=== PATIENT | female | born 1970 | race Caucasian/White ===

== ENCOUNTER 2023-03-24 08:31 | Day surgery (SDC) | payer BC, SELFPAY ==
[2023-03-16 15:09] VITALS: BMI 24.7
[2023-03-24 08:48] VITALS: BMI 23.7
[2023-03-24 08:54] VITALS: BP 107/73; PULSE 88; RESP 18; TEMP 36.4; O2SAT 97
[2023-03-24] MEDS: LACTATED RINGER'S SOLUTION 1,000 ML 50 ML IV (08:56)
[2023-03-24 10:33] VITALS: BP 95/65; PULSE 66; RESP 20; TEMP 36.1; O2SAT 99
--- NOTE | 2023-03-24 10:33 | OP_ITS ---
OPERATION DATE: ??03/24/2023 PREOPERATIVE DIAGNOSIS:? Epigastric pain, gastroesophageal reflux disease, left lower quadrant abdominal pain and bowel changes. POSTOPERATIVE DIAGNOSIS:? Mild antral gastritis as well as redundant spastic colon. PROCEDURE:? EGD with antral biopsy and colonoscopy to cecum. SURGEON:? Joselo Jauregui M.D. ANESTHESIA:? Monitored anesthesia care. ESTIMATED BLOOD LOSS:? Less than 1 mL. INDICATIONS AND CONSENT:? Patient is a 53-year-old female with history of intermittent left lower quadrant epigastric abdominal pain, as well as intermittent loose stools.? Indications, risks, benefits, alternatives of proceeding with EGD and colonoscopy were explained extensively to the patient, including the risks of bleeding, aspiration, esophageal/gastric/duodenal or colonic perforation or anesthetic complications.? All of her questions were answered.? Informed consent was obtained. PROCEDURE:? Patient was brought to the operating room, placed in the left lateral decubitus position.? Monitored anesthesia care was provided.? Bite block was placed in the patient?s mouth.? Scope was inserted into the oropharynx.? Under direct visualization, it was advanced into the esophagus, past the cricopharyngeus, down to the stomach.? The stomach was insufflated with air.? The pylorus was traversed down to the descending portion of the duodenum.? There was no evidence of duodenitis or ulceration.? There was no scarring within the pyloric channel.?? The scope was pulled back into the stomach and retroflexed.? There was no significant hiatal hernia.? There was some mild antral gastritis without ulceration or bleeding.? Antral biopsy was obtained with pediatric cold biopsy forceps with good hemostasis.? The GE junction was noted at approximately 37 cm.? There was no distal esophagitis or Arredondo?s changes. The remainder of the esophagus was unremarkable.? The scope was then withdrawn.? Patient was then positioned for colonoscopy.? Rectal exam was performed, which showed no masses or blood.? The scope was then inserted into the anal canal.? Under direct visualization, it was advanced.? With the aid of abdominal compression, it was advanced to the cecum, as well as with positional changes.? There was noted to be a markedly redundant colon with spasm.? The cecum was clearly identified.? There was noted to be a good prep.? Upon withdrawal of the scope, mucosal surfaces were carefully examined.? There were no mass lesions or polyps.? No inflammatory changes or ulcerations. ?There was no significant diverticulosis.? The scope was retroflexed in the anal canal.? There was no significant hemorrhoidal disease.? The scope was then withdrawn.? The patient tolerated procedure well, was sent to recovery room in good condition. f/u colonoscopy should be in 10 years. CC: ?Patient?s family physician LUIS MIGUEL
[2023-03-24 10:48] VITALS: BP 89/60; PULSE 67; RESP 18; TEMP 36.3; O2SAT 99
== END 2023-03-24 11:10 | disposition home or self-care (01) ==
PROVIDERS: PCP Family Medicine; Visit Provider Surgery
PROC: (CPT 43239; principal; 2023-03-24 09:40)
DX: K29.70 Gastritis, unspecified, without bleeding (principal); Q43.8 Other specified congenital malformations of intestine; R10.13 Epigastric pain; K21.9 Gastro-esophageal reflux disease without esophagitis; R10.32 Left lower quadrant pain; R19.4 Change in bowel habit; M32.9 Systemic lupus erythematosus, unspecified; M35.00 Sjogren syndrome, unspecified; M06.9 Rheumatoid arthritis, unspecified; M50.10 Cervical disc disorder with radiculopathy, unspecified cervical region; Z85.3 Personal history of malignant neoplasm of breast; Z79.899 Other long term (current) drug therapy; E03.9 Hypothyroidism, unspecified; Z90.13 Acquired absence of bilateral breasts and nipples; Z90.710 Acquired absence of both cervix and uterus; Z90.722 Acquired absence of ovaries, bilateral; Z79.82 Long term (current) use of aspirin
CPT/HCPCS: 43239; 45378; 36415; 88305; 88342; J2704

== ENCOUNTER 2023-03-25 14:59 | Outpatient (OUT) | payer BC, SELFPAY ==
[2023-03-25] MEDS: VARICELLA-ZOSTER GE VAC,2 OF 2 0.5 ML VIAL IM (17:10)
== END 2023-03-25 15:00 | disposition home or self-care (01) ==
LOC: VACCLI 15:00
PROVIDERS: PCP Family Medicine; Visit Provider Family Medicine
DX: Z23 Encounter for immunization (principal)
CPT/HCPCS: 90750

== ENCOUNTER 2023-05-27 13:44 | Outpatient (OUT) | payer BC, SELFPAY ==
[2023-05-27] MEDS: VARICELLA-ZOSTER GE VAC,2 OF 2 0.5 ML VIAL IM (15:31)
== END 2023-05-27 13:45 | disposition home or self-care (01) ==
LOC: VACCLI 14:04
PROVIDERS: PCP Family Medicine; Visit Provider Family Medicine
DX: Z23 Encounter for immunization (principal)
CPT/HCPCS: 90471; 90750

== ENCOUNTER 2023-07-29 08:00 | Outpatient (OUT) | payer BC, SELFPAY ==
[2023-07-29] MEDS: COVID VAC 23-24(12UP)MODERNA/PF 50 MCG/0.5 ML VIAL IM (14:45)
== END 2023-07-29 08:01 | disposition home or self-care (01) ==
LOC: VACCLI 09-17 08:03
PROVIDERS: PCP Family Medicine; Visit Provider Family Medicine
DX: Z23 Encounter for immunization (principal)
CPT/HCPCS: 90480; 91322

== ENCOUNTER 2023-08-12 08:57 | Outpatient (OUT) | payer BC, SELFPAY ==
[2023-08-12 09:13] LABS: Basophils Percent Auto 0.6 % (0.2-2.0); Eosinophils Percent Auto 1.2 % (0.9-7.0); Hematocrit 37.5 % (36.0-48.0); Hemoglobin 12.3 g/dL (12.0-16.0); Lymphocytes Percent Auto 29.8 % (20.5-60.0); Mean Corpuscular HGB Conc 32.8 g/dL (29.9-35.2); Mean Corpuscular Hemoglobin 31.6 pg (26.7-34.0); Mean Corpuscular Volume 96.4 fL (81.0-99.0); Mean Platelet Volume 9.5 fL (9.5-13.5); Monocytes Absolute Auto 0.6 10^3/uL (0.3-0.8); Monocytes Percent Auto 18.5 % (1.7-12.0); Neutrophils Absolute Auto 1.7 10^3/uL (1.4-6.5); Neutrophils Percent Auto 49.9 % (43.0-75.0); Platelet Count 327 10^3/uL (150-450); Red Blood Count 3.89 10^6/uL (4.20-5.40); White Blood Count 3.4 10^3/uL (4.0-11.0)
[2023-08-12 09:40] LABS: Alanine Aminotransferase 34 U/L (14-59); Albumin Globulin Ratio 0.9; Albumin Level 3.7 g/dL (3.4-5.0); Alkaline Phosphatase 57 U/L (46-116); Anion Gap 10.6; Aspartate Amino Transferase 24 U/L (15-37); BUN Creatinine Ratio 17.9; Bilirubin Total 0.4 mg/dL (0.2-1.0); Calcium 8.9 mg/dL (8.5-10.1); Carbon Dioxide 30.6 mmol/L (21.0-32.0); Chloride 102 mmol/L (98-107); Estimated GFR (African America >60 (>=60); Estimated GFR (Non-African Ame >60 (>=60); Globulin 4.3 g/dL; Glucose 86 mg/dL (74-106); Potassium 4.2 mmol/L (3.5-5.1); Sodium 139 mmol/L (136-145)
[2023-08-12 10:17] LABS: Erythrocyte Sedimentation Rate 54 mm/hr (<=30)
== END 2023-08-12 08:58 | disposition home or self-care (01) ==
LOC: LAB 08:57
PROVIDERS: PCP Family Medicine
DX: M05.7A Rheumatoid arthritis with rheumatoid factor of other specified site without organ or systems involvement (principal); E78.49 Other hyperlipidemia
CPT/HCPCS: 36415; 80053; 85025; 85652

== ENCOUNTER 2023-09-29 19:04 | Outpatient (REF) | payer BC, SELFPAY ==
--- OUTSIDE RECORDS SUMMARY | 2023-09-29 19:08 | XMS_ITS | CCD ---
Author Name Unknown Address [address] [place] [address] Organization [facility] Care Team Providers Care Dragline Operator Helper Name Role Phone HOYLIBBYMARIZA Consulting Unavailable HOY, MARIZA Primary Care Unavailable HOY, MARIZA Attending Unavailable HOY, MARIZA Admitting Unavailable PASTOR, JACQUI Consulting Unavailable HOY, MARIZA Primary Care Unavailable PASTOR, JACQUI Attending Unavailable PASTOR, JACQUI Admitting Unavailable MISC, DR BRAMBILA Consulting Unavailable HOY, MARIZA Primary Care Unavailable MISC, DR BRAMBILA Attending Unavailable MISC, DR BRAMBILA Admitting Unavailable ZIEBER, DR GILBERT Llanes Consulting Unavailable MISC, DR BRAMBILA Consulting Unavailable HOY, MARIZA Primary Care Unavailable MISC, DR BRAMBILA Attending Unavailable MISC, DR BRAMBILA Admitting Unavailable KARASIK ., DR BEAVERS Consulting Unavailabl e HOY, MARIZA Primary Care Unavailable KARASIK ., DR BEAVERS Attending Unavailabl e KARASIK ., DR BEAVERS Admitting Unavailabl e WEST, DR IDA Temple Consulting Unavailable HOY, MARIZA Primary Care Unavailable MISC, DR BRAMBILA Attending Unavailable MISC, DR BRAMBILA Admitting Unavailable MISC, DR BRAMBILA Consulting Unavailable HOY, MARIZA Consulting Unavailable HOY, MARIZA Primary Care Unavailable HOY, MARIZA Attending Unavailable HOY, MARIZA Admitting Unavailable MISC, DR BRAMBILA Consulting Unavailable HOY, MARIZA Primary Care Unavailable MISC, DR BRAMBILA Attending Unavailable MISC, DR BRAMBILA Admitting Unavailable HOY, MARIZA Consulting Unavailable HOY, MARIZA Primary Care Unavailable HOY, MARIZA Attending Unavailable HOY, MARIZA Admitting Unavailable WEST, DR IDA Temple Consulting Unavailable PASTORJACQUI Consulting Unavailable HOY, MARIZA Primary Care Unavailable PASTOR, JACQUI Attending Unavailable PASTOR, JACQUI Admitting Unavailable Hoy, Mariza Primary Care Physician Mariza Wright Referring Unavailable Joselo STARKS Attending Unavailable Joselo STARKS Attending Unavailable Joselo STARKS Attending Unavailable EYAL ALEGRIA Attending Unavailable TOMAS CLINTON I Attending Unavailable TOMAS CLINTON I Attending Unavailable ASHLEIGH ZEE Attending Unavailable Allergies Allergy Classification Reported Allergen(s) Allergy Type Date of Onset Reaction(s) Facility (2 sources) Benzoyl Peroxide; Translations: [BENZOYL PEROXIDE] Drug Allergy 07-22-20 15 [facility] (1 source) Desonide Drug Allergy 04-05-20 13 [facility] (1 source) Sulfonamides (Antibiotic) Drug allergy (disorder) 04-05-20 13 [facility] (1 source) Misc-Other; Translations: [Misc-Other] Propensity to adverse reactions (disorder) 07-22-20 15 [facility] (3 sources) Sulfonamides (Antibiotic); Translations: [sulfa drugs] Drug allergy Discoloration of skin (finding) [facility] [place] (1 source) Adhesive agent; Translations: [ADHESIVE] Propensity to adverse reactions to drug (disorder) 09-21-[address] [facility] Repository (1 source) Sulfamethoxazole / Trimethoprim; Translations: [SULFAMETHOXAZOLE-T RIMETHOPRIM] Drug Allergy 02-02-[address] [facility] Rep[facility] (1 source) Sulfonamides (Antibiotic); Translations: [SULFA (SULFONAMIDE ANTIBIOTICS)] Propensity to adverse reactions to drug (disorder) 09-21-[address] [facility] Rep[facility] (1 source) ADHESIVE TAPE-SILICONES; Translations: [ADHESIVE TAPE-SILICONES] Propensity to adverse reactions to drug (disorder) 10-07-[address] [facility] Rep[facility] Medications Current Medications Medication Drug Class(es) Dates Sig (Normalized) Sig (Original) aspirin 81 mg chewable tablet (2 sources) Platelet Aggregation Inhibitor, Nonsteroidal Anti-inflammatory Drug Start: 3 aspirin 81 mg Chew Tab 81 mg = 1 tab(s), Chewed, Daily, Refills(s) 0 Start Date: 02/26/23 Status: Ordered hydroxychloroquine sulfate 200 mg oral tablet (2 sources) Antimalarial, Antirheumatic Agent Start: 3 hydroxychloroquine 200 mg Tab See Instructions, as directed, Refills(s) 0 Start Date: 02/26/23 Status: Ordered levothyroxine sodium 0.1 mg oral tablet (2 sources) l-Thyroxine Start: 3 take 1 tablet by mouth once daily levothyroxine 100 mcg (0.1 mg) Tab 100 mcg = 1 tab(s), Oral, Daily, Refills(s) 0 Start Date: 02/26/23 Status: Ordered liothyronine sodium 0.005 mg oral tablet (2 sources) l-Triiodothyronin e Start: 3 take 1 tablet by mouth once daily liothyronine 5 mcg Tab 5 mcg = 1 tab(s), Oral, Daily, Refills(s) 0 Start Date: 02/26/23 Status: Ordered magnesium oxide 500 mg oral tablet (2 sources) Start: 3 take 1 tablet by mouth once daily magnesium oxide 500 mg oral tablet 500 mg = 1 tab(s), Oral, Daily, Refills(s) 0 Start Date: 02/26/23 Status: Ordered pantoprazole 40 mg delayed release oral tablet (2 sources) Proton Pump Inhibitor Start: 3 take 1 tablet by mouth once daily Protonix 40 mg Tab-DR 40 mg = 1 tab(s), Oral, Daily, Refills(s) 0 Start Date: 02/26/23 Status: Ordered rifAXIMin 550 mg oral tablet (2 sources) Rifamycin Antibacterial Start: 3 take 1 tablet by mouth twice daily Xifaxan 550 mg oral tablet 550 mg = 1 tab(s), Oral, BID, Refills(s) 0 Start Date: 02/26/23 Status: Ordered 24 hr tofacitinib 11 mg extended release oral tablet (1 source) Start: 3 take 1 tablet by mouth once daily Xeljanz XR 11 mg oral tablet, extended release 11 mg = 1 tab(s), Oral, Daily, Refills(s) 0 Start Date: 02/26/23 Status: Ordered 24 hr upadacitinib 15 mg extended release oral tablet (1 source) Start: 3 Rinvoq 15 mg oral tablet, extended release Refills(s) 0 Start Date: 04/07/23 Status: Ordered Problems Active Problems Problem Classification Problem Date Documented Da te Episodic/Chronic Abdominal pain (11 sources) Left lower quadrant pain; Translations: [Epigastric pain] Onset: 3 Episodic Cancer of breast (3 sources) Malignant neoplasm of unspecified site of unspecified female breast; Translations: [MAL GABY UNS SITE UNS FEMALE BREAST] Onset: 3 Chronic Cancer of breast (2 sources) History of malignant neoplasm of breast 02-26-2023 Episodic Cardiac dysrhythmias (2 sources) Supraventricular tachycardia 02-26-2023 Chronic Disorders of lipid metabolism (1 source) Other hyperlipidemia; Translations: [OTHER HYPERLIPIDEMIA] Onset: 2 Chronic Esophageal disorders (3 sources) Gastroesophageal reflux disease without esophagitis; Translations: [Gastro-esophageal reflux disease without esophagitis] Onset: 3 Chronic Other circulatory disease (2 sources) Raynaud's disease 02-26-2023 Chronic Other circulatory disease (2 sources) History of pericarditis 02-26-2023 Episodic Other endocrine disorders (2 sources) Polycystic ovary 02-26-2023 Chronic Other gastrointestinal disorders (2 sources) Irritable bowel syndrome; Translations: [Irritable bowel syndrome without diarrhea] Onset: 3 Chronic Other gastrointestinal disorders (3 sources) Altered bowel function; Translations: [Change in bowel habit] Onset: 3 Episodic Other skin disorders (2 sources) Disorder of connective tissue 02-26-2023 Episodic Rheumatoid arthritis and related disease (2 sources) Rheumatoid arthritis 02-26-2023 Chronic Spondylosis; intervertebral disc disorders; other back problems (2 sources) Degeneration of cervical intervertebral disc 02-26-2023 Chronic Spondylosis; intervertebral disc disorders; other back problems (2 sources) Cervical radiculopathy 02-26-2023 Episodic Systemic lupus erythematosus and connective tissue disorders (4 sources) Sjogren's syndrome; Translations: [Systemic lupus erythematosus] 02-26-2023 Chronic Thyroid disorders (2 sources) Hypothyroidism 02-26-2023 Chronic Unclassified (4 sources) RHEU ARTH R FCT O SIT W/O ORG SY IN; Translations: [RHEU ARTH R FCT O SIT W/O ORG SY IN] Onset: 2 Unclassified (2 sources) CONTACT W/AND (SUSP) EXPOS COVID-19; Translations: [CONTACT W/AND (SUSP) EXPOS COVID-19] Onset: 2 Unclassified (2 sources) Body mass index 20-24 - normal 03-03-2023 Unclassified (1 source) Rheumatoid arthritis with rheumatoid factor of other specified site without organ or systems involvement; Translations: [Rheumatoid arthritis with rheumatoid factor of other specified site without organ or systems involvement] Onset: 2 Varicose veins of lower extremity (2 sources) Varicose veins of lower extremity 02-26-2023 Episodic Viral infection (1 source) COVID-19; Translations: [COVID-19] Onset: 2 Past or Other Problems Problem Classification Problem Date Documented Da te Episodic/Chronic Immunizations and screening for infectious disease (11 sources) Encounter for screening for other viral diseases; Translations: [Encounter for screening for respiratory tuberculosis] Onset: 09-30-2022 Episodic Other aftercare (6 sources) Other apartment hotel manager (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; Translations: [OTH PUBLIC HEALTH CLINICAL NURSE SPECIALIST CURRENT DRUG THERAPY] Onset: 08-25-2022 Episodic Other bone disease and musculoskeletal deformities (4 sources) Other specified disorders of bone density and structure, other site; Translations: [OTH D/O BONE DEN STRUCT OTH SITE] Onset: 08-28-2022 Episodic Other screening for suspected conditions (not mental disorders or infectious disease) (4 sources) Encounter for screening for malignant neoplasm of cervix; Translations: [ENC SCREENING MALIG NEOPLASM CERV] Onset: 09-23-2022 Episodic Unclassified (1 source) RHEU ARTH R FCT O SIT W/O ORG SY IN; Translations: [RHEU ARTH R FCT O SIT W/O ORG SY IN] Onset: 02-04-2023 Unclassified (1 source) CONTACT W/AND (SUSP) EXPOS COVID-19; Translations: [CONTACT W/AND (SUSP) EXPOS COVID-19] Onset: 05-18-2022 Unclassified (1 source) Rheumatoid arthritis with rheumatoid factor of other specified site without organ or systems involvement; Translations: [Rheumatoid arthritis with rheumatoid factor of other specified site without organ or systems involvement] Onset: 01-28-2023 Results Test Name Value Interpretation Reference Range Facility Follow-Upon 08-19-2023 Follow-Up [id number] Yamileth Small 1970 F Date Provider Department Center 08/19/2023 TOMAS ROBERTO I [facility] No family history on file Level of Service:10328 [place] OFFICE/OUTPATIENT ESTABLISHED MOD MDM 30-39 MIN Reason for Visit and Comments: Follow-up [713031] - Follow up [facility] Orders Onlyon 08-12-2023 Orders Only [id number] Yamileth Small 1970 F Date Provider Department [place] 08/12/2023 [id number], HISTORICAL C PRIM [facility] No family history on file [facility] 36on 08-10-2023 36 Left detailed messag e that labs were placed. [facility] Orders Onlyon 08-10-2023 Orders Only [id number] Yamileth Small 1970 F Date Provider Department [place] 08/10/2023 TOMAS ROBERTO I [facility] No family history on file [facility] 36on 08-05-2023 36 Patient has an apt o n and is wondering if there are any labs she needs to do prior to her visit. Please advise. Thanks! [facility] 36 Patient called [facility] Follow-Upon 06-03-2023 Follow-Up [id number] Yamileth Small 1970 F Date Provider Department Center 06/03/2023 TOMAS ROBERTO I [facility] No family history on file Level of Service:94584 [place] OFFICE/OUTPATIENT ESTABLISHED MOD MDM 30-39 MIN (GC) Reason for Visit and Comments: Follow-up [325308] - Follow up [facility] 36on 04-08-2023 36 Last visit pt instru cted to finish current supply and then stop [facility] Ambulatory Visit Summaryon 0 04-07-2023 Ambulatory Visit Summary TEETEE SMALL :1970 Visit Date:04/07/2023 Ambulatory Visit Instructions Your Diagnosis IBS (irritable bowel syndrome) Epigastric abdominal pain Your Care Team Attending Physician - RAUDEL PUENTES, Joselo Llanes Primary Care Physician - Mariza Wright MD This Is Your Medications List upadacitinib (Rinvoq 15 mg oral tablet, extended release) Contact prescribing physician if questions or concerns aspirin (aspirin 81 mg Chew Tab) hydroxychloroquine (hydroxychloroquine 200 mg Tab) levothyroxine (levothyroxine 100 mcg (0.1 mg) Tab) liothyronine (liothyronine 5 mcg Tab) magnesium oxide (magnesium oxide 500 mg oral tablet) pantoprazole (Protonix 40 mg Tab-DR) rifaximin (Xifaxan 550 mg oral tablet) Procedures Performed Colonoscopy (03/24/2023), EGD - Esophagogastroduodenoscopy (03/24/2023), Colonoscopy (07/24/2015), Colonoscopy (02/2007), Bilateral mastectomy, Biopsy of breast, Cervical discectomy, section, section, Excision of lymph node, Excision of salivary gland, Granuloma, History of cardiac radiofrequency ablation, RELL BSO - Total abdominal hysterectomy and bilateral salpingo-oophorectomy. Medications What How Much When Instructions Unchanged upadacitinib (Rinvoq 15 mg oral tablet, extended release) Unchanged aspirin (aspirin 81 mg Chew Tab) 1 Tablets Chewed Every day Contact prescribing physician if questions or concerns Unchanged hydroxychloroquine (hydroxychloroquine 200 mg Tab) See instructions as directed Contact prescribing physician if questions or concerns Unchanged levothyroxine (levothyroxine 100 mcg (0.1 mg) Tab) 1 Tablets By Mouth Every day Contact prescribing physician if questions or concerns Unchanged liothyronine (liothyronine 5 mcg Tab) 1 Tablets By Mouth Every day Contact prescribing physician if questions or concerns Unchanged magnesium oxide (magnesium oxide 500 mg oral tablet) 1 Tablets By Mouth Every day Contact prescribing physician if questions or concerns Unchanged pantoprazole (Protonix 40 mg Tab-DR) 1 Tablets By Mouth Every day Contact prescribing physician if questions or concerns Unchanged rifaximin (Xifaxan 550 mg oral tablet) 1 Tablets By Mouth 2 times a day Contact prescribing physician if questions or concerns Allergies sulfa drugs (Discoloration of skin) Problems Ongoing - Any problem that you are currently receiving treatment for. Abdominal pain, LLQ BMI 24.0-24.9, adult Cervical radiculopathy Change in bowel habits DDD (degenerative disc disease), cervical Diffuse connective tissue disease Epigastric abdominal pain GERD (gastroesophageal reflux disease) History of breast cancer History of pericarditis Hypothyroidism IBS (irritable bowel syndrome) Polycystic ovaries Raynauds syndrome Rheumatoid arthritis Sjogrens syndrome SVT (supraventricular tachycardia) Systemic lupus erythematosus Varicose veins of legs Normal [facility] General Surgery Office/Clini c Noteon 04-07-2023 General Surgery Office/Clinic Note Chief Complaint post operative follow up HPI Staff 14 day post operative follow up post EGD with antral biopsy and colonoscopy. antrum with no inflammation, negative for H pylori; colonoscopy with redundant colon with spasm; patient improved with dietary changes. History of Present Illness s/p EGD and colonoscopy duet to epigastric and LLQ pain, bowel changes; antral bx negative for inflammation or H pylori; colonoscopy with redundant colon with spasm; Review of Systems ROS - Provider Constitutional: no fever, no sweats, no weight loss. Eyes: no glasses, no blurred vision, no visual loss. ENMT: no dentures, no hoarseness, no swallowing difficulties, no hearing loss, no ear infection(s), no nose bleeds. Cardiovascular: normal blood pressure, no chest pain, regular heartbeat, no heart murmur. Respiratory: no shortness of breath, no cough, no asthma, no wheezing. Gastrointestinal: no nausea, no vomiting, no diarrhea, no constipation, no blood in stool, no change in bowel habits, no abdominal pain, no hepatitis. Genitourinary: no kidney stones, no urine infection, no dysuria. Musculoskeletal: no pain, no weakness. Skin: no changing moles, no rash, no skin lumps. Neurologic: no seizures, no epilepsy, no headache. Psychiatric: no emotional or psychiatric problem. Heme/Lymph: no bleeding problems, no anemia, no blood clots, no transfusions. Allergy/Immunologic: no swollen lymph nodes/glands, no IV drug abuse. Other: Additional ROS info: Except as noted in the above Review of Systems and in the History of Present Illness, all other systems have been reviewed and are negative or noncontributory. Assessment/Plan 1. IBS (irritable bowel syndrome) (K58.9: Irritable bowel syndrome without diarrhea) recommend high fiber diet and daily fiber supplement; call with problems/questions. f/u screening colonoscopy in 10 years. 2. Epigastric abdominal pain (R10.13: Epigastric pain) improved with dietary changes; call with problems/questions. Follow-up No qualifying data available Problem List/Past Medical History Ongoing Abdominal pain, LLQ BMI 24.0-24.9, adult Cervical radiculopathy Change in bowel habits DDD (degenerative disc disease), cervical Diffuse connective tissue disease Epigastric abdominal pain GERD (gastroesophageal reflux disease) History of breast cancer History of pericarditis Hypothyroidism IBS (irritable bowel syndrome) Polycystic ovaries Raynauds syndrome Rheumatoid arthritis Sjogrens syndrome SVT (supraventricular tachycardia) Systemic lupus erythematosus Varicose veins of legs Historical No qualifying data Procedure/Surgical History Colonoscopy (03/24/2023), EGD - Esophagogastroduodenoscopy (03/24/2023), Colonoscopy (07/24/2015), Colonoscopy (02/2007), Bilateral mastectomy, Biopsy of breast, Cervical discectomy, section, section, Excision of lymph node, Excision of salivary gland, Granuloma, History of cardiac radiofrequency ablation, RELL BSO - Total abdominal hysterectomy and bilateral salpingo-oophorectomy. Medications aspirin 81 mg Chew Tab, 81 mg= 1 tab(s), Chewed, Daily hydroxychloroquine 200 mg Tab, See Instructions levothyroxine 100 mcg (0.1 mg) Tab, 100 mcg= 1 tab(s), Oral, Daily liothyronine 5 mcg Tab, 5 mcg= 1 tab(s), Oral, Daily magnesium oxide 500 mg oral tablet, 500 mg= 1 tab(s), Oral, Daily Protonix 40 mg Tab-DR, 40 mg= 1 tab(s), Oral, Daily Rinvoq 15 mg oral tablet, extended release Xifaxan 550 mg oral tablet, 550 mg= 1 tab(s), Oral, BID Allergies sulfa drugs (Discoloration of skin) Social History Alcohol - Denies Alcohol Use, 03/03/2023 Substance Abuse - Denies Substance Abuse, 03/03/2023 Tobacco Never (less than 100 in lifetime) Tobacco Use:. Never Smokeless Tobacco Use:., 03/03/2023 Family History Acute myocardial infarction: Father. Diabetes mellitus type 2: Mother. Heart disease: Mother and Father. Stroke: Father. Immunizations Vaccine Date Status Comments SARS-CoV-2 (COVID-19) mRNA-1273 vaccine 08/07/2022 Recorded SARSCoV2 mRNA(zvcsgjkzs-jmmy-slmyls) vac 01/01/2022 Recorded SARS-CoV-2 (COVID-19) mRNA-1273 vaccine 06/18/2021 Recorded 2023-02-26: TPV50 SARS-CoV-2 (COVID-19) mRNA-1273 vaccine 10/30/2020 Recorded SARS-CoV-2 (COVID-19) mRNA-1273 vaccine 10/02/2020 Recorded [place] Comment on above: Result Comment: Elec tronically Signed By: RAUDEL PUENTES, Joselo Barrera\Date and Time Signed: 04/07/23 14:01 EDT Reminderson 04-02-2023 Reminders - From: Cristal Gordon LPN To: GSN - Clinical; Sent: 04/02/2023 11:03:11 EDT Show up: 02/21/2033 07:00:00 EDT Subject: colonoscopy recall Due Date/Time: 03/24/2033 07:00:00 EDT Reminder/Recall Patient due for screening colonoscopy 03/24/2033. [place] Pathology Noteon 03-29-2023 Pathology Note [id number]#1.00CD:127 [place] Outside Colonoscopyon 2022 Outside Colonoscopy [id number]#1.00CD:127 [place] Pre-Certification Formon Pre-Certification Form [id number]#1.00CD:127 [place] Consent for Procedure/Surger yon 03-05-2023 Consent for Procedure/Surgery [id number]#1.00CD:127 [place] Facesheeton 03-04-2023 Facesheet [id number]#1.00CD:127 Normal [facility] Ambulatory Visit Summaryon 0 03-03-2023 Ambulatory Visit Summary TEETEE SMALL :1970 Visit Date:03/03/2023 Ambulatory Visit Instructions Your Care Team Attending Physician - Joselo STARKS MD Primary Care Physician - Mariza Wright MD Referring Physician - Mariza Wright MD This Is Your Medications List Contact prescribing physician if questions or concerns aspirin (aspirin 81 mg Chew Tab) hydroxychloroquine (hydroxychloroquine 200 mg Tab) levothyroxine (levothyroxine 100 mcg (0.1 mg) Tab) liothyronine (liothyronine 5 mcg Tab) magnesium oxide (magnesium oxide 500 mg oral tablet) pantoprazole (Protonix 40 mg Tab-DR) rifaximin (Xifaxan 550 mg oral tablet) tofacitinib (Xeljanz XR 11 mg oral tablet, extended release) Procedures Performed Colonoscopy (07/24/2015), Colonoscopy (02/2007), Bilateral mastectomy, Biopsy of breast, Cervical discectomy, section, section, Excision of lymph node, Excision of salivary gland, Granuloma, History of cardiac radiofrequency ablation, RELL BSO - Total abdominal hysterectomy and bilateral salpingo-oophorectomy. Discharge Vitals Heart Rate (Peripheral) 68 Respiratory Rate 16 Blood Pressure 114/68 Height 165 cm Height 65 in Weight 67.5 kg Weight 148.5 lb BMI 24.79 Medications What How Much When Instructions Unchanged aspirin (aspirin 81 mg Chew Tab) 1 Tablets Chewed Every day Contact prescribing physician if questions or concerns Unchanged hydroxychloroquine (hydroxychloroquine 200 mg Tab) See instructions as directed Contact prescribing physician if questions or concerns Unchanged levothyroxine (levothyroxine 100 mcg (0.1 mg) Tab) 1 Tablets By Mouth Every day Contact prescribing physician if questions or concerns Unchanged liothyronine (liothyronine 5 mcg Tab) 1 Tablets By Mouth Every day Contact prescribing physician if questions or concerns Unchanged magnesium oxide (magnesium oxide 500 mg oral tablet) 1 Tablets By Mouth Every day Contact prescribing physician if questions or concerns Unchanged pantoprazole (Protonix 40 mg Tab-DR) 1 Tablets By Mouth Every day Contact prescribing physician if questions or concerns Unchanged rifaximin (Xifaxan 550 mg oral tablet) 1 Tablets By Mouth 2 times a day Contact prescribing physician if questions or concerns Unchanged tofacitinib (Xeljanz XR 11 mg oral tablet, extended release) 1 Tablets By Mouth Every day Contact prescribing physician if questions or concerns Allergies sulfa drugs (Discoloration of skin) Problems Ongoing - Any problem that you are currently receiving treatment for. BMI 24.0-24.9, adult Cervical radiculopathy DDD (degenerative disc disease), cervical Diffuse connective tissue disease History of breast cancer History of pericarditis Hypothyroidism Polycystic ovaries Raynauds syndrome Rheumatoid arthritis Sjogrens syndrome SVT (supraventricular tachycardia) Systemic lupus erythematosus Varicose veins of legs Normal [facility] RAD - CT Reporton 03-03-2023 RAD - CT Report [id number]#[id number]:127 Normal [facility] Orders Onlyon 03-02-2023 Orders Only [id number] Yamileth Small 1970 F Date Provider Department Center 03/02/2023 Hannah4-EYAL ALEGRIA [facility] No family history on file Normal [facility] Physician Referralon 023 Physician Referral [id number]:[address] [facility] [address] ABD/PELV W CONon 02-13-[address] ABD/PELV W CON EXAMINATION: CT ABD/ PELV W CON, 02/12/2023 8:07 AM EDT HISTORY: Left lower quadrant pain COMPARISON: 09/12/2020 TECHNIQUE: CT scan of the abdomen and pelvis was performed with IV contrast. CT dose reduction technique was used, including Automated Exposure Control. FINDINGS: LUNG BASES: No visible pulmonary or pleural disease. LIVER: No enlargement, atrophy, abnormal density, or significant focal lesion. BILIARY: No dilatation or calcification. PANCREAS: No lesion, fluid collection, ductal dilatation, or atrophy. SPLEEN: No enlargement or focal lesion. ADRENALS: No mass or enlargement. KIDNEYS: 3 cm right renal cyst. No hydronephrosis BOWEL/MESENTERY: Moderate amount of stool throughout the colon. Nonobstructive bowel gas pattern. AORTA/VASCULAR: No aneurysm or dissection. RETROPERITONEUM: No mass or adenopathy. LYMPH NODES: No adenopathy. URINARY BLADDER: No visible focal wall thickening, lesion, or calculus. PELVIC ORGANS: Hysterectomy ABDOMINAL WALL: 1 cm umbilical hernia containing fat without strangulation BONES: No bony lesion or fracture. OTHER: Negative. IMPRESSION: Moderate to large amount of stool throughout the colon No acute intraperitoneal process Electronically authenticated by: IDA SOTO Date: 2023-02-12 09:54 Normal [facility] Orders Onlyon 02-08-2023 Orders Only [id number] Yamileth Small denysbarinelson 1970 F Date Provider Department Center 02/08/2023 [id number], [facility] No family history on file Normal [facility] QUANTIFERON TB GOLD PLUSon 0 02-07-2023 QuantiFERON Criteria Comment Normal [facility] Comment on above: Result Comment: Rehan tiFERON-TB Gold Plus is a qualitative indirect test for M tuberculosis infection (including disease) and is intended for use in conjunction with risk assessment, radiography, and other medical and diagnostic evaluations. The QuantiFERON-TB Gold Plus result is determined by subtracting the Nil value from either TB antigen (Ag) value. The Mitogen tube serves as a control for the test. Performed By: #### Q NTTB #### [facility] [address] [place] [address] Dr. Jazmyn Saavedra QuantiFERON Incubation Incubation performed. Normal [facility] Comment on above: Performed By: #### Q NTTB #### [facility] [address] [place] [address] Dr. Jazmyn Saavedra QuantiFERON Mitogen Value 6.87 IU/mL Normal [facility] Comment on above: Performed By: #### Q NTTB #### [facility] [address] [place] [address] Dr. Jazmyn Saavedra QuantiFERON Nil Value 0.00 IU/mL Normal [facility] Comment on above: Performed By: #### Q NTTB #### [facility] [address] [place] [address] Dr. Jazmyn Saavedra QuantiFERON TB1 Ag Value 0.00 IU/mL Normal [facility] Comment on above: Performed By: #### Q NTTB #### [facility] [address] [place] [address] Dr. Jazmyn Saavedra QuantiFERON TB2 Ag Value 0.00 IU/mL Normal [facility] Comment on above: Performed By: #### Q NTTB #### [facility] [address] [place] [address] Dr. Jazmyn Saavedra QuantiFERON-TB Gold Plus Negative Normal Negative [facility] Comment on above: Result Comment: No r esponse to M tuberculosis antigens detected. Infection with M tuberculosis is unlikely, but high risk individuals should be considered for additional testing (ATS/IDSA/CDC Clinical Practice Guidelines, 2017). The reference range is an Antigen minus Nil result of <0.35 IU/mL. Chemiluminescence immunoassay methodology Performed By: #### Q NTTB #### [facility] [address] [place] [address] Dr. Jazmyn Saavedra HEP B COREon 02-06-2023 Hep B Core Ab, Tot Negative Normal Negative [facility] Comment on above: Performed By: #### S EDR #### [facility] [address] [place] [address] Dr. Jazmyn Saavedra HEP B SURFACE ANTIGEN SCREEN on 02-06-2023 HBsAg Screen Negative Normal Negative [facility] Comment on above: Performed By: #### H BSANS #### [facility] [address] [place] [address] Dr. Jazmyn Saavedra CBC AUTO DIFFon 02-05-2023 BASO # 0.0 103/ul Normal 0.0-0.1 [facility] Comment on above: Performed By: #### C BC #### [facility] [address] [place] [address] Dr. Jazmyn Saavedra Basophils/100 WBC (Bld) 0.5 % Normal 0.2-2.0 [facility] Comment on above: Performed By: #### C BC #### [facility] [address] [place] [address] Dr. Jazmyn Saavedra EO # 0.0 103/ul Normal 0.0-0.7 [facility] Comment on above: Performed By: #### C BC #### [facility] [address] [place] [address] Dr. Jazmyn Saavedra Eosinophils/100 WBC (Bld) 0.8 % Critically low 0.9-7.0 [facility] Comment on above: Performed By: #### C BC #### [facility] [address] [place] [address] Dr. Jazmyn Saavedra Erythrocyte distribution width (RBC) [Ratio] 13.2 % Normal 11.0-15.0 [facility] Comment on above: Performed By: #### C BC #### [facility] [address] [place] [address] Dr. Jazmyn Saavedra Hematocrit (Bld) [Volume fraction] 41.1 % Normal 36.0-48.0 [facility] Comment on above: Performed By: #### C BC #### [facility] [address] [place] [address] Dr. Jazmyn Saavedra Hemoglobin (Bld) [Mass/Vol] 13.4 g/dL Normal 12.0-16.0 [facility] Comment on above: Performed By: #### C BC #### [facility] [address] [place] [address] Dr. Jazmyn Saavedra IG # 0.01 10e3/ul Normal 0.00-0.03 [facility] Comment on above: Performed By: #### C BC #### [facility] [address] [place] [address] Dr. Jazmyn Saavedra IG % 0.3 % Normal 0.0-0.5 [facility] Comment on above: Performed By: #### C BC #### [facility] [address] [place] [address] Dr. Jazmyn Saavedra LYMPH # 1.2 103/ul Normal 1.2-3.8 [facility] Comment on above: Performed By: #### C BC #### [facility] [address] [place] [address] Dr. Jazmyn Saavedra Lymphocytes/100 WBC (Bld) 31.9 % Normal 20.5-60.0 [facility] Comment on above: Performed By: #### C BC #### [facility] [address] [place] [address] Dr. Jazmyn Saavedra MANUAL DIFF REQ NO Normal [facility] Comment on above: Performed By: #### C BC #### [facility] [address] [place] [address] Dr. Jazmyn Saavedra MCH (RBC) [Entitic mass] 30.6 pg Normal 26.7-34.0 [facility] Comment on above: Performed By: #### C BC #### [facility] [address] [place] [address] Dr. Jazmyn Saavedra MCHC (RBC) [Mass/Vol] 32.6 g/dL Normal 29.9-35.2 [facility] Comment on above: Performed By: #### C BC #### [facility] [address] [place] [address] Dr. Jazmyn Saavedra MCV (RBC) [Entitic vol] 93.8 fL Normal 81.0-99.0 [facility] Comment on above: Performed By: #### C BC #### [facility] [address] [place] [address] Dr. Jazmyn Saavedra MONO # 0.5 103/ul Normal 0.3-0.8 [facility] Comment on above: Performed By: #### C BC #### [facility] [address] [place] [address] Dr. Jazmyn Saavedra Monocytes/100 WBC (Bld) 14.1 % Critically high 1.7-12.0 [facility] Comment on above: Performed By: #### C BC #### [facility] [address] [place] [address] Dr. Jazmyn Saavedra NEUT # 1.9 103/ul Normal 1.4-6.5 [facility] Comment on above: Performed By: #### C BC #### [facility] [address] [place] [address] Dr. Jazmyn Saavedra Neutrophils/100 WBC (Bld) 52.4 % Normal 43.0-75.0 [facility] Comment on above: Performed By: #### C BC #### [facility] [address] [address] [address] Jazmyn Saavedra Platelet mean volume (Bld) [Entitic vol] 9.4 fL Critically low 9.5-13.5 [facility] Comment on above: Performed By: #### C BC #### [facility] [address] [address] [address] Jazmyn Saavedra PLT 342 103/ul Normal 150-450 [facility] Comment on above: Performed By: #### C BC #### [facility] [address] [address] [address] Jazmyn Saavedra RBC 4.38 106/ul Normal 4.20-5.40 [facility] Comment on above: Performed By: #### C BC #### [facility] [address] [place] [address] Dr. Jazmyn Saavedra WBC 3.7 103/ul Critically low 4.0-11.0 [facility] Comment on above: Performed By: #### C BC #### [facility] [address] [place] [address] Dr. Jazmyn Saavedra FREE THYROXINE INDEX T7on FTI 3.20 Normal 1.30-4.50 [facility] Comment on above: Performed By: #### S EDR #### [facility] [address] [place] [address] Dr. Jazmyn Saavedra T3U 36.0 % Normal 30.0-39.0 [facility] Comment on above: Performed By: #### S EDR #### [facility] [address] [address] [address] Jazmyn Saavedra T4 [Mass/Vol] 8.90 ug/dL Normal 4.80-13.90 [facility] Comment on above: Performed By: #### S EDR #### [facility] [address] [place] [address] Dr. Jazmyn Saavedra GLYCOHEMOGLOBIN A1Con 2022 ADA RECOMMENDATION SEE BELOW Normal [facility] Comment on above: Result Comment: ADA RECOMMENDED LIMIT 4.0 - 6.0 ADA THERAPEUTIC TARGET < 7.0 ACTION SUGGESTED > 7.0 Performed By: #### S EDR #### [facility] [address] [address] [address] Jazmyn Saavedra Glucose [Mass/Vol] 123 mg/dL Normal [facility] Comment on above: Performed By: #### S EDR #### [facility] [address] [address] [address] Jazmyn Saavedra HbA1c (Bld) [Mass fraction] 5.9 % Normal 4.5-6.2 [facility] Comment on above: Performed By: #### S EDR #### [facility] [address] [place] [address] Dr. Jazmyn Saavedra LIPID PROFILEon 02-05-2023 CHOL-HDL RATIO NORM SEE BELOW Normal [facility] Comment on above: Result Comment: 3.3 - 4.4 LOW RISK 4.4 - 7.1 AVERAGE RISK 7.1 - 11.0 MODERATE RISK >11.0 HIGH RISK Performed By: #### S EDR #### [facility] [address] [place] [address] Dr. Jazmyn Saavedra Cholesterol [Mass/Vol] 256 mg/dL Critically high <=200 [facility] Comment on above: Performed By: #### S EDR #### [facility] [address] [place] [address] Dr. Jazmyn Saavedra Cholesterol in HDL [Mass/Vol] 108 mg/dL Critically high 40-60 [facility] Comment on above: Performed By: #### S EDR #### [facility] [address] [address] [address] Jazmyn Saavedra Cholesterol in LDL [Mass/Vol] 139.4 mg/dL Normal [facility] Comment on above: Performed By: #### S EDR #### [facility] [address] [address] [address] Jazmyn Saavedra Cholesterol.total/ Cholesterol in HDL [Mass ratio] 2.4 {ratio} Normal [facility] Comment on above: Performed By: #### S EDR #### [facility] [address] [address] [address] Jazmyn Saavedra HDL NORMAL > or = 60 mg/dl - LO W CARDIOVASCULAR RISK <40 mg/dl - HIGH CARDIOVASCULAR RISK Normal [facility] Comment on above: Performed By: #### S EDR #### [facility] [address] [address] [address] Jazmyn Saavedra LDL CALC NORMAL SEE BELOW Normal [facility] Comment on above: Result Comment: <100 mg/dl OPTIMAL 100 - 129 mg/dl NEAR OR ABOVE OPTIMAL 130 - 159 mg/dl BORDERLINE HIGH 160 - 189 mg/dl HIGH >190 mg/dl VERY HIGH Performed By: #### S EDR #### [facility] [address] [address] [address] Jazmyn Saavedra Triglyceride [Mass/Vol] 43 mg/dL Normal <=150 [facility] Comment on above: Performed By: #### S EDR #### [facility] [address] [address] [address] Jazmyn Saavedra VLDL CALC 8.6 mg/dL Normal [facility] Comment on above: Performed By: #### S EDR #### [facility] [address] [address] [address] Jazmyn Saavedra Orders Onlyon 02-05-2023 Orders Only [id number] Yamileth Small 1970 F Date Provider Department Center 02/05/2023 [id number], HISTORICAL C PHYS MED [facility] No family history on file Normal [facility] PROF 14(COMP METB)on 023 Albumin [Mass/Vol] 4.0 g/dL Normal 3.4-5.0 [facility] Comment on above: Performed By: #### T 7, CMP, LIPID, TSH #### [facility] [address] [place] [address] Dr. Jazmyn Saavedra Albumin/Globulin [Mass ratio] 0.9 {ratio} Normal [facility] Comment on above: Performed By: #### T 7, CMP, LIPID, TSH #### [facility] [address] [address] [address] Jazmyn Saavedra ALP [Catalytic activity/Vol] 57 U/L Normal 46-116 [facility] Comment on above: Performed By: #### T 7, CMP, LIPID, TSH #### [facility] [address] [place] [address] Dr. Jazmyn Saavedra ALT [Catalytic activity/Vol] 23 U/L Normal 14-59 [facility] Comment on above: Performed By: #### T 7, CMP, LIPID, TSH #### [facility] [address] [place] [address] Dr. Jazmyn Saavedra Anion gap [Moles/Vol] 13.8 mmol/L Normal [facility] Comment on above: Performed By: #### T 7, CMP, LIPID, TSH #### [facility] [address] [place] [address] Dr. Jazmyn Saavedra AST [Catalytic activity/Vol] 23 U/L Normal 15-37 [facility] Comment on above: Performed By: #### T 7, CMP, LIPID, TSH #### [facility] [address] [place] [address] Dr. Jazmyn Saavedra Bilirubin [Mass/Vol] 0.6 mg/dL Normal 0.2-1.0 [facility] Comment on above: Performed By: #### T 7, CMP, LIPID, TSH #### [facility] [address] [place] [address] Dr. Jazmyn Saavedra Calcium [Mass/Vol] 9.6 mg/dL Normal 8.5-10.1 [facility] Comment on above: Performed By: #### T 7, CMP, LIPID, TSH #### [facility] [address] [place] [address] Dr. Jazmyn Saavedra Chloride [Moles/Vol] 100 mmol/L Normal 98-107 [facility] Comment on above: Performed By: #### T 7, CMP, LIPID, TSH #### [facility] [address] [place] [address] Dr. Jazmyn Saavedra CO2 [Moles/Vol] 29.9 mmol/L Normal 21.0-32.0 [facility] Comment on above: Performed By: #### T 7, CMP, LIPID, TSH #### [facility] [address] [address] [address] Jazmyn Saavedra Creatinine [Mass/Vol] 0.89 mg/dL Normal 0.55-1.02 [facility] Comment on above: Performed By: #### T 7, CMP, LIPID, TSH #### [facility] [address] [address] [address] Jazmyn Saavedra EGFR-AF PANAMANIAN >60 Normal >=60 [facility] Comment on above: Performed By: #### T 7, CMP, LIPID, TSH #### [facility] [address] [address] [address] Jazmyn Saavedra EGFR-NON AF PANAMANIAN >60 Normal >=60 [facility] Comment on above: Performed By: #### T 7, CMP, LIPID, TSH #### [facility] [address] [address] [address] Jazmyn Saavedra Globulin (S) [Mass/Vol] 4.4 g/dL Normal [facility] Comment on above: Performed By: #### T 7, CMP, LIPID, TSH #### [facility] [address] [address] [address] Jazmyn Saavedra Glucose [Mass/Vol] 89 mg/dL Normal 74-106 [facility] Comment on above: Performed By: #### T 7, CMP, LIPID, TSH #### [facility] [address] [address] [address] Jazmyn Saavedra Potassium [Moles/Vol] 3.7 mmol/L Normal 3.5-5.1 [facility] Comment on above: Performed By: #### T 7, CMP, LIPID, TSH #### [facility] [address] [address] [address] Jazmyn Saavedra Protein [Mass/Vol] 8.4 g/dL Critically high 6.4-8.2 [facility] Comment on above: Performed By: #### T 7, CMP, LIPID, TSH #### [facility] [address] [address] [address] Jazmyn Saavedra Sodium [Moles/Vol] 140 mmol/L Normal 136-145 [facility] Comment on above: Performed By: #### T 7, CMP, LIPID, TSH #### [facility] [address] [address] [address] Jazmyn Saavedra Urea nitrogen [Mass/Vol] 17.0 mg/dL Normal 7.0-18.0 [facility] Comment on above: Performed By: #### T 7, CMP, LIPID, TSH #### [facility] [address] [address] [address] Jazmyn Saavedra Urea nitrogen/Creatinin e [Mass ratio] 19.1 mg/mg Normal [facility] Comment on above: Performed By: #### T 7, CMP, LIPID, TSH #### [facility] [address] [place] [address] Dr. Jazmyn Saavedra TSHon 02-05-2023 TSH 0.984 uIU/mL Normal 0.358-3.740 [facility] Comment on above: Performed By: #### S EDR #### [facility] [address] [place] [address] Dr. Jazmyn Saavedra Documentationon 01-29-2023 Documentation [id number] Yamileth Small 1970 F Date Provider Department Center 01/29/2023 [facility] No family history on file Reason for Visit and Comments: Specialty Pharmacy Note: [facility] Prescription [Other] [facility] Follow-Upon 01-28-2023 Follow-Up [id number] Yamileth Small 1970 F Date Provider Department Center 01/28/2023 EYAL SPENCE RMTali RHEUM [facility] No family history on file Level of Service:32185 [place] OFFICE/OUTPATIENT ESTABLISHED MOD MDM 30-39 MIN (GC) [facility] PAP ACOG PANEL 2: 30 to 65on 10-07-2022 . . Normal [facility] Comment on above: Result Comment: Perf ormed at: [facility] Performed By: #### S EDR #### [facility] [address] [place] [address] Dr. Jazmyn Saavedra Age Gdln ACOG Testing 30-65 Normal [facility] Comment on above: Performed By: #### S EDR #### [facility] [address] [place] [address] Dr. Jazmyn Saavedra DIAGNOSIS: Comment Normal [facility] Comment on above: Result Comment: NEGA TIVE FOR INTRAEPITHELIAL LESION OR MALIGNANCY. Performed at: [facility] Performed By: #### S EDR #### [facility] [address] [address] [address] Jazmyn Saavedra HPV Aptima Negative Normal Negative [facility] Comment on above: Result Comment: This nucleic acid amplification test detects fourteen high-risk HPV types (16,18,31,33,35,39,45,51,52,56,58,59,66,68) without differentiation. Performed at: =G Performed By: #### S EDR #### [facility] [address] [place] [address] Dr. Jazmyn Saavedra HPV Genotype Reflex Comment Normal [facility] Comment on above: Result Comment: Crit eria not met, HPV Genotype not performed. Performed at: [facility] Performed By: #### S EDR #### [facility] [address] [place] [address] Dr. Jazmyn Saavedra Methodology: Comment Normal [facility] Comment on above: Result Comment: This liquid based ThinPrep(R) pap test was screened with the use of an image guided system. Performed at: [facility] Performed By: #### S EDR #### [facility] [address] [place] [address] Dr. Jazmyn Saavedra Note: Comment Normal [facility] Comment on above: Result Comment: The Pap smear is a screening test designed to aid in the detection of premalignant and malignant conditions of the uterine cervix. It is not a diagnostic procedure and should not be used as the sole means of detecting cervical cancer. Both false-positive and false-negative reports do occur. . Performed at: [facility] Performed By: #### S EDR #### [facility] [address] [address] [address] Jazmyn Saavedra Performed by: Comment Normal [facility] Comment on above: Result Comment: Daryl Calhoun, Cutting Machine Operator Helper (ASCP) Performed at: [facility] Performed By: #### S EDR #### [facility] [address] [address] [address] Jazmyn Saavedra Specimen adequacy: Comment Normal [facility] Comment on above: Result Comment: Sati sfactory for evaluation. Endocervical component may not be distinguished in cases of atrophy. Performed at: [facility] Performed By: #### S EDR #### [facility] [address] [address] [address] Jazmyn Saavedra Orders Onlyon 08-31-2022 Orders Only [id number] Yamileth Small 1970 F Date Provider Department Center 08/31/2022 [id number], [place] [facility] [place] [facility] No family history on file Normal [facility] XR DEXA BONE DENSITYon 08-28 XR DEXA BONE DENSITY EXAMINATION: XR DEXA BONE DENSITY, 08/28/2022 8:06 AM EST HISTORY: Bone density finding COMPARISON: DEXA bone densitometry 08/26/2020 TECHNIQUE: Dual-energy X-ray absorptiometry (DEXA) bone density study performed for the axial skeleton. FINDINGS: SPINE ANALYSIS: Average bone mineral density is 1.087 g/cm2. T-score (standard deviation relative to young adult mean): -0.9 . -8.2% change since prior study. HIP ANALYSIS: Lowest bone mineral density is within the left femoral trochanter, 0.738 g/cm2. T-score (standard deviation relative to young adult mean): -1.0 . -3.1% change since prior study. IMPRESSION: [employer] Classification: Normal - Low Fracture Risk Electronically authenticated by: GILBERT GEORGE Date: 2022-08-28 08:47 Normal [facility] CBC AUTO DIFFon 08-25-2022 BASO # 0.0 103/ul Normal 0.0-0.1 [facility] Comment on above: Performed By: #### S EDR #### [facility] [address] [address] [address] Jazmyn Saavedra Basophils/100 WBC (Bld) 0.5 % Normal 0.2-2.0 [facility] Comment on above: Performed By: #### S EDR #### [facility] [address] [place] [address] Dr. Jazmyn Saavedra EO # 0.1 103/ul Normal 0.0-0.7 [facility] Comment on above: Performed By: #### S EDR #### [facility] [address] [place] [address] Dr. Jazmyn Saavedra Eosinophils/100 WBC (Bld) 1.2 % Normal 0.9-7.0 [facility] Comment on above: Performed By: #### S EDR #### [facility] [address] [place] [address] Dr. Jazmyn Saavedra Erythrocyte distribution width (RBC) [Ratio] 13.2 % Normal 11.0-15.0 [facility] Comment on above: Performed By: #### S EDR #### [facility] [address] [place] [address] Dr. Jazmyn Saavedra Hematocrit (Bld) [Volume fraction] 38.4 % Normal 36.0-48.0 [facility] Comment on above: Performed By: #### S EDR #### [facility] [address] [place] [address] Dr. Jazmyn Saavedra Hemoglobin (Bld) [Mass/Vol] 12.6 g/dL Normal 12.0-16.0 [facility] Comment on above: Performed By: #### S EDR #### [facility] [address] [place] [address] Dr. Jazmyn Saavedra IG # 0.01 10e3/ul Normal 0.00-0.03 [facility] Comment on above: Performed By: #### S EDR #### [facility] [address] [place] [address] Dr. Jazmyn Saavedra IG % 0.2 % Normal 0.0-0.5 [facility] Comment on above: Performed By: #### S EDR #### [facility] [address] [place] [address] Dr. Jazmyn Saavedra LYMPH # 1.7 103/ul Normal 1.2-3.8 [facility] Comment on above: Performed By: #### S EDR #### [facility] [address] [address] [address] Jazmyn Saavedra Lymphocytes/100 WBC (Bld) 40.8 % Normal 20.5-60.0 [facility] Comment on above: Performed By: #### S EDR #### [facility] [address] [place] [address] Dr. Jazmyn Saavedra MANUAL DIFF REQ NO Normal [facility] Comment on above: Performed By: #### S EDR #### [facility] [address] [place] [address] Dr. Jazmyn Saavedra MCH (RBC) [Entitic mass] 31.0 pg Normal 26.7-34.0 [facility] Comment on above: Performed By: #### S EDR #### [facility] [address] [place] [address] Dr. Jazmyn Saavedra MCHC (RBC) [Mass/Vol] 32.8 g/dL Normal 29.9-35.2 [facility] Comment on above: Performed By: #### S EDR #### [facility] [address] [place] [address] Dr. Jazmyn Saavedra MCV (RBC) [Entitic vol] 94.3 fL Normal 81.0-99.0 [facility] Comment on above: Performed By: #### S EDR #### [facility] Laboratory [address] [place] [address] Dr. Jazmyn Saavedra MONO # 0.5 103/ul Normal 0.3-0.8 [facility] Comment on above: Performed By: #### S EDR #### [facility] [address] [place] [address] Dr. Jazmyn Saavedra Monocytes/100 WBC (Bld) 11.9 % Normal 1.7-12.0 [facility] Comment on above: Performed By: #### S EDR #### [facility] [address] [place] [address] Dr. Jazmyn Saavedra NEUT # 1.9 103/ul Normal 1.4-6.5 [facility] Comment on above: Performed By: #### S EDR #### [facility] [address] [address] [address] Jazmyn Saavedra Neutrophils/100 WBC (Bld) 45.4 % Normal 43.0-75.0 [facility] Comment on above: Performed By: #### S EDR #### [facility] [address] [address] [address] Jazmyn Saavedra Platelet mean volume (Bld) [Entitic vol] 9.3 fL Critically low 9.5-13.5 [facility] Comment on above: Performed By: #### S EDR #### [facility] [address] [address] [address] Jazmyn Saavedra PLT 309 103/ul Normal 150-450 [facility] Comment on above: Performed By: #### S EDR #### [facility] [address] [address] [address] Jazmyn Saavedra RBC 4.07 106/ul Critically low 4.20-5.[address] [facility] Comment on above: Performed By: #### S EDR #### [facility] [address] [address] [address] Jazmyn Saavedra WBC 4.2 103/ul Normal 4.0-11.0 [facility] Comment on above: Performed By: #### S EDR #### [facility] [address] [address] [address] Jazmyn Saavedra CRPon 08-25-2022 CRP [Mass/Vol] mg/L Normal <=1.0 [facility] Comment on above: Performed By: #### C RP, CMP, LIPID #### [facility] [address] [address] [address] Jazmyn Saavedra LIPID PROFILEon 08-25-2022 CHOL-HDL RATIO NORM SEE BELOW Normal [facility] Comment on above: Result Comment: 3.3 - 4.4 LOW RISK 4.4 - 7.1 AVERAGE RISK 7.1 - 11.0 MODERATE RISK >11.0 HIGH RISK Performed By: #### C RP, CMP, LIPID #### [facility] [id number] Jazmyn Saavedra Cholesterol [Mass/Vol] 251 mg/dL Critically high <=200 [facility] Comment on above: Performed By: #### C RP, CMP, LIPID #### [facility] [id number] Jazmyn Saavedra Cholesterol in HDL [Mass/Vol] 102 mg/dL Critically high 40-60 [facility] Comment on above: Performed By: #### C RP, CMP, LIPID #### [facility] [address] [address] [address] Jazmyn Saavedra Cholesterol in LDL [Mass/Vol] 135.0 mg/dL Normal [facility] Comment on above: Performed By: #### C RP, CMP, LIPID #### [facility] [address] [address] [address] Jazmyn Saavedra Cholesterol.total/ Cholesterol in HDL [Mass ratio] 2.5 {ratio} Normal [facility] Comment on above: Performed By: #### C RP, CMP, LIPID #### [facility] [address] [address] [address] Jazmyn Saavedra HDL NORMAL > or = 60 mg/dl - LO W CARDIOVASCULAR RISK <40 mg/dl - HIGH CARDIOVASCULAR RISK Normal [facility] Comment on above: Performed By: #### C RP, CMP, LIPID #### [facility] [address] [address] [address] Jazmyn Saavedra LDL CALC NORMAL SEE BELOW Normal [facility] Comment on above: Result Comment: <100 mg/dl OPTIMAL 100 - 129 mg/dl NEAR OR ABOVE OPTIMAL 130 - 159 mg/dl BORDERLINE HIGH 160 - 189 mg/dl HIGH >190 mg/dl VERY HIGH Performed By: #### C RP, CMP, LIPID #### [facility] [address] [address] [address] Jazmyn Saavedra Triglyceride [Mass/Vol] 70 mg/dL Normal <=150 [facility] Comment on above: Performed By: #### C RP, CMP, LIPID #### [facility] [address] [address] [address] Jazmyn Saavedra VLDL CALC 14.0 mg/dL Normal [facility] Comment on above: Performed By: #### C RP, CMP, LIPID #### [facility] [address] [address] [address] Jazmny Saavedra Orders Onlyon 08-25-2022 Orders Only [id number] Yamileth Small 1970 F Date Provider Department Center 08/25/2022 [id number], HISTORICAL [facility] No family history on file Normal [facility] PROF 14(COMP METB)on 022 Albumin [Mass/Vol] 3.9 g/dL Normal 3.4-5.0 [facility] Comment on above: Performed By: #### C RP, CMP, LIPID #### [facility] [address] [place] [address] Dr. Jazmyn Saavedra Albumin/Globulin [Mass ratio] 1.0 {ratio} Normal [facility] Comment on above: Performed By: #### C RP, CMP, LIPID #### [facility] [address] [place] [address] Dr. Jazmyn Saavedra ALP [Catalytic activity/Vol] 49 U/L Normal 46-116 [facility] Comment on above: Performed By: #### C RP, CMP, LIPID #### [facility] [address] [place] [address] Dr. Jazmyn Saavedra ALT [Catalytic activity/Vol] 17 U/L Normal 14-59 [facility] Comment on above: Performed By: #### C RP, CMP, LIPID #### [facility] [address] [place] [address] Dr. Jazmyn Saavedra Anion gap [Moles/Vol] 10.1 mmol/L Normal [facility] Comment on above: Performed By: #### C RP, CMP, LIPID #### [facility] [address] [place] [address] Dr. Jazmyn Saavedra AST [Catalytic activity/Vol] 19 U/L Normal 15-37 [facility] Comment on above: Performed By: #### C RP, CMP, LIPID #### [facility] [address] [place] [address] Dr. Jzamyn Saavedra Bilirubin [Mass/Vol] 0.5 mg/dL Normal 0.2-1.0 [facility] Comment on above: Performed By: #### C RP, CMP, LIPID #### [facility] [address] [place] [address] Dr. Jazmyn Saavedra Calcium [Mass/Vol] 9.3 mg/dL Normal 8.5-10.1 [facility] Comment on above: Performed By: #### C RP, CMP, LIPID #### [facility] [address] [place] [address] Dr. Jazmyn Saavedra Chloride [Moles/Vol] 103 mmol/L Normal 98-107 [facility] Comment on above: Performed By: #### C RP, CMP, LIPID #### [facility] [address] [place] [address] Dr. Jazmyn Saavedra CO2 [Moles/Vol] 30.1 mmol/L Normal 21.0-32.0 [facility] Comment on above: Performed By: #### C RP, CMP, LIPID #### [facility] [address] [place] [address] Dr. Jazmyn Saavedra Creatinine [Mass/Vol] 0.80 mg/dL Normal 0.55-1.02 [facility] Comment on above: Performed By: #### C RP, CMP, LIPID #### [facility] [address] [place] [address] Dr. Jazmyn Saavedra EGFR-AF PANAMANIAN >60 Normal >=60 [facility] Comment on above: Performed By: #### C RP, CMP, LIPID #### [facility] [address] [place] [address] Dr. Jazmyn Saavedra EGFR-NON AF PANAMANIAN >60 Normal >=60 [facility] Comment on above: Performed By: #### C RP, CMP, LIPID #### [facility] [address] [place] [address] Dr. Jazmyn Saavedra Globulin (S) [Mass/Vol] 4.1 g/dL Normal [facility] Comment on above: Performed By: #### C RP, CMP, LIPID #### [facility] [address] [address] [address] Jazmyn Saavedra Glucose [Mass/Vol] 92 mg/dL Normal 74-106 [facility] Comment on above: Performed By: #### C RP, CMP, LIPID #### [facility] [address] [address] [address] Jazmyn Saavedra Potassium [Moles/Vol] 4.2 mmol/L Normal 3.5-5.1 [facility] Comment on above: Performed By: #### C RP, CMP, LIPID #### [facility] [address] [address] [address] Jazmyn Saavedra Protein [Mass/Vol] 8.0 g/dL Normal 6.4-8.2 [facility] Comment on above: Performed By: #### C RP, CMP, LIPID #### [facility] [address] [place] [address] Dr. Jazmyn Saavedra Sodium [Moles/Vol] 139 mmol/L Normal 136-145 [facility] Comment on above: Performed By: #### C RP, CMP, LIPID #### [facility] [address] [address] [address] Jazmyn Saavedra Urea nitrogen [Mass/Vol] 20.0 mg/dL Critically high 7.0-18.0 [facility] Comment on above: Performed By: #### C RP, CMP, LIPID #### [facility] [address] [address] [address] Jazmyn Saavedra Urea nitrogen/Creatinin e [Mass ratio] 25.0 mg/mg Normal [facility] Comment on above: Performed By: #### C RP, CMP, LIPID #### [facility] [address] [address] [address] Jazmyn Saavedra SED RATE [facility] 2021 SED RATE 47 mm/hr Critically high <=30 [facility] Comment on above: Performed By: #### S EDR #### [facility] [address] [address] [address] Jazmyn Saavedra ASYMPTOMATIC COVID-19 ANTIGE Non 05-18-2022 EUA Statement SEE BELOW Normal [facility] Comment on above: Result Comment: This test has not been FDA cleared or approved, but has been authorized by the FDA under an Emergency Use Authorization (EUA) for use by authorized laboratories certified under CLIA that meet the requirements to perform moderate or high complexity testing. This test has been authorized only for the detection of proteins from SARS-CoV-2, not for any other viruses or pathogens. The emergency use of this test is authorized for the duration of the declaration that circumstances exist justifying the authorization of emergency use of in vitro diagnostic tests for detection and/or diagnosis of Covid-19 under section 564(b)(1) of the Act, 21 U.S.C. 360bbb-3(b)(1), unless the declaration is terminated or authorization is revoked sooner. Performed By: #### S EDR #### [facility] [address] [place] [address] Dr. Jazmyn Saavedra SARS-CoV-2 (COVID-19) RNA NILES+probe Ql (Unsp spec) Positive Critically abnormal NEGATIVE [facility] Comment on above: Result Comment: SARS -CoV-2 antigen present; does not rule out coinfection with other pathogens. Performed By: #### S EDR #### [facility] [address] [place] [address] Dr. Jazmyn Saavedra Covid-19 PCR (CVDTB)on SARS-CoV-2 (COVID-19) RNA NILES+probe Ql (Unsp spec) Detected Critically abnormal NOT DETECTED [facility] Comment on above: Result Comment: This test is not yet approved or cleared by the [place] FDA. When there are no FDA-approved or cleared tests available, and other criteria are met, FDA can make tests available under an emergency access mechanism called an Emergency Use Authorization (EUA). The EUA for this test is supported by the [place] of Health and Human Service's declaration that circumstances exist to justify the emergency use of in vitro diagnostics for the detection and/or diagnosis of the virus that causes COVID-19. This EUA will remain in effect for the duration of the COVID-19 declaration justifying emergency of IVDs, unless it is terminated or revoked by the FDA (after which the test may no longer be used). Performed By: #### C VDTBH #### [facility] [address] [place], [place] [address] Dr. Jazmyn BARLOW MULTI-CANCER PANELon 02-12-2021 RESULT Results to be mailed directly to physician's office by reference lab. Normal [facility] Comment on above: Result Comment: Test performed by [facility] [address] [place] [address] [phone] No result expected. For billing and tracking purposes only. Performed By: #### 3 [id number] #### [facility] [address] Vital Signs Date Time Vital Sign Value Performing Clinician Flor romano 03-03-2023 14:35-0400 Blood Pressure Location Joselo STARKS [facility] 03-03-2023 14:35-0400 Diastolic blood pressure 68 mm[Hg] Joselo SCANLONL [facility] 03-03-2023 14:35-0400 Heart rate 68 /min Joselo NILL [facility] 03-03-2023 14:35-0400 Respiratory rate 16 /min Joselo SCANLONL [facility] 03-03-2023 14:35-0400 Systolic blood pressure 114 mm[Hg] Joselo STARKS [facility] Encounters Encounter Date Encounter Type Care Provider Facility Start: 08-19-2023 End: 08-19-2023 ambulatory TOMAS Solorio [facility] Start: 06-03-2023 End: 06-03-2023 ambulatory TOMAS Solorio [facility] Start: 04-07-2023 End: 04-08-2023 ambulatory Joselo STARKS Facility:[facility] Start: 04-07-2023 End: 04-07-2023 Patient encounter procedure Joselo STARKS [facility] Start: 03-24-2023 End: 03-25-2023 ambulatory Joselo STARKS Facility:CD:[id number] Start: 03-03-2023 End: 03-04-2023 ambulatory Mariza Hoy Facility:[facility] Start: 03-03-2023 End: 03-03-2023 Patient encounter procedure Joselo Llanes [facility] Start: 02-18-2023 ambulatory ASHLEIGH [facility] Start: 02-18-2023 ambulatory Mariza Hoy Facility:[facility] Start: 02-12-2023 Encounter for genera l adult medical examination without abnormal findings MARIZA HOY [facility] Start: 02-12-2023 End: 02-13-2023 ambulatory MARIZA WRIGHT Facility:[facility] Start: 02-05-2023 End: 02-06-[address] DOCTOR KELLOGG Facility:[facility] Start: 02-05-2023 End: 02-06-2023 Encounter for general adult medical examination without abnormal findings MARIZA HOY Facility:[facility] Start: 02-04-2023 End: 02-05-[address] IDA SOTO Facility:[facility] Start: 01-28-2023 End: 01-28[facility] Start: 09-23-2022 End: 09-23-[address] RUTHANN CA . Facility:[facility] Start: 08-28-2022 End: 08-29-[address] DOCTOR KELLOGG Facility:[facility] Start: 08-25-2022 End: 08-26-[address] DOCTOR KELLOGG Facility:[facility] Start: 08-07-2022 End: 08-08-2022 ambulatory MARIZA WRIGHT Facility:[facility] Start: 05-18-2022 End: 05-18-2022 ambulatory JACQUI BAUMANN Facility:[facility] Start: 05-12-2022 End: 05-12-2022 ambulatory JACQUI BAUMANN Facility:[facility] Procedures Date Procedure Procedure Detail Performing Clinician Start: 08-19-2023 Follow-up visit Follow-up TOMAS CLINTON Start: 03-24-2023 Colonoscopy Joselo STARKS Start: 03-24-2023 Esophagogastroduodenoscopy Joselo STARKS Start: 07-24-2015 Colonoscopy Joselo STARKS Start: 02-01-2007 Colonoscopy Joselo STARKS Bilateral mastectomy Joselo STARKS Biopsy of breast Joselo Galeas section Joselo Galeas Excision of cervical intervertebral disc Joselo STARKS Excision of lymph node Tony flori STARKS Comment on above: left inguinal Excision of salivary gland Madhuri STARKS Comment on above: x2 Granuloma (morpholog ic abnormality) Joselo STARKS Comment on above: x 2 History of radiofreq uency ablation operation for arrhythmia Joselo STARKS Total abdominal hyst erectomy with bilateral salpingo-oophorectomy Joselo STARKS Immunizations Immunization Date Immunization Notes Care Provider Fa [facility] 08-07-2022 SARS-CoV-2 (COVID-19 ) mRNA-1273 vaccine Joselo STARKS [facility] [place] 01-01-2022 SARS-CoV-2 mRNA (ldftjyjivbh-lbuj-lvbsg se) vaccine Joselo STARKS [facility] [place] 06-18-2021 SARS-CoV-2 (COVID-19 ) mRNA-1273 vaccine Joselo SCANLONL [facility] [place] Comment on above: Result Comment: 2022: [id number] 10-30-2020 SARS-CoV-2 (COVID-19 ) mRNA-1273 vaccine Joselo SCANLONL [facility] [place] 10-02-2020 SARS-CoV-2 (COVID-46 ) [id number] vaccine Joselo STARKS [facility] [place] Payers Date Payer Category Payer Unknown [id number] 2019 Unknown [id number] 1970 Unknown [id number] 2.16.84 [id number] 1970 Unknown [id number] 2.16.84 [id number] 1970 Unknown [id number] 2.16.84 [id number] 1970 Unknown [id number] 2.16.84 [id number] 1970 Unknown [id number] 2.16.84 [id number] 1970 Unknown [id number] 2.16.84 [id number] 1970 Unknown [id number] 2.16.84 [id number] 1970 Unknown [id number] 2.16.84 [id number] 1970 Unknown [id number] 2.16.84 [id number] 1970 Unknown [id number] 2.16.8 [id number] 1970 Unknown [id number] 2.16.8 [id number] 1970 Unknown [id number] 2.16.8 [id number] 1961 Self-pay [id number] Unknown [id number] 2.16.84 [id number] Social History Date Type Detail Facility Start: 03-03-2023 Tobacco smoking status Never s moked tobacco (finding) [facility] [place] Tobacco smoking status Never Gener al [facility] Sex Assigned At Female [facility] Functional Status Date Assessment Result Facility 03-03-2023 Functional Status N/A [facility] Clinical Notes 01-28-2023 to 08-19-2023 Note Date & Type Note Facility 08-19-2023 Note Attestation signed by Tomas Clinton MD at 08/19/2023 8:41 PM As the teaching physician, I have personally performed or re-performed the history of present illness, physical exam and medical decision making activities of the encounter and verified the medical student's documentation. I made pertinent changes as necessary to ensure accurate documentation. Subjective Patient ID: Teetee Small is a 53 y.o. female who presents for follow up visit HPI X-ray imaging she obtained at her previous visit showed mild right calcaneal Achilles enthesopathy. He right hip was unremarkable. She was switched from Xeljanz to Rinvoq. She reports today that Rinvoq did not work at all. She continues to take the Xeljanz. She states she is doing better compared to the Rinvoq due to side effects experience. Fatigue has improved but increased again past couple weeks with severe lack of energy noted. Believes she is having a flair with increased arthralgias in knees, hands, neck that radiates to shoulders, back and hip pain that radiates down legs bilaterally. X-rays in past have shown herniation of cervical spine below previous plate and lumbar spine. She has also experienced multiple mouth sores for which she is taking kenalog which has improved her sores. She continues to have prolonged morning pain and stiffness increased from 1-2 hours. She also complains of hyperpigmentation of her great toe nail and 2nd toe on the left secondary to Plaquenil use. Patient stopped cevimeline due to saliva overproduction and secondary nausea. Is currently taking OTC counter eyedrops Systane for dry eye. Patient attests to being under increased stress recently due to managing care of parents. Review of Systems Constitutional: Positive for fatigue. Negative for activity change, chills and fever. HENT: Positive for mouth sores. Negative for hearing loss, sore throat and trouble swallowing. Eyes: Negative for visual disturbance. Respiratory: Negative for chest tightness and shortness of breath. Cardiovascular: Positive for palpitations (Hx of SVT, had ablation in 2002, continues to have PVCs). Negative for chest pain. Gastrointestinal: Negative for constipation, diarrhea, nausea and vomiting. Musculoskeletal: Positive for arthralgias and joint swelling. Skin: Negative for rash. Neurological: Positive for numbness. Negative for light-headedness and headaches. Objective Visit Vitals Pulse 86 Resp 16 Physical Exam Constitutional: Appearance: Normal appearance. HENT: Head: Normocephalic and atraumatic. Mouth/Throat: Mouth: Mucous membranes are moist. Cardiovascular: Rate and Rhythm: Normal rate and regular rhythm. Heart sounds: Normal heart sounds. Pulmonary: Effort: Pulmonary effort is normal. Musculoskeletal: General: Swelling present. Tenderness: hands.Normal range of motion. Cervical back: Tenderness present. Neurological: General: No focal deficit present. Mental Status: She is alert and oriented to person, place, and time. There is currently no information documented on the homunculus. Go to the Rheumatology activity and complete the homunculus joint exam. Assessment/Plan 53 yo F with seropsositive (+RF) Rheupus (controlled with Xeljanz) presented today for follow up 1. Rheupus (+RF, synovitis). on Xeljanz. She has combination of SLE and RA. Not a candidate for TNF inhibitors She used arava before and it was not effective. Did not tolerate MTX nor had effect Rinvoq was ineffective and she's prefer to be back on Xeljanz which she's tried previously. She was provided with samples today 2. 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 She had prior hx bullous lesions over the elbows which improved with a short course of steroids. The most recent issue has been worsening joint pain. Currently disease is in remission clinically, no malar rash, no pleuritis but she does have occasional oral ulcers Stopped Plaquenil due to hyperpigmentation of her great toe 3. Secondary Sjogren's syndrome. + SSA and SSB, + RF, Dry eyes and dry mouth. No lymphadenopathy, no B symptoms. No indication of lymphoma. SPEP normal. She tried restasis eye drop which are ineffective Discontinued cevimeline 30 mg TID due to side effects including increased saliva production and nausea RTC in 4 months Patient was seen with attending physician, Dr. Clinton Cabell [facility] Medical Student , MS3 There are no diagnoses linked to this encounter. No diagnosis found. No orders of the defined types were placed in this encounter. No results found for this or any previous visit (from the past 36 hour(s)). No follow-ups on file. [facility] 06-03-2023 Note Attestation signed by Tomas Clinton MD at 06/03/2023 10:25 PM By using the attestations below, the signing clinician agrees that I have read and verify that the documentation has been personally reviewed by me and ensure that the documentation accurately reflects the encounter. GC: I personally saw this patient on the day of the encounter, performed the rosales portion(s) of the service and participated in the management and confirm the resident's documentation. Please note there may be an additional personal documentation from me. Subjective Patient ID: Teetee Small is a 53 y.o. female who presents for follow up visit HPI X-ray imaging she obtained at her previous visit shoed mild right calcaneal Achilles enthesopathy. He right hip was unremarkable. She was switched from Xeljanz to Rinvoq. She reports today that Rinvoq did not work at all. She's been on it for 2 months after her Shingles vaccine. She is experience profound fatigue and arthralgias. Her morning pain and stiffness increased from 1-2 hours to several. She also complains of recurrence of the hyperpigmentation of her great toe nail secondary to Plaquenil use. She feels that Restasis is not helping with her dry eyes. Review of Systems Constitutional: Positive for fatigue. Negative for activity change. HENT: Positive for mouth sores. Negative for trouble swallowing. Respiratory: Negative for chest tightness and shortness of breath. Cardiovascular: Negative for chest pain and palpitations. Gastrointestinal: Positive for diarrhea. Negative for nausea and vomiting. Musculoskeletal: Positive for arthralgias and joint swelling. Skin: Negative for rash. Neurological: Positive for numbness. Negative for light-headedness and headaches. Objective Visit Vitals Pulse 87 Resp 16 Physical Exam Constitutional: Appearance: Normal appearance. HENT: Head: Normocephalic and atraumatic. Mouth/Throat: Mouth: Mucous membranes are moist. Cardiovascular: Rate and Rhythm: Normal rate and regular rhythm. Pulmonary: Effort: Pulmonary effort is normal. Musculoskeletal: General: Tenderness (hands) present. No swelling. Normal range of motion. Neurological: General: No focal deficit present. Mental Status: She is alert and oriented to person, place, and time. There is currently no information documented on the homunculus. Go to the Rheumatology activity and complete the homunculus joint exam. Assessment/Plan 53 yo F with seropsositive (+RF) Rheupus (controlled with HCQ and Xeljanz) presented today for follow up 1. Rheupus (+RF, synovitis). on Xeljanz and plaqeunil. She has combination of SLE and RA. Not a candidate for TNF inhibitors She used arava before and it was not effective. Did not tolerate MTX nor had effect Rinvoq was ineffective and she's prefer to be back on Xeljanz which she's tried previously. She was provided with samples today 2. 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 She had prior hx bullous lesions over the elbows which improved with a short course of steroids. The most recent issue has been worsening joint pain. Currently disease is in remission clinically, no malar rash, no pleuritis but she does have occasional oral ulcers Will taper to Plaquenil 200 mg daily due to hyperpigmentation of her great toe 3. Secondary Sjogren's syndrome. + SSA and SSB, + RF, Dry eyes and dry mouth. No lymphadenopathy, no B symptoms. No indication of lymphoma. SPEP normal. She tried restasis eye drop which are ineffective Will start cevimeline 30 mg TID for more symptom control; side effects including increased RTC in 3 months Patient was seen with attending physician, Dr. Sun Queen MD Rheumatology Fellow, PGY-5 There are no diagnoses linked to this encounter. No diagnosis found. No orders of the defined types were placed in this encounter. No results found for this or any previous visit (from the past 36 hour(s)). No follow-ups on file. [facility] 03-03-2023 Note Chief Complaint consultation for LLQ pain, epigastric pain and diarrhea HPI Staff 53 year old female presents on consultation from Dr. Wright for LLQ pain, chest pain and change in bowel habits. In addition, she reports acid taste in mouth, especially when lying down, nausea, excessive bloating and flatulence. States she's had intermittent symptoms for 6 months. Denies rectal pain, rectal bleeding or vomiting. No unexplained weight loss. Was prescribed Cipro 500mg BID x 10 days and Flagyl 500mg TID x 10 days on 02/05; finished ATB's without change in symptoms. Prescribed Protonix 40mg daily several weeks ago; she is unsure if this has been helpful. CT ABD/pelvis completed 02/12 with moderate stool throughout colon. Last colonoscopy completed 07/2015 with redundant colon and prominent sigmoid and rectal veins. No known family history of colon cancer. History of Present Illness 53 yo female with h/o mixed connective tissue disease, SVT, hypothyroidism, Rheumatoid arthritis; DDD, cervical; referred for LLQ abd pain, epigastric pain and bowel changes; patient reports over 6 month h/o intermittent epigastric and LLQ pain, describes as an ache/tenderness; no triggers or radiation of pain; bowels alternate between loose and harder, increased gas and bloating; has tried to change her diet, no improvement; on Protonix for several weeks with no improvement; does not some regurgitation of bitter liquid at times, some nausea, no emesis; no dysphagia or odynophagia; no wt loss or early satiety; recent abd/pelvic ct scan with increased stool throughout colon; abd operations significant for x 2; RELL with bso; last colonoscopy 2014 with redundant colon and prominent rectal veins; on baby asa daily, no NSAIDs; no SBE prophylaxis; no fmhx of GI malignancy or IBD; no tobacco use. Review of Systems PHQ Score Initial Depression Screen Score: 0 ROS - Provider Constitutional: no fever, no sweats, no weight loss. Eyes: no glasses, no blurred vision, no visual loss. ENMT: no dentures, no hoarseness, no swallowing difficulties, no hearing loss, no ear infection(s), no nose bleeds. Cardiovascular: normal blood pressure, no chest pain, regular heartbeat, no heart murmur. Respiratory: no shortness of breath, no cough, no asthma, no wheezing. Gastrointestinal: no nausea, no vomiting, no diarrhea, no constipation, no blood in stool, no change in bowel habits, no abdominal pain, no hepatitis. Genitourinary: no kidney stones, no urine infection, no dysuria. Musculoskeletal: no pain, no weakness. Skin: no changing moles, no rash, no skin lumps. Neurologic: no seizures, no epilepsy, no headache. Psychiatric: no emotional or psychiatric problem. Heme/Lymph: no bleeding problems, no anemia, no blood clots, no transfusions. Allergy/Immunologic: no swollen lymph nodes/glands, no IV drug abuse. Other: Additional ROS info: Except as noted in the above Review of Systems and in the History of Present Illness, all other systems have been reviewed and are negative or noncontributory. Physical Exam Vitals & Measurements HR: 68(Peripheral) RR: 16 BP: 114/68 HT: 65 in HT: 165 cm WT: 67.5 kg WT: 148.5 lb BMI: 24.79 HEENT: normal conjunctiva, sclera clear, no scleral icterus, EOM intact, PERRLA, oral mucosa moist without lesions. Neck: trachea midline, no mass, symmetric, no thyromegaly or nodules, no adenopathy Respiratory: lungs CTA, respirations non labored. Cardiovascular: regular rate and rhythm, no murmur, no pedal edema or varicosities. Gastrointestinal: soft, non distended, mild tenderness, eigastrium and LLQ; no masses, no palpable hernias, diastasis recti no, no hepatosplenomegaly; normal bs Lymphatic: no cervical adenopathy, no supraclavicular adenopathy Musculoskeletal: normal gait, digits and nails without infection, nodes, cyanosis, clubbing. Skin: no rashes, no lesions, no ulcers, no subcutaneous nodules, induration. Psychiatric/Neuro: oriented to time, place, person, judgement normal, affect appropriate for age, insight intact, no focal deficits. Tests: labs reviewed, x-rays reviewed, review of old records completed, Discussed surgical options, risks, and possible complications with patient. Assessment/Plan 1. Change in bowel habits (R19.4: Change in bowel habit) plan EGD and colonoscopy with anesthesia, informed consent obtained. 2. Abdominal pain, LLQ (R10.32: Left lower quadrant pain) see # 1 3. GERD (gastroesophageal reflux disease) (K21.9: Gastro-esophageal reflux disease without esophagitis) see # 1 4. Epigastric abdominal pain (R10.13: Epigastric pain) see # 1 Follow-up No qualifying data available Problem List/Past Medical History Ongoing Abdominal pain, LLQ BMI 24.0-24.9, adult Cervical radiculopathy Change in bowel habits DDD (degenerative disc disease), cervical Diffuse connective tissue disease Epigastric abdominal pain GERD (gastroesophageal reflux disease) History of breast cancer History of pericar (more content not included)... [facility] Comment on above: Result Comment: Elec tronically Signed By: RAUDEL PUENTES, Joselo Barrera\Date and Time Signed: 03/03/23 16:35 EDT 02-18-2023 Note Patient ID: Teetee Small is a 53 y.o. female. Primary oncologist: Dr Kat Hernandez Primary Care Provider: Mariza Wright MD Subjective Pt presents alone for annual follow up. 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 Continue on Exemestane daily, nearing end of 10 years endocrine treatment. She is working with rheumatology for RA/Lupus treatment. She states LLQ abdominal pain over the last few months. CT done by PCP was unremarkable except for stool burden. She takes miralax daily, with daily BM. She reports change in stool consistency, more flatus. She feels more GERD recently, started on Protonix-no real relief. Cologuard negative 2021. She anticipates EGD/Colonoscopy next steps. HPI Mrs. Small is a pleasant 53 yo woman dx with LEFT breast IDC [id number] ER +4/IA+4 Her 2 non amplified s/p bilateral mastectomy (right pt choice prophylactic) per Dr Draper. OncotypeDx score of 14-no systemic chemotherapy given. GENETIC TESTING, [email or web address] Multi-Cancer Panel: no pathogenic mutation identified. Diagnosis: 04/10/2013 Left breast biopsy - Invasive ductal CA, grade 1. DCIS, cribriform type. ER/IA + (>90%), HER-2/julio cesar-negative (ratio 1.2), T: 1c, N: 0, M: x, Oncotype DX score: 14 Treatment to date: Cancer surgery 05/17/2013 Left breast mastectomy with SLN biopsy - Invasive ductal CA, high grade, 1.1cm. 0/8 nodes positive. ER/IA + (4+), HER-2/julio cesar-negative (ratio 1.0). Margins negative. 05/17/2013 Right breast mastectomy - No significant pathology. S/P BSO+ RELL on 08/20/14 06/22/2013 Tamoxifen 20mg. PO daily started--> 2013 changed to Exemestane after RELL CT chest 02/01/2018: No significant chronic interstitial changes or visible acute infiltrates. DEXA 08/24/2018: normal DEXA 08/26/2020: normal BCI results: High risk of recurrence/low likelihood of benefit from extended AI therapy. Decision to extend Hx rheumatoid arthritis/lupus Follows with Dr Clinton Review of Systems Constitutional: Negative for appetite change, chills, diaphoresis, fatigue and fever. HENT: Negative for mouth sores, nosebleeds, sore throat, tinnitus and trouble swallowing. Eyes: Negative for eye problems and icterus. Respiratory: Negative for chest tightness, cough, shortness of breath and wheezing. Cardiovascular: Negative for chest pain, leg swelling and palpitations. Gastrointestinal: Positive for abdominal pain (epigastric from acid, LLQ intermittent) and constipation. Negative for blood in stool, diarrhea, nausea, rectal pain and vomiting. S/p 2 c sections, hyst and left inguinal LN bx. Pain may be adhesions Genitourinary: Negative for bladder incontinence, difficulty urinating, dysuria, frequency, vaginal bleeding and vaginal discharge. Musculoskeletal: Positive for arthralgias. Negative for back pain, gait problem and myalgias. New RA pain right ball of foot, reproducible, positional. Feels like a hot poker sticking in it. Skin: Negative for itching and rash. Neurological: Negative for dizziness, gait problem, headaches, numbness and seizures. Hematological: Negative for adenopathy. Does not bruise/bleed easily. Psychiatric/Behavioral: Negative for confusion, depression and sleep disturbance. Objective BSA: 1.71 meters squared BP 109/60 (BP Location: Right arm, Patient Position: Sitting, BP Cuff Size: Adult) Pulse 86 Ht 1.537 m (5' 0.5 ) Wt 68.2 kg (150 lb 6.4 oz) LMP (LMP Unknown) SpO2 100% BMI 28.89 kg/m??? Physical Exam Vitals reviewed. Constitutional: General: She is not in acute distress. Appearance: Normal appearance. Eyes: Extraocular Movements: Extraocular movements intact. Conjunctiva/sclera: Conjunctivae normal. Pupils: Pupils are equal, round, and reactive to light. Cardiovascular: Rate and Rhythm: Normal rate and regular rhythm. Pulses: Normal pulses. Heart sounds: Normal heart sounds. Pulmonary: Effort: Pulmonary effort is normal. Breath sounds: Normal breath sounds. Chest: Breasts: Right: Absent. No swelling, mass, skin change or tenderness. Left: Absent. No swelling, mass, skin change or tenderness. Comments: Ballast Inspector offered, declined No signs chest wall recurrence. Pt reports sensation still off/numb Abdominal: General: Bowel sounds are normal. There is no distension. Palpations: Abdomen is soft. There is no mass. Tenderness: There is abdominal tenderness (LLQ). There is no guarding or rebound. Hernia: No hernia is present. Musculoskeletal: General: Tenderness present. No swelling. Normal range of motion. Cervical back: Neck supple. Right lower leg: No edema. Left lower leg: No edema. Comments: Compression stockings on Lymphadenopathy: Upper Body: Right upper body: No supraclavicular or axillary adenopathy. Left upper body: No supraclavicular or axillary adenopathy. Skin: General: Skin is warm and dry. Coloration: Skin is not jaundiced. Neurological: General: No focal deficit present. Mental Statu (more content not included)... [facility] 02-04-2023 Note PROCEDURE: XR SACROI LIAC JOINT 3 VIEWS COMPARISON: None. HISTORY: Rheumatoid factor positive rheumatoid arthritis FINDINGS: SACRUM: No fracture, disruption of the sacral ala line, or cortical irregularity. COCCYX: No fracture or suspicious alignment. SOFT TISSUES: No widening of the sacroiliac joints. No radiopaque foreign body. OTHER: IMPRESSION: No significant abnormality Electronically authenticated by: IDA SOTO Date: 2023-02-04 18:18 [facility] 02-04-2023 Note PROCEDURE: XR HIP LT 2 3V WO PELVIS COMPARISON: None. HISTORY: Rheumatoid factor positive rheumatoid arthritis FINDINGS: BONES:No acute fracture or dislocation. No significant degenerative changes. Heterotopic ossification superior to the greater trochanter SOFT TISSUES:Negative. No visible soft tissue swelling. EFFUSION:None visible. OTHER: Negative. IMPRESSION: No evidence of erosive or inflammatory arthritis Electronically authenticated by: IDA SOTO Date: 2023-02-04 18:17 [facility] 02-04-2023 Note PROCEDURE: XR FOOT R T MIN 3 VIEWS COMPARISON: None. HISTORY: Rheumatoid factor positive rheumatoid arthritis FINDINGS: BONES:No acute fracture or dislocation. Mild enthesopathic spurring of the calcaneus at the Achilles insertion. SOFT TISSUES:Negative. No visible soft tissue swelling. EFFUSION:None visible. OTHER: Negative. IMPRESSION: Mild calcaneal Achilles enthesopathy Electronically authenticated by: IDA SOTO Date: 2023-02-04 18:16 [facility] 01-29-2023 Note TB negative from 02/05 PA submitted via CMMs. Saira Kramer PharmD, DORYCP 02/26/23 2:43 PM [facility] [phone] [facility] 01-29-2023 Note LVM with pt to confi rm shipment from [facility]. F/U confirm shipment from [facility]. Goyo Winston CPhT [facility] 03/26/2310:[address] [facility] 01-29-2023 Note Called and spoke wit h the patient and she has not received medication yet, but the order has been placed from [facility]. We will F/U mondya to make sure the medication was received. Melissa Arizmendi, Loading Machine Adjuster 03/15/23 3:[address] [facility] 01-29-2023 Note Supervising Physicia n & Clinic:?? Dr. Alegria, Rheumatology Teetee Small is a 53 y.o. year-old female with PMH of rheumatoid arthritis and SLE. PharmD consulted for evaluation of Rinvoq for treatment of RA (ICD-10 M05.7A). Prescribed Dosing: Rinvoq R 15mg tablets, 1 PO daily Previous medications tried and failed (with duration/ dates): Multiple traditional DMARDs: leflunomide, methotrexate. Currently receiving hydroxychloroquine. She has most recently failed therapy with Xeljanz. No pertinent drug interactions noted No renal or hepatic adjustments necessary Vitals 165.1cm 63.5kg Pertinent labs:?? Have been ordered, are pending We are waiting on updated lab results to submit the PA for the patient. We will submit the authorization once we have updated TB and HBV titers. Follow-up: Patient is waiting until the end of February (her son's wedding) to change medications. She is planning on getting updated labs because she needs to also get them through work for her wellness visit. The patient is planning on getting labs done last week of February. Please follow up on lab results around Feb 26 2023. Eduard Tai PharmD, MICHELLE, CSP 01/29/23 8:50 AM [facility] [phone] [facility] 01-29-2023 Note Called pt, she will contact [facility] soon to discuss filling. F/U check rx/shipment status next week Goyo Winston CPhT [facility] 231:[address] [facility] 01-29-2023 Note Prior Authorization for Rinvoq has been approved 02/26/23-02/27/24. Case ID/Authorization Number:[id number] Must be filled at [facility], sending msg to MD for transfer. Calling pt to discuss filling at [facility]. LVM. F/U contact pt to discuss filling at [facility]. Goyo Catrachito, [facility] 238:[address] [facility] 01-29-2023 Note I called the patient to ensure that she has received his medication from [facility] and address any questions he may have, lvm. Kaleigh Rosas, [facility] 232:[address] [facility] 01-29-2023 Note I called and spoke w ith the pt to confirm delivery and she has received medication with no follow up questions. Melissa Arizmendi, Loading Machine Adjuster 03/30/23 10:[address] [facility] 01-28-2023 Note Attestation signed by Tomas Clinton MD at 01/29/2023 9:01 AM By using the attestations below, the signing clinician agrees that I have read and verify that the documentation has been personally reviewed by me and ensure that the documentation accurately reflects the encounter. GC: I personally saw this patient on the day of the encounter, performed the rosales portion(s) of the service and participated in the management and confirm the resident's documentation. Please note there may be an additional personal documentation from me. Subjective Patient ID: Teetee Small is a 53 y.o. female who presents for follow up visit HPI Today she repots increasing joint pain and stiffness, it appears that xeljanz is not working as well it was previously , today she has pain in R 2nd toe, and left hip Review of Systems Constitutional: Negative for activity change, appetite change, fatigue and fever. HENT: Negative for mouth sores and trouble swallowing. Respiratory: Negative for chest tightness and shortness of breath. Cardiovascular: Negative for chest pain and palpitations. Gastrointestinal: Negative for diarrhea, nausea and vomiting. Musculoskeletal: Positive for arthralgias. Negative for joint swelling. Skin: Negative for rash. Neurological: Negative for light-headedness and headaches. Objective Visit Vitals Pulse 85 Resp 16 Physical Exam Constitutional: Appearance: Normal appearance. HENT: Head: Normocephalic and atraumatic. Mouth/Throat: Mouth: Mucous membranes are moist. Cardiovascular: Rate and Rhythm: Normal rate and regular rhythm. Pulmonary: Effort: Pulmonary effort is normal. Musculoskeletal: General: Tenderness (L hip) present. No swelling. Normal range of motion. Neurological: General: No focal deficit present. Mental Status: She is alert and oriented to person, place, and time. There is currently no information documented on the homunculus. Go to the Rheumatology activity and complete the homunculus joint exam. Assessment/Plan 52 yo F with seropsositive (+RF) Rheupus (controlled with HCQ and Xeljanz) presented today for follow up 1. Rheupus (+RF, synovitis). on Xeljanz and plaqeunil. Xeljanz was worked previously but now noted worsening pain and sitffness She has combination of SLE and Ra. Not a candidate for TNF inhibitors She used arava before and it was not effective. Did not tolerate MTX nor had effect Will switch to rinvoq Obtain viral and tb screening today Xray of L hip and R foot 2. 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 She had prior hx bullous lesions over the elbows which improved with a short course of steroids. The most recent issue has been worsening joint pain. -Currently disease is in remission clinically, no malar rash, no pleuritis 3.secondary Sjogren's syndrome. + SSA and SSB, + RF, Dry eyes and dry mouth. We will consider pilocarpine in the future. No lymphadenopathy, no B symptoms. No indication of lymphoma. SPEP normal. currently on restasis eye drop -Stable, continue refresh and systane artificial tears Seen by Dr Alegria and Dr Clinton RTC 3 months Diagnoses and all orders for this visit: acute care clinical nurse specialist current use of immunosuppressive drug - Comprehensive metabolic panel; Future - CBC and differential; Future Screening-pulmonary TB - Quantiferon TB gold; Future Need for hepatitis B screening test - Hepatitis B surface antigen; Future - Hepatitis B core antibody, total; Future Rheumatoid arthritis of other site with positive rheumatoid factor (CMS/HCC) - Lipid panel; Future - upadacitinib ER (Rinvoq) 15 mg tablet extended release 24 hr; Take 1 tablet (15 mg) by mouth in the morning. Do not crush, chew or split. Swallow whole. - XR sacroiliac joints 3+ views; Future - XR hip left 2 or 3 views; Future - XR foot 3+ views right; Future Other orders - Zoster, Recombinant (Shingrix) Diagnosis Plan 1. FDC current use of immunosuppressive drug Comprehensive metabolic panel CBC and differential 2. Screening-pulmonary TB Quantiferon TB gold 3. Need for hepatitis B screening test Hepatitis B surface antigen Hepatitis B core antibody, total 4. Rheumatoid arthritis of other site with positive rheumatoid factor (CMS/HCC) Lipid panel upadacitinib ER (Rinvoq) 15 mg tablet extended release 24 hr XR sacroiliac joints 3+ views XR hip left 2 or 3 views XR foot 3+ views right Orders Placed This Encounter Procedures XR sacroiliac joints 3+ views Standing Status: Future Standing Expiration Date: 01/29/2024 Scheduling Instructions: The phone number to contact [facility] Radiology is Once you have been placed into the phone tree, it will prompt with the (more content not included)... [facility] Evaluation + Plan note No data available for this section General [facility] Discharge instructions No data available for this section General [facility] note No data available for this section General Surgery [place] Summary Purpose Family History No Family History Records FoundNo Family History Records FoundNo Family History Records FoundNo Family History Records Found Advance Directives No Advanced Directives Records FoundNo Advanced Directives Records FoundNo Advanced Directives Records FoundNo Advanced Directives Records Found Additional Source Comments INFORMATION SOURCE (unrecogn ized section and content) DATE CREATED AUTHOR 03/16/2021 [facility] DATE CREATED AUTHOR AUTHOR'S ORGANIZ ATION 02/15/2023 [facility] DATE CREATED AUTHOR AUTHOR'S ORGANIZ ATION 04/08/2023 [facility] DATE CREATED AUTHOR AUTHOR'S ORGANIZ ATION 08/21/2023 [facility] Patient Care team informatio n (unrecognized section and content) Personnel Name: Mariza Wright MD Address: Address: [address] [place] [address] Personnel Name: Mariza Wright MD Address: Address: [address] [place] [address] FOR RECORDS PERTAINING TO PATIENTS WHO ARE OR HAVE BEEN ENROLLED IN A CHEMICAL DEPENDENCY/SUBSTANCEABUSE PROGRAM, SOME INFORMATION MAY BE OMITTED. This clinical summary was aggregated from multiple sources. Caution should be exercised in using it in the provision of clinical care. This summary normalizes information from multiple sources, and as a consequence, information in this document may materially change the coding, format and clinical context of patient data. In addition, data may be omitted in some cases. CLINICAL DECISIONS SHOULD BE BASED ON THE PRIMARY CLINICAL RECORDS. [facility] [employer] [facility]. provides no warranty or guarantee of the accuracy or completeness of information in this document.
[2023-10-06 12:08] LABS: Age Gdln ACOG Testing Note (.); HPV Aptima Negative (Negative); IGP, Aptima HPV, rfx 16/18,45 Note (.)
== END 2023-09-29 19:05 | disposition home or self-care (01) ==
LOC: LAB 19:04
PROVIDERS: PCP Family Medicine; Visit Provider Physician Assistant
DX: Z01.419 Encounter for gynecological examination (general) (routine) without abnormal findings (principal)
CPT/HCPCS: 87624; G0145

== ENCOUNTER 2023-10-28 19:39 | Outpatient (REF) | payer BC, SELFPAY ==
--- OUTSIDE RECORDS SUMMARY | 2023-10-28 19:43 | XMS_ITS | CCD ---
Author Name Unknown Address [address] [place] [address] Organization [facility] Care Team Providers Care Delivery Driver/Supervisor Name Role Phone SILVIAYLIBBYMARIZA Consulting Unavailable HOY, MARIZA Primary Care Unavailable HOY, MARIZA Attending Unavailable HOY, MARIZA Admitting Unavailable PASTORJACQUI Consulting Unavailable HOY, MARIZA Primary Care Unavailable PASTORJACQUI MOONEY Attending Unavailable PASTORJACQUI MOONEY Admitting Unavailable MISC, DR BRAMBILA Consulting Unavailable [...] Consulting Unavailable HOY, MARIZA Primary Care Unavailable PASTORJACQUI MOONEY Attending Unavailable PASTORCORINA MOONEYA Admitting Unavailable Mariza Wright Primary Care Physician Mariza Wright Referring Unavailable Joselo STARKS Attending Unavailable Joselo STARKS Attending Unavailable Joselo STARKS Attending Unavailable EYAL ALEGRIA Attending Unavailable TOMAS CLINTON I Attending Unavailable TOMAS CLINTON I Attending Unavailable ASHLEIGH ZEE Attending Unavailable FELIX WHITNEY Attending Unavailable Allergies Allergy Classification Reported Allergen(s) Allergy Type Date of Onset Reaction(s) Facility (2 sources) Benzoyl Peroxide; Translations: [BENZOYL PEROXIDE] Drug Allergy 07-22-20 15 [facility] Repository (1 source) Desonide Drug Allergy 04-05-20 13 [facility] (1 source) Sulfonamides (Antibiotic) Drug allergy (disorder) 04-05-20 13 [facility] (1 source) Misc-Other; Translations: [Misc-Other] Propensity to adverse reactions (disorder) 07-22-20 15 [facility] (3 sources) Sulfonamides (Antibiotic); Translations: [sulfa drugs] Drug allergy Discoloration of skin (finding) [facility] (1 source) Adhesive agent; Translations: [ADHESIVE] Propensity to adverse reactions to drug (disorder) 09-21-20 14 [facility] Repository (1 source) Sulfamethoxazole / Trimethoprim; Translations: [SULFAMETHOXAZOLE-T RIMETHOPRIM] Drug Allergy 02-02-20 23 [facility] Repository (1 source) Sulfonamides (Antibiotic); Translations: [SULFA (SULFONAMIDE ANTIBIOTICS)] Propensity to adverse reactions to drug (disorder) 09-21-20 14 [facility] Repository (1 source) ADHESIVE TAPE-SILICONES; Translations: [ADHESIVE TAPE-SILICONES] Propensity to adverse reactions to drug (disorder) 10-07-19 22 [facility] Repository Medications Current Medications Medication Drug [...] 09-30-2022 Episodic Other aftercare (6 sources) Other fdc (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; Translations: [OTH VIBRATION ANALYST CURRENT DRUG THERAPY] Onset: 08-25-2022 Episodic Other [...] Interpretation Reference Range Facility Follow-Upon 08-19-2023 Follow-Up [id number] Yamileth Small 1970 F Date Provider Department [facility] 08/19/2023 TOMAS ROBERTO I [facility] No family history on file Level of Service:63134 [place] OFFICE/OUTPATIENT ESTABLISHED MOD MDM 30-39 MIN Reason for Visit and Comments: Follow-up [542412] - Follow up [facility] Orders Onlyon 08-12-2023 Orders Only [id number] Yamileth Small 1970 F Date Provider Department [facility] 08/12/2023 [id number], HISTORICAL [facility] No family history on file [facility] 36on 08-10-2023 36 Left detailed messag e that labs were placed. [facility] Orders Onlyon 08-10-2023 Orders Only [id number] Yamileth Small 1970 F Date Provider Department [facility] 08/10/2023 TOMAS ROBERTO I [facility] No family history on file [facility] 36on 08-05-2023 36 Patient has an apt o n and is wondering if there are any labs she needs to do prior to her visit. Please advise. Thanks! [facility] 36 Patient called [facility] Follow-Upon 06-03-2023 Follow-Up [id number] Yamileth Small 1970 F Date Provider Department [facility] 06/03/2023 TOMAS ROBERTO I [facility] No family history on file Level of Service:49812 [place] OFFICE/OUTPATIENT ESTABLISHED MOD MDM 30-39 MIN (GC) Reason for Visit and Comments: Follow-up [450398] - Follow up [facility] 36on 04-08-2023 36 Last visit pt instru cted to finish current supply and then stop [facility] Ambulatory Visit Summaryon 0 04-07-2023 Ambulatory [...] erythematosus Varicose veins of legs Normal [facility] General Surgery Office/Clini c Noteon 04-07-2023 General [...] SARS-CoV-2 (COVID-19) mRNA-1273 vaccine 08/07/2022 Recorded SARSCoV2 mRNA(vsfxsafwx-btbo-rcbjgw) vac 01/01/2022 Recorded SARS-CoV-2 (COVID-19) mRNA-1273 vaccine 06/18/2021 Recorded 2023-02-26: TPV50 SARS-CoV-2 (COVID-19) mRNA-1273 vaccine 10/30/2020 Recorded SARS-CoV-2 (COVID-19) mRNA-1273 vaccine 10/02/2020 Recorded [facility] Comment on above: Result Comment: Elec tronically Signed By: RAUDEL PUENTES, Joselo Barrera\Date and Time Signed: 04/07/23 14:01 EDT Reminderson 04-02-2023 Reminders - From: Cristal Gordon LPN To: GSN - Clinical; Sent: 04/02/2023 11:03:11 EDT Show up: 02/21/2033 07:00:00 EDT Subject: colonoscopy recall Due Date/Time: 03/24/2033 07:00:00 EDT Reminder/Recall Patient due for screening colonoscopy 03/24/2033. [facility] Pathology Noteon 03-29-2023 Pathology Note [id number]#1.00CD:127 [facility] Outside Colonoscopyon 2022 Outside Colonoscopy [id number]#1.00CD:127 [facility] Pre-Certification Formon Pre-Certification Form [id number]#1.00CD:127 [facility] Consent for Procedure/Surger yon 03-05-2023 Consent for Procedure/Surgery [id number]#1.00CD:127 [facility] Facesheeton 03-04-2023 Facesheet [id number]#1.00CD:127 Normal [facility] Ambulatory Visit Summaryon 0 03-03-2023 Ambulatory Visit Summary TEETEE SMALL :1970 Visit Date:03/03/2023 Ambulatory Visit Instructions Your Care Team Attending Physician - RAUDEL PUENTES, Joselo Llanes Primary Care Physician - Kyle PUENTES, Mariza Referring Physician - Mariza Wright MD This [...] lupus erythematosus Varicose veins of legs Normal [facility] RAD - CT Reporton 03-03-2023 RAD - CT Report [id number]#1.00CD:127 Normal [facility] Orders Onlyon 03-02-2023 Orders Only [id number] Yamileth Small 1970 F Date Provider Department Center 03/02/2023 [id number]-EYAL ALEGRIA [facility] RHEUM UTCF No family history on file Normal [facility] Physician Referralon 023 Physician Referral [id number]#1.00CD:127 Normal [facility] CT ABD/PELV W CONon 02-13-20 23 [...] by: IDA SOTO Date: 2023-02-12 09:54 Normal [facility] Orders Onlyon 02-08-2023 Orders Only [id number] Yamileth Small 1970 F Date Provider Department Center 02/08/2023 [id number], HISTORICAL [facility] No family history on file Normal [facility] QUANTIFERON TB GOLD PLUSon 0 02-07-2023 QuantiFERON Criteria Comment Normal [facility] Comment on above: Result Comment: [...] test. Performed By: #### Q NTTB #### [facility] [address] [place] [address] Dr. Jazmyn Saavedra QuantiFERON Incubation Incubation performed. Normal The [facility] Comment on above: Performed By: #### Q NTTB #### [facility] [address] [place] [address] Dr. Jazmyn Saavedra QuantiFERON Mitogen Value 6.87 IU/mL Normal [facility] Comment on above: Performed By: #### Q NTTB #### [facility] [address] [place] [address] Dr. Jazmyn Saavedra QuantiFERON Nil Value 0.00 IU/mL [facility] Comment on above: Performed By: #### Q NTTB #### [facility] [address] [place] [address] Dr. Jazmyn Saavedra QuantiFERON TB1 Ag Value 0.00 IU/mL Normal [facility] Comment on above: Performed By: #### Q NTTB #### [facility] [address] [place] [address] Dr. Jazmyn Saavedra QuantiFERON TB2 Ag Value 0.00 IU/mL Normal [facility] Comment on above: Performed By: #### Q NTTB #### [facility] [address] [place] [address] Dr. Jazmyn Saavedra QuantiFERON-TB Gold Plus Negative Normal Negative [facility] Comment on above: Result Comment: No r esponse to M tuberculosis antigens detected. Infection with M tuberculosis is unlikely, but high risk individuals should be considered for additional testing (ATS/IDSA/CDC Clinical Practice Guidelines, 2017). The reference range is an Antigen minus Nil result of <0.35 IU/mL. Chemiluminescence immunoassay methodology Performed By: #### Q NTTB #### [facility] [address] [place] [address] Dr. Jazmyn Saavedra HEP B COREon 02-06-2023 Hep B Core Ab, Tot Negative Normal Negative [facility] Comment on above: Performed By: #### S EDR #### [facility] [address] [place] [address] Dr. Jazmyn Saavedra HEP B SURFACE ANTIGEN SCREEN on 02-06-2023 HBsAg Screen Negative Normal Negative [facility] Comment on above: Performed By: #### H BSANS #### [facility] [address] [place] [address] Dr. Jazmyn Saavedra CBC AUTO DIFFon 02-05-2023 BASO # 0.0 103/ul Normal 0.0-0.1 [facility] Comment on above: Performed By: #### C BC #### [facility] [address] [place] [address] Dr. Jazmyn Saavedra Basophils/100 WBC (Bld) 0.5 % Normal 0.2-2.0 [facility] Comment on above: Performed By: #### C BC #### [facility] [address] [place] [address] Dr. Jazmyn Saavedra EO # 0.0 103/ul Normal 0.0-0.7 [facility] Comment on above: Performed By: #### C BC #### [facility] [address] [place] [address] Dr. Jazmyn Saavedra Eosinophils/100 WBC (Bld) 0.8 % Critically low 0.9-7.0 [facility] Comment on above: Performed By: #### C BC #### [facility] [address] [place] [address] Dr. Jazmyn Saavedra Erythrocyte distribution width (RBC) [Ratio] 13.2 % Normal 11.0-15.0 [facility] Comment on above: Performed By: #### C BC #### [facility] [address] [place] [address] Dr. Jazmyn Saavedra Hematocrit (Bld) [Volume fraction] 41.1 % Normal 36.0-48.0 [facility] Comment on above: Performed By: #### C BC #### [facility] [address] [place] [address] Dr. Jazmyn Saavedra Hemoglobin (Bld) [Mass/Vol] 13.4 g/dL Normal 12.0-16.0 [facility] Comment on above: Performed By: #### C BC #### [facility] [address] [place] [address] Dr. Jazmyn Saavedra IG # 0.01 10e3/ul Normal 0.00-0.03 [facility] Comment on above: Performed By: #### C BC #### [facility] [address] [place] [address] Dr. Jazmyn Saavedra IG % 0.3 % Normal 0.0-0.5 [facility] Comment on above: Performed By: #### C BC #### [facility] [address] [place] [address] Dr. Jazmyn Saavedra LYMPH # 1.2 103/ul Normal 1.2-3.8 [facility] Comment on above: Performed By: #### C BC #### [facility] [address] [place] [address] Dr. Jazmyn Saavedra Lymphocytes/100 WBC (Bld) 31.9 % Normal 20.5-60.0 [facility] Comment on above: Performed By: #### C BC #### [facility] [address] [place] [address] Dr. Jazmyn Saavedra MANUAL DIFF REQ NO Normal [facility] Comment on above: Performed By: #### C BC #### [facility] [address] [place] [address] Dr. Jazmyn Saavedra MCH (RBC) [Entitic mass] 30.6 pg Normal 26.7-34.0 [facility] Comment on above: Performed By: #### C BC #### [facility] [address] [place] [address] Dr. Jazmyn Saavedra MCHC (RBC) [Mass/Vol] 32.6 g/dL Normal 29.9-35.2 [facility] Comment on above: Performed By: #### C BC #### [facility] [address] [place] [address] Dr. Jazmyn Saavedra MCV (RBC) [Entitic vol] 93.8 fL Normal 81.0-99.0 [facility] Comment on above: Performed By: #### C BC #### [facility] [address] [place] [address] Dr. Jazmyn Saavedra MONO # 0.5 103/ul Normal 0.3-0.8 [facility] Comment on above: Performed By: #### C BC #### [facility] [address] [place] [address] Dr. Jazmyn Saavedra Monocytes/100 WBC (Bld) 14.1 % Critically high 1.7-12.0 [facility] Comment on above: Performed By: #### C BC #### [facility] [address] [place] [address] Dr. Jazmyn Saavedra NEUT # 1.9 103/ul Normal 1.4-6.5 [facility] Comment on above: Performed By: #### C BC #### [facility] [address] [place] [address] Dr. Jazmyn Saavedra Neutrophils/100 WBC (Bld) 52.4 % Normal 43.0-75.0 [facility] Comment on above: Performed By: #### C BC #### [facility] [address] [address] [address] Jazmyn Saavedra Platelet mean volume (Bld) [Entitic vol] 9.4 fL Critically low 9.5-13.5 [facility] Comment on above: Performed By: #### C BC #### [facility] [address] [address] [address] Jazmyn Saavedra PLT 342 103/ul Normal 150-450 [facility] Comment on above: Performed By: #### C BC #### [facility] [address] [address] [address] Jazmyn Saavedra RBC 4.38 106/ul Normal 4.20-5.40 [facility] Comment on above: Performed By: #### C BC #### [facility] [address] [place] [address] Dr. Jazmyn Saavedra WBC 3.7 103/ul Critically low 4.0-11.0 [facility] Comment on above: Performed By: #### C BC #### [facility] [address] [place] [address] Dr. Jazmyn Saavedra FREE THYROXINE INDEX T7on FTI 3.20 Normal 1.30-4.50 [facility] Comment on above: Performed By: #### S EDR #### [facility] [address] [place] [address] Dr. Jazmyn Saavedra T3U 36.0 % Normal 30.0-39.0 [facility] Comment on above: Performed By: #### S EDR #### [facility] [address] [address] [address] Jazmyn Saavedra T4 [Mass/Vol] 8.90 ug/dL Normal 4.80-13.90 [facility] Comment on above: Performed By: #### S EDR #### [facility] [address] [place] [address] Dr. Jazmyn Saavedra GLYCOHEMOGLOBIN A1Con 2022 ADA RECOMMENDATION SEE BELOW Normal [facility] Comment on above: Result Comment: ADA RECOMMENDED LIMIT 4.0 - 6.0 ADA THERAPEUTIC TARGET < 7.0 ACTION SUGGESTED > 7.0 Performed By: #### S EDR #### [facility] [address] [address] [address] Jazmyn Saavedra Glucose [Mass/Vol] 123 mg/dL Normal [facility] Comment on above: Performed By: #### S EDR #### [facility] [address] [address] [address] Jazmyn Saavedra HbA1c (Bld) [Mass fraction] 5.9 % Normal 4.5-6.2 [facility] Comment on above: Performed By: #### S EDR #### [facility] [address] [place] [address] Dr. Jazmyn Saavedra LIPID PROFILEon 02-05-2023 CHOL-HDL RATIO NORM SEE BELOW Normal [facility] Comment on above: Result Comment: 3.3 - 4.4 LOW RISK 4.4 - 7.1 AVERAGE RISK 7.1 - 11.0 MODERATE RISK >11.0 HIGH RISK Performed By: #### S EDR #### [facility] [address] [address] [address] Jazmyn Saavedra Cholesterol [Mass/Vol] 256 mg/dL Critically high <=200 [facility] Comment on above: Performed By: #### S EDR #### [facility] [address] [place] [address] Dr. Jazmyn Saavedra Cholesterol in HDL [Mass/Vol] 108 mg/dL Critically high 40-60 [facility] Comment on above: Performed By: #### S EDR #### [facility] [address] [address] [address] Jazmyn Saavedra Cholesterol in LDL [Mass/Vol] 139.4 mg/dL Normal [facility] Comment on above: Performed By: #### S EDR #### [facility] [address] [address] [address] Jazmyn Saavedra Cholesterol.total/ Cholesterol in HDL [Mass ratio] 2.4 {ratio} Normal [facility] Comment on above: Performed By: #### S EDR #### [facility] [address] [address] [address] Jazmyn Saavedra HDL NORMAL > or = 60 mg/dl - LO W CARDIOVASCULAR RISK <40 mg/dl - HIGH CARDIOVASCULAR RISK Normal [facility] Comment on above: Performed By: #### S EDR #### [facility] [address] [address] [address] Jazmyn Saavedra LDL CALC NORMAL SEE BELOW Normal [facility] Comment on above: Result Comment: <100 mg/dl OPTIMAL 100 - 129 mg/dl NEAR OR ABOVE OPTIMAL 130 - 159 mg/dl BORDERLINE HIGH 160 - 189 mg/dl HIGH >190 mg/dl VERY HIGH Performed By: #### S EDR #### [facility] [address] [address] [address] Jazmyn Saavedra Triglyceride [Mass/Vol] 43 mg/dL Normal <=150 [facility] Comment on above: Performed By: #### S EDR #### [facility] [address] [address] [address] Jazmyn Saavedra VLDL CALC 8.6 mg/dL Normal [facility] Comment on above: Performed By: #### S EDR #### [facility] [address] [address] [address] Jazmyn Saavedra Orders Onlyon 02-05-2023 Orders Only [id number] Yamileth Small 1970 F Date Provider Department Center 02/05/2023 [id number], HISTORICAL C PHYS MED [facility] No family history on file Normal [facility] PROF 14(COMP METB)on 023 Albumin [Mass/Vol] 4.0 g/dL Normal 3.4-5.0 [facility] Comment on above: Performed By: #### T 7, CMP, LIPID, TSH #### [facility] [address] [address] [address] Jazmyn Saavedra Albumin/Globulin [Mass ratio] 0.9 {ratio} Normal [facility] Comment on above: Performed By: #### T 7, CMP, LIPID, TSH #### [facility] [address] [address] [address] Jazmyn Saavedra ALP [Catalytic activity/Vol] 57 U/L Normal 46-116 [facility] Comment on above: Performed By: #### T 7, CMP, LIPID, TSH #### [facility] [address] [address] [address] Jazmyn Saavedra ALT [Catalytic activity/Vol] 23 U/L Normal 14-59 [facility] Comment on above: Performed By: #### T 7, CMP, LIPID, TSH #### [facility] [address] [address] [address] Jazmyn Saavedra Anion gap [Moles/Vol] 13.8 mmol/L Normal [facility] Comment on above: Performed By: #### T 7, CMP, LIPID, TSH #### [facility] [address] [place] [address] Dr. Jazmyn Saavedra AST [Catalytic activity/Vol] 23 U/L Normal 15-37 [facility] Comment on above: Performed By: #### T 7, CMP, LIPID, TSH #### [facility] [address] [place] [address] Dr. Jazmyn Saavedra Bilirubin [Mass/Vol] 0.6 mg/dL Normal 0.2-1.0 [facility] Comment on above: Performed By: #### T 7, CMP, LIPID, TSH #### [facility] [address] [place] [address] Dr. Jazmyn Saavedra Calcium [Mass/Vol] 9.6 mg/dL Normal 8.5-10.1 [facility] Comment on above: Performed By: #### T 7, CMP, LIPID, TSH #### [facility] [address] [place] [address] Dr. Jazmyn Saavedra Chloride [Moles/Vol] 100 mmol/L Normal 98-107 [facility] Comment on above: Performed By: #### T 7, CMP, LIPID, TSH #### [facility] [address] [address] [address] Jazmyn Saavedra CO2 [Moles/Vol] 29.9 mmol/L Normal 21.0-32.0 [facility] Comment on above: Performed By: #### T 7, CMP, LIPID, TSH #### [facility] [address] [address] [address] Jazmyn Saavedra Creatinine [Mass/Vol] 0.89 mg/dL Normal 0.55-1.02 [facility] Comment on above: Performed By: #### T 7, CMP, LIPID, TSH #### [facility] [address] [address] [address] Jazmyn Saavedra EGFR-AF INDIAN >60 Normal >=60 [facility] Comment on above: Performed By: #### T 7, CMP, LIPID, TSH #### [facility] [address] [address] [address] Jazmyn Saavedra EGFR-NON AF INDIAN >60 Normal >=60 [facility] Comment on above: Performed By: #### T 7, CMP, LIPID, TSH #### [facility] [address] [address] [address] Jazmyn Saavedra Globulin (S) [Mass/Vol] 4.4 g/dL Normal [facility] Comment on above: Performed By: #### T 7, CMP, LIPID, TSH #### [facility] [address] [address] [address] Jazmyn Saavedra Glucose [Mass/Vol] 89 mg/dL Normal 74-106 [facility] Comment on above: Performed By: #### T 7, CMP, LIPID, TSH #### [facility] [address] [address] [address] Jazmyn Saavedra Potassium [Moles/Vol] 3.7 mmol/L Normal 3.5-5.1 [facility] Comment on above: Performed By: #### T 7, CMP, LIPID, TSH #### [facility] [address] [address] [address] Jazmyn Saavedra Protein [Mass/Vol] 8.4 g/dL Critically high 6.4-8.2 [facility] Comment on above: Performed By: #### T 7, CMP, LIPID, TSH #### [facility] [address] [address] [address] Jazmyn Saavedra Sodium [Moles/Vol] 140 mmol/L Normal 136-145 [facility] Comment on above: Performed By: #### T 7, CMP, LIPID, TSH #### [facility] [address] [address] [address] Jazmyn Saavedra Urea nitrogen [Mass/Vol] 17.0 mg/dL Normal 7.0-18.0 [facility] Comment on above: Performed By: #### T 7, CMP, LIPID, TSH #### [facility] [address] [address] [address] Jazmyn Saavedra Urea nitrogen/Creatinin e [Mass ratio] 19.1 mg/mg Normal [facility] Comment on above: Performed By: #### T 7, CMP, LIPID, TSH #### [facility] [address] [place] [address] Dr. Jazmyn Saavedra TSHon 02-05-2023 TSH 0.984 uIU/mL Normal 0.358-3.740 [facility] Comment on above: Performed By: #### S EDR #### [facility] [address] [place] [address] Dr. Jazmyn Saavedra Documentationon 01-29-2023 Documentation [id number] Yamileth Small 1970 Date Provider Department Center 01/29/2023 EDUARD [facility]LEX[facility]RE [facility] RHEUM Yamil Heal No family history on file Reason for Visit and Comments: Specialty Pharmacy Note: [facility] Prescription [Other] [facility] Follow-Upon 01-28-2023 Follow-Up [id number] Yamileth Small 1970 Date Provider Department Center 01/28/2023 Mary Alice-EYAL ALEGRIA [facility] RHEUM [facility] No family history on file Level of Service:33059 NC OFFICE/OUTPATIENT ESTABLISHED MOD MDM 30-39 MIN (GC) [facility] PAP ACOG PANEL 2: 30 to 65on 10-07-2022 . . Normal [facility] Comment on above: Result Comment: Perf ormed at: [facility] Performed By: #### S EDR #### [facility] [address] [address] [address] Jazmyn Saavedra Age Gdln ACOG Testing 30-65 Normal [facility] Comment on above: Performed By: #### S EDR #### [facility] [address] [place] [address] Dr. Jazmyn Saavedra DIAGNOSIS: Comment Normal [facility] Comment on above: Result Comment: NEGA TIVE FOR INTRAEPITHELIAL LESION OR MALIGNANCY. Performed at: [facility] Performed By: #### S EDR #### [facility] [address] [place] [address] Dr. Jazmyn Saavedra HPV Aptima Negative Normal Negative [facility] Comment on above: Result Comment: This nucleic acid amplification test detects fourteen high-risk HPV types (16,18,31,33,35,39,45,51,52,56,58,59,66,68) without differentiation. Performed at: =G Performed By: #### S EDR #### [facility] [address] [place] [address] Dr. Jazmyn Saavedra HPV Genotype Reflex Comment Normal [facility] Comment on above: Result Comment: Crit eria not met, HPV Genotype not performed. Performed at: [facility] Performed By: #### S EDR #### [facility] [address] [place] [address] Dr. Jazmyn Saavedra Methodology: Comment Normal [facility] Comment on above: Result Comment: This liquid based ThinPrep(R) pap test was screened with the use of an image guided system. Performed at: [facility] Performed By: #### S EDR #### [facility] [address] [place] [address] Dr. Jazmyn Saavedra Note: Comment Normal [facility] Comment on above: Result Comment: The [...] WB Performed By: #### S EDR #### [facility] [address] [place] [address] Dr. Jazmyn Saavedra Performed by: Comment Normal [facility] Comment on above: Result Comment: Daryl Calhoun, Straightening Press Operator Helper (ASCP) Performed at: [facility] Performed By: #### S EDR #### [facility] [address] [address] [address] Jazmyn Saavedra Specimen adequacy: Comment Normal [facility] Comment on above: Result Comment: Sati sfactory for evaluation. Endocervical component may not be distinguished in cases of atrophy. Performed at: [facility] Performed By: #### S EDR #### [facility] [address], [place] [address] Dr. Jazmyn Saavedra Orders Onlyon 08-31-2022 Orders Only [id number] Yamileth Small 1970 F Date Provider Department Center 08/31/2022 [id number], HISTORICAL [facility] PHYS MED [facility] No family history on file Normal [facility] XR DEXA BONE DENSITYon 08-28 XR [...] by: GILBERT GEORGE Date: 2022-08-28 08:47 Normal [facility] CBC AUTO DIFFon 08-25-2022 BASO # 0.0 103/ul Normal 0.0-0.1 [facility] Comment on above: Performed By: #### S EDR #### [facility] [address] [address] [address] Jazmyn Saavedra Basophils/100 WBC (Bld) 0.5 % Normal 0.2-2.0 [facility] Comment on above: Performed By: #### S EDR #### [facility] [address] [place] [address] Dr. Jazmyn Saavedra EO # 0.1 103/ul Normal 0.0-0.7 [facility] Comment on above: Performed By: #### S EDR #### [facility] [address] [place] [address] Dr. Jazmyn Saavedra Eosinophils/100 WBC (Bld) 1.2 % Normal 0.9-7.0 [facility] Comment on above: Performed By: #### S EDR #### [facility] [address] [place] [address] Dr. Jazmyn Saavedra Erythrocyte distribution width (RBC) [Ratio] 13.2 % Normal 11.0-15.0 [facility] Comment on above: Performed By: #### S EDR #### [facility] [address] [place] [address] Dr. Jazmyn Saavedra Hematocrit (Bld) [Volume fraction] 38.4 % Normal 36.0-48.0 [facility] Comment on above: Performed By: #### S EDR #### [facility] [address] [place] [address] Dr. Jazmyn Saavedra Hemoglobin (Bld) [Mass/Vol] 12.6 g/dL Normal 12.0-16.0 [facility] Comment on above: Performed By: #### S EDR #### [facility] [address] [place] [address] Dr. Jazmyn Saavedra IG # 0.01 10e3/ul Normal 0.00-0.03 [facility] Comment on above: Performed By: #### S EDR #### [facility] [address] [place] [address] Dr. Jazmyn Saavedra IG % 0.2 % Normal 0.0-0.5 [facility] Comment on above: Performed By: #### S EDR #### [facility] [address] [place] [address] Dr. Jazmyn Saavedra LYMPH # 1.7 103/ul Normal 1.2-3.8 [facility] Comment on above: Performed By: #### S EDR #### [facility] [address] [place] [address] Dr. Jazmyn Saavedra Lymphocytes/100 WBC (Bld) 40.8 % Normal 20.5-60.0 [facility] Comment on above: Performed By: #### S EDR #### [facility] [address] [place] [address] Dr. Jazmyn Saavedra MANUAL DIFF REQ NO Normal [facility] Comment on above: Performed By: #### S EDR #### [facility] [address] [place] [address] Dr. Jazmyn Saavedra MCH (RBC) [Entitic mass] 31.0 pg Normal 26.7-34.0 [facility] Comment on above: Performed By: #### S EDR #### [facility] [address] [place] [address] Dr. Jazmyn Saavedra MCHC (RBC) [Mass/Vol] 32.8 g/dL Normal 29.9-35.2 [facility] Comment on above: Performed By: #### S EDR #### [facility] [address] [place] [address] Dr. Jazmyn Saavedra MCV (RBC) [Entitic vol] 94.3 fL Normal 81.0-99.0 [facility] Comment on above: Performed By: #### S EDR #### [facility] [address] [place] [address] Dr. Jazmyn Saavedra MONO # 0.5 103/ul Normal 0.3-0.8 [facility] Comment on above: Performed By: #### S EDR #### [facility] [address] [place] [address] Dr. Jazmyn Saavedra Monocytes/100 WBC (Bld) 11.9 % Normal 1.7-12.0 [facility] Comment on above: Performed By: #### S EDR #### [facility] [address] [place] [address] Dr. Jazmyn Saavedra NEUT # 1.9 103/ul Normal 1.4-6.5 [facility] Comment on above: Performed By: #### S EDR #### [facility] [address] [place] [address] Dr. Jazmyn Saavedra Neutrophils/100 WBC (Bld) 45.4 % Normal 43.0-75.0 [facility] Comment on above: Performed By: #### S EDR #### [facility] [address] [place] [address] Dr. Jazmyn Saavedra Platelet mean volume (Bld) [Entitic vol] 9.3 fL Critically low 9.5-13.5 [facility] Comment on above: Performed By: #### S EDR #### [facility] [address] [place] [address] Dr. Jazmyn Saavedra PLT 309 103/ul Normal 150-450 [facility] Comment on above: Performed By: #### S EDR #### [facility] [address] [place] [address] Dr. Jazmyn Saavedra RBC 4.07 106/ul Critically low 4.20-5.40 [facility] Comment on above: Performed By: #### S EDR #### [facility] [address] [place] [address] Dr. Jazmyn Saavedra WBC 4.2 103/ul Normal 4.0-11.0 [facility] Comment on above: Performed By: #### S EDR #### [facility] [address] [place] [address] Dr. Jazmyn Saavedra CRPon 08-25-2022 CRP [Mass/Vol] mg/L Normal <=1.0 [facility] Comment on above: Performed By: #### C RP, CMP, LIPID #### [facility] [address] [place] [address] Dr. Jazmyn Saavedra LIPID PROFILEon 08-25-2022 CHOL-HDL RATIO NORM SEE BELOW Normal [facility] Comment on above: Result Comment: 3.3 - 4.4 LOW RISK 4.4 - 7.1 AVERAGE RISK 7.1 - 11.0 MODERATE RISK >11.0 HIGH RISK Performed By: #### C RP, CMP, LIPID #### [facility] [address] [address] [address] Jazmyn Saavedra Cholesterol [Mass/Vol] 251 mg/dL Critically high <=200 [facility] Comment on above: Performed By: #### C RP, CMP, LIPID #### [facility] [address] [address] [address] Jazmyn Saavedra Cholesterol in HDL [Mass/Vol] 102 mg/dL Critically high 40-60 [facility] Comment on above: Performed By: #### C RP, CMP, LIPID #### [facility] [address] [address] [address] Jazmyn Saavedra Cholesterol in LDL [Mass/Vol] 135.0 mg/dL Normal [facility] Comment on above: Performed By: #### C RP, CMP, LIPID #### [facility] [address] [address] [address] Jazmyn Saavedra Cholesterol.total/ Cholesterol in HDL [Mass ratio] 2.5 {ratio} Normal [facility] Comment on above: Performed By: #### C RP, CMP, LIPID #### [facility] [address] [address] [address] Jazmyn Saavedra HDL NORMAL > or = 60 mg/dl - LO W CARDIOVASCULAR RISK <40 mg/dl - HIGH CARDIOVASCULAR RISK Normal [facility] Comment on above: Performed By: #### C RP, CMP, LIPID #### [facility] [address] [address] [address] Jazmyn Saavedra LDL CALC NORMAL SEE BELOW Normal [facility] Comment on above: Result Comment: <100 mg/dl OPTIMAL 100 - 129 mg/dl NEAR OR ABOVE OPTIMAL 130 - 159 mg/dl BORDERLINE HIGH 160 - 189 mg/dl HIGH >190 mg/dl VERY HIGH Performed By: #### C RP, CMP, LIPID #### [facility] [address] [address] [address] Jazmyn Saavedra Triglyceride [Mass/Vol] 70 mg/dL Normal <=150 [facility] Comment on above: Performed By: #### C RP, CMP, LIPID #### [facility] [address] [address] [address] Jazmyn Saavedra VLDL CALC 14.0 mg/dL Normal [facility] Comment on above: Performed By: #### C RP, CMP, LIPID #### [facility] [address] [place] [address] Dr. Jazmyn Saavedra Orders Onlyon 08-25-2022 Orders Only [id number] Yamileth Small 1970 F Date Provider Department [place] 08/25/2022 [id number], HISTORICAL [facility]THO [facility] No family history on file Normal [facility] PROF 14(COMP METB)on 022 Albumin [Mass/Vol] 3.9 g/dL Normal 3.4-5.0 [facility] Comment on above: Performed By: #### C RP, CMP, LIPID #### [facility] [address] [place] [address] Dr. Jazmyn Saavedra Albumin/Globulin [Mass ratio] 1.0 {ratio} Normal [facility] Comment on above: Performed By: #### C RP, CMP, LIPID #### [facility] [address] [place] [address] Dr. Jazmyn Saavedra ALP [Catalytic activity/Vol] 49 U/L Normal 46-116 [facility] Comment on above: Performed By: #### C RP, CMP, LIPID #### [facility] [address] [place] [address] Dr. Jazmyn Saavedra ALT [Catalytic activity/Vol] 17 U/L Normal 14-59 [facility] Comment on above: Performed By: #### C RP, CMP, LIPID #### [facility] [address] [place] [address] Dr. Jazmyn Saavedra Anion gap [Moles/Vol] 10.1 mmol/L Normal [facility] Comment on above: Performed By: #### C RP, CMP, LIPID #### [facility] [address] [place] [address] Dr. Jazmyn Saavedra AST [Catalytic activity/Vol] 19 U/L Normal 15-37 [facility] Comment on above: Performed By: #### C RP, CMP, LIPID #### [facility] [address] [address] [address] Jazmyn Saavedra Bilirubin [Mass/Vol] 0.5 mg/dL Normal 0.2-1.0 [facility] Comment on above: Performed By: #### C RP, CMP, LIPID #### [facility] [address] [address] [address] Jazmyn Saavedra Calcium [Mass/Vol] 9.3 mg/dL Normal 8.5-10.1 [facility] Comment on above: Performed By: #### C RP, CMP, LIPID #### [facility] [address] [place] [address] Dr. Jazmyn Saavedra Chloride [Moles/Vol] 103 mmol/L Normal 98-107 [facility] Comment on above: Performed By: #### C RP, CMP, LIPID #### [facility] [address] [place] [address] Dr. Jazmyn Saavedra CO2 [Moles/Vol] 30.1 mmol/L Normal 21.0-32.0 [facility] Comment on above: Performed By: #### C RP, CMP, LIPID #### [facility] [address] [place] [address] Dr. Jazmyn Saavedra Creatinine [Mass/Vol] 0.80 mg/dL Normal 0.55-1.02 [facility] Comment on above: Performed By: #### C RP, CMP, LIPID #### [facility] [address] [place] [address] Dr. Jazmyn Saavedra EGFR-AF INDIAN >60 Normal >=60 [facility] Comment on above: Performed By: #### C RP, CMP, LIPID #### [facility] [address] [place] [address] Dr. Jazmyn Saavedra EGFR-NON AF INDIAN >60 Normal >=60 [facility] Comment on above: Performed By: #### C RP, CMP, LIPID #### [facility] [address] [place] [address] Dr. Jazmyn Saavedra Globulin (S) [Mass/Vol] 4.1 g/dL Normal [facility] Comment on above: Performed By: #### C RP, CMP, LIPID #### [facility] [address] [address] [address] Jazmyn Saavedra Glucose [Mass/Vol] 92 mg/dL Normal 74-106 [facility] Comment on above: Performed By: #### C RP, CMP, LIPID #### [facility] [address] [address] [address] Jazmyn Saavedra Potassium [Moles/Vol] 4.2 mmol/L Normal 3.5-5.1 [facility] Comment on above: Performed By: #### C RP, CMP, LIPID #### [facility] [address] [address] [address] Jazmyn Saavedra Protein [Mass/Vol] 8.0 g/dL Normal 6.4-8.2 [facility] Comment on above: Performed By: #### C RP, CMP, LIPID #### [facility] [address] [address] [address] Jazmyn Saavedra Sodium [Moles/Vol] 139 mmol/L Normal 136-[address] [facility] Comment on above: Performed By: #### C RP, CMP, LIPID #### [facility] [address] [address] [address] Jazmyn Saavedra Urea nitrogen [Mass/Vol] 20.0 mg/dL Critically high 7.0-18.0 [facility] Comment on above: Performed By: #### C RP, CMP, LIPID #### [facility] [address] [address] [address] Jazmyn Saavedra Urea nitrogen/Creatinin e [Mass ratio] 25.0 mg/mg Normal [facility] Comment on above: Performed By: #### C RP, CMP, LIPID #### [facility] [address] [place] [address] Dr. Jazmyn Saavedra SED RATE [facility] 2021 SED RATE 47 mm/hr Critically high <=30 [facility] Comment on above: Performed By: #### S EDR #### [facility] [address] [place] [address] Dr. Jazmyn Saavedra ASYMPTOMATIC COVID-19 ANTIGE Non 08-15-2022 EUA Statement SEE BELOW Normal [facility] Comment on above: Result Comment: This [...] sooner. Performed By: #### S EDR #### [facility] [address] [place] [address] Dr. Jazmyn Saavedra SARS-CoV-2 (COVID-19) RNA NILES+probe Ql (Unsp spec) Positive Critically abnormal NEGATIVE [facility] Comment on above: Result Comment: SARS -CoV-2 antigen present; does not rule out coinfection with other pathogens. Performed By: #### S EDR #### [facility] [address] [place] [address] Dr. Jazmyn Saavedra Covid-19 PCR (CVDTB)on SARS-CoV-2 (COVID-19) RNA NILES+probe Ql (Unsp spec) Detected Critically abnormal NOT DETECTED [facility] Comment on above: Result Comment: This test is not yet approved or cleared by the [place] FDA. When there are no FDA-approved or cleared tests available, and other criteria are met, FDA can make tests available under an emergency access mechanism called an Emergency Use Authorization (EUA). The EUA for this test is supported by the [place] of Health and Human Service's declaration that [...] longer be used). Performed By: #### C VDTB #### [facility] [id number] Jazmyn BARLOW MULTI-CANCER PANELon 02-12-2021 RESULT Results to be mailed directly to physician's office by reference lab. Normal [facility] Comment on above: Result Comment: Test performed by [facility] [address] [place] [address] [phone] No result expected. For billing and tracking purposes only. Performed By: #### 3 [id number] #### [facility] [address] Vital Signs Date Time Vital Sign Value Performing Clinician Flor romano 03-03-2023 14:35-0400 Blood Pressure Location Joselo SATRKS [facility] 03-03-2023 14:35-0400 Diastolic blood pressure 68 mm[Hg] Joselo SCANLONL [facility] 03-03-2023 14:35-0400 Heart rate 68 /min Joselo NILL [facility] 03-03-2023 14:35-0400 Respiratory rate 16 /min Joselo SCANLONL [facility] 03-03-2023 14:35-0400 Systolic blood pressure 114 mm[Hg] Joselo SCANLONL [facility] Encounters Encounter Date Encounter Type Care Provider Facility Start: 09-29-2023 End: 09-29-2023 ambulatory FELIX WHITNEY Not Available Start: 08-19-2023 End: 08-19-2023 ambulatory TOMAS Solorio [facility] Start: 06-03-2023 End: 06-03-2023 ambulatory TOMAS Solorio [facility] Start: 04-07-2023 End: 04-08-2023 ambulatory Joselo STARKS Facility:[facility] Start: 04-07-2023 End: 04-07-2023 Patient encounter procedure Joselo STARKS General Surgery Nill/Said Arvind Start: 03-24-2023 End: 03-25-2023 ambulatory Joselo STARKS Facility:CD:[id number] Start: 03-03-2023 End: 03-04-2023 ambulatory Mariza Hoy Facility:[facility] Start: 03-03-2023 End: 03-03-2023 Patient encounter procedure Joselo STARKS General Surgery Nill/Said Arvind Start: 02-18-2023 ambulatory ASHLEIGH [facility] Start: 02-18-2023 ambulatory Mariza Hoy Facility:[facility] Start: 02-12-2023 Encounter for genera l adult medical examination without abnormal findings MARIZA SILVIAY [facility] Start: 02-12-2023 End: 02-13-2023 ambulatory MARIZA WRIGHT Facility:[facility] Start: 02-05-2023 End: 02-06-[address] DOCTOR KELLOGG Facility:[facility] Start: 02-05-2023 End: 02-06-2023 Encounter for general adult medical examination without abnormal findings MARIZA HOCleopatra Facility:[facility] Start: 02-04-2023 End: 02-05-[address] IDA SOTO Facility:[facility] Start: 01-28-2023 End: 01-28-2023 [facility] Start: 09-23-2022 End: 09-23-[address] RUTHANN [...] Esophagogastroduodenoscopy Joselo STARKS Start: 07-24-2015 Colonoscopy Joselo SCANLONL Start: 02-01-2007 Colonoscopy Joselo NILL Bilateral mastectomy Joselo SCANLONL Biopsy of breast Joselo Galeas section Joselo Galeas Excision of cervical intervertebral disc Joselo SCANLONL Excision of lymph node Tony flori STARKS Comment on above: left inguinal Excision of salivary gland M marco STARKS Comment on above: x2 Granuloma (morpholog ic abnormality) Joselo STARKS Comment on above: x 2 History of radiofreq uency ablation operation for arrhythmia Joselo STARKS Total abdominal hyst erectomy with bilateral salpingo-oophorectomy Joselo SCANLONL Immunizations Immunization Date Immunization Notes Care Provider Fa david 08-07-2022 SARS-CoV-2 (COVID-19 ) mRNA-1273 vaccine Joselo SCANLONL [facility] 01-01-2022 SARS-CoV-2 mRNA (ztbbethnbay-yufm-uieho se) vaccine Joselo SCANLONL [facility] 06-18-2021 SARS-CoV-2 (COVID-19 ) mRNA-1273 vaccine Joselo NILL [facility] Comment on above: Result Comment: 2022: [id number] 10-30-2020 SARS-CoV-2 (COVID-19 ) mRNA-1273 vaccine Joselo STARKS [facility] 10-02-2020 SARS-CoV-2 (COVID-19 ) mRNA-1273 vaccine Joselo STARKS [facility] Payers Date Payer Category Payer Unknown [id number] 2019 Unknown [id number] 1970 Unknown [id number] 2.16.84 [id number] 1970 Unknown [id number] 2.16.84 [id number] 1970 Unknown [id number] 2.16.84 [id number] 1970 Unknown [id number] 2.16.84 [id number] 1970 Unknown [id number] 2.16.84 0.1.357349.3.579.2.593 1970 Unknown [id number] 2.16.84 0.1.755255.3.579.2.593 1970 Unknown [id number] 2.16.84 0.1.337777.3.579.2.593 1970 Unknown [id number] 2.16.84 0.1.649111.3.579.2.593 1970 Unknown [id number] 2.16.84 0.1.499169.3.579.2.593 1970 Unknown [id number] 2.16.8 40.1.131175.3.579.2.727 1970 Unknown [id number] 2.16.8 40.1.760087.3.579.2.727 1970 Unknown [id number] 2.16.8 40.1.413196.3.579.2.727 1970 Unknown [id number] 2.16.840 .[id number] 1961 Self-pay [id number] Unknown [id number] 2.16.84 [id number] Social History Date Type Detail Facility Start: 03-03-2023 Tobacco smoking status Never s moked tobacco (finding) General [facility] Ar[facility] Tobacco smoking status Never Gener al Surgery [facility] Sex Assigned At Female [facility] Functional Status Date Assessment Result Facility 03-03-2023 Functional Status N/A General [facility] suzan [facility] Clinical Notes 01-28-2023 to 08-19-2023 Note Date [...] was seen with attending physician, Dr. Sun Josue [facility] Medical Student , MS3 There are no diagnoses linked to this encounter. No diagnosis found. No orders of the defined types were placed in this encounter. No results found for this or any previous visit (from the past 36 hour(s)). No follow-ups on file. [facility] 06-03-2023 Note Attestation signed by Tomas [...] past 36 hour(s)). No follow-ups on file. [facility] 03-03-2023 Note Chief Complaint consultation for [...] History of pericar (more content not included)... [facility] Comment on above: Result Comment: Elec tronically Signed By: RAUDEL PUENTES, Joselo Barrera\Date and Time Signed: 03/03/23 16:35 EDT 02-18-2023 Note Patient ID: Teetee Small is a 53 y.o. female. Primary oncologist: Dr Kat Hernandez Primary Care Provider: Mariza Wright MD Subjective Pt presents alone for annual follow up. 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 OncotypeDx score of 14-no systemic chemotherapy given. GENETIC TESTING, [facility] Multi-Cancer Panel: no pathogenic mutation identified. Diagnosis: 04/10/2013 Left breast biopsy - Invasive ductal CA, grade 1. DCIS, cribriform type. ER/NC + (>90%), HER-2/julio cesar-negative (ratio 1.2), T: 1c, N: 0, M: x, Oncotype DX score: 14 Treatment to date: Cancer surgery 05/17/2013 Left breast mastectomy with SLN biopsy - Invasive ductal CA, high grade, 1.1cm. 0/8 nodes positive. ER/NC + (4+), HER-2/julio cesar-negative (ratio 1.0). Margins [...] swelling, mass, skin change or tenderness. Comments: [employer] Tender offered, declined No signs chest wall recurrence. [...] present. Mental Statu (more content not included)... [facility] 02-04-2023 Note PROCEDURE: XR SACROI LIAC JOINT 3 VIEWS COMPARISON: None. HISTORY: Rheumatoid factor positive rheumatoid arthritis FINDINGS: SACRUM: No fracture, disruption of the sacral ala line, or cortical irregularity. COCCYX: No fracture or suspicious alignment. SOFT TISSUES: No widening of the sacroiliac joints. No radiopaque foreign body. OTHER: IMPRESSION: No significant abnormality Electronically authenticated by: IDA SOTO Date: 2023-02-04 18:18 [facility] 02-04-2023 Note PROCEDURE: XR HIP LT 2 3V WO PELVIS COMPARISON: None. HISTORY: Rheumatoid factor positive rheumatoid arthritis FINDINGS: BONES:No acute fracture or dislocation. No significant degenerative changes. Heterotopic ossification superior to the greater trochanter SOFT TISSUES:Negative. No visible soft tissue swelling. EFFUSION:None visible. OTHER: Negative. IMPRESSION: No evidence of erosive or inflammatory arthritis Electronically authenticated by: IDA SOTO Date: 2023-02-04 18:17 [facility] 02-04-2023 Note PROCEDURE: XR FOOT R T MIN 3 VIEWS COMPARISON: None. HISTORY: Rheumatoid factor positive rheumatoid arthritis FINDINGS: BONES:No acute fracture or dislocation. Mild enthesopathic spurring of the calcaneus at the Achilles insertion. SOFT TISSUES:Negative. No visible soft tissue swelling. EFFUSION:None visible. OTHER: Negative. IMPRESSION: Mild calcaneal Achilles enthesopathy Electronically authenticated by: IDA SOTO Date: 2023-02-04 18:16 [facility] 01-29-2023 Note TB negative from 02/05 PA submitted via [employer]. Aracely GrullonD, BCACP 02/26/23 2:43 PM [facility] [phone] [facility] 01-29-2023 Note LVM with pt to confi rm shipment from [facility]. F/U confirm shipment from [facility]. Goyo Winston, [facility] 03/26/2310:03 AM [facility] 01-29-2023 Note Called and spoke wit h the patient and she has not received medication yet, but the order has been placed from [facility]. We will F/U taco to make sure the medication was received. Melissa Arizmendi, Earth Science Laboratory Technician 03/15/23 3:49 PM [facility] 01-29-2023 Note Supervising Physicia n & [...] lab results around Feb 26 2023. Eduard Tai, AracelyD, BCACP, CSP 01/29/23 8:50 AM [facility] [phone] [facility] 01-29-2023 Note Called pt, she will contact [facility] soon to discuss filling. F/U check rx/shipment status next week Goyo Winston [facility] 231:12 PM [facility] 01-29-2023 Note Prior Authorization for [employer] has been approved 02/26/23-02/27/24. Case ID/Authorization Number:[id number] Must be filled at [facility], sending msg to MD for transfer. Calling pt to discuss filling at [facility]. LVM. F/U contact pt to discuss filling at [facility]. Goyo Winston [facility] 238:19 AM [facility] 01-29-2023 Note I called the patient to ensure that she has received his medication from [facility] and address any questions he may have, lvm. Kaleigh Rosas, [facility] 232:53 PM [facility] 01-29-2023 Note I called and spoke w ith the pt to confirm delivery and she has received medication with no follow up questions. Melissa Arizmendi, Earth Science Laboratory Technician 03/30/23 10:09 AM [facility] 01-28-2023 Note Attestation signed by Tomas [...] is currently no information documented [facility] the [facility]. Go to the Rheumatology activity and [facility]. 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 [facility] Evaluation + Plan note No data available for this section [facility] Discharge instructions No data available for this section [facility] note No data available for this section [facility] Summary Purpose Family History No Family History Records FoundNo Family History Records FoundNo Family History Records FoundNo Family History Records FoundNo Family History Records Found Advance Directives No Advanced Directives Records FoundNo Advanced Directives Records FoundNo Advanced Directives Records FoundNo Advanced Directives Records FoundNo Advanced Directives Records Found Additional Source Comments INFORMATION SOURCE (unrecogn ized section and content) DATE CREATED AUTHOR 03/16/2021 [facility] DATE CREATED AUTHOR AUTHOR'S ORGANIZ ATION 02/15/2023 [facility] DATE CREATED AUTHOR AUTHOR'S ORGANIZ ATION 04/08/2023 [facility] DATE CREATED AUTHOR AUTHOR'S ORGANIZ ATION 08/21/2023 [facility] DATE CREATED AUTHOR AUTHOR'S ORGANIZ ATION 10/01/2023 [facility] [place] EPIC Patient Care team informatio n (unrecognized section and content) Personnel Name: Mariza Wright MD Address: Address: [address] [place] [address] Personnel Name: Mariza Wright MD Address: Address: [address] [place] [address] FOR RECORDS PERTAINING TO PATIENTS WHO ARE [...] BE BASED ON THE PRIMARY CLINICAL RECORDS. [facility]. provides no warranty or guarantee of the accuracy or completeness of information in this document.
[2023-11-03 21:07] LABS: Age Gdln ACOG Testing Note (.); HPV Aptima Negative (Negative); IGP, Aptima HPV, rfx 16/18,45 Note (.)
== END 2023-10-28 19:40 | disposition home or self-care (01) ==
LOC: LAB 19:39
PROVIDERS: PCP Family Medicine; Visit Provider Physician Assistant
DX: R87.615 Unsatisfactory cytologic smear of cervix (principal)
CPT/HCPCS: 87624; G0145

== ENCOUNTER 2023-11-16 21:41 | Outpatient (REF) | payer BC, SELFPAY ==
--- OUTSIDE RECORDS SUMMARY | 2023-11-16 21:44 | XMS_ITS | CCD ---
Author Name Unknown Address [address] [place] [address] Organization [facility] Care Team Providers Care Order Packer Name Role Phone SILVIAYLIBBYMARIZA Consulting Unavailable HOY, [...] ZEE Attending Unavailable FELIX WHITNEY Attending Unavailable FELIX WHITNEY Attending Unavailable Allergies Allergy Classification Reported Allergen(s) Allergy Type Date of Onset Reaction(s) Facility (2 sources) Benzoyl Peroxide; Translations: [BENZOYL PEROXIDE] Drug Allergy 07-22-20 15 [facility] Repository (1 source) Desonide Drug Allergy 04-05-20 13 [facility] (1 source) Sulfonamides (Antibiotic) Drug allergy (disorder) 04-05-20 13 [facility] Rep[facility] (1 source) Misc-Other; Translations: [Misc-Other] Propensity to adverse reactions (disorder) 07-22-20 15 [facility] Repository (3 sources) Sulfonamides (Antibiotic); Translations: [sulfa drugs] Drug allergy Discoloration of skin (finding) General [facility] [place] (1 source) Adhesive agent; Translations: [ADHESIVE] Propensity to adverse reactions to drug (disorder) 09-21-20 14 [facility] Repository (1 source) Sulfamethoxazole / Trimethoprim; Translations: [SULFAMETHOXAZOLE-T RIMETHOPRIM] Drug Allergy 02-02-20 23 [facility] Repository (1 source) Sulfonamides (Antibiotic); Translations: [SULFA (SULFONAMIDE ANTIBIOTICS)] Propensity to adverse reactions to drug (disorder) 09-21-20 14 [facility] Repository (1 source) ADHESIVE TAPE-SILICONES; Translations: [ADHESIVE TAPE-SILICONES] Propensity to adverse reactions to drug (disorder) 10-07-19 22 [facility] Repository Medications Current Medications Medication Drug [...] 09-30-2022 Episodic Other aftercare (6 sources) 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; Translations: [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] Onset: 08-25-2022 Episodic Other [...] Interpretation Reference Range Facility Follow-Upon 08-19-2023 Follow-Up [id number] Yamileth Small 1970 F Date Provider Department [facility] 08/19/2023 TOMAS ROBERTO I [facility] No family history on file Level of Service:06524 SC OFFICE/OUTPATIENT ESTABLISHED MOD MDM 30-39 MIN Reason for Visit and Comments: Follow-up [162410] - Follow up [facility] Orders Onlyon 08-12-2023 Orders Only [id number] Yamileth Small 1970 F Date Provider Department [facility] 08/12/2023 [id number], HISTORICAL [facility] PRIM [facility] No family history on file [facility] 36on 08-10-2023 36 Left detailed messag e that labs were placed. [facility] Orders Onlyon 08-10-2023 Orders Only [id number] Yamileth Small 1970 F Date Provider Department [facility] 08/10/2023 TOMAS ROBERTO I [facility] No family history on file [facility] 36on 08-05-2023 36 Patient has an apt o n and is wondering if there are any labs she needs to do prior to her visit. Please advise. Thanks! [facility] 36 Patient called [facility] Follow-Upon 06-03-2023 Follow-Up [id number] Yamileth Small 1970 F Date Provider Department Center 06/03/2023 TOMAS ROBERTO I [facility] No family history on file Level of Service:79593 SC OFFICE/OUTPATIENT ESTABLISHED MOD MDM 30-39 MIN (GC) Reason for Visit and Comments: Follow-up [493273] - Follow up [facility] 36on 04-08-2023 36 Last visit pt instru cted to finish current supply and then stop [facility] Ambulatory Visit Summaryon 0 04-07-2023 Ambulatory Visit [...] erythematosus Varicose veins of legs Normal [facility] General Surgery Office/Clini c Noteon [...] SARS-CoV-2 (COVID-19) mRNA-1273 vaccine 08/07/2022 Recorded SARSCoV2 mRNA(iwkvcddag-qkgd-svwdvs) vac 01/01/2022 Recorded SARS-CoV-2 (COVID-19) mRNA-1273 vaccine 06/18/2021 Recorded 2023-02-26: TPV50 SARS-CoV-2 (COVID-19) mRNA-1273 vaccine 10/30/2020 Recorded SARS-CoV-2 (COVID-19) mRNA-1273 vaccine 10/02/2020 Recorded [facility] Comment on above: Result Comment: Elec tronically Signed By: RAUDEL PUENTES, Joselo Barrera\Date and Time Signed: 04/07/23 14:01 EDT Reminderson 04-02-2023 Reminders - From: Cristal Gordon LPN To: GSN - Clinical; Sent: 04/02/2023 11:03:11 EDT Show up: 02/21/2033 07:00:00 EDT Subject: colonoscopy recall Due Date/Time: 03/24/2033 07:00:00 EDT Reminder/Recall Patient due for screening colonoscopy 03/24/2033. [facility] Pathology Noteon 03-29-2023 Pathology Note [id number]#1.00CD:127 [facility] Outside Colonoscopyon 2022 Outside Colonoscopy [id number]#1.00CD:127 [facility] Pre-Certification Formon Pre-Certification Form [id number]#1.00CD:127 [facility] Consent for Procedure/Surger yon 03-05-2023 Consent for Procedure/Surgery [id number]#1.00CD:127 Normal [facility] Facesheeton 03-04-2023 Facesheet [id number]#1.00CD:127 Normal [facility] Ambulatory Visit Summaryon 0 03-03-2023 [...] lupus erythematosus Varicose veins of legs Normal [facility] RAD - CT Reporton 03-03-2023 RAD - CT Report [id number]#1.00CD:127 Normal [facility] Orders Onlyon 03-02-2023 Orders Only [id number] Yamileth Small 1970 F Date Provider Department Center 03/02/2023 Mary Alice-EYAL ALEGRIA [facility] No family history on file Normal [facility] Physician Referralon 023 Physician Referral [id number]#1.00CD:127 Normal [facility] CT ABD/PELV W CONon 02-13-[address] [...] by: IDA SOTO Date: 2023-02-12 09:54 Normal [facility] Orders Onlyon 02-08-2023 Orders Only [id number] Yamileth Small 1970 F Date Provider Department Center 02/08/2023 [id number], HISTORICAL [facility] PHYS MED [facility] No family history on file Normal [facility] QUANTIFERON TB GOLD PLUSon 0 02-07-2023 QuantiFERON Criteria Comment Normal [facility] Comment on above: Result Comment: Rehan tiFERON-TB [...] test. Performed By: #### Q NTTB #### [facility] [address] [place] [address] Dr. Jazmyn Saavedra QuantiFERON Incubation Incubation performed. Normal [facility] Comment on above: Performed By: #### Q NTTB #### [facility] [address] [place] [address] Dr. Jazmyn Saavedra QuantiFERON Mitogen Value 6.87 IU/mL Normal [facility] Comment on above: Performed By: #### Q NTTB #### [facility] [address] [place] [address] Dr. Jazmyn Saavedra QuantiFERON Nil Value 0.00 IU/mL [facility] Comment on above: Performed By: #### Q NTTB #### [facility] [address] [place] [address] Dr. Jazmyn Saavedra QuantiFERON TB1 Ag Value 0.00 IU/mL Normal [facility] Comment on above: Performed By: #### Q NTTB #### [facility] [address] [place] [address] Dr. Jazmyn Saavedra QuantiFERON TB2 Ag Value 0.00 IU/mL Normal [facility] Comment on above: Performed By: #### Q NTTB #### [facility] [address] [place] [address] Dr. Jazmyn Saavedra QuantiFERON-TB Gold Plus Negative Normal Negative [facility] Comment on above: Result Comment: No r esponse to M tuberculosis antigens detected. Infection with M tuberculosis is unlikely, but high risk individuals should be considered for additional testing (ATS/IDSA/CDC Clinical Practice Guidelines, 2017). The reference range is an Antigen minus Nil result of <0.35 IU/mL. Chemiluminescence immunoassay methodology Performed By: #### Q NTTB #### [facility] [address] [place] [address] Dr. Jazmyn Saavedra HEP B COREon 02-06-2023 Hep B Core Ab, Tot Negative Normal Negative [facility] Comment on above: Performed By: #### S EDR #### [facility] [address] [place] [address] Dr. Jazmyn Saavedra HEP B SURFACE ANTIGEN SCREEN on 02-06-2023 HBsAg Screen Negative Normal Negative [facility] Comment on above: Performed By: #### H BSANS #### [facility] [address] [place] [address] Dr. Jazmyn Saavedra CBC AUTO DIFFon 02-05-2023 BASO # 0.0 103/ul Normal 0.0-0.1 [facility] Comment on above: Performed By: #### C BC #### [facility] [address] [place] [address] Dr. Jazmyn Saavedra Basophils/100 WBC (Bld) 0.5 % Normal 0.2-2.0 [facility] Comment on above: Performed By: #### C BC #### [facility] [address] [place] [address] Dr. Jazmyn Saavedra EO # 0.0 103/ul Normal 0.0-0.7 [facility] Comment on above: Performed By: #### C BC #### [facility] [address] [place] [address] Dr. Jazmyn Saavedra Eosinophils/100 WBC (Bld) 0.8 % Critically low 0.9-7.0 [facility] Comment on above: Performed By: #### C BC #### [facility] [address] [place] [address] Dr. Jazmyn Saavedra Erythrocyte distribution width (RBC) [Ratio] 13.2 % Normal 11.0-15.0 [facility] Comment on above: Performed By: #### C BC #### [facility] [address] [place] [address] Dr. Jazmyn Saavedra Hematocrit (Bld) [Volume fraction] 41.1 % Normal 36.0-48.0 [facility] Comment on above: Performed By: #### C BC #### [facility] [address] [place] [address] Dr. Jazmyn Saavedra Hemoglobin (Bld) [Mass/Vol] 13.4 g/dL Normal 12.0-16.0 [facility] Comment on above: Performed By: #### C BC #### [facility] [address] [place] [address] Dr. Jazmyn Saavedra IG # 0.01 10e3/ul Normal 0.00-0.03 [facility] Comment on above: Performed By: #### C BC #### [facility] [address] [place] [address] Dr. Jazmyn Saavedra IG % 0.3 % Normal 0.0-0.5 [facility] Comment on above: Performed By: #### C BC #### [facility] [address] [place] [address] Dr. Jazmyn Saavedra LYMPH # 1.2 103/ul Normal 1.2-3.8 [facility] Comment on above: Performed By: #### C BC #### [facility] [address] [place] [address] Dr. Jazmyn Saavedra Lymphocytes/100 WBC (Bld) 31.9 % Normal 20.5-60.0 [facility] Comment on above: Performed By: #### C BC #### [facility] [address] [place] [address] Dr. Jazmyn Saavedra MANUAL DIFF REQ NO Normal [facility] Comment on above: Performed By: #### C BC #### [facility] [address] [place] [address] Dr. Jazmyn Saavedra MCH (RBC) [Entitic mass] 30.6 pg Normal 26.7-34.0 [facility] Comment on above: Performed By: #### C BC #### [facility] [address] [place] [address] Dr. Jazmyn Saavedra MCHC (RBC) [Mass/Vol] 32.6 g/dL Normal 29.9-35.2 [facility] Comment on above: Performed By: #### C BC #### [facility] [address] [place] [address] Dr. Jazmyn Saavedra MCV (RBC) [Entitic vol] 93.8 fL Normal 81.0-99.0 [facility] Comment on above: Performed By: #### C BC #### [facility] [address] [place] [address] Dr. Jazmyn Saavedra MONO # 0.5 103/ul Normal 0.3-0.8 [facility] Comment on above: Performed By: #### C BC #### [facility] [address] [place] [address] Dr. Jazmyn Saavedra Monocytes/100 WBC (Bld) 14.1 % Critically high 1.7-12.0 [facility] Comment on above: Performed By: #### C BC #### [facility] [address] [place] [address] Dr. Jazmyn Saavedra NEUT # 1.9 103/ul Normal 1.4-6.5 [facility] Comment on above: Performed By: #### C BC #### [facility] [address] [place] [address] Dr. Jazmyn Saavedra Neutrophils/100 WBC (Bld) 52.4 % Normal 43.0-75.0 [facility] Comment on above: Performed By: #### C BC #### [facility] [address] [place] [address] Dr. Jazmyn Saavedra Platelet mean volume (Bld) [Entitic vol] 9.4 fL Critically low 9.5-13.5 [facility] Comment on above: Performed By: #### C BC #### [facility] [address] [address] [address] Jazmyn Saavedra PLT 342 103/ul Normal 150-450 [facility] Comment on above: Performed By: #### C BC #### [facility] [address] [place] [address] Dr. Jazmyn Saavedra RBC 4.38 106/ul Normal 4.20-5.40 [facility] Comment on above: Performed By: #### C BC #### [facility] [address] [place] [address] Dr. Jazmyn Saavedra WBC 3.7 103/ul Critically low 4.0-11.0 [facility] Comment on above: Performed By: #### C BC #### [facility] [address] [place] [address] Dr. Jazmyn Saavedra FREE THYROXINE INDEX T7on FTI 3.20 Normal 1.30-4.50 [facility] Comment on above: Performed By: #### S EDR #### [facility] [address] [place] [address] Dr. Jazmyn Saavedra T3U 36.0 % Normal 30.0-39.0 [facility] Comment on above: Performed By: #### S EDR #### [facility] [address] [place] [address] Dr. Jazmyn Saavedra T4 [Mass/Vol] 8.90 ug/dL Normal 4.80-13.90 [facility] Comment on above: Performed By: #### S EDR #### [facility] [address] [place] [address] Dr. Jazmyn Saavedra GLYCOHEMOGLOBIN A1Con 2022 ADA RECOMMENDATION SEE BELOW Normal [facility] Comment on above: Result Comment: ADA RECOMMENDED LIMIT 4.0 - 6.0 ADA THERAPEUTIC TARGET < 7.0 ACTION SUGGESTED > 7.0 Performed By: #### S EDR #### [facility] [address] [address] [address] Jazmyn Saavedra Glucose [Mass/Vol] 123 mg/dL Normal [facility] Comment on above: Performed By: #### S EDR #### [facility] [address] [address] [address] Jazmyn Saavedra HbA1c (Bld) [Mass fraction] 5.9 % Normal 4.5-6.2 [facility] Comment on above: Performed By: #### S EDR #### [facility] [address] [place] [address] Dr. Jazmyn Saavedra LIPID PROFILEon 02-05-2023 CHOL-HDL RATIO NORM SEE BELOW Normal [facility] Comment on above: Result Comment: 3.3 - 4.4 LOW RISK 4.4 - 7.1 AVERAGE RISK 7.1 - 11.0 MODERATE RISK >11.0 HIGH RISK Performed By: #### S EDR #### [facility] [address] [place] [address] Dr. Jazmyn Saavedra Cholesterol [Mass/Vol] 256 mg/dL Critically high <=200 [facility] Comment on above: Performed By: #### S EDR #### [facility] [address] [place] [address] Dr. Jazmyn Saavedra Cholesterol in HDL [Mass/Vol] 108 mg/dL Critically high 40-60 [facility] Comment on above: Performed By: #### S EDR #### [facility] [address] [place] [address] Dr. Jazmyn Saavedra Cholesterol in LDL [Mass/Vol] 139.4 mg/dL Normal [facility] Comment on above: Performed By: #### S EDR #### [facility] [address] [place] [address] Dr. Jazmyn Saavedra Cholesterol.total/ Cholesterol in HDL [Mass ratio] 2.4 {ratio} Normal [facility] Comment on above: Performed By: #### S EDR #### [facility] [address] [address] [address] Jazmyn Saavedra HDL NORMAL > or = 60 mg/dl - LO W CARDIOVASCULAR RISK <40 mg/dl - HIGH CARDIOVASCULAR RISK Normal [facility] Comment on above: Performed By: #### S EDR #### [facility] [address] [address] [address] Jazmyn Saavedra LDL CALC NORMAL SEE BELOW Normal [facility] Comment on above: Result Comment: <100 mg/dl OPTIMAL 100 - 129 mg/dl NEAR OR ABOVE OPTIMAL 130 - 159 mg/dl BORDERLINE HIGH 160 - 189 mg/dl HIGH >190 mg/dl VERY HIGH Performed By: #### S EDR #### [facility] [address] [address] [address] Jazmyn Saavedra Triglyceride [Mass/Vol] 43 mg/dL Normal <=150 [facility] Comment on above: Performed By: #### S EDR #### [facility] [address] [address] [address] Jazmyn Saavedra VLDL CALC 8.6 mg/dL Normal [facility] Comment on above: Performed By: #### S EDR #### [facility] [address] [place] [address] Dr. Jazmyn Saavedra Orders Onlyon 02-05-2023 Orders Only [id number] Yamileth Small 1970 F Date Provider Department [facility] 02/05/2023 [id number], HISTORICAL [facility] PHYS [facility] No family history on file Normal [facility] PROF 14(COMP METB)on 023 Albumin [Mass/Vol] 4.0 g/dL Normal 3.4-5.0 [facility] Comment on above: Performed By: #### T 7, CMP, LIPID, TSH #### [facility] [address] [place] [address] Dr. Jazmyn Saavedra Albumin/Globulin [Mass ratio] 0.9 {ratio} Normal [facility] Comment on above: Performed By: #### T 7, CMP, LIPID, TSH #### [facility] [address] [address] [address] Jazmyn Saavedra ALP [Catalytic activity/Vol] 57 U/L Normal 46-116 [facility] Comment on above: Performed By: #### T 7, CMP, LIPID, TSH #### [facility] [address] [place] [address] Dr. Jazmyn Saavedra ALT [Catalytic activity/Vol] 23 U/L Normal 14-59 [facility] Comment on above: Performed By: #### T 7, CMP, LIPID, TSH #### [facility] [address] [place] [address] Dr. Jazmyn Saavedra Anion gap [Moles/Vol] 13.8 mmol/L Normal [facility] Comment on above: Performed By: #### T 7, CMP, LIPID, TSH #### [facility] [address] [place] [address] Dr. Jazmyn Saavedra AST [Catalytic activity/Vol] 23 U/L Normal 15-37 [facility] Comment on above: Performed By: #### T 7, CMP, LIPID, TSH #### [facility] [address] [place] [address] Dr. Jazmyn Saavedra Bilirubin [Mass/Vol] 0.6 mg/dL Normal 0.2-1.0 [facility] Comment on above: Performed By: #### T 7, CMP, LIPID, TSH #### [facility] [address] [place] [address] Dr. Jazmyn Saavedra Calcium [Mass/Vol] 9.6 mg/dL Normal 8.5-10.1 [facility] Comment on above: Performed By: #### T 7, CMP, LIPID, TSH #### [facility] [address] [place] [address] Dr. Jazmyn Saavedra Chloride [Moles/Vol] 100 mmol/L Normal 98-107 [facility] Comment on above: Performed By: #### T 7, CMP, LIPID, TSH #### [facility] [address] [address] [address] Jazmyn Saavedra CO2 [Moles/Vol] 29.9 mmol/L Normal 21.0-32.0 [facility] Comment on above: Performed By: #### T 7, CMP, LIPID, TSH #### [facility] [address] [address] [address] Jazmyn Saavedra Creatinine [Mass/Vol] 0.89 mg/dL Normal 0.55-1.02 [facility] Comment on above: Performed By: #### T 7, CMP, LIPID, TSH #### [facility] [address] [address] [address] Jazmyn Saavedra EGFR-AF SINGAPOREAN >60 Normal >=60 [facility] Comment on above: Performed By: #### T 7, CMP, LIPID, TSH #### [facility] [address] [address] [address] Jazmyn Saavedra EGFR-NON AF [place]INGAPOREAN >60 Normal >=60 [facility] Comment on above: Performed By: #### T 7, CMP, LIPID, TSH #### [facility] [address] [address] [address] Jazmyn Saavedra Globulin (S) [Mass/Vol] 4.4 g/dL Normal [facility] Comment on above: Performed By: #### T 7, CMP, LIPID, TSH #### [facility] [address] [address] [address] Jazmyn Saavedra Glucose [Mass/Vol] 89 mg/dL Normal 74-106 [facility] Comment on above: Performed By: #### T 7, CMP, LIPID, TSH #### [facility] [address] [address] [address] Jazmyn Saavedra Potassium [Moles/Vol] 3.7 mmol/L Normal 3.5-5.1 [facility] Comment on above: Performed By: #### T 7, CMP, LIPID, TSH #### [facility] [address] [address] [address] Jazmyn Saavedra Protein [Mass/Vol] 8.4 g/dL Critically high 6.4-8.2 [facility] Comment on above: Performed By: #### T 7, CMP, LIPID, TSH #### [facility] [address] [place] [address] Dr. Jazmyn Saavedra Sodium [Moles/Vol] 140 mmol/L Normal 136-145 [facility] Comment on above: Performed By: #### T 7, CMP, LIPID, TSH #### [facility] [address] [address] [address] Jazmyn Saavedra Urea nitrogen [Mass/Vol] 17.0 mg/dL Normal 7.0-18.0 [facility] Comment on above: Performed By: #### T 7, CMP, LIPID, TSH #### [facility] [facility] [address] [address] [address] Jazmyn Saavedra Urea nitrogen/Creatinin e [Mass ratio] 19.1 mg/mg Normal [facility] Comment on above: Performed By: #### T 7, CMP, LIPID, TSH #### [facility] [address] [address] [address] Jazmyn Saavedra TSHon 02-05-2023 TSH 0.984 uIU/mL Normal 0.358-3.740 [facility] Comment on above: Performed By: #### S EDR #### [facility] [address] [address] [address] Jazmyn Saavedra Documentationon 01-29-2023 Documentation [id number] Yamileth Small 1970 Date Provider Department Center 01/29/2023 EDUARD ALEXANDRE [facility] RHEUM Yamil Heal No family history on file Reason for Visit and Comments: Specialty Pharmacy Note: [facility] Prescription [Other] [facility] Follow-Upon 01-28-2023 Follow-Up [id number] Yamileth Small 1970 F Date Provider Department Center 01/28/2023 EYAL SPENCE [facility] RHEUM [facility] No family history on file Level of Service:57644 SC OFFICE/OUTPATIENT ESTABLISHED MOD MDM 30-39 MIN (GC) [facility] PAP ACOG PANEL 2: 30 to 65on 10-07-2022 . . Normal [facility] Comment on above: Result Comment: Perf ormed at: [facility] Performed By: #### S EDR #### [facility] [address] [address] [address] Jazmyn Saavedra Age Gdln ACOG Testing 30-65 Normal [facility] Comment on above: Performed By: #### S EDR #### [facility] [address] [place] [address] Dr. Jazmyn Saavedra DIAGNOSIS: Comment Normal [facility] Comment on above: Result Comment: NEGA TIVE FOR INTRAEPITHELIAL LESION OR MALIGNANCY. Performed at: [facility] Performed By: #### S EDR #### [facility] [address] [place] [address] Dr. Jazmyn Saavedra HPV Aptima Negative Normal Negative [facility] Comment on above: Result Comment: This nucleic acid amplification test detects fourteen high-risk HPV types (16,18,31,33,35,39,45,51,52,56,58,59,66,68) without differentiation. Performed at: =G Performed By: #### S EDR #### [facility] [address] [place] [address] Dr. Jazmyn Saavedra HPV Genotype Reflex Comment Normal [facility] Comment on above: Result Comment: Crit eria not met, HPV Genotype not performed. Performed at: [facility] Performed By: #### S EDR #### [facility] [address] [place] [address] Dr. Jazmyn Saavedra Methodology: Comment Normal [facility] Comment on above: Result Comment: This liquid based ThinPrep(R) pap test was screened with the use of an image guided system. Performed at: [facility] Performed By: #### S EDR #### [facility] [address] [place] [address] Dr. Jazmyn Saavedra Note: Comment Normal [facility] Comment on above: Result Comment: The Pap smear is a screening test designed to aid in the detection of premalignant and malignant conditions of the uterine cervix. It is not a diagnostic procedure and should not be used as the sole means of detecting cervical cancer. Both false-positive and false-negative reports do occur. . Performed at: [facility] Performed By: #### S EDR #### [facility] [address] [place] [address] Dr. Jazmyn Saavedra Performed by: Comment Normal [facility] Comment on above: Result Comment: Daryl Calhoun, Casket Assembler (ASCP) Performed at: [facility] Performed By: #### S EDR #### [facility] [address] [address] [address] Jazmyn Saavedra Specimen adequacy: Comment Normal [facility] Comment on above: Result Comment: Sati sfactory for evaluation. Endocervical component may not be distinguished in cases of atrophy. Performed at: [facility] Performed By: #### S EDR #### [facility] [address] [address] [address] Jazmyn Saavedra Orders Onlyon 08-31-2022 Orders Only [id number] Yamileth Small 1970 F Date Provider Department Center 08/31/2022 [id number], HISTORICAL [facility] PHYS MED [facility] No family history on file Normal [facility] XR DEXA BONE DENSITYon 08-28 XR [...] by: GILBERT GEORGE Date: 2022-08-28 08:47 Normal [facility] CBC AUTO DIFFon 08-25-2022 BASO # 0.0 103/ul Normal 0.0-0.1 [facility] Comment on above: Performed By: #### S EDR #### [facility] [address] [address] [address] Jazmyn Saavedra Basophils/100 WBC (Bld) 0.5 % Normal 0.2-2.0 [facility] Comment on above: Performed By: #### S EDR #### [facility] [address] [place] [address] Dr. Jazmyn Saavedra EO # 0.1 103/ul Normal 0.0-0.7 [facility] Comment on above: Performed By: #### S EDR #### [facility] [address] [place] [address] Dr. Jazmyn Saavedra Eosinophils/100 WBC (Bld) 1.2 % Normal 0.9-7.0 [facility] Comment on above: Performed By: #### S EDR #### [facility] [address] [place] [address] Dr. Jazmyn Saavedra Erythrocyte distribution width (RBC) [Ratio] 13.2 % Normal 11.0-15.0 [facility] Comment on above: Performed By: #### S EDR #### [facility] [address] [place] [address] Dr. Jazmyn Saavedra Hematocrit (Bld) [Volume fraction] 38.4 % Normal 36.0-48.0 [facility] Comment on above: Performed By: #### S EDR #### [facility] [address] [place] [address] Dr. Jazmyn Saavedra Hemoglobin (Bld) [Mass/Vol] 12.6 g/dL Normal 12.0-16.0 [facility] Comment on above: Performed By: #### S EDR #### [facility] [address] [place] [address] Dr. Jazmyn Saavedra IG # 0.01 10e3/ul Normal 0.00-0.03 [facility] Comment on above: Performed By: #### S EDR #### [facility] [address] [place] [address] Dr. Jazmyn Saavedra IG % 0.2 % Normal 0.0-0.5 [facility] Comment on above: Performed By: #### S EDR #### [facility] [address] [place] [address] Dr. Jazmyn Saavedra LYMPH # 1.7 103/ul Normal 1.2-3.8 [facility] Comment on above: Performed By: #### S EDR #### [facility] [address] [place] [address] Dr. Jazmyn Saavedra Lymphocytes/100 WBC (Bld) 40.8 % Normal 20.5-60.0 [facility] Comment on above: Performed By: #### S EDR #### [facility] [address] [place] [address] Dr. Jazmyn Saavedra MANUAL DIFF REQ NO Normal [facility] Comment on above: Performed By: #### S EDR #### [facility] [address] [place] [address] Dr. Jazmyn Saavedra MCH (RBC) [Entitic mass] 31.0 pg Normal 26.7-34.0 [facility] Comment on above: Performed By: #### S EDR #### [facility] [address] [place] [address] Dr. Jazmyn Saavedra MCHC (RBC) [Mass/Vol] 32.8 g/dL Normal 29.9-35.2 [facility] Comment on above: Performed By: #### S EDR #### [facility] [address] [place] [address] Dr. Jazmyn Saavedra MCV (RBC) [Entitic vol] 94.3 fL Normal 81.0-99.0 [facility] Comment on above: Performed By: #### S EDR #### [facility] [address] [place] [address] Dr. Jazmyn Saavedra MONO # 0.5 103/ul Normal 0.3-0.8 [facility] Comment on above: Performed By: #### S EDR #### [facility] [address] [place] [address] Dr. Jazmyn Saavedra Monocytes/100 WBC (Bld) 11.9 % Normal 1.7-12.0 [facility] Comment on above: Performed By: #### S EDR #### [facility] [address] [place] [address] Dr. Jazmyn Saavedra NEUT # 1.9 103/ul Normal 1.4-6.5 [facility] Comment on above: Performed By: #### S EDR #### [facility] [address] [address] [address] Jazmyn Saavedra Neutrophils/100 WBC (Bld) 45.4 % Normal 43.0-75.0 [facility] Comment on above: Performed By: #### S EDR #### [facility] [address] [address] [address] Jazmyn Saavedra Platelet mean volume (Bld) [Entitic vol] 9.3 fL Critically low 9.5-13.5 [facility] Comment on above: Performed By: #### S EDR #### [facility] [address] [place] [address] Dr. Jazmyn Saavedra PLT 309 103/ul Normal 150-450 [facility] Comment on above: Performed By: #### S EDR #### [facility] [address] [address] [address] Jazmyn Saavedra RBC 4.07 106/ul Critically low 4.20-5.40 [facility] Comment on above: Performed By: #### S EDR #### [facility] [address] [place] [address] Dr. Jazmyn Saavedra WBC 4.2 103/ul Normal 4.0-11.0 [facility] Comment on above: Performed By: #### S EDR #### [facility] [address] [place] [address] Dr. Jazmyn Saavedra CRPon 08-25-2022 CRP [Mass/Vol] mg/L Normal <=1.0 [facility] Comment on above: Performed By: #### C RP, CMP, LIPID #### [facility] [address] [place] [address] Dr. Jazmyn Saavedra LIPID PROFILEon 08-25-2022 CHOL-HDL RATIO NORM SEE BELOW Normal [facility] Comment on above: Result Comment: 3.3 - 4.4 LOW RISK 4.4 - 7.1 AVERAGE RISK 7.1 - 11.0 MODERATE RISK >11.0 HIGH RISK Performed By: #### C RP, CMP, LIPID #### [facility] [address] [address] [address] Jazmyn Saavedra Cholesterol [Mass/Vol] 251 mg/dL Critically high <=200 [facility] Comment on above: Performed By: #### C RP, CMP, LIPID #### [facility] [address] [address] [address] Jazmyn Saavedra Cholesterol in HDL [Mass/Vol] 102 mg/dL Critically high 40-60 [facility] Comment on above: Performed By: #### C RP, CMP, LIPID #### [facility] [address] [address] [address] Jazmyn Saavedra Cholesterol in LDL [Mass/Vol] 135.0 mg/dL Normal [facility] Comment on above: Performed By: #### C RP, CMP, LIPID #### [facility] [address] [place] [address] Dr. Jazmyn Saavedra Cholesterol.total/ Cholesterol in HDL [Mass ratio] 2.5 {ratio} Normal [facility] Comment on above: Performed By: #### C RP, CMP, LIPID #### [facility] [address] [address] [address] Jazmyn Saavedra HDL NORMAL > or = 60 mg/dl - LO W CARDIOVASCULAR RISK <40 mg/dl - HIGH CARDIOVASCULAR RISK Normal [facility] Comment on above: Performed By: #### C RP, CMP, LIPID #### [facility] [address] [address] [address] Jazmyn Saavedra LDL CALC NORMAL SEE BELOW Normal [facility] Comment on above: Result Comment: <100 mg/dl OPTIMAL 100 - 129 mg/dl NEAR OR ABOVE OPTIMAL 130 - 159 mg/dl BORDERLINE HIGH 160 - 189 mg/dl HIGH >190 mg/dl VERY HIGH Performed By: #### C RP, CMP, LIPID #### [facility] [address] [address] [address] Jazmyn Saavedra Triglyceride [Mass/Vol] 70 mg/dL Normal <=150 [facility] Comment on above: Performed By: #### C RP, CMP, LIPID #### [facility] [address] [place] [address] Dr. Jazmyn Saavedra VLDL CALC 14.0 mg/dL Normal [facility] Comment on above: Performed By: #### C RP, CMP, LIPID #### [facility] [address] [address] [address] Jazmyn Saavedra Orders Onlyon 08-25-2022 Orders Only [id number] Yamileth Small 1970 F Date Provider Department Center 08/25/2022 [id number], HISTORICAL [facility] ORTHO [facility] No family history on file Normal [facility] PROF 14(COMP METB)on 022 Albumin [Mass/Vol] 3.9 g/dL Normal 3.4-5.0 [facility] Comment on above: Performed By: #### C RP, CMP, LIPID #### [facility] [address] [place] [address] Dr. Jazmyn Saavedra Albumin/Globulin [Mass ratio] 1.0 {ratio} Normal [facility] Comment on above: Performed By: #### C RP, CMP, LIPID #### [facility] [address] [place] [address] Dr. Jazmyn Saavedra ALP [Catalytic activity/Vol] 49 U/L Normal 46-116 [facility] Comment on above: Performed By: #### C RP, CMP, LIPID #### [facility] [address] [place] [address] Dr. Jazmyn Saavedra ALT [Catalytic activity/Vol] 17 U/L Normal 14-59 [facility] Comment on above: Performed By: #### C RP, CMP, LIPID #### [facility] [address] [address] [address] Jazmyn Saavedra Anion gap [Moles/Vol] 10.1 mmol/L Normal [facility] Comment on above: Performed By: #### C RP, CMP, LIPID #### [facility] [address] [place] [address] Dr. Jazmyn Saavedra AST [Catalytic activity/Vol] 19 U/L Normal 15-37 [facility] Comment on above: Performed By: #### C RP, CMP, LIPID #### [facility] [address] [address] [address] Jazmyn Saavedra Bilirubin [Mass/Vol] 0.5 mg/dL Normal 0.2-1.0 [facility] Comment on above: Performed By: #### C RP, CMP, LIPID #### [facility] [address] [address] [address] Jazmyn Saavedra Calcium [Mass/Vol] 9.3 mg/dL Normal 8.5-10.1 [facility] Comment on above: Performed By: #### C RP, CMP, LIPID #### [facility] [address] [place] [address] Dr. aJzmyn Saavedra Chloride [Moles/Vol] 103 mmol/L Normal 98-107 [facility] Comment on above: Performed By: #### C RP, CMP, LIPID #### [facility] [address] [place] [address] Dr. Jazmyn Saavedra CO2 [Moles/Vol] 30.1 mmol/L Normal 21.0-32.0 [facility] Comment on above: Performed By: #### C RP, CMP, LIPID #### [facility] [address] [place] [address] Dr. Jazmyn Saavedra Creatinine [Mass/Vol] 0.80 mg/dL Normal 0.55-1.02 [facility] Comment on above: Performed By: #### C RP, CMP, LIPID #### [facility] [address] [place] [address] Dr. Jazmyn Saavedra EGFR-AF SINGAPOREAN >60 Normal >=60 [facility] Comment on above: Performed By: #### C RP, CMP, LIPID #### [facility] [address] [place] [address] Dr. Jazmyn Saavedra EGFR-NON AF [place]INGAPOREAN >60 Normal >=60 [facility] Comment on above: Performed By: #### C RP, CMP, LIPID #### [facility] [address] [place] [address] Dr. Jazmyn Saavedra Globulin (S) [Mass/Vol] 4.1 g/dL Normal [facility] Comment on above: Performed By: #### C RP, CMP, LIPID #### [facility] [address] [address] [address] Jazmyn Saavedra Glucose [Mass/Vol] 92 mg/dL Normal 74-106 [facility] Comment on above: Performed By: #### C RP, CMP, LIPID #### [facility] [address] [place] [address] Dr. Jazmyn Saavedra Potassium [Moles/Vol] 4.2 mmol/L Normal 3.5-5.1 [facility] Comment on above: Performed By: #### C RP, CMP, LIPID #### [facility] [address] [place] [address] Dr. Jazmyn Saavedra Protein [Mass/Vol] 8.0 g/dL Normal 6.4-8.2 [facility] Comment on above: Performed By: #### C RP, CMP, LIPID #### [facility] [address] [place] [address] Dr. Jazmyn Saavedra Sodium [Moles/Vol] 139 mmol/L Normal 136-145 [facility] Comment on above: Performed By: #### C RP, CMP, LIPID #### [facility] [address] [place] [address] Dr. Jazmyn Saavedra Urea nitrogen [Mass/Vol] 20.0 mg/dL Critically high 7.0-18.0 [facility] Comment on above: Performed By: #### C RP, CMP, LIPID #### [facility] [address] [place] [address] Dr. Jazmyn Saavedra Urea nitrogen/Creatinin e [Mass ratio] 25.0 mg/mg Normal [facility] Comment on above: Performed By: #### C RP, CMP, LIPID #### [facility] [address] [place] [address] Dr. Jazmyn Saavedra SED RATE [facility] 2021 SED RATE 47 mm/hr Critically high <=30 [facility] Comment on above: Performed By: #### S EDR #### [facility] [address] [place] [address] Dr. Jazmyn Saavedra ASYMPTOMATIC COVID-19 ANTIGE Non 05-18-2022 EUA Statement SEE BELOW Normal [facility] Comment on above: Result Comment: [...] sooner. Performed By: #### S EDR #### [facility] [address] [place] [address] Dr. Jazmyn Saavedra SARS-CoV-2 (COVID-19) RNA NILES+probe Ql (Unsp spec) Positive Critically abnormal NEGATIVE [facility] Comment on above: Result Comment: SARS -CoV-2 antigen present; does not rule out coinfection with other pathogens. Performed By: #### S EDR #### [facility] [address] [place] [address] Dr. Jazmyn Saavedra [facility] SARS-CoV-2 (COVID-19) RNA NILES+probe Ql (Unsp spec) Detected Critically abnormal NOT DETECTED [facility] Comment on above: Result Comment: This test is not yet approved or cleared by the [place] FDA. When there are no FDA-approved or cleared tests available, and other criteria are met, FDA can make tests available under an emergency access mechanism called an Emergency Use Authorization (EUA). The EUA for this test is supported by the [place] of Health and Human Service's declaration that [...] longer be used). Performed By: #### C TB #### [facility] [address] [address] [address] Jazmyn BARLOW MULTI-CANCER PANELon 02-12-2021 RESULT Results to be mailed directly to physician's office by reference lab. Normal [facility] Comment on above: Result Comment: Test performed by [facility] [address] [place] [address] [phone] No result expected. For billing and tracking purposes only. Performed By: #### 3 [id number] #### [address] Vital Signs Date Time Vital Sign Value Performing Clinician Flor romano 03-03-2023 14:35-0400 Blood Pressure Location [employer] [facility] 03-03-2023 14:35-0400 Diastolic blood pressure 68 mm[Hg] [employer] [facility] 03-03-2023 14:35-0400 Heart rate 68 /min [employer] [facility] 03-03-2023 14:35-0400 Respiratory rate 16 /min [employer] [facility] 03-03-2023 14:35-0400 Systolic blood pressure 114 mm[Hg] [employer] [facility] Encounters Encounter Date Encounter Type Care Provider Facility Start: 10-28-2023 End: 10-28-2023 ambulatory FELIX WHITNEY Not Available Start: 09-29-2023 End: 09-29-2023 ambulatory FELIX WHITNEY Not Available Start: 08-19-2023 End: 08-19-2023 ambulatory TOMAS Solorio [facility] Start: 06-03-2023 End: 06-03-2023 ambulatory TOMAS Solorio [facility] Start: 04-07-2023 End: 04-08-2023 [facility] Start: 04-07-2023 End: 04-07-2023 Patient encounter procedure Joselo R NILL General Surgery Nill/Said Arvind Start: 03-24-2023 End: 03-25-2023 ambulatory Joselo R NILL Facility:CD:[id number] Start: 03-03-2023 End: 03-04-2023 [facility]ulatory [facility] Start: 03-03-2023 End: 03-03-2023 Patient encounter procedure Joselo R NILL General Surgery Nill/Said Arvind Start: 02-18-2023 ambulatory ASHLEIGH [facility] Start: 02-18-2023 ambulatory Mariza Hoy Facility:[facility] Start: 02-12-2023 Encounter for genera l adult medical examination without abnormal findings MARIZA HOY [facility] Start: 02-12-2023 End: 02-13-2023 ambulatory MARIZA HOCleopatra Facility:[facility] Start: 02-05-2023 End: 02-06-[address] DOCTOR KELLOGG Facility:[facility] Start: 02-05-2023 End: 02-06-2023 Encounter for general adult medical examination without abnormal findings MARIZA HOY Facility:[facility] Start: 02-04-2023 End: 02-05-[address] IDA SOTO Facility:[facility] Start: 01-28-2023 End: 01-28-20[facility] Start: 09-23-2022 End: 09-23-[address] RUTHANN CA . Facility:[facility] Start: 08-28-2022 End: 08-29-[address] DOCTOR KELLOGG Facility:[facility] Start: 08-25-2022 End: 08-26-[address] DOCTOR KELLOGG Facility:[facility] Start: 08-07-2022 End: 08-08-2022 ambulatory MARIZA WRIGHT Facility:[facility] Start: 05-18-2022 End: 05-18-2022 ambulatory JACQUI BAUMANN Facility: Start: 05-12-2022 End: 05-12-2022 ambulatory JACQUI EBERLY Facility: Procedures Date Procedure Procedure Detail Performing Clinician Start: 08-19-2023 Follow-up visit Follow-up TOMAS CLINTON Start: 03-24-2023 Colonoscopy Joselo SCANLONL Start: 03-24-2023 Esophagogastroduodenoscopy Joselo SCANLONL Start: 07-24-2015 Colonoscopy Joselo NILL Start: 02-01-2007 Colonoscopy Joselo NILL Bilateral mastectomy Joselo NILL Biopsy of breast Joselo SCANLON L section Joselo SCANLON L Excision of cervical intervertebral disc Joselo SCANLONL Excision of lymph node Tony flori SCANLONL Comment on above: left inguinal Excision of salivary gland M marco SCANLONL Comment on above: x2 Granuloma (morpholog ic abnormality) Joselo SCANLONL Comment on above: x 2 History of radiofreq uency ablation operation for arrhythmia Joselo SCANLONL Total abdominal hyst erectomy with bilateral salpingo-oophorectomy Joselo SCANLONL Immunizations Immunization Date Immunization Notes Care Provider Fa cili 08-07-2022 SARS-CoV-2 (COVID-19 ) mRNA-1273 vaccine Joselo NILL [facility] [place] 01-01-2022 SARS-CoV-2 mRNA (kfndsknucnc-hdvm-lzxca se) vaccine Joselo NILL [facility] [place] 06-18-2021 SARS-CoV-2 (COVID-19 ) mRNA-1273 vaccine Joselo NILL [facility] [place] Comment on above: Result Comment: 2022: [id number] 10-30-2020 SARS-CoV-2 (COVID-19 ) mRNA-1273 vaccine Joselo STARKS [facility] [place] 10-02-2020 SARS-CoV-2 (COVID-19 ) mRNA-1273 vaccine Joselo STARKS [facility] Payers Date Payer Category Payer Unknown [id number] 2019 Unknown [id number] 1968 Unknown [id number] 2.16.84 0.1.163424.3.579.2.593 1968 Unknown [id number] 2.16.84 0.1.441495.3.579.2.593 1968 Unknown [id number] 2.16.84 0.1.484868.3.579.2.593 1968 Unknown [id number] 2.16.84 0.1.735587.3.579.2.593 1968 Unknown [id number] 2.16.84 0.1.553197.3.579.2.593 1968 Unknown [id number] 2.16.84 0.1.757202.3.579.2.593 1968 Unknown [id number] 2.16.84 0.1.399011.3.579.2.593 1968 Unknown [id number] 2.16.84 0.1.389808.3.579.2.593 1968 Unknown [id number] 2.16.84 0.1.942883.3.579.2.593 1968 Unknown [id number] 2.16.8 40.1.970255.3.579.2.727 1968 Unknown [id number] 2.16.8 40.1.649374.3.579.2.727 1968 Unknown [id number] 2.16.8 40.1.179291.3.579.2.727 1968 Unknown [id number] 2.16.84 0.1.167583.3.579.2.1259 1968 Unknown [id number] 2.16.840 .1.330790.3.579.2.1259 1959 Self-pay [id number] Unknown [id number] 2.16.84 0.1.355823.3.579.2.593 Social History Date Type Detail Facility Start: 03-03-2023 Tobacco smoking status Never s moked tobacco (finding) [facility] Tobacco smoking status Never [facility] [place] Sex Assigned At Female [facility] Functional Status Date Assessment Result Facility 03-03-2023 [...] seen with attending physician, Dr. Sun Josue [facility] Medical Student , MS3 There are no diagnoses linked to this encounter. No diagnosis found. No orders of the defined types were placed in this encounter. No results found for this or any previous visit (from the past 36 hour(s)). No follow-ups on file. [facility] 06-03-2023 Note Attestation signed by Tomas [...] past 36 hour(s)). No follow-ups on file. [facility] 03-03-2023 Note Chief Complaint consultation for [...] History of pericar (more content not included)... [facility] Comment on above: Result Comment: Elec tronically Signed By: RAUDEL PUENTES, Joselo Barrera\Date and Time Signed: 03/03/23 16:35 EDT 02-18-2023 Note Patient ID: Teetee Small is a 53 y.o. female. Primary oncologist: Dr Kat Hernandez Primary Care Provider: Mariza Wright MD Subjective Pt presents alone for annual follow up. 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 OncotypeDx score of 14-no systemic chemotherapy given. GENETIC TESTING, [facility] Multi-Cancer Panel: no pathogenic mutation identified. Diagnosis: 04/10/2013 Left breast biopsy - Invasive ductal CA, grade 1. DCIS, cribriform type. ER/SC + (>90%), HER-2/julio cesar-negative (ratio 1.2), T: 1c, N: 0, M: x, Oncotype DX score: 14 Treatment to date: Cancer surgery 05/17/2013 Left breast mastectomy with SLN biopsy - Invasive ductal CA, high grade, 1.1cm. 0/8 nodes positive. ER/SC + (4+), HER-2/julio cesar-negative (ratio 1.0). Margins [...] swelling, mass, skin change or tenderness. Comments: Neurosurgeon offered, declined No signs chest wall recurrence. [...] present. Mental Statu (more content not included)... [facility] 02-04-2023 Note PROCEDURE: XR SACROI LIAC JOINT 3 VIEWS COMPARISON: None. HISTORY: Rheumatoid factor positive rheumatoid arthritis FINDINGS: SACRUM: No fracture, disruption of the sacral ala line, or cortical irregularity. COCCYX: No fracture or suspicious alignment. SOFT TISSUES: No widening of the sacroiliac joints. No radiopaque foreign body. OTHER: IMPRESSION: No significant abnormality Electronically authenticated by: IDA SOTO Date: 2023-02-04 18:18 [facility] 02-04-2023 Note PROCEDURE: XR HIP LT 2 3V WO PELVIS COMPARISON: None. HISTORY: Rheumatoid factor positive rheumatoid arthritis FINDINGS: BONES:No acute fracture or dislocation. No significant degenerative changes. Heterotopic ossification superior to the greater trochanter SOFT TISSUES:Negative. No visible soft tissue swelling. EFFUSION:None visible. OTHER: Negative. IMPRESSION: No evidence of erosive or inflammatory arthritis Electronically authenticated by: IDA SOTO Date: 2023-02-04 18:17 [facility] 02-04-2023 Note PROCEDURE: XR FOOT R T MIN 3 VIEWS COMPARISON: None. HISTORY: Rheumatoid factor positive rheumatoid arthritis FINDINGS: BONES:No acute fracture or dislocation. Mild enthesopathic spurring of the calcaneus at the Achilles insertion. SOFT TISSUES:Negative. No visible soft tissue swelling. EFFUSION:None visible. OTHER: Negative. IMPRESSION: Mild calcaneal Achilles enthesopathy Electronically authenticated by: IDA SOTO Date: 2023-02-04 18:16 [facility] 01-29-2023 Note TB negative from 02/05 PA submitted via CMMs. Saira Kramer, Jessica, BCACP 02/26/23 2:43 PM [facility] [phone] [facility] 01-29-2023 Note LVM with pt to confi rm shipment from [facility]. F/U confirm shipment from [facility]. Goyo Winston, [facility] 03/26/2310:03 AM [facility] 01-29-2023 Note Called and spoke wit h the patient and she has not received medication yet, but the order has been placed from [facility]. We will F/U taco to make sure the medication was received. Melissa Arizmendi, [employer] 03/15/23 3:49 PM [facility] 01-29-2023 Note Supervising Physicia n & [...] results around Feb 26 2023. Eduard Tai, PharmD, BCACP, CSP 01/29/23 8:50 AM [facility] [phone] [facility] 01-29-2023 Note Called pt, she will contact [facility] soon to discuss filling. F/U check rx/shipment status next week Goyo Winston [facility] 231:12 PM [facility] 01-29-2023 Note Prior Authorization for [employer] has been approved 02/26/23-02/27/24. Case ID/Authorization Number:[id number] Must be filled at [facility], sending msg to MD for transfer. Calling pt to discuss filling at [facility]. LVM. F/U contact pt to discuss filling at [facility]. Goyo Winston [facility] 238:19 AM [facility] 01-29-2023 Note I called the patient to ensure that she has received his medication from [facility] and address any questions he may have, lvm. Kaleigh Rosas, [facility] 232:53 PM [facility] 01-29-2023 Note I called and spoke w ith the pt to confirm delivery and she has received medication with no follow up questions. 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 senior care current use of immunosuppressive drug Comprehensive metabolic [...] Scheduling Instructions: The phone number to contact [facility] Radiology is Once you have been placed into the phone tree, it will prompt with the (more content not included)... [facility] Evaluation + Plan note No data available for this section [facility] [place] [facility] Discharge instructions No data available for this section [facility] [place] Progress note No data available for this section [facility] [place] Summary Purpose Family History No Family History Records FoundNo Family History Records FoundNo Family History Records FoundNo Family History Records FoundNo Family History Records Found Advance Directives No Advanced Directives Records FoundNo Advanced Directives Records FoundNo Advanced Directives Records FoundNo Advanced Directives Records FoundNo Advanced Directives Records Found Additional Source Comments INFORMATION SOURCE (unrecogn ized section and content) DATE CREATED AUTHOR 03/16/2021 [facility] DATE CREATED AUTHOR AUTHOR'S ORGANIZ ATION 02/15/2023 [facility] DATE CREATED AUTHOR AUTHOR'S ORGANIZ ATION 04/08/2023 [facility] DATE CREATED AUTHOR AUTHOR'S ORGANIZ ATION 08/21/2023 [facility] DATE CREATED AUTHOR AUTHOR'S ORGANIZ ATION 10/30/2023 [facility] Patient Care team informatio n (unrecognized section and content) Personnel Name: Mariza Wright MD Address: Address: [address] [place] [address] Personnel Name: Mariza Wright MD Address: Address: [address] [place] [address] FOR RECORDS PERTAINING TO PATIENTS WHO ARE [...] BE BASED ON THE PRIMARY CLINICAL RECORDS. [facility]. provides no warranty or guarantee of the accuracy or completeness of information in this document.
[2023-11-20 09:10] LABS: HPV Aptima Negative (Negative); Pap IG (Image Guided) Note (.)
== END 2023-11-16 21:42 | disposition home or self-care (01) ==
LOC: LAB 21:41
PROVIDERS: PCP Family Medicine; Visit Provider Obstetrics & Gynecology
DX: R87.615 Unsatisfactory cytologic smear of cervix (principal)
CPT/HCPCS: 87624; G0145

== ENCOUNTER 2024-01-11 06:52 | Outpatient (REF) | payer BC, SELFPAY ==
--- OUTSIDE RECORDS SUMMARY | 2024-01-12 08:30 | XMS_ITS | CCD ---
Author Organization [facility] Care Team Providers Care Want Ad Supervisor Name Role Phone HOYLIBBYMARIZA Consulting Unavailable HOY, [...] Admitting Unavailable Hoy, Mariza Primary Care Physician [phone] Mariza Wright Referring Unavailable Joselo STARKS Attending Unavailable Joselo STARKS Attending Unavailable Joselo STARKS Attending Unavailable EYAL ALEGRIA Attending Unavailable TOMAS CLINTON I Attending Unavailable TOMAS CLINTON I Attending Unavailable ASHLEIGH ZEE Attending Unavailable Mariza Wright MD Primary Care Provider [phone] FELIX WHITNEY Attending Unavailable FELIX WHITNEY Attending Unavailable EASTON KEENE Attending Unavailable Allergies Allergy Classification Reported Allergen(s) Allergy Type Date of Onset Reaction(s) Facility (2 sources) Benzoyl Peroxide; Translations: [BENZOYL PEROXIDE] Drug Allergy 07-22-20 15 [facility] Repository (1 source) Desonide Drug Allergy 04-05-20 13 [facility] Repository (1 source) Sulfonamides (Antibiotic) Drug allergy (disorder) 04-05-20 13 [facility] Repository (1 source) Misc-Other; Translations: [Misc-Other] Propensity to adverse reactions (disorder) 07-22-20 15 [facility] Repository (3 sources) Sulfonamides (Antibiotic); Translations: [sulfa drugs] Drug allergy Discoloration of skin (finding) General [facility] (1 source) Adhesive agent; Translations: [ADHESIVE] Propensity to adverse reactions to drug (disorder) 09-21-[address] [facility] Repository (2 sources) Sulfamethoxazole / Trimethoprim; Translations: [SULFAMETHOXAZOLE-T RIMETHOPRIM] Drug Allergy 02-02-[address] [facility] Repository (1 source) Sulfonamides (Antibiotic); Translations: [SULFA (SULFONAMIDE ANTIBIOTICS)] Propensity to adverse reactions to drug (disorder) 09-21-[address] [facility] (1 source) ADHESIVE TAPE-SILICONES; Translations: [ADHESIVE TAPE-SILICONES] Propensity to adverse reactions to drug (disorder) 10-07-[address] 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] Onset: 08-25-2022 Episodic Other [...] Interpretation Reference Range Facility Follow-Upon 08-19-2023 Follow-Up [id number] Yamileth Small 1970 F Date Provider Department Center 08/19/2023 TOMAS ROBERTO I [facility] No family history on file Level of Service:16148 [place] OFFICE/OUTPATIENT ESTABLISHED MOD MDM 30-39 MIN Reason for Visit and Comments: Follow-up [574562] - Follow up [facility] Orders Onlyon 08-12-2023 Orders Only [id number] Yamileth Small 1970 F Date Provider Department Center 08/12/2023 [id number], HISTORICAL [facility] No family history on file [facility] 36on 08-10-2023 36 Left detailed messag e that labs were placed. Normal [facility] Orders Onlyon 08-10-2023 Orders Only [id number] Yamileth Small 1970 F Date Provider Department Cross 08/10/2023 TOMAS ROBERTO I [facility] No family history on file [facility] 36on 08-05-2023 36 Patient has an apt o n and is wondering if there are any labs she needs to do prior to her visit. Please advise. Thanks! [facility] 36 Patient called [facility] Follow-Upon 06-03-2023 Follow-Up [id number] Yamileth Small denysbarinelson 1970 F Date Provider Department Center 06/03/2023 [id number] TOMAS Osmin [facility] No family history on file Level of Service:30239 [place] OFFICE/OUTPATIENT ESTABLISHED MOD MDM 30-39 MIN () Reason for Visit and Comments: Follow-up [289357] - Follow up [facility] 36on 04-08-2023 36 Last visit pt instru cted to finish current supply and then stop [facility] Ambulatory Visit Summaryon 0 04-07-2023 [...] erythematosus Varicose veins of legs Normal [facility] General Surgery Office/Clini c Noteon [...] SARS-CoV-2 (COVID-19) mRNA-1273 vaccine 08/07/2022 Recorded SARSCoV2 mRNA([id number]) vac 01/01/2022 Recorded SARS-CoV-2 (COVID-19) mRNA-1273 vaccine 06/18/2021 Recorded 2023-02-26: TPV50 SARS-CoV-2 (COVID-19) mRNA-1273 vaccine 10/30/2020 Recorded SARS-CoV-2 (COVID-19) mRNA-1273 vaccine 10/02/2020 Recorded Normal [facility] Comment on above: Result Comment: Elec tronically Signed By: RAUDEL PUENTES, Joselo Barrera\Date and Time Signed: 04/07/23 14:01 EDT Reminderson 04-02-2023 Reminders - From: Cristal Gordon LPN To: GSN - Clinical; Sent: 04/02/2023 11:03:11 EDT Show up: 02/21/2033 07:00:00 EDT Subject: colonoscopy recall Due Date/Time: 03/24/2033 07:00:00 EDT Reminder/Recall Patient due for screening colonoscopy 03/24/2033. Normal [facility] Pathology Noteon 03-29-2023 Pathology Note [id number]#1.00CD:127 Normal [facility] Outside Colonoscopyon 2022 Outside Colonoscopy [id number]#1.00CD:127 [facility] Pre-Certification Formon Pre-Certification Form [id number]#1.00CD:127 [facility] Consent for Procedure/Surger yon 03-05-2023 Consent for Procedure/Surgery [id number]#1.00CD:127 [facility] Facesheeton 03-04-2023 Facesheet [id number]#1.00CD:127 [facility] Ambulatory Visit Summaryon 0 03-03-2023 [...] erythematosus Varicose veins of legs Normal [facility] RAD - CT Reporton 03-03-2023 RAD - CT Report [id number]#1.00CD:127 Normal [facility] Orders Onlyon 03-02-2023 Orders Only [id number] Yamileth Small 1970 F Date Provider Department Center 03/02/2023 355Lenore-EYAL ALEGRIA [facility] No family history on file Normal [facility] Physician Referralon 023 Physician Referral [id number]#1.00CD:127 Normal [facility] CT ABD/PELV W CONon 02-13-20 [...] by: IDA SOTO Date: 2023-02-12 09:54 Normal [facility] Orders Onlyon 02-08-2023 Orders Only [id number] Yamileth Small 1970 F Date Provider Department Center 02/08/2023 [id number], HISTORICAL [facility] MED [facility] No family history on file Normal [facility] QUANTIFERON TB GOLD PLUSon 0 02-07-2023 QuantiFERON Criteria Comment Normal [facility] Comment on above: Result Comment: Rehan [...] test. Performed By: #### Q NTTB #### [facility] [address] [place] [address] Dr. Jazmyn Saavedra QuantiFERON Incubation Incubation performed. Normal [facility] Comment on above: Performed By: #### Q NTTB #### [facility] [address] [place] [address] Dr. Jamzyn Saavedra QuantiFERON Mitogen Value 6.87 IU/mL Normal [facility] Comment on above: Performed By: #### Q NTTB #### [facility] [address] [place] [address] Dr. Jazmyn Saavedra QuantiFERON Nil Value 0.00 IU/mL Normal [facility] Comment on above: Performed By: #### Q NTTB #### [facility] [address] [place] [address] Dr. Jazmyn Saavedra QuantiFERON TB1 Ag Value 0.00 IU/mL Normal [facility] Comment on above: Performed By: #### Q NTTB #### [facility] [address] [place] [address] Dr. Jazmyn Saavedra QuantiFERON TB2 Ag Value 0.00 IU/mL Normal [facility] Comment on above: Performed By: #### Q NTTB #### [facility] [address] [place] [address] Dr. Jazmyn Saavedra QuantiFERON-TB Gold Plus Negative Normal Negative [facility] Comment on above: Result Comment: No r esponse to M tuberculosis antigens detected. Infection with M tuberculosis is unlikely, but high risk individuals should be considered for additional testing (ATS/IDSA/CDC Clinical Practice Guidelines, 2017). The reference range is an Antigen minus Nil result of <0.35 IU/mL. Chemiluminescence immunoassay methodology Performed By: #### Q NTTB #### [facility] [address] [place] [address] Dr. Jazmyn Saavedra HEP B COREon 02-06-2023 Hep B Core Ab, Tot Negative Normal Negative [facility] Comment on above: Performed By: #### S EDR #### [facility] [address] [address] [address] Jazmyn Saavedra HEP B SURFACE ANTIGEN SCREEN on 02-06-2023 HBsAg Screen Negative Normal Negative [facility] Comment on above: Performed By: #### H BSANS #### [facility] [address] [place] [address] Dr. Jazmyn Saavedra CBC AUTO DIFFon 02-05-2023 BASO # 0.0 103/ul Normal 0.0-0.1 [facility] Comment on above: Performed By: #### C BC #### [facility] [address] [place] [address] Dr. Jazmyn Saavedra Basophils/100 WBC (Bld) 0.5 % Normal 0.2-2.0 [facility] Comment on above: Performed By: #### C BC #### [facility] [address] [place] [address] Dr. Jazmyn Saavedra EO # 0.0 103/ul Normal 0.0-0.7 [facility] Comment on above: Performed By: #### C BC #### [facility] [address] [place] [address] Dr. Jazmyn Saavedra Eosinophils/100 WBC (Bld) 0.8 % Critically low 0.9-7.0 [facility] Comment on above: Performed By: #### C BC #### [facility] [address] [place] [address] Dr. Jazmyn Saavedra Erythrocyte distribution width (RBC) [Ratio] 13.2 % Normal 11.0-15.0 [facility] Comment on above: Performed By: #### C BC #### [facility] [address] [place] [address] Dr. Jazmyn Saavedra Hematocrit (Bld) [Volume fraction] 41.1 % Normal 36.0-48.0 [facility] Comment on above: Performed By: #### C BC #### [facility] [address] [place] [address] Dr. Jazmyn Saavedra Hemoglobin (Bld) [Mass/Vol] 13.4 g/dL Normal 12.0-16.0 [facility] Comment on above: Performed By: #### C BC #### [facility] [address] [place] [address] Dr. Jazmyn Saavedra IG # 0.01 10e3/ul Normal 0.00-0.03 [facility] Comment on above: Performed By: #### C BC #### [facility] [address] [place] [address] Dr. Jazmyn Saavedra IG % 0.3 % Normal 0.0-0.5 [facility] Comment on above: Performed By: #### C BC #### [facility] [address] [place] [address] Dr. Jazmyn Saavedra LYMPH # 1.2 103/ul Normal 1.2-3.8 [facility] Comment on above: Performed By: #### C BC #### [facility] [address] [place] [address] Dr. Jazmyn Saavedra Lymphocytes/100 WBC (Bld) 31.9 % Normal 20.5-60.0 [facility] Comment on above: Performed By: #### C BC #### [facility] [address] [place] [address] Dr. Jazmyn Saavedra MANUAL DIFF REQ NO Normal [facility] Comment on above: Performed By: #### C BC #### [facility] [address] [place] [address] Dr. Jazmyn Saavedra MCH (RBC) [Entitic mass] 30.6 pg Normal 26.7-34.0 [facility] Comment on above: Performed By: #### C BC #### [facility] [address] [place] [address] Dr. Jazmyn Saavedra MCHC (RBC) [Mass/Vol] 32.6 g/dL Normal 29.9-35.2 [facility] Comment on above: Performed By: #### C BC #### [facility] [address] [place] [address] Dr. Jazmyn Saavedra MCV (RBC) [Entitic vol] 93.8 fL Normal 81.0-99.0 [facility] Comment on above: Performed By: #### C BC #### [facility] [address] [place] [address] Dr. Jazmyn Saavedra MONO # 0.5 103/ul Normal 0.3-0.8 [facility] Comment on above: Performed By: #### C BC #### [facility] [address] [place] [address] Dr. Jazmyn Saavedra Monocytes/100 WBC (Bld) 14.1 % Critically high 1.7-12.0 [facility] Comment on above: Performed By: #### C BC #### [facility] [address] [place] [address] Dr. Jazmyn Saavedra NEUT # 1.9 103/ul Normal 1.4-6.5 [facility] Comment on above: Performed By: #### C BC #### [facility] [address] [place] [address] Dr. Jazmyn Saavedra Neutrophils/100 WBC (Bld) 52.4 % Normal 43.0-75.0 [facility] Comment on above: Performed By: #### C BC #### [facility] [address] [place] [address] Dr. Jazmyn Saavedra Platelet mean volume (Bld) [Entitic vol] 9.4 fL Critically low 9.5-13.5 [facility] Comment on above: Performed By: #### C BC #### [facility] [address] [place] [address] Dr. Jazmyn Saavedra PLT 342 103/ul Normal 150-450 [facility] Comment on above: Performed By: #### C BC #### [facility] [address] [place] [address] Dr. Jazmyn Saavedra RBC 4.38 106/ul Normal 4.20-5.40 [facility] Comment on above: Performed By: #### C BC #### [facility] [address] [place] [address] Dr. Jazmyn Saavedra WBC 3.7 103/ul Critically low 4.0-11.0 The [facility] Comment on above: Performed By: #### C BC #### [facility] [address] [place] [address] Dr. Jazmyn Saavedra FREE THYROXINE INDEX T7on FTI 3.20 Normal 1.30-4.50 [facility] Comment on above: Performed By: #### S EDR #### [facility] [address] [address] [address] Jazmyn Saavedra T3U 36.0 % Normal 30.0-39.0 [facility] Comment on above: Performed By: #### S EDR #### [facility] [address] [address] [address] Jazmyn Saavedra T4 [Mass/Vol] 8.90 ug/dL Normal 4.80-13.90 [facility] Comment on above: Performed By: #### S EDR #### [facility] [address] [place] [address] Dr. Jazmyn Saavedra GLYCOHEMOGLOBIN A1Con 2022 ADA RECOMMENDATION SEE BELOW Normal [facility] Comment on above: Result Comment: ADA RECOMMENDED LIMIT 4.0 - 6.0 ADA THERAPEUTIC TARGET < 7.0 ACTION SUGGESTED > 7.0 Performed By: #### S EDR #### [facility] [address] [address] [address] Jazmyn Saavedra Glucose [Mass/Vol] 123 mg/dL Normal [facility] Comment on above: Performed By: #### S EDR #### [facility] [address] [place] [address] Dr. Jazmyn Saavedra HbA1c (Bld) [Mass fraction] 5.9 % Normal 4.5-6.2 [facility] Comment on above: Performed By: #### S EDR #### [facility] [address] [place] [address] Dr. Jazmyn Saavedra LIPID PROFILEon 02-05-2023 CHOL-HDL RATIO NORM SEE BELOW Normal [facility] Comment on above: Result Comment: 3.3 - 4.4 LOW RISK 4.4 - 7.1 AVERAGE RISK 7.1 - 11.0 MODERATE RISK >11.0 HIGH RISK Performed By: #### S EDR #### [facility] [address] [place] [address] Dr. Jazmyn Saavedra Cholesterol [Mass/Vol] 256 mg/dL Critically high <=200 [facility] Comment on above: Performed By: #### S EDR #### [facility] [address] [address] [address] Jazmyn Saavedra Cholesterol in HDL [Mass/Vol] 108 mg/dL Critically high 40-60 [facility] Comment on above: Performed By: #### S EDR #### [facility] [address] [address] [address] Jazmyn Saavedra Cholesterol in LDL [Mass/Vol] 139.4 mg/dL Normal [facility] Comment on above: Performed By: #### S EDR #### [facility] [address] [address] [address] Jazmyn Saavedra Cholesterol.total/ Cholesterol in HDL [Mass ratio] 2.4 {ratio} Normal [facility] Comment on above: Performed By: #### S EDR #### [facility] [address] [address] [address] Jazmyn Saavedra HDL NORMAL > or = 60 mg/dl - LO W CARDIOVASCULAR RISK <40 mg/dl - HIGH CARDIOVASCULAR RISK Normal [facility] Comment on above: Performed By: #### S EDR #### [facility] [address] [address] [address] Jazmyn Saavedra LDL CALC NORMAL SEE BELOW Normal [facility] Comment on above: Result Comment: <100 mg/dl OPTIMAL 100 - 129 mg/dl NEAR OR ABOVE OPTIMAL 130 - 159 mg/dl BORDERLINE HIGH 160 - 189 mg/dl HIGH >190 mg/dl VERY HIGH Performed By: #### S EDR #### [facility] [address] [address] [address] Jazmyn Saavedra Triglyceride [Mass/Vol] 43 mg/dL Normal <=150 [facility] Comment on above: Performed By: #### S EDR #### [facility] [address] [address] [address] Jazmyn Saavedra VLDL CALC 8.6 mg/dL Normal [facility] Comment on above: Performed By: #### S EDR #### [facility] [address] [address] [address] Jazmyn Saavedra Orders Onlyon 02-05-2023 Orders Only [id number] Yamileth Small 1970 F Date Provider Department Center 02/05/2023 [id number], HISTORICAL C PHYS MED [facility] No family history on file Normal [facility] PROF 14(COMP METB)on 023 Albumin [Mass/Vol] 4.0 g/dL Normal 3.4-5.0 [facility] Comment on above: Performed By: #### T 7, CMP, LIPID, TSH #### [facility] [address] [address] [address] Jazmyn Saavedra Albumin/Globulin [Mass ratio] 0.9 {ratio} Normal [facility] Comment on above: Performed By: #### T 7, CMP, LIPID, TSH #### [facility] [address] [address] [address] Jazmyn Saavedra ALP [Catalytic activity/Vol] 57 U/L Normal 46-116 [facility] Comment on above: Performed By: #### T 7, CMP, LIPID, TSH #### [facility] [address] [address] [address] Jazmyn Saavedra ALT [Catalytic activity/Vol] 23 U/L Normal 14-59 [facility] Comment on above: Performed By: #### T 7, CMP, LIPID, TSH #### [facility] [address] [address] [address] Jazmyn Saavedra Anion gap [Moles/Vol] 13.8 mmol/L Normal [facility] Comment on above: Performed By: #### T 7, CMP, LIPID, TSH #### [facility] [address] [address] [address] Jazmyn Savaedra AST [Catalytic activity/Vol] 23 U/L Normal 15-37 [facility] Comment on above: Performed By: #### T 7, CMP, LIPID, TSH #### [facility] [address] [address] [address] Jazmyn Saavedra Bilirubin [Mass/Vol] 0.6 mg/dL Normal 0.2-1.0 [facility] Comment on above: Performed By: #### T 7, CMP, LIPID, TSH #### [facility] [address] [place] [address] Dr. Jazmyn Saavedra Calcium [Mass/Vol] 9.6 mg/dL Normal 8.5-10.1 [facility] Comment on above: Performed By: #### T 7, CMP, LIPID, TSH #### [facility] [address] [place] [address] Dr. Jazmyn Saavedra Chloride [Moles/Vol] 100 mmol/L Normal 98-107 [facility] Comment on above: Performed By: #### T 7, CMP, LIPID, TSH #### [facility] [address] [place] [address] Dr. Jazmyn Saavedra CO2 [Moles/Vol] 29.9 mmol/L Normal 21.0-32.[address] [facility] Comment on above: Performed By: #### T 7, CMP, LIPID, TSH #### [facility] [address] [place] [address] Dr. Jazmyn Saavedra Creatinine [Mass/Vol] 0.89 mg/dL Normal 0.55-1.02 [facility] Comment on above: Performed By: #### T 7, CMP, LIPID, TSH #### [facility] [address] [place] [address] Dr. Jazmyn Saavedra EGFR-AF GAMBIAN >60 Normal >=[address] [facility] Comment on above: Performed By: #### T 7, CMP, LIPID, TSH #### [facility] [address] [place] [address] Dr. Jazmyn Saavedra EGFR-NON AF GAMBIAN >60 Normal >=60 [facility] Comment on above: Performed By: #### T 7, CMP, LIPID, TSH #### [facility] [address] [place] [address] Dr. Jazmyn Saavedra Globulin (S) [Mass/Vol] 4.4 g/dL Normal [facility] Comment on above: Performed By: #### T 7, CMP, LIPID, TSH #### [facility] [address] [place] [address] Dr. Jazmyn Saavedra Glucose [Mass/Vol] 89 mg/dL Normal 74-106 [facility] Comment on above: Performed By: #### T 7, CMP, LIPID, TSH #### [facility] [address] [address] [address] Jazmyn Saavedra Potassium [Moles/Vol] 3.7 mmol/L Normal 3.5-5.1 [facility] Comment on above: Performed By: #### T 7, CMP, LIPID, TSH #### [facility] [address] [address] [address] Jazmyn Saavedra Protein [Mass/Vol] 8.4 g/dL Critically high 6.4-8.2 [facility] Comment on above: Performed By: #### T 7, CMP, LIPID, TSH #### [facility] [address] [address] [address] Jazmyn Saavedra Sodium [Moles/Vol] 140 mmol/L Normal 136-145 [facility] Comment on above: Performed By: #### T 7, CMP, LIPID, TSH #### [facility] [address] [place] [address] Dr. Jazmyn Saavedra Urea nitrogen [Mass/Vol] 17.0 mg/dL Normal 7.0-18.0 [facility] Comment on above: Performed By: #### T 7, CMP, LIPID, TSH #### [facility] [address] [address] [address] Jazmyn Saavedra Urea nitrogen/Creatinin e [Mass ratio] 19.1 mg/mg Normal [facility] Comment on above: Performed By: #### T 7, CMP, LIPID, TSH #### [facility] [address] [address] [address] Jazmyn Saavedra TSHon 02-05-2023 TSH 0.984 uIU/mL Normal 0.358-3.740 [facility] Comment on above: Performed By: #### S EDR #### [facility] [address] [address] [address] Jazmyn Saavedra Documentationon 01-29-2023 Documentation [id number] Yamileth Small 1970 F Date Provider Department Center 01/29/2023 [facility] No family history on file Reason for Visit and Comments: Specialty Pharmacy Note: [facility] Prescription [Other] [facility] Follow-Upon 01-28-2023 Follow-Up [id number] Yamileth Small 1970 F Date Provider Department Center 01/28/2023 Mary Alice-JAYEYAL HEREDIA [facility] No family history on file Level of Service:98341 [place] OFFICE/OUTPATIENT ESTABLISHED MOD MDM 30-39 MIN (GC) Normal [facility] PAP ACOG PANEL 2: 30 to 65on 10-07-2022 . . Normal [facility] Comment on above: Result Comment: Perf ormed at: [facility] Performed By: #### S EDR #### [facility] [address] [place] [address] Dr. Jazmyn Saavedra Age Gdln ACOG Testing 30-65 Normal [facility] Comment on above: Performed By: #### S EDR #### [facility] [address] [address] [address] Jazmyn Saavedra DIAGNOSIS: Comment Normal [facility] Comment on above: Result Comment: NEGA TIVE FOR INTRAEPITHELIAL LESION OR MALIGNANCY. Performed at: [facility] Performed By: #### S EDR #### [facility] [address] [address] [address] Jazmyn Saavedra HPV Aptima Negative Normal Negative [facility] Comment on above: Result Comment: This nucleic acid amplification test detects fourteen high-risk HPV types (16,18,31,33,35,39,45,51,52,56,58,59,66,68) without differentiation. Performed at: =G Performed By: #### S EDR #### [facility] [address] [address] [address] Jazmyn Saavedra HPV Genotype Reflex Comment Normal [facility] Comment on above: Result Comment: Crit eria not met, HPV Genotype not performed. Performed at: [facility] Performed By: #### S EDR #### [facility] [address] [place] [address] Dr. Jazmyn Saavedra Methodology: Comment Normal [facility] Comment on above: Result Comment: This liquid based ThinPrep(R) pap test was screened with the use of an image guided system. Performed at: WB Performed By: #### S EDR #### [facility] [address] [place] [address] Dr. Jazmyn Saavedra Note: Comment Normal [facility] Comment on above: Result Comment: The [...] WB Performed By: #### S EDR #### [facility] [address] [place] [address] Dr. Jazmyn Saavedra Performed by: Comment Normal [facility] Comment on above: Result Comment: Daryl Calhoun, [employer] (ASCP) Performed at: [facility] Performed By: #### S EDR #### [facility] [address] [place] [address] Dr. Jazmyn Saavedra Specimen adequacy: Comment Normal [facility] Comment on above: Result Comment: Sati sfactory for evaluation. Endocervical component may not be distinguished in cases of atrophy. Performed at: [facility] Performed By: #### S EDR #### [facility] [address] [place] [address] Dr. Jazmyn Saavedra Orders Onlyon 08-31-2022 Orders Only [id number] Yamileth Small 1970 F Date Provider Department Center 08/31/2022 [id number], HISTORICAL [facility] No family history on file Normal [...] GILBERT GEORGE Date: 2022-08-28 08:47 Normal [facility] CBC AUTO DIFFon 08-25-2022 BASO # 0.0 103/ul Normal 0.0-0.1 [facility] Comment on above: Performed By: #### S EDR #### [facility] [address] [place] [address] Dr. Jazmyn Saavedra Basophils/100 WBC (Bld) 0.5 % Normal 0.2-2.0 [facility] Comment on above: Performed By: #### S EDR #### [facility] [address] [address] [address] Jazmyn Saavedra EO # 0.1 103/ul Normal 0.0-0.7 [facility] Comment on above: Performed By: #### S EDR #### [facility] [address] [address] [address] Jazmyn Saavedra Eosinophils/100 WBC (Bld) 1.2 % Normal 0.9-7.0 [facility] Comment on above: Performed By: #### S EDR #### [facility] [address] [place] [address] Dr. Jazmyn Saavedra Erythrocyte distribution width (RBC) [Ratio] 13.2 % Normal 11.0-15.0 [facility] Comment on above: Performed By: #### S EDR #### [facility] [address] [place] [address] Dr. Jazmyn Saavedra Hematocrit (Bld) [Volume fraction] 38.4 % Normal 36.0-48.0 [facility] Comment on above: Performed By: #### S EDR #### [facility] [address] [place] [address] Dr. Jazmyn Saavedra Hemoglobin (Bld) [Mass/Vol] 12.6 g/dL Normal 12.0-16.0 [facility] Comment on above: Performed By: #### S EDR #### [facility] [address] [place] [address] Dr. Jazmyn Saavedra IG # 0.01 10e3/ul Normal 0.00-0.03 [facility] Comment on above: Performed By: #### S EDR #### [facility] [address] [place] [address] Dr. Jazmyn Saavedra IG % 0.2 % Normal 0.0-0.5 [facility] Comment on above: Performed By: #### S EDR #### [facility] [address] [place] [address] Dr. Jazmyn Saavedra LYMPH # 1.7 103/ul Normal 1.2-3.8 [facility] Comment on above: Performed By: #### S EDR #### [facility] [address] [place] [address] Dr. Jazmyn Saavedra Lymphocytes/100 WBC (Bld) 40.8 % Normal 20.5-60.0 [facility] Comment on above: Performed By: #### S EDR #### [facility] [address] [place] [address] Dr. Jazmyn Saavedra MANUAL DIFF REQ NO Normal [facility] Comment on above: Performed By: #### S EDR #### [facility] [address] [place] [address] Dr. Jazmyn Saavedra MCH (RBC) [Entitic mass] 31.0 pg Normal 26.7-34.0 [facility] Comment on above: Performed By: #### S EDR #### [facility] [address] [place] [address] Dr. Jazmyn Saavedra MCHC (RBC) [Mass/Vol] 32.8 g/dL Normal 29.9-35.2 [facility] Comment on above: Performed By: #### S EDR #### [facility] [address] [address] [address] Jazmyn Saavedra MCV (RBC) [Entitic vol] 94.3 fL Normal 81.0-99.0 [facility] Comment on above: Performed By: #### S EDR #### [facility] [address] [address] [address] Jazmyn Saavedra MONO # 0.5 103/ul Normal 0.3-0.8 [facility] Comment on above: Performed By: #### S EDR #### [facility] [address] [address] [address] Jazmyn Saavedra Monocytes/100 WBC (Bld) 11.9 % Normal 1.7-12.0 [facility] Comment on above: Performed By: #### S EDR #### [facility] [address] [place] [address] Dr. Jazmyn Saavedra NEUT # 1.9 103/ul Normal 1.4-6.5 [facility] Comment on above: Performed By: #### S EDR #### [facility] [address] [address] [address] Jazmyn Saavedra Neutrophils/100 WBC (Bld) 45.4 % Normal 43.0-75.0 [facility] Comment on above: Performed By: #### S EDR #### [facility] [address] [address] [address] Jazmyn Saavedra Platelet mean volume (Bld) [Entitic vol] 9.3 fL Critically low 9.5-13.5 [facility] Comment on above: Performed By: #### S EDR #### [facility] [address] [place] [address] Dr. Jazmyn Saavedra PLT 309 103/ul Normal 150-450 [facility] Comment on above: Performed By: #### S EDR #### [facility] [address] [address] [address] Jazmyn Saavedra RBC 4.07 106/ul Critically low 4.20-5.40 [facility] Comment on above: Performed By: #### S EDR #### [facility] [address] [address] [address] Jazmyn Saavedra WBC 4.2 103/ul Normal 4.0-11.0 [facility] Comment on above: Performed By: #### S EDR #### [facility] [address] [address] [address] Jazmyn Saavedra CRPon 08-25-2022 CRP [Mass/Vol] mg/L Normal <=1.0 [facility] Comment on above: Performed By: #### C RP, CMP, LIPID #### [facility] [address] [address] [address] Jazmyn Saavedra LIPID PROFILEon 08-25-2022 CHOL-HDL RATIO NORM SEE BELOW Normal [facility] Comment on above: Result Comment: 3.3 - 4.4 LOW RISK 4.4 - 7.1 AVERAGE RISK 7.1 - 11.0 MODERATE RISK >11.0 HIGH RISK Performed By: #### C RP, CMP, LIPID #### [facility] [address] [address] [address] Jazmyn Saavedra Cholesterol [Mass/Vol] 251 mg/dL Critically high <=200 [facility] Comment on above: Performed By: #### C RP, CMP, LIPID #### [facility] [address] [address] [address] Jazmyn Saavedra Cholesterol in HDL [Mass/Vol] 102 mg/dL Critically high 40-60 [facility] Comment on above: Performed By: #### C RP, CMP, LIPID #### [facility] [address] [address] [address] Jazmyn Saavedra Cholesterol in LDL [Mass/Vol] 135.0 mg/dL Normal [facility] Comment on above: Performed By: #### C RP, CMP, LIPID #### [facility] [address] [place] [address] Dr. Jazmyn Saavedra Cholesterol.total/ Cholesterol in HDL [Mass ratio] 2.5 {ratio} Normal [facility] Comment on above: Performed By: #### C RP, CMP, LIPID #### [facility] [address] [address] [address] Jazmyn Saavedra HDL NORMAL > or = 60 mg/dl - LO W CARDIOVASCULAR RISK <40 mg/dl - HIGH CARDIOVASCULAR RISK Normal [facility] Comment on above: Performed By: #### C RP, CMP, LIPID #### [facility] [address] [address] [address] Jazmyn Saavedra LDL CALC NORMAL SEE BELOW Normal [facility] Comment on above: Result Comment: <100 mg/dl OPTIMAL 100 - 129 mg/dl NEAR OR ABOVE OPTIMAL 130 - 159 mg/dl BORDERLINE HIGH 160 - 189 mg/dl HIGH >190 mg/dl VERY HIGH Performed By: #### C RP, CMP, LIPID #### [facility] [address] [address] [address] Jazmyn Saavedra Triglyceride [Mass/Vol] 70 mg/dL Normal <=150 [facility] Comment on above: Performed By: #### C RP, CMP, LIPID #### [facility] [address] [address] [address] Jazmyn Saavedra VLDL CALC 14.0 mg/dL Normal [facility] Comment on above: Performed By: #### C RP, CMP, LIPID #### [facility] [address] [address] [address] Jazmyn Saavedra Orders Onlyon 08-25-2022 Orders Only [id number] DavidYamileth pattennelson 1970 F Date Provider Department Cross 08/25/2022 [id number], HISTORICAL [facility] No family history on file Normal [facility] PROF 14(COMP METB)on 022 Albumin [Mass/Vol] 3.9 g/dL Normal 3.4-5.0 [facility] Comment on above: Performed By: #### C RP, CMP, LIPID #### [facility] [id number] Jazmyn Saavedra Albumin/Globulin [Mass ratio] 1.0 {ratio} Normal [facility] Comment on above: Performed By: #### C RP, CMP, LIPID #### [facility] [address] [address] [address] Jazmyn Saavedra ALP [Catalytic activity/Vol] 49 U/L Normal 46-116 [facility] Comment on above: Performed By: #### C RP, CMP, LIPID #### [facility] [address] [place] [address] Dr. Jazmyn Saavedra ALT [Catalytic activity/Vol] 17 U/L Normal 14-59 [facility] Comment on above: Performed By: #### C RP, CMP, LIPID #### [facility] [address] [place] [address] Dr. Jazmyn Saavedra Anion gap [Moles/Vol] 10.1 mmol/L Normal [facility] Comment on above: Performed By: #### C RP, CMP, LIPID #### [facility] [address] [place] [address] Dr. Jazmyn Saavedra AST [Catalytic activity/Vol] 19 U/L Normal 15-37 [facility] Comment on above: Performed By: #### C RP, CMP, LIPID #### [facility] [address] [place] [address] Dr. Jazmyn Saavedra Bilirubin [Mass/Vol] 0.5 mg/dL Normal 0.2-1.0 [facility] Comment on above: Performed By: #### C RP, CMP, LIPID #### [facility] [address] [place] [address] Dr. Jazmyn Saavedra Calcium [Mass/Vol] 9.3 mg/dL Normal 8.5-10.1 [facility] Comment on above: Performed By: #### C RP, CMP, LIPID #### [facility] [address] [place] [address] Dr. Jazmyn Saavedra Chloride [Moles/Vol] 103 mmol/L Normal 98-107 [facility] Comment on above: Performed By: #### C RP, CMP, LIPID #### [facility] [address] [place] [address] Dr. Jazmyn Saavedra CO2 [Moles/Vol] 30.1 mmol/L Normal 21.0-32.0 [facility] Comment on above: Performed By: #### C RP, CMP, LIPID #### [facility] [address] [place] [address] Dr. Jazmny Saavedra Creatinine [Mass/Vol] 0.80 mg/dL Normal 0.55-1.02 [facility] Comment on above: Performed By: #### C RP, CMP, LIPID #### [facility] [address] [address] [address] Jazmyn Saavedra EGFR-AF GAMBIAN >60 Normal >=60 [facility] Comment on above: Performed By: #### C RP, CMP, LIPID #### [facility] [address] [address] [address] Jazmyn Saavedra EGFR-NON AF GAMBIAN >60 Normal >=60 [facility] Comment on above: Performed By: #### C RP, CMP, LIPID #### [facility] [address] [address] [address] Jazmyn Saavedra Globulin (S) [Mass/Vol] 4.1 g/dL Normal [facility] Comment on above: Performed By: #### C RP, CMP, LIPID #### [facility] [address] [address] [address] Jazmyn Saavedra Glucose [Mass/Vol] 92 mg/dL Normal 74-106 [facility] Comment on above: Performed By: #### C RP, CMP, LIPID #### [facility] [address] [place] [address] Dr. Jazmyn Saavedra Potassium [Moles/Vol] 4.2 mmol/L Normal 3.5-5.1 [facility] Comment on above: Performed By: #### C RP, CMP, LIPID #### [facility] [address] [place] [address] Dr. Jazmyn Saavedra Protein [Mass/Vol] 8.0 g/dL Normal 6.4-8.2 [facility] Comment on above: Performed By: #### C RP, CMP, LIPID #### [facility] [address] [place] [address] Dr. Jazmyn Saavedra Sodium [Moles/Vol] 139 mmol/L Normal 136-145 [facility] Comment on above: Performed By: #### C RP, CMP, LIPID #### [facility] [address] [place] [address] Dr. Jazmyn Saavedra Urea nitrogen [Mass/Vol] 20.0 mg/dL Critically high 7.0-18.0 [facility] Comment on above: Performed By: #### C RP, CMP, LIPID #### [facility] [address] [place] [address] Dr. Jazmyn Saavedra Urea nitrogen/Creatinin e [Mass ratio] 25.0 mg/mg Normal [facility] Comment on above: Performed By: #### C RP, CMP, LIPID #### [facility] [address] [place] [address] Dr. Jazmyn Saavedra SED RATE [facility] 2021 SED RATE 47 mm/hr Critically high <=30 [facility] Comment on above: Performed By: #### S EDR #### [facility] [address] [place] [address] Dr. Jazmyn Saavedra ASYMPTOMATIC COVID-19 ANTIGE Non 05-18-2022 EUA Statement SEE BELOW Normal [facility] Comment on above: Result Comment: This test [...] sooner. Performed By: #### S EDR #### [facility] [address] [place] [address] Dr. Jazmyn Saavedra SARS-CoV-2 (COVID-19) RNA NILES+probe Ql (Unsp spec) Positive Critically abnormal NEGATIVE [facility] Comment on above: Result Comment: SARS -CoV-2 antigen present; does not rule out coinfection with other pathogens. Performed By: #### S EDR #### [facility] [address] [place] [address] Dr. Jazmyn Saavedra Covid-19 PCR ([facility])on SARS-CoV-2 (COVID-19) RNA NILES+probe Ql (Unsp spec) Detected Critically abnormal NOT DETECTED [facility] Comment on above: Result Comment: This test is not yet approved or cleared by the [place] FDA. When there are no FDA-approved or cleared tests available, and other criteria are met, FDA can make tests available under an emergency access mechanism called an Emergency Use Authorization (EUA). The EUA for this test is supported by the [employer] of Health and Human Service's declaration that [...] used). Performed By: #### C VDTBH #### [facility] [address] [address] [address] Jazmyn BARLOW MULTI-CANCER PANELon 02-12-2021 RESULT Results to be mailed directly to physician's office by reference lab. Normal [facility] Comment on above: Result Comment: Test performed by [employer] [address] [place] [address] [id number] No result expected. For billing and tracking purposes only. Performed By: #### 3 1846 #### [facility] [address] Vital Signs Date Time Vital Sign Value Performing Clinician Facility 11-16-2023 11:39-0500 Body mass index (BMI) [Ratio] 24.96 kg/m2 [employer] DO Work Phone: [facility] 11-16-2023 11:39-0500 Body weight 68.04 kg [employer] Work Phone: [facility] 11-16-2023 11:39-0500 Diastolic blood pressure 72 mm[Hg] Easton Ajssi DO Work Phone: [facility] 11-16-2023 11:39-0500 Systolic blood pressure 118 mm[Hg] Easton Jassi DO Work Phone: [facility] 03-03-2023 14:35-0400 Blood Pressure Location Joselo NILL [facility] 03-03-2023 14:35-0400 Diastolic blood pressure 68 mm[Hg] Joselo NILL [facility] 03-03-2023 14:35-0400 Heart rate 68 /min Joselo NILL [facility] 03-03-2023 14:35-0400 Respiratory rate 16 /min Joselo NILL [facility] 03-03-2023 14:35-0400 Systolic blood pressure 114 mm[Hg] Joselo NILL General [facility] Encounters Encounter Date Encounter Type Care Provider Facility Start: 11-16-2023 End: 11-16-2023 ambulatory EASTON KEENE Not Available Start: 11-16-2023 End: 11-16-2023 Postop follow up visit related to original px Easton Jassi DO Work Phone: [facility] Comment on above: Encounter for repeat Pap smear due to previous insuff cervical cells Start: 10-28-2023 End: 10-28-2023 ambulatory FELIX WHITNEY Not Available Start: 09-29-2023 End: 09-29-2023 ambulatory FELIX WHITNEY Not Available Start: 08-19-2023 End: 08-19-2023 ambulatory TOMAS Solorio [facility] Start: 06-03-2023 End: 06-03-2023 ambulatory TOMAS Solorio [facility] Start: 04-07-2023 End: 04-08-2023 ambulatory Joselo STARKS Facility:[facility] Start: 04-07-2023 End: 04-07-2023 Patient encounter procedure Joselo STARKS [facility] Start: 03-24-2023 End: 03-25-2023 ambulatory Joselo STARKS Facility:CD:[id number] Start: 03-03-2023 End: 03-04-2023 ambulatory Mariza Hoy Facility: [facility] Start: 03-03-2023 End: 03-03-2023 Patient encounter procedure Joselo STARKS General Surgery N[facility] Start: 02-18-2023 ambulatory ASHLEIGH [facility] Start: 02-18-2023 ambulatory Mariza Hoy Facility:[facility] Start: 02-12-2023 Encounter for genera l adult medical examination without abnormal findings MARIZA HOY [facility] Start: 02-12-2023 End: 02-13-2023 ambulatory MARIZA WRIGHT Facility:[facility] Start: 02-05-2023 End: 02-06-[address] DOCTOR KELLOGG Facility:[facility] Start: 02-05-2023 End: 02-06-2023 Encounter for general adult medical examination without abnormal findings MARIZA HOY Facility:[facility] Start: 02-04-2023 End: 02-05-[address] IDA SOTO Facility:[facility] Start: 01-28-2023 End: 01-28-2023 [facility] Start: 09-23-2022 End: 09-23-[address] [...] TOMAS CLINTON Start: 03-24-2023 Colonoscopy [facility] Work Phone: Start: 03-24-2023 Colonoscopy Joselo STARKS [employer] Start: 03-24-2023 Esophagogastroduodenoscopy [facility] Start: 09-23-2022 Microscopic observation [Identifier] in Cervix by Cyto stain [facility] Work Phone: Start: 07-24-2015 Colonoscopy Joselo STARKS [employer] Start: 02-01-2007 Colonoscopy [facility] Bilateral mastectomy [facility]elo [facility] Biopsy of breast Joselo SCANLON [facility] section Joselo SCANLON [facility] Excision of cervical intervertebral disc Joselo [employer] Excision of lymph node Tony flori [facility] Comment on above: left inguinal Excision of salivary gland M marco [facility] Comment on above: x2 Granuloma (morpholog ic abnormality) Joselo [facility] Comment on above: x 2 History of radiofreq uency ablation operation for arrhythmia Joselo Profex Total abdominal hyst erectomy with bilateral salpingo-oophorectomy Joselo Profex Plan of Treatment Date Care Activity Detail Author Start: 03-24-2033 Screening for malign ant neoplasm of colon [facility] Start: 09-23-2027 Screening for malign ant neoplasm of cervix [facility] Start: 01-27-2025 Screening for malign ant neoplasm of colon FIT-DNA [facility] Start: 11-20-2024 End: 11-20-2024 Patient encounter procedure 11/20/2024 4:00 PM EST Office Visit [facility] [address] [place] [id number] Easton Keene, DO [address] [place] [address] [place] [address] [facility] Start: 06-04-2023 Influenza vaccination Influenza Vacc ine (#1) [facility] Start: 2008 Screening for malign ant neoplasm of breast Mammogram [facility] Start: 1968 Screening for malign ant neoplasm of colon [facility] Immunizations Immunization Date Immunization Notes Care Provider Fa cility 08-07-2022 SARS-CoV-2 (COVID-19 ) mRNA-1273 vaccine Joselo RAUEDL [facility] 01-01-2022 SARS-CoV-2 mRNA (qvnuwoqzxei-ulft-lwmuu se) vaccine Joselo GHISLAINEL [facility] 06-18-2021 SARS-CoV-2 (COVID-19 ) mRNA-1273 vaccine Joselo SCANLONL [facility] Comment on above: Result Comment: 2022: [id number] 10-30-2020 SARS-CoV-2 (COVID-19 ) mRNA-1273 vaccine Joselo SCANLONL [facility] 10-02-2020 SARS-CoV-2 (COVID-19 ) mRNA-1273 vaccine Joselo SCANLONL [facility] Payers Date Payer Category Payer Unknown [id number] 2022 Unknown BCBS BCBS [id number] [id number] 2022-Present [phone] [address] [place] [address] [id number] 2019 Unknown [id number] 1970 Unknown [id number] [id number] 1970 Unknown [id number] 2.16.840.1.306730.3.579.2.593 1970 Unknown [id number] 2.16.840.1.018667.3.579.2.593 1970 Unknown [id number] 2.16.840.1.349600.3.579.2.593 1970 Unknown [id number] 2.16.840.1.368425.3.579.2.593 1970 Unknown [id number] 2.16.840.1.040891.3.579.2.593 1970 Unknown [id number] 2.16.840.1.230911.3.579.2.593 1970 Unknown [id number] 2.16.840.1.645261.3.579.2.593 1968 Unknown [id number] 2.16.840.1.882755.3.579.2.593 1970 Unknown [id number] 2.16.840.1.102871.3.579.2.727 1970 Unknown [id number] 2.16.840.1.480882.3.579.2.727 1968 Unknown [id number] 2.16.840.1.040658.3.579.2.727 1968 Unknown [id number] 2.16.840.1.887414.3.579.2.1259 1970 Unknown [id number] 2.16.840.1.518244.3.579.2.1259 1970 Unknown [id number] 2.16.840.1.792523.3.579.2.1259 1961 Self-pay [id number] Unknown [id number] 2.16.840.1.200970.3.579.2.593 Social History Date Type Detail Facility Start: 03-03-2023 End: 09-24-2023 Tobacco smoking status Never smoked tobacco (finding) [facility] Tobacco smoking status Never [facility] Start: 09-24-2023 Sex Assigned At Female F [facility] Start: 10-28-2023 Alcohol intake Current drinke r [...] Facility 03-03-2023 Functional Status N/A General [facility] Clinical Notes 01-28-2023 to 11-16-2023 Easton [...] Easton Keene DO documented in this encounter [facility] 08-19-2023 Note Attestation signed by Tomas [...] seen with attending physician, Dr. Oz Josue [facility] Student , MS3 There are no [...] of pericar (more content not included)... [facility] Comment on above: Result Comment: Elec tronically Signed By: RAUDEL PUENTES, Joselo Barrera\Date and Time Signed: 03/03/23 16:35 EDT 02-18-2023 Note Patient ID: Teetee Small is a 53 y.o. female. Primary oncologist: Dr Kat Hernandez Primary Care Provider: Mariza Wright MD Subjective Pt presents alone for annual follow up. 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 OncotypeDx score of 14-no systemic chemotherapy given. GENETIC TESTING, [facility] Multi-Cancer Panel: no pathogenic mutation identified. Diagnosis: 04/10/2013 Left breast biopsy - Invasive ductal CA, grade 1. DCIS, cribriform type. ER/VT + (>90%), HER-2/julio cesar-negative (ratio 1.2), T: 1c, N: 0, M: x, Oncotype DX score: 14 Treatment to date: Cancer surgery 05/17/2013 Left breast mastectomy with SLN biopsy - Invasive ductal CA, high grade, 1.1cm. 0/8 nodes positive. ER/VT + (4+), HER-2/julio cesar-negative (ratio 1.0). Margins [...] swelling, mass, skin change or tenderness. 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 [...] by: IDA SOTO Date: 2023-02-04 18:18 [facility] 02-04-2023 Note PROCEDURE: XR HIP LT [...] by: IDA SOTO Date: 2023-02-04 18:17 [facility] 02-04-2023 Note PROCEDURE: XR FOOT R T MIN 3 VIEWS COMPARISON: None. HISTORY: Rheumatoid factor positive rheumatoid arthritis FINDINGS: BONES:No acute fracture or dislocation. Mild enthesopathic spurring of the calcaneus at the Achilles insertion. SOFT TISSUES:Negative. No visible soft tissue swelling. EFFUSION:None visible. OTHER: Negative. IMPRESSION: Mild calcaneal Achilles enthesopathy Electronically authenticated by: IDA SOTO Date: 2023-02-04 18:16 [facility] 01-29-2023 Note TB negative from 02/05 PA submitted via [facility]MM[facility]. Saira Kramer PharmD, BCACP 02/26/23 2:43 PM [facility] [phone] [facility] 01-29-2023 Note LVM with pt to confi rm shipment from [facility]. F/U confirm shipment from [facility]. Goyo Winston [facility] 03/26/2310:[address] [facility] 01-29-2023 Note Called and spoke wit h the patient and she has not received medication yet, but the order has been placed from [facility]. We will F/U taco to make sure the medication was received. Melissa Arizmendi, Wet Machine Operator 03/15/23 3:[address] [facility] 01-29-2023 [...] Tai, PharmD, BCACP, CSP 01/29/23 8:50 AM [facility] [phone] [facility] 01-29-2023 Note Called pt, she will contact [facility] soon to discuss filling. F/U check rx/shipment status next week Goyo Winston [facility] 231:[address] [facility] 01-29-2023 Note Prior Authorization for [employer] has been approved 02/26/23-02/27/24. Case ID/Authorization Number:[id number] Must be filled at [facility], sending msg to MD for transfer. Calling pt to discuss filling at [facility]. LVM. F/U contact pt to discuss filling at [facility]. Goyo Winston [facility] 238:[address] [facility] 01-29-2023 Note I called the patient to ensure that she has received his medication from [facility] and address any questions he may have, lvm. Kaleigh Rosas, [facility] 232:[address] [facility] 01-29-2023 Note I called and spoke w ith the pt to confirm delivery and she has received medication with no follow up questions. Melissa Arizmendi, Wet Machine Operator 03/30/23 10:[address] 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 [facility] Evaluation + Plan note No data available for this section General Surgery Arvind Evaluation note Diagnosis Encounter for repeat Pap smear due to previous insuff cervical cells [facility] No data available for this section General Surgery [place] Progress note No data available for this section General Surgery [place] Summary Purpose Family History No Family History Records FoundNo Family History Records FoundNo Family History Records FoundNo Family History Records FoundNo Family History Records Found Advance Directives No Advanced Directives Records FoundNo Advanced Directives Records FoundNo Advanced Directives Records FoundNo Advanced Directives Records FoundNo Advanced Directives Records Found Additional Source Comments INFORMATION SOURCE (unrecogn ized section and content) DATE CREATED AUTHOR 03/16/2021 [facility] DATE CREATED AUTHOR AUTHOR'S ORGANIZ ATION 02/15/2023 [facility] DATE CREATED AUTHOR AUTHOR'S ORGANIZ ATION 04/08/2023 [facility] DATE CREATED AUTHOR AUTHOR'S ORGANIZ ATION 08/21/2023 [facility] DATE CREATED AUTHOR AUTHOR'S ORGANIZ ATION 11/17/2023 [facility] EPIC Patient Care team informatio n (unrecognized section and content) Want Ad Supervisor Relationship Specialty Start Date End Date Mariza Wright MD [address] [place] [id number] PCP - General 09/27/23 Reason for Visit [...] BE BASED ON THE PRIMARY CLINICAL RECORDS. [employer] provides no warranty or guarantee of the accuracy or completeness of information in this document.
== END 2024-01-11 06:53 | disposition home or self-care (01) ==
LOC: LAB 06:52
PROVIDERS: PCP Family Medicine; Visit Provider Family Medicine
DX: N39.0 Urinary tract infection, site not specified (principal)
CPT/HCPCS: 87086; 87150; 87186

== ENCOUNTER 2024-01-11 06:53 | Outpatient (OUT) | payer BC, SELFPAY ==
--- OUTSIDE RECORDS SUMMARY | 2024-01-11 06:55 | XMS_ITS | CCD ---
Author Organization [facility] Care Team Providers Care Grain Trimmer Name Role Phone HOYLIBBYMARIZA Consulting Unavailable HOY, [...] Unavailable WEST, DR IDA Temple Consulting Unavailable PASTOR, JACQUI Consulting Unavailable HOY, MARIZA Primary Care Unavailable PASTORJACQUI Attending Unavailable PASTOR, JACQUI Admitting Unavailable Hoy, Mariza Primary Care Physician Mariza Wright Referring Unavailable Joselo STARKS Attending Unavailable Joselo STARKS Attending Unavailable Joselo STARKS Attending Unavailable EYAL ALEGRIA Attending Unavailable TOMAS CLINTON I Attending Unavailable TOMAS CLINTON I Attending Unavailable ASHLEIGH ZEE Attending Unavailable Mariza Wright MD Primary Care Provider [phone] FELIX WHITNEY Attending Unavailable FELIX WHITNEY Attending Unavailable EASTON KEENE Attending Unavailable Allergies Allergy Classification Reported Allergen(s) Allergy Type Date of Onset Reaction(s) Facility (2 sources) Benzoyl Peroxide; Translations: [BENZOYL PEROXIDE] Drug Allergy 07-22-20 15 [facility] (1 source) Desonide Drug Allergy 04-05-20 13 [facility] (1 source) Sulfonamides (Antibiotic) Drug allergy (disorder) 04-05-20 13 [facility] (1 source) Misc-Other; Translations: [Misc-Other] Propensity to adverse reactions (disorder) 07-22-20 15 [facility] (3 sources) Sulfonamides (Antibiotic); Translations: [sulfa drugs] Drug allergy Discoloration of skin (finding) [facility] [place] (1 source) Adhesive agent; Translations: [ADHESIVE] Propensity to adverse reactions to drug (disorder) 09-21-20 14 [facility] Repository (2 sources) Sulfamethoxazole / Trimethoprim; Translations: [SULFAMETHOXAZOLE-T RIMETHOPRIM] Drug Allergy 02-02-20 23 Rash [facility] Repository (1 source) Sulfonamides (Antibiotic); Translations: [SULFA (SULFONAMIDE ANTIBIOTICS)] Propensity to adverse reactions to drug (disorder) 09-21-20 14 [facility] Rep[facility] (1 source) ADHESIVE TAPE-SILICONES; Translations: [ADHESIVE TAPE-SILICONES] Propensity to adverse reactions to drug (disorder) 10-07-19 22 [facility] (1 source) Benzoyl Peroxide Drug Allergy 09-20-20 23 [facility] (1 source) Sulfonamides (Antibiotic) Drug Allergy 09-20-20 23 [facility] Work Phone: (1 source) Wound Dressing Adhesive Drug Allergy 09-21-20 14 Unknown [facility] Medications Current Medications Medication Drug Class(es) Dates Sig (Normalized) Sig (Original) aspirin 81 mg chewable tablet (3 sources) Platelet Aggregation Inhibitor, Nonsteroidal Anti-inflammatory Drug Start: 3 aspirin 81 MG chewable tablet Chew 81 mg 1 (one) time 0 02/26/2023 Active calcium carbonate 1500 mg oral tablet (1 source) take 1 tablet by mouth in the morning calcium carbonate 1500 (600 Ca) MG tablet Take 1,500 mg by mouth in the morning. 0 Active hydroxychloroquine sulfate 200 mg oral tablet (2 sources) Antimalarial, Antirheumatic Agent Start: 3 hydroxychloroquine 200 mg Tab See Instructions, as directed, Refills(s) 0 Start Date: 02/26/23 Status: Ordered levothyroxine sodium 0.1 mg oral tablet (3 sources) l-Thyroxine Start: 3 take 1 tablet by mouth once daily levothyroxine 100 mcg (0.1 mg) Tab 100 mcg = 1 tab(s), Oral, Daily, Refills(s) 0 Start Date: 02/26/23 Status: Ordered take 1 tablet by mouth in the mo rning levothyroxine (Synthroid, Levoxyl) 100 MCG tablet Take 100 mcg by mouth in the morning. Take on an empty stomach.. 0 Active liothyronine sodium 0.005 mg oral tablet (3 sources) l-Triiodothyronine Start: 02-26-2023 take 1 tablet by mouth once daily liothyronine 5 mcg Tab 5 mcg = 1 tab(s), Oral, Daily, Refills(s) 0 Start Date: 02/26/23 Status: Ordered take 1 tablet by mouth in the mo rning liothyronine (Cytomel) 5 MCG tablet Take 5 mcg by mouth in the morning. 0 Active magnesium oxide 500 mg oral tablet (3 sources) Start: 02-26-2023 take 1 tablet by mouth once daily magnesium oxide 500 mg oral tablet 500 mg = 1 tab(s), Oral, Daily, Refills(s) 0 Start Date: 02/26/23 Status: Ordered take 1 capsule by mouth in the orning Magnesium Oxide -Mg Supplement (RA Magnesium) 500 MG capsule Take 1 each by mouth in the morning. 0 Active pantoprazole 40 mg delayed release oral tablet (3 sources) Proton Pump Inhibitor Start: 02-26-2023 take 1 tablet by mouth once daily Protonix 40 mg Tab-DR 40 mg = 1 tab(s), Oral, Daily, Refills(s) 0 Start Date: 02/26/23 Status: Ordered rifAXIMin 550 mg oral tablet (2 sources) Rifamycin Antibacterial Start: 02-26-2023 take 1 tablet by mouth twice daily Xifaxan 550 mg oral tablet 550 mg = 1 tab(s), Oral, BID, Refills(s) 0 Start Date: 02/26/23 Status: Ordered 24 hr tofacitinib 11 mg extended release oral tablet (2 sources) Start: 02-26-2023 take 1 tablet by mouth once daily Xeljanz XR 11 mg oral tablet, extended release 11 mg = 1 tab(s), Oral, Daily, Refills(s) 0 Start Date: 02/26/23 Status: Ordered 24 hr upadacitinib 15 mg extended release oral tablet (1 source) Start: 04-07-2023 Rinvoq 15 mg oral tablet, extended release [...] in bowel habit] Onset: 3 Episodic Other screening for suspected conditions (not mental disorders or infectious disease) (5 sources) Encounter for screening for malignant neoplasm of cervix; Translations: [Patient encounter status] Onset: 2 Episodic Other skin disorders (2 sources) Disorder [...] 09-30-2022 Episodic Other aftercare (6 sources) Other longterm (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; Translations: [OTH GROUP HOME CURRENT DRUG THERAPY] Onset: 08-25-2022 Episodic Other bone disease and musculoskeletal deformities (4 sources) Other specified disorders of bone density and structure, other site; Translations: [OTH D/O BONE DEN STRUCT OTH SITE] Onset: 08-28-2022 Episodic Unclassified (1 source) RHEU ARTH R [...] Interpretation Reference Range Facility Follow-Upon 08-19-2023 Follow-Up [id number] Yamileth Small 1970 F Date Provider Department Center 08/19/2023 TOMAS ROBERTO I [facility] No family history on file Level of Service:87969 DE OFFICE/OUTPATIENT ESTABLISHED MOD MDM 30-39 MIN Reason for Visit and Comments: Follow-up [214053] - Follow up [facility] Orders Onlyon 08-12-2023 Orders Only [id number] Yamileth Small 1970 F Date Provider Department Center 08/12/2023 [id number], HISTORICAL [facility] PRIM [facility] No family history on file [facility] 36on 08-10-2023 36 Left detailed messag e that labs were placed. Normal [facility] Orders Onlyon 08-10-2023 Orders Only [id number] Yamileth Small 1970 F Date Provider Department [place] 08/10/2023 TOMAS ROBERTO I [facility] No family history on file [facility] 36on 08-05-2023 36 Patient has an apt o n and is wondering if there are any labs she needs to do prior to her visit. Please advise. Thanks! [facility] 36 Patient called [facility] Follow-Upon 06-03-2023 Follow-Up [id number] Yamileth Small denysbarinelson 1970 F Date Provider Department Center 06/03/2023 [id number] TOMAS Osmin [facility] R[facility] No family history on file Level of Service:[id number] DE OFFICE/OUTPATIENT ESTABLISHED MOD MDM 30-39 MIN () Reason for Visit and Comments: Follow-up [675912] - Follow up [facility] 36on 04-08-2023 36 Last visit pt instru cted to finish current supply and then stop [facility] Ambulatory Visit Summaryon 0 04-07-2023 [...] lupus erythematosus Varicose veins of legs Normal [facility] General Surgery Office/Clini c Noteon 04-07-2023 [...] SARS-CoV-2 (COVID-19) mRNA-1273 vaccine 08/07/2022 Recorded SARSCoV2 mRNA(drmezydxn-ehzm-fczezl) vac 01/01/2022 Recorded SARS-CoV-2 (COVID-19) mRNA-1273 vaccine 06/18/2021 Recorded 2023-02-26: TPV50 SARS-CoV-2 (COVID-19) mRNA-1273 vaccine 10/30/2020 Recorded SARS-CoV-2 (COVID-19) mRNA-1273 vaccine 10/02/2020 Recorded Normal [facility] Comment on above: Result Comment: Elec tronically Signed By: RAUDEL PUENTES, Joselo Barrera\Date and Time Signed: 04/07/23 14:01 EDT Reminderson 04-02-2023 Reminders - From: Cristal Gordon LPN To: GSN - Clinical; Sent: 04/02/2023 11:03:11 EDT Show up: 02/21/2033 07:00:00 EDT Subject: colonoscopy recall Due Date/Time: 03/24/2033 07:00:00 EDT Reminder/Recall Patient due for screening colonoscopy 03/24/2033. Normal [facility] Pathology Noteon 03-29-2023 Pathology Note [id number]#1.00CD:127 Normal [facility] Outside Colonoscopyon 2022 Outside Colonoscopy [id number]#1.00CD:127 [facility] Pre-Certification Formon Pre-Certification Form [id number]#1.00CD:127 [facility] Consent for Procedure/Surger yon 03-05-2023 Consent for Procedure/Surgery [id number]#1.00CD:127 [facility] Facesheeton 03-04-2023 Facesheet [id number]#1.00CD:127 [facility] Ambulatory Visit Summaryon 0 03-03-2023 Ambulatory [...] lupus erythematosus Varicose veins of legs Normal [facility] RAD - CT Reporton 03-03-2023 RAD - CT Report [id number]#[id number]:127 Normal [facility] Orders Onlyon 03-02-2023 Orders Only [id number] Yamileth Small 1970 F Date Provider Department Center 03/02/2023 355Lenore-EYAL ALEGRIA [facility] No family history on file Normal [facility] Physician Referralon 023 Physician Referral [id number]#1.00CD:127 Normal [facility] CT ABD/PELV W CONon 02-13-20 23 [...] by: IDA SOTO Date: 2023-02-12 09:54 Normal [facility] Orders Onlyon 02-08-2023 Orders Only [id number] Yamileth Small 1970 F Date Provider Department Center 02/08/2023 [id number], HISTORICAL [facility] MED [facility] No family history on file Normal [facility] QUANTIFERON TB GOLD PLUSon 0 02-07-2023 QuantiFERON Criteria Comment Normal [facility] Comment on above: Result Comment: Rehan tiFERON-TB [...] test. Performed By: #### Q NTTB #### [facility] [address] [place] [address] Dr. Jazmyn Saavedra QuantiFERON Incubation Incubation performed. Normal [facility] Comment on above: Performed By: #### Q NTTB #### [facility] [address] [place] [address] Dr. Jazmyn Saavedra QuantiFERON Mitogen Value 6.87 IU/mL Normal [facility] Comment on above: Performed By: #### Q NTTB #### [facility] [address] [place] [address] Dr. Jazmyn Saavedra QuantiFERON Nil Value 0.00 IU/mL Normal [facility] Comment on above: Performed By: #### Q NTTB #### [facility] [address] [place] [address] Dr. Jazmyn Saavedra QuantiFERON TB1 Ag Value 0.00 IU/mL Normal [facility] Comment on above: Performed By: #### Q NTTB #### [facility] [address] [place] [address] Dr. Jazmyn Saavedra QuantiFERON TB2 Ag Value 0.00 IU/mL Normal [facility] Comment on above: Performed By: #### Q NTTB #### [facility] [address] [place] [address] Dr. Jazmyn Saavedra QuantiFERON-TB Gold Plus Negative Normal Negative [facility] Comment on above: Result Comment: No r esponse to M tuberculosis antigens detected. Infection with M tuberculosis is unlikely, but high risk individuals should be considered for additional testing (ATS/IDSA/CDC Clinical Practice Guidelines, 2017). The reference range is an Antigen minus Nil result of <0.35 IU/mL. Chemiluminescence immunoassay methodology Performed By: #### Q NTTB #### [facility] [address] [place] [address] Dr. Jazmyn Saavedra HEP B COREon 02-06-2023 Hep B Core Ab, Tot Negative Normal Negative [facility] Comment on above: Performed By: #### S EDR #### [facility] [address] [address] [address] Jazmyn Saavedra HEP B SURFACE ANTIGEN SCREEN on 02-06-2023 HBsAg Screen Negative Normal Negative [facility] Comment on above: Performed By: #### H BSANS #### [facility] [address] [place] [address] Dr. Jazmyn Saavedra CBC AUTO DIFFon 02-05-2023 BASO # 0.0 103/ul Normal 0.0-0.1 [facility] Comment on above: Performed By: #### C BC #### [facility] [address] [place] [address] Dr. Jazmyn Saavedra Basophils/100 WBC (Bld) 0.5 % Normal 0.2-2.0 [facility] Comment on above: Performed By: #### C BC #### [facility] [address] [place] [address] Dr. Jazmyn Saavedra EO # 0.0 103/ul Normal 0.0-0.7 [facility] Comment on above: Performed By: #### C BC #### [facility] [address] [place] [address] Dr. Jazmyn Saavedra Eosinophils/100 WBC (Bld) 0.8 % Critically low 0.9-7.0 [facility] Comment on above: Performed By: #### C BC #### [facility] [address] [place] [address] Dr. Jazmyn Saavedra Erythrocyte distribution width (RBC) [Ratio] 13.2 % Normal 11.0-15.0 [facility] Comment on above: Performed By: #### C BC #### [facility] [address] [place] [address] Dr. Jazmyn Saavedra Hematocrit (Bld) [Volume fraction] 41.1 % Normal 36.0-48.0 [facility] Comment on above: Performed By: #### C BC #### [facility] [address] [place] [address] Dr. Jazmyn Saavedra Hemoglobin (Bld) [Mass/Vol] 13.4 g/dL Normal 12.0-16.0 [facility] Comment on above: Performed By: #### C BC #### [facility] [address] [place] [address] Dr. Jazmyn Saavedra IG # 0.01 10e3/ul Normal 0.00-0.03 [facility] Comment on above: Performed By: #### C BC #### [facility] [address] [place] [address] Dr. Jazmyn Saavedra IG % 0.3 % Normal 0.0-0.5 [facility] Comment on above: Performed By: #### C BC #### [facility] [address] [place] [address] Dr. Jazmyn Saavedra LYMPH # 1.2 103/ul Normal 1.2-3.8 [facility] Comment on above: Performed By: #### C BC #### [facility] [address] [place] [address] Dr. Jazmyn Saavedra Lymphocytes/100 WBC (Bld) 31.9 % Normal 20.5-60.0 [facility] Comment on above: Performed By: #### C BC #### [facility] [address] [place] [address] Dr. Jazmyn Saavedra MANUAL DIFF REQ NO Normal [facility] Comment on above: Performed By: #### C BC #### [facility] [address] [place] [address] Dr. Jazmyn Saavedra MCH (RBC) [Entitic mass] 30.6 pg Normal 26.7-34.0 [facility] Comment on above: Performed By: #### C BC #### [facility] [address] [place] [address] Dr. Jazmyn Saavedra MCHC (RBC) [Mass/Vol] 32.6 g/dL Normal 29.9-35.2 [facility] Comment on above: Performed By: #### C BC #### [facility] [address] [place] [address] Dr. Jazmyn Saavedra MCV (RBC) [Entitic vol] 93.8 fL Normal 81.0-99.0 [facility] Comment on above: Performed By: #### C BC #### [facility] [address] [place] [address] Dr. Jazmyn Saavedra MONO # 0.5 103/ul Normal 0.3-0.8 [facility] Comment on above: Performed By: #### C BC #### [facility] [address] [place] [address] Dr. Jazmyn Saavedra Monocytes/100 WBC (Bld) 14.1 % Critically high 1.7-12.0 [facility] Comment on above: Performed By: #### C BC #### [facility] [address] [place] [address] Dr. Jazmyn Saavedra NEUT # 1.9 103/ul Normal 1.4-6.5 [facility] Comment on above: Performed By: #### C BC #### [facility] [address] [place] [address] Dr. Jazmyn Saavedra Neutrophils/100 WBC (Bld) 52.4 % Normal 43.0-75.0 [facility] Comment on above: Performed By: #### C BC #### [facility] [address] [place] [address] Dr. Jazmyn Saavedra Platelet mean volume (Bld) [Entitic vol] 9.4 fL Critically low 9.5-13.5 [facility] Comment on above: Performed By: #### C BC #### [facility] [address] [place] [address] Dr. Jazmyn Saavedra PLT 342 103/ul Normal 150-450 [facility] Comment on above: Performed By: #### C BC #### [facility] [address] [place] [address] Dr. Jazmyn Saavedra RBC 4.38 106/ul Normal 4.20-5.40 [facility] Comment on above: Performed By: #### C BC #### [facility] [address] [place] [address] Dr. Jazmyn Saavedra WBC 3.7 103/ul Critically low 4.0-11.[address] [facility] Comment on above: Performed By: #### C BC #### [facility] [address] [place] [address] Dr. Jazmyn Saavedra FREE THYROXINE INDEX T7on FTI 3.20 Normal 1.30-4.50 [facility] Comment on above: Performed By: #### S EDR #### [facility] [address] [address] [address] Jazmyn Saavedra T3U 36.0 % Normal 30.0-39.0 [facility] Comment on above: Performed By: #### S EDR #### [facility] [address] [address] [address] Jazmyn Saavedra T4 [Mass/Vol] 8.90 ug/dL Normal 4.80-13.90 [facility] Comment on above: Performed By: #### S EDR #### [facility] [address] [place] [address] Dr. Jazmyn Saavedra GLYCOHEMOGLOBIN A1Con 2022 ADA RECOMMENDATION SEE BELOW Normal [facility] Comment on above: Result Comment: ADA RECOMMENDED LIMIT 4.0 - 6.0 ADA THERAPEUTIC TARGET < 7.0 ACTION SUGGESTED > 7.0 Performed By: #### S EDR #### [facility] [address] [address] [address] Jazmyn Saavedra Glucose [Mass/Vol] 123 mg/dL Normal [facility] Comment on above: Performed By: #### S EDR #### [facility] [address] [place] [address] Dr. Jazmyn Saavedra HbA1c (Bld) [Mass fraction] 5.9 % Normal 4.5-6.2 [facility] Comment on above: Performed By: #### S EDR #### [facility] [address] [place] [address] Dr. Jazmyn Saavedra LIPID PROFILEon 02-05-2023 CHOL-HDL RATIO NORM SEE BELOW Normal [facility] Comment on above: Result Comment: 3.3 - 4.4 LOW RISK 4.4 - 7.1 AVERAGE RISK 7.1 - 11.0 MODERATE RISK >11.0 HIGH RISK Performed By: #### S EDR #### [facility] [address] [place] [address] Dr. Jazmyn Saavedra Cholesterol [Mass/Vol] 256 mg/dL Critically high <=200 [facility] Comment on above: Performed By: #### S EDR #### [facility] [address] [address] [address] Jazmyn Saavedra Cholesterol in HDL [Mass/Vol] 108 mg/dL Critically high 40-60 [facility] Comment on above: Performed By: #### S EDR #### [facility] [address] [address] [address] Jazmyn Saavedra Cholesterol in LDL [Mass/Vol] 139.4 mg/dL Normal [facility] Comment on above: Performed By: #### S EDR #### [facility] [address] [address] [address] Jazmyn Saavedra Cholesterol.total/ Cholesterol in HDL [Mass ratio] 2.4 {ratio} Normal [facility] Comment on above: Performed By: #### S EDR #### [facility] [address] [address] [address] Jazmyn Saavedra HDL NORMAL > or = 60 mg/dl - LO W CARDIOVASCULAR RISK <40 mg/dl - HIGH CARDIOVASCULAR RISK Normal [facility] Comment on above: Performed By: #### S EDR #### [facility] [address] [address] [address] Jazmyn Saavedra LDL CALC NORMAL SEE BELOW Normal [facility] Comment on above: Result Comment: <100 mg/dl OPTIMAL 100 - 129 mg/dl NEAR OR ABOVE OPTIMAL 130 - 159 mg/dl BORDERLINE HIGH 160 - 189 mg/dl HIGH >190 mg/dl VERY HIGH Performed By: #### S EDR #### [facility] [address] [address] [address] Jazmyn Saavedra Triglyceride [Mass/Vol] 43 mg/dL Normal <=150 [facility] Comment on above: Performed By: #### S EDR #### [facility] [address] [address] [address] Jazmyn Saavedra VLDL CALC 8.6 mg/dL Normal [facility] Comment on above: Performed By: #### S EDR #### [facility] [address] [address] [address] Jazmyn Saavedra Orders Onlyon 02-05-2023 Orders Only [id number] Yamileth Small 1970 F Date Provider Department Center 02/05/2023 [id number], HISTORICAL C PHYS MED [facility] No family history on file Normal [facility] PROF 14(COMP METB)on 023 Albumin [Mass/Vol] 4.0 g/dL Normal 3.4-5.0 [facility] Comment on above: Performed By: #### T 7, CMP, LIPID, TSH #### [facility] [address] [address] [address] Jazmyn Saavedra Albumin/Globulin [Mass ratio] 0.9 {ratio} Normal [facility] Comment on above: Performed By: #### T 7, CMP, LIPID, TSH #### [facility] [address] [address] [address] Jazmyn Saavedra ALP [Catalytic activity/Vol] 57 U/L Normal 46-116 [facility] Comment on above: Performed By: #### T 7, CMP, LIPID, TSH #### [facility] [address] [address] [address] Jazmyn Saavedra ALT [Catalytic activity/Vol] 23 U/L Normal 14-59 [facility] Comment on above: Performed By: #### T 7, CMP, LIPID, TSH #### [facility] [address] [address] [address] Jazmyn Saavedra Anion gap [Moles/Vol] 13.8 mmol/L Normal [facility] Comment on above: Performed By: #### T 7, CMP, LIPID, TSH #### [facility] [address] [address] [address] Jazmyn Saavedra AST [Catalytic activity/Vol] 23 U/L Normal 15-37 [facility] Comment on above: Performed By: #### T 7, CMP, LIPID, TSH #### [facility] [address] [address] [address] Jazmyn Saavedra Bilirubin [Mass/Vol] 0.6 mg/dL Normal 0.2-1.0 [facility] Comment on above: Performed By: #### T 7, CMP, LIPID, TSH #### [facility] [address] [place] [address] Dr. Jazmyn Saavedra Calcium [Mass/Vol] 9.6 mg/dL Normal 8.5-10.1 [facility] Comment on above: Performed By: #### T 7, CMP, LIPID, TSH #### [facility] [address] [place] [address] Dr. Jazmyn Saavedra Chloride [Moles/Vol] 100 mmol/L Normal 98-107 [facility] Comment on above: Performed By: #### T 7, CMP, LIPID, TSH #### [facility] [place] [address] Dr. Jazmyn Saavedra CO2 [Moles/Vol] 29.9 mmol/L Normal 21.0-32.0 [facility] Comment on above: Performed By: #### T 7, CMP, LIPID, TSH #### [facility] [address] [place] [address] Dr. Jazmyn Saavedra Creatinine [Mass/Vol] 0.89 mg/dL Normal 0.55-1.02 [facility] Comment on above: Performed By: #### T 7, CMP, LIPID, TSH #### [facility] [address] [place] [address] Dr. Jazmyn Saavedra EGFR-AF SIERRA LEONEAN >60 Normal >=60 [facility] Comment on above: Performed By: #### T 7, CMP, LIPID, TSH #### [facility] [address] [place] [address] Dr. Jazmyn Saavedra EGFR-NON AF SIERRA LEONEAN >60 Normal >=60 [facility] Comment on above: Performed By: #### T 7, CMP, LIPID, TSH #### [facility] [address] [place] [address] Dr. Jazmyn Saavedra Globulin (S) [Mass/Vol] 4.4 g/dL Normal [facility] Comment on above: Performed By: #### T 7, CMP, LIPID, TSH #### [facility] [address] [place] [address] Dr. Jazmyn Saavedra Glucose [Mass/Vol] 89 mg/dL Normal 74-106 [facility] Comment on above: Performed By: #### T 7, CMP, LIPID, TSH #### [facility] [address] [address] [address] Jazmyn Saavedra Potassium [Moles/Vol] 3.7 mmol/L Normal 3.5-5.1 [facility] Comment on above: Performed By: #### T 7, CMP, LIPID, TSH #### [facility] [address] [address] [address] Jazmyn Saavedra Protein [Mass/Vol] 8.4 g/dL Critically high 6.4-8.2 [facility] Comment on above: Performed By: #### T 7, CMP, LIPID, TSH #### [facility] [address] [address] [address] Jazmyn Saavedra Sodium [Moles/Vol] 140 mmol/L Normal 136-145 [facility] Comment on above: Performed By: #### T 7, CMP, LIPID, TSH #### [facility] [address] [place] [address] Dr. Jazmyn Saavedra Urea nitrogen [Mass/Vol] 17.0 mg/dL Normal 7.0-18.0 [facility] Comment on above: Performed By: #### T 7, CMP, LIPID, TSH #### [facility] [address] [address] [address] Jazmyn Saavedra Urea nitrogen/Creatinin e [Mass ratio] 19.1 mg/mg Normal [facility] Comment on above: Performed By: #### T 7, CMP, LIPID, TSH #### [facility] [address] [address] [address] Jazmyn Saavedra TSHon 02-05-2023 TSH 0.984 uIU/mL Normal 0.358-3.740 [facility] Comment on above: Performed By: #### S EDR #### [facility] [address] [address] [address] Jazmyn Saavedra Documentationon 01-29-2023 Documentation [id number] Yamileth Small 1970 F Date Provider Department Center 01/29/2023 EDUARD ALEXANDRE [facility]il [facility] No family history on file Reason for Visit and Comments: Specialty Pharmacy Note: [facility] Prescription [Other] [facility] Follow-Upon 01-28-2023 Follow-Up [id number] Yamileth Small 1970 F Date Provider Department Center 01/28/2023 Mary Alice-JAYEYAL HEREDIA [facility] No family history on file Level of Service:23692 DE OFFICE/OUTPATIENT ESTABLISHED MOD MDM 30-39 MIN (GC) Normal [facility] PAP ACOG PANEL 2: 30 to 65on 10-07-2022 . . Normal [facility] Comment on above: Result Comment: Perf ormed at: [facility] Performed By: #### S EDR #### [facility] [address] [place] [address] Dr. Jazmyn Saavedra Age Gdln ACOG Testing 30-65 Normal [facility] Comment on above: Performed By: #### S EDR #### [facility] [address] [address] [address] Jazmyn Saavedra DIAGNOSIS: Comment Normal [facility] Comment on above: Result Comment: NEGA TIVE FOR INTRAEPITHELIAL LESION OR MALIGNANCY. Performed at: [facility] Performed By: #### S EDR #### [facility] [address] [address] [address] Jazmyn Saavedra HPV Aptima Negative Normal Negative [facility] Comment on above: Result Comment: This nucleic acid amplification test detects fourteen high-risk HPV types (16,18,31,33,35,39,45,51,52,56,58,59,66,68) without differentiation. Performed at: =G Performed By: #### S EDR #### [facility] [address] [address] [address] Jazmyn Saavedra HPV Genotype Reflex Comment Normal [facility] Comment on above: Result Comment: Crit eria not met, HPV Genotype not performed. Performed at: [facility] Performed By: #### S EDR #### [facility] [address] [place] [address] Dr. Jazmyn Saavedra Methodology: Comment Normal [facility] Comment on above: Result Comment: This liquid based ThinPrep(R) pap test was screened with the use of an image guided system. Performed at: [facility] Performed By: #### S EDR #### [facility] [address] [place] [address] Dr. Jazmyn Saavedra Note: Comment Normal [facility] Comment on above: Result Comment: The Pap smear is a screening test designed to aid in the detection of premalignant and malignant conditions of the uterine cervix. It is not a diagnostic procedure and should not be used as the sole means of detecting cervical cancer. Both false-positive and false-negative reports do occur. . Performed at: [facility] Performed By: #### S EDR #### [facility] [address] [place] [address] Dr. Jazmyn Saavedra Performed by: Comment Normal [facility] Comment on above: Result Comment: Daryl Calhoun, Clinical Therapist (ASCP) Performed at: [facility] Performed By: #### S EDR #### [facility] [address] [place] [address] Dr. Jazmyn Saavedra Specimen adequacy: Comment Normal [facility] Comment on above: Result Comment: Sati sfactory for evaluation. Endocervical component may not be distinguished in cases of atrophy. Performed at: [facility] Performed By: #### S EDR #### [facility] [address] [place] [address] Dr. Jazmyn Saavedra Orders Onlyon 08-31-2022 Orders Only [id number] Yamileth Small 1970 F Date Provider Department Center 08/31/2022 [id number], HISTORICAL [facility] No family history on file Normal [facility] XR DEXA BONE DENSITYon 08-28 XR [...] GILBERT GEORGE Date: 2022-08-28 08:47 Normal [facility] CBC AUTO DIFFon 08-25-2022 BASO # 0.0 103/ul Normal 0.0-0.1 [facility] Comment on above: Performed By: #### S EDR #### [facility] [address] [place] [address] Dr. Jazmyn Saavedra Basophils/100 WBC (Bld) 0.5 % Normal 0.2-2.0 [facility] Comment on above: Performed By: #### S EDR #### [facility] [address] [address] [address] Jazmyn Saavedra EO # 0.1 103/ul Normal 0.0-0.7 [facility] Comment on above: Performed By: #### S EDR #### [facility] [address] [address] [address] Jazmyn Saavedra Eosinophils/100 WBC (Bld) 1.2 % Normal 0.9-7.0 [facility] Comment on above: Performed By: #### S EDR #### [facility] [address] [place] [address] Dr. Jazmyn Saavedra Erythrocyte distribution width (RBC) [Ratio] 13.2 % Normal 11.0-15.0 [facility] Comment on above: Performed By: #### S EDR #### [facility] [address] [place] [address] Dr. Jazmyn Saavedra Hematocrit (Bld) [Volume fraction] 38.4 % Normal 36.0-48.0 [facility] Comment on above: Performed By: #### S EDR #### [facility] [address] [place] [address] Dr. Jazmyn Saavedra Hemoglobin (Bld) [Mass/Vol] 12.6 g/dL Normal 12.0-16.0 [facility] Comment on above: Performed By: #### S EDR #### [facility] [address] [place] [address] Dr. Jazmyn Saavedra IG # 0.01 10e3/ul Normal 0.00-0.03 [facility] Comment on above: Performed By: #### S EDR #### [facility] [address] [place] [address] Dr. Jazmyn Saavedra IG % 0.2 % Normal 0.0-0.5 [facility] Comment on above: Performed By: #### S EDR #### [facility] [address] [place] [address] Dr. Jazmyn Saavedra LYMPH # 1.7 103/ul Normal 1.2-3.8 [facility] Comment on above: Performed By: #### S EDR #### [facility] [address] [place] [address] Dr. Jazmyn Saavedra Lymphocytes/100 WBC (Bld) 40.8 % Normal 20.5-60.0 [facility] Comment on above: Performed By: #### S EDR #### [facility] [address] [place] [address] Dr. Jazmyn Saavedra MANUAL DIFF REQ NO Normal [facility] Comment on above: Performed By: #### S EDR #### [facility] [address] [place] [address] Dr. Jazmyn Saavedra MCH (RBC) [Entitic mass] 31.0 pg Normal 26.7-34.0 [facility] Comment on above: Performed By: #### S EDR #### [facility] [address] [place] [address] Dr. Jazmyn Saavedra MCHC (RBC) [Mass/Vol] 32.8 g/dL Normal 29.9-35.2 [facility] Comment on above: Performed By: #### S EDR #### [facility] [address] [address] [address] Jazmyn Saavedra MCV (RBC) [Entitic vol] 94.3 fL Normal 81.0-99.0 [facility] Comment on above: Performed By: #### S EDR #### [facility] [address] [address] [address] Jazmyn Saavedra MONO # 0.5 103/ul Normal 0.3-0.8 [facility] Comment on above: Performed By: #### S EDR #### [facility] [address] [address] [address] Jazmyn Saavedra Monocytes/100 WBC (Bld) 11.9 % Normal 1.7-12.0 [facility] Comment on above: Performed By: #### S EDR #### [facility] [address] [place] [address] Dr. Jazmyn Saavedra NEUT # 1.9 103/ul Normal 1.4-6.5 [facility] Comment on above: Performed By: #### S EDR #### [facility] [address] [address] [address] Jazmyn Saavedra Neutrophils/100 WBC (Bld) 45.4 % Normal 43.0-75.0 [facility] Comment on above: Performed By: #### S EDR #### [facility] [address] [address] [address] Jazmyn Saavedra Platelet mean volume (Bld) [Entitic vol] 9.3 fL Critically low 9.5-13.5 [facility] Comment on above: Performed By: #### S EDR #### [facility] [address] [place] [address] Dr. Jazmyn Saavedra PLT 309 103/ul Normal 150-450 [facility] Comment on above: Performed By: #### S EDR #### [facility] [address] [address] [address] Jazmyn Saavedra RBC 4.07 106/ul Critically low 4.20-5.40 [facility] Comment on above: Performed By: #### S EDR #### [facility] [address] [address] [address] Jazmyn Saavedra WBC 4.2 103/ul Normal 4.0-11.0 [facility] Comment on above: Performed By: #### S EDR #### [facility] [address] [address] [address] Jazmyn Saavedra CRPon 08-25-2022 CRP [Mass/Vol] mg/L Normal <=1.[address] [facility] Comment on above: Performed By: #### C RP, CMP, LIPID #### [facility] [address] [address] [address] Jazmyn Saavedra LIPID PROFILEon 08-25-2022 CHOL-HDL RATIO NORM SEE BELOW Normal [facility] Comment on above: Result Comment: 3.3 - 4.4 LOW RISK 4.4 - 7.1 AVERAGE RISK 7.1 - 11.0 MODERATE RISK >11.0 HIGH RISK Performed By: #### C RP, CMP, LIPID #### [facility] [address] [address] [address] Jazmyn Saavedra Cholesterol [Mass/Vol] 251 mg/dL Critically high <=200 [facility] Comment on above: Performed By: #### C RP, CMP, LIPID #### [facility] [address] [address] [address] Jazmyn Saavedra Cholesterol in HDL [Mass/Vol] 102 mg/dL Critically high 40-60 [facility] Comment on above: Performed By: #### C RP, CMP, LIPID #### [facility] [address] [address] [address] Jazmyn Saavedra Cholesterol in LDL [Mass/Vol] 135.0 mg/dL Normal [facility] Comment on above: Performed By: #### C RP, CMP, LIPID #### [facility] [address] [place] [address] Dr. Jazmyn Saavedra Cholesterol.total/ Cholesterol in HDL [Mass ratio] 2.5 {ratio} Normal [facility] Comment on above: Performed By: #### C RP, CMP, LIPID #### [facility] [address] [address] [address] Jazmyn Saavedra HDL NORMAL > or = 60 mg/dl - LO W CARDIOVASCULAR RISK <40 mg/dl - HIGH CARDIOVASCULAR RISK Normal [facility] Comment on above: Performed By: #### C RP, CMP, LIPID #### [facility] [address] [address] [address] Jazmyn Saavedra LDL CALC NORMAL SEE BELOW Normal [facility] Comment on above: Result Comment: <100 mg/dl OPTIMAL 100 - 129 mg/dl NEAR OR ABOVE OPTIMAL 130 - 159 mg/dl BORDERLINE HIGH 160 - 189 mg/dl HIGH >190 mg/dl VERY HIGH Performed By: #### C RP, CMP, LIPID #### [facility] [address] [address] [address] Jazmyn Saavedra Triglyceride [Mass/Vol] 70 mg/dL Normal <=150 [facility] Comment on above: Performed By: #### C RP, CMP, LIPID #### [facility] [address] [address] [address] Jazmyn Saavedra VLDL CALC 14.0 mg/dL Normal [facility] Comment on above: Performed By: #### C RP, CMP, LIPID #### [facility] [address] [address] [address] Jazmyn Saavedra Orders Onlyon 08-25-2022 Orders Only [id number] DavidYamileth pattennelson 1970 F Date Provider Department [facility] 08/25/2022 [id number], HISTORICAL [facility] No family history on file Normal [facility] PROF 14(COMP METB)on 022 Albumin [Mass/Vol] 3.9 g/dL Normal 3.4-5.0 [facility] Comment on above: Performed By: #### C RP, CMP, LIPID #### [facility] [id number] Jazmyn Saavedra Albumin/Globulin [Mass ratio] 1.0 {ratio} Normal [facility] Comment on above: Performed By: #### C RP, CMP, LIPID #### [facility] [address] [address] [address] Jazmyn Saavedra ALP [Catalytic activity/Vol] 49 U/L Normal 46-116 [facility] Comment on above: Performed By: #### C RP, CMP, LIPID #### [facility] [address] [place] [address] Dr. Jazmyn Saavedra ALT [Catalytic activity/Vol] 17 U/L Normal 14-59 [facility] Comment on above: Performed By: #### C RP, CMP, LIPID #### [facility] [address] [place] [address] Dr. Jazmyn Saavedra Anion gap [Moles/Vol] 10.1 mmol/L Normal [facility] Comment on above: Performed By: #### C RP, CMP, LIPID #### [facility] [address] [place] [address] Dr. Jazmyn Saavedra AST [Catalytic activity/Vol] 19 U/L Normal 15-37 [facility] Comment on above: Performed By: #### C RP, CMP, LIPID #### [facility] [address] [place] [address] Dr. Jazmyn Saavedra Bilirubin [Mass/Vol] 0.5 mg/dL Normal 0.2-1.0 [facility] Comment on above: Performed By: #### C RP, CMP, LIPID #### [facility] [address] [place] [address] Dr. Jazmyn Saavedra Calcium [Mass/Vol] 9.3 mg/dL Normal 8.5-10.1 [facility] Comment on above: Performed By: #### C RP, CMP, LIPID #### [facility] [address] [place] [address] Dr. Jazmyn Saavedra Chloride [Moles/Vol] 103 mmol/L Normal 98-107 [facility] Comment on above: Performed By: #### C RP, CMP, LIPID #### [facility] [address] [place] [address] Dr. Jazmyn Saavedra CO2 [Moles/Vol] 30.1 mmol/L Normal 21.0-32.0 [facility] Comment on above: Performed By: #### C RP, CMP, LIPID #### [facility] [address] [place] [address] Dr. Jazmyn Saavedra Creatinine [Mass/Vol] 0.80 mg/dL Normal 0.55-1.02 [facility] Comment on above: Performed By: #### C RP, CMP, LIPID #### [facility] [address] [address] [address] Jazmyn Saavedra EGFR-AF SIERRA LEONEAN >60 Normal >=60 [facility] Comment on above: Performed By: #### C RP, CMP, LIPID #### [facility] [address] [address] [address] Jazmyn Saavedra EGFR-NON AF SIERRA LEONEAN >60 Normal >=60 [facility] Comment on above: Performed By: #### C RP, CMP, LIPID #### [facility] [address] [address] [address] Jazmyn Saavedra Globulin (S) [Mass/Vol] 4.1 g/dL Normal [facility] Comment on above: Performed By: #### C RP, CMP, LIPID #### [facility] [address] [address] [address] Jazmyn Saavedra Glucose [Mass/Vol] 92 mg/dL Normal 74-106 [facility] Comment on above: Performed By: #### C RP, CMP, LIPID #### [facility] [address] [place] [address] Dr. Jazmyn Saavedra Potassium [Moles/Vol] 4.2 mmol/L Normal 3.5-5.1 [facility] Comment on above: Performed By: #### C RP, CMP, LIPID #### [facility] [address] [place] [address] Dr. Jazmyn Saavedra Protein [Mass/Vol] 8.0 g/dL Normal 6.4-8.2 [facility] Comment on above: Performed By: #### C RP, CMP, LIPID #### [facility] [address] [place] [address] Dr. Jazmyn Saavedra Sodium [Moles/Vol] 139 mmol/L Normal 136-145 [facility] Comment on above: Performed By: #### C RP, CMP, LIPID #### [facility] [address] [place] [address] Dr. Jazmyn Saavedra Urea nitrogen [Mass/Vol] 20.0 mg/dL Critically high 7.0-18.0 [facility] Comment on above: Performed By: #### C RP, CMP, LIPID #### [facility] [address] [place] [address] Dr. Jazmyn Saavedra Urea nitrogen/Creatinin e [Mass ratio] 25.0 mg/mg Normal [facility] Comment on above: Performed By: #### C RP, CMP, LIPID #### [facility] [address] [place] [address] Dr. Jazmyn Saavedra SED RATE [facility] 2021 SED RATE 47 mm/hr Critically high <=30 [facility] Comment on above: Performed By: #### S EDR #### [facility] [address] [place] [address] Dr. Jazmyn Saavedra ASYMPTOMATIC COVID-19 ANTIGE Non 05-18-2022 EUA Statement SEE BELOW Normal [facility] Comment on above: Result Comment: This test [...] sooner. Performed By: #### S EDR #### [facility] [address] [place] [address] Dr. Jazmyn Saavedra SARS-CoV-2 (COVID-19) RNA NILES+probe Ql (Unsp spec) Positive Critically abnormal NEGATIVE [facility] Comment on above: Result Comment: SARS -CoV-2 antigen present; does not rule out coinfection with other pathogens. Performed By: #### S EDR #### [facility] [address] [place] [address] Dr. Jazmyn Saavedra Covid-19 PCR ([facility])on SARS-CoV-2 (COVID-19) RNA NILES+probe Ql (Unsp spec) Detected Critically abnormal NOT DETECTED [facility] Comment on above: Result Comment: This test is not yet approved or cleared by the [place] FDA. When there are no FDA-approved or cleared tests available, and other criteria are met, FDA can make tests available under an emergency access mechanism called an Emergency Use Authorization (EUA). The EUA for this test is supported by the [employer] of Health and Human Service's declaration that [...] used). Performed By: #### C VDTBH #### [facility] [address] [address] [address] Jazmyn BARLOW MULTI-CANCER PANELon 02-12-2021 RESULT Results to be mailed directly to physician's office by reference lab. Normal [facility] Comment on above: Result Comment: Test performed by [facility] [address] [place] [address] [id number] No result expected. For billing and tracking purposes only. Performed By: #### 3 [id number] #### [facility] [address] Vital Signs Date Time Vital Sign Value Performing Clinician Facility 11-16-2023 11:39-0500 Body mass index (BMI) [Ratio] 24.96 kg/m2 ItsGoinOn DO Work Phone: [facility] 11-16-2023 11:39-0500 Body weight 68.04 kg [employer] Work Phone: [facility] 11-16-2023 11:39-0500 Diastolic blood pressure 72 mm[Hg] Easton Jassi DO Work Phone: [facility] 11-16-2023 11:39-0500 Systolic blood pressure 118 mm[Hg] Easton Jassi DO Work Phone: [facility] 03-03-2023 14:35-0400 Blood Pressure Location Joselo NILL [facility] [place] 03-03-2023 14:35-0400 Diastolic blood pressure 68 mm[Hg] Joselo NILL [facility] [place] 03-03-2023 14:35-0400 Heart rate 68 /min Joselo NILL [facility] [place] 03-03-2023 14:35-0400 Respiratory rate 16 /min Joselo NILL [facility] [place] 03-03-2023 14:35-0400 Systolic blood pressure 114 mm[Hg] Joselo NILL [facility] Encounters Encounter Date Encounter Type Care Provider Facility Start: 11-16-2023 End: 11-16-2023 ambulatory EASTON KEENE Not Available Start: 11-16-2023 End: 11-16-2023 Postop follow up visit related to original px Easton Jassi DO Work Phone: [facility] Comment on above: Encounter for repeat Pap smear due to previous insuff cervical cells Start: 10-28-2023 End: 10-28-2023 ambulatory FELIX WHITNEY Not Available Start: 09-29-2023 End: 09-29-2023 ambulatory FELIX WHITNEY Not Available Start: 08-19-2023 End: 08-19-2023 ambulatory TOMAS Solorio [facility] Start: 06-03-2023 End: 06-03-2023 ambulatory TOMAS Solorio [facility] Start: 04-07-2023 End: 04-08-2023 ambulatory Joselo STARKS Facility:[facility] Start: 04-07-2023 End: 04-07-2023 Patient encounter procedure Joselo STARKS [facility] Start: 03-24-2023 End: 03-25-2023 ambulatory Joselo STARKS Facility:[id number] Start: 03-03-2023 End: 03-04-2023 ambulatory Mariza Hoy Facility: [facility] Start: 03-03-2023 End: 03-03-2023 Patient encounter procedure Joselo STARKS [facility] [place] Start: 02-18-2023 ambulatory ASHLEIGH [facility] Start: 02-18-2023 ambulatory Mariza Hoy Facility:[facility] Start: 02-12-2023 Encounter for genera l adult medical examination without abnormal findings MARIZA HOY [facility] Start: 02-12-2023 End: 02-13-2023 ambulatory MARIZA WRIGHT Facility:[facility] Start: 02-05-2023 End: 02-06-[address] DOCTOR KELLOGG Facility:[facility] Start: 02-05-2023 End: 02-06-2023 Encounter for general adult medical examination without abnormal findings MARIZA HOY Facility:[facility]1 Start: 02-04-2023 End: 02-05-[address] IDA SOTO Facility:[facility] Start: 01-28-2023 End: 01-28-[facility]-23-[facility]22 End: 09-23-[address] RUTHANN CA . Facility:[facility]1 Start: 08-28-2022 End: 08-29-[address] DOCTOR KELLOGG Facility:[facility]1 Start: 08-25-2022 End: 08-26-[address] DOCTOR KELLOGG Facility:[facility]1 Start: 08-07-2022 End: 08-08-2022 ambulatory MARIZA WRIGHT Facility:[facility] Start: 05-18-2022 End: 05-18-2022 ambulatory JACQUI BAUMANN Facility:[facility] Start: 05-12-2022 End: 05-12-2022 ambulatory JACQUI PASTOR Facility:[facility]1 Procedures Date Procedure Procedure Detail Performing Clinician Start: 08-19-2023 Follow-up visit Follow-up TOMAS CLINTON Start: 03-24-2023 Colonoscopy Easton Keene [employer] Work Phone: Start: 03-24-2023 Colonoscopy Joselo STARKS [employer] Start: 03-24-2023 Esophagogastroduodenoscopy [employer] [employer] Start: 09-23-2022 Microscopic observation [Identifier] in Cervix by Cyto stain Easton Keene [employer] Work Phone: Start: 07-24-2015 Colonoscopy Joselo STARKS [employer] Start: 02-01-2007 Colonoscopy [facility] [employer] Bilateral mastectomy [employer] Biopsy of breast Joselo SCANLON [employer] section Joselo SCANLON [employer] Excision of cervical intervertebral disc Joselo [employer] Excision of lymph node Tony flori [employer] Comment on above: left inguinal Excision of salivary gland M marco [employer] Comment on above: x2 Granuloma (morpholog ic abnormality) [employer]elo [employer] Comment on above: x 2 History of radiofreq uency ablation operation for arrhythmia Joselo PaeDae Total abdominal hyst erectomy with bilateral salpingo-oophorectomy Joselo PaeDae Plan of Treatment Date Care Activity Detail Author Start: 03-24-2033 Screening for malign ant neoplasm of colon [facility] Start: 09-23-2027 Screening for malign ant neoplasm of cervix [facility] Start: 01-27-2025 Screening for malign ant neoplasm of colon FIT-DNA [facility] Start: 11-20-2024 End: 11-20-2024 Patient encounter procedure 11/20/2024 4:00 PM EST Office Visit [facility] [address] [place] [id number] Easton Keene, DO [address] [place] [address] [place] [address] [facility] Start: 06-04-2023 Influenza vaccination Influenza Vacc ine (#1) [facility] Start: 2008 Screening for malign ant neoplasm of breast Mammogram [facility] Start: 1968 Screening for malign ant neoplasm of colon [facility] Immunizations Immunization Date Immunization Notes Care Provider Fa cility 08-07-2022 SARS-CoV-2 (COVID-19 ) mRNA-1273 vaccine Joselo RAUDEL [facility] 01-01-2022 SARS-CoV-2 mRNA (hsyyqcpvdri-rqea-rbond se) vaccine Joselo GHISLAINEL [facility] 06-18-2021 SARS-CoV-2 (COVID-19 ) mRNA-1273 vaccine Joselo SCANLONL [facility] Comment on above: Result Comment: 2022: [id number] 10-30-2020 SARS-CoV-2 (COVID-19 ) mRNA-1273 vaccine Joselo SCANLONL [facility] 10-02-2020 SARS-CoV-2 (COVID-19 ) mRNA-1273 vaccine Joselo SCANLONL [facility] Payers Date Payer Category Payer Unknown [id number] 2022 Unknown BCBS BCBS [id number] 2022-Present [phone] [address] [place] [address] [id number] 2019 Unknown [id number] 1968 Unknown [id number] [id number] 1968 Unknown [id number] 2.16.840.1.026950.3.579.2.593 1968 Unknown [id number] 2.16.840.1.414709.3.579.2.593 1968 Unknown [id number] 2.16.840.1.655544.3.579.2.593 1968 Unknown [id number] 2.16.840.1.549327.3.579.2.593 1968 Unknown [id number] 2.16.840.1.800693.3.579.2.593 1968 Unknown [id number] 2.16.840.1.696260.3.579.2.593 1968 Unknown [id number] 2.16.840.1.025607.3.579.2.593 1968 Unknown [id number] 2.16.840.1.127320.3.579.2.593 1968 Unknown [id number] 2.16.840.1.332142.3.579.2.727 1968 Unknown [id number] 2.16.840.1.885196.3.579.2.727 1968 Unknown [id number] 2.16.840.1.084328.3.579.2.727 1968 Unknown [id number] 2.16.840.1.591124.3.579.2.1259 1968 Unknown [id number] 2.16.840.1.169276.3.579.2.1259 1968 Unknown [id number] 2.16.840.1.010983.3.579.2.1259 1959 Self-pay [id number] Unknown [id number] [id number] Social History Date Type Detail Facility Start: 03-03-2023 End: 09-24-2023 Tobacco smoking status Never smoked tobacco (finding) [facility] Tobacco smoking status Never [facility] Start: 09-24-2023 Sex Assigned At Female F [facility] Start: 10-28-2023 Alcohol intake Current drinke r of alcohol (finding) [facility] Start: 09-24-2023 History of Social function [facility] How often to you hav e a drink containing alcohol? Never [facility] How many standard drinks containing alcohol do you have on a typical day? 1 or 2 [facility] How often do you hav e 6 or more drinks on 1 occasion? Weekly [facility] Start: 1970 Sex Assigned At Not on file [facility] Start: 09-27-2023 Gender identity Identifies as female gender (finding) [facility] Functional Status Date Assessment Result Facility 03-03-2023 Functional Status N/A [facility] Clinical Notes 01-28-2023 to 11-16-2023 Easton Keene, DO - 11/16/2023 11:20 AM EST Note Date & Type Note Facility 11-16-2023 History of Present illness Narrative Reason for Appointment: Patient ID: Teetee Small is a 53 y.o. female who presents for Well Women Visit (Pt present today for rpt pap due to insufficient cells in last pap 10/28/2023) Patient presents today for Repeat Pap appointment. Current Medications: has a current medication list which includes the following prescription(s): aspirin, calcium carbonate, levothyroxine, liothyronine, magnesium oxide -mg supplement, pantoprazole, and tofacitinib er. 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 History of breast cancer Hypothyroidism (CMS/HCC) Invasive ductal carcinoma of breast, female, left (CMS/HCC) Lupus (CMS/HCC) Orthostatic hypertension (CMS/HCC) Primary Sjogren's syndrome (HCC) (CMS/HCC) Supraventricular tachycardia Family History Problem Relation Name Age of Onset Heart disease Mother Diabetes Mother Heart disease Father Other (CVA (cerebral infarction)) Father Social History Tobacco Use Smoking status: Never Smokeless tobacco: Not on file Substance Use Topics Alcohol use: Yes Drug use: Never Past Surgical History: Procedure Laterality Date BREAST SURGERY Right 2004 Excision of Right breast lesion CERVICAL FUSION 2002 C5 SECTION, LOW TRANSVERSE x2 COLONOSCOPY 2015 FINE NEEDLE ASPIRATION 1985 of breast cyst HERNIA REPAIR inguinal LYMPH NODE BIOPSY Left 2006 inguinal lymph node MASTECTOMY Bilateral 2013 with Left sentinel node biopsy OTHER SURGICAL HISTORY 1983 Polycystic ovarian disease OTHER SURGICAL HISTORY 1988 Cheek biopsies x 2 OTHER SURGICAL HISTORY 1994 Excision of ranulas x 2 OTHER SURGICAL HISTORY 2001 Catheter Ablation for SVT TOTAL ABDOMINAL HYSTERECTOMY W/ BILATERAL SALPINGOOPHORECTOMY 2013 Allergies Allergen Reactions Benzoyl Peroxide Other Reaction(s): burning/red rash Sulfa Antibiotics Other Reaction(s): rash/nausea Other Reaction(s): Other, Unknown Sulfamethoxazole-Trimethoprim Rash Wound Dressing Adhesive Unknown Other Reaction(s): redness/sores Other reaction(s): Rash, Other, redness/sores Other Reaction(s): Rash, Other Other Reaction(s): Hives / Skin Rash Review of Systems: Review of Systems Objective OBGyn Exam Vitals: Estimated body mass index is 24.96 kg/m as calculated from the following: Height as of 09/23/22: 5' 5 . Weight as of this encounter: 150 lb. BP: 118/72 No LMP recorded. Patient has had a hysterectomy. Assessment/Plan Encounter Diagnosis Name Primary? Encounter for repeat Pap smear due to previous insuff cervical cells Documented by Easton Keene DO on behalf of: Easton Keene DO documented in this encounter [facility] 08-19-2023 Note Attestation signed by Tomas Clinton [...] Patient was seen with attending physician, Dr. Oz Josue [facility] Medical Student , MS3 There are no diagnoses linked to this encounter. No diagnosis found. No orders of the defined types were placed in this encounter. No results found for this or any previous visit (from the past 36 hour(s)). No follow-ups on file. [facility] 06-03-2023 Note Attestation signed by Tomas [...] Patient was seen with attending physician, Dr. Oz Queen MD Rheumatology Fellow, PGY-5 There are no diagnoses linked to this encounter. No diagnosis found. No orders of the defined types were placed in this encounter. No results found for this or any previous visit (from the past 36 hour(s)). No follow-ups on file. [facility] 03-03-2023 Note Chief Complaint consultation for [...] History of pericar (more content not included)... [facility] Comment on above: Result Comment: Elec tronically Signed By: RAUDEL PUENTES, Joselo Barrera\Date and Time Signed: 03/03/23 16:35 EDT 02-18-2023 Note Patient ID: Teetee Small is a 53 y.o. female. Primary oncologist: Dr Kat Hernandez Primary Care Provider: Mariza Wright MD Subjective Pt presents alone for annual follow up. 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 Continue on Exemestane daily, nearing end of [...] yo woman dx with LEFT breast IDC [id number] ER +4/DE+4 Her 2 non amplified s/p bilateral mastectomy (right pt choice prophylactic) per Dr Draper. OncotypeDx score of 14-no systemic chemotherapy given. GENETIC TESTING, [facility] Multi-Cancer Panel: no pathogenic mutation identified. Diagnosis: 04/10/2013 Left breast biopsy - Invasive ductal CA, grade 1. DCIS, cribriform type. ER/DE + (>90%), HER-2/julio cesar-negative (ratio 1.2), T: 1c, N: 0, M: x, Oncotype DX score: 14 Treatment to date: Cancer surgery 05/17/2013 Left breast mastectomy with SLN biopsy - Invasive ductal CA, high grade, 1.1cm. 0/8 nodes positive. ER/DE + (4+), HER-2/julio cesar-negative (ratio 1.0). Margins [...] swelling, mass, skin change or tenderness. 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 [...] present. Mental Statu (more content not included)... [facility] 02-04-2023 Note PROCEDURE: XR SACROI LIAC JOINT 3 VIEWS COMPARISON: None. HISTORY: Rheumatoid factor positive rheumatoid arthritis FINDINGS: SACRUM: No fracture, disruption of the sacral ala line, or cortical irregularity. COCCYX: No fracture or suspicious alignment. SOFT TISSUES: No widening of the sacroiliac joints. No radiopaque foreign body. OTHER: IMPRESSION: No significant abnormality Electronically authenticated by: IDA SOTO Date: 2023-02-04 18:18 [facility] 02-04-2023 Note PROCEDURE: XR HIP LT [...] by: IDA SOTO Date: 2023-02-04 18:17 [facility] 02-04-2023 Note PROCEDURE: XR FOOT R T MIN 3 VIEWS COMPARISON: None. HISTORY: Rheumatoid factor positive rheumatoid arthritis FINDINGS: BONES:No acute fracture or dislocation. Mild enthesopathic spurring of the calcaneus at the Achilles insertion. SOFT TISSUES:Negative. No visible soft tissue swelling. EFFUSION:None visible. OTHER: Negative. IMPRESSION: Mild calcaneal Achilles enthesopathy Electronically authenticated by: IDA SOTO Date: 2023-02-04 18:16 [facility] 01-29-2023 Note TB negative from 02/05 PA submitted via [facility]MM[facility]. Saira Kramer PharmD, BCACP 02/26/23 2:43 PM [facility] [id number] [facility] 01-29-2023 Note LVM with pt to confi rm shipment from [facility]. F/U confirm shipment from [facility]. Goyo Winston [facility] 03/26/2310:03 AM [facility] 01-29-2023 Note Called and spoke wit h the patient and she has not received medication yet, but the order has been placed from [facility]. We will F/U taco to make sure the medication was received. Melissa Arizmendi, Operations Recruiter 03/15/23 3:49 PM [facility] 01-29-2023 Note Supervising Physicia n & [...] until the end of February (her son's wed) to change medications. She is planning on getting updated labs because she needs to also get them through work for her wellness visit. The patient is planning on getting labs done last week of February. Please follow up on lab results around Feb 26 2023. Eduard Tai, PharmD, BCACP, CSP 01/29/23 8:50 AM [facility] [phone] [facility] 01-29-2023 Note Called pt, she will contact [facility] soon to discuss filling. F/U check rx/shipment status next week Goyo Winston [facility] 231:12 PM [facility] 01-29-2023 Note Prior Authorization for [employer] has been approved 02/26/23-02/27/24. Case ID/Authorization Number:[id number] Must be filled at [facility], sending msg to MD for transfer. Calling pt to discuss filling at [facility]. LVM. F/U contact pt to discuss filling at [facility]. Goyo Winston [facility] 238:19 AM [facility] 01-29-2023 Note I called the patient to ensure that she has received his medication from [facility] and address any questions he may have, lvm. Kaleigh Rosas, [facility] 232:53 PM [facility] 01-29-2023 Note I called and spoke w ith the pt to confirm delivery and she has received medication with no follow up questions. 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 halfway current use of immunosuppressive drug Comprehensive metabolic [...] Scheduling Instructions: The phone number to contact [facility] is Once you have been placed into the phone tree, it will prompt with the (more content not included)... [facility] Evaluation + Plan note No data available for this section [facility] Evaluation note Diagnosis Encounter for repeat Pap smear due to previous insuff cervical cells [facility] No data available for this section [facility] Progress note No data available for this section [facility] Summary Purpose Family History No Family History Records FoundNo Family History Records FoundNo Family History Records FoundNo Family History Records FoundNo Family History Records Found Advance Directives No Advanced Directives Records FoundNo Advanced Directives Records FoundNo Advanced Directives Records FoundNo Advanced Directives Records FoundNo Advanced Directives Records Found Additional Source Comments INFORMATION SOURCE (unrecogn ized section and content) DATE CREATED AUTHOR 03/16/2021 [facility] DATE CREATED AUTHOR AUTHOR'S ORGANIZ ATION 02/15/2023 [facility] DATE CREATED AUTHOR AUTHOR'S ORGANIZ ATION 04/08/2023 [facility] DATE CREATED AUTHOR AUTHOR'S ORGANIZ ATION 08/21/2023 [facility] DATE CREATED AUTHOR AUTHOR'S ORGANIZ ATION 11/17/2023 [facility] EPIC Patient Care team informatio n (unrecognized section and content) 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 [employer] provides no warranty or guarantee of the accuracy or completeness of information in this document.
[2024-01-11 07:12] LABS: Bilirubin Urine NEGATIVE (NEGATIVE); Blood Urine NEGATIVE (NEGATIVE); Clarity Urine CLEAR (CLEAR); Color Urine LT. YELLOW (YELLOW); Glucose Urine UA NEGATIVE (NEGATIVE); Ketones Urine NEGATIVE (NEGATIVE); Leukocyte Esterase Urine MODERATE (NEGATIVE); Nitrite Urine NEGATIVE (NEGATIVE); Protein Urine NEGATIVE (NEG/TRACE); Specific Gravity Urine 1.025 (1.005-1.025); Urobilinogen Urine 0.2 EU/dL (0.2-1.0)
[2024-01-11 07:46] LABS: Basophils Percent Auto 0.5 % (0.2-2.0); Eosinophils Absolute Auto 0.1 10^3/uL (0.0-0.7); Eosinophils Percent Auto 1.2 % (0.9-7.0); Hematocrit 37.8 % (36.0-48.0); Hemoglobin 12.1 g/dL (12.0-16.0); Lymphocytes Absolute Auto 1.7 10^3/uL (1.2-3.8); Mean Corpuscular Hemoglobin 30.5 pg (26.7-34.0); Mean Corpuscular Volume 95.2 fL (81.0-99.0); Mean Platelet Volume 9.9 fL (9.5-13.5); Monocytes Absolute Auto 0.5 10^3/uL (0.3-0.8); Monocytes Percent Auto 12.4 % (1.7-12.0); Neutrophils Percent Auto 46.9 % (43.0-75.0); Platelet Count 339 10^3/uL (150-450); Red Blood Count 3.97 10^6/uL (4.20-5.40); Red Cell Distribution Width 13.2 % (11.0-15.0); White Blood Count 4.3 10^3/uL (4.0-11.0)
[2024-01-11 07:58] LABS: Erythrocyte Sedimentation Rate 57 mm/hr (<=30)
[2024-01-11 08:24] LABS: Alanine Aminotransferase 38 U/L (14-59); Albumin Globulin Ratio 0.8; Albumin Level 3.6 g/dL (3.4-5.0); Alkaline Phosphatase 67 U/L (46-116); Anion Gap 12.4; Aspartate Amino Transferase 26 U/L (15-37); Bilirubin Total 0.6 mg/dL (0.2-1.0); Calcium 9.3 mg/dL (8.5-10.1); Carbon Dioxide 28.3 mmol/L (21.0-32.0); Chloride 102 mmol/L (98-107); Chol HDL Ratio 2.5; Cholesterol 252 mg/dL (<=200); Creatine Kinase 126 U/L (26-192); Estimated GFR (African America >60 (>=60); Estimated GFR (Non-African Ame 58 (>=60); Globulin 4.5 g/dL; Glucose 87 mg/dL (74-106); HDL Cholesterol 101 mg/dL (40-60); Potassium 3.7 mmol/L (3.5-5.1); Sodium 139 mmol/L (136-145); Total Protein 8.1 g/dL (6.4-8.2); Triglycerides 92 mg/dL (<=150); VLDL CHOLESTEROL 18.4 mg/dL
[2024-01-11 08:25] LABS: C Reactive Protein <0.50 mg/dL (<=0.50)
[2024-01-12 12:09] LABS: Anti-dsDNA Antibodies <1 IU/mL (0-9)
[2024-01-12 15:08] LABS: Albumin 3.8 g/dL (2.9-4.4); Alpha-1-Globulin 0.2 g/dL (0.0-0.4); Alpha-2-Globulin 0.7 g/dL (0.4-1.0); Gamma Globulin 1.5 g/dL (0.4-1.8); Protein, Total 7.3 g/dL (6.0-8.5)
== END 2024-01-11 06:54 | disposition home or self-care (01) ==
PROVIDERS: PCP Family Medicine
DX: E78.49 Other hyperlipidemia (principal); M35.01 Sjogren syndrome with keratoconjunctivitis; M05.7A Rheumatoid arthritis with rheumatoid factor of other specified site without organ or systems involvement; M32.19 Other organ or system involvement in systemic lupus erythematosus; N39.0 Urinary tract infection, site not specified
CPT/HCPCS: 36415; 80053; 80061; 81003; 82550; 82570; 84155; 84156; 84165; 85025; 85652; 86140; 86160; 86225; 87086; 87150; 87186

== ENCOUNTER 2024-02-05 09:06 | Emergency (ER) | payer BC, SELFPAY ==
[2024-02-05] VITALS (20 sets, daily range): BP systolic 97–134; BP diastolic 70–97; PULSE 70–156; TEMP 36.6; O2SAT 97–100; BMI 25.7
--- OUTSIDE RECORDS SUMMARY | 2024-02-05 09:16 | XMS_ITS | CCD ---
Author Organization [facility] Care Team Providers Care Trim Setter Helper Name Role Phone HOYLIBBYMARIZA Consulting Unavailable [...] Admitting Unavailable Hoy, Mariza Primary Care Physician [phone] Mariza Wright Referring Unavailable Joselo STARKS Attending Unavailable Joselo STARKS Attending Unavailable Joselo STARKS Attending Unavailable EYAL ALEGRIA Attending Unavailable TOMAS CLINTON I Attending Unavailable TOMAS CLINTON I Attending Unavailable ASHLEIGH ZEE Attending Unavailable Mariza Wright MD Primary Care Provider [phone] FELIX WHITNEY Attending Unavailable FELIX WHTINEY Attending Unavailable EASTON KEENE Attending Unavailable Allergies Allergy Classification Reported Allergen(s) Allergy Type Date of Onset Reaction(s) Facility (2 sources) Benzoyl Peroxide; Translations: [BENZOYL PEROXIDE] Drug Allergy 07-22-20 15 [facility] Repository (1 source) Desonide Drug Allergy 04-05-20 13 [facility] Repository (1 source) Sulfonamides (Antibiotic) Drug allergy (disorder) 04-05-20 13 [facility] Repository (1 source) Misc-Other; Translations: [Misc-Other] Propensity to adverse reactions (disorder) 07-22-20 15 [facility] Repository (3 sources) Sulfonamides (Antibiotic); Translations: [sulfa drugs] Drug allergy Discoloration of skin (finding) [facility] [place] (1 source) Adhesive agent; Translations: [ADHESIVE] Propensity to adverse reactions to drug (disorder) 09-21-20 14 [facility] Repository (2 sources) Sulfamethoxazole / Trimethoprim; Translations: [SULFAMETHOXAZOLE-T RIMETHOPRIM] Drug Allergy 02-02-20 23 Rash [facility] Repository (1 source) Sulfonamides (Antibiotic); Translations: [SULFA (SULFONAMIDE ANTIBIOTICS)] Propensity to adverse reactions to drug (disorder) 09-21-20 14 [facility] Repository (1 source) ADHESIVE TAPE-SILICONES; Translations: [ADHESIVE TAPE-SILICONES] Propensity to adverse reactions to drug (disorder) 10-07-19 22 [facility] Repository (1 source) Benzoyl Peroxide Drug Allergy 09-20-20 23 [facility] Healthcare (1 source) Sulfonamides (Antibiotic) Drug [...] 09-30-2022 Episodic Other aftercare (6 sources) Other 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 (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; Translations: [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 CURRENT DRUG THERAPY] Onset: 08-25-2022 Episodic Other [...] Interpretation Reference Range Facility Follow-Upon 08-19-2023 Follow-Up [id number] Yamileth Small 1970 F Date Provider Department Center 08/19/2023 TOMAS ROBERTO I [facility] No family history on file Level of Service:49608 [place] OFFICE/OUTPATIENT ESTABLISHED MOD MDM 30-39 MIN Reason for Visit and Comments: Follow-up [831170] - Follow up [facility] Orders Onlyon 08-12-2023 Orders Only [id number] Yamileth Small 1970 F Date Provider Department Center 08/12/2023 [id number], HISTORICAL [facility] No family history on file [facility] 36on 08-10-2023 36 Left detailed messag e that labs were placed. Normal [facility] Orders Onlyon 08-10-2023 Orders Only [id number] Yamileth Small 1970 F Date Provider Department [place] 08/10/2023 TOMAS ROBERTO I [facility] No family history on file [facility] 36on 08-05-2023 36 Patient has an apt o n and is wondering if there are any labs she needs to do prior to her visit. Please advise. Thanks! [facility] 36 Patient called [facility] Follow-Upon 06-03-2023 Follow-Up [id number] Yamileth Small denysbarinelson 1970 F Date Provider Department Center 06/03/2023 [id number] TOMAS Osmin [facility] No family history on file Level of Service:15540 [place] OFFICE/OUTPATIENT ESTABLISHED MOD MDM 30-39 MIN () Reason for Visit and Comments: Follow-up [624525] - Follow up [facility] 36on 04-08-2023 36 Last visit pt instru cted to finish current supply and then stop [facility] Ambulatory Visit Summaryon 0 04-07-2023 Ambulatory Visit Summary TEETEE SMALL :1970 Visit Date:04/07/2023 Ambulatory Visit Instructions Your Diagnosis IBS (irritable bowel syndrome) Epigastric abdominal pain Your Care Team Attending Physician - RAUDEL PUENTSE, Joselo Llanes Primary Care Physician - Mariza [...] lupus erythematosus Varicose veins of legs Normal [facility] General Surgery Office/Clini c Noteon 04-07-2023 [...] SARS-CoV-2 (COVID-19) mRNA-1273 vaccine 08/07/2022 Recorded SARSCoV2 mRNA(gysygzanq-ipin-ppptrn) vac 01/01/2022 Recorded SARS-CoV-2 (COVID-19) mRNA-1273 vaccine 06/18/2021 Recorded 2023-02-26: TPV50 SARS-CoV-2 (COVID-19) mRNA-1273 vaccine 10/30/2020 Recorded SARS-CoV-2 (COVID-19) mRNA-1273 vaccine 10/02/2020 Recorded Normal [facility] Comment on above: Result Comment: Elec tronically Signed By: RAUDEL PUENTES, Joselo Barrera\Date and Time Signed: 04/07/23 14:01 EDT Reminderson 04-02-2023 Reminders - From: Cristal Gordon LPN To: GSN - Clinical; Sent: 04/02/2023 11:03:11 EDT Show up: 02/21/2033 07:00:00 EDT Subject: colonoscopy recall Due Date/Time: 03/24/2033 07:00:00 EDT Reminder/Recall Patient due for screening colonoscopy 03/24/2033. Normal [facility] Pathology Noteon 03-29-2023 Pathology Note [id number]#1.00CD:127 Normal [facility] Outside Colonoscopyon 2022 Outside Colonoscopy [id number]#1.00CD:127 [facility] Pre-Certification Formon Pre-Certification Form [id number]#1.00CD:127 [facility] Consent for Procedure/Surger yon 03-05-2023 Consent for Procedure/Surgery [id number]#1.00CD:127 [facility] Facesheeton 03-04-2023 Facesheet [id number]#1.00CD:127 [facility] Ambulatory Visit Summaryon 0 03-03-2023 Ambulatory [...] lupus erythematosus Varicose veins of legs Normal [facility] RAD - CT Reporton 03-03-2023 RAD - CT Report [id number]#1.00CD:127 Normal [facility] Orders Onlyon 03-02-2023 Orders Only [id number] Yamileth Small 1970 F Date Provider Department Center 03/02/2023 [id number] ALEGRIA [facility] No family history on file Normal [facility] Physician Referralon 023 Physician Referral [id number]#1.00CD:127 Normal [facility] CT ABD/PELV W CONon 02-13-20 23 [...] by: IDA SOTO Date: 2023-02-12 09:54 Normal [facility] Orders Onlyon 02-08-2023 Orders Only [id number] Yamileth Small 1970 F Date Provider Department Center 02/08/2023 [id number], HISTORICAL [facility] MED [facility] No family history on file Normal [facility] QUANTIFERON TB GOLD PLUSon 0 02-07-2023 QuantiFERON Criteria Comment Normal [facility] Comment on above: Result Comment: Rehan [...] test. Performed By: #### Q NTTB #### [facility] [address] [place] [address] Dr. Jazmyn Saavedra QuantiFERON Incubation Incubation performed. Normal [facility] Comment on above: Performed By: #### Q NTTB #### [facility] [address] [place] [address] Dr. Jazmyn Saavedra QuantiFERON Mitogen Value 6.87 IU/mL Normal [facility] Comment on above: Performed By: #### Q NTTB #### [facility] [address] [place] [address] Dr. Jazmyn Saavedra QuantiFERON Nil Value 0.00 IU/mL Normal [facility] Comment on above: Performed By: #### Q NTTB #### [facility] [address] [place] [address] Dr. Jazmyn Saavedra QuantiFERON TB1 Ag Value 0.00 IU/mL Normal [facility] Comment on above: Performed By: #### Q NTTB #### [facility] [address] [place] [address] Dr. Jazmyn Saavedra QuantiFERON TB2 Ag Value 0.00 IU/mL Normal [facility] Comment on above: Performed By: #### Q NTTB #### [facility] [address] [place] [address] Dr. Jazmyn Saavedra QuantiFERON-TB Gold Plus Negative Normal Negative [facility] Comment on above: Result Comment: No r esponse to M tuberculosis antigens detected. Infection with M tuberculosis is unlikely, but high risk individuals should be considered for additional testing (ATS/IDSA/CDC Clinical Practice Guidelines, 2017). The reference range is an Antigen minus Nil result of <0.35 IU/mL. Chemiluminescence immunoassay methodology Performed By: #### Q NTTB #### [facility] [address] [place] [address] Dr. Jazmyn Saavedra HEP B COREon 02-06-2023 Hep B Core Ab, Tot Negative Normal Negative [facility] Comment on above: Performed By: #### S EDR #### [facility] [address] [address] [address] Jazmyn Saavedra HEP B SURFACE ANTIGEN SCREEN on 02-06-2023 HBsAg Screen Negative Normal Negative [facility] Comment on above: Performed By: #### H BSANS #### [facility] [address] [place] [address] Dr. Jazmyn Saavedra CBC AUTO DIFFon 02-05-2023 BASO # 0.0 103/ul Normal 0.0-0.1 [facility] Comment on above: Performed By: #### C BC #### [facility] [address] [place] [address] Dr. Jazmyn Saavedra Basophils/100 WBC (Bld) 0.5 % Normal 0.2-2.0 [facility] Comment on above: Performed By: #### C BC #### [facility] [address] [place] [address] Dr. Jazmyn Saavedra EO # 0.0 103/ul Normal 0.0-0.7 [facility] Comment on above: Performed By: #### C BC #### [facility] [address] [place] [address] Dr. Jazmyn Saavedra Eosinophils/100 WBC (Bld) 0.8 % Critically low 0.9-7.0 [facility] Comment on above: Performed By: #### C BC #### [facility] [address] [place] [address] Dr. Jazmyn Saavedra Erythrocyte distribution width (RBC) [Ratio] 13.2 % Normal 11.0-15.0 [facility] Comment on above: Performed By: #### C BC #### [facility] [address] [place] [address] Dr. Jazmyn Saavedra Hematocrit (Bld) [Volume fraction] 41.1 % Normal 36.0-48.0 [facility] Comment on above: Performed By: #### C BC #### [facility] [address] [place] [address] Dr. Jazmyn Saavedra Hemoglobin (Bld) [Mass/Vol] 13.4 g/dL Normal 12.0-16.0 [facility] Comment on above: Performed By: #### C BC #### [facility] [address] [place] [address] Dr. Jazmyn Saavedra IG # 0.01 10e3/ul Normal 0.00-0.03 [facility] Comment on above: Performed By: #### C BC #### [facility] [address] [place] [address] Dr. Jazmyn Saavedra IG % 0.3 % Normal 0.0-0.5 [facility] Comment on above: Performed By: #### C BC #### [facility] [address] [place] [address] Dr. Jazmyn Saavedra LYMPH # 1.2 103/ul Normal 1.2-3.8 [facility] Comment on above: Performed By: #### C BC #### [facility] [address] [place] [address] Dr. Jazmyn Saavedra Lymphocytes/100 WBC (Bld) 31.9 % Normal 20.5-60.0 [facility] Comment on above: Performed By: #### C BC #### [facility] [address] [place] [address] Dr. Jazmyn Saavedra MANUAL DIFF REQ NO Normal [place] Comment on above: Performed By: #### C BC #### [facility] [address] [place] [address] Dr. Jazmyn Saavedra MCH (RBC) [Entitic mass] 30.6 pg Normal 26.7-34.0 [facility] Comment on above: Performed By: #### C BC #### [facility] [address] [place] [address] Dr. Jazmyn Saavedra MCHC (RBC) [Mass/Vol] 32.6 g/dL Normal 29.9-35.2 [facility] Comment on above: Performed By: #### C BC #### [facility] [address] [place] [address] Dr. Jazmyn Saavedra MCV (RBC) [Entitic vol] 93.8 fL Normal 81.0-99.0 [facility] Comment on above: Performed By: #### C BC #### [facility] [address] [place] [address] Dr. Jazmyn Saavedra MONO # 0.5 103/ul Normal 0.3-0.8 [facility] Comment on above: Performed By: #### C BC #### [facility] [address] [place] [address] Dr. Jazmyn Saavedra Monocytes/100 WBC (Bld) 14.1 % Critically high 1.7-12.0 [facility] Comment on above: Performed By: #### C BC #### [facility] [address] [place] [address] Dr. Jazmyn Saavedra NEUT # 1.9 103/ul Normal 1.4-6.5 [facility] Comment on above: Performed By: #### C BC #### [facility] [address] [place] [address] Dr. Jazmyn Saavedra Neutrophils/100 WBC (Bld) 52.4 % Normal 43.0-75.0 [facility] Comment on above: Performed By: #### C BC #### [facility] [address] [place] [address] Dr. Jazmyn Saavedra Platelet mean volume (Bld) [Entitic vol] 9.4 fL Critically low 9.5-13.5 [facility] Comment on above: Performed By: #### C BC #### [facility] [address] [place] [address] Dr. Jazmyn Saavedra PLT 342 103/ul Normal 150-450 [facility] Comment on above: Performed By: #### C BC #### [facility] [address] [place] [address] Dr. Jzamyn Saavedra RBC 4.38 106/ul Normal 4.20-5.40 [facility] Comment on above: Performed By: #### C BC #### [facility] [address] [place] [address] Dr. Jazmyn Saavedra WBC 3.7 103/ul Critically low 4.0-11.0 [facility] Comment on above: Performed By: #### C BC #### [facility] [address] [place] [address] Dr. Jazmyn Saavedra FREE THYROXINE INDEX T7on FTI 3.20 Normal 1.30-4.50 [facility] Comment on above: Performed By: #### S EDR #### [facility] [address] [address] [address] Jazmyn Saavedra T3U 36.0 % Normal 30.0-39.0 [facility] Comment on above: Performed By: #### S EDR #### [facility] [address] [address] [address] Jazmyn Saavedra T4 [Mass/Vol] 8.90 ug/dL Normal 4.80-13.90 [facility] Comment on above: Performed By: #### S EDR #### [facility] [address] [place] [address] Dr. Jazmyn Saavedra GLYCOHEMOGLOBIN A1Con 2022 ADA RECOMMENDATION SEE BELOW Normal [facility] Comment on above: Result Comment: ADA RECOMMENDED LIMIT 4.0 - 6.0 ADA THERAPEUTIC TARGET < 7.0 ACTION SUGGESTED > 7.0 Performed By: #### S EDR #### [facility] [address] [address] [address] Jazmyn Saavedra Glucose [Mass/Vol] 123 mg/dL Normal [facility] Comment on above: Performed By: #### S EDR #### [facility] [address] [place] [address] Dr. Jazmyn Saavedra HbA1c (Bld) [Mass fraction] 5.9 % Normal 4.5-6.2 [facility] Comment on above: Performed By: #### S EDR #### [facility] [address] [place] [address] Dr. Jazmyn Saavedra LIPID PROFILEon 02-05-2023 CHOL-HDL RATIO NORM SEE BELOW Normal [facility] Comment on above: Result Comment: 3.3 - 4.4 LOW RISK 4.4 - 7.1 AVERAGE RISK 7.1 - 11.0 MODERATE RISK >11.0 HIGH RISK Performed By: #### S EDR #### [facility] [address] [place] [address] Dr. Jazmyn Saavedra Cholesterol [Mass/Vol] 256 mg/dL Critically high <=200 [facility] Comment on above: Performed By: #### S EDR #### [facility] [address] [address] [address] Jazmyn Saavedra Cholesterol in HDL [Mass/Vol] 108 mg/dL Critically high 40-60 [facility] Comment on above: Performed By: #### S EDR #### [facility] [address] [address] [address] Jazmyn Saavedra Cholesterol in LDL [Mass/Vol] 139.4 mg/dL Normal [facility] Comment on above: Performed By: #### S EDR #### [facility] [address] [address] [address] Jazmyn Saavedra Cholesterol.total/ Cholesterol in HDL [Mass ratio] 2.4 {ratio} Normal [facility] Comment on above: Performed By: #### S EDR #### [facility] [address] [address] [address] Jazmyn Saavedra HDL NORMAL > or = 60 mg/dl - LO W CARDIOVASCULAR RISK <40 mg/dl - HIGH CARDIOVASCULAR RISK Normal [facility] Comment on above: Performed By: #### S EDR #### [facility] [address] [address] [address] Jazmyn Saavedra LDL CALC NORMAL SEE BELOW Normal [facility] Comment on above: Result Comment: <100 mg/dl OPTIMAL 100 - 129 mg/dl NEAR OR ABOVE OPTIMAL 130 - 159 mg/dl BORDERLINE HIGH 160 - 189 mg/dl HIGH >190 mg/dl VERY HIGH Performed By: #### S EDR #### [facility] [address] [address] [address] Jazmyn Saavedra Triglyceride [Mass/Vol] 43 mg/dL Normal <=150 [facility] Comment on above: Performed By: #### S EDR #### [facility] [address] [address] [address] Jazmyn Saavedra VLDL CALC 8.6 mg/dL Normal [facility] Comment on above: Performed By: #### S EDR #### [facility] [address] [address] [address] Jazmyn Saavedra Orders Onlyon 02-05-2023 Orders Only [id number] Yamileth Small 1970 F Date Provider Department Center 02/05/2023 [id number], HISTORICAL C PHYS MED [facility] No family history on file Normal [facility] PROF 14(COMP METB)on 023 Albumin [Mass/Vol] 4.0 g/dL Normal 3.4-5.0 [facility] Comment on above: Performed By: #### T 7, CMP, LIPID, TSH #### [facility] [address] [address] [address] Jazmyn Saavedra Albumin/Globulin [Mass ratio] 0.9 {ratio} Normal [facility] Comment on above: Performed By: #### T 7, CMP, LIPID, TSH #### [facility] [address] [address] [address] Jazmyn Saavedra ALP [Catalytic activity/Vol] 57 U/L Normal 46-116 [facility] Comment on above: Performed By: #### T 7, CMP, LIPID, TSH #### [facility] [address] [address] [address] Jazmyn Saavedra ALT [Catalytic activity/Vol] 23 U/L Normal 14-59 [facility] Comment on above: Performed By: #### T 7, CMP, LIPID, TSH #### [facility] [address] [address] [address] Jazmyn Saavedra Anion gap [Moles/Vol] 13.8 mmol/L Normal [facility] Comment on above: Performed By: #### T 7, CMP, LIPID, TSH #### [facility] [address] [address] [address] Jazmyn Saavedra AST [Catalytic activity/Vol] 23 U/L Normal 15-37 [facility] Comment on above: Performed By: #### T 7, CMP, LIPID, TSH #### [facility] [address] [address] [address] Jazmyn Saavedra Bilirubin [Mass/Vol] 0.6 mg/dL Normal 0.2-1.0 [facility] Comment on above: Performed By: #### T 7, CMP, LIPID, TSH #### [facility] [address] [place] [address] Dr. Jazmyn Saavedra Calcium [Mass/Vol] 9.6 mg/dL Normal 8.5-10.1 [facility] Comment on above: Performed By: #### T 7, CMP, LIPID, TSH #### [facility] [address] [place] [address] Dr. Jazmyn Saavedra Chloride [Moles/Vol] 100 mmol/L Normal 98-107 [facility] Comment on above: Performed By: #### T 7, CMP, LIPID, TSH #### [facility] [address] [place] [address] Dr. Jazmyn Saavedra CO2 [Moles/Vol] 29.9 mmol/L Normal 21.0-32.0 [facility] Comment on above: Performed By: #### T 7, CMP, LIPID, TSH #### [facility] [address] [place] [address] Dr. Jazmyn Saavedra Creatinine [Mass/Vol] 0.89 mg/dL Normal 0.55-1.02 [facility] Comment on above: Performed By: #### T 7, CMP, LIPID, TSH #### [facility] [address] [place] [address] Dr. Jazmyn Saavedra EGFR-AF MACEDONIAN >60 Normal >=60 [facility] Comment on above: Performed By: #### T 7, CMP, LIPID, TSH #### [facility] [address] [place] [address] Dr. Jazmyn Saavedra EGFR-NON AF MACEDONIAN >60 Normal >=60 [facility] Comment on above: Performed By: #### T 7, CMP, LIPID, TSH #### [facility] [address] [place] [address] Dr. Jazmyn Saavedra Globulin (S) [Mass/Vol] 4.4 g/dL Normal [facility] Comment on above: Performed By: #### T 7, CMP, LIPID, TSH #### [facility] [address] [place] [address] Dr. Jazmyn Saavedra Glucose [Mass/Vol] 89 mg/dL Normal 74-106 [facility] Comment on above: Performed By: #### T 7, CMP, LIPID, TSH #### [facility] [address] [address] [address] Jazmyn Saavedra Potassium [Moles/Vol] 3.7 mmol/L Normal 3.5-5.1 [facility] Comment on above: Performed By: #### T 7, CMP, LIPID, TSH #### [facility] [address] [address] [address] Jazmyn Saavedra Protein [Mass/Vol] 8.4 g/dL Critically high 6.4-8.2 [facility] Comment on above: Performed By: #### T 7, CMP, LIPID, TSH #### [facility] [address] [address] [address] Jazmyn Saavedra Sodium [Moles/Vol] 140 mmol/L Normal 136-145 [facility] Comment on above: Performed By: #### T 7, CMP, LIPID, TSH #### [facility] [address] [place] [address] Dr. Jazmyn Saavedra Urea nitrogen [Mass/Vol] 17.0 mg/dL Normal 7.0-18.0 [facility] Comment on above: Performed By: #### T 7, CMP, LIPID, TSH #### [facility] [address] [address] [address] Jazmyn Saavedra Urea nitrogen/Creatinin e [Mass ratio] 19.1 mg/mg Normal [facility] Comment on above: Performed By: #### T 7, CMP, LIPID, TSH #### [facility] [address] [address] [address] Jazmyn Saavedra TSHon 02-05-2023 TSH 0.984 uIU/mL Normal 0.358-3.740 [facility] Comment on above: Performed By: #### S EDR #### [facility] [address] [address] [address] Jazmyn Saavedra Documentationon 01-29-2023 Documentation [id number] Yamileth Small 1970 F Date Provider Department Center 01/29/2023 EDUARD ALEXANDRE [facility] Yamil Heal No family history on file Reason for Visit and Comments: Specialty Pharmacy Note: [facility] Prescription [Other] [facility] Follow-Upon 01-28-2023 Follow-Up [id number] Yamileth Small 1970 F Date Provider Department Center 01/28/2023 Mary Alice-JAYEYAL HEREDIA [facility] No family history on file Level of Service:43377 [place] OFFICE/OUTPATIENT ESTABLISHED MOD MDM 30-39 MIN (GC) Normal [facility] PAP ACOG PANEL 2: 30 to 65on 10-07-2022 . . Normal [facility] Comment on above: Result Comment: Perf ormed at: [facility] Performed By: #### S EDR #### [facility] [address] [place] [address] Dr. Jazmyn Saavedra Age Gdln ACOG Testing 30-65 Normal [facility] Comment on above: Performed By: #### S EDR #### [facility] [address] [address] [address] Jazmyn Saavedra DIAGNOSIS: Comment Normal [facility] Comment on above: Result Comment: NEGA TIVE FOR INTRAEPITHELIAL LESION OR MALIGNANCY. Performed at: [facility] Performed By: #### S EDR #### [facility] [address] [address] [address] Jazmyn Saavedra HPV Aptima Negative Normal Negative [facility] Comment on above: Result Comment: This nucleic acid amplification test detects fourteen high-risk HPV types (16,18,31,33,35,39,45,51,52,56,58,59,66,68) without differentiation. Performed at: =G Performed By: #### S EDR #### [facility] [address] [address] [address] Jazmyn Saavedra HPV Genotype Reflex Comment Normal [facility] Comment on above: Result Comment: Crit eria not met, HPV Genotype not performed. Performed at: [facility] Performed By: #### S EDR #### [facility] [address] [place] [address] Dr. Jazmyn Saavedra Methodology: Comment Normal [facility] Comment on above: Result Comment: This liquid based ThinPrep(R) pap test was screened with the use of an image guided system. Performed at: [facility] Performed By: #### S EDR #### [facility] [address] [place] [address] Dr. Jazmyn Saavedra Note: Comment Normal [facility] Comment on above: Result Comment: The [...] WB Performed By: #### S EDR #### [facility] [address] [place] [address] Dr. Jazmyn Saavedra Performed by: Comment Normal [facility] Comment on above: Result Comment: Daryl Calhoun, Hot Wire Glass Tube Cutter (ASCP) Performed at: [facility] Performed By: #### S EDR #### [facility] [address] [place] [address] Dr. Jazmyn Saavedra Specimen adequacy: Comment Normal [facility] Comment on above: Result Comment: Sati sfactory for evaluation. Endocervical component may not be distinguished in cases of atrophy. Performed at: [facility] Performed By: #### S EDR #### [facility] [address] [place] [address] Dr. Jazmyn Saavedra Orders Onlyon 08-31-2022 Orders Only [id number] Yamileth Small 1970 F Date Provider Department Center 08/31/2022 [id number], HISTORICAL [facility] PHYS MED [facility] No family history on file Normal [facility] XR DEXA BONE DENSITYon 08-28 XR DEXA [...] GILBERT GEORGE Date: 2022-08-28 08:47 Normal [facility] CBC AUTO DIFFon 08-25-2022 BASO # 0.0 103/ul Normal 0.0-0.1 [facility] Comment on above: Performed By: #### S EDR #### [facility] [address] [place] [address] Dr. Jazmyn Saavedra Basophils/100 WBC (Bld) 0.5 % Normal 0.2-2.0 [facility] Comment on above: Performed By: #### S EDR #### [facility] [address] [address] [address] Jazmyn Saavedra EO # 0.1 103/ul Normal 0.0-0.7 [facility] Comment on above: Performed By: #### S EDR #### [facility] [address] [address] [address] Jazmyn Saavedra Eosinophils/100 WBC (Bld) 1.2 % Normal 0.9-7.0 [facility] Comment on above: Performed By: #### S EDR #### [facility] [address] [place] [address] Dr. Jazmyn Saavedra Erythrocyte distribution width (RBC) [Ratio] 13.2 % Normal 11.0-15.0 [facility] Comment on above: Performed By: #### S EDR #### [facility] [address] [place] [address] Dr. Jazmyn Saavedra Hematocrit (Bld) [Volume fraction] 38.4 % Normal 36.0-48.0 [facility] Comment on above: Performed By: #### S EDR #### [facility] [address] [place] [address] Dr. Jazmyn Saavedra Hemoglobin (Bld) [Mass/Vol] 12.6 g/dL Normal 12.0-16.0 [facility] Comment on above: Performed By: #### S EDR #### [facility] [address] [place] [address] Dr. Jazmyn Saavedra IG # 0.01 10e3/ul Normal 0.00-0.03 [facility] Comment on above: Performed By: #### S EDR #### [facility] [address] [place] [address] Dr. Jazmyn Saavedra IG % 0.2 % Normal 0.0-0.5 [facility] Comment on above: Performed By: #### S EDR #### [facility] [address] [place] [address] Dr. Jazmyn Saavedra LYMPH # 1.7 103/ul Normal 1.2-3.8 [facility] Comment on above: Performed By: #### S EDR #### [facility] [address] [place] [address] Dr. Jazmyn Saavedra Lymphocytes/100 WBC (Bld) 40.8 % Normal 20.5-60.0 [facility] Comment on above: Performed By: #### S EDR #### [facility] [address] [place] [address] Dr. Jazmyn Saavedra MANUAL DIFF REQ NO Normal [facility] Comment on above: Performed By: #### S EDR #### [facility] [address] [place] [address] Dr. Jazmyn Saavedra MCH (RBC) [Entitic mass] 31.0 pg Normal 26.7-34.0 [facility] Comment on above: Performed By: #### S EDR #### [facility] [address] [place] [address] Dr. Jazmyn Saavedra MCHC (RBC) [Mass/Vol] 32.8 g/dL Normal 29.9-35.2 [facility] Comment on above: Performed By: #### S EDR #### [facility] [address] [address] [address] Jazmyn Saavedra MCV (RBC) [Entitic vol] 94.3 fL Normal 81.0-99.0 [facility] Comment on above: Performed By: #### S EDR #### [facility] [address] [address] [address] Jazmyn Saavedra MONO # 0.5 103/ul Normal 0.3-0.8 [facility] Comment on above: Performed By: #### S EDR #### [facility] [address] [address] [address] Jazmyn Saavedra Monocytes/100 WBC (Bld) 11.9 % Normal 1.7-12.0 [facility] Comment on above: Performed By: #### S EDR #### [facility] [address] [place] [address] Dr. Jazmyn Saavedra NEUT # 1.9 103/ul Normal 1.4-6.5 [facility] Comment on above: Performed By: #### S EDR #### [facility] [address] [address] [address] Jazmyn Saavedra Neutrophils/100 WBC (Bld) 45.4 % Normal 43.0-75.0 [facility] Comment on above: Performed By: #### S EDR #### [facility] [address] [address] [address] Jazmyn Saavedra Platelet mean volume (Bld) [Entitic vol] 9.3 fL Critically low 9.5-13.5 [facility] Comment on above: Performed By: #### S EDR #### [facility] [address] [place] [address] Dr. Jazmyn Saavedra PLT 309 103/ul Normal 150-450 [facility] Comment on above: Performed By: #### S EDR #### [facility] [address] [address] [address] Jazmyn Saavedra RBC 4.07 106/ul Critically low 4.20-5.40 [facility] Comment on above: Performed By: #### S EDR #### [facility] [address] [address] [address] Jazmyn Saavedra WBC 4.2 103/ul Normal 4.0-11.0 [facility] Comment on above: Performed By: #### S EDR #### [facility] [address] [address] [address] Jazmyn Saavedra CRPon 08-25-2022 CRP [Mass/Vol] mg/L Normal <=1.0 [facility] Comment on above: Performed By: #### C RP, CMP, LIPID #### [facility] [address] [address] [address] Jazmyn Saavedra LIPID PROFILEon 08-25-2022 CHOL-HDL RATIO NORM SEE BELOW Normal [facility] Comment on above: Result Comment: 3.3 - 4.4 LOW RISK 4.4 - 7.1 AVERAGE RISK 7.1 - 11.0 MODERATE RISK >11.0 HIGH RISK Performed By: #### C RP, CMP, LIPID #### [facility] [address] [address] [address] Jazmyn Saavedra Cholesterol [Mass/Vol] 251 mg/dL Critically high <=200 [facility] Comment on above: Performed By: #### C RP, CMP, LIPID #### [facility] [address] [address] [address] Jazmyn Saavedra Cholesterol in HDL [Mass/Vol] 102 mg/dL Critically high 40-60 [facility] Comment on above: Performed By: #### C RP, CMP, LIPID #### [facility] [address] [address] [address] Jazmyn Saavedra Cholesterol in LDL [Mass/Vol] 135.0 mg/dL Normal [facility] Comment on above: Performed By: #### C RP, CMP, LIPID #### [facility] [address] [place] [address] Dr. Jazmyn Saavedra Cholesterol.total/ Cholesterol in HDL [Mass ratio] 2.5 {ratio} Normal [facility] Comment on above: Performed By: #### C RP, CMP, LIPID #### [facility] [address] [address] [address] Jazmyn Saavedra HDL NORMAL > or = 60 mg/dl - LO W CARDIOVASCULAR RISK <40 mg/dl - HIGH CARDIOVASCULAR RISK Normal [facility] Comment on above: Performed By: #### C RP, CMP, LIPID #### [facility] [address] [address] [address] Jazmyn Saavedra LDL CALC NORMAL SEE BELOW Normal [facility] Comment on above: Result Comment: <100 mg/dl OPTIMAL 100 - 129 mg/dl NEAR OR ABOVE OPTIMAL 130 - 159 mg/dl BORDERLINE HIGH 160 - 189 mg/dl HIGH >190 mg/dl VERY HIGH Performed By: #### C RP, CMP, LIPID #### [facility] [address] [address] [address] Jazmyn Saavedra Triglyceride [Mass/Vol] 70 mg/dL Normal <=150 [facility] Comment on above: Performed By: #### C RP, CMP, LIPID #### [facility] [address] [address] [address] Jazmyn Saavedra VLDL CALC 14.0 mg/dL Normal [facility] Comment on above: Performed By: #### C RP, CMP, LIPID #### [facility] [address] [address] [address] Jazmyn Saavedra Orders Onlyon 08-25-2022 Orders Only [id number] DavidYamileth pattennelson 1970 F Date Provider Department [place] 08/25/2022 [id number], HISTORICAL [facility] No family history on file Normal [facility] PROF 14(COMP METB)on 022 Albumin [Mass/Vol] 3.9 g/dL Normal 3.4-5.0 [facility] Comment on above: Performed By: #### C RP, CMP, LIPID #### [facility] [id number] Jazmyn Saavedra Albumin/Globulin [Mass ratio] 1.0 {ratio} Normal [facility] Comment on above: Performed By: #### C RP, CMP, LIPID #### [facility] [address] [address] [address] Jazmyn Saavedra ALP [Catalytic activity/Vol] 49 U/L Normal 46-116 [facility] Comment on above: Performed By: #### C RP, CMP, LIPID #### [facility] [address] [place] [address] Dr. Jazmyn Saavedra ALT [Catalytic activity/Vol] 17 U/L Normal 14-59 [facility] Comment on above: Performed By: #### C RP, CMP, LIPID #### [facility] [address] [place] [address] Dr. Jazmyn Saavedra Anion gap [Moles/Vol] 10.1 mmol/L Normal [facility] Comment on above: Performed By: #### C RP, CMP, LIPID #### [facility] [address] [place] [address] Dr. Jazmyn Saavedra AST [Catalytic activity/Vol] 19 U/L Normal 15-37 [facility] Comment on above: Performed By: #### C RP, CMP, LIPID #### [facility] [address] [place] [address] Dr. Jazmyn Saavedra Bilirubin [Mass/Vol] 0.5 mg/dL Normal 0.2-1.0 [facility] Comment on above: Performed By: #### C RP, CMP, LIPID #### [facility] [address] [place] [address] Dr. Jazmyn Saavedra Calcium [Mass/Vol] 9.3 mg/dL Normal 8.5-10.1 [facility] Comment on above: Performed By: #### C RP, CMP, LIPID #### [facility] [address] [place] [address] Dr. Jazmyn Saavedra Chloride [Moles/Vol] 103 mmol/L Normal 98-107 [facility] Comment on above: Performed By: #### C RP, CMP, LIPID #### [facility] [address] [place] [address] Dr. Jazmyn Saavedra CO2 [Moles/Vol] 30.1 mmol/L Normal 21.0-32.[address] [facility] Comment on above: Performed By: #### C RP, CMP, LIPID #### [facility] [address] [place] [address] Dr. Jazmyn Saavedra Creatinine [Mass/Vol] 0.80 mg/dL Normal 0.55-1.02 [facility] Comment on above: Performed By: #### C RP, CMP, LIPID #### [facility] [address] [address] [address] Jazmyn Saavedra EGFR-AF MACEDONIAN >60 Normal >=[address] [facility] Comment on above: Performed By: #### C RP, CMP, LIPID #### [facility] [address] [address] [address] Jazmyn Saavedra EGFR-NON AF MACEDONIAN >60 Normal >=60 [facility] Comment on above: Performed By: #### C RP, CMP, LIPID #### [facility] [address] [address] [address] Jazmyn Saavedra Globulin (S) [Mass/Vol] 4.1 g/dL Normal [facility] Comment on above: Performed By: #### C RP, CMP, LIPID #### [facility] [address] [address] [address] Jazmyn Saavedra Glucose [Mass/Vol] 92 mg/dL Normal 74-106 [facility] Comment on above: Performed By: #### C RP, CMP, LIPID #### [facility] [address] [place] [address] Dr. Jazmyn Saavedra Potassium [Moles/Vol] 4.2 mmol/L Normal 3.5-5.1 [facility] Comment on above: Performed By: #### C RP, CMP, LIPID #### [facility] [address] [place] [address] Dr. Jazmyn Saavedra Protein [Mass/Vol] 8.0 g/dL Normal 6.4-8.2 [facility] Comment on above: Performed By: #### C RP, CMP, LIPID #### [facility] [address] [place] [address] Dr. Jazmyn Saavedra Sodium [Moles/Vol] 139 mmol/L Normal 136-145 [facility] Comment on above: Performed By: #### C RP, CMP, LIPID #### [facility] [address] [place] [address] Dr. Jazmyn Saavedra Urea nitrogen [Mass/Vol] 20.0 mg/dL Critically high 7.0-18.0 [facility] Comment on above: Performed By: #### C RP, CMP, LIPID #### [facility] [address] [place] [address] Dr. Jazmyn Saavedra Urea nitrogen/Creatinin e [Mass ratio] 25.0 mg/mg Normal [facility] Comment on above: Performed By: #### C RP, CMP, LIPID #### [facility] [address] [place] [address] Dr. Jazmyn Saavedra SED RATE [facility] 2021 SED RATE 47 mm/hr Critically high <=30 [place] Comment on above: Performed By: #### S EDR #### [facility] [address] [place] [address] Dr. Jazmyn Saavedra ASYMPTOMATIC COVID-19 ANTIGE Non 05-18-2022 EUA Statement SEE BELOW Normal [facility] Comment on above: Result Comment: This [...] sooner. Performed By: #### S EDR #### [facility] [address] [place] [address] Dr. Jazmyn Saavedra SARS-CoV-2 (COVID-19) RNA NILES+probe Ql (Unsp spec) Positive Critically abnormal NEGATIVE [facility] Comment on above: Result Comment: SARS -CoV-2 antigen present; does not rule out coinfection with other pathogens. Performed By: #### S EDR #### [facility] [address] [place] [address] Dr. Jazmyn Saavedra Covid-19 PCR ([facility])on SARS-CoV-2 (COVID-19) RNA NILES+probe Ql (Unsp spec) Detected Critically abnormal NOT DETECTED [facility] Comment on above: Result Comment: This test is not yet approved or cleared by the [place] FDA. When there are no FDA-approved or cleared tests available, and other criteria are met, FDA can make tests available under an emergency access mechanism called an Emergency Use Authorization (EUA). The EUA for this test is supported by the [place] of Health and Human Service's declaration that [...] used). Performed By: #### C VDTBH #### [facility] [address] [address] [address] Jazmyn BARLOW MULTI-CANCER PANELon 02-12-2021 RESULT Results to be mailed directly to physician's office by reference lab. Normal [facility] Comment on above: Result Comment: Test performed by [employer] [address] [place] [address] [phone] No result expected. For billing and tracking purposes only. Performed By: #### 3 [id number] #### [facility] [address] Vital Signs Date Time Vital Sign Value Performing Clinician Facility 11-16-2023 11:39-0500 Body mass index (BMI) [Ratio] 24.96 kg/m2 [employer] DO Work Phone: [facility] 11-16-2023 11:39-0500 Body weight 68.04 kg [employer] Work Phone: [facility] 11-16-2023 11:39-0500 Diastolic blood pressure 72 mm[Hg] Easton Jassi DO Work Phone: [facility] 11-16-2023 11:39-0500 Systolic blood pressure 118 mm[Hg] Easton Jassi DO Work Phone: [facility] 03-03-2023 14:35-0400 Blood Pressure Location Joselo NILL [facility] [place] 03-03-2023 14:35-0400 Diastolic blood pressure 68 mm[Hg] Joselo NILL [facility] [place] 03-03-2023 14:35-0400 Heart rate 68 /min Joselo NILL [facility] [place] 03-03-2023 14:35-0400 Respiratory rate 16 /min Joselo NILL [facility] [place] 03-03-2023 14:35-0400 Systolic blood pressure 114 mm[Hg] Ojselo NILL [facility] Encounters Encounter Date Encounter Type Care Provider Facility Start: 11-16-2023 End: 11-16-2023 ambulatory EASTON KEENE Not Available Start: 11-16-2023 End: 11-16-2023 Postop follow up visit related to original px Easton Jassi DO Work Phone: [facility] Comment on above: Encounter for repeat Pap smear due to previous insuff cervical cells Start: 10-28-2023 End: 10-28-2023 ambulatory FELIX WHITNEY Not Available Start: 09-29-2023 End: 09-29-2023 ambulatory FELIX WHITNEY Not Available Start: 08-19-2023 End: 08-19-2023 ambulatory TOMAS Solorio [facility] Start: 06-03-2023 End: 06-03-2023 ambulatory TOMAS Solorio [facility] Start: 04-07-2023 End: 04-08-2023 ambulatory Joselo STARKS Facility:[facility] Start: 04-07-2023 End: 04-07-2023 Patient encounter procedure Joselo STARKS General [facility]Said [facility] Start: 03-24-2023 End: 03-25-2023 ambulatory Joselo STARKS Facility:CD:[id number] Start: 03-03-2023 End: 03-04-2023 ambulatory Mariza Hoy Facility: [facility] Start: 03-03-2023 End: 03-03-2023 Patient encounter procedure Joselo STARKS General Surgery Nill/Said [facility] Start: 02-18-2023 ambulatory ASHLEIGH [facility] Start: 02-18-2023 ambulatory Mariza Hoy Facility:[facility] Start: 02-12-2023 Encounter for genera l adult medical examination without abnormal findings MARIZA HOY [facility] Start: 02-12-2023 End: 02-13-2023 ambulatory MARIZA WRIGHT Facility:[facility] Start: 02-05-2023 End: 02-06-[address] DOCTOR EKLLOGG Facility:[facility] Start: 02-05-2023 End: 02-06-2023 Encounter for general adult medical examination without abnormal findings MARIZA HOY Facility:[facility] Start: 02-04-2023 End: 02-05-[address] IDA SOTO Facility:[facility] Start: 01-28-2023 End: 01-28-2023 [facility] Start: 09-23-2022 End: 09-23-[address] RUTHANN [...] TOMAS CLINTON Start: 03-24-2023 Colonoscopy Easton [facility] [employer] Work Phone: Start: 03-24-2023 Colonoscopy Joselo STARKS [employer] Start: 03-24-2023 Esophagogastroduodenoscopy Joselo [facility] [employer] Start: 09-23-2022 Microscopic observation [Identifier] in Cervix by Cyto stain Easton Keene [employer] Work Phone: Start: 07-24-2015 Colonoscopy Joselo STARKS [employer] Start: 02-01-2007 Colonoscopy Joselo [facility] [employer] Bilateral mastectomy [facility] Biopsy of breast Joselo SCANLON [employer] section Joselo SCANLON [employer] Excision of cervical intervertebral disc Joselo [employer] Excision of lymph node Tony flori [facility] [employer] Comment on above: left inguinal Excision of salivary gland M marco [facility] [employer] Comment on above: x2 Granuloma (morpholog ic abnormality) Joselo [facility] Comment on above: x 2 History of radiofreq uency ablation operation for arrhythmia Joselo [employer] Total abdominal hyst erectomy with bilateral salpingo-oophorectomy Joselo [employer] Plan of Treatment Date Care Activity Detail Author Start: 03-24-2033 Screening for malign ant neoplasm of colon [facility] Start: 09-23-2027 Screening for malign ant neoplasm of cervix [facility] Start: 01-27-2025 Screening for malign ant neoplasm of colon FIT-DNA [facility] Start: 11-20-2024 End: 11-20-2024 Patient encounter procedure 11/20/2024 4:00 PM EST Office Visit [facility] [address] [place] [id number] Easton Keene, DO [address] [place] [address] [place] [address] [facility] Start: 06-04-2023 Influenza vaccination Influenza Vacc ine (#1) [facility] Start: 2008 Screening for malign ant neoplasm of breast Mammogram [facility] Start: 1968 Screening for malign ant neoplasm of colon [facility] Healthcare Immunizations Immunization Date Immunization Notes Care Provider Fa cility 08-07-2022 SARS-CoV-2 (COVID-19 ) mRNA-1273 vaccine Joselo RAUDEL [facility] 01-01-2022 SARS-CoV-2 mRNA (eizdwgjrxqb-hzpf-riwfi se) vaccine Joselo GHISLAINEL [facility] 06-18-2021 SARS-CoV-2 (COVID-19 ) mRNA-1273 vaccine Joselo SCANLONL [facility] Comment on above: Result Comment: 2022: [id number] 10-30-2020 SARS-CoV-2 (COVID-19 ) mRNA-1273 vaccine Joselo SCANLONL [facility] 10-02-2020 SARS-CoV-2 (COVID-19 ) mRNA-1273 vaccine Joselo SCANLONL [facility] Payers Date Payer Category Payer Unknown [id number] 2022 Unknown BCBS BCBS xxxxxx [id number] 2022-Present [phone] [address] [place] [address] [id number] 2019 Unknown [id number] 1970 Unknown [id number] 2.16.840.1.692879.3.579.2.593 1968 Unknown [id number] 2.16.840.1.126885.3.579.2.593 1968 Unknown [id number] 2.16.840.1.962339.3.579.2.593 1968 Unknown [id number] 2.16.840.1.086170.3.579.2.593 1968 Unknown [id number] 2.16.840.1.561244.3.579.2.593 1968 Unknown [id number] 2.16.840.1.289289.3.579.2.593 1968 Unknown [id number] 2.16.840.1.719116.3.579.2.593 1968 Unknown [id number] 2.16.840.1.698032.3.579.2.593 1968 Unknown [id number] 2.16.840.1.272863.3.579.2.593 1968 Unknown [id number] 2.16.840.1.822433.3.579.2.727 1968 Unknown [id number] 2.16.840.1.145774.3.579.2.727 1968 Unknown [id number] 2.16.840.1.901952.3.579.2.727 1968 Unknown [id number] 2.16.840.1.677621.3.579.2.1259 1968 Unknown [id number] 2.16.840.1.205690.3.579.2.1259 1968 Unknown [id number] 2.16.840.1.293349.3.579.2.1259 1959 Self-pay [id number] Unknown [id number] 2.16.840.1.168932.3.579.2.593 Social History Date Type Detail Facility Start: 03-03-2023 End: 09-24-2023 Tobacco smoking status Never smoked tobacco (finding) [facility] [place] Tobacco smoking status Never [facility] Start: 09-24-2023 Sex Assigned At Female F [facility] Start: 10-28-2023 Alcohol intake Current drinke [...] Facility 03-03-2023 Functional Status N/A [facility] Clinical Notes 01-28-2023 to 11-16-2023 Easton Keene, [...] Easton Keene DO documented in this encounter [facility] 08-19-2023 Note Attestation signed by Tomas Clinton [...] seen with attending physician, Dr. Oz Josue [facility] Medical Student , MS3 There are no diagnoses linked to this encounter. No diagnosis found. No orders of the defined types were placed in this encounter. No results found for this or any previous visit (from the past 36 hour(s)). No follow-ups on file. [facility] 06-03-2023 Note Attestation signed by Tomas Clinton [...] was seen with attending physician, Dr. Oz Qeuen MD Rheumatology Fellow, PGY-5 There are no diagnoses linked to this encounter. No diagnosis found. No orders of the defined types were placed in this encounter. No results found for this or any previous visit (from the past 36 hour(s)). No follow-ups on file. [facility] 03-03-2023 Note Chief Complaint consultation for LLQ [...] History of pericar (more content not included)... [facility] Comment on above: Result Comment: Elec tronically Signed By: RAUDEL PUENTES, Joselo Barrera\Date and Time Signed: 03/03/23 16:35 EDT 02-18-2023 Note Patient ID: Teetee Small is a 53 y.o. female. Primary oncologist: Dr Kat Hernandez Primary Care Provider: Mariza Wright MD Subjective Pt presents alone for annual follow up. 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 Continue on Exemestane daily, nearing end of [...] yo woman dx with LEFT breast IDC [id number] ER +4/WA+4 Her 2 non amplified s/p bilateral mastectomy (right pt choice prophylactic) per Dr Draper. OncotypeDx score of 14-no systemic chemotherapy given. GENETIC TESTING, [facility] Multi-Cancer Panel: no pathogenic mutation identified. Diagnosis: 04/10/2013 Left breast biopsy - Invasive ductal CA, grade 1. DCIS, cribriform type. ER/WA + (>90%), HER-2/julio cesar-negative (ratio 1.2), T: 1c, N: 0, M: x, Oncotype DX score: 14 Treatment to date: Cancer surgery 05/17/2013 Left breast mastectomy with SLN biopsy - Invasive ductal CA, high grade, 1.1cm. 0/8 nodes positive. ER/WA + (4+), HER-2/julio cesar-negative (ratio 1.0). Margins [...] swelling, mass, skin change or tenderness. Comments: Animal Tech offered, declined No signs chest wall recurrence. [...] Statu (more content not included)... [facility] 02-04-2023 Note PROCEDURE: XR SACROI LIAC JOINT 3 VIEWS COMPARISON: None. HISTORY: Rheumatoid factor positive rheumatoid arthritis FINDINGS: SACRUM: No fracture, disruption of the sacral ala line, or cortical irregularity. COCCYX: No fracture or suspicious alignment. SOFT TISSUES: No widening of the sacroiliac joints. No radiopaque foreign body. OTHER: IMPRESSION: No significant abnormality Electronically authenticated by: IDA SOTO Date: 2023-02-04 18:18 [facility] 02-04-2023 Note PROCEDURE: XR HIP LT [...] by: IDA SOTO Date: 2023-02-04 18:17 [facility] 02-04-2023 Note PROCEDURE: XR FOOT R T MIN 3 VIEWS COMPARISON: None. HISTORY: Rheumatoid factor positive rheumatoid arthritis FINDINGS: BONES:No acute fracture or dislocation. Mild enthesopathic spurring of the calcaneus at the Achilles insertion. SOFT TISSUES:Negative. No visible soft tissue swelling. EFFUSION:None visible. OTHER: Negative. IMPRESSION: Mild calcaneal Achilles enthesopathy Electronically authenticated by: IDA SOTO Date: 2023-02-04 18:16 [facility] 01-29-2023 Note TB negative from 02/05 PA submitted via CMMs. Saira Kramer PharmD, BCACP 02/26/23 2:43 PM [facility] [phone] [facility] 01-29-2023 Note LVM with pt to confi rm shipment from [facility]. F/U confirm shipment from [facility]. Goyo Winston [facility] 03/26/2310:03 AM [facility] 01-29-2023 Note Called and spoke wit h the patient and she has not received medication yet, but the order has been placed from [facility]. We will F/U taco to make sure the medication was received. Melissa Arizmendi, Airport Screener 03/15/23 3:49 PM [facility] 01-29-2023 Note Supervising Physicia n & Clinic:?? [...] Tai, PharmD, BCACP, CSP 01/29/23 8:50 AM [facility] [phone] [facility] 01-29-2023 Note Called pt, she will contact [facility] soon to discuss filling. F/U check rx/shipment status next week Goyo Winston [facility] 231:12 PM [facility] 01-29-2023 Note Prior Authorization for [employer] has been approved 02/26/23-02/27/24. Case ID/Authorization Number:[id number] Must be filled at [facility], sending msg to MD for transfer. Calling pt to discuss filling at [facility]. LVM. F/U contact pt to discuss filling at [facility]. Goyo Winston [facility] 238:19 AM [facility] 01-29-2023 Note I called the patient to ensure that she has received his medication from [facility] and address any questions he may have, lvm. Kaleigh Rosas, [facility] 232:53 PM [facility] 01-29-2023 Note I called and spoke w ith the pt to confirm delivery and she has received medication with no follow up questions. Melissa Arizmendi, Airport Screener 03/30/23 10:09 AM [facility] 01-28-2023 Note Attestation signed by Tomas Clinton [...] Diagnoses and all orders for this visit: longterm current use of immunosuppressive drug - Comprehensive [...] - Zoster, Recombinant (Shingrix) Diagnosis Plan 1. longterm current use of immunosuppressive drug Comprehensive metabolic [...] Scheduling Instructions: The phone number to contact [facility] Radiology is Once you have been placed into the phone tree, it will prompt with the (more content not included)... [facility] Evaluation + Plan note No data available for this section [facility] [place] Evaluation note Diagnosis Encounter for repeat Pap smear due to previous insuff cervical cells documented in this [facility] No data available for this section [facility] [place] Progress note No data available for this section [facility] [place] Summary Purpose Family History No Family History Records FoundNo Family History Records FoundNo Family History Records FoundNo Family History Records FoundNo Family History Records Found Advance Directives No Advanced Directives Records FoundNo Advanced Directives Records FoundNo Advanced Directives Records FoundNo Advanced Directives Records FoundNo Advanced Directives Records Found Additional Source Comments INFORMATION SOURCE (unrecogn ized section and content) DATE CREATED AUTHOR 03/16/2021 [facility] DATE CREATED AUTHOR AUTHOR'S ORGANIZ ATION 02/15/2023 [facility] DATE CREATED AUTHOR AUTHOR'S ORGANIZ ATION 04/08/2023 [facility] DATE CREATED AUTHOR AUTHOR'S ORGANIZ ATION 08/21/2023 [facility] DATE CREATED AUTHOR AUTHOR'S ORGANIZ ATION 11/17/2023 [facility] EPIC Patient Care team informatio n (unrecognized section and content) 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 [employer] provides no warranty or guarantee of the accuracy or completeness of information in this document.
--- NOTE | 2024-02-05 09:19 | ECG_ITS ---
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
--- NOTE | 2024-02-05 09:34 | CT_ITS ---
[address] [address] Patient Name: MANOHAR DUDLEY MRN: [id number] date: 1970 Sex: F Assigned Patient Location: ER Current Patient Location: Accession/Order Number: [id number] Exam Date: 02/05/2024 09:28 Report Date: 02/05/2024 10:53 At the request of: HEIDY TELLEZ Procedure: CT angio chest EXAM: CT angio chest HISTORY: Rule out PE, SOB, and tachycardia. COMPARISON: 01/27/2022. TECHNIQUE: Dose reduction techniques were achieved by using automated exposure control and/or adjustment of mA and/or kV according to patient size and/or use of iterative reconstruction technique.CTA examination of the chest. 3-D reconstructed images and MIP images were obtained. FINDINGS: No acute aortic abnormality. No aortic dissection. No aortic aneurysm. Heart size is normal. No pericardial effusion. No central pulmonary embolism. No supraclavicular adenopathy. No axillary adenopathy. No mediastinal adenopathy. Cyst of the right kidney upper pole measuring 2.8 cm. No acute abnormality of the visualized portions of the upper abdomen. Mild posterior dependent atelectasis of the lower lobes. Normal alignment of the thoracic spine. Partially visualized lower cervical spine ACDF hardware. No acute osseous abnormality. CT/CT angio chest IMPRESSION: 1. No acute aortic abnormality. No central pulmonary embolism. 2. No focal lung consolidation. 3. No large pulmonary lung nodules or masses. Electronically authenticated by: TANA GOODEN Date: 02/05/2024 10:53
[2024-02-05 09:37] LABS: Basophils Percent Auto 0.6 % (0.2-2.0); Eosinophils Absolute Auto 0.1 10^3/uL (0.0-0.7); Eosinophils Percent Auto 1.7 % (0.9-7.0); Hematocrit 40.4 % (36.0-48.0); Hemoglobin 13.3 g/dL (12.0-16.0); Immature Granulocytes Abs Auto 0.01 10^3/uL (0.00-0.03); Immature Granulocytes Pct Auto 0.2 % (0.0-0.5); Lymphocytes Absolute Auto 1.5 10^3/uL (1.2-3.8); Lymphocytes Percent Auto 31.3 % (20.5-60.0); Mean Corpuscular HGB Conc 32.9 g/dL (29.9-35.2); Mean Corpuscular Hemoglobin 30.6 pg (26.7-34.0); Mean Corpuscular Volume 92.9 fL (81.0-99.0); Mean Platelet Volume 9.7 fL (9.5-13.5); Monocytes Absolute Auto 0.9 10^3/uL (0.3-0.8); Monocytes Percent Auto 18.4 % (1.7-12.0); Neutrophils Absolute Auto 2.2 10^3/uL (1.4-6.5); Neutrophils Percent Auto 47.8 % (43.0-75.0); Platelet Count 382 10^3/uL (150-450); Red Blood Count 4.35 10^6/uL (4.20-5.40); Red Cell Distribution Width 13.2 % (11.0-15.0); White Blood Count 4.7 10^3/uL (4.0-11.0)
[2024-02-05 09:45] LABS: Magnesium 2.4 mg/dL (1.8-2.4)
[2024-02-05 09:52] LABS: Alanine Aminotransferase 60 U/L (14-59); Albumin Globulin Ratio 0.8; Albumin Level 3.9 g/dL (3.4-5.0); Alkaline Phosphatase 81 U/L (46-116); Aspartate Amino Transferase 39 U/L (15-37); Bilirubin Total 0.5 mg/dL (0.2-1.0); Calcium 9.7 mg/dL (8.5-10.1); Carbon Dioxide 25.9 mmol/L (21.0-32.0); Chloride 102 mmol/L (98-107); Estimated GFR (African America >60 (>=60); Estimated GFR (Non-African Ame 57 (>=60); Glucose 122 mg/dL (74-106); Potassium 3.9 mmol/L (3.5-5.1); Sodium 139 mmol/L (136-145); Total Protein 8.9 g/dL (6.4-8.2)
[2024-02-05 09:54] LABS: INR 0.99; Partial Thromboplastin Time 27.1 sec (22.3-36.2); Prothrombin Time 10.5 sec (9.0-11.6)
[2024-02-05 09:55] LABS: Troponin I High Sensitivity 4.9 pg/mL (4.0-51.3)
--- NOTE | 2024-02-05 10:25 | ECG_ITS ---
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
[2024-02-05 10:59] LABS: Troponin I High Sensitivity 4.7 pg/mL (4.0-51.3)
--- NOTE | 2024-02-05 11:13 | ED.GENADUL1 ---
HPI HPI - General Adult General Chief complaint: Chest Pain Stated complaint: CHEST PAIN Time Seen by Provider: 02/05/24 09:09 Source: patient Mode of arrival: Wheelchair Limitations: no limitations History of Present Illness HPI narrative: 54-year-old female to the emergency department with chief complaint palpitations, shortness of breath. Symptoms began this morning. She had similar episode week ago. She had this in the past and was told that she had atrial fibrillation. This was remotely and was believed to be triggered by a medication. She's not had any atrial fibrillation since. She does not follow cardiology. She has a history of lupus. No history of coronary artery disease. She is otherwise at her baseline health. Related Data Home Medications ?Medication ?Instructions ?Recorded ?Confirmed aspirin 81 mg tablet,delayed 81 mg PO DAILY 03/16/23 02/05/24 release (Adult Aspirin Regimen) calcium carb-ergocalciferol (vit tab PO 03/16/23 D2) 600 mg calcium-200 unit tablet cholecalciferol (vitamin D3) 25 25 mcg PO DAILY 03/16/23 02/05/24 mcg (1,000 unit) capsule levothyroxine 100 mcg capsule 100 mcg PO DAILY 03/16/23 02/05/24 liothyronine 5 mcg tablet (Cytomel) 5 mcg PO DAILY 03/16/23 02/05/24 magnesium oxide 500 mg capsule 500 mg PO DAILY 03/16/23 02/05/24 pantoprazole 40 mg tablet,delayed 40 mg PO DAILY 03/16/23 02/05/24 release (Protonix) tofacitinib 11 mg tablet,extended 11 mg PO DAILY 03/16/23 02/05/24 release 24 hr (Xeljanz XR) Previous Rx's ?Medication ?Instructions ?Recorded metoprolol tartrate 25 mg tablet 12.5 mg (1/2 x 25 mg) PO BID PRN 02/05/24 HR >110, in afib with SBP >90 #10 tabs Allergies Allergy/AdvReac Type Severity Reaction Status Date / Time adhesive Allergy Rash Verified 03/16/23 15:06 benzoyl peroxide Allergy Rash Verified 03/16/23 15:06 Sulfa (Sulfonamide Allergy Rash Verified 03/16/23 15:06 Antibiotics) Opioid HPI Opioid Management Most Recent Opioid Data: Last Pain Scale 7 02/05/24 09:17 Review of Systems ROS Status of ROS 10 or more systems reviewed and unremarkable except as noted in history and below [facility] Medical History (Updated 02/05/24 @ 11:16 by Jayden Hinkle MD) Varicose veins of both lower extremities ?I83.93 - Asymptomatic varicose veins of bilateral lower extremities (ICD-10) PCOS (polycystic ovarian syndrome) ?E28.2 - Polycystic ovarian syndrome (ICD-10) DDD (degenerative disc disease) Supraventricular tachycardia ?I47.1 - Supraventricular tachycardia (ICD-10) Sjogren syndrome with inflammatory arthritis ?M35.05 - Sjogren syndrome with inflammatory arthritis (ICD-10) Raynauds phenomenon ?I73.00 - Raynaud's syndrome without gangrene (ICD-10) Pericarditis ?I31.9 - Disease of pericardium, unspecified (ICD-10) Carditis ?I51.89 - Other ill-defined heart diseases (ICD-10) Diffuse connective tissue disease ?M35.9 - Systemic involvement of connective tissue, unspecified (ICD-10) Cervical radiculopathy ?M54.12 - Radiculopathy, cervical region (ICD-10) Epigastric pain ?R10.13 - Epigastric pain (ICD-10) Abdominal pain ?R10.9 - Unspecified abdominal pain (ICD-10) Change in bowel habits ?R19.4 - Change in bowel habit (ICD-10) Breast cancer ?C50.919 - Malignant neoplasm of unspecified site of unspecified female breast (ICD-10) Rheumatoid arthritis ?M06.9 - Rheumatoid arthritis, unspecified (ICD-10) COVID-19 ?U07.1 - COVID-19 (ICD-10) Reactive airway disease ?J45.909 - Unspecified asthma, uncomplicated (ICD-10) Migraine ?G43.909 - Migraine, unspecified, not intractable, without status migrainosus (ICD-10) Hypothyroidism ?E03.9 - Hypothyroidism, unspecified (ICD-10) Lupus ?M32.9 - Systemic lupus erythematosus, unspecified (ICD-10) Surgical History (Updated 03/16/23 @ 15:21 by Kaleigh West NP) History of cardiac radiofrequency ablation ?Z98.890 - Other specified postprocedural states (ICD-10) H/O lymph node excision ?Z98.890 - Other specified postprocedural states (ICD-10) History of hysterectomy ?Z90.710 - Acquired absence of both cervix and uterus (ICD-10) History of section ?Z98.891 - History of uterine scar from previous surgery (ICD-10) History of section ?Z98.891 - History of uterine scar from previous surgery (ICD-10) History of spinal surgery ?Z98.890 - Other specified postprocedural states (ICD-10) History of colonoscopy ?Z98.890 - Other specified postprocedural states (ICD-10) H/O mastectomy ?Z90.10 - Acquired absence of unspecified breast and nipple (ICD-10) History of breast biopsy ?Z98.890 - Other specified postprocedural states (ICD-10) Family History (Updated 03/16/23 @ 15:14 by Kaleigh West NP) Other Family history of coronary artery disease Family history of diabetes mellitus Family history of heart disease Family history of myocardial infarction Family history of stroke Family history of uterine cancer Social History (Updated 03/16/23 @ 15:08 by Kaleigh West NP) Within the past year, how often did you have a drink containing alcohol: monthly or less Smoking status: Never smoker Non-prescribed substance use: denies use Previous occupational history: [employer] Highest level of school completed/degree received: Bachelor's degree Exam Narrative Exam Narrative: VITALS: I have reviewed the triage vital signs. GENERAL: Well developed, well appearing adult in no acute distress. NEURO: Alert and oriented. Moves all extremities. Face is symmetric and expressive. EYES: PERRL. No scleral icterus or conjunctival injection. No discharge. HENT: Normocephalic, atraumatic. Hearing is grossly intact. Nares grossly patent and without discharge. Mucous membranes moist. NECK: No JVD. Patient moves neck without restriction. CARDIO: Tachycardic. Regular rhythm.No murmur, rub, or gallop. Pulses equal bilaterally in the upper and lower extremity. No lower extremity edema. PULM: Lungs clear to auscultation in all [place]. No wheezes, rales, or rhonchi. No conversational dyspnea. No splinting, stridor, or accessory muscle use. GI/: Abdomen is soft and non-tender. Normoactive bowel sounds. EXTREMITIES: Symmetric muscle bulk. No joint swelling. No clubbing, cyanosis, or deformity. SKIN: Warm and dry. Normal turgor. No rash or lesions appreciated. PSYCH: Anxious Constitutional Vital Signs, click to edit/add: Last Vital Signs Temp 97.9 F 02/05/24 09:22 Pulse 76 02/05/24 11:30 Resp 19 02/05/24 11:30 BP 114/74 02/05/24 11:30 Pulse Ox 98 02/05/24 11:20 Course Vital Signs Vital signs: Vital Signs Pulse Rate 123 H 02/05/24 09:10 Respiratory Rate 18 02/05/24 09:10 Blood Pressure 134/97 H 02/05/24 09:10 Pulse Oximetry 100 02/05/24 09:10 Temperature 97.9 F 02/05/24 09:22 Pulse Rate 76 02/05/24 11:30 Respiratory Rate 19 02/05/24 11:30 Blood Pressure 114/74 02/05/24 11:30 Pulse Oximetry 98 02/05/24 11:20 Medical Decision Making MDM Narrative Medical decision making narrative: 54-year-old female to the emergency department to complain of Palpitations, shortness of breath. Tachycardic, otherwise stable vitals. The patient is afebrile. Given her shortness of breath, tachycardia will receive CTA chest To rule out PE. She is not hypoxic. Her lungs are clear to auscultation. CBC and chemistries are major abnormalities. Her magnesium level is normal. Her CT is without any evidence of pulmonary embolism. EKG did show atrial fibrillation. Lopressor was ordered for the patient however she did spontaneously convert. I called and discussed with Dr. Correia. Keira of 1 for gender only. He recommended against anticoagulation at this time. Baby aspirin. Lopressor as needed. Discussed with the patient. She'll follow-up in office cardiology. Toprol prescription is given. Return precautions were discussed. All questions were answered. The patient was discharged home. Medical Records Medical records reviewed: Yes I reviewed the patient's medical records Lab Data Lab results reviewed: Yes I reviewed the patient's lab results Labs: Lab Results 02/05/24 02/05/24 Range/Units 09:25 10:31 WBC 4.7 (4.0-11.0) 10^3/uL RBC 4.35 (4.20-5.40) 10^6/uL Hgb 13.3 (12.0-16.0) g/dL Hct 40.4 (36.0-48.0) % MCV 92.9 (81.0-99.0) fL MCH 30.6 (26.7-34.0) pg MCHC 32.9 (29.9-35.2) g/dL RDW 13.2 (11.0-15.0) % Plt Count 382 (150-450) 10^3/uL MPV 9.7 (9.5-13.5) fL Neut % (Auto) 47.8 (43.0-75.0) % Lymph % (Auto) 31.3 (20.5-60.0) % [place] % (Auto) 18.4 H (1.7-12.0) % Eos % (Auto) 1.7 (0.9-7.0) % Baso % (Auto) 0.6 (0.2-2.0) % Neut # (Auto) 2.2 (1.4-6.5) 10^3/uL Lymph # (Auto) 1.5 (1.2-3.8) 10^3/uL [place] # (Auto) 0.9 H (0.3-0.8) 10^3/uL Eos # (Auto) 0.1 (0.0-0.7) 10^3/uL Baso # (Auto) 0.0 (0.0-0.1) 10^3/uL Abs Immat Gran (auto) 0.01 (0.00-0.03) 10^3/uL Imm/Tot Granulo (auto) 0.2 (0.0-0.5) % PT 10.5 (9.0-11.6) sec INR 0.99 APTT 27.1 (22.3-36.2) sec Sodium 139 (136-145) mmol/L Potassium 3.9 (3.5-5.1) mmol/L Chloride 102 (98-107) mmol/L Carbon Dioxide 25.9 (21.0-32.0) mmol/L Anion Gap 15.0 BUN 17.0 (7.0-18.0) mg/dL Creatinine 1.00 (0.55-1.02) mg/dL Est GFR ( Amer) >60 (>=60) Est GFR (Non-Af Amer) 57 L (>=60) BUN/Creatinine Ratio 17.0 Glucose 122 H (74-106) mg/dL Calcium 9.7 (8.5-10.1) mg/dL Magnesium 2.4 (1.8-2.4) mg/dL Total Bilirubin 0.5 (0.2-1.0) mg/dL AST 39 H (15-37) U/L ALT 60 H (14-59) U/L Alkaline Phosphatase 81 (46-116) U/L Troponin I High Sens 4.9 4.7 (4.0-51.3) pg/mL Total Protein 8.9 H (6.4-8.2) g/dL Albumin 3.9 (3.4-5.0) g/dL Globulin 5.0 g/dL Albumin/Globulin Ratio 0.8 Lipase 43.0 (16.0-77.0) U/L Imaging Data CT scan - chest: Attestation: I have reviewed the pertinent imaging results. Radiologist's impression: ITS Impressions Chest CTA 02/05/24 09:34 IMPRESSION: 1. No acute aortic abnormality. No central pulmonary embolism. 2. No focal lung consolidation. 3. No large pulmonary lung nodules or masses. Electronically authenticated by: TANA GOODEN Date: 02/05/2024 10:53 ECG Data Attestation: I personally reviewed and interpreted this ECG as follows: (Atrial fibrillation the rate of one thirty-one. No STEMI. QTC three sixty-one.) Discharge Plan Discharge Stand Alone Forms: Portal Instructions Chief Complaint: Chest Pain Clinical Impression: AF (paroxysmal atrial fibrillation) Patient Disposition: Home, Self-Care Time of Disposition Decision: 11:15 Condition: Good Mode of Transportation: Private Vehicle Prescriptions / Home Meds: New metoprolol tartrate 25 mg tablet 12.5 mg PO BID PRN (Reason: HR >110, in afib with SBP >90) Qty: 10 0RF No Action aspirin [Adult Aspirin Regimen] 81 mg tablet,delayed release (DR/EC) 81 mg PO DAILY levothyroxine 100 mcg capsule 100 mcg PO DAILY liothyronine [Cytomel] 5 mcg tablet 5 mcg PO DAILY magnesium oxide 500 mg capsule 500 mg PO DAILY pantoprazole [Protonix] 40 mg tablet,delayed release (DR/EC) 40 mg PO DAILY Xeljanz XR 11 mg tablet extended release 24 hr 11 mg PO DAILY calcium carbonate-vitamin D2 600 mg calcium- 200 unit tablet PO cholecalciferol (vitamin D3) 25 mcg (1,000 unit) capsule 25 mcg PO DAILY Print Language: [place] Instructions: A-fib (Atrial Fibrillation) (ED) Additional Instructions: Follow up with cardiology in office in the next week. Continue taking her aspirin daily. Take metoprolol as needed if you are in atrial fibrillation. Return to the Emergency Department with new or worsening symptoms. Referrals: Navi Wright MD [Primary Care Provider] - 1 week Hiram Krause MD [Physician] - 1 week Discharge Date/Time: 02/05/24 11:44
== END 2024-02-05 11:44 | disposition home or self-care (01) ==
PROVIDERS: Emergency Provider Student in an Organized Health Care Education/Training Program; PCP Family Medicine
DX: I48.0 Paroxysmal atrial fibrillation (principal); M32.9 Systemic lupus erythematosus, unspecified; E03.9 Hypothyroidism, unspecified; M35.05 Sjogren syndrome with inflammatory arthritis; I73.00 Raynaud's syndrome without gangrene; M54.12 Radiculopathy, cervical region; M06.9 Rheumatoid arthritis, unspecified; E28.2 Polycystic ovarian syndrome; Z79.82 Long term (current) use of aspirin; Z79.899 Other long term (current) drug therapy; Z79.890 Hormone replacement therapy; Z85.3 Personal history of malignant neoplasm of breast; Z86.16 Personal history of COVID-19; Z90.710 Acquired absence of both cervix and uterus; Z90.10 Acquired absence of unspecified breast and nipple
CPT/HCPCS: 36415; 71275; 80053; 83690; 83735; 84484; 85025; 85610; 85730; 93005; 99285; Q9967

== ENCOUNTER 2024-02-10 12:11 | Outpatient (OUT) | payer BC, SELFPAY | END 2024-02-10 12:12 | disposition home or self-care (01) | LOC: CARD 12:11 | PROVIDERS: PCP Family Medicine; Visit Provider Family Medicine | DX: R07.9 Chest pain, unspecified (principal) | CPT/HCPCS: 93246 ==

== ENCOUNTER 2024-02-23 07:33 | Outpatient (OUT) | payer BC, SELFPAY ==
--- OUTSIDE RECORDS SUMMARY | 2024-02-23 07:37 | XMS_ITS | CCD ---
Author Organization [facility] Care Team Providers Care Textbook Associate Name Role Phone HOY, MARIZA Consulting Unavailable HOY, MARIZA Primary [...] Unavailable Mariza Wright MD Primary Care Provider [phone] FELIX WHITNEY Attending Unavailable FELIX WHITNEY Attending Unavailable EASTON KEENE Attending Unavailable Allergies Allergy Classification Reported Allergen(s) Allergy Type Date of Onset Reaction(s) Facility (2 sources) Benzoyl Peroxide; Translations: [BENZOYL PEROXIDE] Drug Allergy 07-22-20 15 [facility] Repository (1 source) Desonide Drug Allergy 04-05-20 13 [facility] Repository (1 source) Sulfonamides (Antibiotic) Drug allergy (disorder) 04-05-20 13 [facility] Repository (1 source) Misc-Other; Translations: [Misc-Other] Propensity to adverse reactions (disorder) 07-22-20 15 [facility] Repository (3 sources) Sulfonamides (Antibiotic); Translations: [sulfa drugs] Drug allergy Discoloration of skin (finding) [facility] (1 source) Adhesive agent; Translations: [ADHESIVE] Propensity to adverse reactions to drug (disorder) 09-21-20 14 [facility] Repository (2 sources) Sulfamethoxazole / Trimethoprim; Translations: [SULFAMETHOXAZOLE-T RIMETHOPRIM] Drug Allergy 02-02-20 23 Rash [facility] Repository (1 source) Sulfonamides (Antibiotic); Translations: [SULFA (SULFONAMIDE ANTIBIOTICS)] Propensity to adverse reactions to drug (disorder) 09-21-20 14 [facility] Repository (1 source) ADHESIVE TAPE-SILICONES; Translations: [ADHESIVE TAPE-SILICONES] Propensity to adverse reactions to drug (disorder) 10-07-19 22 [facility] Repository (1 source) Benzoyl Peroxide Drug Allergy 09-20-20 23 [facility] (1 source) Sulfonamides (Antibiotic) Drug Allergy [...] take 1 capsule by mouth in the m orning Magnesium Oxide -Mg Supplement (RA Magnesium) [...] 09-30-2022 Episodic Other aftercare (6 sources) Other snf (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; Translations: [OTH USP CURRENT DRUG THERAPY] Onset: 08-25-2022 Episodic Other [...] Interpretation Reference Range Facility Follow-Upon 08-19-2023 Follow-Up [id number] Yamileth Small 1970 F Date Provider Department [place] 08/19/2023 TOMAS ROBERTO I [facility] family history on file Level of Service:21541 [place] OFFICE/OUTPATIENT ESTABLISHED MOD MDM 30-39 MIN Reason for Visit and Comments: Follow-up [646893] - Follow up [facility] Orders Onlyon 08-12-2023 Orders Only [id number] Yamileth Small 1970 F Date Provider Department [place] 08/12/2023 [id number], HISTORICAL [facility] PRIM [facility] No family history on file [facility] 36on 08-10-2023 36 Left detailed messag e that labs were placed. Normal [facility] Orders Onlyon 08-10-2023 Orders Only [id number] Yamileth Small 1970 F Date Provider Department [place] 08/10/2023 TOMAS ROBERTO I [facility] No family history on file [facility] 36on 08-05-2023 36 Patient has an apt o n and is wondering if there are any labs she needs to do prior to her visit. Please advise. Thanks! [facility] 36 Patient called [facility] Follow-Upon 06-03-2023 Follow-Up [id number] Yamileth Small 1970 F Date Provider Department Center 06/03/2023 [id number] CLINTON I [facility] No family history on file Level of Service:67156 [place] OFFICE/OUTPATIENT ESTABLISHED MOD MDM 30-39 MIN () Reason for Visit and Comments: Follow-up [[id number]] - Follow up [facility] 36on 04-08-2023 36 Last visit pt instru cted to finish current supply and then stop [facility] Ambulatory Visit Summaryon 0 04-07-2023 Ambulatory Visit Summary LUIS ENRIQUEBESSY LANDINTyrone Dhaliwal :1970 Visit Date:04/07/2023 Ambulatory Visit Instructions Your [...] lupus erythematosus Varicose veins of legs Normal [facility] General Surgery Office/Clini c Noteon 04-07-2023 [...] SARS-CoV-2 (COVID-19) mRNA-1273 vaccine 08/07/2022 Recorded SARSCoV2 mRNA(qshumuitx-yiqu-ryqaft) vac 01/01/2022 Recorded SARS-CoV-2 (COVID-19) mRNA-1273 vaccine 06/18/2021 Recorded 2023-02-26: TPV50 SARS-CoV-2 (COVID-19) mRNA-1273 vaccine 10/30/2020 Recorded SARS-CoV-2 (COVID-19) mRNA-1273 vaccine 10/02/2020 Recorded Normal [facility] Comment on above: Result Comment: Elec tronically Signed By: RAUDEL PUENTES, Joselo Barrera\Date and Time Signed: 04/07/23 14:01 EDT Reminderson 04-02-2023 Reminders - From: Cristal Gordon LPN To: GSN - Clinical; Sent: 04/02/2023 11:03:11 EDT Show up: 02/21/2033 07:00:00 EDT Subject: colonoscopy recall Due Date/Time: 03/24/2033 07:00:00 EDT Reminder/Recall Patient due for screening colonoscopy 03/24/2033. Normal [facility] Pathology Noteon 03-29-2023 Pathology Note [id number]#1.00CD:127 Normal [facility] Outside Colonoscopyon 2022 Outside Colonoscopy [id number]#1.00CD:127 Normal [facility] Pre-Certification Formon Pre-Certification Form [id number]#1.00CD:127 [facility] Consent for Procedure/Surger yon 03-05-2023 Consent for Procedure/Surgery [id number]#1.00CD:127 [facility] Facesheeton 03-04-2023 Facesheet [id number]#1.00CD:127 Normal [facility] Ambulatory Visit Summaryon 0 03-03-2023 Ambulatory [...] lupus erythematosus Varicose veins of legs Normal [facility] RAD - CT Reporton 03-03-2023 RAD - CT Report [id number]#1.00CD:127 Normal [facility] Orders Onlyon 03-02-2023 Orders Only [id number] Yamileth Small 1970 F Date Provider Department Center 03/02/2023 Mary Alice-EYAL ALEGRIA [facility] No family history on file Normal [facility] Physician Referralon 023 Physician Referral [id number]#1.00CD:127 Normal [facility] CT ABD/PELV W CONon 02-13-20 23 [...] by: IDA SOTO Date: 2023-02-12 09:54 Normal [facility] Orders Onlyon 02-08-2023 Orders Only [id number] Yamileth Small 1970 F Date Provider Department Center 02/08/2023 [id number], HISTORICAL [facility] MED [facility] No family history on file Normal [facility] QUANTIFERON TB GOLD PLUSon 0 02-07-2023 QuantiFERON Criteria Comment Normal [facility] Comment on above: Result Comment: Rehan tiFERON-TB [...] By: #### Q NTTB #### [facility] Laboratory [address] [place] [address] Dr. Jazmyn Saavedra QuantiFERON Incubation Incubation performed. Normal [facility] Comment on above: Performed By: #### Q NTTB #### [facility] Laboratory [address] [place] [address] Dr. Jazmyn Saavedra QuantiFERON Mitogen Value 6.87 IU/mL Normal [facility] Comment on above: Performed By: #### Q NTTB #### [facility] Laboratory [address] [place] [address] Dr. Jazmyn Saavedra QuantiFERON Nil Value 0.00 IU/mL Normal [facility] Comment on above: Performed By: #### Q NTTB #### [facility] Laboratory [address] [place] [address] Dr. Jazmyn Saavedra QuantiFERON TB1 Ag Value 0.00 IU/mL Normal [facility] Comment on above: Performed By: #### Q NTTB #### [facility] Laboratory [address] [place] [address] Dr. Jazmyn Saavedra QuantiFERON TB2 Ag Value 0.00 IU/mL [facility] Comment on above: Performed By: #### Q NTTB #### [facility] Laboratory [address] [place] [address] Dr. Jazmyn Saavedra QuantiFERON-TB Gold Plus Negative Normal Negative [facility] Comment on above: Result Comment: No r esponse to M tuberculosis antigens detected. Infection with M tuberculosis is unlikely, but high risk individuals should be considered for additional testing (ATS/IDSA/CDC Clinical Practice Guidelines, 2017). The reference range is an Antigen minus Nil result of <0.35 IU/mL. Chemiluminescence immunoassay methodology Performed By: #### Q NTTB #### [facility] [address] [place] [address] Dr. Jazmyn Saavedra HEP B COREon 02-06-2023 Hep B Core Ab, Tot Negative Normal Negative [facility] Comment on above: Performed By: #### S EDR #### [facility] Laboratory [address] [place] [address] Dr. Jazmyn Saavedra HEP B SURFACE ANTIGEN SCREEN on 02-06-2023 HBsAg Screen Negative Normal Negative [facility] Comment on above: Performed By: #### H BSANS #### [facility] Laboratory [address] [place] [address] Dr. Jazmyn Saavedra CBC AUTO DIFFon 02-05-2023 BASO # 0.0 103/ul Normal 0.0-0.1 [facility] Comment on above: Performed By: #### C BC #### [facility] [address] [place] [address] Dr. Jazmyn Saavedra Basophils/100 WBC (Bld) 0.5 % Normal 0.2-2.0 [facility] Comment on above: Performed By: #### C BC #### [facility] Laboratory [address] [place] [address] Dr. Jazmyn Saavedra EO # 0.0 103/ul Normal 0.0-0.7 [facility] Comment on above: Performed By: #### C BC #### [facility] [address] [place] [address] Dr. Jazmyn Saavedra Eosinophils/100 WBC (Bld) 0.8 % Critically low 0.9-7.0 [facility] Comment on above: Performed By: #### C BC #### [facility] [address] [place] [address] Dr. Jazmyn Saavedra Erythrocyte distribution width (RBC) [Ratio] 13.2 % Normal 11.0-15.0 [facility] Comment on above: Performed By: #### C BC #### [facility] [address] [place] [address] Dr. Jazmyn Saavedra Hematocrit (Bld) [Volume fraction] 41.1 % Normal 36.0-48.0 [facility] Comment on above: Performed By: #### C BC #### [facility] [address] [place] [address] Dr. Jazmyn Saavedra Hemoglobin (Bld) [Mass/Vol] 13.4 g/dL Normal 12.0-16.0 [facility] Comment on above: Performed By: #### C BC #### [facility] [address] [place] [address] Dr. Jazmyn Saavedra IG # 0.01 10e3/ul Normal 0.00-0.03 [facility] Comment on above: Performed By: #### C BC #### [facility] [address] [place] [address] Dr. Jazmyn Saavedra IG % 0.3 % Normal 0.0-0.5 [facility] Comment on above: Performed By: #### C BC #### [facility] [address] [place] [address] Dr. Jazmyn Saavedra LYMPH # 1.2 103/ul Normal 1.2-3.8 [facility] Comment on above: Performed By: #### C BC #### [facility] [address] [place] [address] Dr. Jazmyn Saavedra Lymphocytes/100 WBC (Bld) 31.9 % Normal 20.5-60.0 [facility] Comment on above: Performed By: #### C BC #### [facility] [address] [place] [address] Dr. Jazmyn Saavedra MANUAL DIFF REQ NO Normal [facility] Comment on above: Performed By: #### C BC #### [facility] [address] [place] [address] Dr. Jazmyn Saavedra MCH (RBC) [Entitic mass] 30.6 pg Normal 26.7-34.0 [facility] Comment on above: Performed By: #### C BC #### [facility] [address] [place] [address] Dr. Jazmyn Saavedra MCHC (RBC) [Mass/Vol] 32.6 g/dL Normal 29.9-35.2 [facility] Comment on above: Performed By: #### C BC #### [facility] [address] [place] [address] Dr. Jazmyn Saavedra MCV (RBC) [Entitic vol] 93.8 fL Normal 81.0-99.0 [facility] Comment on above: Performed By: #### C BC #### [facility] [address] [place] [address] Dr. Jazmyn Saavedra MONO # 0.5 103/ul Normal 0.3-0.8 [facility] Comment on above: Performed By: #### C BC #### [facility] [address] [place] [address] Dr. Jazmyn Saavedra Monocytes/100 WBC (Bld) 14.1 % Critically high 1.7-12.0 [facility] Comment on above: Performed By: #### C BC #### [facility] [address] [place] [address] Dr. Jazmyn Saavedra NEUT # 1.9 103/ul Normal 1.4-6.5 [facility] Comment on above: Performed By: #### C BC #### [facility] [address] [place] [address] Dr. Jazmyn Saavedra Neutrophils/100 WBC (Bld) 52.4 % Normal 43.0-75.0 [facility] Comment on above: Performed By: #### C BC #### [facility] [address] [place] [address] Dr. Jazmyn Saavedra Platelet mean volume (Bld) [Entitic vol] 9.4 fL Critically low 9.5-13.5 [facility] Comment on above: Performed By: #### C BC #### [facility] [address] [place] [address] Dr. Jazmyn Saavedra PLT 342 103/ul Normal 150-450 [facility] Comment on above: Performed By: #### C BC #### [facility] [address] [place] [address] Dr. Jazmyn Saavedra RBC 4.38 106/ul Normal 4.20-5.40 [facility] Comment on above: Performed By: #### C BC #### [facility] [address] [place] [address] Dr. Jazmyn Saavedra WBC 3.7 103/ul Critically low 4.0-11.0 [facility] Comment on above: Performed By: #### C BC #### [facility] [address] [place] [address] Dr. Jazmyn Saavedra FREE THYROXINE INDEX T7on FTI 3.20 Normal 1.30-4.50 [facility] Comment on above: Performed By: #### S EDR #### [facility] [address] [address] [address] Jazmyn Saavedra T3U 36.0 % Normal 30.0-39.0 [facility] Comment on above: Performed By: #### S EDR #### [facility] [address] [address] [address] Jazmyn Saavedra T4 [Mass/Vol] 8.90 ug/dL Normal 4.80-13.90 [facility] Comment on above: Performed By: #### S EDR #### [facility] [address] [place] [address] Dr. Jazmyn Saavedra GLYCOHEMOGLOBIN A1Con 2022 ADA RECOMMENDATION SEE BELOW Normal [facility] Comment on above: Result Comment: ADA RECOMMENDED LIMIT 4.0 - 6.0 ADA THERAPEUTIC TARGET < 7.0 ACTION SUGGESTED > 7.0 Performed By: #### S EDR #### [facility] [address] [place] [address] Dr. Jazmyn Saavedra Glucose [Mass/Vol] 123 mg/dL Normal [facility] Comment on above: Performed By: #### S EDR #### [facility] [address] [place] [address] Dr. Jazmyn Saavedra HbA1c (Bld) [Mass fraction] 5.9 % Normal 4.5-6.2 [facility] Comment on above: Performed By: #### S EDR #### [facility] [address] [place] [address] Dr. Jazmyn Saavedra LIPID PROFILEon 02-05-2023 CHOL-HDL RATIO NORM SEE BELOW Normal [facility] Comment on above: Result Comment: 3.3 - 4.4 LOW RISK 4.4 - 7.1 AVERAGE RISK 7.1 - 11.0 MODERATE RISK >11.0 HIGH RISK Performed By: #### S EDR #### [facility] [address] [place] [address] Dr. Jazmyn Saavedra Cholesterol [Mass/Vol] 256 mg/dL Critically high <=200 [facility] Comment on above: Performed By: #### S EDR #### [facility] [address] [address] [address] Jazmyn Saavedra Cholesterol in HDL [Mass/Vol] 108 mg/dL Critically high 40-60 [facility] Comment on above: Performed By: #### S EDR #### [facility] [address] [address] [address] Jazmyn Saavedra Cholesterol in LDL [Mass/Vol] 139.4 mg/dL Normal [facility] Comment on above: Performed By: #### S EDR #### [facility] [address] [address] [address] Jazmyn Saavedra Cholesterol.total/ Cholesterol in HDL [Mass ratio] 2.4 {ratio} Normal [facility] Comment on above: Performed By: #### S EDR #### [facility] [address] [address] [address] Jazmyn Saavedra HDL NORMAL > or = 60 mg/dl - LO W CARDIOVASCULAR RISK <40 mg/dl - HIGH CARDIOVASCULAR RISK Normal [facility] Comment on above: Performed By: #### S EDR #### [facility] [address] [address] [address] Jazmyn Saavedra LDL CALC NORMAL SEE BELOW Normal [facility] Comment on above: Result Comment: <100 mg/dl OPTIMAL 100 - 129 mg/dl NEAR OR ABOVE OPTIMAL 130 - 159 mg/dl BORDERLINE HIGH 160 - 189 mg/dl HIGH >190 mg/dl VERY HIGH Performed By: #### S EDR #### [facility] [address] [address] [address] Jazmyn Saavedra Triglyceride [Mass/Vol] 43 mg/dL Normal <=150 [facility] Comment on above: Performed By: #### S EDR #### [facility] [address] [place] [address] Dr. Jazmyn Saavedra VLDL CALC 8.6 mg/dL Normal [facility] Comment on above: Performed By: #### S EDR #### [facility] [address] [address] [address] Jazmyn Saavedra Orders Onlyon 02-05-2023 Orders Only [id number] Yamileth Small 1970 F Date Provider Department Center 02/05/2023 [id number], HISTORICAL [facility] PHYS MED [facility] No family history on file Normal [facility] PROF 14(COMP METB)on 023 Albumin [Mass/Vol] 4.0 g/dL Normal 3.4-5.0 [facility] Comment on above: Performed By: #### T 7, CMP, LIPID, TSH #### [facility] [address] [address] [address] Jazmyn Saavedra Albumin/Globulin [Mass ratio] 0.9 {ratio} Normal [facility] Comment on above: Performed By: #### T 7, CMP, LIPID, TSH #### [facility] [address] [address] [address] Jazmyn Saavedra ALP [Catalytic activity/Vol] 57 U/L Normal 46-116 [facility] Comment on above: Performed By: #### T 7, CMP, LIPID, TSH #### [facility] [address] [address] [address] Jazmyn Saavedra ALT [Catalytic activity/Vol] 23 U/L Normal 14-59 [facility] Comment on above: Performed By: #### T 7, CMP, LIPID, TSH #### [facility] [address] [address] [address] Jazmyn Saavedra Anion gap [Moles/Vol] 13.8 mmol/L Normal [facility] Comment on above: Performed By: #### T 7, CMP, LIPID, TSH #### [facility] [address] [address] [address] Jazmyn Saavedra AST [Catalytic activity/Vol] 23 U/L Normal 15-37 [facility] Comment on above: Performed By: #### T 7, CMP, LIPID, TSH #### [facility] [address] [address] [address] Jazmyn Saavedra Bilirubin [Mass/Vol] 0.6 mg/dL Normal 0.2-1.0 [facility] Comment on above: Performed By: #### T 7, CMP, LIPID, TSH #### [facility] [address] [address] [address] Jazmyn Saavedra Calcium [Mass/Vol] 9.6 mg/dL Normal 8.5-10.1 [facility] Comment on above: Performed By: #### T 7, CMP, LIPID, TSH #### [facility] [address] [place] [address] Dr. Jazmyn Saavedra Chloride [Moles/Vol] 100 mmol/L Normal 98-107 [facility] Comment on above: Performed By: #### T 7, CMP, LIPID, TSH #### [facility] [address] [place] [address] Dr. Jazmyn Saavedra CO2 [Moles/Vol] 29.9 mmol/L Normal 21.0-32.0 [facility] Comment on above: Performed By: #### T 7, CMP, LIPID, TSH #### [facility] [address] [place] [address] Dr. Jazmyn Saavedra Creatinine [Mass/Vol] 0.89 mg/dL Normal 0.55-1.02 [facility] Comment on above: Performed By: #### T 7, CMP, LIPID, TSH #### [facility] [address] [place] [address] Dr. Jazmyn Saavedra EGFR-AF INDONESIAN >60 Normal >=60 [facility] Comment on above: Performed By: #### T 7, CMP, LIPID, TSH #### [facility] [address] [place] [address] Dr. Jazmyn Saavedra EGFR-NON AF INDONESIAN >60 Normal >=60 [facility] Comment on above: Performed By: #### T 7, CMP, LIPID, TSH #### [facility] [address] [place] [address] Dr. Jazmyn Saavedra Globulin (S) [Mass/Vol] 4.4 g/dL Normal [facility] Comment on above: Performed By: #### T 7, CMP, LIPID, TSH #### [facility] [address] [place] [address] Dr. Jazmyn Saavedra Glucose [Mass/Vol] 89 mg/dL Normal 74-106 [facility] Comment on above: Performed By: #### T 7, CMP, LIPID, TSH #### [facility] [address] [place] [address] Dr. Jazmyn Saavedra Potassium [Moles/Vol] 3.7 mmol/L Normal 3.5-5.1 [facility] Comment on above: Performed By: #### T 7, CMP, LIPID, TSH #### [facility] [address] [place] [address] Dr. Jazmyn Saavedra Protein [Mass/Vol] 8.4 g/dL Critically high 6.4-8.2 [facility] Comment on above: Performed By: #### T 7, CMP, LIPID, TSH #### [facility] [address] [place] [address] Dr. Jazmyn Saavedra Sodium [Moles/Vol] 140 mmol/L Normal 136-145 [facility] Comment on above: Performed By: #### T 7, CMP, LIPID, TSH #### [facility] [address] [place] [address] Dr. Jazmyn Saavedra Urea nitrogen [Mass/Vol] 17.0 mg/dL Normal 7.0-18.0 [facility] Comment on above: Performed By: #### T 7, CMP, LIPID, TSH #### [facility] [address] [place] [address] Dr. Jazmyn Saavedra Urea nitrogen/Creatinin e [Mass ratio] 19.1 mg/mg Normal [facility] Comment on above: Performed By: #### T 7, CMP, LIPID, TSH #### [facility] [address] [place] [address] Dr. Jazmyn Saavedra TSHon 02-05-2023 TSH 0.984 uIU/mL Normal 0.358-3.740 [facility] Comment on above: Performed By: #### S EDR #### [facility] [address] [place] [address] Dr. Jazmyn Saavedra Documentationon 01-29-2023 Documentation [id number] Yamileth Small 1970 F Date Provider Department Center 01/29/2023 EDUARD ALEXANDRE [facility] RHEUM Yamil Heal No family history on file Reason for Visit and Comments: Specialty Pharmacy Note: [facility] Prescription [Other] [facility] [place] Follow-Upon 01-28-2023 Follow-Up [id number] Yamileth Small 1970 F Date Provider Department Center 01/28/2023 Mary Alice-EYAL ALEGRIA [facility] No family history on file Level of Service:77906 [place] OFFICE/OUTPATIENT ESTABLISHED MOD MDM 30-39 MIN (GC) [facility] [place] PAP ACOG PANEL 2: 30 to 65on 10-07-2022 . . Normal [facility] Comment on above: Result Comment: Perf ormed at: [facility] Performed By: #### S EDR #### [facility] [address] [address] [address] Jazmyn Saavedra Age Gdln ACOG Testing 30-65 Normal [facility] Comment on above: Performed By: #### S EDR #### [facility] [address] [address] [address] Jazmyn Saavedra DIAGNOSIS: Comment Normal [facility] Comment on above: Result Comment: NEGA TIVE FOR INTRAEPITHELIAL LESION OR MALIGNANCY. Performed at: [facility] Performed By: #### S EDR #### [facility] [address] [address] [address] Jazmyn Saavedra HPV Aptima Negative Normal Negative [facility] Comment on above: Result Comment: This nucleic acid amplification test detects fourteen high-risk HPV types (16,18,31,33,35,39,45,51,52,56,58,59,66,68) without differentiation. Performed at: =G Performed By: #### S EDR #### [facility] [address] [address] [address] Jazmyn Saavedra HPV Genotype Reflex Comment Normal [facility] Comment on above: Result Comment: Crit eria not met, HPV Genotype not performed. Performed at: [facility] Performed By: #### S EDR #### [facility] [address] [place] [address] Dr. Jazmyn Saavedra Methodology: Comment Normal [facility] Comment on above: Result Comment: This liquid based ThinPrep(R) pap test was screened with the use of an image guided system. Performed at: [facility] Performed By: #### S EDR #### [facility] [address] [place] [address] Dr. Jazmyn Saavedra Note: Comment Normal [facility] Comment on above: Result Comment: The Pap [...] By: #### S EDR #### [facility] [address] [place] [address] Dr. Jazmyn Saavedra Performed by: Comment Normal [facility] Comment on above: Result Comment: Daryl Calhoun, Bridge Worker Apprentice (ASCP) Performed at: [facility] Performed By: #### S EDR #### [facility] [address] [place] [address] Dr. Jazmyn Saavedra Specimen adequacy: Comment Normal [facility] Comment on above: Result Comment: Sati sfactory for evaluation. Endocervical component may not be distinguished in cases of atrophy. Performed at: [facility] Performed By: #### S EDR #### [facility] [address] [place] [address] Dr. Jazmyn Saavedra Orders Onlyon 08-31-2022 Orders Only [id number] Yamileth Small 1970 F Date Provider Department Center 08/31/2022 [id number], HISTORICAL [facility] PHYS MED [facility] No family history on file Normal [facility] XR DEXA BONE DENSITYon 08-28 XR [...] GILBERT GEORGE Date: 2022-08-28 08:47 Normal [facility] CBC AUTO DIFFon 08-25-2022 BASO # 0.0 103/ul Normal 0.0-0.1 [facility] Comment on above: Performed By: #### S EDR #### [facility] [address] [address] [address] Jazmyn Saavedar Basophils/100 WBC (Bld) 0.5 % Normal 0.2-2.0 [facility] Comment on above: Performed By: #### S EDR #### [facility] [address] [address] [address] Jazmyn Saavedra EO # 0.1 103/ul Normal 0.0-0.7 [facility] Comment on above: Performed By: #### S EDR #### [facility] [address] [address] [address] Jazmyn Saavedra Eosinophils/100 WBC (Bld) 1.2 % Normal 0.9-7.0 [facility] Comment on above: Performed By: #### S EDR #### [facility] [address] [address] [address] Jazmyn Saavedra Erythrocyte distribution width (RBC) [Ratio] 13.2 % Normal 11.0-15.0 [facility] Comment on above: Performed By: #### S EDR #### [facility] [address] [address] [address] Jazmyn Saavedra Hematocrit (Bld) [Volume fraction] 38.4 % Normal 36.0-48.0 [facility] Comment on above: Performed By: #### S EDR #### [facility] [address] [address] [address] Jazmyn Saavedra Hemoglobin (Bld) [Mass/Vol] 12.6 g/dL Normal 12.0-16.0 [facility] Comment on above: Performed By: #### S EDR #### [facility] [address] [address] [address] Jazmyn Saaverda IG # 0.01 10e3/ul Normal 0.00-0.03 [facility] Comment on above: Performed By: #### S EDR #### [facility] [address] [address] [address] Jazmyn Saavedra IG % 0.2 % Normal 0.0-0.5 [facility] Comment on above: Performed By: #### S EDR #### [facility] [address] [place] [address] Dr. Jazmyn Saavedra LYMPH # 1.7 103/ul Normal 1.2-3.8 [facility] Comment on above: Performed By: #### S EDR #### [facility] [address] [place] [address] Dr. Jazmyn Saavedra Lymphocytes/100 WBC (Bld) 40.8 % Normal 20.5-60.0 [facility] Comment on above: Performed By: #### S EDR #### [facility] [address] [place] [address] Dr. Jazmyn Saavedra MANUAL DIFF REQ NO Normal [facility] Comment on above: Performed By: #### S EDR #### [facility] [address] [address] [address] Jazmyn Saavedra MCH (RBC) [Entitic mass] 31.0 pg Normal 26.7-34.0 [facility] Comment on above: Performed By: #### S EDR #### [facility] [address] [address] [address] Jazmyn Saavedra MCHC (RBC) [Mass/Vol] 32.8 g/dL Normal 29.9-35.2 [facility] Comment on above: Performed By: #### S EDR #### [facility] [address] [address] [address] Jazmyn Saavedra MCV (RBC) [Entitic vol] 94.3 fL Normal 81.0-99.0 [facility] Comment on above: Performed By: #### S EDR #### [facility] [address] [address] [address] Jazmyn Saavedra MONO # 0.5 103/ul Normal 0.3-0.8 [facility] Comment on above: Performed By: #### S EDR #### [facility] [address] [address] [address] Jazmyn Saavedra Monocytes/100 WBC (Bld) 11.9 % Normal 1.7-12.0 [facility] Comment on above: Performed By: #### S EDR #### [facility] [address] [place] [address] Dr. Jazmyn Saavedra NEUT # 1.9 103/ul Normal 1.4-6.5 [facility] Comment on above: Performed By: #### S EDR #### [facility] [address] [place] [address] Dr. Jazmyn Saavedra Neutrophils/100 WBC (Bld) 45.4 % Normal 43.0-75.0 [facility] Comment on above: Performed By: #### S EDR #### [facility] [address] [place] [address] Dr. Jazmyn Saavedra Platelet mean volume (Bld) [Entitic vol] 9.3 fL Critically low 9.5-13.5 [facility] Comment on above: Performed By: #### S EDR #### [facility] [address] [address] [address] Jazmyn Saavedra PLT 309 103/ul Normal 150-450 [facility] Comment on above: Performed By: #### S EDR #### [facility] [address] [place] [address] Dr. Jazmyn Saavedra RBC 4.07 106/ul Critically low 4.20-5.40 [facility] Comment on above: Performed By: #### S EDR #### [facility] [address] [address] [address] Jazmyn Saavedra WBC 4.2 103/ul Normal 4.0-11.0 [facility] Comment on above: Performed By: #### S EDR #### [facility] [address] [place] [address] Dr. Jazmyn Saavedra CRPon 08-25-2022 CRP [Mass/Vol] mg/L Normal <=1.0 [facility] Comment on above: Performed By: #### C RP, CMP, LIPID #### [facility] [address] [place] [address] Dr. Jazmyn Saavedra LIPID PROFILEon 08-25-2022 CHOL-HDL RATIO NORM SEE BELOW Normal [facility] Comment on above: Result Comment: 3.3 - 4.4 LOW RISK 4.4 - 7.1 AVERAGE RISK 7.1 - 11.0 MODERATE RISK >11.0 HIGH RISK Performed By: #### C RP, CMP, LIPID #### [facility] [address] [place] [address] Dr. Jazmyn Saavedra Cholesterol [Mass/Vol] 251 mg/dL Critically high <=200 [facility] Comment on above: Performed By: #### C RP, CMP, LIPID #### [facility] [address] [place] [address] Dr. Jazmyn Saavedra Cholesterol in HDL [Mass/Vol] 102 mg/dL Critically high 40-60 [facility] Comment on above: Performed By: #### C RP, CMP, LIPID #### [facility] [address] [place] [address] Dr. Jazmyn Saavedra Cholesterol in LDL [Mass/Vol] 135.0 mg/dL Normal [facility] Comment on above: Performed By: #### C RP, CMP, LIPID #### [facility] [address] [place] [address] Dr. Jazmyn Saavedra Cholesterol.total/ Cholesterol in HDL [Mass ratio] 2.5 {ratio} Normal [facility] Comment on above: Performed By: #### C RP, CMP, LIPID #### [facility] [address] [place] [address] Dr. Jazmyn Saavedra HDL NORMAL > or = 60 mg/dl - LO W CARDIOVASCULAR RISK <40 mg/dl - HIGH CARDIOVASCULAR RISK Normal [facility] Comment on above: Performed By: #### C RP, CMP, LIPID #### [facility] [address], [place] [address] Dr. Jazmyn Saavedra LDL CALC NORMAL SEE BELOW Normal [facility] Comment on above: Result Comment: <100 mg/dl OPTIMAL 100 - 129 mg/dl NEAR OR ABOVE OPTIMAL 130 - 159 mg/dl BORDERLINE HIGH 160 - 189 mg/dl HIGH >190 mg/dl VERY HIGH Performed By: #### C RP, CMP, LIPID #### [facility] [address], [place] [address] Dr. Jazmyn Saavedra Triglyceride [Mass/Vol] 70 mg/dL Normal <=150 [facility] Comment on above: Performed By: #### C RP, CMP, LIPID #### [facility] [address], [place] [address] Dr. Jazmyn Saavedra VLDL CALC 14.0 mg/dL Normal [facility] Comment on above: Performed By: #### C RP, CMP, LIPID #### [facility] [address], [place] [address] Dr. Jazmyn Saavedra Orders Onlyon 08-25-2022 Orders Only [id number] Yamileth Small 1970 F Date Provider Department Center 08/25/2022 [id number], HISTORICAL [facility] No family history on file Normal [facility] PROF 14(COMP METB)on 022 Albumin [Mass/Vol] 3.9 g/dL Normal 3.4-5.0 [facility] Comment on above: Performed By: #### C RP, CMP, LIPID #### [facility] [address], [place] [address] Dr. Jazmyn Saavedra Albumin/Globulin [Mass ratio] 1.0 {ratio} Normal [facility] Comment on above: Performed By: #### C RP, CMP, LIPID #### [facility] [address], [place] [address] Dr. Jazmyn Saavedra ALP [Catalytic activity/Vol] 49 U/L Normal 46-116 [facility] Comment on above: Performed By: #### C RP, CMP, LIPID #### [facility] [address] [address] [address] Jazmyn Saavedra ALT [Catalytic activity/Vol] 17 U/L Normal 14-59 [facility] Comment on above: Performed By: #### C RP, CMP, LIPID #### [facility] [address] [address] [address] Jazmyn Saavedra Anion gap [Moles/Vol] 10.1 mmol/L Normal [facility] Comment on above: Performed By: #### C RP, CMP, LIPID #### [facility] [address] [place] [address] Dr. Jazmyn Saavedra AST [Catalytic activity/Vol] 19 U/L Normal 15-37 [facility] Comment on above: Performed By: #### C RP, CMP, LIPID #### [facility] [address] [place] [address] Dr. Jazmyn Saavedra Bilirubin [Mass/Vol] 0.5 mg/dL Normal 0.2-1.0 [facility] Comment on above: Performed By: #### C RP, CMP, LIPID #### [facility] [address] [place] [address] Dr. Jazmyn Saavedra Calcium [Mass/Vol] 9.3 mg/dL Normal 8.5-10.1 [facility] Comment on above: Performed By: #### C RP, CMP, LIPID #### [facility] [address] [place] [address] Dr. Jazmyn Saavedra Chloride [Moles/Vol] 103 mmol/L Normal 98-107 [facility] Comment on above: Performed By: #### C RP, CMP, LIPID #### [facility] [address] [place] [address] Dr. Jazmyn Saavedra CO2 [Moles/Vol] 30.1 mmol/L Normal 21.0-32.0 [facility] Comment on above: Performed By: #### C RP, CMP, LIPID #### [facility] [address] [place] [address] Dr. Jazmyn Saavedra Creatinine [Mass/Vol] 0.80 mg/dL Normal 0.55-1.02 [facility] Comment on above: Performed By: #### C RP, CMP, LIPID #### [facility] [address] [address] [address] Jazmyn Saavedra EGFR-AF INDONESIAN >60 Normal >=60 [facility] Comment on above: Performed By: #### C RP, CMP, LIPID #### [facility] [address] [address] [address] Jazmyn Saavedra EGFR-NON AF INDONESIAN >60 Normal >=60 [facility] Comment on above: Performed By: #### C RP, CMP, LIPID #### [facility] [address] [place] [address] Dr. Jazmyn Saavedra Globulin (S) [Mass/Vol] 4.1 g/dL Normal [facility] Comment on above: Performed By: #### C RP, CMP, LIPID #### [facility] [address] [place] [address] Dr. Jazmyn Saavedra Glucose [Mass/Vol] 92 mg/dL Normal 74-106 [facility] Comment on above: Performed By: #### C RP, CMP, LIPID #### [facility] [address] [place] [address] Dr. Jazmyn Saavedra Potassium [Moles/Vol] 4.2 mmol/L Normal 3.5-5.1 [facility] Comment on above: Performed By: #### C RP, CMP, LIPID #### [facility] [address] [place] [address] Dr. Jazmyn Saavedra Protein [Mass/Vol] 8.0 g/dL Normal 6.4-8.2 [facility] Comment on above: Performed By: #### C RP, CMP, LIPID #### [facility] [address] [place] [address] Dr. Jazmyn Saavedra Sodium [Moles/Vol] 139 mmol/L Normal 136-145 [facility] Comment on above: Performed By: #### C RP, CMP, LIPID #### [facility] [address] [place] [address] Dr. Jazmyn Saavedra Urea nitrogen [Mass/Vol] 20.0 mg/dL Critically high 7.0-18.0 [facility] Comment on above: Performed By: #### C RP, CMP, LIPID #### [facility] [address] [place] [address] Dr. Jazmyn Saavedra Urea nitrogen/Creatinin e [Mass ratio] 25.0 mg/mg Normal [facility] Comment on above: Performed By: #### C RP, CMP, LIPID #### [facility] [address] [address] [address] Jazmyn Saavedra SED RATE [facility] 2021 SED RATE 47 mm/hr Critically high <=30 [facility] Comment on above: Performed By: #### S EDR #### [facility] [address] [place] [address] Dr. Jazmyn Saavedra ASYMPTOMATIC COVID-19 ANTIGE Non 05-18-2022 EUA Statement SEE BELOW Normal [facility] Comment on above: Result Comment: This test [...] By: #### S EDR #### [facility] [address] [place] [address] Dr. Jazmyn Saavedra SARS-CoV-2 (COVID-19) RNA NILES+probe Ql (Unsp spec) Positive Critically abnormal NEGATIVE [facility] Comment on above: Result Comment: SARS -CoV-2 antigen present; does not rule out coinfection with other pathogens. Performed By: #### S EDR #### [facility] [address] [address] [address] Jazmyn Saavedra Covid-19 PCR (CVDTB)on SARS-CoV-2 (COVID-19) RNA NILES+probe Ql (Unsp spec) Detected Critically abnormal NOT DETECTED [facility] Comment on above: Result Comment: This test is not yet approved or cleared by the [place] FDA. When there are no FDA-approved or cleared tests available, and other criteria are met, FDA can make tests available under an emergency access mechanism called an Emergency Use Authorization (EUA). The EUA for this test is supported by the Parent Partner of Health and Human Service's declaration that [...] By: #### C VDTB #### [facility] [address] [address] [address] Jazmyn BARLOW MULTI-CANCER PANELon 02-12-2021 RESULT Results to be mailed directly to physician's office by reference lab. Normal [facility] Comment on above: Result Comment: Test performed by [facility] [address] [place] [address] [phone] No result expected. For billing and tracking purposes only. Performed By: #### 3 1846 #### [address] Vital Signs Date Time Vital Sign Value Performing Clinician Facility 11-16-2023 11:39-0500 Body mass index (BMI) [Ratio] 24.96 kg/m2 Step-In DO Work Phone: [facility] 11-16-2023 11:39-0500 Body weight 68.04 kg Step-In DO Work Phone: [facility] 11-16-2023 11:39-0500 Diastolic blood pressure 72 mm[Hg] Easton Jassi DO Work Phone: [facility] 11-16-2023 11:39-0500 Systolic blood pressure 118 mm[Hg] Easton Jassi DO Work Phone: [facility] 03-03-2023 14:35-0400 Blood Pressure Location [facility] 03-03-2023 14:35-0400 Diastolic blood pressure 68 mm[Hg] [facility] 03-03-2023 14:35-0400 Heart rate 68 /min [facility] 03-03-2023 14:35-0400 Respiratory rate 16 /min [facility] [facility] 03-03-2023 14:35-0400 Systolic blood pressure 114 mm[Hg] Joselo NILL [facility] Encounters Encounter Date Encounter Type Care Provider Facility Start: 11-16-2023 End: 11-16-2023 ambulatory EASTON KEENE Not Available Start: 11-16-2023 End: 11-16-2023 Postop follow up visit related to original px Easton Jassi DO Work Phone: [facility] Comment on above: Encounter for repeat Pap smear due to previous insuff cervical cells Start: 10-28-2023 End: 10-28-2023 ambulatory FELIX WHITNEY Not Available Start: 09-29-2023 End: 09-29-2023 ambulatory FELIX WHITNEY Not Available Start: 08-19-2023 End: 08-19-2023 ambulatory TOMAS I [facility] Start: 06-03-2023 End: 06-03-2023 ambulatory CHRISTIANM I [facility] Start: 04-07-2023 End: 04-08-2023 ambulatory Joselo STARKS Facility:[facility] Start: 04-07-2023 End: 04-07-2023 Patient encounter procedure Joselo STARKS General Surgery Nill[facility] Start: 03-24-2023 End: 03-25-2023 ambulatory Joselo Llanes RAUDEL Facility:CD:[id number] Start: 03-03-2023 End: 03-04-2023 ambulatory Mariza Hoy Facility:[facility] Start: 03-03-2023 End: 03-03-2023 Patient encounter procedure Joselo Llanes RAUDEL General Surgery Nill/Said Arvind Start: 02-18-2023 ambulatory [facility]SHLE[facility] Start: 02-18-2023 ambulatory Mariza Hoy Facility:[facility] Start: 02-12-2023 Encounter for genera l adult medical examination without abnormal findings MARIZA HOY [facility] Start: 02-12-2023 End: 02-13-2023 ambulatory MARIZA WRIGHT Facility:[facility] Start: 02-05-2023 End: 02-06-[address] DOCTOR KELLOGG Facility:[facility] Start: 02-05-2023 End: 02-06-2023 Encounter for general adult medical examination without abnormal findings MARIZA HOY Facility:[facility] Start: 02-04-2023 End: 02-05-[address] IDA SOTO Facility:[facility] Start: 01-28-2023 End: 01-28-20[facility] Start: 09-23-2022 End: 09-23-[address] [...] TOMAS CLINTON Start: 03-24-2023 Colonoscopy Easton Keene [employer] Phone: Start: 03-24-2023 Colonoscopy Joselo STARKS [employer] Start: 03-24-2023 Esophagogastroduodenoscopy [facility] Start: 09-23-2022 Microscopic observation [Identifier] in Cervix by Cyto stain Easton Keene [employer] Phone: Start: 07-24-2015 Colonoscopy Joselo STARKS [employer] Start: 02-01-2007 Colonoscopy [facility] Bilateral mastectomy [facility]elo [facility] Biopsy of breast Joselo SCANLON [employer] Joselo SCANLON [facility] Excision of cervical intervertebral disc Joselo [facility] Excision of lymph node Tony flori [employer] [facility] Comment on above: left inguinal Excision of salivary gland M marco [employer] [facility] Comment on above: x2 Granuloma (morpholog ic abnormality) Joselo [facility] Comment on above: x 2 History of radiofreq uency ablation operation for arrhythmia Joselo [facility] Total abdominal hyst erectomy with bilateral salpingo-oophorectomy [facility] Plan of Treatment Date Care Activity Detail Author Start: 03-24-2033 Screening for malign ant neoplasm of colon [facility] Start: 09-23-2027 Screening for malign ant neoplasm of cervix [facility] Start: 01-27-2025 Screening for malign ant neoplasm of colon FIT-DNA [facility] Start: 11-20-2024 End: 11-20-2024 Patient encounter procedure 11/20/2024 4:00 PM EST Office Visit [facility] [address] [place] [address] [place] [address] Easton Keene, DO [address] [place] [address] [place] [address] [facility] Start: 06-04-2023 Influenza vaccination Influenza Vacc ine (#1) [facility] Start: 2008 Screening for malign ant neoplasm of breast Mammogram [facility] Start: 1968 Screening for malign ant neoplasm of colon [facility] Immunizations Immunization Date Immunization Notes Care Provider Fa cility 08-07-2022 SARS-CoV-2 (COVID-19 ) mRNA-1273 vaccine Joselo NILL [facility] 01-01-2022 SARS-CoV-2 mRNA (piggrmzhpvy-fzva-ijmtz se) vaccine Joselo NILL [facility] 06-18-2021 SARS-CoV-2 (COVID-19 ) mRNA-1273 vaccine Joselo NILL [facility] Comment on above: Result Comment: 2022: [id number] 10-30-2020 SARS-CoV-2 (COVID-19 ) mRNA-1273 vaccine Joselo SCANLONL [facility] 10-02-2020 SARS-CoV-2 (COVID-19 ) mRNA-1273 vaccine Joselo NILL [facility] Payers Date Payer Category Payer Unknown [id number] 2022 Unknown BCBS BCBS xxxxxx [id number] 2022-Present [phone] [address] [place] [address] [id number] 2019 Unknown [id number] 1968 Unknown [id number] [id number] 1968 Unknown [id number] 2.16.840.1.894510.3.579.2.593 1968 Unknown [id number] 2.16.840.1.239475.3.579.2.593 1968 Unknown [id number] 2.16.840.1.607835.3.579.2.593 1968 Unknown [id number] 2.16.840.1.447392.3.579.2.593 1968 Unknown [id number] 2.16.840.1.442278.3.579.2.593 1968 Unknown [id number] 2.16.840.1.168112.3.579.2.593 1968 Unknown [id number] 2.16.840.1.570327.3.579.2.593 1968 Unknown [id number] 2.16.840.1.625550.3.579.2.593 1968 Unknown [id number] 2.16.840.1.396908.3.579.2.727 1968 Unknown [id number] 2.16.840.1.159074.3.579.2.727 1968 Unknown [id number] 2.16.840.1.260928.3.579.2.727 1968 Unknown [id number] 2.16.840.1.775538.3.579.2.1259 1968 Unknown [id number] 2.16.840.1.424247.3.579.2.1259 1968 Unknown [id number] 2.16.840.1.913167.3.579.2.1259 1959 Self-pay [id number] Unknown [id number] 2.16.840.1.615988.3.579.2.593 Social History Date Type Detail Facility Start: 03-03-2023 End: 09-24-2023 Tobacco smoking status Never smoked tobacco (finding) [facility] Tobacco smoking status Never Gener al [facility] Start: 09-24-2023 Sex Assigned At Female [facility] Start: 10-28-2023 Alcohol intake Current drinke [...] 03-03-2023 Functional Status N/A General [facility] Clinical Notes 01-28-2023 to 11-16-2023 Easton Keene, - 11/16/2023 11:20 AM EST Note Date [...] Easton Keene DO documented in this encounter [facility] 08-19-2023 Note Attestation signed by Tomas Clinton [...] seen with attending physician, Dr. Sun Josue [facility] Medical Student , MS3 There are no diagnoses linked to this encounter. No diagnosis found. No orders of the defined types were placed in this encounter. No results found for this or any previous visit (from the past 36 hour(s)). No follow-ups on file. [facility] 06-03-2023 Note Attestation signed by Tomas [...] past 36 hour(s)). No follow-ups on file. [facility] 03-03-2023 Note Chief Complaint consultation for [...] History of pericar (more content not included)... [facility] Comment on above: Result Comment: Elec tronically Signed By: RAUDEL PUENTES, Joselo Barrera\Date and Time Signed: 03/03/23 16:35 EDT 02-18-2023 Note Patient ID: Teetee Small is a 53 y.o. female. Primary oncologist: Dr Kat Hernandez Primary Care Provider: Mariza Wright MD Subjective Pt presents alone for annual follow up. 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 Comments: Home Demonstrator offered, declined No signs chest wall recurrence. [...] present. Mental Statu (more content not included)... [facility] 02-04-2023 Note PROCEDURE: XR SACROI LIAC JOINT 3 VIEWS COMPARISON: None. HISTORY: Rheumatoid factor positive rheumatoid arthritis FINDINGS: SACRUM: No fracture, disruption of the sacral ala line, or cortical irregularity. COCCYX: No fracture or suspicious alignment. SOFT TISSUES: No widening of the sacroiliac joints. No radiopaque foreign body. OTHER: IMPRESSION: No significant abnormality Electronically authenticated by: IDA SOTO Date: 2023-02-04 18:18 [facility] 02-04-2023 Note PROCEDURE: XR HIP LT 2 3V WO PELVIS COMPARISON: None. HISTORY: Rheumatoid factor positive rheumatoid arthritis FINDINGS: BONES:No acute fracture or dislocation. No significant degenerative changes. Heterotopic ossification superior to the greater trochanter SOFT TISSUES:Negative. No visible soft tissue swelling. EFFUSION:None visible. OTHER: Negative. IMPRESSION: No evidence of erosive or inflammatory arthritis Electronically authenticated by: IDA SOTO Date: 2023-02-04 18:17 [facility] 02-04-2023 Note PROCEDURE: XR FOOT R T MIN 3 VIEWS COMPARISON: None. HISTORY: Rheumatoid factor positive rheumatoid arthritis FINDINGS: BONES:No acute fracture or dislocation. Mild enthesopathic spurring of the calcaneus at the Achilles insertion. SOFT TISSUES:Negative. No visible soft tissue swelling. EFFUSION:None visible. OTHER: Negative. IMPRESSION: Mild calcaneal Achilles enthesopathy Electronically authenticated by: IDA STOO Date: 2023-02-04 18:16 [facility] 01-29-2023 Note TB negative from 02/05 PA submitted via CMMs. Saira Kramer PharmD, BCACP 02/26/23 2:43 PM [facility] [phone] [facility] 01-29-2023 Note LVM with pt to confi rm shipment from [facility]. F/U confirm shipment from [facility]. Goyo Winston [facility] 03/26/2310:03 AM [facility] 01-29-2023 Note Called and spoke wit h the patient and she has not received medication yet, but the order has been placed from [facility]. We will F/U taco to make sure the medication was received. Melissa Arizmendi, Director Of Search Engine Optimization 03/15/23 3:49 PM [facility] 01-29-2023 Note Supervising Physicia n & [...] Tai, PharmD, BCACP, CSP 01/29/23 8:50 AM [facility] [phone] [facility] 01-29-2023 Note Called pt, she will contact [facility] soon to discuss filling. F/U check rx/shipment status next week Goyo Winston [facility] 231:12 PM [facility] 01-29-2023 Note Prior Authorization for [employer] has been approved 02/26/23-02/27/24. Case ID/Authorization Number:[id number] Must be filled at [facility], sending msg to MD for transfer. Calling pt to discuss filling at [facility]. LVM. F/U contact pt to discuss filling at [facility]. Goyo Winston [facility] 238:19 AM [facility] 01-29-2023 Note I called the patient to ensure that she has received his medication from [facility] and address any questions he may have, lvm. Kaleigh Rosas, [facility] 232:53 PM [facility] 01-29-2023 Note I called and spoke w ith the pt to confirm delivery and she has received medication with no follow up questions. 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 Radiology is Once you have been placed into the phone tree, it will prompt with the (more content not included)... [facility] Evaluation + Plan note No data available for this section General [facility] Evaluation note Diagnosis Encounter for repeat Pap smear due to previous insuff cervical cells documented [facility] this [facility] No data available for this section [facility] Progress note No data available for this section [facility] Summary Purpose Family History No Family History Records FoundNo Family History Records FoundNo Family History Records FoundNo Family History Records FoundNo Family History Records Found Advance Directives No Advanced Directives Records FoundNo Advanced Directives Records FoundNo Advanced Directives Records FoundNo Advanced Directives Records FoundNo Advanced Directives Records Found Additional Source Comments INFORMATION SOURCE (unrecogn ized section and content) DATE CREATED AUTHOR 03/16/2021 [facility] DATE CREATED AUTHOR AUTHOR'S ORGANIZ ATION 02/15/2023 [facility] DATE CREATED AUTHOR AUTHOR'S ORGANIZ ATION 04/08/2023 [facility] DATE CREATED AUTHOR AUTHOR'S ORGANIZ ATION 08/21/2023 [facility] DATE CREATED AUTHOR AUTHOR'S ORGANIZ ATION 11/17/2023 [facility] EPIC Patient Care team informatio n (unrecognized section and content) Textbook Associate Relationship Specialty Start Date End Date Mariza Wright MD [address] [place] [id number] PCP - General 09/27/23 Reason for Visit [...] BE BASED ON THE PRIMARY CLINICAL RECORDS. [employer] provides no warranty or guarantee of the accuracy or completeness of information in this document.
--- NOTE | 2024-02-23 08:20 | CA_ITS ---
Patient Name: MANOHAR DUDLEY MR#: [id number] : 1970 Exam Date: 02/23/2024 Ordering Doctor: DR MARIZA BASS . ECHOCARDIOGRAM REPORT PROCEDURE: CA ECHO DOPPLER COMPLETE INDICATIONS: Chest pain COMPARISON: None. DESCRIPTION: COMPLETE ECHOCARDIOGRAM Real-time transthoracic echocardiography with 2D, M-mode, spectral and color flow Doppler performed. QUALITY: Technical quality was good. LEFT VENTRICLE: Normal chamber size. Normal left ventricular wall thickness. LV EF: Global left ventricular systolic function is normal. Calculated left ventricular ejection fraction is 63%. No segmental wall motion abnormalities. DIASTOLIC: Normal diastolic function. ATRIAL SEPTUM: Inadequately seen. LEFT ATRIUM: Normal chamber size. RIGHT ATRIUM: Mild dilatation. RIGHT VENTRICLE: Normal chamber size. Normal right ventricular systolic function. TRICUSPID VALVE: Normal mobility and thickness. Mild regurgitation. No evidence of pulmonary hypertension. RVSP 25mmHg. MITRAL VALVE: Normal mobility and thickness. No evidence of mitral valve stenosis. There is no mitral annular calcification. Trivial mitral regurgitation. AORTIC VALVE: Normal trileaflet appearance. No visible sclerosis. Normal leaflet mobility. No evidence of aortic valve stenosis. No aortic regurgitation. AORTIC ROOT: Normal diameter and appearance. PULMONIC VALVE: Normal thickness and mobility. No stenosis. Trivial regurgitation. PERICARDIUM: No evidence of pericardial effusion. IVC: Collapses with inspirations. Normal size. CONCLUSION: 1. Global left ventricular systolic function is normal; visually estimated ejection fraction is 60 to 65% 2. Normal right ventricular size and systolic function 3. Normal diastolic function 4. Right atrium is mildly dilated 5. Mild tricuspid regurgitation Adult Echocardiography Procedure Report Left Ventricle LVEDD (3.7 - 5.6 cm): 3.89 cm LVESD (2.2 - 4.0 cm): 2.73 cm LVIVS thickness (0.6 - 1.2 cm): 0.81 cm LVPW thickness (0.5 - 1.0 cm): 0.84 cm e': 0.14 m/s E - e': 4.86 LVOT Max Gradient: 2.54 mm[Hg] LVOT Area (cm2): 0.80 m/s Peak Velocity (LVOT): 0.80 m/s Mean Velocity (LVOT): 0.56 m/s LVOT Diameter 1.98 cm Left Ventricular Ejection Fraction: 62.70 % Left Atrium LA Volume Index (2D A2C): 24.67 ml/m2 Left Atrium Systolic Dimension: 3.16 cm Mitral Valve MV E to A Ratio: 1.52 Mitral Valve A-Wave Peak Velocity: 0.46 m/s Mitral Valve E-Wave Peak Velocity: 0.70 m/s Right Ventricle RV Internal Diastolic Dimension: 2.81 cm Aorta AO Root Diam: 2.84 cm Ascending Ao Diam: 2.57 cm Aortic Valve AoV Area (Peak Erlin): 2.72 cm2, 2.72 cm2 AoV Area (VTI): 2.54 cm2, 2.54 cm2 Peak Velocity(Antegrade Flow): 0.90 m/s Peak Gradient(Antegrade Flow): 3.26 mm[Hg] Mean Velocity(Antegrade Flow): 0.62 m/s Mean Gradient(Antegrade Flow): 1.75 mm[Hg] Velocity Time Integral: 22.16 cm Tricuspid Valve Peak Velocity (Regurgitant Flow): 2.18 m/s, 2.20 m/s, 2.36 m/s Pulmonic Valve Peak Velocity: 0.64 m/s Peak Gradient: 1.58 mm[Hg], 1.67 mm[Hg] Right Atrium Right Atrium Systolic Pressure: 51.37 ml, 51.37 ml Dictated by: Ashli Solorzano M.D. on 02/23/2024 at 14:44 Approved by: Ashli Solorzano M.D. on 02/23/2024 at 14:47
== END 2024-02-23 07:34 | disposition home or self-care (01) ==
LOC: CARD 07:35
PROVIDERS: PCP Family Medicine; Visit Provider Family Medicine
DX: R07.9 Chest pain, unspecified (principal)
CPT/HCPCS: 93306

== ENCOUNTER 2024-02-25 08:29 | Outpatient (OUT) | payer BC, SELFPAY ==
--- OUTSIDE RECORDS SUMMARY | 2024-02-25 08:42 | XMS_ITS | CCD ---
Author Organization [facility] Care Team Providers Care Accountant Auditor Name Role Phone HOY, MARIZA Consulting Unavailable [...] Unavailable WEST, DR IDA Temple Consult[employer] Unavailable PASTOR JACQUI Consulting Unavailable HOY, MARIZA Primary Care Unavailable PASTORJACQUI Attending Unavailable PASTOR, JACQUI Admitting Unavailable Hoy, Mariza Primary Care Physician Mariza Wright Referring Unavailable Joselo STARKS Attending Unavailable Joselo STARKS Attending Unavailable Joselo STARKS Attending Unavailable EYAL ALEGRIA Attending Unavailable TOMAS CLINTON I Attending Unavailable TOMAS CLINTON I Attending Unavailable ASHLEIGH ZEE Attending Unavailable Mariza Wright MD Primary Care Provider [phone] FELIX WHITNEY Attending Unavailable FELIX WHITNEY Attending Unavailable EASTON KEENE Attending Unavailable Allergies Allergy Classification Reported Allergen(s) Allergy Type Date of Onset Reaction(s) Facility (2 sources) Benzoyl Peroxide; Translations: [BENZOYL PEROXIDE] Drug Allergy 07-22-20 15 [facility] Repository (1 source) Desonide Drug Allergy 04-05-20 13 [facility] Repository (1 source) Sulfonamides (Antibiotic) Drug allergy (disorder) 04-05-20 13 [facility] Rep[facility] (1 source) Misc-Other; Translations: [Misc-Other] Propensity to adverse reactions (disorder) 07-22-20 15 [facility] Repository (3 sources) Sulfonamides (Antibiotic); Translations: [sulfa drugs] Drug allergy Discoloration of skin (finding) [facility] [place] (1 source) Adhesive agent; Translations: [ADHESIVE] Propensity to adverse reactions to drug (disorder) 09-21-20 14 [facility] Repository (2 sources) Sulfamethoxazole / Trimethoprim; Translations: [SULFAMETHOXAZOLE-T RIMETHOPRIM] Drug Allergy 02-02-20 23 Rash [facility] Repository (1 source) Sulfonamides (Antibiotic); Translations: [SULFA (SULFONAMIDE ANTIBIOTICS)] Propensity to adverse reactions to drug (disorder) 09-21-20 14 [facility] Repository (1 source) ADHESIVE TAPE-SILICONES; Translations: [ADHESIVE TAPE-SILICONES] Propensity to adverse reactions to drug (disorder) 10-07-19 22 [facility] Repository (1 source) Benzoyl Peroxide Drug [...] 09-30-2022 Episodic Other aftercare (6 sources) Other fpc (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; Translations: [OTH [facility] CURRENT DRUG THERAPY] Onset: 08-25-2022 Episodic Other [...] Interpretation Reference Range Facility Follow-Upon 08-19-2023 Follow-Up [id number] Yamileth Small 1970 F Date Provider Department Mio 08/19/2023 TOMAS ROBERTO I [facility] No family history on file Level of Service:73125 [place] OFFICE/OUTPATIENT ESTABLISHED MOD MDM 30-39 MIN Reason for Visit and Comments: Follow-up [468555] - Follow up [facility] Orders Onlyon 08-12-2023 Orders Only [id number] Yamileth Small 1970 F Date Provider Department Mio 08/12/2023 [id number], HISTORICAL [facility] PRIM [facility] No family history on file [facility] 36on 08-10-2023 36 Left detailed messag e that labs were placed. Normal [facility] Orders Onlyon 08-10-2023 Orders Only [id number] Yamileth Small 1970 F Date Provider Department Mio 08/10/2023 TOMAS ROBERTO I [facility] RHEUM [facility] No family history on file [facility] 36on 08-05-2023 36 Patient has an apt o n and is wondering if there are any labs she needs to do prior to her visit. Please advise. Thanks! [facility] 36 Patient called [facility] Follow-Upon 06-03-2023 Follow-Up [id number] Yamileth Small 1970 F Date Provider Department Center 06/03/2023 215-TOMAS CLINTON I [facility] No family history on file Level of Service:73405 [place] OFFICE/OUTPATIENT ESTABLISHED MOD MDM 30-39 MIN () Reason for Visit and Comments: Follow-up [937005] - Follow up [facility] 36on 04-08-2023 36 Last visit pt instru cted to finish current supply and then stop [facility] Ambulatory Visit Summaryon 0 04-07-2023 Ambulatory [...] lupus erythematosus Varicose veins of legs Normal [facility] General Surgery Office/Clini c Noteon 04-07-2023 General [...] SARS-CoV-2 (COVID-19) mRNA-1273 vaccine 08/07/2022 Recorded SARSCoV2 mRNA(alfbfgctr-ptmp-kvakbh) vac 01/01/2022 Recorded SARS-CoV-2 (COVID-19) mRNA-1273 vaccine [...] Patient due for screening colonoscopy 03/24/2033. Normal [facility] Pathology Noteon 03-29-2023 Pathology Note [id number]#1.00CD:127 Normal [facility] Outside Colonoscopyon 2022 Outside Colonoscopy [id number]#1.00CD:127 Normal [facility] Pre-Certification Formon Pre-Certification Form [id number]#1.00CD:127 [facility] Consent for Procedure/Surger yon 03-05-2023 Consent for Procedure/Surgery [id number]#1.00CD:127 [facility] Facesheeton 03-04-2023 Facesheet [id number]#1.00CD:127 Normal [facility] Ambulatory Visit Summaryon 0 03-03-2023 Ambulatory Visit [...] lupus erythematosus Varicose veins of legs Normal [facility] RAD - CT Reporton 03-03-2023 RAD - CT Report [id number]#1.00CD:127 Normal [facility] Orders Onlyon 03-02-2023 Orders Only [id number] Yamileth Small 1970 F Date Provider Department Center 03/02/2023 Mary Alice-EYAL ALEGRIA [email or web address] RHEUM [email or web address]] No family history on file Normal [facility] Physician Referralon 023 Physician Referral [id number]#1.00CD:[address] [facility] CT ABD/PELV W CONon 02-13-[address] [...] by: IDA SOTO Date: 2023-02-12 09:54 Normal [facility] Orders Onlyon 02-08-2023 Orders Only [id number] Yamileth Small 1970 F Date Provider Department Center 02/08/2023 [id number], HISTORICAL [facility] MED [facility] No family history on file Normal [facility] QUANTIFERON TB GOLD PLUSon 0 02-07-2023 QuantiFERON Criteria Comment Normal [facility] Comment on above: Result Comment: [...] test. Performed By: #### Q NTTB #### [facility] [address] [place] [address] Dr. Jazmyn Saavedra QuantiFERON Incubation Incubation performed. Normal [facility] Comment on above: Performed By: #### Q NTTB #### [facility] [address] [place] [address] Dr. Jazmyn Saavedra QuantiFERON Mitogen Value 6.87 IU/mL Normal [facility] Comment on above: Performed By: #### Q NTTB #### [facility] [address] [place] [address] Dr. Jazmyn Saavedra QuantiFERON Nil Value 0.00 IU/mL Normal [facility] Comment on above: Performed By: #### Q NTTB #### [facility] [address] [place] [address] Dr. Jazmyn Saavedra QuantiFERON TB1 Ag Value 0.00 IU/mL Normal [facility] Comment on above: Performed By: #### Q NTTB #### [facility] [address] [place] [address] Dr. Jazmyn Saavedra QuantiFERON TB2 Ag Value 0.00 IU/mL [facility] Comment on above: Performed By: #### Q NTTB #### [facility] [address] [place] [address] Dr. Jazmyn Saavedra QuantiFERON-TB Gold Plus Negative Normal Negative [facility] Comment on above: Result Comment: No r esponse to M tuberculosis antigens detected. Infection with M tuberculosis is unlikely, but high risk individuals should be considered for additional testing (ATS/IDSA/CDC Clinical Practice Guidelines, 2017). The reference range is an Antigen minus Nil result of <0.35 IU/mL. Chemiluminescence immunoassay methodology Performed By: #### Q NTTB #### [facility] [address] [place] [address] Dr. Jazmyn Saavedra HEP B COREon 02-06-2023 Hep B Core Ab, Tot Negative Normal Negative [facility] Comment on above: Performed By: #### S EDR #### [facility] [address] [place] [address] Dr. Jazmyn Saavedra HEP B SURFACE ANTIGEN SCREEN on 02-06-2023 HBsAg Screen Negative Normal Negative [facility] Comment on above: Performed By: #### H BSANS #### [facility] [address] [place] [address] Dr. Jazmyn Saavedra CBC AUTO DIFFon 02-05-2023 BASO # 0.0 103/ul Normal 0.0-0.1 [facility] Comment on above: Performed By: #### C BC #### [facility] [address] [place] [address] Dr. Jazmyn Saavedra Basophils/100 WBC (Bld) 0.5 % Normal 0.2-2.0 [facility] Comment on above: Performed By: #### C BC #### [facility] [address] [place] [address] Dr. Jazmyn Saavedra EO # 0.0 103/ul Normal 0.0-0.7 [facility] Comment on above: Performed By: #### C BC #### [facility] [address] [place] [address] Dr. Jazmyn Saavedra Eosinophils/100 WBC (Bld) 0.8 % Critically low 0.9-7.0 [facility] Comment on above: Performed By: #### C BC #### [facility] [address] [place] [address] Dr. Jazmyn Saavedra Erythrocyte distribution width (RBC) [Ratio] 13.2 % Normal 11.0-15.0 [facility] Comment on above: Performed By: #### C BC #### [facility] [address] [place] [address] Dr. Jazmyn Saavedra Hematocrit (Bld) [Volume fraction] 41.1 % Normal 36.0-48.0 [facility] Comment on above: Performed By: #### C BC #### [facility] [address] [place] [address] Dr. Jazmyn Saavedra Hemoglobin (Bld) [Mass/Vol] 13.4 g/dL Normal 12.0-16.0 [facility] Comment on above: Performed By: #### C BC #### [facility] [address] [place] [address] Dr. Jazmyn Saavedra IG # 0.01 10e3/ul Normal 0.00-0.03 [facility] Comment on above: Performed By: #### C BC #### [facility] [address] [place] [address] Dr. Jazmyn Saavedra IG % 0.3 % Normal 0.0-0.5 [facility] Comment on above: Performed By: #### C BC #### [facility] [address] [place] [address] Dr. Jazmyn Saavedra LYMPH # 1.2 103/ul Normal 1.2-3.8 [facility] Comment on above: Performed By: #### C BC #### [facility] [address] [place] [address] Dr. Jazmyn Saavedra Lymphocytes/100 WBC (Bld) 31.9 % Normal 20.5-60.0 [facility] Comment on above: Performed By: #### C BC #### [facility] [address] [place] [address] Dr. Jazmyn Saavedra MANUAL DIFF REQ NO Normal [facility] Comment on above: Performed By: #### C BC #### [facility] [address] [place] [address] Dr. Jazmyn Saavedra MCH (RBC) [Entitic mass] 30.6 pg Normal 26.7-34.0 [facility] Comment on above: Performed By: #### C BC #### [facility] [address] [place] [address] Dr. Jazmyn Saavedra MCHC (RBC) [Mass/Vol] 32.6 g/dL Normal 29.9-35.2 [facility] Comment on above: Performed By: #### C BC #### [facility] [address] [place] [address] Dr. Jazmyn Saavedra MCV (RBC) [Entitic vol] 93.8 fL Normal 81.0-99.0 [facility] Comment on above: Performed By: #### C BC #### [facility] [address] [place] [address] Dr. Jazmyn Saavedra MONO # 0.5 103/ul Normal 0.3-0.8 [facility] Comment on above: Performed By: #### C BC #### [facility] [address] [place] [address] Dr. Jazmyn Saavedra Monocytes/100 WBC (Bld) 14.1 % Critically high 1.7-12.0 [facility] Comment on above: Performed By: #### C BC #### [facility] [address] [place] [address] Dr. Jazmyn Saavedra NEUT # 1.9 103/ul Normal 1.4-6.5 [facility] Comment on above: Performed By: #### C BC #### [facility] [address] [place] [address] Dr. Jazmyn Saavedra Neutrophils/100 WBC (Bld) 52.4 % Normal 43.0-75.0 [facility] Comment on above: Performed By: #### C BC #### [facility] [address] [place] [address] Dr. Jazmyn Saavedra Platelet mean volume (Bld) [Entitic vol] 9.4 fL Critically low 9.5-13.5 [facility] Comment on above: Performed By: #### C BC #### [facility] [address] [place] [address] Dr. Jazmyn Saavedra PLT 342 103/ul Normal 150-450 [facility] Comment on above: Performed By: #### C BC #### [facility] [address] [place] [address] Dr. Jazmyn Saavedra RBC 4.38 106/ul Normal 4.20-5.40 [facility] Comment on above: Performed By: #### C BC #### [facility] [address] [place] [address] Dr. Jazmyn Saavedra WBC 3.7 103/ul Critically low 4.0-11.0 [facility] Comment on above: Performed By: #### C BC #### [facility] [address] [place] [address] Dr. Jazmyn Saavedra FREE THYROXINE INDEX T7on FTI 3.20 Normal 1.30-4.50 [facility] Comment on above: Performed By: #### S EDR #### [facility] [address] [address] [address] Jazmyn Saavedra T3U 36.0 % Normal 30.0-39.0 [facility] Comment on above: Performed By: #### S EDR #### [facility] [address] [address] [address] Jazmyn Saavedra T4 [Mass/Vol] 8.90 ug/dL Normal 4.80-13.90 [facility] Comment on above: Performed By: #### S EDR #### [facility] [address] [place] [address] Dr. Jazmyn Saavedra GLYCOHEMOGLOBIN A1Con 2022 ADA RECOMMENDATION SEE BELOW Normal [facility] Comment on above: Result Comment: ADA RECOMMENDED LIMIT 4.0 - 6.0 ADA THERAPEUTIC TARGET < 7.0 ACTION SUGGESTED > 7.0 Performed By: #### S EDR #### [facility] [address] [place] [address] Dr. Jazmyn Saavedra Glucose [Mass/Vol] 123 mg/dL Normal [facility] Comment on above: Performed By: #### S EDR #### [facility] [address] [place] [address] Dr. Jazmyn Saavedra HbA1c (Bld) [Mass fraction] 5.9 % Normal 4.5-6.2 [facility] Comment on above: Performed By: #### S EDR #### [facility] [address] [place] [address] Dr. Jazmyn Saavedra LIPID PROFILEon 02-05-2023 CHOL-HDL RATIO NORM SEE BELOW Normal [facility] Comment on above: Result Comment: 3.3 - 4.4 LOW RISK 4.4 - 7.1 AVERAGE RISK 7.1 - 11.0 MODERATE RISK >11.0 HIGH RISK Performed By: #### S EDR #### [facility] [address] [place] [address] Dr. Jazmyn Saavedra Cholesterol [Mass/Vol] 256 mg/dL Critically high <=200 [facility] Comment on above: Performed By: #### S EDR #### [facility] [address] [address] [address] Jazmyn Saavedra Cholesterol in HDL [Mass/Vol] 108 mg/dL Critically high 40-60 [facility] Comment on above: Performed By: #### S EDR #### [facility] [address] [address] [address] Jazmyn Saavedra Cholesterol in LDL [Mass/Vol] 139.4 mg/dL Normal [facility] Comment on above: Performed By: #### S EDR #### [facility] [address] [address] [address] Jazmyn Saavedra Cholesterol.total/ Cholesterol in HDL [Mass ratio] 2.4 {ratio} Normal [facility] Comment on above: Performed By: #### S EDR #### [facility] [address] [address] [address] Jazmny Saavedra HDL NORMAL > or = 60 mg/dl - LO W CARDIOVASCULAR RISK <40 mg/dl - HIGH CARDIOVASCULAR RISK Normal [facility] Comment on above: Performed By: #### S EDR #### [facility] [address] [address] [address] Jazmyn Saavedra LDL CALC NORMAL SEE BELOW Normal [facility] Comment on above: Result Comment: <100 mg/dl OPTIMAL 100 - 129 mg/dl NEAR OR ABOVE OPTIMAL 130 - 159 mg/dl BORDERLINE HIGH 160 - 189 mg/dl HIGH >190 mg/dl VERY HIGH Performed By: #### S EDR #### [facility] [address] [address] [address] Jazmyn Saavedra Triglyceride [Mass/Vol] 43 mg/dL Normal <=150 [facility] Comment on above: Performed By: #### S EDR #### [facility] [address] [place] [address] Dr. Jazmyn Saavedra VLDL CALC 8.6 mg/dL Normal [facility] Comment on above: Performed By: #### S EDR #### [facility] [address] [address] [address] Jazmyn Saavedra Orders Onlyon 02-05-2023 Orders Only [id number] Yamileth Small 1970 F Date Provider Department Center 02/05/2023 [id number], HISTORICAL [facility] PHYS MED [facility] No family history on file Normal [facility] PROF 14(COMP METB)on 023 Albumin [Mass/Vol] 4.0 g/dL Normal 3.4-5.0 [facility] Comment on above: Performed By: #### T 7, CMP, LIPID, TSH #### [facility] [address] [address] [address] Jazmyn Saavedra Albumin/Globulin [Mass ratio] 0.9 {ratio} Normal [facility] Comment on above: Performed By: #### T 7, CMP, LIPID, TSH #### [facility] [address] [address] [address] Jazmyn Saavedra ALP [Catalytic activity/Vol] 57 U/L Normal 46-116 [facility] Comment on above: Performed By: #### T 7, CMP, LIPID, TSH #### [facility] [address] [address] [address] Jazmyn Saavedra ALT [Catalytic activity/Vol] 23 U/L Normal 14-59 [facility] Comment on above: Performed By: #### T 7, CMP, LIPID, TSH #### [facility] [address] [address] [address] Jazmyn Saavedra Anion gap [Moles/Vol] 13.8 mmol/L Normal [facility] Comment on above: Performed By: #### T 7, CMP, LIPID, TSH #### [facility] [address] [address] [address] Jazmyn Saavedra AST [Catalytic activity/Vol] 23 U/L Normal 15-37 [facility] Comment on above: Performed By: #### T 7, CMP, LIPID, TSH #### [facility] [address] [address] [address] Jazmyn Saavedra Bilirubin [Mass/Vol] 0.6 mg/dL Normal 0.2-1.0 [facility] Comment on above: Performed By: #### T 7, CMP, LIPID, TSH #### [facility] [address] [address] [address] Jazmyn Saavedra Calcium [Mass/Vol] 9.6 mg/dL Normal 8.5-10.1 [facility] Comment on above: Performed By: #### T 7, CMP, LIPID, TSH #### [facility] [address] [place] [address] Dr. Jazmyn Saavedra Chloride [Moles/Vol] 100 mmol/L Normal 98-107 [facility] Comment on above: Performed By: #### T 7, CMP, LIPID, TSH #### [facility] [address] [place] [address] Dr. Jazmyn Saavedra CO2 [Moles/Vol] 29.9 mmol/L Normal 21.0-32.0 [facility] Comment on above: Performed By: #### T 7, CMP, LIPID, TSH #### [facility] [address] [place] [address] Dr. Jazmyn Saavedra Creatinine [Mass/Vol] 0.89 mg/dL Normal 0.55-1.02 [facility] Comment on above: Performed By: #### T 7, CMP, LIPID, TSH #### [facility] [address] [place] [address] Dr. Jazmyn Saavedra EGFR-AF SOUTH [place]OREAN >60 Normal >=60 [facility] Comment on above: Performed By: #### T 7, CMP, LIPID, TSH #### [facility] [address] [place] [address] Dr. Jazmyn Saavedra EGFR-NON AF [place]OREAN >60 Normal >=60 [facility] Comment on above: Performed By: #### T 7, CMP, LIPID, TSH #### [facility] [address] [place] [address] Dr. Jazmyn Saavedra Globulin (S) [Mass/Vol] 4.4 g/dL Normal [facility] Comment on above: Performed By: #### T 7, CMP, LIPID, TSH #### [facility] [address] [place] [address] Dr. Jazmyn Saavedra Glucose [Mass/Vol] 89 mg/dL Normal 74-106 [facility] Comment on above: Performed By: #### T 7, CMP, LIPID, TSH #### [facility] [address] [place] [address] Dr. Jazmyn Saavedra Potassium [Moles/Vol] 3.7 mmol/L Normal 3.5-5.1 [facility] Comment on above: Performed By: #### T 7, CMP, LIPID, TSH #### [facility] [address] [place] [address] Dr. Jazmyn Saavedra Protein [Mass/Vol] 8.4 g/dL Critically high 6.4-8.2 [facility] Comment on above: Performed By: #### T 7, CMP, LIPID, TSH #### [facility] [address] [place] [address] Dr. Jazmyn Saavedra Sodium [Moles/Vol] 140 mmol/L Normal 136-145 [facility] Comment on above: Performed By: #### T 7, CMP, LIPID, TSH #### [facility] [address] [place] [address] Dr. Jazmyn Saavedra Urea nitrogen [Mass/Vol] 17.0 mg/dL Normal 7.0-18.0 [facility] Comment on above: Performed By: #### T 7, CMP, LIPID, TSH #### [facility] [address] [place] [address] Dr. Jazmyn Saavedra Urea nitrogen/Creatinin e [Mass ratio] 19.1 mg/mg Normal [facility] Comment on above: Performed By: #### T 7, CMP, LIPID, TSH #### [facility] [address] [place] [address] Dr. Jazmyn Saavedra TSHon 02-05-2023 TSH 0.984 uIU/mL Normal 0.358-3.740 [facility] Comment on above: Performed By: #### S EDR #### [facility] [address] [place] [address] Dr. Jazmyn Saavedra Documentationon 01-29-2023 Documentation [id number] Yamileth Small 1970 F Date Provider Department Center 01/29/2023 EDUARD ALEXANDRE [facility] No family history on file Reason for Visit and Comments: Specialty Pharmacy Note: [facility] Prescription [Other] [facility] Follow-Upon 01-28-2023 Follow-Up [id number] Yamileth Small 1970 F Date Provider Department Center 01/28/2023 Mary Alice-EYAL ALEGRIA [facility] RHEUM [facility] No family history on file Level of Service:50612 [place] OFFICE/OUTPATIENT ESTABLISHED MOD MDM 30-39 MIN (GC) [facility] PAP ACOG PANEL 2: 30 to 65on 10-07-2022 . . Normal [facility] Comment on above: Result Comment: Perf ormed at: [facility] Performed By: #### S EDR #### [facility] [address] [address] [address] Jazmyn Saavedra Age Gdln ACOG Testing 30-65 Normal [facility] Comment on above: Performed By: #### S EDR #### [facility] [address] [address] [address] Jazmyn Saavedra DIAGNOSIS: Comment Normal [facility] Comment on above: Result Comment: NEGA TIVE FOR INTRAEPITHELIAL LESION OR MALIGNANCY. Performed at: [facility] Performed By: #### S EDR #### [facility] [address] [address] [address] Jazmyn Saavedra HPV Aptima Negative Normal Negative [facility] Comment on above: Result Comment: This nucleic acid amplification test detects fourteen high-risk HPV types (16,18,31,33,35,39,45,51,52,56,58,59,66,68) without differentiation. Performed at: =G Performed By: #### S EDR #### [facility] [address] [address] [address] Jazmyn Saavedra HPV Genotype Reflex Comment Normal [facility] [facility] Comment on above: Result Comment: Crit eria not met, HPV Genotype not performed. Performed at: [facility] Performed By: #### S EDR #### [facility] [address] [place] [address] Dr. Jazmyn Saavedra Methodology: Comment Normal [facility] Comment on above: Result Comment: This liquid based ThinPrep(R) pap test was screened with the use of an image guided system. Performed at: [facility] Performed By: #### S EDR #### [facility] [address] [place] [address] Dr. Jazmyn Saavedra Note: Comment Normal [facility] Comment on above: Result Comment: [...] WB Performed By: #### S EDR #### [facility] [address] [place] [address] Dr. Jazmyn Saavedra Performed by: Comment Normal [facility] Comment on above: Result Comment: Daryl Calhoun, Editor At Large (ASCP) Performed at: [facility] Performed By: #### S EDR #### [facility] [address] [place] [address] Dr. Jazmyn Saavedra Specimen adequacy: Comment Normal [facility] Comment on above: Result Comment: Sati sfactory for evaluation. Endocervical component may not be distinguished in cases of atrophy. Performed at: [facility] Performed By: #### S EDR #### [facility] [address] [place] [address] Dr. Jazmyn Saavedra Orders Onlyon 08-31-2022 Orders Only [id number] Yamileth Small 1970 F Date Provider Department Center 08/31/2022 [id number], HISTORICAL [facility] MED [facility] No family history on file Normal [facility] XR DEXA BONE DENSITYon 08-28 XR [...] GILBERT GEORGE Date: 2022-08-28 08:47 Normal [facility] CBC AUTO DIFFon 08-25-2022 BASO # 0.0 103/ul Normal 0.0-0.1 [facility] Comment on above: Performed By: #### S EDR #### [facility] [address] [address] [address] Jazmyn Saavedra Basophils/100 WBC (Bld) 0.5 % Normal 0.2-2.0 [facility] Comment on above: Performed By: #### S EDR #### [facility] [address] [address] [address] Jazmyn Saavedra EO # 0.1 103/ul Normal 0.0-0.7 [facility] Comment on above: Performed By: #### S EDR #### [facility] [address] [address] [address] Jazmyn Saavedra Eosinophils/100 WBC (Bld) 1.2 % Normal 0.9-7.0 [facility] Comment on above: Performed By: #### S EDR #### [facility] [address] [address] [address] Jazmyn Saavedra Erythrocyte distribution width (RBC) [Ratio] 13.2 % Normal 11.0-15.0 [facility] Comment on above: Performed By: #### S EDR #### [facility] [address] [address] [address] Jazmyn Saavedra Hematocrit (Bld) [Volume fraction] 38.4 % Normal 36.0-48.0 [facility] Comment on above: Performed By: #### S EDR #### [facility] [address] [address] [address] Jazmyn Saavedra Hemoglobin (Bld) [Mass/Vol] 12.6 g/dL Normal 12.0-16.0 [facility] Comment on above: Performed By: #### S EDR #### [facility] [address] [address] [address] Jazmyn Saavedra IG # 0.01 10e3/ul Normal 0.00-0.03 [facility] Comment on above: Performed By: #### S EDR #### [facility] [address] [address] [address] Jazmyn Saavedra IG % 0.2 % Normal 0.0-0.5 [facility] Comment on above: Performed By: #### S EDR #### [facility] [address] [place] [address] Dr. Jazmyn Saavedra LYMPH # 1.7 103/ul Normal 1.2-3.8 [facility] Comment on above: Performed By: #### S EDR #### [facility] [address] [place] [address] Dr. Jazmyn Saavedra Lymphocytes/100 WBC (Bld) 40.8 % Normal 20.5-60.0 [facility] Comment on above: Performed By: #### S EDR #### [facility] [address] [place] [address] Dr. Jazmyn Saavedra MANUAL DIFF REQ NO Normal [facility] Comment on above: Performed By: #### S EDR #### [facility] [address] [address] [address] Jazmyn Saavedra MCH (RBC) [Entitic mass] 31.0 pg Normal 26.7-34.0 [facility] Comment on above: Performed By: #### S EDR #### [facility] [address] [address] [address] Jazmyn Saavedra MCHC (RBC) [Mass/Vol] 32.8 g/dL Normal 29.9-35.2 [facility] Comment on above: Performed By: #### S EDR #### [facility] [address] [address] [address] Jazmyn Saavedra MCV (RBC) [Entitic vol] 94.3 fL Normal 81.0-99.0 [facility] Comment on above: Performed By: #### S EDR #### [facility] [address] [address] [address] Jazmyn Saavedra MONO # 0.5 103/ul Normal 0.3-0.8 [facility] Comment on above: Performed By: #### S EDR #### [facility] [address] [address] [address] Jazmyn Saavedra Monocytes/100 WBC (Bld) 11.9 % Normal 1.7-12.0 [facility] Comment on above: Performed By: #### S EDR #### [facility] [address] [place] [address] Dr. Jazmyn Saavedra NEUT # 1.9 103/ul Normal 1.4-6.5 [facility] Comment on above: Performed By: #### S EDR #### [facility] [address] [place] [address] Dr. Jazmyn Saavedra Neutrophils/100 WBC (Bld) 45.4 % Normal 43.0-75.0 [facility] Comment on above: Performed By: #### S EDR #### [facility] [address] [place] [address] Dr. Jazmyn Saavedra Platelet mean volume (Bld) [Entitic vol] 9.3 fL Critically low 9.5-13.5 [facility] Comment on above: Performed By: #### S EDR #### [facility] [address] [address] [address] Jazmyn Saavedra PLT 309 103/ul Normal 150-450 [facility] Comment on above: Performed By: #### S EDR #### [facility] [address] [place] [address] Dr. Jazmyn Saavedra RBC 4.07 106/ul Critically low 4.20-5.40 [facility] Comment on above: Performed By: #### S EDR #### [facility] [address] [address] [address] Jazmyn Saavedra WBC 4.2 103/ul Normal 4.0-11.0 [facility] Comment on above: Performed By: #### S EDR #### [facility] [address] [place] [address] Dr. Jazmyn Saavedra CRPon 08-25-2022 CRP [Mass/Vol] mg/L Normal <=1.0 [facility] Comment on above: Performed By: #### C RP, CMP, LIPID #### [facility] [address] [place] [address] Dr. Jazmyn Saavedra LIPID PROFILEon 08-25-2022 CHOL-HDL RATIO NORM SEE BELOW Normal [facility] Comment on above: Result Comment: 3.3 - 4.4 LOW RISK 4.4 - 7.1 AVERAGE RISK 7.1 - 11.0 MODERATE RISK >11.0 HIGH RISK Performed By: #### C RP, CMP, LIPID #### [facility] [address] [place] [address] Dr. Jazmyn Saavedra Cholesterol [Mass/Vol] 251 mg/dL Critically high <=200 [facility] Comment on above: Performed By: #### C RP, CMP, LIPID #### [facility] [address] [place] [address] Dr. Jazmyn Saavedra Cholesterol in HDL [Mass/Vol] 102 mg/dL Critically high 40-60 [facility] Comment on above: Performed By: #### C RP, CMP, LIPID #### [facility] [address] [place] [address] Dr. Jazmyn Saavedra Cholesterol in LDL [Mass/Vol] 135.0 mg/dL Normal [facility] Comment on above: Performed By: #### C RP, CMP, LIPID #### [facility] [address] [place] [address] Dr. Jazmyn Saavedra Cholesterol.total/ Cholesterol in HDL [Mass ratio] 2.5 {ratio} Normal [facility] Comment on above: Performed By: #### C RP, CMP, LIPID #### [facility] [address] [place] [address] Dr. Jazmyn Saavedra HDL NORMAL > or = 60 mg/dl - LO W CARDIOVASCULAR RISK <40 mg/dl - HIGH CARDIOVASCULAR RISK Normal [facility] Comment on above: Performed By: #### C RP, CMP, LIPID #### [facility] [address] [place], [place] [address] Dr. Jazmyn Saavedra LDL CALC NORMAL SEE BELOW Normal [facility] Comment on above: Result Comment: <100 mg/dl OPTIMAL 100 - 129 mg/dl NEAR OR ABOVE OPTIMAL 130 - 159 mg/dl BORDERLINE HIGH 160 - 189 mg/dl HIGH >190 mg/dl VERY HIGH Performed By: #### C RP, CMP, LIPID #### [facility] [address] [place], [place] [address] Dr. Jazmyn Saavedra Triglyceride [Mass/Vol] 70 mg/dL Normal <=150 [facility] Comment on above: Performed By: #### C RP, CMP, LIPID #### [facility] [address] [place], [place] [address] Dr. Jazmyn Saavedra VLDL CALC 14.0 mg/dL Normal [facility] Comment on above: Performed By: #### C RP, CMP, LIPID #### [facility] [address] [place], [place] [address] Dr. Jazmyn Saavedra Orders Onlyon 08-25-2022 Orders Only [id number] Yamileth Small 1970 F Date Provider Department Center 08/25/2022 [id number], HISTORICAL [facility] No family history on file Normal [facility] PROF 14(COMP METB)on 022 Albumin [Mass/Vol] 3.9 g/dL Normal 3.4-5.0 [facility] Comment on above: Performed By: #### C RP, CMP, LIPID #### [facility] [address] [place], [place] [address] Dr. Jazmyn Saavedra Albumin/Globulin [Mass ratio] 1.0 {ratio} Normal [facility] Comment on above: Performed By: #### C RP, CMP, LIPID #### [facility] [address] [place], [place] [address] Dr. Jazmyn Saavedra ALP [Catalytic activity/Vol] 49 U/L Normal 46-116 [facility] Comment on above: Performed By: #### C RP, CMP, LIPID #### [facility] [address] [address] [address] Jazmyn Saavedra ALT [Catalytic activity/Vol] 17 U/L Normal 14-59 [facility] Comment on above: Performed By: #### C RP, CMP, LIPID #### [facility] [address] [address] [address] Jazmyn Saavedra Anion gap [Moles/Vol] 10.1 mmol/L Normal [facility] Comment on above: Performed By: #### C RP, CMP, LIPID #### [facility] [address] [place] [address] Dr. Jazmyn Saavedra AST [Catalytic activity/Vol] 19 U/L Normal 15-37 [facility] Comment on above: Performed By: #### C RP, CMP, LIPID #### [facility] [address] [place] [address] Dr. Jazmyn Saavedra Bilirubin [Mass/Vol] 0.5 mg/dL Normal 0.2-1.0 [facility] Comment on above: Performed By: #### C RP, CMP, LIPID #### [facility] [address] [place] [address] Dr. Jazmyn Saavedra Calcium [Mass/Vol] 9.3 mg/dL Normal 8.5-10.1 [facility] Comment on above: Performed By: #### C RP, CMP, LIPID #### [facility] [address] [place] [address] Dr. Jazmyn Saavedra Chloride [Moles/Vol] 103 mmol/L Normal 98-107 [facility] Comment on above: Performed By: #### C RP, CMP, LIPID #### [facility] [address] [place] [address] Dr. Jazmyn Saavedra CO2 [Moles/Vol] 30.1 mmol/L Normal 21.0-32.0 [facility] Comment on above: Performed By: #### C RP, CMP, LIPID #### [facility] [address] [place] [address] Dr. Jazmyn Saavedra Creatinine [Mass/Vol] 0.80 mg/dL Normal 0.55-1.02 [facility] Comment on above: Performed By: #### C RP, CMP, LIPID #### [facility] [address] [address] [address] Jazmyn Saavedra EGFR-AF SOUTH KOREAN >60 Normal >=60 [facility] Comment on above: Performed By: #### C RP, CMP, LIPID #### [facility] [address] [address] [address] Jazmyn Saavedra EGFR-NON AF [place]OU[place]OREAN >60 Normal >=60 [facility] Comment on above: Performed By: #### C RP, CMP, LIPID #### [facility] [address] [place] [address] Dr. Jazmyn Saavedra Globulin (S) [Mass/Vol] 4.1 g/dL Normal [facility] Comment on above: Performed By: #### C RP, CMP, LIPID #### [facility] [address] [place] [address] Dr. Jazmyn Saavedra Glucose [Mass/Vol] 92 mg/dL Normal 74-106 [facility] Comment on above: Performed By: #### C RP, CMP, LIPID #### [facility] [address] [place] [address] Dr. Jazmyn Saavedra Potassium [Moles/Vol] 4.2 mmol/L Normal 3.5-5.1 [facility] Comment on above: Performed By: #### C RP, CMP, LIPID #### [facility] [address] [place] [address] Dr. Jazmyn Saavedra Protein [Mass/Vol] 8.0 g/dL Normal 6.4-8.2 [facility] Comment on above: Performed By: #### C RP, CMP, LIPID #### [facility] [address] [place] [address] Dr. Jazmyn Saavedra Sodium [Moles/Vol] 139 mmol/L Normal 136-145 [facility] Comment on above: Performed By: #### C RP, CMP, LIPID #### [facility] [address] [place] [address] Dr. Jazmyn Saavedra Urea nitrogen [Mass/Vol] 20.0 mg/dL Critically high 7.0-18.0 [facility] Comment on above: Performed By: #### C RP, CMP, LIPID #### [facility] [address] [place] [address] Dr. Jazmyn Saavedra Urea nitrogen/Creatinin e [Mass ratio] 25.0 mg/mg Normal [facility] Comment on above: Performed By: #### C RP, CMP, LIPID #### [facility] [address] [address] [address] Jazmyn Saavedra SED RATE [facility] 2021 SED RATE 47 mm/hr Critically high <=30 [facility] Comment on above: Performed By: #### S EDR #### [facility] [address] [place] [address] Dr. Jazmyn Saavedra ASYMPTOMATIC COVID-19 ANTIGE Non 05-18-2022 EUA Statement SEE BELOW Normal [facility] Comment on above: Result Comment: This [...] sooner. Performed By: #### S EDR #### [facility] [address] [place] [address] Dr. Jazmyn Saavedra SARS-CoV-2 (COVID-19) RNA NILES+probe Ql (Unsp spec) Positive Critically abnormal NEGATIVE [facility] Comment on above: Result Comment: SARS -CoV-2 antigen present; does not rule out coinfection with other pathogens. Performed By: #### S EDR #### [facility] [address] [address] [address] Jazmyn Saavedra Covid-19 PCR (CVDTB)on SARS-CoV-2 (COVID-19) RNA NILES+probe Ql (Unsp spec) Detected Critically abnormal NOT DETECTED [facility] Comment on above: Result Comment: This test is not yet approved or cleared by the [place] FDA. When there are no FDA-approved or cleared tests available, and other criteria are met, FDA can make tests available under an emergency access mechanism called an Emergency Use Authorization (EUA). The EUA for this test is supported by the Board Attendant of Health and Human Service's declaration that [...] used). Performed By: #### C VDTB #### [facility] [address] [address] [address] Jazmyn BARLOW MULTI-CANCER PANELon 02-12-2021 RESULT Results to be mailed directly to physician's office by reference lab. Normal [facility] Comment on above: Result Comment: Test performed by [facility] [address] [place] [address] [phone] No result expected. For billing and tracking purposes only. Performed By: #### 3 1846 #### [address] Vital Signs Date Time Vital Sign Value Performing Clinician Facility 11-16-2023 11:39-0500 Body mass index (BMI) [Ratio] 24.96 kg/m2 Ahandyhand DO Work Phone: [facility] 11-16-2023 11:39-0500 Body weight 68.04 kg Ahandyhand DO Work Phone: [facility] 11-16-2023 11:39-0500 Diastolic blood pressure 72 mm[Hg] Easton Jassi DO Work Phone: [facility] 11-16-2023 11:39-0500 Systolic blood pressure 118 mm[Hg] Easton Jassi DO Work Phone: [facility] 03-03-2023 14:35-0400 Blood Pressure Location Joselo NILL [facility] [place] 03-03-2023 14:35-0400 Diastolic blood pressure 68 mm[Hg] Joselo NILL [facility] 03-03-2023 14:35-0400 Heart rate 68 /min Joselo NILL [facility] [place] 03-03-2023 14:35-0400 Respiratory rate 16 /min Joselo NILL [facility] [place] 03-03-2023 14:35-0400 Systolic blood pressure 114 mm[Hg] Joselo NILL General [facility] Encounters Encounter Date Encounter Type Care Provider Facility Start: 11-16-2023 End: 11-16-2023 ambulatory EASTON KEENE Not Available Start: 11-16-2023 End: 11-16-2023 Postop follow up visit related to original px Easton Jassi DO Work Phone: [facility] Comment on above: Encounter for repeat Pap smear due to previous insuff cervical cells Start: 10-28-2023 End: 10-28-2023 ambulatory FELIX WHITNEY Not Available Start: 09-29-2023 End: 09-29-2023 ambulatory FELIX WHITNEY Not Available Start: 08-19-2023 End: 08-19-2023 ambulatory TOMAS I [facility] Start: 06-03-2023 End: 06-03-2023 ambulatory CHRISTIANM I [facility] Start: 04-07-2023 End: 04-08-2023 ambulatory Joselo STARKS Facility[facility] Start: 04-07-2023 End: 04-07-2023 Patient encounter procedure Joselo TSARKS [facility] Start: 03-24-2023 End: 03-25-2023 ambulatory Joselo Llanes RAUDEL Facility:CD:[id number] Start: 03-03-2023 End: 03-04-2023 ambulatory Mariza Hoy Facility:[facility] Start: 03-03-2023 End: 03-03-2023 Patient encounter procedure Joselo Llanes RAUDEL General Surgery [facility] Start: 02-18-2023 ambulatory ASHLEIGH [facility] Start: 02-18-2023 ambulatory Mariza Hoy Facility:[facility] [place] Start: 02-12-2023 Encounter for genera l adult medical examination without abnormal findings MARIZA HOY [facility] Start: 02-12-2023 End: 02-13-2023 ambulatory MARIZA WRIGHT Facility:[facility] Start: 02-05-2023 End: 02-06-[address] DOCTOR KELLOGG Facility:[facility] Start: 02-05-2023 End: 02-06-2023 Encounter for general adult medical examination without abnormal findings MARIZA HOY Facility:[facility] Start: 02-04-2023 End: 02-05-[address] IDA SOTO Facility:[facility] Start: 01-28-2023 End: 01-28-[facility] Start: 09-23-2022 End: 09-23-[address] [...] TOMAS CLINTON Start: 03-24-2023 Colonoscopy Easton Keene [employer] Phone: Start: 03-24-2023 Colonoscopy Joselo STARKS [employer] Start: 03-24-2023 Esophagogastroduodenoscopy [email or web address] Start: 09-23-2022 Microscopic observation [Identifier] in Cervix by Cyto stain Easton Keene [employer] Phone: Start: 07-24-2015 Colonoscopy Joselo STARKS [employer] Start: 02-01-2007 Colonoscopy [email or web address] Bilateral mastectomy [facility]elo [email or web address] Biopsy of breast Joselo SCANLON [employer] section Joselo SCANLON [email or web address] Excision of cervical intervertebral disc Joselo [email or web address] Excision of lymph node Tony flori [facility] Comment on above: left inguinal Excision of salivary gland M marco [facility] Comment on above: x2 Granuloma (morpholog ic abnormality) Joselo [email or web address] Comment on above: x 2 History of radiofreq uency ablation operation for arrhythmia [email or web address] [email or web address] Total abdominal hyst erectomy with bilateral salpingo-oophorectomy Joselo [employer] Plan of Treatment Date Care Activity Detail Author Start: 03-24-2033 Screening for malign ant neoplasm of colon [facility] Start: 09-23-2027 Screening for malign ant neoplasm of cervix [facility] Start: 01-27-2025 Screening for malign ant neoplasm of colon FIT-DNA [facility] Start: 11-20-2024 End: 11-20-2024 Patient encounter procedure 11/20/2024 4:00 PM EST Office Visit [facility] [address] [place] [address] [place] [address] Easton Keene, DO [address] [place] [address] [place] [address] [facility] Start: 06-04-2023 Influenza vaccination Influenza Vacc ine (#1) [facility] Start: 2008 Screening for malign ant neoplasm of breast Mammogram [facility] Start: 1970 Screening for malign ant neoplasm of colon [facility] Immunizations Immunization Date Immunization Notes Care Provider Fa cility 08-07-2022 SARS-CoV-2 (COVID-19 ) mRNA-1273 vaccine Joselo NILL [facility] 01-01-2022 SARS-CoV-2 mRNA (fwontiyzmbg-wtoy-rnwqo se) vaccine Joselo NILL [facility] 06-18-2021 SARS-CoV-2 (COVID-19 ) mRNA-1273 vaccine Joselo NILL [facility] Comment on above: Result Comment: 2022: [id number] 10-30-2020 SARS-CoV-2 (COVID-19 ) mRNA-1273 vaccine Joselo SCANLONL [facility] 10-02-2020 SARS-CoV-2 (COVID-19 ) mRNA-1273 vaccine Joselo NILL [facility] Payers Date Payer Category Payer Unknown [id number] 2022 Unknown BCBS BCBS xxxxxx [id number] 2022-Present [phone] [address] [place] [address] [id number] 2019 Unknown [id number] 1970 Unknown [id number] [id number] 1970 Unknown [id number] 2.16.840.1.228886.3.579.2.593 1968 Unknown [id number] 2.16.840.1.593991.3.579.2.593 1968 Unknown [id number] 2.16.840.1.249659.3.579.2.593 1968 Unknown [id number] 2.16.840.1.782945.3.579.2.593 1968 Unknown [id number] 2.16.840.1.237535.3.579.2.593 1968 Unknown [id number] 2.16.840.1.002510.3.579.2.593 1968 Unknown [id number] 2.16.840.1.769642.3.579.2.593 1968 Unknown [id number] 2.16.840.1.425008.3.579.2.593 1968 Unknown [id number] 2.16.840.1.367426.3.579.2.727 1968 Unknown [id number] 2.16.840.1.879858.3.579.2.727 1968 Unknown [id number] 2.16.840.1.983526.3.579.2.727 1968 Unknown [id number] 2.16.840.1.847713.3.579.2.1259 1968 Unknown [id number] 2.16.840.1.717850.3.579.2.1259 1968 Unknown [id number] 2.16.840.1.948139.3.579.2.1259 1961 Self-pay [id number] Unknown [id number] 2.16.840.1.107559.3.579.2.593 Social History Date Type Detail Facility Start: 03-03-2023 End: 09-24-2023 Tobacco smoking status Never smoked tobacco (finding) [facility] [place] Tobacco smoking status Never [facility] Start: 09-24-2023 Sex Assigned At Female F [facility] Start: 10-28-2023 Alcohol intake Current drinke r [...] 03-03-2023 Functional Status N/A General [facility] [place] Clinical Notes 01-28-2023 to 11-16-2023 Easton Keene, [...] Easton Keene DO documented in this encounter [facility] 08-19-2023 Note Attestation signed by Tomas [...] seen with attending physician, Dr. Sun Josue [facility] Medical Student , MS3 There are no diagnoses linked to this encounter. No diagnosis found. No orders of the defined types were placed in this encounter. No results found for this or any previous visit (from the past 36 hour(s)). No follow-ups on file. [facility] 06-03-2023 Note Attestation signed by Tomas [...] past 36 hour(s)). No follow-ups on file. [facility] 03-03-2023 Note Chief Complaint consultation for [...] History of pericar (more content not included)... [facility] Comment on above: Result Comment: Elec tronically Signed By: RAUDEL PUENTES, Joselo Barrera\Date and Time Signed: 03/03/23 16:35 EDT 02-18-2023 Note Patient ID: Teetee Small is a 53 y.o. female. Primary oncologist: Dr Kat Hernandez Primary Care Provider: Mariza Wright MD Subjective Pt presents alone for annual follow up. 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 OncotypeDx score of 14-no systemic chemotherapy given. GENETIC TESTING, [employer] Multi-Cancer Panel: no pathogenic mutation identified. Diagnosis: 04/10/2013 Left breast biopsy - Invasive ductal CA, grade 1. DCIS, cribriform type. ER/OK + (>90%), HER-2/julio cesar-negative (ratio 1.2), T: 1c, N: 0, M: x, Oncotype DX score: 14 Treatment to date: Cancer surgery 05/17/2013 Left breast mastectomy with SLN biopsy - Invasive ductal CA, high grade, 1.1cm. 0/8 nodes positive. ER/OK + (4+), HER-2/julio cesar-negative (ratio 1.0). Margins [...] swelling, mass, skin change or tenderness. 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 [...] present. Mental Statu (more content not included)... [facility] 02-04-2023 Note PROCEDURE: XR SACROI LIAC JOINT 3 VIEWS COMPARISON: None. HISTORY: Rheumatoid factor positive rheumatoid arthritis FINDINGS: SACRUM: No fracture, disruption of the sacral ala line, or cortical irregularity. COCCYX: No fracture or suspicious alignment. SOFT TISSUES: No widening of the sacroiliac joints. No radiopaque foreign body. OTHER: IMPRESSION: No significant abnormality Electronically authenticated by: IDA SOTO Date: 2023-02-04 18:18 [facility] 02-04-2023 Note PROCEDURE: XR HIP [...] by: IDA SOTO Date: 2023-02-04 18:17 [facility] 02-04-2023 Note PROCEDURE: XR FOOT R T MIN 3 VIEWS COMPARISON: None. HISTORY: Rheumatoid factor positive rheumatoid arthritis FINDINGS: BONES:No acute fracture or dislocation. Mild enthesopathic spurring of the calcaneus at the Achilles insertion. SOFT TISSUES:Negative. No visible soft tissue swelling. EFFUSION:None visible. OTHER: Negative. IMPRESSION: Mild calcaneal Achilles enthesopathy Electronically authenticated by: IDA SOTO Date: 2023-02-04 18:16 [facility] 01-29-2023 Note TB negative from 02/05 PA submitted via CMMs. Saira Kramer PharmD, BCACP 02/26/23 2:43 PM [facility] [phone] [facility] 01-29-2023 Note LVM with pt to confi rm shipment from [facility]. F/U confirm shipment from [facility]. Goyo [facility] 03/26/2310:03 AM [facility] 01-29-2023 Note Called and spoke wit h the patient and she has not received medication yet, but the order has been placed from [facility]. We will F/U taco to make sure the medication was received. Melissa Arizmendi, [employer] 03/15/23 3:49 PM [facility] 01-29-2023 Note Supervising Physicia n & [...] Tai, PharmD, BCACP, CSP 01/29/23 8:50 AM [facility] [phone] [facility] 01-29-2023 Note Called pt, she will contact [facility] soon to discuss filling. F/U check rx/shipment status next week Goyo [facility] 231:12 PM [facility] 01-29-2023 Note Prior Authorization for [employer] has been approved 02/26/23-02/27/24. Case ID/Authorization Number:[id number] Must be filled at [facility], sending msg to MD for transfer. Calling pt to discuss filling at [facility]. LVM. F/U contact pt to discuss filling at [facility]. Goyo Winston [facility] 238:19 AM [facility] 01-29-2023 Note I called the patient to ensure that she has received his medication from [facility] and address any questions he may have, lvm. Kaleigh Rosas, [facility] 232:53 PM [facility] 01-29-2023 Note I called and spoke w ith the pt to confirm delivery and she has received medication with no follow up questions. 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 [facility] Evaluation + Plan note No data available for this section General Surgery Arvind Evaluation note Diagnosis Encounter for repeat Pap smear due to previous insuff cervical cells documented in this encounter [facility] No data available for this section General Surgery [place] Progress note No data available for this section General Surgery [place] Summary Purpose Family History No Family History Records FoundNo Family History Records FoundNo Family History Records FoundNo Family History Records FoundNo Family History Records Found Advance Directives No Advanced Directives Records FoundNo Advanced Directives Records FoundNo Advanced Directives Records FoundNo Advanced Directives Records FoundNo Advanced Directives Records Found Additional Source Comments INFORMATION SOURCE (unrecogn ized section and content) DATE CREATED AUTHOR 03/16/2021 [facility] DATE CREATED AUTHOR AUTHOR'S ORGANIZ ATION 02/15/2023 [facility] DATE CREATED AUTHOR AUTHOR'S ORGANIZ ATION 04/08/2023 [facility] DATE CREATED AUTHOR AUTHOR'S ORGANIZ ATION 08/21/2023 [facility] DATE CREATED AUTHOR AUTHOR'S ORGANIZ ATION 11/17/2023 [facility] EPIC Patient Care team informatio n (unrecognized section and content) 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 [employer] provides no warranty or guarantee of the accuracy or completeness of information in this document.
[2024-02-25 08:48] LABS: Basophils Percent Auto 0.6 % (0.2-2.0); Eosinophils Percent Auto 0.9 % (0.9-7.0); Hemoglobin 12.1 g/dL (12.0-16.0); Immature Granulocytes Abs Auto 0.01 10^3/uL (0.00-0.03); Immature Granulocytes Pct Auto 0.3 % (0.0-0.5); Lymphocytes Absolute Auto 0.8 10^3/uL (1.2-3.8); Lymphocytes Percent Auto 23.9 % (20.5-60.0); Mean Corpuscular HGB Conc 31.8 g/dL (29.9-35.2); Mean Corpuscular Hemoglobin 30.1 pg (26.7-34.0); Mean Corpuscular Volume 94.5 fL (81.0-99.0); Mean Platelet Volume 9.8 fL (9.5-13.5); Monocytes Absolute Auto 0.7 10^3/uL (0.3-0.8); Monocytes Percent Auto 20.6 % (1.7-12.0); Neutrophils Absolute Auto 1.8 10^3/uL (1.4-6.5); Neutrophils Percent Auto 53.7 % (43.0-75.0); Platelet Count 315 10^3/uL (150-450); Red Blood Count 4.02 10^6/uL (4.20-5.40); Red Cell Distribution Width 13.1 % (11.0-15.0); White Blood Count 3.3 10^3/uL (4.0-11.0)
[2024-02-25 08:58] LABS: Estimated Average Glucose 120 mg/dL; Glycohemoglobin A1C 5.8 % (4.5-6.2)
[2024-02-25 10:08] LABS: Alanine Aminotransferase 29 U/L (14-59); Albumin Globulin Ratio 0.8; Albumin Level 3.7 g/dL (3.4-5.0); Alkaline Phosphatase 68 U/L (46-116); Anion Gap 11.2; Aspartate Amino Transferase 23 U/L (15-37); BUN Creatinine Ratio 15.4; Bilirubin Total 0.5 mg/dL (0.2-1.0); Calcium 9.8 mg/dL (8.5-10.1); Carbon Dioxide 29.7 mmol/L (21.0-32.0); Chloride 103 mmol/L (98-107); Chol HDL Ratio 2.6; Cholesterol 265 mg/dL (<=200); Estimated GFR (African America >60 (>=60); Estimated GFR (Non-African Ame >60 (>=60); Globulin 4.6 g/dL; Glucose 93 mg/dL (74-106); HDL Cholesterol 103 mg/dL (40-60); Potassium 3.9 mmol/L (3.5-5.1); Sodium 140 mmol/L (136-145); Thyroid Stimulating Hormone 0.203 uIU/mL (0.358-3.740); Total Protein 8.3 g/dL (6.4-8.2); Triglycerides 70 mg/dL (<=150)
== END 2024-02-25 08:30 | disposition home or self-care (01) ==
LOC: LAB 08:30
PROVIDERS: PCP Family Medicine; Visit Provider Family Medicine
DX: Z00.00 Encounter for general adult medical examination without abnormal findings (principal)
CPT/HCPCS: 36415; 80053; 80061; 83036; 84443; 85025

== ENCOUNTER 2024-03-02 16:31 | Outpatient (OUT) | payer BC, SELFPAY ==
--- OUTSIDE RECORDS SUMMARY | 2024-03-02 16:43 | XMS_ITS | CCD ---
Author Organization [facility] Care Team Providers Care Melting Operator Name Role Phone HOY, MARIZA Consulting Unavailable [...] Unavailable Mariza Wright MD Primary Care Provider [phone] FELIX WHITNEY Attending Unavailable FELIX WHITNEY Attending Unavailable EASTON KEENE Attending Unavailable Allergies Allergy Classification Reported Allergen(s) Allergy Type Date of Onset Reaction(s) Facility (2 sources) Benzoyl Peroxide; Translations: [BENZOYL PEROXIDE] Drug Allergy 07-22-20 15 [facility] Repository (1 source) Desonide Drug Allergy 04-05-20 13 [facility] Repository (1 source) Sulfonamides (Antibiotic) Drug allergy (disorder) 04-05-20 13 [facility] Repository (1 source) Misc-Other; Translations: [Misc-Other] Propensity to adverse reactions (disorder) 07-22-20 15 [facility] Repository (3 sources) Sulfonamides (Antibiotic); Translations: [sulfa drugs] Drug allergy Discoloration of skin (finding) General Surgery [place] (1 source) Adhesive agent; Translations: [ADHESIVE] Propensity to adverse reactions to drug (disorder) 09-21-20 14 [facility] Repository (2 sources) Sulfamethoxazole / Trimethoprim; Translations: [SULFAMETHOXAZOLE-T RIMETHOPRIM] Drug Allergy 02-02-20 23 Rash [facility] Repository (1 source) Sulfonamides (Antibiotic); Translations: [SULFA (SULFONAMIDE ANTIBIOTICS)] Propensity to adverse reactions to drug (disorder) 09-21-20 14 [facility] Repository (1 source) ADHESIVE TAPE-SILICONES; Translations: [ADHESIVE TAPE-SILICONES] Propensity to adverse reactions to drug (disorder) 10-07-19 22 [facility] Repository (1 source) Benzoyl Peroxide Drug [...] 09-30-2022 Episodic Other aftercare (6 sources) Other prison (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; Translations: [[facility] CUR[facility]ERAPY] Onset: 08-25-2022 Episodic Other [...] Interpretation Reference Range Facility Follow-Upon 08-19-2023 Follow-Up [id number] Yamileth Small 1970 F Date Provider Department [place] 08/19/2023 TOMAS ROBERTO I [facility] No family history on file Level of Service:89498 SC OFFICE/OUTPATIENT ESTABLISHED MOD MDM 30-39 MIN Reason for Visit and Comments: Follow-up [680681] - Follow up [facility] Orders Onlyon 08-12-2023 Orders Only [id number] Yamileth Small 1970 F Date Provider Department [place] 08/12/2023 [id number], HISTORICAL [facility] No family history on file [facility] 36on 08-10-2023 36 Left detailed messag e that labs were placed. Normal [facility] Orders Onlyon 08-10-2023 Orders Only [id number] Yamileth Small 1970 F Date Provider Department [place] 08/10/2023 TOMAS ROBERTO I [facility] No family history on file [facility] 36on 08-05-2023 36 Patient has an apt o n and is wondering if there are any labs she needs to do prior to her visit. Please advise. Thanks! [facility] 36 Patient called [facility] Follow-Upon 06-03-2023 Follow-Up [id number] Yamileth Small 1970 F Date Provider Department Center 06/03/2023 215-TOMAS CLINTON I [facility] No family history on file Level of Service:87095 SC OFFICE/OUTPATIENT ESTABLISHED MOD MDM 30-39 MIN () Reason for Visit and Comments: Follow-up [237778] - Follow up [facility] 36on 04-08-2023 36 Last visit pt instru cted to finish current supply and then stop [facility] Ambulatory Visit Summaryon 0 04-07-2023 Ambulatory Visit [...] lupus erythematosus Varicose veins of legs Normal [facility] General Surgery Office/Clini c Noteon 04-07-2023 [...] SARS-CoV-2 (COVID-19) mRNA-1273 vaccine 08/07/2022 Recorded SARSCoV2 mRNA(gvcygsnht-ebnx-vpmqwl) vac 01/01/2022 Recorded SARS-CoV-2 (COVID-19) mRNA-1273 vaccine [...] Patient due for screening colonoscopy 03/24/2033. Normal [facility] Pathology Noteon 03-29-2023 Pathology Note [id number]#1.00CD:[address] [facility] Outside Colonoscopyon 2022 Outside Colonoscopy [id number]#1.00CD:[address] [facility] Pre-Certification Formon Pre-Certification Form [id number]#1.00CD:127 [facility] Consent for Procedure/Surger yon 03-05-2023 Consent for Procedure/Surgery [id number]#1.00CD:127 [facility] Facesheeton 03-04-2023 Facesheet [id number]#1.00CD:[address] [facility] Ambulatory Visit Summaryon 0 03-03-2023 Ambulatory [...] lupus erythematosus Varicose veins of legs Normal [facility] RAD - CT Reporton 03-03-2023 RAD - CT Report [id number]#1.00CD:[address] [facility] Orders Onlyon 03-02-2023 Orders Only [id number] Yamileth Small 1970 F Date Provider Department Center 03/02/2023 Mary Alice-EYAL ALEGRIA [facility] No family history on file Normal [facility] Physician Referralon 023 Physician Referral [id number]#1.00CD:[address] [facility] CT ABD/PELV W CONon 02-13-20 23 [...] by: IDA SOTO Date: 2023-02-12 09:54 Normal [facility] Orders Onlyon 02-08-2023 Orders Only [id number] Yamileth Small 1970 F Date Provider Department Center 02/08/2023 [id number], HISTORICAL [facility] No family history on file Normal [facility] QUANTIFERON TB GOLD PLUSon 0 02-07-2023 QuantiFERON Criteria Comment Normal [facility] Comment on above: Result Comment: Rehan [...] test. Performed By: #### Q NTTB #### [facility] [address] [place] [address] Dr. Jazmyn Saavedra QuantiFERON Incubation Incubation performed. Normal [facility] Comment on above: Performed By: #### Q NTTB #### [facility] [address] [place] [address] Dr. Jazmyn Saavedra QuantiFERON Mitogen Value 6.87 IU/mL Normal [facility] Comment on above: Performed By: #### Q NTTB #### [facility] [address] [place] [address] Dr. Jazmyn Saavedra QuantiFERON Nil Value 0.00 IU/mL Normal [facility] Comment on above: Performed By: #### Q NTTB #### [facility] [address] [place] [address] Dr. Jazmyn Saavedra QuantiFERON TB1 Ag Value 0.00 IU/mL Normal [facility] Comment on above: Performed By: #### Q NTTB #### [facility] [address] [place] [address] Dr. Jazmyn Saavedra QuantiFERON TB2 Ag Value 0.00 IU/mL [facility] Comment on above: Performed By: #### Q NTTB #### [facility] [address] [place] [address] Dr. Jazmyn Saavedra QuantiFERON-TB Gold Plus Negative Normal Negative [facility] Comment on above: Result Comment: No r esponse to M tuberculosis antigens detected. Infection with M tuberculosis is unlikely, but high risk individuals should be considered for additional testing (ATS/IDSA/CDC Clinical Practice Guidelines, 2017). The reference range is an Antigen minus Nil result of <0.35 IU/mL. Chemiluminescence immunoassay methodology Performed By: #### Q NTTB #### [facility] [address] [place] [address] Dr. Jazmyn Saavedra HEP B COREon 02-06-2023 Hep B Core Ab, Tot Negative Normal Negative [facility] Comment on above: Performed By: #### S EDR #### [facility] [address] [place] [address] Dr. Jazmyn Saavedra HEP B SURFACE ANTIGEN SCREEN on 02-06-2023 HBsAg Screen Negative Normal Negative [facility] Comment on above: Performed By: #### H BSANS #### [facility] [address] [place] [address] Dr. Jazmyn Saavedra CBC AUTO DIFFon 02-05-2023 BASO # 0.0 103/ul Normal 0.0-0.1 [facility] Comment on above: Performed By: #### C BC #### [facility] [address] [place] [address] Dr. Jazmyn Saavedra Basophils/100 WBC (Bld) 0.5 % Normal 0.2-2.0 [facility] Comment on above: Performed By: #### C BC #### [facility] [address] [place] [address] Dr. Jazmyn Saavedra EO # 0.0 103/ul Normal 0.0-0.7 [facility] Comment on above: Performed By: #### C BC #### [facility] [address] [place] [address] Dr. Jazmyn Saavedra Eosinophils/100 WBC (Bld) 0.8 % Critically low 0.9-7.0 [facility] Comment on above: Performed By: #### C BC #### [facility] [address] [place] [address] Dr. Jazmyn Saavedra Erythrocyte distribution width (RBC) [Ratio] 13.2 % Normal 11.0-15.0 [facility] Comment on above: Performed By: #### C BC #### [facility] [address] [place] [address] Dr. Jazmyn Saavedra Hematocrit (Bld) [Volume fraction] 41.1 % Normal 36.0-48.0 [facility] Comment on above: Performed By: #### C BC #### [facility] [address] [place] [address] Dr. Jazmyn Saavedra Hemoglobin (Bld) [Mass/Vol] 13.4 g/dL Normal 12.0-16.0 [facility] Comment on above: Performed By: #### C BC #### [facility] [address] [place] [address] Dr. Jazmyn Saavedra IG # 0.01 10e3/ul Normal 0.00-0.03 [facility] Comment on above: Performed By: #### C BC #### [facility] [address] [place] [address] Dr. Jazmyn Saavedra IG % 0.3 % Normal 0.0-0.5 [facility] Comment on above: Performed By: #### C BC #### [facility] [address] [place] [address] Dr. Jazmyn Saavedra LYMPH # 1.2 103/ul Normal 1.2-3.8 [facility] Comment on above: Performed By: #### C BC #### [facility] [address] [place] [address] Dr. Jazmyn Saavedra Lymphocytes/100 WBC (Bld) 31.9 % Normal 20.5-60.0 [facility] Comment on above: Performed By: #### C BC #### [facility] [address] [place] [address] Dr. Jazmyn Saavedra MANUAL DIFF REQ NO Normal [facility] Comment on above: Performed By: #### C BC #### [facility] [address] [place] [address] Dr. Jazmyn Saavedra MCH (RBC) [Entitic mass] 30.6 pg Normal 26.7-34.0 [facility] Comment on above: Performed By: #### C BC #### [facility] [address] [place] [address] Dr. Jazmyn Saavedra MCHC (RBC) [Mass/Vol] 32.6 g/dL Normal 29.9-35.2 [facility] Comment on above: Performed By: #### C BC #### [facility] [address] [place] [address] Dr. Jazmyn Saavedra MCV (RBC) [Entitic vol] 93.8 fL Normal 81.0-99.0 [facility] Comment on above: Performed By: #### C BC #### [facility] [address] [place] [address] Dr. Jazmyn Saavedra MONO # 0.5 103/ul Normal 0.3-0.8 [facility] Comment on above: Performed By: #### C BC #### [facility] [address] [place] [address] Dr. Jazmyn Saavedra Monocytes/100 WBC (Bld) 14.1 % Critically high 1.7-12.0 [facility] Comment on above: Performed By: #### C BC #### [facility] [address] [place] [address] Dr. Jazmyn Saavedra NEUT # 1.9 103/ul Normal 1.4-6.5 [facility] Comment on above: Performed By: #### C BC #### [facility] [address] [place] [address] Dr. Jazmyn Saavedra Neutrophils/100 WBC (Bld) 52.4 % Normal 43.0-75.0 [facility] Comment on above: Performed By: #### C BC #### [facility] [address] [place] [address] Dr. Jazmyn Saavedra Platelet mean volume (Bld) [Entitic vol] 9.4 fL Critically low 9.5-13.5 [facility] Comment on above: Performed By: #### C BC #### [facility] [address] [place] [address] Dr. Jazmyn Saavedra PLT 342 103/ul Normal 150-450 [facility] Comment on above: Performed By: #### C BC #### [facility] [address] [place] [address] Dr. Jazmyn Saavedra RBC 4.38 106/ul Normal 4.20-5.40 [facility] Comment on above: Performed By: #### C BC #### [facility] [address] [place] [address] Dr. Jazmyn Saavedra WBC 3.7 103/ul Critically low 4.0-11.0 [facility] Comment on above: Performed By: #### C BC #### [facility] [address] [place] [address] Dr. Jazmyn Saavedra FREE THYROXINE INDEX T7on FTI 3.20 Normal 1.30-4.50 [facility] Comment on above: Performed By: #### S EDR #### [facility] [address] [address] [address] Jazmyn Saavedra T3U 36.0 % Normal 30.0-39.0 [facility] Comment on above: Performed By: #### S EDR #### [facility] [address] [address] [address] Jazmyn Saavedra T4 [Mass/Vol] 8.90 ug/dL Normal 4.80-13.90 [facility] Comment on above: Performed By: #### S EDR #### [facility] [address] [place] [address] Dr. Jazmyn Saavedra GLYCOHEMOGLOBIN A1Con 2022 ADA RECOMMENDATION SEE BELOW Normal [facility] Comment on above: Result Comment: ADA RECOMMENDED LIMIT 4.0 - 6.0 ADA THERAPEUTIC TARGET < 7.0 ACTION SUGGESTED > 7.0 Performed By: #### S EDR #### [facility] [address] [place] [address] Dr. Jazmyn Saavedra Glucose [Mass/Vol] 123 mg/dL Normal [facility] Comment on above: Performed By: #### S EDR #### [facility] [address] [place] [address] Dr. Jazmyn Saavedra HbA1c (Bld) [Mass fraction] 5.9 % Normal 4.5-6.2 [facility] Comment on above: Performed By: #### S EDR #### [facility] [address] [place] [address] Dr. Jazmyn Saavedra LIPID PROFILEon 02-05-2023 CHOL-HDL RATIO NORM SEE BELOW Normal [facility] Comment on above: Result Comment: 3.3 - 4.4 LOW RISK 4.4 - 7.1 AVERAGE RISK 7.1 - 11.0 MODERATE RISK >11.0 HIGH RISK Performed By: #### S EDR #### [facility] [address] [place] [address] Dr. Jazmyn Saavedra Cholesterol [Mass/Vol] 256 mg/dL Critically high <=200 [facility] Comment on above: Performed By: #### S EDR #### [facility] [address] [address] [address] Jazmyn Saavedra Cholesterol in HDL [Mass/Vol] 108 mg/dL Critically high 40-60 [facility] Comment on above: Performed By: #### S EDR #### [facility] [address] [address] [address] Jazmyn Saavedra Cholesterol in LDL [Mass/Vol] 139.4 mg/dL Normal [facility] Comment on above: Performed By: #### S EDR #### [facility] [address] [address] [address] Jazmyn Saavedra Cholesterol.total/ Cholesterol in HDL [Mass ratio] 2.4 {ratio} Normal [facility] Comment on above: Performed By: #### S EDR #### [facility] [address] [address] [address] Jazmyn Saavedra HDL NORMAL > or = 60 mg/dl - LO W CARDIOVASCULAR RISK <40 mg/dl - HIGH CARDIOVASCULAR RISK Normal [facility] Comment on above: Performed By: #### S EDR #### [facility] [address] [address] [address] Jazmyn Saavedra LDL CALC NORMAL SEE BELOW Normal [facility] Comment on above: Result Comment: <100 mg/dl OPTIMAL 100 - 129 mg/dl NEAR OR ABOVE OPTIMAL 130 - 159 mg/dl BORDERLINE HIGH 160 - 189 mg/dl HIGH >190 mg/dl VERY HIGH Performed By: #### S EDR #### [facility] [address] [address] [address] Jazmyn Saavedra Triglyceride [Mass/Vol] 43 mg/dL Normal <=150 [facility] Comment on above: Performed By: #### S EDR #### [facility] [address] [place] [address] Dr. Jazmyn Saavedra VLDL CALC 8.6 mg/dL Normal [facility] Comment on above: Performed By: #### S EDR #### [facility] [address] [address] [address] Jazmyn Saavedra Orders Onlyon 02-05-2023 Orders Only [id number] Yamileth Small 1970 F Date Provider Department Center 02/05/2023 [id number], HISTORICAL [facility] No family history on file Normal [facility] PROF 14(COMP METB)on 023 Albumin [Mass/Vol] 4.0 g/dL Normal 3.4-5.0 [facility] Comment on above: Performed By: #### T 7, CMP, LIPID, TSH #### [facility] [address] [address] [address] Jazmyn Saavedra Albumin/Globulin [Mass ratio] 0.9 {ratio} Normal [facility] Comment on above: Performed By: #### T 7, CMP, LIPID, TSH #### [facility] [address] [address] [address] Jazmyn Saavedra ALP [Catalytic activity/Vol] 57 U/L Normal 46-116 [facility] Comment on above: Performed By: #### T 7, CMP, LIPID, TSH #### [facility] [address] [address] [address] Jazmyn Saavedra ALT [Catalytic activity/Vol] 23 U/L Normal 14-59 [facility] Comment on above: Performed By: #### T 7, CMP, LIPID, TSH #### [facility] [address] [address] [address] Jazmyn Saavedra Anion gap [Moles/Vol] 13.8 mmol/L Normal [facility] Comment on above: Performed By: #### T 7, CMP, LIPID, TSH #### [facility] [address] [address] [address] Jazmyn Saavedra AST [Catalytic activity/Vol] 23 U/L Normal 15-37 [facility] Comment on above: Performed By: #### T 7, CMP, LIPID, TSH #### [facility] [address] [address] [address] Jazmyn Saavedra Bilirubin [Mass/Vol] 0.6 mg/dL Normal 0.2-1.0 [facility] Comment on above: Performed By: #### T 7, CMP, LIPID, TSH #### [facility] [address] [address] [address] aJzmyn Saavedra Calcium [Mass/Vol] 9.6 mg/dL Normal 8.5-10.1 [facility] Comment on above: Performed By: #### T 7, CMP, LIPID, TSH #### [facility] [address] [place] [address] Dr. Jazmyn Saavedra Chloride [Moles/Vol] 100 mmol/L Normal 98-107 [facility] Comment on above: Performed By: #### T 7, CMP, LIPID, TSH #### [facility] [address] [place] [address] Dr. Jazmyn Saavedra CO2 [Moles/Vol] 29.9 mmol/L Normal 21.0-32.0 [facility] Comment on above: Performed By: #### T 7, CMP, LIPID, TSH #### [facility] [address] [place] [address] Dr. Jazmyn Saavedra Creatinine [Mass/Vol] 0.89 mg/dL Normal 0.55-1.02 [facility] Comment on above: Performed By: #### T 7, CMP, LIPID, TSH #### [facility] [address] [place] [address] Dr. Jazmyn Saavedra EGFR-AF CONGOLESE >60 Normal >=60 [facility] Comment on above: Performed By: #### T 7, CMP, LIPID, TSH #### [facility] [address] [place] [address] Dr. Jazmyn Saavedra EGFR-NON AF CONGOLESE >60 Normal >=60 [facility] Comment on above: Performed By: #### T 7, CMP, LIPID, TSH #### [facility] [address] [place] [address] Dr. Jazmyn Saavedra Globulin (S) [Mass/Vol] 4.4 g/dL Normal [facility] Comment on above: Performed By: #### T 7, CMP, LIPID, TSH #### [facility] [address] [place] [address] Dr. Jazmyn Saavedra Glucose [Mass/Vol] 89 mg/dL Normal 74-106 [facility] Comment on above: Performed By: #### T 7, CMP, LIPID, TSH #### [facility] [address] [place] [address] Dr. Jazmyn Saavedra Potassium [Moles/Vol] 3.7 mmol/L Normal 3.5-5.1 [facility] Comment on above: Performed By: #### T 7, CMP, LIPID, TSH #### [facility] [address] [place] [address] Dr. Jazmyn Saavedra Protein [Mass/Vol] 8.4 g/dL Critically high 6.4-8.2 [facility] Comment on above: Performed By: #### T 7, CMP, LIPID, TSH #### [facility] [address] [place] [address] Dr. Jazmyn Saavedra Sodium [Moles/Vol] 140 mmol/L Normal 136-145 [facility] Comment on above: Performed By: #### T 7, CMP, LIPID, TSH #### [facility] [address] [place] [address] Dr. Jazmyn Saavedra Urea nitrogen [Mass/Vol] 17.0 mg/dL Normal 7.0-18.0 [facility] Comment on above: Performed By: #### T 7, CMP, LIPID, TSH #### [facility] [address] [place] [address] Dr. Jazmyn Saavedra Urea nitrogen/Creatinin e [Mass ratio] 19.1 mg/mg Normal [facility] Comment on above: Performed By: #### T 7, CMP, LIPID, TSH #### [facility] [address] [place] [address] Dr. Jazmyn Saavedra TSHon 02-05-2023 TSH 0.984 uIU/mL Normal 0.358-3.740 [facility] Comment on above: Performed By: #### S EDR #### [facility] [address] [place] [address] Dr. Jazmyn Saavedra Documentationon 01-29-2023 Documentation [id number] Yamileth Small 1970 F Date Provider Department Center 01/29/2023 EDUARD ALEXANDRE THOMAS [facility] R[facility]UM Yamil Heal No family history on file Reason for Visit and Comments: Specialty Pharmacy Note: [facility] Prescription [Other] [facility] Follow-Upon 01-28-2023 Follow-Up [id number] Yamileth Small 1970 F Date Provider Department Center 01/28/2023 Mary Alice-EYAL ALEGRIA [facility] No family history on file Level of Service:79349 SC OFFICE/OUTPATIENT ESTABLISHED MOD MDM 30-39 MIN (GC) [facility] PAP ACOG PANEL 2: 30 to 65on 10-07-2022 . . Normal [facility] Comment on above: Result Comment: Perf ormed at: [facility] Performed By: #### S EDR #### [facility] [address] [address] [address] Jazmyn Saavedra Age Gdln ACOG Testing 30-65 Normal [facility] Comment on above: Performed By: #### S EDR #### [facility] [address] [address] [address] Jazmyn Saavedra DIAGNOSIS: Comment Normal [facility] Comment on above: Result Comment: NEGA TIVE FOR INTRAEPITHELIAL LESION OR MALIGNANCY. Performed at: [facility] Performed By: #### S EDR #### [facility] [address] [address] [address] Jazmyn Saavedra HPV Aptima Negative Normal Negative [facility] Comment on above: Result Comment: This nucleic acid amplification test detects fourteen high-risk HPV types (16,18,31,33,35,39,45,51,52,56,58,59,66,68) without differentiation. Performed at: =G Performed By: #### S EDR #### [facility] [address] [address] [address] Jazmyn Saavedra HPV Genotype Reflex Comment Normal [facility] Comment on above: Result Comment: Crit eria not met, HPV Genotype not performed. Performed at: [facility] Performed By: #### S EDR #### [facility] [address] [place] [address] Dr. Jazmyn Saavedra Methodology: Comment Normal [facility] Comment on above: Result Comment: This liquid based ThinPrep(R) pap test was screened with the use of an image guided system. Performed at: [facility] Performed By: #### S EDR #### [facility] [address] [place] [address] Dr. Jazmyn Saavedra Note: Comment Normal [facility] Comment on above: Result Comment: The [...] WB Performed By: #### S EDR #### [facility] [address] [place] [address] Dr. Jazmyn Saavedra Performed by: Comment Normal [facility] Comment on above: Result Comment: Daryl Calhoun, Label Printer (ASCP) Performed at: [facility] Performed By: #### S EDR #### [facility] [address] [place] [address] Dr. Jazmyn Saavedra Specimen adequacy: Comment Normal [facility] Comment on above: Result Comment: Sati sfactory for evaluation. Endocervical component may not be distinguished in cases of atrophy. Performed at: [facility] Performed By: #### S EDR #### [facility] [address] [place] [address] Dr. Jazmyn Saavedra Orders Onlyon 08-31-2022 Orders Only [id number] Yamileth Small 1970 F Date Provider Department Center 08/31/2022 [id number], HISTORICAL [facility] No family history on file Normal [facility] XR DEXA BONE DENSITYon 08-28 XR [...] GILBERT GEORGE Date: 2022-08-28 08:47 Normal [facility] CBC AUTO DIFFon 08-25-2022 BASO # 0.0 103/ul Normal 0.0-0.1 [facility] Comment on above: Performed By: #### S EDR #### [facility] [address] [address] [address] Jazmyn Saavedra Basophils/100 WBC (Bld) 0.5 % Normal 0.2-2.0 [facility] Comment on above: Performed By: #### S EDR #### [facility] [address] [address] [address] Jazmyn Saavedra EO # 0.1 103/ul Normal 0.0-0.7 [facility] Comment on above: Performed By: #### S EDR #### [facility] [address] [address] [address] Jazmyn Saavedra Eosinophils/100 WBC (Bld) 1.2 % Normal 0.9-7.0 [facility] Comment on above: Performed By: #### S EDR #### [facility] [address] [address] [address] Jazmyn Saavedra Erythrocyte distribution width (RBC) [Ratio] 13.2 % Normal 11.0-15.0 [facility] Comment on above: Performed By: #### S EDR #### [facility] [address] [address] [address] Jazmyn Saavedra Hematocrit (Bld) [Volume fraction] 38.4 % Normal 36.0-48.0 [facility] Comment on above: Performed By: #### S EDR #### [facility] [address] [address] [address] Jazmyn Saavedra Hemoglobin (Bld) [Mass/Vol] 12.6 g/dL Normal 12.0-16.0 [facility] Comment on above: Performed By: #### S EDR #### [facility] [address] [address] [address] Jazmyn Saavedra IG # 0.01 10e3/ul Normal 0.00-0.03 [facility] Comment on above: Performed By: #### S EDR #### [facility] [address] [address] [address] Jazmyn Saavedra IG % 0.2 % Normal 0.0-0.5 [facility] Comment on above: Performed By: #### S EDR #### [facility] [address] [place] [address] Dr. Jazmyn Saavedra LYMPH # 1.7 103/ul Normal 1.2-3.8 [facility] Comment on above: Performed By: #### S EDR #### [facility] [address] [place] [address] Dr. Jazmyn Saavedra Lymphocytes/100 WBC (Bld) 40.8 % Normal 20.5-60.0 [facility] Comment on above: Performed By: #### S EDR #### [facility] [address] [place] [address] Dr. Jazmyn Saavedra MANUAL DIFF REQ NO Normal The [facility] Comment on above: Performed By: #### S EDR #### [facility] [address] [address] [address] Jazmyn Saavedra MCH (RBC) [Entitic mass] 31.0 pg Normal 26.7-34.0 [facility] Comment on above: Performed By: #### S EDR #### [facility] [address] [address] [address] Jazmyn Saavedra MCHC (RBC) [Mass/Vol] 32.8 g/dL Normal 29.9-35.2 [facility] Comment on above: Performed By: #### S EDR #### [facility] [address] [address] [address] Jazmyn Saavedra MCV (RBC) [Entitic vol] 94.3 fL Normal 81.0-99.0 [facility] Comment on above: Performed By: #### S EDR #### [facility] [address] [address] [address] Jazmyn Saavedra MONO # 0.5 103/ul Normal 0.3-0.8 [facility] Comment on above: Performed By: #### S EDR #### [facility] [address] [address] [address] Jazmyn Saavedra Monocytes/100 WBC (Bld) 11.9 % Normal 1.7-12.0 [facility] Comment on above: Performed By: #### S EDR #### [facility] [address] [place] [address] Dr. Jazmyn Saavedra NEUT # 1.9 103/ul Normal 1.4-6.5 [facility] Comment on above: Performed By: #### S EDR #### [facility] [address] [place] [address] Dr. Jazmyn Saavedra Neutrophils/100 WBC (Bld) 45.4 % Normal 43.0-75.0 [facility] Comment on above: Performed By: #### S EDR #### [facility] [address] [place] [address] Dr. Jazmyn Saavedra Platelet mean volume (Bld) [Entitic vol] 9.3 fL Critically low 9.5-13.5 [facility] Comment on above: Performed By: #### S EDR #### [facility] [address] [address] [address] Jazmyn Saavedra PLT 309 103/ul Normal 150-450 [facility] Comment on above: Performed By: #### S EDR #### [facility] [address] [place] [address] Dr. Jazmyn Saavedra RBC 4.07 106/ul Critically low 4.20-5.40 [facility] Comment on above: Performed By: #### S EDR #### [facility] [address] [address] [address] Jazmyn Saavedra WBC 4.2 103/ul Normal 4.0-11.0 [facility] Comment on above: Performed By: #### S EDR #### [facility] [address] [place] [address] Dr. Jazmyn Saavedra CRPon 08-25-2022 CRP [Mass/Vol] mg/L Normal <=1.0 The [facility] Comment on above: Performed By: #### C RP, CMP, LIPID #### [facility] [address] [place] [address] Dr. Jazmyn Saavedra LIPID PROFILEon 08-25-2022 CHOL-HDL RATIO NORM SEE BELOW Normal [facility] Comment on above: Result Comment: 3.3 - 4.4 LOW RISK 4.4 - 7.1 AVERAGE RISK 7.1 - 11.0 MODERATE RISK >11.0 HIGH RISK Performed By: #### C RP, CMP, LIPID #### [facility] [address] [place] [address] Dr. Jazmyn Saavedra Cholesterol [Mass/Vol] 251 mg/dL Critically high <=200 [facility] Comment on above: Performed By: #### C RP, CMP, LIPID #### [facility] [address] [place] [address] Dr. Jazmyn Saavedra Cholesterol in HDL [Mass/Vol] 102 mg/dL Critically high 40-60 [facility] Comment on above: Performed By: #### C RP, CMP, LIPID #### [facility] [address] [place] [address] Dr. Jazmyn Saavedra Cholesterol in LDL [Mass/Vol] 135.0 mg/dL Normal [facility] Comment on above: Performed By: #### C RP, CMP, LIPID #### [facility] [address] [place] [address] Dr. Jazmyn Saavedra Cholesterol.total/ Cholesterol in HDL [Mass ratio] 2.5 {ratio} Normal [facility] Comment on above: Performed By: #### C RP, CMP, LIPID #### [facility] [address] [place] [address] Dr. Jazmyn Saavedra HDL NORMAL > or = 60 mg/dl - LO W CARDIOVASCULAR RISK <40 mg/dl - HIGH CARDIOVASCULAR RISK Normal [facility] Comment on above: Performed By: #### C RP, CMP, LIPID #### [facility] [address] [place], [place] [address] Dr. Jazmyn Saavedra LDL CALC NORMAL SEE BELOW Normal [facility] Comment on above: Result Comment: <100 mg/dl OPTIMAL 100 - 129 mg/dl NEAR OR ABOVE OPTIMAL 130 - 159 mg/dl BORDERLINE HIGH 160 - 189 mg/dl HIGH >190 mg/dl VERY HIGH Performed By: #### C RP, CMP, LIPID #### [facility] [address] [place], [place] [address] Dr. Jazmyn Saavedra Triglyceride [Mass/Vol] 70 mg/dL Normal <=150 [facility] Comment on above: Performed By: #### C RP, CMP, LIPID #### [facility] [address] [place], [place] [address] Dr. Jazmyn Saavedra VLDL CALC 14.0 mg/dL Normal [facility] Comment on above: Performed By: #### C RP, CMP, LIPID #### [facility] [address] [place], [place] [address] Dr. Jazmyn Saavedra Orders Onlyon 08-25-2022 Orders Only [id number] Yamileth Small 1970 F Date Provider Department Center 08/25/2022 [id number], HISTORICAL [facility] No family history on file Normal [facility] PROF 14(COMP METB)on 022 Albumin [Mass/Vol] 3.9 g/dL Normal 3.4-5.0 [facility] Comment on above: Performed By: #### C RP, CMP, LIPID #### [facility] [address] [place], [place] [address] Dr. Jazmyn Saavedra Albumin/Globulin [Mass ratio] 1.0 {ratio} Normal [facility] Comment on above: Performed By: #### C RP, CMP, LIPID #### [facility] [address] [place], [place] [address] Dr. Jazmyn Saavedra ALP [Catalytic activity/Vol] 49 U/L Normal 46-116 [facility] Comment on above: Performed By: #### C RP, CMP, LIPID #### [facility] [address] [address] [address] Jazmyn Saavedra ALT [Catalytic activity/Vol] 17 U/L Normal 14-59 [facility] Comment on above: Performed By: #### C RP, CMP, LIPID #### [facility] [address] [address] [address] Jazmyn Saavedra Anion gap [Moles/Vol] 10.1 mmol/L Normal [facility] Comment on above: Performed By: #### C RP, CMP, LIPID #### [facility] [address] [place] [address] Dr. Jazmyn Saavedra AST [Catalytic activity/Vol] 19 U/L Normal 15-37 [facility] Comment on above: Performed By: #### C RP, CMP, LIPID #### [facility] [address] [place] [address] Dr. Jazmyn Saavedra Bilirubin [Mass/Vol] 0.5 mg/dL Normal 0.2-1.0 [facility] Comment on above: Performed By: #### C RP, CMP, LIPID #### [facility] [address] [place] [address] Dr. Jazmyn Saavedra Calcium [Mass/Vol] 9.3 mg/dL Normal 8.5-10.1 [facility] Comment on above: Performed By: #### C RP, CMP, LIPID #### [facility] [address] [place] [address] Dr. Jazmyn Saavedra Chloride [Moles/Vol] 103 mmol/L Normal 98-107 [facility] Comment on above: Performed By: #### C RP, CMP, LIPID #### [facility] [address] [place] [address] Dr. Jazmyn Saavedra CO2 [Moles/Vol] 30.1 mmol/L Normal 21.0-32.0 [facility] Comment on above: Performed By: #### C RP, CMP, LIPID #### [facility] [address] [place] [address] Dr. Jazmyn Saavedra Creatinine [Mass/Vol] 0.80 mg/dL Normal 0.55-1.02 [facility] Comment on above: Performed By: #### C RP, CMP, LIPID #### [facility] [address] [address] [address] Jazmyn Saavedra EGFR-AF CONGOLESE >60 Normal >=60 [facility] Comment on above: Performed By: #### C RP, CMP, LIPID #### [facility] [address] [address] [address] Jazmyn Saavedra EGFR-NON AF CONGOLESE >60 Normal >=60 [facility] Comment on above: Performed By: #### C RP, CMP, LIPID #### [facility] [address] [place] [address] Dr. Jazmyn Saavedra Globulin (S) [Mass/Vol] 4.1 g/dL Normal [facility] Comment on above: Performed By: #### C RP, CMP, LIPID #### [facility] [address] [place] [address] Dr. Jazmyn Saavedra Glucose [Mass/Vol] 92 mg/dL Normal 74-106 [facility] Comment on above: Performed By: #### C RP, CMP, LIPID #### [facility] [address] [place] [address] Dr. Jazmyn Saavedra Potassium [Moles/Vol] 4.2 mmol/L Normal 3.5-5.1 [facility] Comment on above: Performed By: #### C RP, CMP, LIPID #### [facility] [address] [place] [address] Dr. Jazmyn Saavedra Protein [Mass/Vol] 8.0 g/dL Normal 6.4-8.2 [facility] Comment on above: Performed By: #### C RP, CMP, LIPID #### [facility] [address] [place] [address] Dr. Jazmyn Saavedra Sodium [Moles/Vol] 139 mmol/L Normal 136-145 [facility] Comment on above: Performed By: #### C RP, CMP, LIPID #### [facility] [address] [place] [address] Dr. Jazmyn Saavedra Urea nitrogen [Mass/Vol] 20.0 mg/dL Critically high 7.0-18.0 [facility] Comment on above: Performed By: #### C RP, CMP, LIPID #### [facility] [address] [place] [address] Dr. Jazmyn Saavedra Urea nitrogen/Creatinin e [Mass ratio] 25.0 mg/mg Normal [facility] Comment on above: Performed By: #### C RP, CMP, LIPID #### [facility] [address] [address] [address] Jazmyn Saavedra SED RATE [facility] 2021 SED RATE 47 mm/hr Critically high <=30 [facility] Comment on above: Performed By: #### S EDR #### [facility] [address] [place] [address] Dr. Jazmyn Saavedra ASYMPTOMATIC COVID-19 ANTIGE Non 05-18-2022 EUA Statement SEE BELOW Normal The [facility] Comment on above: Result Comment: This test [...] sooner. Performed By: #### S EDR #### [facility] [address] [place] [address] Dr. Jazmyn Saavedra SARS-CoV-2 (COVID-19) RNA NILES+probe Ql (Unsp spec) Positive Critically abnormal NEGATIVE [facility] Comment on above: Result Comment: SARS -CoV-2 antigen present; does not rule out coinfection with other pathogens. Performed By: #### S EDR #### [facility] [address] [address] [address] Jazmyn Saavedra Covid-19 PCR (CVDTB)on SARS-CoV-2 (COVID-19) RNA NILES+probe Ql (Unsp spec) Detected Critically abnormal NOT DETECTED [facility] Comment on above: Result Comment: This test is not yet approved or cleared by the [place] FDA. When there are no FDA-approved or cleared tests available, and other criteria are met, FDA can make tests available under an emergency access mechanism called an Emergency Use Authorization (EUA). The EUA for this test is supported by the [employer] of Health and Human Service's declaration that [...] used). Performed By: #### C VDTB #### [facility] [address] [address] [address] Jazmyn BARLOW MULTI-CANCER PANELon 02-12-2021 RESULT Results to be mailed directly to physician's office by reference lab. Normal [facility] Comment on above: Result Comment: Test performed by [facility] [address] [place] [address] [phone] No result expected. For billing and tracking purposes only. Performed By: #### 3 1846 #### [address] Vital Signs Date Time Vital Sign Value Performing Clinician Facility 11-16-2023 11:39-0500 Body mass index (BMI) [Ratio] 24.96 kg/m2 [employer] DO Work Phone: [facility] 11-16-2023 11:39-0500 Body weight 68.04 kg [employer] DO Work Phone: [facility] 11-16-2023 11:39-0500 Diastolic blood pressure 72 mm[Hg] Easton Jassi DO Work Phone: [facility] 11-16-2023 11:39-0500 Systolic blood pressure 118 mm[Hg] Easton Jassi DO Work Phone: [facility] 03-03-2023 14:35-0400 Blood Pressure Location Joselo N[facility] 03-03-2023 14:35-0400 Diastolic blood pressure 68 mm[Hg] Joselo NILL [facility] 03-03-2023 14:35-0400 Heart rate 68 /min Joselo NILL [facility] 03-03-2023 14:35-0400 Respiratory rate 16 /min Joselo NILL [facility] 03-03-2023 14:35-0400 Systolic blood pressure 114 mm[Hg] Joselo NILL [facility] Encounters Encounter Date Encounter Type Care Provider Facility Start: 11-16-2023 End: 11-16-2023 ambulatory EASTON KEENE Not Available Start: 11-16-2023 End: 11-16-2023 Postop follow up visit related to original px Easton Jassi DO Work Phone: [facility] Comment on above: Encounter for repeat Pap smear due to previous insuff cervical cells Start: 10-28-2023 End: 10-28-2023 ambulatory FELIX WHITNEY Not Available Start: 09-29-2023 End: 09-29-2023 ambulatory FELIX WHITNEY Not Available Start: 08-19-2023 End: 08-19-2023 ambulatory TOMAS I [facility] Start: 06-03-2023 End: 06-03-2023 ambulatory CHRISTIANM I [facility] Start: 04-07-2023 End: 04-08-2023 ambulatory Joselo STARKS Facility:[facility] Start: 04-07-2023 End: 04-07-2023 Patient encounter procedure Joselo STARKS General Surgery Nill/Said Arvind Start: 03-24-2023 End: 03-25-2023 ambulatory Joselo Llanes RAUDEL Facility:CD:[id number] Start: 03-03-2023 End: 03-04-2023 ambulatory Mariza Hoy Facility:[facility] Start: 03-03-2023 End: 03-03-2023 Patient encounter procedure Joselo Llanes RAUDEL General Surgery Nill/Said Arvind Start: 02-18-2023 ambulatory ASHLEIGH [facility] Start: 02-18-2023 ambulatory Mariza Hoy Facility:[facility] Start: 02-12-2023 Encounter for genera l adult medical examination without abnormal findings MARIZA HOY [facility] Start: 02-12-2023 End: 02-13-2023 ambulatory MARIZA WRIGHT Facility:[facility] Start: 02-05-2023 End: 02-06-[address] DOCTOR KELLOGG Facility:[facility] Start: 02-05-2023 End: 02-06-2023 Encounter for general adult medical examination without abnormal findings MARIZA HOY Facility:[facility] Start: 02-04-2023 End: 02-05-[address] IDA SOTO Facility:[facility] Start: 01-28-2023 End: [facility]-28[facility] Start: 09-23-2022 End: 09-23-[address] RUTHANN AC . Facility:[facility] Start: 08-28-2022 End: 08-29-[address] DOCTOR KELLOGG Facility:[facility] Start: 08-25-2022 End: 08-26-[address] DOCTOR KELLOGG Facility:[facility] Start: 08-07-2022 End: 08-08-2022 ambulatory MARIZA WRIGHT Facility:[facility] Start: 05-18-2022 End: 05-18-2022 ambulatory JACQUI BAUMANN Facility:[facility] Start: 05-12-2022 End: 05-12-2022 ambulatory JACQUI BAUMANN Facility:[facility] Procedures Date Procedure Procedure Detail Performing Clinician Start: 08-19-2023 Follow-up visit Follow-up TOMAS CLINTON Start: 03-24-2023 Colonoscopy Easton Keene [employer] Phone: Start: 03-24-2023 Colonoscopy Joselo STARKS [employer] Start: 03-24-2023 Esophagogastroduodenoscopy [employer]elo [employer] Start: 09-23-2022 Microscopic observation [Identifier] in Cervix by Cyto stain Easton Keene [employer] Phone: Start: 07-24-2015 Colonoscopy Joselo STARKS [employer] Start: 02-01-2007 Colonoscopy Joselo [employer] Bilateral mastectomy Joselo [employer] Biopsy of breast Joselo SCANLON [employer] section Joselo SCANLON [employer] Excision of cervical intervertebral disc Joselo [employer] Excision of lymph node Tony flori [employer] Comment on above: left inguinal Excision of salivary gland M marco [employer] Comment on above: x2 Granuloma (morpholog ic abnormality) Joselo [employer] Comment on above: x 2 History of radiofreq uency ablation operation for arrhythmia Joselo [employer] Total abdominal hyst erectomy with bilateral salpingo-oophorectomy Joselo Olark Plan of Treatment Date Care Activity Detail Author Start: 03-24-2033 Screening for malign ant neoplasm of colon [facility] Start: 09-23-2027 Screening for malign ant neoplasm of cervix [facility] Start: 01-27-2025 Screening for malign ant neoplasm of colon FIT-DNA [facility] Start: 11-20-2024 End: 11-20-2024 Patient encounter procedure 11/20/2024 4:00 PM EST Office Visit [facility] [address] [place] [address] [place] [address] Easton Keene, DO [address] [place] [address] [place] [address] [facility] Start: 06-04-2023 Influenza vaccination Influenza Vacc ine (#1) [facility] Start: 2008 Screening for malign ant neoplasm of breast Mammogram [facility] Start: 1968 Screening for malign ant neoplasm of colon [facility] Immunizations Immunization Date Immunization Notes Care Provider Fa cility 08-07-2022 SARS-CoV-2 (COVID-19 ) mRNA-1273 vaccine Joselo NILL [facility] 01-01-2022 SARS-CoV-2 mRNA (yvjqrzvsdje-uxyu-xkjcn se) vaccine Joselo NILL [facility] 06-18-2021 SARS-CoV-2 (COVID-19 ) mRNA-1273 vaccine Joselo NILL [facility] Comment on above: Result Comment: 2022: [id number] 10-30-2020 SARS-CoV-2 (COVID-19 ) mRNA-1273 vaccine Joselo SCANLONL [facility] 10-02-2020 SARS-CoV-2 (COVID-19 ) mRNA-1273 vaccine Joselo NILL [facility] Payers Date Payer Category Payer Unknown [id number] 2022 Unknown BCBS BCBS [id number] [id number] 2022-Present [phone] [address] [place] [address] [id number] 2019 Unknown [id number] 1970 Unknown [id number] 2.16.840.1.981082.3.579.2.593 1968 Unknown [id number] 2.16.840.1.641853.3.579.2.593 1968 Unknown [id number] 2.16.840.1.156914.3.579.2.593 1968 Unknown [id number] 2.16.840.1.925473.3.579.2.593 1968 Unknown [id number] 2.16.840.1.970173.3.579.2.593 1968 Unknown [id number] 2.16.840.1.150302.3.579.2.593 1968 Unknown [id number] 2.16.840.1.390831.3.579.2.593 1968 Unknown [id number] 2.16.840.1.889318.3.579.2.593 1968 Unknown [id number] 2.16.840.1.533488.3.579.2.593 1968 Unknown [id number] 2.16.840.1.171195.3.579.2.727 1968 Unknown [id number] 2.16.840.1.886137.3.579.2.727 1968 Unknown [id number] 2.16.840.1.478640.3.579.2.727 1968 Unknown [id number] 2.16.840.1.624542.3.579.2.1259 1968 Unknown [id number] 2.16.840.1.534622.3.579.2.1259 1968 Unknown [id number] 2.16.840.1.788999.3.579.2.1259 1961 Self-pay [id number] Unknown [id number] 2.16.840.1.148782.3.579.2.593 Social History Date Type Detail Facility Start: 03-03-2023 End: 09-24-2023 Tobacco smoking status Never smoked tobacco (finding) General [facility] Tobacco smoking status Never Gener al Surgery [facility] Start: 09-24-2023 Sex Assigned At Female F [facility] Start: 10-28-2023 Alcohol intake Current drinke [...] 03-03-2023 Functional Status N/A General Carson su[facility] Clinical Notes 01-28-2023 to 11-16-2023 Easton Keene, [...] Easton Keene DO documented in this encounter [facility] 08-19-2023 Note Attestation signed by [...] seen with attending physician, Dr. Sun Josue [facility] Medical Student , MS3 There are no diagnoses linked to this encounter. No diagnosis found. No orders of the defined types were placed in this encounter. No results found for this or any previous visit (from the past 36 hour(s)). No follow-ups on file. [facility] 06-03-2023 Note Attestation signed by Tomas [...] past 36 hour(s)). No follow-ups on file. [facility] 03-03-2023 Note Chief Complaint consultation for [...] History of pericar (more content not included)... [facility] Comment on above: Result Comment: Elec tronically Signed By: RAUDEL PUENTES, Joselo Barrera\Date and Time Signed: 03/03/23 16:35 EDT 02-18-2023 Note Patient ID: Teetee Small is a 53 y.o. female. Primary oncologist: Dr Kat Hernandez Primary Care Provider: Mariza Wright MD Subjective Pt presents alone for annual follow up. 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 Comments: [employer] offered, declined No signs chest wall recurrence. [...] present. Mental Statu (more content not included)... [facility] 02-04-2023 Note PROCEDURE: XR SACROI LIAC JOINT 3 VIEWS COMPARISON: None. HISTORY: Rheumatoid factor positive rheumatoid arthritis FINDINGS: SACRUM: No fracture, disruption of the sacral ala line, or cortical irregularity. COCCYX: No fracture or suspicious alignment. SOFT TISSUES: No widening of the sacroiliac joints. No radiopaque foreign body. OTHER: IMPRESSION: No significant abnormality Electronically authenticated by: IDA SOTO Date: 2023-02-04 18:18 [facility] 02-04-2023 Note PROCEDURE: XR HIP LT [...] by: IDA SOTO Date: 2023-02-04 18:17 [facility] 02-04-2023 Note PROCEDURE: XR FOOT R T MIN 3 VIEWS COMPARISON: None. HISTORY: Rheumatoid factor positive rheumatoid arthritis FINDINGS: BONES:No acute fracture or dislocation. Mild enthesopathic spurring of the calcaneus at the Achilles insertion. SOFT TISSUES:Negative. No visible soft tissue swelling. EFFUSION:None visible. OTHER: Negative. IMPRESSION: Mild calcaneal Achilles enthesopathy Electronically authenticated by: IDA SOTO Date: 2023-02-04 18:16 [facility] 01-29-2023 Note TB negative from 02/05 PA submitted via CMMs. Saira Kramer PharmD, BCACP 02/26/23 2:43 PM [facility] [phone] [facility] 01-29-2023 Note LVM with pt to confi rm shipment from [employer] [facility]. F/U confirm shipment from [employer] [facility]. Goyo Winston [facility] 03/26/2310:03 AM [facility] 01-29-2023 Note Called and spoke wit h the patient and she has not received medication yet, but the order has been placed from [facility]. We will F/U taco to make sure the medication was received. Melissa Arizmendi, Plsql Developer 03/15/23 3:49 PM [facility] 01-29-2023 Note Supervising Physicia n & [...] Tai, PharmD, BCACP, CSP 01/29/23 8:50 AM [facility] [phone] [facility] 01-29-2023 Note Called pt, she will contact [facility] soon to discuss filling. F/U check rx/shipment status next week Goyo Winston [facility] 231:12 PM [facility] 01-29-2023 Note Prior Authorization for [employer] has been approved 02/26/23-02/27/24. Case ID/Authorization Number:[id number] Must be filled at [facility], sending msg to MD for transfer. Calling pt to discuss filling at [facility]. LVM. F/U contact pt to discuss filling at [facility]. Goyo Winston [facility] 238:19 AM [facility] 01-29-2023 Note I called the patient to ensure that she has received his medication from [facility] and address any questions he may have, lvm. Kaleigh Rosas, [facility] 232:53 PM [facility] 01-29-2023 Note I called and spoke w ith the pt to confirm delivery and she has received medication with no follow up questions. 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 [facility] Evaluation + Plan note No data available for this section General Surgery [facility] Evaluation note Diagnosis Encounter for repeat Pap smear due to previous insuff cervical cells documented in this encounter [facility] No data available for this section General Surgery [facility] Progress note No data available for this section General Surgery [facility] Summary Purpose Family History No Family History [...] content) DATE CREATED AUTHOR 03/16/2021 [facility] DATE CREATED AUTHOR AUTHOR'S ORGANIZ ATION 02/15/2023 [facility] DATE CREATED AUTHOR AUTHOR'S ORGANIZ ATION 04/08/2023 [facility] DATE CREATED AUTHOR AUTHOR'S ORGANIZ ATION 08/21/2023 [facility] DATE CREATED AUTHOR AUTHOR'S ORGANIZ ATION 11/17/2023 [facility] EPIC Patient Care team informatio n (unrecognized section and content) 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 [employer] provides no warranty or guarantee of the accuracy or completeness of information in this document.
[2024-03-02 17:50] LABS: Free T3 2.64 pg/mL (2.18-3.98); Free T4 0.95 ng/dL (0.76-1.46)
== END 2024-03-02 16:32 | disposition home or self-care (01) ==
LOC: LAB 16:31
PROVIDERS: PCP Family Medicine; Visit Provider Family Medicine
DX: E03.9 Hypothyroidism, unspecified (principal)
CPT/HCPCS: 36415; 84439; 84481

== ENCOUNTER 2024-08-30 07:18 | Outpatient (OUT) | payer BC, SELFPAY ==
--- OUTSIDE RECORDS SUMMARY | 2024-08-30 07:21 | XMS_ITS | CCD ---
Author Organization [facility] Care Team Providers Care Nematologist Name Role Phone LIBBY WRIGHTLAS Consulting Unavailable HOY, MARIZA Primary Care Unavailable [...] Unavailable HOY, MARIZA Primary Care Unavailable HOY, MRAIZA Attending Unavailable HOY, MARIZA Admitting Unavailable MISC, DR BRAMBILA Consulting Unavailable HOY, MARIZA Primary Care Unavailable MISC, DR BRAMBILA Attending Unavailable MISC, DR BRAMBILA Admitting Unavailable HOY, MARIZA Consulting Unavailable HOY, MARIZA Primary Care Unavailable HOY, MARIZA Attending Unavailable HOY, MARIZA Admitting Unavailable WEST, DR DIA Temple Consulting Unavailable PASTOR JACQUI Consulting Unavailable HOY, MARIZA Primary Care Unavailable PASTOR JACQUI Attending Unavailable PASTOR, JACQUI Admitting Unavailable Hoy, Mariza Primary Care Physician Mariza Wright Referring Unavailable Joseol STARKS Attending Unavailable Joselo STARKS Attending Unavailable Joselo STARKS Attending Unavailable Mariza Wright MD Primary Care Provider [phone] FELIX WHITNEY Attending Unavailable FELIX WHITNEY Attending Unavailable EASTON KEENE Attending Unavailable TODD RENDON Attending Unavailable ALTOROK, NEZAM I Attending Unavailable JLUIETA SAMVANNA Attending Unavailable ALTOROK, NEZAM I Attending Unavailable ALTOROK, NEZAM I Attending Unavailable Allergies Allergy Classification Reported Allergen(s) Allergy Type Date of Onset Reaction(s) Facility (2 sources) Benzoyl Peroxide; Translations: [BENZOYL PEROXIDE] Drug Allergy 07-22-20 15 [facility] (1 source) Desonide Drug Allergy 04-05-20 13 [facility] (1 source) Sulfonamides (Antibiotic) Drug allergy (disorder) 04-05-20 13 [facility] (1 source) Misc-Other; Translations: [Misc-Other] Propensity to adverse reactions (disorder) 07-22-20 15 [facility] (3 sources) Sulfonamides (Antibiotic); Translations: [sulfa drugs] Drug allergy Discoloration of skin (finding) [facility] [place] (1 source) Benzoyl Peroxide Drug Allergy 09-20-20 23 [facility] (2 sources) Sulfamethoxazole / Trimethoprim; Translations: [SULFAMETHOXAZOLE-T RIMETHOPRIM] Drug Allergy 02-02-20 23 Rash [facility] (1 source) Sulfonamides (Antibiotic) Drug Allergy 09-20-20 23 [facility] Work Phone: (1 source) Wound Dressing Adhesive Drug Allergy 09-21-20 14 Unknown [facility] (1 source) Adhesive agent; Translations: [ADHESIVE] Propensity to adverse reactions to drug (disorder) 09-21-20 14 [facility] Rep[facility] (1 source) Sulfonamides (Antibiotic); Translations: [SULFA (SULFONAMIDE ANTIBIOTICS)] Propensity to adverse reactions to drug (disorder) 07-31-20 14 [facility] (1 source) ADHESIVE TAPE-SILICONES; Translations: [ADHESIVE TAPE-SILICONES] Propensity to adverse reactions to drug (disorder) 10-07-19 22 [facility] Medications Current Medications Medication Drug [...] pain] Onset: 3 Episodic Cancer of breast (1 source) Malignant neoplasm of unspecified site of unspecified female breast; Translations: [MAL GABY UNS SITE UNS FEMALE BREAST] Onset: 3 Chronic Cancer of breast (2 sources) History of malignant neoplasm of breast 02-26-2023 Episodic Cardiac dysrhythmias (4 sources) Supraventricular tachycardia; Translations: [Paroxysmal atrial fibrillation] Onset: 4 02-26-2023 Chronic Disorders of lipid metabolism (3 sources) Other hyperlipidemia; Translations: [OTHER HYPERLIPIDEMIA] Onset: 2 Chronic Esophageal disorders (3 sources) Gastroesophageal reflux disease without esophagitis; Translations: [Gastro-esophageal reflux disease without esophagitis] Onset: 3 Chronic Immunizations and screening for infectious disease (7 sources) Encounter for screening for other viral diseases; Translations: [Encounter for screening for respiratory tuberculosis] Onset: 2 Episodic Other circulatory disease (2 sources) Raynaud's disease [...] sources) Disorder of connective tissue 02-26-2023 Episodic Residual codes; unclassified (2 sources) Other specified postprocedural states; Translations: [Other specified postprocedural states] Onset: 4 Episodic Rheumatoid arthritis and related disease (2 sources) Rheumatoid arthritis 02-26-2023 Chronic Spondylosis; intervertebral disc disorders; other back problems (2 sources) Degeneration of cervical intervertebral disc 02-26-2023 Chronic Spondylosis; intervertebral disc disorders; other back problems (2 sources) Cervical radiculopathy 02-26-2023 Episodic Systemic lupus erythematosus and connective tissue disorders (8 sources) Sjogren's syndrome; Translations: [Systemic lupus erythematosus] Onset: 3 02-26-2023 Chronic Thyroid disorders (4 sources) Hypothyroidism; Translations: [Hypothyroidism, unspecified] Onset: 4 02-26-2023 Chronic Unclassified (4 sources) RHEU ARTH R FCT O SIT W/O ORG SY IN; Translations: [RHEU ARTH R FCT O SIT W/O ORG SY IN] Onset: 2 Unclassified (2 sources) CONTACT W/AND (SUSP) EXPOS COVID-19; Translations: [CONTACT W/AND (SUSP) EXPOS COVID-19] Onset: 2 Unclassified (2 sources) Body mass index 20-24 - normal 03-03-2023 Unclassified (1 source) Supraventricular tachycardia, unspecified; Translations: [Supraventricular tachycardia, unspecified] Onset: 4 Unclassified (1 source) Rheumatoid arthritis with rheumatoid factor of other specified site without organ or systems involvement; Translations: [Rheumatoid arthritis with rheumatoid factor of other specified site without organ or systems involvement] Onset: 2 Varicose veins of lower extremity (2 sources) Varicose veins of lower extremity 02-26-2023 Episodic Viral infection (1 source) COVID-19; Translations: [COVID-19] Onset: Past or Other Problems Problem Classification Problem Date Documented Date Episodic/Chronic Cardiac dysrhythmias (2 sources) Palpitations; Translations: [Palpitations] Onset: 03-08-2024 Episodic Other aftercare (4 sources) Other retirement (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; Translations: [OTH CORRECTION CURRENT DRUG THERAPY] Onset: 08-25-2022 Episodic Other bone disease and musculoskeletal deformities (4 sources) Other specified disorders of bone density and structure, other site; Translations: [OTH D/O BONE DEN STRUCT OTH SITE] Onset: 08-28-2022 Episodic Other screening for suspected conditions (not mental disorders or infectious disease) (9 sources) Encounter for screening for malignant neoplasm of cervix; Translations: [Patient encounter status] Onset: 09-23-2022 Episodic Unclassified (1 source) RHEU ARTH R FCT O SIT W/O ORG SY IN; Translations: [RHEU ARTH R FCT O SIT W/O ORG SY IN] Onset: 02-04-2023 Unclassified (1 source) CONTACT W/AND (SUSP) EXPOS COVID-19; Translations: [CONTACT W/AND (SUSP) EXPOS COVID-19] Onset: 05-18-2022 Unclassified (1 source) Supraventricular tachycardia, unspecified; Translations: [Supraventricular tachycardia, unspecified] Onset: 05-22-2024 Unclassified (1 source) Rheumatoid arthritis with rheumatoid factor of other specified site without organ or systems involvement; Translations: [Rheumatoid arthritis with rheumatoid factor of other specified site without organ or systems involvement] Onset: 05-04-2024 Results Test Name Value Interpretation Reference Range Facility Refillon 08-09-2024 Refill [id number] Yamileth Hernandez 1970 F Date Provider Department Center 08/09/2024 TOMAS ROBERTO I [facility] Family History Problem Relation Age of Onset Dementia Mother Diabetes Mother Other Mother 59 Coronary artery disease Mother Atrial fibrillation Father Coronary artery disease Father Stroke Father 56 Heart attack Father 62 Family Status - Relation Status Age at Mother Alive Father Alive Reason for Visit and Comments: Med Refill [[id number]] - Patient called for refill: triamcinolone (Kenalog) 0.1 % oral paste use in mouth or throat if needed for mucositis/ methylPREDNISolone (Medrol) 4 mg tablet take 1 tablet by mouth in morning take 1/2 tablet by mouth everyday as needed. Please advise. Thanks! [facility] 36on 08-01-2024 36 Called and left deta iled message for patient [facility] Refillon 08-01-2024 Refill [id number] Yamileth Hernandez 1970 Date Provider Department Center 08/01/2024 TOMAS ROBERTO I [facility] History Problem Relation Age of Onset Dementia Mother Diabetes Mother Other Mother 59 Coronary artery disease Mother Atrial fibrillation Father Coronary artery disease Father Stroke Father 56 Heart attack Father 62 Family Status - Relation Status Age at Mother Alive Father Alive Reason for Visit and Comments: Med Refill [[id number]] [facility] Orders Onlyon 07-28-2024 Orders Only [id number] Yamileth Hernandez 1970 Provider Department Center 07/28/2024 TOMAS ROBERTO I [facility] Family History Problem Relation Age of Onset Dementia Mother Diabetes Mother Other Mother 59 Coronary artery disease Mother Atrial fibrillation Father Coronary artery disease Father Stroke Father 56 Heart attack Father 62 Family Status - Relation Status Age at Mother Alive Father Alive [facility] 36on 07-26-2024 36 Patient called jus gonzalez if you can put in an order for a DEXA scan for her. She stated that she needed a refill for medrol and triamcinolone. [facility] Telephoneon 07-26-2024 Telephone [id number] Yamileth Hernandez 1970 Provider Department Center 07/26/2024 TOMAS ROBERTO I [facility] Family History Problem Relation Age of Onset Dementia Mother Diabetes Mother Other Mother 59 Coronary artery disease Mother Atrial fibrillation Father Coronary artery disease Father Stroke Father 56 Heart attack Father 62 Family Status - Relation Status Age at Mother Alive Father Alive Reason for Visit and Comments: Request For Order(s) [706] [facility] Refillon 06-14-2024 Refill [id number] Yamileth Hernandez 1970 Date Provider Department Center 06/14/2024 [id number] [facility] Family History Problem Relation Age of Onset Dementia Mother Diabetes Mother Other Mother 59 Coronary artery disease Mother Atrial fibrillation Father Coronary artery disease Father Stroke Father 56 Heart attack Father 62 Family Status - Relation Status Age at Mother Alive Father Alive Reason for Visit and Comments: Med Refill [[id number]] Normal [facility] Office Visiton 05-22-2024 Follow-up visit [id number] Yamileth Hernandez 1970 Date Provider Department Center 05/22/2024 TODD GUSMAN Family History Problem Relation Age of Onset Dementia Mother Diabetes Mother Other Mother 59 Coronary artery disease Mother Atrial fibrillation Father Coronary artery disease Father Stroke Father 56 Heart attack Father 62 Family Status - Relation Status Age at Mother Alive Father Alive Level of Service:60168 ND OFFICE/OUTPATIENT ESTABLISHED LOW MDM 20 MIN Reason for Visit and Comments: Atrial Fibrillation [80] [facility] Follow-Upon 05-04-2024 Follow-Up [id number] Yamileth Hernandez 1970 Provider Department Center 05/04/2024 215-TOMAS CLINTON I [facility] Family History Problem Relation Age of Onset Dementia Mother Diabetes Mother Other Mother 59 Coronary artery disease Mother Atrial fibrillation Father Coronary artery disease Father Stroke Father 56 Heart attack Father 62 Family Status - Relation Status Age at Mother Alive Father Alive Level of Service:45710 ND OFFICE/OUTPATIENT ESTABLISHED MOD MDM 30 MIN (GC) Reason for Visit and Comments: Follow-up [[id number]] [facility] Office Visiton 03-08-2024 Follow-up visit [id number] Yamileth Hernandez 1970 Date Provider Department Center 03/08/2024 [id number] ZAMUDIO Family History Problem Relation Age of Onset Dementia Mother Diabetes Mother Other Mother 59 Coronary artery disease Mother Atrial fibrillation Father Coronary artery disease Father Stroke Father 56 Heart attack Father 62 Family Status - Relation Status Age at Mother Alive Father Alive Level of Service:68237 ND OFFICE/OUTPATIENT NEW MODERATE MDM 45 MINUTES [facility] Follow-Upon 12-30-2023 Follow-Up [id number] DavidYamileth 1970 F Date Provider Department Center 12/30/2023 215-CHAVOTOMAS PINTO [facility] No family history on file Level of Service:71155 ND OFFICE/OUTPATIENT ESTABLISHED MOD MDM 30 MIN Reason for Visit and Comments: Follow-up [[id number]] [facility] Follow-Upon 08-19-2023 Follow-Up [id number] DavidYamileth sousa 1970 F Date Provider Department Center 08/19/2023 DemetriceTOMAS CLINTON I [facility] No family history on file Level of Service:51386 ND OFFICE/OUTPATIENT ESTABLISHED MOD MDM 30-39 MIN Reason for Visit and Comments: Follow-up [[id number]] - Follow up [facility] Orders Onlyon 08-12-2023 Orders Only [id number] Yamileth Hernandez 1970 F Date Provider Department Center 08/12/2023 [id number], HISTORICAL [facility] PRIM [facility] No family history on file [facility] Ambulatory Visit Summaryon 0 04-07-2023 Ambulatory Visit Summary TEETEE HERNANDEZ :1970 Visit Date:04/07/2023 Ambulatory Visit Instructions Your [...] lupus erythematosus Varicose veins of legs Normal [facility] General Surgery Office/Clini c Noteon 04-07-2023 [...] SARS-CoV-2 (COVID-19) mRNA-1273 vaccine 08/07/2022 Recorded SARSCoV2 mRNA(msscjwslc-bgqf-vkfskd) vac 01/01/2022 Recorded SARS-CoV-2 (COVID-19) mRNA-1273 vaccine 06/18/2021 Recorded 2023-02-26: TPV50 SARS-CoV-2 (COVID-19) mRNA-1273 vaccine 10/30/2020 Recorded SARS-CoV-2 (COVID-19) mRNA-1273 vaccine 10/02/2020 Recorded Normal [facility] Comment on above: Result Comment: Elec tronically Signed By: RAUDEL PUENTES, Joselo Quinterobr\Date and Time Signed: 04/07/23 14:01 EDT Reminderson 04-02-2023 Reminders - From: Cristal Gordon LPN To: N - Clinical; Sent: 04/02/2023 11:03:11 EDT Show up: 02/21/2033 07:00:00 EDT Subject: colonoscopy recall Due Date/Time: 03/24/2033 07:00:00 EDT Reminder/Recall Patient due for screening colonoscopy 03/24/2033. [facility] Pathology Noteon 03-29-2023 Pathology Note [id number]#1.00CD:127 [facility] Outside Colonoscopyon 2022 Outside Colonoscopy [id number]#1.00CD:127 [facility] Pre-Certification Formon Pre-Certification Form [id number]#1.00CD:127 [facility] Consent for Procedure/Surger yon 03-05-2023 Consent for Procedure/Surgery [id number]#1.00CD:127 [facility] Facesheeton 03-04-2023 Facesheet [id number]#1.00CD:127 [facility] Ambulatory Visit Summaryon 0 03-03-2023 Ambulatory Visit Summary TEETEE HERNANDEZ :1970 Visit Date:03/03/2023 Ambulatory Visit Instructions Your Care Team Attending Physician - RAUDEL PUENTES, Joselo Llanes Primary Care Physician - Kyle PUENTES, Mariza Referring Physician - Kyle PUENTES, Mariza This Is Your Medications List Contact prescribing [...] erythematosus Varicose veins of legs Normal [facility] RAD - CT Reporton 03-03-20[address] RAD - CT Report [id number]#1.00CD:127 Normal [facility] Physician Referralon 023 Physician Referral [id number]#1.00CD:127 Normal [facility] CT ABD/PELV W CONon 02-13-20 23 [...] by: IDA SOTO Date: 2023-02-12 09:54 Normal [facility] QUANTIFERON TB GOLD PLUSon 0 02-07-2023 QuantiFERON Criteria Comment Normal [facility] Comment on above: Result Comment: Rehan tiFERON-TB [...] test. Performed By: #### Q NTTB #### [facility] [address] [place] [address] Dr. Jazmyn Saavedra QuantiFERON Incubation Incubation performed. Normal [facility] Comment on above: Performed By: #### Q NTTB #### [facility] [address] [place] [address] Dr. Jazmyn Saavedra QuantiFERON Mitogen Value 6.87 IU/mL Normal [facility] Comment on above: Performed By: #### Q NTTB #### [facility] [address] [place] [address] Dr. Jazmyn Saavedra QuantiFERON Nil Value 0.00 IU/mL Normal [facility] Comment on above: Performed By: #### Q NTTB #### [facility] [address] [place] [address] Dr. Jazmyn Saavedra QuantiFERON TB1 Ag Value 0.00 IU/mL Normal [facility] Comment on above: Performed By: #### Q NTTB #### [facility] [address] [place] [address] Dr. Jazmyn Saavedra QuantiFERON TB2 Ag Value 0.00 IU/mL Normal [facility] Comment on above: Performed By: #### Q NTTB #### [facility] [address] [place] [address] Dr. Jazmyn Saavedra QuantiFERON-TB Gold Plus Negative Normal Negative [facility] Comment on above: Result Comment: No r esponse to M tuberculosis antigens detected. Infection with M tuberculosis is unlikely, but high risk individuals should be considered for additional testing (ATS/IDSA/CDC Clinical Practice Guidelines, 2017). The reference range is an Antigen minus Nil result of <0.35 IU/mL. Chemiluminescence immunoassay methodology Performed By: #### Q NTTB #### [facility] [address] [place] [address] Dr. Jazmyn Saavedra HEP B COREon 02-06-2023 Hep B Core Ab, Tot Negative Normal Negative [facility] Comment on above: Performed By: #### S EDR #### [facility] [address] [place] [address] Dr. Jazmyn Saavedra HEP B SURFACE ANTIGEN SCREEN on 02-06-2023 HBsAg Screen Negative Normal Negative [facility] Comment on above: Performed By: #### H BSANS #### [facility] [address] [place] [address] Dr. Jazmyn Saavedra CBC AUTO DIFFon 02-05-2023 BASO # 0.0 103/ul Normal 0.0-0.1 [facility] Comment on above: Performed By: #### C BC #### [facility] [address] [place] [address] Dr. Jazmyn Saavedra Basophils/100 WBC (Bld) 0.5 % Normal 0.2-2.0 [facility] Comment on above: Performed By: #### C BC #### [facility] [address] [place] [address] Dr. Jazmyn Saavedra EO # 0.0 103/ul Normal 0.0-0.7 [facility] Comment on above: Performed By: #### C BC #### [facility] [address] [place] [address] Dr. Jazmyn Saavedra Eosinophils/100 WBC (Bld) 0.8 % Critically low 0.9-7.0 [facility] Comment on above: Performed By: #### C BC #### [facility] [address] [place] [address] Dr. Jazmyn Saavedra Erythrocyte distribution width (RBC) [Ratio] 13.2 % Normal 11.0-15.0 [facility] Comment on above: Performed By: #### C BC #### [facility] [address] [place] [address] Dr. Jazmyn Saavedra Hematocrit (Bld) [Volume fraction] 41.1 % Normal 36.0-48.0 [facility] Comment on above: Performed By: #### C BC #### [facility] [address] [place] [address] Dr. Jazmyn Saavedra Hemoglobin (Bld) [Mass/Vol] 13.4 g/dL Normal 12.0-16.0 [facility] Comment on above: Performed By: #### C BC #### [facility] [address] [place] [address] Dr. Jazmyn Saavedra IG # 0.01 10e3/ul Normal 0.00-0.03 [facility] Comment on above: Performed By: #### C BC #### [facility] [address] [place] [address] Dr. Jazmyn Saavedra IG % 0.3 % Normal 0.0-0.5 [facility] Comment on above: Performed By: #### C BC #### [facility] [address] [place] [address] Dr. Jazmyn Saavedra LYMPH # 1.2 103/ul Normal 1.2-3.8 [facility] Comment on above: Performed By: #### C BC #### [facility] [address] [place] [address] Dr. Jazmyn Saavedra Lymphocytes/100 WBC (Bld) 31.9 % Normal 20.5-60.0 [facility] Comment on above: Performed By: #### C BC #### [facility] [address] [place] [address] Dr. Jazmyn Saavedra MANUAL DIFF REQ NO Normal [facility] Comment on above: Performed By: #### C BC #### [facility] [address] [place] [address] Dr. Jazmyn Saavedra MCH (RBC) [Entitic mass] 30.6 pg Normal 26.7-34.0 [facility] Comment on above: Performed By: #### C BC #### [facility] [address] [place] [address] Dr. Jazmyn Saavedra MCHC (RBC) [Mass/Vol] 32.6 g/dL Normal 29.9-35.2 [facility] Comment on above: Performed By: #### C BC #### [facility] [address] [place] [address] Dr. Jazmyn Saavedra MCV (RBC) [Entitic vol] 93.8 fL Normal 81.0-99.0 [facility] Comment on above: Performed By: #### C BC #### [facility] [address] [place] [address] Dr. Jazmyn Saavedra MONO # 0.5 103/ul Normal 0.3-0.8 [facility] Comment on above: Performed By: #### C BC #### [facility] [address] [place] [address] Dr. Jazmyn Saavedra Monocytes/100 WBC (Bld) 14.1 % Critically high 1.7-12.0 [facility] Comment on above: Performed By: #### C BC #### [facility] [address] [place] [address] Dr. Jazmyn Saavedra NEUT # 1.9 103/ul Normal 1.4-6.5 [facility] Comment on above: Performed By: #### C BC #### [facility] [address] [place] [address] Dr. Jazmyn Saavedra Neutrophils/100 WBC (Bld) 52.4 % Normal 43.0-75.0 [facility] Comment on above: Performed By: #### C BC #### [facility] [address] [place] [address] Dr. Jazmyn Saavedra Platelet mean volume (Bld) [Entitic vol] 9.4 fL Critically low 9.5-13.5 [facility] Comment on above: Performed By: #### C BC #### [facility] [address] [place] [address] Dr. Jazmyn Saavedra PLT 342 103/ul Normal 150-450 [facility] Comment on above: Performed By: #### C BC #### [facility] [address] [place] [address] Dr. Jazmyn Saavedra RBC 4.38 106/ul Normal 4.20-5.40 [facility] Comment on above: Performed By: #### C BC #### [facility] [address] [place] [address] Dr. Jazmyn Saavedra WBC 3.7 103/ul Critically low 4.0-11.0 [facility] Comment on above: Performed By: #### C BC #### [facility] [address] [place] [address] Dr. Jazmyn Saavedra FREE THYROXINE INDEX T7on FTI 3.20 Normal 1.30-4.50 [facility] Comment on above: Performed By: #### S EDR #### [facility] [address] [address] [address] Jazmyn Saavedra T3U 36.0 % Normal 30.0-39.0 [facility] Comment on above: Performed By: #### S EDR #### [facility] [address] [address] [address] Jazmyn Saavedra T4 [Mass/Vol] 8.90 ug/dL Normal 4.80-13.90 [facility] Comment on above: Performed By: #### S EDR #### [facility] [address] [place] [address] Dr. Jazmyn Saavedra GLYCOHEMOGLOBIN A1Con 2022 ADA RECOMMENDATION SEE BELOW Normal [facility] Comment on above: Result Comment: ADA RECOMMENDED LIMIT 4.0 - 6.0 ADA THERAPEUTIC TARGET < 7.0 ACTION SUGGESTED > 7.0 Performed By: #### S EDR #### [facility] [address] [place] [address] Dr. Jazmyn Saavedra Glucose [Mass/Vol] 123 mg/dL Normal [facility] Comment on above: Performed By: #### S EDR #### [facility] [address] [place] [address] Dr. Jazmyn Saavedra HbA1c (Bld) [Mass fraction] 5.9 % Normal 4.5-6.2 [facility] Comment on above: Performed By: #### S EDR #### [facility] [address] [place] [address] Dr. Jazmyn Saavedra LIPID PROFILEon 02-05-2023 CHOL-HDL RATIO NORM SEE BELOW Normal [facility] Comment on above: Result Comment: 3.3 - 4.4 LOW RISK 4.4 - 7.1 AVERAGE RISK 7.1 - 11.0 MODERATE RISK >11.0 HIGH RISK Performed By: #### S EDR #### [facility] [address] [place] [address] Dr. Jazmyn Saavedra Cholesterol [Mass/Vol] 256 mg/dL Critically high <=200 [facility] Comment on above: Performed By: #### S EDR #### [facility] [address] [address] [address] Jazmyn Saavedra Cholesterol in HDL [Mass/Vol] 108 mg/dL Critically high 40-60 [facility] Comment on above: Performed By: #### S EDR #### [facility] [address] [address] [address] Jazmyn Saavedra Cholesterol in LDL [Mass/Vol] 139.4 mg/dL Normal [facility] Comment on above: Performed By: #### S EDR #### [facility] [address] [address] [address] Jazmyn Saavedra Cholesterol.total/ Cholesterol in HDL [Mass ratio] 2.4 {ratio} Normal [facility] Comment on above: Performed By: #### S EDR #### [facility] [address] [address] [address] Jazmyn Saavedra HDL NORMAL > or = 60 mg/dl - LO W CARDIOVASCULAR RISK <40 mg/dl - HIGH CARDIOVASCULAR RISK Normal [facility] Comment on above: Performed By: #### S EDR #### [facility] [address] [address] [address] Jazmyn Saavedra LDL CALC NORMAL SEE BELOW Normal [facility] Comment on above: Result Comment: <100 mg/dl OPTIMAL 100 - 129 mg/dl NEAR OR ABOVE OPTIMAL 130 - 159 mg/dl BORDERLINE HIGH 160 - 189 mg/dl HIGH >190 mg/dl VERY HIGH Performed By: #### S EDR #### [facility] [address] [address] [address] Jazmyn Saavedra Triglyceride [Mass/Vol] 43 mg/dL Normal <=150 [facility] Comment on above: Performed By: #### S EDR #### [facility] [address] [address] [address] Jazmyn Saavedra VLDL CALC 8.6 mg/dL Normal [facility] Comment on above: Performed By: #### S EDR #### [facility] [address] [address] [address] Jazmyn Saavedra PROF 14(COMP METB)on 023 Albumin [Mass/Vol] 4.0 g/dL Normal 3.4-5.0 [facility] Comment on above: Performed By: #### T 7, CMP, LIPID, TSH #### [facility] [address] [address] [address] Jazmyn Saavedra Albumin/Globulin [Mass ratio] 0.9 {ratio} Normal [facility] Comment on above: Performed By: #### T 7, CMP, LIPID, TSH #### [facility] [address] [address] [address] Jazmyn Saavedra ALP [Catalytic activity/Vol] 57 U/L Normal 46-116 [facility] Comment on above: Performed By: #### T 7, CMP, LIPID, TSH #### [facility] [address] [place] [address] Dr. Jazmyn Saavedra ALT [Catalytic activity/Vol] 23 U/L Normal 14-59 [facility] Comment on above: Performed By: #### T 7, CMP, LIPID, TSH #### [facility] [address] [address] [address] Jazmyn Saavedra Anion gap [Moles/Vol] 13.8 mmol/L Normal [facility] Comment on above: Performed By: #### T 7, CMP, LIPID, TSH #### [facility] [address] [place] [address] Dr. Jazmyn Saavedra AST [Catalytic activity/Vol] 23 U/L Normal 15-37 [facility] Comment on above: Performed By: #### T 7, CMP, LIPID, TSH #### [facility] [address] [address] [address] Jazmyn Saavedra Bilirubin [Mass/Vol] 0.6 mg/dL Normal 0.2-1.0 [facility] Comment on above: Performed By: #### T 7, CMP, LIPID, TSH #### [facility] [address] [address] [address] Jazmyn Saavedra Calcium [Mass/Vol] 9.6 mg/dL Normal 8.5-10.1 [facility] [facility] Comment on above: Performed By: #### T 7, CMP, LIPID, TSH #### [facility] [address] [address] [address] Jazmyn Saavedra Chloride [Moles/Vol] 100 mmol/L Normal 98-107 [facility] Comment on above: Performed By: #### T 7, CMP, LIPID, TSH #### [facility] [address] [address] [address] Jazmyn Saavedra CO2 [Moles/Vol] 29.9 mmol/L Normal 21.0-32.0 [facility] Comment on above: Performed By: #### T 7, CMP, LIPID, TSH #### [facility] [address] [address] [address] Jazmyn Saavedra Creatinine [Mass/Vol] 0.89 mg/dL Normal 0.55-1.02 [facility] Comment on above: Performed By: #### T 7, CMP, LIPID, TSH #### [facility] [address] [address] [address] Jazmyn Saavedra EGFR-AF MACANESE >60 Normal >=60 [facility] Comment on above: Performed By: #### T 7, CMP, LIPID, TSH #### [facility] [address] [address] [address] Jazmyn Saavedra EGFR-NON AF MACANESE >60 Normal >=60 [facility] Comment on above: Performed By: #### T 7, CMP, LIPID, TSH #### [facility] [address] [address] [address] Jazmyn Saavedra Globulin (S) [Mass/Vol] 4.4 g/dL Normal [facility] Comment on above: Performed By: #### T 7, CMP, LIPID, TSH #### [facility] [address] [address] [address] Jazmyn Saavedra Glucose [Mass/Vol] 89 mg/dL Normal 74-106 [facility] Comment on above: Performed By: #### T 7, CMP, LIPID, TSH #### [facility] [address] [address] [address] Jazmyn Saavedra Potassium [Moles/Vol] 3.7 mmol/L Normal 3.5-5.1 [facility] Comment on above: Performed By: #### T 7, CMP, LIPID, TSH #### [facility] [address] [address] [address] Jazmyn Saavedra Protein [Mass/Vol] 8.4 g/dL Critically high 6.4-8.2 [facility] Comment on above: Performed By: #### T 7, CMP, LIPID, TSH #### [facility] [address] [address] [address] Jazmyn Saavedra Sodium [Moles/Vol] 140 mmol/L Normal 136-145 [facility] Comment on above: Performed By: #### T 7, CMP, LIPID, TSH #### [facility] [address] [place] [address] Dr. Jazmyn Saavedra Urea nitrogen [Mass/Vol] 17.0 mg/dL Normal 7.0-18.0 [facility] Comment on above: Performed By: #### T 7, CMP, LIPID, TSH #### [facility] [address] [place] [address] Dr. Jazmyn Saavedra Urea nitrogen/Creatinin e [Mass ratio] 19.1 mg/mg Normal [facility] Comment on above: Performed By: #### T 7, CMP, LIPID, TSH #### [facility] [address] [place] [address] Dr. Jazmyn Saavedra TSHon 02-05-2023 TSH 0.984 uIU/mL Normal 0.358-3.740 [facility] Comment on above: Performed By: #### S EDR #### [facility] [address] [place] [address] Dr. Jazmyn Saavedra PAP ACOG PANEL 2: 30 to 65on 10-07-2022 . . Normal [facility] Comment on above: Result Comment: Perf ormed at: [facility] Performed By: #### S EDR #### [facility] [address] [place] [address] Dr. Jazmyn Saavedra Age Gdln ACOG Testing 30-65 Normal [facility] Comment on above: Performed By: #### S EDR #### [facility] [address] [address] [address] Jazmyn Saavedra DIAGNOSIS: Comment Normal [facility] Comment on above: Result Comment: NEGA TIVE FOR INTRAEPITHELIAL LESION OR MALIGNANCY. Performed at: [facility] Performed By: #### S EDR #### [facility] [address] [address] [address] Jazmyn Saavedra HPV Aptima Negative Normal Negative [facility] Comment on above: Result Comment: This nucleic acid amplification test detects fourteen high-risk HPV types (16,18,31,33,35,39,45,51,52,56,58,59,66,68) without differentiation. Performed at: =G Performed By: #### S EDR #### [facility] [address] [place] [address] Dr. Jazmyn Saavedra HPV Genotype Reflex Comment Normal [facility] Comment on above: Result Comment: Crit eria not met, HPV Genotype not performed. Performed at: [facility] Performed By: #### S EDR #### [facility] [address] [place] [address] Dr. Jazmyn Saavedra Methodology: Comment Normal [facility] Comment on above: Result Comment: This liquid based ThinPrep(R) pap test was screened with the use of an image guided system. Performed at: [facility] Performed By: #### S EDR #### [facility] [address] [place] [address] Dr. Jazmyn Saavedra Note: Comment Normal [facility] Comment on above: Result Comment: The Pap smear is a screening test designed to aid in the detection of premalignant and malignant conditions of the uterine cervix. It is not a diagnostic procedure and should not be used as the sole means of detecting cervical cancer. Both false-positive and false-negative reports do occur. . Performed at: [facility] Performed By: #### S EDR #### [facility] [address] [place] [address] Dr. Jazmyn Saavedra Performed by: Comment Normal [facility] Comment on above: Result Comment: Daryl Calhoun, Digital Campaign Manager (ASCP) Performed at: [facility] Performed By: #### S EDR #### [facility] [address] [place] [address] Dr. Jazmyn Saavedra Specimen adequacy: Comment Normal [facility] Comment on above: Result Comment: Sati sfactory for evaluation. Endocervical component may not be distinguished in cases of atrophy. Performed at: [facility] Performed By: #### S EDR #### [facility] [address] [place] [address] Dr. Jazmyn Saavedra XR DEXA BONE DENSITYon 08-28 XR DEXA [...] by: GILBERT GEORGE Date: 2022-08-28 08:47 Normal [facility] CBC AUTO DIFFon 08-25-2022 BASO # 0.0 103/ul Normal 0.0-0.1 [facility] Comment on above: Performed By: #### S EDR #### [facility] [address] [place] [address] Dr. Jazmyn Saavedra Basophils/100 WBC (Bld) 0.5 % Normal 0.2-2.0 [facility] Comment on above: Performed By: #### S EDR #### [facility] [address] [place] [address] Dr. Jazmyn Saavedra EO # 0.1 103/ul Normal 0.0-0.7 [facility] Comment on above: Performed By: #### S EDR #### [facility] [address] [place] [address] Dr. Jazmyn Saavedra Eosinophils/100 WBC (Bld) 1.2 % Normal 0.9-7.0 [facility] Comment on above: Performed By: #### S EDR #### [facility] [address] [place] [address] Dr. Jazmyn Saavedra Erythrocyte distribution width (RBC) [Ratio] 13.2 % Normal 11.0-15.0 [facility] Comment on above: Performed By: #### S EDR #### [facility] [address] [place] [address] Dr. Jazmyn Saavedra Hematocrit (Bld) [Volume fraction] 38.4 % Normal 36.0-48.0 [facility] Comment on above: Performed By: #### S EDR #### [facility] [address] [place] [address] Dr. Jazmyn Saavedra Hemoglobin (Bld) [Mass/Vol] 12.6 g/dL Normal 12.0-16.0 [facility] Comment on above: Performed By: #### S EDR #### [facility] [address] [place] [address] Dr. Jazmyn Saavedra IG # 0.01 10e3/ul Normal 0.00-0.03 [facility] Comment on above: Performed By: #### S EDR #### [facility] [address] [place] [address] Dr. Jazmyn Saavedra IG % 0.2 % Normal 0.0-0.5 [facility] Comment on above: Performed By: #### S EDR #### [facility] [address] [place] [address] Dr. Jazmyn Saavedra LYMPH # 1.7 103/ul Normal 1.2-3.8 [facility] Comment on above: Performed By: #### S EDR #### [facility] [address] [place] [address] Dr. Jazmyn Saavedra Lymphocytes/100 WBC (Bld) 40.8 % Normal 20.5-60.0 [facility] Comment on above: Performed By: #### S EDR #### [facility] [address] [place], [place] [id number] Dr. Jazmyn Saavedra MANUAL DIFF REQ NO Normal [facility] Comment on above: Performed By: #### S EDR #### [facility] [address] [place] [address] Dr. Jazmyn Saavedra MCH (RBC) [Entitic mass] 31.0 pg Normal 26.7-34.0 [facility] Comment on above: Performed By: #### S EDR #### [facility] [address] [place] [address] Dr. Jazmyn Saavedra MCHC (RBC) [Mass/Vol] 32.8 g/dL Normal 29.9-35.2 [facility] Comment on above: Performed By: #### S EDR #### [facility] [address] [place] [address] Dr. Jazmyn Saavedra MCV (RBC) [Entitic vol] 94.3 fL Normal 81.0-99.0 [facility] Comment on above: Performed By: #### S EDR #### [facility] [address] [place] [address] Dr. Jazmyn Saavedra MONO # 0.5 103/ul Normal 0.3-0.8 [facility] Comment on above: Performed By: #### S EDR #### [facility] [address] [place] [address] Dr. Jazmyn Saavedra Monocytes/100 WBC (Bld) 11.9 % Normal 1.7-12.0 [facility] Comment on above: Performed By: #### S EDR #### [facility] [address] [place] [address] Dr. Jazmyn Saavedra NEUT # 1.9 103/ul Normal 1.4-6.5 [facility] Comment on above: Performed By: #### S EDR #### [facility] [address] [place] [address] Dr. Jazmyn Saavedra Neutrophils/100 WBC (Bld) 45.4 % Normal 43.0-75.0 [facility] Comment on above: Performed By: #### S EDR #### [facility] [address] [place] [address] Dr. Jazmyn Saavedra Platelet mean volume (Bld) [Entitic vol] 9.3 fL Critically low 9.5-13.5 [facility] Comment on above: Performed By: #### S EDR #### [facility] [address] [address] [address] Jazmyn Saavedra PLT 309 103/ul Normal 150-450 [facility] Comment on above: Performed By: #### S EDR #### [facility] [address] [address] [address] Jazmyn Saavedra RBC 4.07 106/ul Critically low 4.20-5.40 [facility] Comment on above: Performed By: #### S EDR #### [facility] [address] [address] [address] Jazmyn Saavedra WBC 4.2 103/ul Normal 4.0-11.0 [facility] Comment on above: Performed By: #### S EDR #### [facility] [address] [address] [address] Jazmyn Saavedra CRPon 08-25-2022 CRP [Mass/Vol] mg/L Normal <=1.0 [facility] Comment on above: Performed By: #### C RP, CMP, LIPID #### [facility] [address] [place] [address] Dr. Jazmyn Saavedra LIPID PROFILEon 08-25-2022 CHOL-HDL RATIO NORM SEE BELOW Normal [facility] Comment on above: Result Comment: 3.3 - 4.4 LOW RISK 4.4 - 7.1 AVERAGE RISK 7.1 - 11.0 MODERATE RISK >11.0 HIGH RISK Performed By: #### C RP, CMP, LIPID #### [facility] [address] [address] [address] Jazmyn Saavedra Cholesterol [Mass/Vol] 251 mg/dL Critically high <=200 [facility] Comment on above: Performed By: #### C RP, CMP, LIPID #### [facility] [address] [address] [address] Jazmyn Saavedra Cholesterol in HDL [Mass/Vol] 102 mg/dL Critically high 40-60 [facility] Comment on above: Performed By: #### C RP, CMP, LIPID #### [facility] [address] [address] [address] Jazmyn Saavedra Cholesterol in LDL [Mass/Vol] 135.0 mg/dL Normal [facility] Comment on above: Performed By: #### C RP, CMP, LIPID #### [facility] [address] [address] [address] Jazmyn Saavedra Cholesterol.total/ Cholesterol in HDL [Mass ratio] 2.5 {ratio} Normal [facility] Comment on above: Performed By: #### C RP, CMP, LIPID #### [facility] [address] [address] [address] Jazmyn Saavedra HDL NORMAL > or = 60 mg/dl - LO W CARDIOVASCULAR RISK <40 mg/dl - HIGH CARDIOVASCULAR RISK Normal [facility] Comment on above: Performed By: #### C RP, CMP, LIPID #### [facility] [address] [address] [address] Jazmyn Saavedra LDL CALC NORMAL SEE BELOW Normal [facility] Comment on above: Result Comment: <100 mg/dl OPTIMAL 100 - 129 mg/dl NEAR OR ABOVE OPTIMAL 130 - 159 mg/dl BORDERLINE HIGH 160 - 189 mg/dl HIGH >190 mg/dl VERY HIGH Performed By: #### C RP, CMP, LIPID #### [facility] [address] [place] [address] Dr. Jazmyn Saavedra Triglyceride [Mass/Vol] 70 mg/dL Normal <=150 [facility] Comment on above: Performed By: #### C RP, CMP, LIPID #### [facility] [address] [address] [address] Jazmyn Saavedra VLDL CALC 14.0 mg/dL Normal [facility] Comment on above: Performed By: #### C RP, CMP, LIPID #### [facility] [address] [address] [address] Jazmyn Saavedra PROF 14(COMP METB)on 022 Albumin [Mass/Vol] 3.9 g/dL Normal 3.4-5.0 [facility] Comment on above: Performed By: #### C RP, CMP, LIPID #### [facility] [address] [address] [address] Jazmyn Saavedra Albumin/Globulin [Mass ratio] 1.0 {ratio} Normal [facility] Comment on above: Performed By: #### C RP, CMP, LIPID #### [facility] [address] [address] [address] Jazmyn Saavedra ALP [Catalytic activity/Vol] 49 U/L Normal 46-116 [facility] Comment on above: Performed By: #### C RP, CMP, LIPID #### [facility] [address] [address] [address] Jazmyn Saavedra ALT [Catalytic activity/Vol] 17 U/L Normal 14-59 [facility] Comment on above: Performed By: #### C RP, CMP, LIPID #### [facility] [address] [address] [address] Jazmyn Saavedra Anion gap [Moles/Vol] 10.1 mmol/L Normal [facility] Comment on above: Performed By: #### C RP, CMP, LIPID #### [facility] [address] [address] [address] Jazmyn Saavedra AST [Catalytic activity/Vol] 19 U/L Normal 15-37 [facility] Comment on above: Performed By: #### C RP, CMP, LIPID #### [facility] [address] [address] [address] Jazmyn Saavedra Bilirubin [Mass/Vol] 0.5 mg/dL Normal 0.2-1.0 [facility] Comment on above: Performed By: #### C RP, CMP, LIPID #### [facility] [address] [address] [address] Jazmyn Saavedra Calcium [Mass/Vol] 9.3 mg/dL Normal 8.5-10.1 [facility] Comment on above: Performed By: #### C RP, CMP, LIPID #### [facility] [address] [address] [address] Jazmyn Saavedra Chloride [Moles/Vol] 103 mmol/L Normal 98-107 [facility] Comment on above: Performed By: #### C RP, CMP, LIPID #### [facility] [address] [address] [address] Jazmyn Saavedra CO2 [Moles/Vol] 30.1 mmol/L Normal 21.0-32.0 [facility] Comment on above: Performed By: #### C RP, CMP, LIPID #### [facility] [address] [address] [address] Jazmyn Saavedra Creatinine [Mass/Vol] 0.80 mg/dL Normal 0.55-1.02 [facility] Comment on above: Performed By: #### C RP, CMP, LIPID #### [facility] [address] [address] [address] Jazmyn Saavedra EGFR-AF MACANESE >60 Normal >=60 [facility] Comment on above: Performed By: #### C RP, CMP, LIPID #### [facility] [address] [address] [address] Jazmyn Saavedra EGFR-NON AF MACANESE >60 Normal >=60 [facility] Comment on above: Performed By: #### C RP, CMP, LIPID #### [facility] [address] [address] [address] Jazmyn Saavedra Globulin (S) [Mass/Vol] 4.1 g/dL Normal [facility] Comment on above: Performed By: #### C RP, CMP, LIPID #### [facility] [address] [address] [address] Jazmyn Saavedra Glucose [Mass/Vol] 92 mg/dL Normal 74-106 [facility] Comment on above: Performed By: #### C RP, CMP, LIPID #### [facility] [address] [address] [address] Jazmyn Saavedra Potassium [Moles/Vol] 4.2 mmol/L Normal 3.5-5.1 [facility] Comment on above: Performed By: #### C RP, CMP, LIPID #### [facility] [address] [address] [address] Jazmyn Saavedra Protein [Mass/Vol] 8.0 g/dL Normal 6.4-8.2 [facility] Comment on above: Performed By: #### C RP, CMP, LIPID #### [facility] [address] [place] [address] Dr. Jazmyn Saavedra Sodium [Moles/Vol] 139 mmol/L Normal 136-145 [facility] Comment on above: Performed By: #### C RP, CMP, LIPID #### [facility] [address] [place] [address] Dr. Jazmyn Saavedra Urea nitrogen [Mass/Vol] 20.0 mg/dL Critically high 7.0-18.0 [facility] Comment on above: Performed By: #### C RP, CMP, LIPID #### [facility] [address] [place] [address] Dr. Jazmyn Saavedra Urea nitrogen/Creatinin e [Mass ratio] 25.0 mg/mg Normal [facility] Comment on above: Performed By: #### C RP, CMP, LIPID #### [facility] [address] [place] [address] Dr. Jazmyn Saavedra SED RATE [facility] 2021 SED RATE 47 mm/hr Critically high <=30 [facility] Comment on above: Performed By: #### S EDR #### [facility] [address] [place] [address] Dr. Jazmyn Saavedra ASYMPTOMATIC COVID-19 ANTIGE Non 05-18-2022 EUA Statement SEE BELOW Normal [facility] Comment on above: Result Comment: This [...] sooner. Performed By: #### S EDR #### [facility] [address] [place] [address] Dr. Jazmyn Saavedra SARS-CoV-2 (COVID-19) RNA NILES+probe Ql (Unsp spec) Positive Critically abnormal NEGATIVE [facility] Comment on above: Result Comment: SARS -CoV-2 antigen present; does not rule out coinfection with other pathogens. Performed By: #### S EDR #### [facility] [address] [place] [address] Dr. Jazmyn Saavedra Covid-19 PCR ([facility])on SARS-CoV-2 (COVID-19) RNA NILES+probe Ql (Unsp spec) Detected Critically abnormal NOT DETECTED [facility] Comment on above: Result Comment: This test is not yet approved or cleared by the [place] FDA. When there are no FDA-approved or cleared tests available, and other criteria are met, FDA can make tests available under an emergency access mechanism called an Emergency Use Authorization (EUA). The EUA for this test is supported by the [place] of Health and Human Service's declaration that [...] used). Performed By: #### C VDTBH #### [facility] [address] [place] [address] Dr. Jazmyn BARLOW MULTI-CANCER PANELon 02-12-2021 RESULT Results to be mailed directly to physician's office by reference lab. Normal [facility] Comment on above: Result Comment: Test performed by YEN [address] [place] [address] [phone] No result expected. For billing and tracking purposes only. Performed By: #### 3 [id number] #### [address] Vital Signs Date Time Vital Sign Value Performing Clinician Facility 11-16-2023 11:39-0500 Body mass index (BMI) [Ratio] 24.96 kg/m2 Easton Jassi DO Work Phone: [facility] 11-16-2023 11:39-0500 Body weight 68.04 kg Easton Jassi DO Work Phone: [facility] 11-16-2023 11:39-0500 Diastolic blood pressure 72 mm[Hg] Easton Jassi DO Work Phone: [facility] 11-16-2023 11:39-0500 Systolic blood pressure 118 mm[Hg] Easton Jassi DO Work Phone: [facility] 03-03-2023 14:35-0400 Blood Pressure Location [facility] [place] 03-03-2023 14:35-0400 Diastolic blood pressure 68 mm[Hg] Joselo NILL [facility] [place] 03-03-2023 14:35-0400 Heart rate 68 /min Joselo NILL [facility] [place] 03-03-2023 14:35-0400 Respiratory rate 16 /min Joselo NILL [facility] [place] 03-03-2023 14:35-0400 Systolic blood pressure 114 mm[Hg] Joselo NILL [facility] [place] Encounters Encounter Date Encounter Type Care Provider Facility Start: 05-22-2024 End: 05-22-2024 ambulatory [facility] Start: 05-04-2024 End: 05-04-2024 ambulatory [facility] Start: 03-08-2024 End: 03-08-2024 ambulatory [facility] Start: 12-30-2023 End: 12-30-2023 ambulatory [facility] Start: 11-16-2023 End: 11-16-2023 ambulatory EASTON KEENE Not Available Start: 11-16-2023 End: 11-16-2023 Postop follow up visit related to original px Easton Keene DO Work Phone: [facility] Comment on above: Encounter for repeat Pap smear due to previous insuff cervical cells Start: 10-28-2023 End: 10-28-2023 ambulatory FELIX WHITNEY Not Available Start: 09-29-2023 End: 09-29-2023 ambulatory FELIX WHITNEY Not Available Start: 08-19-2023 End: 08-19-2023 ambulatory TOMAS CLINTON [facility] Start: 04-07-2023 End: 04-08-2023 ambulatory Joselo STARKS Facility:[facility] [place] Start: 04-07-2023 End: 04-07-2023 Patient encounter procedure Joselo STARKS [facility] [place] Start: 03-24-2023 End: 03-25-2023 ambulatory Joselo R GHISLAINEL Facility:[id number] Start: 03-03-2023 End: 03-04-2023 [facility]ulatory [facility] Start: 03-03-2023 End: 03-03-2023 Patient encounter procedure Joselo R NILL [facility] [place] Start: 02-18-2023 ambulatory Mariza Matty Facility:[facility] [place] Start: 02-12-2023 Encounter for genera l adult medical examination without abnormal findings MARIZA SILVIAY [facility] Start: 02-12-2023 End: 02-13-2023 ambulatory MARIZA WRIGHT Facility:[facility] Start: 02-05-2023 End: 02-06-[address] DOCTOR KELLOGG Facility:[facility] Start: 02-05-2023 End: 02-06-2023 Encounter for general adult medical examination without abnormal findings MARIZA HOCleopatra Facility:[facility] Start: 02-04-2023 End: 02-05-[address] IDA SOTO Facility:[facility] Start: 09-23-2022 End: 09-23-[address] RUTHANN CA . Facility:[facility] Start: 08-28-2022 End: 08-29-[address] DOCTOR KELLOGG Facility:[facility] Start: 08-25-2022 End: 08-26-[address] DOCTOR KELLOGG Facility:[facility] Start: 08-07-2022 End: 08-08-2022 ambulatory MARIZA HOY Facility:[facility] Start: 05-18-2022 End: 05-18-2022 ambulatory JACQUI BAUMANN Facility:[facility] Start: 05-12-2022 End: 05-12-2022 ambulatory JACQUI BAUMANN Facility:[facility] Procedures Date Procedure Procedure Detail Performing Clinician Start: 08-19-2023 Follow-up visit Follow-up TOMAS CLINTON Start: 03-24-2023 Colonoscopy aEston Keene DO Work Phone: Start: 03-24-2023 Colonoscopy Joselo SCANLONL Start: 03-24-2023 Esophagogastroduodenoscopy Joselo SCANLONL Start: 09-23-2022 Microscopic observation [Identifier] in Cervix by Cyto stain Easton Keene Pressi Work Phone: Start: 07-24-2015 Colonoscopy Joselo SCANLONL Start: 02-01-2007 Colonoscopy Joselo NILL Bilateral mastectomy Joselo SCANLONL Biopsy of breast Joselo GHISLAINE L section Joselo NIL L Excision of cervical intervertebral disc Joselo NILL Excision of lymph node Tony flori SCANLONL Comment on above: left inguinal Excision of salivary gland M marco SCANLONL Comment on above: x2 Granuloma (morpholog ic abnormality) Joselo GHISLAINEL Comment on above: x 2 History of radiofreq uency ablation operation for arrhythmia Joselo GHISLAINEL Total abdominal hyst erectomy with bilateral salpingo-oophorectomy Joselo STARKS Plan of Treatment Date Care Activity Detail Author Start: 03-24-2033 Screening for malign ant neoplasm of colon [facility] Start: 09-23-2027 Screening for malign ant neoplasm of cervix [facility] Start: 01-27-2025 Screening for malign ant neoplasm of colon FIT-DNA [facility] Start: 11-20-2024 End: 11-20-2024 Patient encounter procedure 11/20/2024 4:00 PM EST Office Visit [facility] [address] [place] [id number] Easton Keene, DO [address] [place], [place] [id number] [facility] Start: 06-04-2023 Influenza vaccination Influenza Vacc ine (#1) [facility] Start: 2008 Screening for malign ant neoplasm of breast Mammogram [facility] Start: 1968 Screening for malign ant neoplasm of colon [facility] Immunizations Immunization Date Immunization Notes Care Provider Fa cili 08-07-2022 SARS-CoV-2 (COVID-19 ) mRNA-1273 vaccine Joselo STARKS [facility] 01-01-2022 SARS-CoV-2 mRNA (mtncbinwhuz-ywlw-actrx se) vaccine Joselo STARKS [facility] 06-18-2021 SARS-CoV-2 (COVID-19 ) mRNA-1273 vaccine Joselo SCANLONL [facility] Comment on above: Result Comment: 2022: [id number] 10-30-2020 SARS-CoV-2 (COVID-19 ) mRNA-1273 vaccine Joselo SCANLONL [facility] 10-02-2020 SARS-CoV-2 (COVID-19 ) mRNA-1273 vaccine Joselo SCANLONL [facility] Payers Date Payer Category Payer Unknown BCBS BCBS [id number] [id number] 2022-Present [phone] [address] [place] [address] [id number] 2022 Unknown [id number] 2019 Unknown [id number] 1968 Unknown [id number] [id number] 1968 Unknown [id number] [id number] 1968 Unknown [id number] [id number] 1968 Unknown [id number] 2.16.840.1.361616.3.579.2.593 1968 Unknown [id number] 2.16.840.1.275144.3.579.2.593 1968 Unknown [id number] 2.16.840.1.602467.3.579.2.593 1968 Unknown [id number] 2.16.840.1.429652.3.579.2.593 1968 Unknown [id number] 2.16.840.1.513723.3.579.2.593 1968 Unknown [id number] 2.16.840.1.375434.3.579.2.593 1968 Unknown [id number] 2.16.840.1.163025.3.579.2.727 1968 Unknown [id number] 2.16.840.1.216786.3.579.2.727 1968 Unknown [id number] 2.16.840.1.877478.3.579.2.727 1968 Unknown [id number] 2.16.840.1.655805.3.579.2.1259 1968 Unknown [id number] 2.16.840.1.323723.3.579.2.1259 1968 Unknown [id number] [id number] 1959 Self-pay [id number] Unknown [id number] Social History Date Type Detail Facility Start: 03-03-2023 End: 09-24-2023 Tobacco smoking status Never smoked tobacco (finding) [facility] [place] Tobacco smoking status Never [facility] [place] Start: 09-24-2023 Sex Assigned At Female F [facility] Start: 10-28-2023 Alcohol intake Current drinke [...] Facility 03-03-2023 Functional Status N/A [facility] Clinical Notes 02-04-2023 to 05-22-2024 Easton Keene DO - 11/16/2023 11:20 AM EST Note Date & Type Note Facility 05-22-2024 Note [place] [facility] Note Reason for cardiology follow-up: A-fib 05/22/2024 Patient states that she has been doing well. She reports rare events of very brief palpitation without any other symptoms. She underwent 30-day event monitor. Otherwise she denies any chest pain shortness of breath at rest or with exertion. She denies orthopnea or paroxysmal nocturnal dyspnea or dizziness or leg edema. she denies snoring or sleepiness during the daytime. No smoking or alcohol consumption. She does not drink a lot of caffeine She is back on Plaquenil due to tiredness and joint pain, she is doing better 03/08/2024 Chief Complaint: Palpitation HPI: Teetee Hernandez is a 54 y.o. female with prior history of SVT status post ablation about 20 years ago at [facility]. History of pericarditis remotely. She has history of lupus/rheumatoid arthritis, hypothyroidism, and GERD. She presented to [facility] ED 02/05/[address]24 for palpitations and SOB. Dr. Correia was consulted over the phone and he recommended against anticoagulation since her ChadsVasc is 1. She has been on low dose aspirin since SVT ablation 20+ years ago. Had an episode of afib back then as well after she was given adenosine to break the SVT. On 02/05/2024 she woke up in the morning and while she was eating breakfast she started having fluttering associated with little light headedness and later little chest pressure went to her shoulder and neck and later she became diaphoretic therefore she decided to go to the emergency room. She was found to be in atrial fibs/flutter with rapid ventricular rate. The episode lasted for about 3 to 4 hours. Before she was given any medication she converted back to normal sinus rhythm. As mentioned above Dr. Correia/cardiology on-call was consulted over the phone he did not advise anticoagulation due to low [id number] score of 1. Few weeks ago she had similar shorter episode but at that time she was very sick with nausea and vomiting and she was dehydrated. In the hospital it was recommended to take metoprolol 12.5 mg twice daily as needed for fast heart rate but she did not take it at all Since then she has been having sometimes a little very brief episodes of fluttering with little short of breath. She was given a 7-day event monitor which does not show A-fib but it shows couple episodes of sinus tachycardia. Other than the above she is active. She denies any chest pain at rest or with exertion. She feels little short of breath with exertion. She does fast walking regularly and she exercise on elliptical. She denies orthopnea or paroxysmal nocturnal dyspnea. She denies legs edema or leg discomfort on exertion. She never been a smoker. She denies alcohol or illicit drugs. She used to be on Plaquenil which was stopped recently due to vision problem. Cardiology ROS: All systems were reviewed and they were negative except for the positive findings noted above in the history Past Medical History She has a past medical history of Varicose veins of lower extremity with inflammation, with ulcer of ankle with necrosis of muscle (CMS/HCC), Abnormal ECG, Arrhythmia, Atrial fibrillation (CMS/HCC), Cancer (CMS/HCC), History of pericarditis, Hyperlipidemia, Lupus (CMS/HCC), and RA (rheumatoid arthritis) (CMS/HCC). Surgical History She has a past surgical history that includes Ablation of dysrhythmic focus; Hysterectomy; section, classic; Cervical fusion; and Mastectomy. Social History She reports that she has never smoked. She has never used smokeless tobacco. She reports current alcohol use. She reports that she does not currently use drugs. Family History Family History Problem Relation Name Age of Onset Dementia Mother Diabetes Mother Other (CABG) Mother 59 Coronary artery disease Mother Atrial fibrillation Father Coronary artery disease Father Stroke Father 56 Heart attack Father 62 Allergies Sulfa (sulfonamide antibiotics), Adhesive tape-silicones, Benzoyl peroxide, Sulfamethoxazole-trimethoprim, and Adhesive Medications Current Outpatient Medications: aspirin 81 mg EC tablet, Take by mouth in the morning., Disp: , Rfl: calcium carbonate 600 mg calcium (1,500 mg) tablet, Take by mouth in the morning., Disp: , Rfl: cevimeline (Evoxac) 30 mg capsule, Take 1 capsule (30 mg) by mouth in the morning, at noon, and at bedtime., Disp: 270 capsule, Rfl: 3 cholecalciferol (Vitamin D-3) 25 MCG (1000 UT) capsule, Take 1 capsule by mouth., Disp: , Rfl: hydroxychloroquine (PlaqueniL) 200 mg tablet, Take 1.5 tablets (300 mg) by mouth in the morning., Disp: 45 tablet, Rfl: 1 levothyroxine (Synthroid, Levoxyl) 100 mcg tablet, Take 1 microgram every day by oral route for 90 days., Disp: , Rfl: liothyronine (Cytomel) 5 mcg tablet, Take 1 tablet every day by oral route for 90 days., Disp: , Rfl: magnesium oxide 500 mg capsule, Take 1 each by mouth in the morning., Disp: , Rfl: (more content not included)... [facility] 05-04-2024 Note Attestation signed by Tomas Clinton MD at 05/04/2024 8:26 PM GC: I saw this patient. I personally performed the critical/rosales portions that determines the level of service. I was directly involved in the management and treatment plan of the patient. I reviewed note and agree with the documentation Subjective Patient ID: Teetee Hernandez is a 54 y.o. female who presents for follow up visit. HPI She's now back on Plaquenil as she was more tired while off it, and ophthalmology said her vision issues aren't due to Plaquenil. Fatigue is improving. Her joint pain and headaches are improving, too. She had to stop cevimeline due to excessive saliva and is instead using OTC saliva. Review of Systems Constitutional: Positive for fatigue. [...] numbness. Negative for light-headedness and headaches. Objective There were no vitals taken for this visit. Physical Exam Constitutional: Appearance: Normal appearance. HENT: Head: Normocephalic and atraumatic. Mouth/Throat: Mouth: Mucous membranes are moist. Cardiovascular: Rate and Rhythm: Normal rate and regular rhythm. Heart sounds: Normal heart sounds. Pulmonary: Effort: Pulmonary effort is normal. Musculoskeletal: General: No swelling or tenderness. Normal range of motion. Neurological: General: No focal deficit present. Mental Status: She is alert and oriented to person, place, and time. There is currently no information documented on the homunculus. Go to the Rheumatology activity and [facility]. Assessment/Plan 54 yo F with seropsositive (+RF) Rheupus (controlled with Xeljanz) presented today for follow up. 1. Rheupus (+RF, synovitis) - She has combination of SLE and RA. Not a candidate for TNF inhibitors - She used arava before and it was not effective. Did not tolerate MTX nor had effect - Rinvoq was ineffective and she's prefer to be back on Xeljanz which she's tried previously. She was provided with samples today - On Xeljanz. We provided her with Xeljanz samples - Restarted Plaquenil 300 mg daily with ophthalmology approval as vision issues not likely due to this medication, will refill on 05/04/24 - CBC, CMP Q3 months, lipid panel Q6 months - on 02/25/24, WBC low at 3.3, RBC low at 4.02, protein high at 8.3, cholesterol high at 265, HDL high at 103, remainder of CBC, CMP, lipid panel ok - Will also obtain lupus labs including CBC, CMP, and lipid panel prior to next appointment 2. 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 - She had prior hx bullous lesions over the elbows which improved with a short course of steroids. - The most recent issue has been worsening joint pain. - Currently disease is in remission clinically, no malar rash, no pleuritis but she does have occasional oral ulcers - Restarted Plaquenil 300 mg daily with ophthalmology approval as vision issues not likely due to this medication, will refill on 05/04/24 3. Secondary Sjogren's syndrome. - + SSA and SSB, + RF, dry eyes and dry mouth. - No lymphadenopathy, no B symptoms. No indication of lymphoma. SPEP normal. - Failed restasis eye drop which are ineffective, cevimeline due to excessive saliva - On OTC saliva - She is seeing ophthalmology. She reported having dry eye that is resistant to treatment. I asked her to discuss with ophthalmology if she is candidate for tear duct plug RTC in a few months Seen by Dr Clinton and Dr Matamoros [facility] 03-08-2024 Note [facility] Note Reason for cardiology consult: Ref from Dr. Mariza Wright for afib. Chief Complaint: Palpitation HPI: Teetee Hernandez is a 54 y.o. female with prior history of SVT status post ablation about 20 years ago at [facility]. History of pericarditis remotely. She has history of lupus/rheumatoid arthritis, hypothyroidism, and GERD. She presented to [facility] ED 02/05/[address]24 for palpitations and SOB. Dr. Correia was consulted over the phone and he recommended against anticoagulation since her ChadsVasc is 1. She has been on low dose aspirin since SVT ablation 20+ years ago. Had an episode of afib back then as well after she was given adenosine to break the SVT. On 02/05/2024 she woke up in the morning and while she was eating breakfast she started having fluttering associated with little light headedness and later little chest pressure went to her shoulder and neck and later she became diaphoretic therefore she decided to go to the emergency room. She was found to be in atrial fibs/flutter with rapid ventricular rate. The episode lasted for about 3 to 4 hours. Before she was given any medication she converted back to normal sinus rhythm. As mentioned above Dr. Correia/cardiology on-call was consulted over the phone he did not advise anticoagulation due to low [id number] score of 1. Few weeks ago she had similar shorter episode but at that time she was very sick with nausea and vomiting and she was dehydrated. In the hospital it was recommended to take metoprolol 12.5 mg twice daily as needed for fast heart rate but she did not take it at all Since then she has been having sometimes a little very brief episodes of fluttering with little short of breath. She was given a 7-day event monitor which does not show A-fib but it shows couple episodes of sinus tachycardia. Other than the above she is active. She denies any chest pain at rest or with exertion. She feels little short of breath with exertion. She does fast walking regularly and she exercise on elliptical. She denies orthopnea or paroxysmal nocturnal dyspnea. She denies legs edema or leg discomfort on exertion. She never been a smoker. She denies alcohol or illicit drugs. She used to be on Plaquenil which was stopped recently due to vision problem. Cardiology ROS: All systems were reviewed and they were negative except for the positive findings noted above in the history Past Medical History She has a past medical history of Varicose veins of lower extremity with inflammation, with ulcer of ankle with necrosis of muscle (CMS/HCC), Abnormal ECG, Arrhythmia, Atrial fibrillation (CMS/HCC), Cancer (CMS/HCC), History of pericarditis, Hyperlipidemia, Lupus (CMS/HCC), and RA (rheumatoid arthritis) (CMS/HCC). Surgical History She has a past surgical history that includes Ablation of dysrhythmic focus; Hysterectomy; section, classic; Cervical fusion; and Mastectomy. Social History She reports that she has never smoked. She has never used smokeless tobacco. She reports current alcohol use. She reports that she does not currently use drugs. Family History Family History Problem Relation Name Age of Onset Dementia Mother Diabetes Mother Other (CABG) Mother 59 Coronary artery disease Mother Atrial fibrillation Father Coronary artery disease Father Stroke Father 56 Heart attack Father 62 Allergies Sulfa (sulfonamide antibiotics), Adhesive tape-silicones, Benzoyl peroxide, Sulfamethoxazole-trimethoprim, and Adhesive Medications Current Outpatient Medications: aspirin 81 mg EC tablet, Take by mouth in the morning., Disp: , Rfl: calcium carbonate 600 mg calcium (1,500 mg) tablet, Take by mouth in the morning., Disp: , Rfl: cholecalciferol (Vitamin D-3) 25 MCG (1000 UT) capsule, Take 1 capsule by mouth., Disp: , Rfl: levothyroxine (Synthroid, Levoxyl) 100 mcg tablet, Take 1 microgram every day by oral route for 90 days., Disp: , Rfl: liothyronine (Cytomel) 5 mcg tablet, Take 1 tablet every day by oral route for 90 days., Disp: , Rfl: magnesium oxide 500 mg capsule, Take 1 each by mouth in the morning., Disp: , Rfl: pantoprazole (ProtoNix) 40 mg EC tablet, in the evening., Disp: , Rfl: tofacitinib ER (Xeljanz XR) 11 mg tablet extended release 24 hr, 11 mg in the morning. Do not crush, chew or split. Swallow whole., Disp: , Rfl: cevimeline (Evoxac) 30 mg capsule, Take 1 capsule (30 mg) by mouth in the morning, at noon, and at bedtime., Disp: 270 capsule, Rfl: 3 methylPREDNISolone (Medrol) 4 mg tablet, TAKE 1/2 TABLET BY MOUTH EVERY DAY NEEDED, Disp: 30 tablet, Rfl: 2 triamcinolone (Kenalog) 0.1 % oral paste, Use in the mouth or throat if needed for mucositis., Disp: 5 g, Rfl: 3 Last Recorded Vitals Visit Vitals BP 122/72 (BP Location: Left arm, Patient Position: Sitting) Pulse 88 Ht 1.664 m (5' 5.5 ) Wt 67.6 kg (149 lb) LMP (LMP Unknown) SpO2 97% BMI 24.42 kg/m??? (more content not included)... [facility] 12-30-2023 Note Subjective Patient ID: Teetee Hernandez is a 53 y.o. female who presents for follow up visit HPI She reported having excessive fatigue after discontinuing hydroxychloroquine due to concerns about Plaquenil retinal toxicity with reduced peripheral vision. However this has not been confirmed. She has been involving multiple joints in the hands and wrists that is continuous. It is much better compared to when she was using Rinvoq. She is experience profound fatigue and arthralgias. [...] light-headedness and headaches. Objective Visit Vitals Pulse 74 Resp 16 Physical Exam Constitutional: Appearance: Normal [...] up 1. Rheupus (+RF, synovitis). on Xeljanz only. She was using Plaquenil before but this was discontinued due to concerns about reduced peripheral vision. She is seeing ophthalmology. She reported having dry eye that is resistant to treatment. I asked her to discuss with ophthalmology if she is candidate for tear duct plug. We provided her with Xeljanz samples. She has combination of SLE and RA. [...] + RF, Dry eyes and dry mouth. Discussed tear duct plug. Failed Restasis. No lymphadenopathy, no B symptoms. No indication of lymphoma. SPEP normal. She tried restasis eye drop which are ineffective Will start cevimeline 30 mg TID for more symptom control; side effects including increased [facility] 11-16-2023 History of Present illness Narrative Reason for Appointment: Patient ID: Teetee Hernandez is a 53 y.o. female who presents [...] 2002 C5 SECTION, LOW TRANSVERSE x2 COLONOSCOPY 2014 FINE NEEDLE ASPIRATION 1985 of breast cyst HERNIA REPAIR inguinal LYMPH NODE BIOPSY Left 2005 inguinal lymph node MASTECTOMY Bilateral 2013 with [...] Easton Keene DO documented in this encounter [facility] 08-19-2023 Note Attestation signed by Tomas Clinton MD at 08/19/2023 8:41 PM As the teaching physician, I have personally performed or re-performed the history of present illness, physical exam and medical decision making activities of the encounter and verified the medical student's documentation. I made pertinent changes as necessary to ensure accurate documentation. Subjective Patient ID: Teetee Hernandez is a 53 y.o. female who presents [...] is currently no [facility] Go to the Rheumatology activity and [...] past 36 hour(s)). No follow-ups on file. [facility] 03-03-2023 Note Chief Complaint consultation [...] History of pericar (more content not included)... [facility] Comment on above: Result Comment: Elec tronically Signed By: RAUDEL PUENTES, Joselo Barrera\Date and Time Signed: 03/03/23 16:35 EDT 02-04-2023 Note PROCEDURE: XR SACROI LIAC JOINT 3 VIEWS COMPARISON: None. HISTORY: Rheumatoid factor positive rheumatoid arthritis FINDINGS: SACRUM: No fracture, disruption of the sacral ala line, or cortical irregularity. COCCYX: No fracture or suspicious alignment. SOFT TISSUES: No widening of the sacroiliac joints. No radiopaque foreign body. OTHER: IMPRESSION: No significant abnormality Electronically authenticated by: IDA SOTO Date: 2023-02-04 18:18 [facility] 02-04-2023 Note PROCEDURE: XR HIP LT 2 3V WO PELVIS COMPARISON: None. HISTORY: Rheumatoid factor positive rheumatoid arthritis FINDINGS: BONES:No acute fracture or dislocation. No significant degenerative changes. Heterotopic ossification superior to the greater trochanter SOFT TISSUES:Negative. No visible soft tissue swelling. EFFUSION:None visible. OTHER: Negative. IMPRESSION: No evidence of erosive or inflammatory arthritis Electronically authenticated by: IDA SOTO Date: 2023-02-04 18:17 [facility] 02-04-2023 Note PROCEDURE: XR FOOT R T MIN 3 VIEWS COMPARISON: None. HISTORY: Rheumatoid factor positive rheumatoid arthritis FINDINGS: BONES:No acute fracture or dislocation. Mild enthesopathic spurring of the calcaneus at the Achilles insertion. SOFT TISSUES:Negative. No visible soft tissue swelling. EFFUSION:None visible. OTHER: Negative. IMPRESSION: Mild calcaneal Achilles enthesopathy Electronically authenticated by: IDA SOTO Date: 2023-02-04 18:16 [facility] Evaluation + Plan note No data available for this section General Surgery [place] Evaluation note Diagnosis Encounter for repeat Pap smear due to previous insuff cervical cells [facility] No data available for this section General Surgery [place] Progress note No data available for this section General Surgery [place] Summary Purpose Family History No Family History Records FoundNo Family History Records FoundNo Family History Records FoundNo Family History Records FoundNo Family History Records Found Advance Directives No Advanced Directives Records FoundNo Advanced Directives Records FoundNo Advanced Directives Records FoundNo Advanced Directives Records FoundNo Advanced Directives Records Found Additional Source Comments INFORMATION SOURCE (unrecogn ized section and content) DATE CREATED AUTHOR 03/16/2021 [facility] DATE CREATED AUTHOR AUTHOR'S ORGANIZ ATION 02/15/[address] [facility] DATE CREATED AUTHOR AUTHOR'S ORGANIZ ATION 04/08/2023 [facility] DATE CREATED AUTHOR AUTHOR'S ORGANIZ ATION 11/17/2023 [facility] EPIC DATE CREATED AUTHOR AUTHOR'S ORGANSTEPHANIE ATION 08/11/2024 [facility] Patient Care team informatio n (unrecognized section and content) Nematologist Relationship Specialty Start Date End Date Mariza Wright MD [address] [place] [address] PCP - General 09/27/23 Reason for Visit [...] BE BASED ON THE PRIMARY CLINICAL RECORDS. [employer] provides no warranty or guarantee of the accuracy or completeness of information in this document.
[2024-08-30 07:36] LABS: Eosinophils Absolute Auto 0.1 10^3/uL (0.0-0.7); Eosinophils Percent Auto 1.3 % (0.9-7.0); Hematocrit 38.7 % (36.0-48.0); Hemoglobin 12.4 g/dL (12.0-16.0); Immature Granulocytes Abs Auto 0.01 10^3/uL (0.00-0.03); Immature Granulocytes Pct Auto 0.3 % (0.0-0.5); Lymphocytes Absolute Auto 0.9 10^3/uL (1.2-3.8); Lymphocytes Percent Auto 23.6 % (20.5-60.0); Mean Corpuscular Hemoglobin 30.4 pg (26.7-34.0); Mean Corpuscular Volume 94.9 fL (81.0-99.0); Mean Platelet Volume 9.8 fL (9.5-13.5); Monocytes Absolute Auto 0.6 10^3/uL (0.3-0.8); Monocytes Percent Auto 14.2 % (1.7-12.0); Neutrophils Absolute Auto 2.4 10^3/uL (1.4-6.5); Neutrophils Percent Auto 59.6 % (43.0-75.0); Platelet Count 345 10^3/uL (150-450); Red Blood Count 4.08 10^6/uL (4.20-5.40); Red Cell Distribution Width 13.2 % (11.0-15.0); White Blood Count 3.9 10^3/uL (4.0-11.0)
[2024-08-30 07:39] LABS: Erythrocyte Sedimentation Rate 29 mm/hr (<=30)
[2024-08-30 07:39] LABS: Bilirubin Urine NEGATIVE (NEGATIVE); Blood Urine NEGATIVE (NEGATIVE); Clarity Urine CLEAR (CLEAR); Color Urine YELLOW (YELLOW); Glucose Urine UA NEGATIVE (NEGATIVE); Ketones Urine NEGATIVE (NEGATIVE); Leukocyte Esterase Urine NEGATIVE (NEGATIVE); Nitrite Urine NEGATIVE (NEGATIVE); Protein Urine TRACE mg/dL (NEG/TRACE); Specific Gravity Urine >=1.030 (1.005-1.025); Urobilinogen Urine 0.2 EU/dL (0.2-1.0)
[2024-08-30 07:50] LABS: Alanine Aminotransferase 39 U/L (14-59); Albumin Globulin Ratio 0.9; Albumin Level 3.5 g/dL (3.4-5.0); Alkaline Phosphatase 60 U/L (46-116); Anion Gap 11.7; Aspartate Amino Transferase 24 U/L (15-37); BUN Creatinine Ratio 16.3; Bilirubin Total 0.5 mg/dL (0.2-1.0); Calcium 8.8 mg/dL (8.5-10.1); Carbon Dioxide 28.2 mmol/L (21.0-32.0); Chloride 103 mmol/L (98-107); Chol HDL Ratio 2.3; Cholesterol 242 mg/dL (<=200); Creatine Kinase 246 U/L (26-192); Estimated GFR (African America >60 (>=60 mL/min/1.73m^2); Estimated GFR (Non-African Ame 59 (>=60 mL/min/1.73m^2); Glucose 79 mg/dL (74-106); HDL Cholesterol 106 mg/dL (40-60); Potassium 3.9 mmol/L (3.5-5.1); Sodium 139 mmol/L (136-145); Total Protein 7.5 g/dL (6.4-8.2); Triglycerides 85 mg/dL (<=150)
[2024-08-30 07:54] LABS: C Reactive Protein <0.50 mg/dL (<=0.50)
[2024-08-30 07:59] LABS: Protein Creatinine Ratio Urine 0.12; Total Protein Urine Random 28.3 mg/dL (<=11.9)
[2024-08-31 04:07] LABS: Complement C3, Serum 114 mg/dL (82-167); Complement C4, Serum 17 mg/dL (12-38)
[2024-09-01 12:08] LABS: Anti-dsDNA Antibodies <1 IU/mL (0-9)
== END 2024-08-30 23:59 | disposition home or self-care (01) ==
LOC: RAD 07:19
PROVIDERS: PCP Family Medicine; Visit Provider Internal Medicine
DX: M32.19 Other organ or system involvement in systemic lupus erythematosus (principal); Z13.220 Encounter for screening for lipoid disorders; Z13.6 Encounter for screening for cardiovascular disorders
CPT/HCPCS: 36415; 80053; 80061; 81003; 82550; 82570; 84156; 85025; 85652; 86140; 86160; 86225

== ENCOUNTER 2024-09-14 08:02 | Outpatient (OUT) | payer BC, SELFPAY ==
--- NOTE | 2024-09-14 08:40 | XR_ITS ---
The [address] [address] Patient Name: MANOHAR DUDLEY MRN: [id number] date: 1970 Sex: F Assigned Patient Location: [facility] Current Patient Location: Accession/Order Number: [id number] Exam Date: 09/14/2024 08:20 Report Date: 09/15/2024 07:17 At the request of: GERTRUDE CLINTON Procedure: XR DEXA axial skeleton EXAMINATION: XR DEXA axial skeleton, 09/14/2024 8:20 AM EST HISTORY: Osteopenia Of Lumbar Spine COMPARISON: 2021, 2019, 2017, 2015. TECHNIQUE: Dual-energy X-ray absorptiometry (DEXA) bone density study performed for the axial skeleton. FINDINGS: Bone mineral density of the lumbar spine L2-L4 measures 1.151 g/sq cm. T score -0.4. Normal Lowest bone mineral density left femoral neck measuring 0.918 g/sq cm. T score -0.9. Normal XR/XR DEXA axial skeleton IMPRESSION: Normal bone mineral density 10 year fracture risk not reported because T score is at or above -1.0 Pharmacologic treatment recommendations * No uniform recommendation applies to all patients. Management plans must be individualized. * Consider initiating pharmacologic treatment in postmenopausal women and men >= 50 years of age who have the following: Primary fracture prevention: * T-score <= - 2.5 at the femoral neck, total hip, lumbar spine, 33% radius (some uncertainty with existing data) by DXA. * Low bone mass (osteopenia: T-score between - 1.0 and - 2.5) at the femoral neck or total hip by DXA with a 10-year hip fracture risk >= 3% or a 10-year major osteoporosis-related fracture risk >= 20% (i.e., clinical vertebral, hip, forearm, or proximal humerus) based on the [place]-adapted FRAXregistered model. Secondary fracture prevention: * Fracture of the hip or vertebra regardless of BMD [4, 5]. * Fracture of proximal humerus, pelvis, or distal forearm in persons with low bone mass (osteopenia: T-score between - 1.0 and - 2.5). The decision to treat should be individualized in persons with a fracture of the proximal humerus, pelvis, or distal forearm who do not have osteopenia or low BMD [12, 13]. Kari MS, Stephanie SL, Indigo KL, Bennie EM, Sky KG, AJ, Brittanie ES. The clinician's guide to prevention and treatment of osteoporosis. Osteoporos Int. 2021;33(10):6619-3125. doi: 10.1007/t52809-774-69420-k. Epub 2021Jan 29. Erratum in: Osteoporos Int. 2021Apr 30;: PMID: [id number]; PMCID: [id number]. Electronically authenticated by: IDA SOTO Date: 09/15/2024 07:17
== END 2024-09-14 08:03 | disposition home or self-care (01) ==
LOC: RAD 08:02
PROVIDERS: PCP Family Medicine; Visit Provider Internal Medicine
DX: M05.7A Rheumatoid arthritis with rheumatoid factor of other specified site without organ or systems involvement (principal); M85.88 Other specified disorders of bone density and structure, other site
CPT/HCPCS: 77080

== ENCOUNTER 2024-11-23 20:11 | Outpatient (REF) | payer BC, SELFPAY ==
--- OUTSIDE RECORDS SUMMARY | 2024-11-23 20:14 | XMS_ITS | CCD ---
Author Organization [facility] Care Team Providers Care Foot And Ankle Surgeon Name Role Phone LIBBY WRIGHTLAS Consulting Unavailable HOY, MARIZA Primary Care Unavailable HOY, MARIZA Attending Unavailable HOY, MARIZA Admitting Unavailable PASTOR, JACQUI Consulting Unavailable HOY, MARIAZ Primary Care Unavailable PASTOR, JACQUI Attending Unavailable [...] Care Unavailable PASTOR JACQUI Attending Unavailable PASTOR, JAQCUI Admitting Unavailable Hoy, Mariza Primary Care Physician [phone] Mariza Wright Referring Unavailable Joselo STARKS Attending Unavailable Joselo STARKS Attending Unavailable Joselo STARKS Attending Unavailable Mariza Wright MD Primary Care Provider [phone] FELIX WHITNEY Attending Unavailable FELIX WHITNEY Attending Unavailable EASTON KEENE Attending Unavailable TODD RENDON Attending Unavailable ALTOROK, NEZAM I Attending Unavailable JULIETA SAMVANNA Attending Unavailable ALTOROK, NEZAM I Attending Unavailable ALTOROK, NEZAM I Attending Unavailable Allergies Allergy Classification Reported Allergen(s) Allergy Type Date of Onset Reaction(s) Facility (2 sources) Benzoyl Peroxide; Translations: [BENZOYL PEROXIDE] Drug Allergy 07-22-20 15 [facility] (1 source) Desonide Drug Allergy 04-05-20 13 [facility] (1 source) Sulfonamides (Antibiotic) Drug allergy (disorder) 04-05-20 13 [facility] (1 source) Misc-Other; Translations: [Misc-Other] Propensity to adverse reactions (disorder) 07-22-20 15 [facility] (3 sources) Sulfonamides (Antibiotic); Translations: [sulfa drugs] Drug allergy Discoloration of skin (finding) [facility] [place] (1 source) Benzoyl Peroxide Drug Allergy 09-20-20 23 [facility] (2 sources) Sulfamethoxazole / Trimethoprim; Translations: [SULFAMETHOXAZOLE-T RIMETHOPRIM] Drug Allergy 02-02-20 23 Rash [facility] (1 source) Sulfonamides (Antibiotic) Drug Allergy 09-20-20 23 [facility] Healthcare Work Phone: (1 source) Wound Dressing Adhesive Drug Allergy 09-21-20 14 Unknown [facility] (1 source) Adhesive agent; Translations: [ADHESIVE] Propensity to adverse reactions to drug (disorder) 09-21-20 14 [facility] (1 source) Sulfonamides (Antibiotic); Translations: [SULFA (SULFONAMIDE ANTIBIOTICS)] Propensity to adverse reactions to drug (disorder) 07-31-20 14 [facility] (1 source) ADHESIVE TAPE-SILICONES; Translations: [ADHESIVE TAPE-SILICONES] Propensity to adverse reactions to drug (disorder) 10-07-19 22 [facility] Medications Current Medications Medication Drug Class(es) [...] screening for respiratory tuberculosis] Onset: 2 Episodic Malaise and fatigue (2 sources) Other fatigue; Translations: [Other fatigue] Onset: 5 Episodic Osteoarthritis (4 sources) Primary osteoarthritis, right ankle and foot; Translations: [Primary osteoarthritis, left ankle and foot] Onset: 5 Chronic Other circulatory disease (2 sources) Raynaud's [...] Systemic lupus erythematosus and connective tissue disorders (10 sources) Sjogren's syndrome; Translations: [Systemic lupus erythematosus] [...] 03-08-2024 Episodic Other aftercare (4 sources) Other senior care (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; Translations: [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] Onset: 08-25-2022 Episodic Other bone disease and musculoskeletal deformities (4 sources) Other specified disorders of bone density and structure, other site; Translations: [OTH D/O BONE DEN STRUCT OTH SITE] Onset: 08-28-2022 Episodic Other screening for suspected conditions (not mental disorders or infectious disease) (9 sources) Encounter for screening for malignant neoplasm of cervix; Translations: [Patient encounter status] Onset: 09-23-2022 Episodic Residual codes; unclassified (2 sources) Other specified postprocedural states; Translations: [Other specified postprocedural states] Onset: 05-22-2024 Episodic Unclassified (1 source) RHEU ARTH R [...] site without organ or systems involvement] Onset: 12-30-2023 Results Test Name Value Interpretation Reference Range Facility Follow-Upon 10-19-2024 Follow-Up [id number] Yamileth Hernandez 1970 F Date Provider Department Center 10/19/2024 TOMAS ROBERTO I [facility] Family History Problem Relation Age of Onset Dementia Mother Diabetes Mother Other Mother 59 Coronary artery disease Mother Atrial fibrillation Father Coronary artery disease Father Stroke Father 56 Heart attack Father 62 Family Status - Relation Status Age at Mother Alive Father Alive Level of Service:40534 CT OFFICE/OUTPATIENT ESTABLISHED MOD MDM 30 MIN () Reason for Visit and Comments: Follow-up [644850] - Extreme tiredness Normal [facility] 08-09-2024 Refill [id number] Yamileth Hernandez 1970 F Date Provider Department Center 08/09/2024 215-TOMAS CL[place] [facility] Family History Problem Relation Age of Onset Dementia Mother Diabetes Mother Other Mother 59 Coronary artery disease Mother Atrial fibrillation Father Coronary artery disease Father Stroke Father 56 Heart attack Father 62 Family Status - Relation Status Age at Mother Alive Father Alive Reason for Visit and Comments: Med Refill [340022] - Patient called for refill: triamcinolone (Kenalog) 0.1 % oral paste use in mouth or throat if needed for mucositis/ methylPREDNISolone (Medrol) 4 mg tablet take 1 tablet by mouth in morning take 1/2 tablet by mouth everyday as needed. Please advise. Thanks! [facility] 36on 08-01-2024 36 Called and left deta iled message for patient [facility] 08-01-2024 Refill [id number] Yamileth Hernandez 1970 F Date Provider Department Center 08/01/2024 215TOMAS FRANCO I [facility] Family History Problem Relation Age of Onset Dementia Mother Diabetes Mother Other Mother 59 Coronary artery disease Mother Atrial fibrillation Father Coronary artery disease Father Stroke Father 56 Heart attack Father 62 Family Status - Relation Status Age at Mother Alive Father Alive Reason for Visit and Comments: Med Refill [[id number]] [facility] Orders Onlyon 07-28-2024 Orders Only [id number] Yamileth Hernandez 1970 F Date Provider Department Center 07/28/2024 215TOMAS FRANOC I [facility] Family History Problem Relation Age of Onset Dementia Mother Diabetes Mother Other Mother 59 Coronary artery disease Mother Atrial fibrillation Father Coronary artery disease Father Stroke Father 56 Heart attack Father 62 Family Status - Relation Status Age at Mother Alive Father Alive [facility] 36on 07-26-2024 36 Patient called jus gonzalez if you can put in an order for a DEXA scan for her. She stated that she needed a refill for medrol and triamcinolone. [facility] Telephoneon 07-26-2024 Telephone [id number] Yamileth Hernandez 1970 F Date Provider Department Center 07/26/2024 TOMAS ROBERTO I [facility] Family History Problem Relation Age of Onset Dementia Mother Diabetes Mother Other Mother 59 Coronary artery disease Mother Atrial fibrillation Father Coronary artery disease Father Stroke Father 56 Heart attack Father 62 Family Status - Relation Status Age at Mother Alive Father Alive Reason for Visit and Comments: Request For Order(s) [706] [facility] 06-14-2024 Refill [id number] Yamileth Hernandez 1970 Date Provider Department Center 06/14/2024 [id number] COOPER [facility] Family History Problem Relation Age of Onset Dementia Mother Diabetes Mother Other Mother 59 Coronary artery disease Mother Atrial fibrillation Father Coronary artery disease Father Stroke Father 56 Heart attack Father 62 Family Status - Relation Status Age at Mother Alive Father Alive Reason for Visit and Comments: Med Refill [[id number]] [facility] Office Visiton 05-22-2024 Follow-up visit [id number] Yamileth Hernandez 1970 Date Provider Department Center 05/22/2024 [id number] RENDON BRANDON Samuels [facility] Family History Problem Relation Age of Onset Dementia Mother Diabetes Mother Other Mother 59 Coronary artery disease Mother Atrial fibrillation Father Coronary artery disease Father Stroke Father 56 Heart attack Father 62 Family Status - Relation Status Age at Mother Alive Father Alive Level of Service:04480 CT OFFICE/OUTPATIENT ESTABLISHED LOW MDM 20 MIN Reason for Visit and Comments: Atrial Fibrillation [80] [facility] Follow-Upon 05-04-2024 Follow-Up [id number] Yamileth Hernandez 1970 F Date Provider Department Center 05/04/2024 FaisalTOMAS FRANCO I [facility] Family History Problem Relation Age of Onset Dementia Mother Diabetes Mother Other Mother 59 Coronary artery disease Mother Atrial fibrillation Father Coronary artery disease Father Stroke Father 56 Heart attack Father 62 Family Status - Relation Status Age at Mother Alive Father Alive Level of Service:42394 CT OFFICE/OUTPATIENT ESTABLISHED MOD MDM 30 MIN () Reason for Visit and Comments: Follow-up [[id number]] [facility] Office Visiton 03-08-2024 Follow-up visit [id number] Yamileth Hernandez 1970 F Date Provider Department Center 03/08/2024 [id number] ZAMUDIO Family History Problem Relation Age of Onset Dementia Mother Diabetes Mother Other Mother 59 Coronary artery disease Mother Atrial fibrillation Father Coronary artery disease Father Stroke Father 56 Heart attack Father 62 Family Status - Relation Status Age at Mother Alive Father Alive Level of Service:53211 CT OFFICE/OUTPATIENT NEW MODERATE MDM 45 MINUTES [facility] Follow-Upon 12-30-2023 Follow-Up [id number] Yamileth Hernandez 1970 F Date Provider Department Center 12/30/2023 TOMAS ROBERTO I [facility] No family history on file Level of Service:43701 CT OFFICE/OUTPATIENT ESTABLISHED MOD MDM 30 MIN Reason for Visit and Comments: Follow-up [201425] [facility] Ambulatory Visit Summaryon 0 04-07-2023 Ambulatory Visit [...] SARS-CoV-2 (COVID-19) mRNA-1273 vaccine 08/07/2022 Recorded SARSCoV2 mRNA(rziuzymaz-lnhw-gssife) vac 01/01/2022 Recorded SARS-CoV-2 (COVID-19) mRNA-1273 vaccine 06/18/2021 Recorded 2023-02-26: TPV50 SARS-CoV-2 (COVID-19) mRNA-1273 vaccine 10/30/2020 Recorded SARS-CoV-2 (COVID-19) mRNA-1273 vaccine 10/02/2020 Recorded Normal [facility] Comment on above: Result Comment: Elec tronically Signed By: RAUDEL PUENTES, Joselo Llanes\.br\Date and Time Signed: 04/07/23 14:01 EDT Reminderson 04-02-2023 Reminders - From: Cristal Gordon LPN To: N - Clinical; Sent: 04/02/2023 11:03:11 EDT Show up: 02/21/2033 07:00:00 EDT Subject: colonoscopy recall Due Date/Time: 03/24/2033 07:00:00 EDT Reminder/Recall Patient due for screening colonoscopy 03/24/2033. [facility] Pathology Noteon 03-29-2023 Pathology Note [id number]#[id number]:127 [facility] Outside Colonoscopyon 2022 Outside Colonoscopy [id number]#[id number]:127 [facility] Pre-Certification Formon Pre-Certification Form [id number]#1.00CD:127 [facility] Consent for Procedure/Surger yon 03-05-2023 Consent for Procedure/Surgery [id number]#1.00CD:127 [facility] Facesheeton 03-04-2023 Facesheet [id number]#1.00CD:127 [facility] Ambulatory Visit Summaryon 0 03-03-2023 Ambulatory [...] CT Reporton 03-03-2023 RAD - CT Report [id number]#[id number]:127 Normal [facility] Physician Referralon 023 Physician Referral [id number]#1.00CD:127 Normal [facility] CT ABD/PELV W CONon 02-13-20 CT ABD/PELV W CON EXAMINATION: CT ABD/ [...] by: IDA SOTO Date: 2023-02-12 09:54 Normal [facility] QUANTIFERON TB GOLD PLUSon 0 02-07-2023 QuantiFERON Criteria Comment Normal [facility] Comment on above: Result Comment: Rehan [...] test. Performed By: #### Q NTTB #### [facility] [address] [place] [address] Dr. Jazmyn Saavedra QuantiFERON Incubation Incubation performed. Normal [facility] Comment on above: Performed By: #### Q NTTB #### [facility] [address] [place] [address] Dr. Jazmyn Saavedra QuantiFERON Mitogen Value 6.87 IU/mL Normal [facility] Comment on above: Performed By: #### Q NTTB #### [facility] [address] [place] [address] Dr. Jazmyn Saavedra QuantiFERON Nil Value 0.00 IU/mL Normal [facility] Comment on above: Performed By: #### Q NTTB #### [facility] [address] [place] [address] Dr. Jazmyn Saavedra QuantiFERON TB1 Ag Value 0.00 IU/mL Normal [facility] Comment on above: Performed By: #### Q NTTB #### [facility] [address] [place] [address] Dr. Jazmyn Saavedra QuantiFERON TB2 Ag Value 0.00 IU/mL Normal [facility] Comment on above: Performed By: #### Q NTTB #### [facility] [address] [place] [address] Dr. Jazmyn Saavedra QuantiFERON-TB Gold Plus Negative Normal Negative [facility] Comment on above: Result Comment: No r esponse to M tuberculosis antigens detected. Infection with M tuberculosis is unlikely, but high risk individuals should be considered for additional testing (ATS/IDSA/CDC Clinical Practice Guidelines, 2017). The reference range is an Antigen minus Nil result of <0.35 IU/mL. Chemiluminescence immunoassay methodology Performed By: #### Q NTTB #### [facility] [address] [place] [address] Dr. Jazmyn Saavedra HEP B COREon 02-06-2023 Hep B Core Ab, Tot Negative Normal Negative [facility] Comment on above: Performed By: #### S EDR #### [facility] [address] [address] [address] Jazmyn Saavedra HEP B SURFACE ANTIGEN SCREEN on 02-06-2023 HBsAg Screen Negative Normal Negative [facility] Comment on above: Performed By: #### H BSANS #### [facility] [address] [place] [address] Dr. Jazmyn Saavedra CBC AUTO DIFFon 02-05-2023 BASO # 0.0 103/ul Normal 0.0-0.1 [facility] Comment on above: Performed By: #### C BC #### [facility] [address] [place] [address] Dr. Jazmyn Saavedra Basophils/100 WBC (Bld) 0.5 % Normal 0.2-2.0 [facility] Comment on above: Performed By: #### C BC #### [facility] [address] [place] [address] Dr. Jazmyn Saavedra EO # 0.0 103/ul Normal 0.0-0.7 [facility] Comment on above: Performed By: #### C BC #### [facility] [address] [place] [address] Dr. Jazmyn Saavedra Eosinophils/100 WBC (Bld) 0.8 % Critically low 0.9-7.0 [facility] Comment on above: Performed By: #### C BC #### [facility] [address] [place] [address] Dr. Jazmyn Saavedra Erythrocyte distribution width (RBC) [Ratio] 13.2 % Normal 11.0-15.0 [facility] Comment on above: Performed By: #### C BC #### [facility] [address] [place] [address] Dr. Jazmyn Saavedra Hematocrit (Bld) [Volume fraction] 41.1 % Normal 36.0-48.0 [facility] Comment on above: Performed By: #### C BC #### [facility] [address] [place] [address] Dr. Jazmyn Saavedra Hemoglobin (Bld) [Mass/Vol] 13.4 g/dL Normal 12.0-16.0 [facility] Comment on above: Performed By: #### C BC #### [facility] [address] [place] [address] Dr. Jazmyn Saavedra IG # 0.01 10e3/ul Normal 0.00-0.03 [facility] Comment on above: Performed By: #### C BC #### [facility] [address] [place] [address] Dr. Jazmyn Saavedra IG % 0.3 % Normal 0.0-0.5 [facility] Comment on above: Performed By: #### C BC #### [facility] [address] [place] [address] Dr. Jazmyn Saavedra LYMPH # 1.2 103/ul Normal 1.2-3.8 [facility] Comment on above: Performed By: #### C BC #### [facility] [address] [place] [address] Dr. Jazmyn Saavedra Lymphocytes/100 WBC (Bld) 31.9 % Normal 20.5-60.0 [facility] Comment on above: Performed By: #### C BC #### [facility] [address] [place] [address] Dr. Jazmyn Saavedra MANUAL DIFF REQ NO Normal [facility] Comment on above: Performed By: #### C BC #### [facility] [address] [place] [address] Dr. Jazmyn Saavedra MCH (RBC) [Entitic mass] 30.6 pg Normal 26.7-34.0 [facility] Comment on above: Performed By: #### C BC #### [facility] [address] [place] [address] Dr. Jazmyn Saavedra MCHC (RBC) [Mass/Vol] 32.6 g/dL Normal 29.9-35.2 [facility] Comment on above: Performed By: #### C BC #### [facility] [address] [place] [address] Dr. Jazmyn Saavedra MCV (RBC) [Entitic vol] 93.8 fL Normal 81.0-99.0 [facility] Comment on above: Performed By: #### C BC #### [facility] [address] [address] [address] Jazmyn Saavedra MONO # 0.5 103/ul Normal 0.3-0.8 [facility] Comment on above: Performed By: #### C BC #### [facility] [address] [address] [address] Jazmyn Saavedra Monocytes/100 WBC (Bld) 14.1 % Critically high 1.7-12.0 [facility] Comment on above: Performed By: #### C BC #### [facility] [address] [address] [address] Jazmyn Saavedra NEUT # 1.9 103/ul Normal 1.4-6.5 [facility] Comment on above: Performed By: #### C BC #### [facility] [address] [place] [address] Dr. Jazmyn Saavedra Neutrophils/100 WBC (Bld) 52.4 % Normal 43.0-75.0 [facility] Comment on above: Performed By: #### C BC #### [facility] [address] [place] [address] Dr. Jazmyn Saavedra Platelet mean volume (Bld) [Entitic vol] 9.4 fL Critically low 9.5-13.5 [facility] Comment on above: Performed By: #### C BC #### [facility] [address] [place] [address] Dr. Jazmyn Saavedra PLT 342 103/ul Normal 150-450 [facility] Comment on above: Performed By: #### C BC #### [facility] [address] [place] [address] Dr. Jazmyn Saavedra RBC 4.38 106/ul Normal 4.20-5.40 [facility] Comment on above: Performed By: #### C BC #### [facility] [address] [place] [address] Dr. Jazmyn Saavedra WBC 3.7 103/ul Critically low 4.0-11.0 [facility] Comment on above: Performed By: #### C BC #### [facility] [address] [place] [address] Dr. Jazmyn Saavedra FREE THYROXINE INDEX T7on FTI 3.20 Normal 1.30-4.50 [facility] Comment on above: Performed By: #### S EDR #### [facility] [address] [place] [address] Dr. Jazmyn Saavedra T3U 36.0 % Normal 30.0-39.0 [facility] Comment on above: Performed By: #### S EDR #### [facility] [address] [place] [address] Dr. Jazmyn Saavedra T4 [Mass/Vol] 8.90 ug/dL Normal 4.80-13.90 [facility] Comment on above: Performed By: #### S EDR #### [facility] [address] [place] [address] Dr. Jazmyn Saavedra GLYCOHEMOGLOBIN A1Con 2022 ADA RECOMMENDATION SEE BELOW Normal [facility] Comment on above: Result Comment: ADA RECOMMENDED LIMIT 4.0 - 6.0 ADA THERAPEUTIC TARGET < 7.0 ACTION SUGGESTED > 7.0 Performed By: #### S EDR #### [facility] [address] [place] [address] Dr. Jazmyn Saavedra Glucose [Mass/Vol] 123 mg/dL Normal [facility] Comment on above: Performed By: #### S EDR #### [facility] [address] [place] [address] Dr. Jazmyn Saavedra HbA1c (Bld) [Mass fraction] 5.9 % Normal 4.5-6.2 [facility] Comment on above: Performed By: #### S EDR #### [facility] [address] [place] [address] Dr. Jazmyn Saavedra LIPID PROFILEon 02-05-2023 CHOL-HDL RATIO NORM SEE BELOW Normal [facility] Comment on above: Result Comment: 3.3 - 4.4 LOW RISK 4.4 - 7.1 AVERAGE RISK 7.1 - 11.0 MODERATE RISK >11.0 HIGH RISK Performed By: #### S EDR #### [facility] [id number] Jazmyn Saavedra Cholesterol [Mass/Vol] 256 mg/dL Critically high <=200 [facility] Comment on above: Performed By: #### S EDR #### [facility] [address] [address] [address] Jazmyn Saavedra Cholesterol in HDL [Mass/Vol] 108 mg/dL Critically high 40-60 [facility] Comment on above: Performed By: #### S EDR #### [facility] [address] [address] [address] Jazmyn Saavedra Cholesterol in LDL [Mass/Vol] 139.4 mg/dL Normal [facility] Comment on above: Performed By: #### S EDR #### [facility] [address] [address] [address] Jazmyn Saavedra Cholesterol.total/ Cholesterol in HDL [Mass ratio] 2.4 {ratio} Normal [facility] Comment on above: Performed By: #### S EDR #### [facility] [address] [address] [address] Jazmyn Saavedra HDL NORMAL > or = 60 mg/dl - LO W CARDIOVASCULAR RISK <40 mg/dl - HIGH CARDIOVASCULAR RISK Normal [facility] Comment on above: Performed By: #### S EDR #### [facility] [address] [address] [address] Jazmyn Saavedra LDL CALC NORMAL SEE BELOW Normal [facility] Comment on above: Result Comment: <100 mg/dl OPTIMAL 100 - 129 mg/dl NEAR OR ABOVE OPTIMAL 130 - 159 mg/dl BORDERLINE HIGH 160 - 189 mg/dl HIGH >190 mg/dl VERY HIGH Performed By: #### S EDR #### [facility] [address] [address] [address] Jazmyn Saavedra Triglyceride [Mass/Vol] 43 mg/dL Normal <=150 [facility] Comment on above: Performed By: #### S EDR #### [facility] [address] [address] [address] Jazmyn Saavedra VLDL CALC 8.6 mg/dL Normal [facility] Comment on above: Performed By: #### S EDR #### [facility] [address] [place] [address] Dr. Jazmyn Saavedra PROF 14(COMP METB)on 023 Albumin [Mass/Vol] 4.0 g/dL Normal 3.4-5.0 [facility] Comment on above: Performed By: #### T 7, CMP, LIPID, TSH #### [facility] [address] [place] [address] Dr. Jazmyn Saavedra Albumin/Globulin [Mass ratio] 0.9 {ratio} Normal [facility] Comment on above: Performed By: #### T 7, CMP, LIPID, TSH #### [facility] [address] [place] [address] Dr. Jazmyn Saavedra ALP [Catalytic activity/Vol] 57 U/L Normal 46-116 [facility] Comment on above: Performed By: #### T 7, CMP, LIPID, TSH #### [facility] [address] [place] [address] Dr. Jazmyn Saavedra ALT [Catalytic activity/Vol] 23 U/L Normal 14-59 [facility] Comment on above: Performed By: #### T 7, CMP, LIPID, TSH #### [facility] [address] [place] [address] Dr. Jazmyn Saavedra Anion gap [Moles/Vol] 13.8 mmol/L Normal [facility] Comment on above: Performed By: #### T 7, CMP, LIPID, TSH #### [facility] [address] [place] [address] Dr. Jazmyn Saavedra AST [Catalytic activity/Vol] 23 U/L Normal 15-37 [facility] Comment on above: Performed By: #### T 7, CMP, LIPID, TSH #### [facility] [address] [place] [address] Dr. Jazmyn Saavedra Bilirubin [Mass/Vol] 0.6 mg/dL Normal 0.2-1.0 [facility] Comment on above: Performed By: #### T 7, CMP, LIPID, TSH #### [facility] [address] [place] [address] Dr. Jazmyn Saavedra Calcium [Mass/Vol] 9.6 mg/dL Normal 8.5-10.1 [facility] Comment on above: Performed By: #### T 7, CMP, LIPID, TSH #### [facility] [address] [address] [address] Jazmyn Saavedra Chloride [Moles/Vol] 100 mmol/L Normal 98-107 [facility] Comment on above: Performed By: #### T 7, CMP, LIPID, TSH #### [facility] [address] [address] [address] Jazmyn Saavedra CO2 [Moles/Vol] 29.9 mmol/L Normal 21.0-32.0 [facility] Comment on above: Performed By: #### T 7, CMP, LIPID, TSH #### [facility] [address] [address] [address] Jazmyn Saavedra Creatinine [Mass/Vol] 0.89 mg/dL Normal 0.55-1.02 [facility] Comment on above: Performed By: #### T 7, CMP, LIPID, TSH #### [facility] [address] [place] [address] Dr. Jazmyn Saavedra EGFR-AF QATARI >60 Normal >=60 [facility] Comment on above: Performed By: #### T 7, CMP, LIPID, TSH #### [facility] [address] [place] [address] Dr. Jazmyn Saavedra EGFR-NON AF QATARI >60 Normal >=60 [facility] Comment on above: Performed By: #### T 7, CMP, LIPID, TSH #### [facility] [address] [address] [address] Jazmyn Saavedra Globulin (S) [Mass/Vol] 4.4 g/dL Normal [facility] Comment on above: Performed By: #### T 7, CMP, LIPID, TSH #### [facility] [address] [place] [address] Dr. Jazmyn Saavedra Glucose [Mass/Vol] 89 mg/dL Normal 74-106 [facility] Comment on above: Performed By: #### T 7, CMP, LIPID, TSH #### [facility] [address] [address] [address] Jazmyn Saavedra Potassium [Moles/Vol] 3.7 mmol/L Normal 3.5-5.1 [facility] Comment on above: Performed By: #### T 7, CMP, LIPID, TSH #### [facility] [address] [place] [address] Dr. Jazmyn Saavedra Protein [Mass/Vol] 8.4 g/dL Critically high 6.4-8.2 [facility] Comment on above: Performed By: #### T 7, CMP, LIPID, TSH #### [facility] [address] [place] [address] Dr. Jazmyn Saavedra Sodium [Moles/Vol] 140 mmol/L Normal 136-145 [facility] Comment on above: Performed By: #### T 7, CMP, LIPID, TSH #### [facility] [address] [place] [address] Dr. Jazmyn Saavedra Urea nitrogen [Mass/Vol] 17.0 mg/dL Normal 7.0-18.0 [facility] Comment on above: Performed By: #### T 7, CMP, LIPID, TSH #### [facility] [address] [place] [address] Dr. Jazmyn Saavedra Urea nitrogen/Creatinin e [Mass ratio] 19.1 mg/mg Normal [facility] Comment on above: Performed By: #### T 7, CMP, LIPID, TSH #### [facility] [address] [place] [address] Dr. Jazmyn Saavedra TSHon 02-05-2023 TSH 0.984 uIU/mL Normal 0.358-3.740 [facility] Comment on above: Performed By: #### S EDR #### [facility] [address] [place] [address] Dr. Jazmyn Saavedra PAP ACOG PANEL 2: 30 to 65on 10-07-2022 . . Normal [facility] Comment on above: Result Comment: Perf ormed at: [facility] Performed By: #### S EDR #### [facility] [address] [place] [address] Dr. Jazmyn Saavedra Age Gdln ACOG Testing 30-65 Normal [facility] Comment on above: Performed By: #### S EDR #### [facility] [address] [address] [address] Jazmyn Saavedra DIAGNOSIS: Comment Normal [facility] Comment on above: Result Comment: NEGA TIVE FOR INTRAEPITHELIAL LESION OR MALIGNANCY. Performed at: [facility] Performed By: #### S EDR #### [facility] [address] [address] [address] Jazmyn Saavedra HPV Aptima Negative Normal Negative [facility] Comment on above: Result Comment: This nucleic acid amplification test detects fourteen high-risk HPV types (16,18,31,33,35,39,45,51,52,56,58,59,66,68) without differentiation. Performed at: =G Performed By: #### S EDR #### [facility] [address] [address] [address] Jazmyn Saavedra HPV Genotype Reflex Comment Normal [facility] Comment on above: Result Comment: Crit eria not met, HPV Genotype not performed. Performed at: [facility] Performed By: #### S EDR #### [facility] [address] [address] [address] Jazmyn Saavedra Methodology: Comment Normal [facility] Comment on above: Result Comment: This liquid based ThinPrep(R) pap test was screened with the use of an image guided system. Performed at: [facility] Performed By: #### S EDR #### [facility] [address] [address] [address] Jazmyn Saavedra Note: Comment Normal [facility] Comment on above: Result Comment: The [...] WB Performed By: #### S EDR #### [facility] [address] [address] [address] Jazmyn Saavedra Performed by: Comment Normal [facility] Comment on above: Result Comment: Daryl Calhoun, Used Equipment Sales Representative (ASCP) Performed at: [facility] Performed By: #### S EDR #### [facility] [address] [address] [address] Jazmyn Saavedra Specimen adequacy: Comment Normal [facility] Comment on above: Result Comment: Sati sfactory for evaluation. Endocervical component may not be distinguished in cases of atrophy. Performed at: [facility] Performed By: #### S EDR #### [facility] [address] [address] [address] Jazmyn Saavedra XR DEXA BONE DENSITYon [...] by: GILBERT GEORGE Date: 2022-08-28 08:47 Normal [facility] CBC AUTO DIFFon 08-25-2022 BASO # 0.0 103/ul Normal 0.0-0.1 [facility] Comment on above: Performed By: #### S EDR #### [facility] [address] [address] [address] Jazmyn Saavedra Basophils/100 WBC (Bld) 0.5 % Normal 0.2-2.0 [facility] Comment on above: Performed By: #### S EDR #### [facility] [address] [address] [address] Jazmyn Saavedra EO # 0.1 103/ul Normal 0.0-0.7 [facility] Comment on above: Performed By: #### S EDR #### [facility] [address] [place] [address] Dr. Jazmyn Saavedra Eosinophils/100 WBC (Bld) 1.2 % Normal 0.9-7.0 [facility] Comment on above: Performed By: #### S EDR #### [facility] [address] [place] [address] Dr. Jazmyn Saavedra Erythrocyte distribution width (RBC) [Ratio] 13.2 % Normal 11.0-15.0 [facility] Comment on above: Performed By: #### S EDR #### [facility] [address] [place] [address] Dr. Jamzyn Saavedra Hematocrit (Bld) [Volume fraction] 38.4 % Normal 36.0-48.0 [facility] Comment on above: Performed By: #### S EDR #### [facility] [address] [place] [address] Dr. Jazmyn Saavedra Hemoglobin (Bld) [Mass/Vol] 12.6 g/dL Normal 12.0-16.0 [facility] Comment on above: Performed By: #### S EDR #### [facility] [address] [place] [address] Dr. Jazmyn Saavedra IG # 0.01 10e3/ul Normal 0.00-0.03 [facility] Comment on above: Performed By: #### S EDR #### [facility] [address] [place] [address] Dr. Jazmyn Saavedra IG % 0.2 % Normal 0.0-0.5 [facility] Comment on above: Performed By: #### S EDR #### [facility] [address] [place] [address] Dr. Jazmyn Saavedra LYMPH # 1.7 103/ul Normal 1.2-3.8 [facility] Comment on above: Performed By: #### S EDR #### [facility] [address] [place] [address] Dr. Jazmyn Saavedra Lymphocytes/100 WBC (Bld) 40.8 % Normal 20.5-60.0 [facility] Comment on above: Performed By: #### S EDR #### [facility] [address] [place] [address] Dr. Jazmyn Saavedra MANUAL DIFF REQ NO Normal [facility] Comment on above: Performed By: #### S EDR #### [facility] [address] [place] [address] Dr. Jazmyn Saavedra MCH (RBC) [Entitic mass] 31.0 pg Normal 26.7-34.0 [facility] Comment on above: Performed By: #### S EDR #### [facility] [address] [place] [address] Dr. Jazmyn Saavedra MCHC (RBC) [Mass/Vol] 32.8 g/dL Normal 29.9-35.2 [facility] Comment on above: Performed By: #### S EDR #### [facility] [address] [place] [address] Dr. Jazmyn Saavedra MCV (RBC) [Entitic vol] 94.3 fL Normal 81.0-99.0 [facility] Comment on above: Performed By: #### S EDR #### [facility] [address] [place] [address] Dr. Jazmyn Saavedra MONO # 0.5 103/ul Normal 0.3-0.8 [facility] Comment on above: Performed By: #### S EDR #### [facility] [address] [place] [address] Dr. Jazmyn Saavedra Monocytes/100 WBC (Bld) 11.9 % Normal 1.7-12.0 [facility] Comment on above: Performed By: #### S EDR #### [facility] [address] [place] [address] Dr. Jazmyn Saavedra NEUT # 1.9 103/ul Normal 1.4-6.5 [facility] Comment on above: Performed By: #### S EDR #### [facility] [address] [place] [address] Dr. Jazmyn Saavedra Neutrophils/100 WBC (Bld) 45.4 % Normal 43.0-75.0 [facility] Comment on above: Performed By: #### S EDR #### [facility] [address] [address] [address] Jazmyn Saavedra Platelet mean volume (Bld) [Entitic vol] 9.3 fL Critically low 9.5-13.5 [facility] Comment on above: Performed By: #### S EDR #### [facility] [address] [address] [address] Jazmyn Saavedra PLT 309 103/ul Normal 150-450 [facility] Comment on above: Performed By: #### S EDR #### [facility] [address] [address] [address] Jazmyn Saavedra RBC 4.07 106/ul Critically low 4.20-5.40 [facility] Comment on above: Performed By: #### S EDR #### [facility] [address] [place] [address] Dr. Jazmyn Saavedra WBC 4.2 103/ul Normal 4.0-11.0 [facility] Comment on above: Performed By: #### S EDR #### [facility] [address] [place] [address] Dr. Jazmyn Saavedra CRPon 08-25-2022 CRP [Mass/Vol] mg/L Normal <=1.0 [facility] Comment on above: Performed By: #### C RP, CMP, LIPID #### [facility] [address] [place] [address] Dr. Jazmyn Saavedra LIPID PROFILEon 08-25-2022 CHOL-HDL RATIO NORM SEE BELOW Normal [facility] Comment on above: Result Comment: 3.3 - 4.4 LOW RISK 4.4 - 7.1 AVERAGE RISK 7.1 - 11.0 MODERATE RISK >11.0 HIGH RISK Performed By: #### C RP, CMP, LIPID #### [facility] [address] [place] [address] Dr. Jazmyn Saavedra Cholesterol [Mass/Vol] 251 mg/dL Critically high <=200 [facility] Comment on above: Performed By: #### C RP, CMP, LIPID #### [facility] [address] [address] [address] Jazmyn Saavedra Cholesterol in HDL [Mass/Vol] 102 mg/dL Critically high 40-60 [facility] Comment on above: Performed By: #### C RP, CMP, LIPID #### [facility] [address] [address] [address] Jazmyn Saavedra Cholesterol in LDL [Mass/Vol] 135.0 mg/dL Normal [facility] Comment on above: Performed By: #### C RP, CMP, LIPID #### [facility] [address] [address] [address] Jazmyn Saavedra Cholesterol.total/ Cholesterol in HDL [Mass ratio] 2.5 {ratio} Normal [facility] Comment on above: Performed By: #### C RP, CMP, LIPID #### [facility] [address] [place] [address] Dr. Jazmyn Saavedra HDL NORMAL > or = 60 mg/dl - LO W CARDIOVASCULAR RISK <40 mg/dl - HIGH CARDIOVASCULAR RISK Normal [facility] Comment on above: Performed By: #### C RP, CMP, LIPID #### [facility] [address] [address] [address] Jazmyn Saavedra LDL CALC NORMAL SEE BELOW Normal [facility] Comment on above: Result Comment: <100 mg/dl OPTIMAL 100 - 129 mg/dl NEAR OR ABOVE OPTIMAL 130 - 159 mg/dl BORDERLINE HIGH 160 - 189 mg/dl HIGH >190 mg/dl VERY HIGH Performed By: #### C RP, CMP, LIPID #### [facility] [address] [address] [address] Jazmyn Saavedra Triglyceride [Mass/Vol] 70 mg/dL Normal <=150 [facility] Comment on above: Performed By: #### C RP, CMP, LIPID #### [facility] [address] [address] [address] Jazmyn Saavedra VLDL CALC 14.0 mg/dL Normal [facility] Comment on above: Performed By: #### C RP, CMP, LIPID #### [facility] [address] [address] [address] Jazmyn Saavedra PROF 14(COMP METB)on 022 Albumin [Mass/Vol] 3.9 g/dL Normal 3.4-5.0 [facility] Comment on above: Performed By: #### C RP, CMP, LIPID #### [facility] [address] [address] [address] Jazmyn Saavedra Albumin/Globulin [Mass ratio] 1.0 {ratio} Normal [facility] Comment on above: Performed By: #### C RP, CMP, LIPID #### [facility] [address] [address] [address] Jazmyn Saavedra ALP [Catalytic activity/Vol] 49 U/L Normal 46-116 [facility] Comment on above: Performed By: #### C RP, CMP, LIPID #### [facility] [address] [address] [address] Jazmyn Saavedra ALT [Catalytic activity/Vol] 17 U/L Normal 14-59 [facility] Comment on above: Performed By: #### C RP, CMP, LIPID #### [facility] [address] [address] [address] Jazmyn Saavedra Anion gap [Moles/Vol] 10.1 mmol/L Normal [facility] Comment on above: Performed By: #### C RP, CMP, LIPID #### [facility] [address] [address] [address] Jazmyn Saavedra AST [Catalytic activity/Vol] 19 U/L Normal 15-37 [facility] Comment on above: Performed By: #### C RP, CMP, LIPID #### [facility] [address] [address] [address] Jazmyn Saavedra Bilirubin [Mass/Vol] 0.5 mg/dL Normal 0.2-1.0 [facility] Comment on above: Performed By: #### C RP, CMP, LIPID #### [facility] [address] [address] [address] Jazmyn Saavedra Calcium [Mass/Vol] 9.3 mg/dL Normal 8.5-10.1 [facility] Comment on above: Performed By: #### C RP, CMP, LIPID #### [facility] [address] [address] [address] Jazmyn Saavedra Chloride [Moles/Vol] 103 mmol/L Normal 98-107 [facility] Comment on above: Performed By: #### C RP, CMP, LIPID #### [facility] [address] [address] [address] Jazmyn Saavedra CO2 [Moles/Vol] 30.1 mmol/L Normal 21.0-32.[address] [facility] Comment on above: Performed By: #### C RP, CMP, LIPID #### [facility] [address] [address] [address] Jazmyn Saavedra Creatinine [Mass/Vol] 0.80 mg/dL Normal 0.55-1.02 [facility] Comment on above: Performed By: #### C RP, CMP, LIPID #### [facility] [address] [place] [address] Dr. Jazmyn Saavedra EGFR-AF QATARI >60 Normal >=60 [facility] Comment on above: Performed By: #### C RP, CMP, LIPID #### [facility] [address] [place] [address] Dr. Jazmyn Saavedra EGFR-NON AF QATARI >60 Normal >=60 [facility] Comment on above: Performed By: #### C RP, CMP, LIPID #### [facility] [address] [place] [address] Dr. Jazmyn Saavedra Globulin (S) [Mass/Vol] 4.1 g/dL Normal [facility] Comment on above: Performed By: #### C RP, CMP, LIPID #### [facility] [address] [place] [address] Dr. Jazmyn Saavedra Glucose [Mass/Vol] 92 mg/dL Normal 74-106 [facility] Comment on above: Performed By: #### C RP, CMP, LIPID #### [facility] [address] [place] [address] Dr. Jazmyn Saavedra Potassium [Moles/Vol] 4.2 mmol/L Normal 3.5-5.1 [facility] Comment on above: Performed By: #### C RP, CMP, LIPID #### [facility] [address] [place] [address] Dr. Jazmyn Saavedra Protein [Mass/Vol] 8.0 g/dL Normal 6.4-8.2 [facility] Comment on above: Performed By: #### C RP, CMP, LIPID #### [facility] [address] [place] [address] Dr. Jazmyn Saavedra Sodium [Moles/Vol] 139 mmol/L Normal 136-145 [facility] Comment on above: Performed By: #### C RP, CMP, LIPID #### [facility] [address] [place] [address] Dr. Jazmyn Saavedra Urea nitrogen [Mass/Vol] 20.0 mg/dL Critically high 7.0-18.0 [facility] Comment on above: Performed By: #### C RP, CMP, LIPID #### [facility] [address] [place] [address] Dr. Jazmyn Saavedra Urea nitrogen/Creatinin e [Mass ratio] 25.0 mg/mg Normal [facility] Comment on above: Performed By: #### C RP, CMP, LIPID #### [facility] [address] [place] [address] Dr. Jazmyn Saavedra SED RATE [facility] 2021 SED RATE 47 mm/hr Critically high <=30 [facility] Comment on above: Performed By: #### S EDR #### [facility] [address] [place] [address] Dr. Jazmyn Saavedra ASYMPTOMATIC COVID-19 ANTIGE Non 05-18-2022 EUA Statement SEE BELOW Normal [facility] Comment on above: Result Comment: This [...] sooner. Performed By: #### S EDR #### [facility] [address] [address] [address] Jazmyn Saavedra SARS-CoV-2 (COVID-19) RNA NILES+probe Ql (Unsp spec) Positive Critically abnormal NEGATIVE [facility] Comment on above: Result Comment: SARS -CoV-2 antigen present; does not rule out coinfection with other pathogens. Performed By: #### S EDR #### [facility] [address] [address] [address] Jazmyn Saavedra Covid-19 PCR ([facility])on SARS-CoV-2 (COVID-19) RNA NILES+probe Ql (Unsp spec) Detected Critically abnormal NOT DETECTED [facility] Comment on above: Result Comment: This test is not yet approved or cleared by the [place] FDA. When there are no FDA-approved or cleared tests available, and other criteria are met, FDA can make tests available under an emergency access mechanism called an Emergency Use Authorization (EUA). The EUA for this test is supported by the [employer] of Health and Human Service's declaration that [...] used). Performed By: #### C VDTBH #### [facility] [address] [place] [address] Dr. Jazmyn BARLOW MULTI-CANCER PANELon 02-12-2021 RESULT Results to be mailed directly to physician's office by reference lab. Normal [facility] Comment on above: Result Comment: Test performed by [facility] [address] [place] [address], [place] [id number] No result expected. For billing and tracking purposes only. Performed By: #### 3 [id number] #### [facility] [address] Vital Signs Date Time Vital Sign Value Performing Clinician Facility 11-16-2023 11:39-0500 Body mass index (BMI) [Ratio] 24.96 kg/m2 [employer] Work Phone: [facility] 11-16-2023 11:39-0500 Body weight 68.04 [facility] Work Phone: [facility] 11-16-2023 11:39-0500 Diastolic blood pressure 72 mm[Hg] [employer] Work Phone: [facility] 11-16-2023 11:39-0500 Systolic blood pressure 118 mm[Hg] [employer] Work Phone: [facility] 03-03-2023 14:35-0400 Blood Pressure Location [facility] 03-03-2023 14:35-0400 Diastolic blood pressure 68 mm[Hg] Joselo NILL [facility] 03-03-2023 14:35-0400 Heart rate 68 /min Joselo NILL [facility] 03-03-2023 14:35-0400 Respiratory rate 16 /min Joselo NILL [facility] 03-03-2023 14:35-0400 Systolic blood pressure 114 mm[Hg] Joselo NILL [facility] Encounters Encounter Date Encounter Type Care Provider Facility Start: 10-19-2024 End: 10-19-2024 ambulatory [facility] Start: 05-22-2024 End: 05-22-2024 ambulatory [facility] Start: 05-04-2024 End: 05-04-2024 ambulatory [facility] Start: 03-08-2024 End: 03-08-2024 ambulatory TODD RENDON [facility] Start: 12-30-2023 End: 12-30-2023 ambulatory TOMAS CLINTON [facility] Start: 11-16-2023 End: 11-16-2023 ambulatory EASTON KEENE Not Available Start: 11-16-2023 End: 11-16-2023 Postop follow up visit related to original px Easton Keene DO Work Phone: [facility] Comment on above: Encounter for repeat Pap smear due to previous insuff cervical cells Start: 10-28-2023 End: 10-28-2023 ambulatory FELIX WHITNEY Not Available Start: 09-29-2023 End: 09-29-2023 ambulatory FELIX WHITNEY Not Available Start: 04-07-2023 End: 04-08-2023 ambulatory Joselo STARKS Facility:[facility] Start: 04-07-2023 End: 04-07-2023 Patient encounter procedure Joselo Llanes NILL General Surgery Nill/Said [facility] Start: 03-24-2023 End: 03-25-2023 ambulatory Joselo R GHISLAINEL Facility:[id number] Start: 03-03-2023 End: 03-04-2023 [facility]ulatory [facility] Start: 03-03-2023 End: 03-03-2023 Patient encounter procedure Joselo R NILL General Surgery Nill/Said [place] Start: 02-18-2023 ambulatory Mariza Hoy Facility:[facility] [place] Start: 02-12-2023 Encounter for genera l adult medical examination without abnormal findings MARIZA WRIGHT [facility] Start: 02-12-2023 End: 02-13-2023 ambulatory MARIZA HOY Facility:[facility] Start: 02-05-2023 End: 02-06-[address] DOCTOR KELLOGG Facility:[facility] Start: 02-05-2023 End: 02-06-2023 Encounter for general adult medical examination without abnormal findings MARIZA HODelia Facility:[facility] Start: 02-04-2023 End: 02-05-[address] [...] Date Procedure Procedure Detail Performing Clinician Start: 03-24-2023 Colonoscopy Easton Keene DO Work Phone: Start: 03-24-2023 Colonoscopy Joselo SCANLONL Start: 03-24-2023 Esophagogastroduodenoscopy Joselo GHISLAINEL Start: 09-23-2022 Microscopic observation [Identifier] in Cervix by Cyto stain Eastondelia Keene Work Phone: Start: 07-24-2015 Colonoscopy Joselo NILL Start: 02-01-2007 Colonoscopy Joselo NILL Bilateral mastectomy Joselo NILL Biopsy of breast Joselo NIL L section Joselo NIL L Excision of cervical intervertebral disc Joselo NILL Excision of lymph node Tony flori NILL Comment on above: left inguinal Excision of salivary gland M marco GHISLAINEL Comment on above: x2 Granuloma (morpholog ic abnormality) Joselo NILL Comment on above: x 2 History of radiofreq uency ablation operation for arrhythmia Joselo SCANLONAdal Total abdominal hyst erectomy with bilateral salpingo-oophorectomy Joselo SCANLONL Plan of Treatment Date Care Activity Detail Author Start: 03-24-2033 Screening for malign ant neoplasm of colon [facility] Start: 09-23-2027 Screening for malign ant neoplasm of cervix [facility] Start: 01-27-2025 Screening for malign ant neoplasm of colon FIT-DNA [facility] Start: 11-20-2024 End: 11-20-2024 Patient encounter procedure 11/20/2024 4:00 PM EST Office Visit [facility] [address] [place] [address] Easton Keene, DO [address] [place], [place] [id number] [facility] Start: 06-04-2023 Influenza vaccination Influenza Vacc ine (#1) [facility] Start: 2008 Screening for malign ant neoplasm of breast Mammogram [facility] Start: 1968 Screening for malign ant neoplasm of colon [facility] Immunizations Immunization Date Immunization Notes Care Provider Fa david 08-07-2022 SARS-CoV-2 (COVID-19 ) mRNA-1273 vaccine Joselo SCANLONAdal [facility] [place] 01-01-2022 SARS-CoV-2 mRNA (mrjftqiuivc-jdhi-gaxlx se) vaccine Joselo [facility]ONAd[facility] [place] 06-18-2021 SARS-CoV-2 (COVID-19 ) mRNA-1273 vaccine Joselo SCANLONL [facility] Comment on above: Result Comment: 2022: [id number] 10-30-2020 SARS-CoV-2 (COVID-19 ) mRNA-1273 vaccine Joselo SCANLONL [facility] [place] 10-02-2020 SARS-CoV-2 (COVID-19 ) mRNA-1273 vaccine Joselo NILL [facility] [place] Payers Date Payer Category Payer Unknown BCBS BCBS xxxxxx [id number] 2022-Present [phone] [address] [place] [address] [id number] 2022 Unknown [id number] 2019 Unknown [id number] 1968 Unknown [id number] 2.16.840.1.252959.3.579.2.593 1968 Unknown [id number] 2.16.840.1.888914.3.579.2.593 1968 Unknown [id number] 2.16.840.1.650895.3.579.2.593 1968 Unknown [id number] 2.16.840.1.758157.3.579.2.593 1968 Unknown [id number] 2.16.840.1.210785.3.579.2.593 1968 Unknown [id number] 2.16.840.1.227680.3.579.2.593 1968 Unknown [id number] 2.16.840.1.421892.3.579.2.593 1968 Unknown [id number] 2.16.840.1.298192.3.579.2.593 1968 Unknown [id number] 2.16.840.1.054802.3.579.2.593 1968 Unknown [id number] 2.16.840.1.571726.3.579.2.727 1968 Unknown [id number] 2.16.840.1.894371.3.579.2.727 1968 Unknown [id number] 2.16.840.1.184627.3.579.2.727 1968 Unknown [id number] 2.16.840.1.492158.3.579.2.1259 1968 Unknown [id number] 2.16.840.1.531756.3.579.2.1259 1968 Unknown [id number] 2.16.840.1.185321.3.579.2.1259 1959 Self-pay [id number] Unknown [id number] 2.16.840.1.338088.3.579.2.593 Social History Date Type Detail Facility Start: 03-03-2023 End: 09-24-2023 Tobacco smoking status Never smoked tobacco (finding) [facility] [place] Tobacco smoking status Never [facility] [place] Start: 09-24-2023 Sex Assigned At Female [facility] Start: 10-28-2023 Alcohol intake Current [...] 03-03-2023 Functional Status N/A [facility] [place] Clinical Notes 02-04-2023 to 10-19-2024 Easton Keene DO - 11/16/2023 11:20 AM EST Note Date & Type Note Facility 10-19-2024 Note Attestation signed by Tomas Clinton MD at 10/19/2024 3:34 PM GC: I saw this patient. I personally performed the critical/rosales portions that determines the level of service. I was directly involved in the management and treatment plan of the patient. I reviewed note and agree with the documentation Subjective Patient ID: Teetee Hernandez is a 54 y.o. female who presents for follow up visit. HPI She is extremely tired although his otherwise ok. Plaquenil helped a bit and she thinks she's getting good sleep. She hasn't had much pain in the hands. Sometimes the feet bother her at the balls. The dry eyes remain but she just uses eyedrops for this and it is ok. Review of Systems Constitutional: Positive for fatigue. [...] and complete the homunculus joint exam. Assessment/Plan 54 yo F with seropsositive (+RF) Rheupus (controlled with Xeljanz) presented today for follow up. 1. Rheupus (+RF, synovitis) - She has combination of SLE and RA. Not a candidate for TNF inhibitors - She used Arava before and it was not effective. Did not tolerate MTX nor had effect - Rinvoq was ineffective and she's prefer to be back on Xeljanz which she's tried previously. She was provided with samples today - On Xeljanz. We provided her with Xeljanz samples (3 packages) on 10/19/24 - Restarted Plaquenil 300 mg daily with ophthalmology approval as vision issues not likely due to this medication, will refill on 05/04/24 - May have tizanidine 2 mg at bedtime PRN for sleep - CBC, CMP Q3 months, lipid panel Q6 months - on 02/25/24, WBC low at 3.3, RBC low at 4.02, protein high at 8.3, cholesterol high at 265, HDL high at 103, remainder of CBC, CMP, lipid panel ok - Will also obtain lupus labs including CBC, CMP, and lipid panel prior to next appointment - not obtained as of 10/28, patient says she did in [place] on 08/27 and will arrange to get these to us - Agree with exercises to help with fatigue - Handicap placard given on 10/19/24 2. SLE - Based in oral ulcers, malar rash, pericarditis, skin vasculitis, arthritis and +SSA, SSB, RF - She had prior hx bullous lesions over the elbows which improved with a short course of steroids - The most recent issue has been worsening joint pain - Currently disease is in remission clinically, no malar rash, no pleuritis but she does have occasional oral ulcers - Restarted Plaquenil 300 mg daily with ophthalmology approval as vision issues not likely due to this medication, will refill on 05/04/24 3. Secondary Sjogren's syndrome. - + SSA and SSB, + RF, dry eyes and dry mouth - No lymphadenopathy, no B symptoms. No indication of lymphoma. SPEP normal - Failed restasis eye drop which are ineffective, cevimeline due to excessive saliva - On OTC saliva - She is seeing ophthalmology. She reported having dry eye that is resistant to treatment. I asked her to discuss with ophthalmology if she is candidate for tear duct plug 4. Osteopenia - Seen on DEXA on 08/28/22 - Repeat DEXA pending 5. Foot osteoarthritis - Recommend cushioned shoe soles RTC in a few months Seen by Dr Clinton and Dr Matamoros [facility] 05-22-2024 Note [facility] Note Reason [...] post ablation about 20 years ago at [facility]. History of pericarditis remotely. She has history of lupus/rheumatoid arthritis, hypothyroidism, and GERD. She presented to [facility] ED 02/05/[address] and SOB[address] [...] did not advise anticoagulation due to low RAQ1MK6-KUDa score of 1. Few weeks ago she [...] Disp: , Rfl: (more content not included)... [facility] 05-04-2024 Note Attestation signed by Tomas Clinton [...] and complete the homunculus joint exam. Assessment/Plan 54 yo F with [...] Seen by Dr Clinton and Dr Matamoros [facility] 03-08-2024 Note [facility] Note Reason for cardiology consult: Ref from Dr. Mariza Wright for afib. Chief Complaint: Palpitation HPI: Teetee Hernandez is a 54 y.o. female with prior history of SVT status post ablation about 20 years ago at [facility]. History of pericarditis remotely. She has history of lupus/rheumatoid arthritis, hypothyroidism, and GERD. She presented to [facility] ED 02/05/[address] and SOB[address] [...] did not advise anticoagulation due to low [id number]-CEXw score of 1. Few weeks ago she [...] BMI 24.42 kg/m??? (more content not included)... [facility] 12-30-2023 Note Subjective Patient ID: Teetee Hernandez [...] is [facility] to the [facility]umatology activity and [facility]. Assessment/Plan 53 yo F with [...] more symptom control; side effects including increased [facility] 11-16-2023 History of Present illness Narrative Reason [...] History: Procedure Laterality Date BREAST SURGERY Right 2003 Excision of Right breast lesion CERVICAL FUSION [...] Easton Keene DO documented in this encounter [facility] 03-03-2023 Note Chief Complaint consultation [...] authenticated by: IDA SOTO Date: 2023-02-04 18:18 [facility] 02-04-2023 Note PROCEDURE: XR HIP LT [...] by: IDA SOTO Date: 2023-02-04 18:17 [facility] 02-04-2023 Note PROCEDURE: XR FOOT R T MIN 3 VIEWS COMPARISON: None. HISTORY: Rheumatoid factor positive rheumatoid arthritis FINDINGS: BONES:No acute fracture or dislocation. Mild enthesopathic spurring of the calcaneus at the Achilles insertion. SOFT TISSUES:Negative. No visible soft tissue swelling. EFFUSION:None visible. OTHER: Negative. IMPRESSION: Mild calcaneal Achilles enthesopathy Electronically authenticated by: IDA SOTO Date: 2023-02-04 18:16 [facility] Evaluation + Plan note No data available for this section [facility] [place] Evaluation note Diagnosis Encounter for repeat Pap smear due to previous insuff cervical cells [facility] No data available for this section [facility] [place] Progress note No data available for this section [facility] [place] Summary Purpose Family History No Family History Records FoundNo Family History Records FoundNo Family History Records FoundNo Family History Records FoundNo Family History Records Found Advance Directives No Advanced Directives Records FoundNo Advanced Directives Records FoundNo Advanced Directives Records FoundNo Advanced Directives Records FoundNo Advanced Directives Records Found Additional Source Comments INFORMATION SOURCE (unrecogn ized section and content) DATE CREATED AUTHOR 03/16/2021 [facility] DATE CREATED AUTHOR AUTHOR'S ORGANIZ ATION 02/15/2023 [facility] DATE CREATED AUTHOR AUTHOR'S ORGANIZ ATION 04/08/2023 [facility] DATE CREATED AUTHOR AUTHOR'S ORGANIZ ATION 11/17/2023 [facility] EPIC DATE CREATED AUTHOR AUTHOR'S ORGANSTEPHANIE ATION 10/22/2024 [facility] Patient Care team informatio n (unrecognized section and content) Foot And Ankle Surgeon Relationship Specialty Start Date End Date Mariza Wright MD [address] [place] [id number] PCP - General 09/27/23 Reason for Visit [...] BE BASED ON THE PRIMARY CLINICAL RECORDS. [employer] provides no warranty or guarantee of the accuracy or completeness of information in this document.
== END 2024-11-23 20:12 | disposition home or self-care (01) ==
LOC: LAB 20:11
PROVIDERS: PCP Family Medicine; Visit Provider Obstetrics & Gynecology
DX: Z01.419 Encounter for gynecological examination (general) (routine) without abnormal findings (principal)
CPT/HCPCS: 87624; 88175

== ENCOUNTER 2024-12-08 16:06 | Outpatient (OUT) | payer BC, SELFPAY ==
--- OUTSIDE RECORDS SUMMARY | 2024-12-08 16:11 | XMS_ITS | CCD ---
Author Organization [facility] Care Team Providers Care Equipment Manager Name Role Phone SILVIAYLIBBYMARIZA Consulting Unavailable HOY, [...] Unavailable Mariza Wright MD Primary Care Provider [phone] TODD RENDON Attending Unavailable TOMAS CLINTON I Attending Unavailable TODD RENDON Attending Unavailable TOMAS CLINTON I Attending Unavailable TOMAS CLINTON I Attending Unavailable EASTON KEENE Attending Unavailable Allergies Allergy Classification Reported Allergen(s) Allergy Type Date of Onset Reaction(s) Facility (2 sources) Benzoyl Peroxide; Translations: [BENZOYL PEROXIDE] Drug Allergy 07-22-20 15 [facility] (1 source) Desonide Drug Allergy 04-05-20 13 [facility] (1 source) Sulfonamides (Antibiotic) Drug allergy (disorder) 04-05-20 13 [facility] (1 source) Misc-Other; Translations: [Misc-Other] Propensity to adverse reactions (disorder) 07-22-20 15 [facility] (3 sources) Sulfonamides (Antibiotic); Translations: [sulfa drugs] Drug allergy Discoloration of skin (finding) General [facility] [place] (5 sources) Benzoyl Peroxide Drug Allergy 09-20-20 23 [facility] (6 sources) Sulfamethoxazole / Trimethoprim; Translations: [SULFAMETHOXAZOLE-T RIMETHOPRIM] Drug Allergy 02-02-20 23 Rash [facility] (5 sources) Sulfonamides (Antibiotic) Drug Allergy 09-20-20 23 [facility] Work Phone: (5 sources) Wound Dressing Adhesive Drug Allergy 09-21-20 14 Unknown [facility] (1 source) Adhesive agent; Translations: [ADHESIVE] Propensity to adverse reactions to drug (disorder) 09-21-20 14 [facility] (1 source) Sulfonamides (Antibiotic); Translations: [SULFA (SULFONAMIDE ANTIBIOTICS)] Propensity to adverse reactions to drug (disorder) 07-31-20 14 [facility] (1 source) ADHESIVE TAPE-SILICONES; Translations: [ADHESIVE TAPE-SILICONES] Propensity to adverse reactions to drug (disorder) 10-07-19 22 [facility] Medications Current Medications Medication Drug Class(es) Dates Sig (Normalized) Sig (Original) aspirin 81 mg chewable tablet (7 sources) Platelet Aggregation Inhibitor, Nonsteroidal Anti-inflammatory Drug Start: 3 aspirin 81 MG chewable tablet Chew 81 mg 1 (one) time 02/26/2023 Active calcium carbonate 1500 mg oral tablet (5 sources) take 1 tablet by mouth in the morning calcium carbonate 1500 (600 Ca) MG tablet Take 1,500 mg by mouth in the morning. Active hydroxychloroquine sulfate 200 mg oral tablet (2 sources) Antimalarial, Antirheumatic Agent Start: 3 hydroxychloroquine 200 mg Tab See Instructions, as directed, Refills(s) 0 Start Date: 02/26/23 Status: Ordered levothyroxine sodium 0.1 mg oral tablet (7 sources) l-Thyroxine Start: 3 take 1 tablet by mouth once daily levothyroxine 100 mcg (0.1 mg) Tab 100 mcg = 1 tab(s), Oral, Daily, Refills(s) 0 Start Date: 02/26/23 Status: Ordered take 1 tablet by mouth in the mo rning levothyroxine (Synthroid, Levoxyl) 100 MCG tablet Take 100 mcg by mouth in the morning. Take on an empty stomach.. Active liothyronine sodium 0.005 mg oral tablet (7 sources) l-Triiodothyronine Start: 02-26-2023 take 1 tablet by mouth once daily liothyronine 5 mcg Tab 5 mcg = 1 tab(s), Oral, Daily, Refills(s) 0 Start Date: 02/26/23 Status: Ordered take 1 tablet by mouth in the mo rning liothyronine (Cytomel) 5 MCG tablet Take 5 mcg by mouth in the morning. Active magnesium oxide 500 mg oral tablet (7 sources) Start: 02-26-2023 take 1 tablet by mouth once daily magnesium oxide 500 mg oral tablet 500 mg = 1 tab(s), Oral, Daily, Refills(s) 0 Start Date: 02/26/23 Status: Ordered take 1 capsule by mouth in the orning Magnesium Oxide -Mg Supplement (RA Magnesium) 500 MG capsule Take 1 each by mouth in the morning. Active pantoprazole 40 mg delayed release oral tablet (7 sources) Proton Pump Inhibitor Start: 02-26-2023 take [...] tofacitinib 11 mg extended release oral tablet (6 sources) Start: 02-26-2023 take 1 tablet by [...] conditions (not mental disorders or infectious disease) (13 sources) Encounter for screening for malignant neoplasm [...] 03-08-2024 Episodic Other aftercare (4 sources) Other roasterman (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; Translations: [OTH SENIOR CARE CURRENT DRUG THERAPY] Onset: 08-25-2022 Episodic Other bone disease and musculoskeletal deformities (4 sources) Other specified disorders of bone density and structure, other site; Translations: [OTH D/O BONE DEN STRUCT OTH SITE] Onset: 08-28-2022 Episodic Residual codes; unclassified (2 sources) Other [...] Test Name Value Interpretation Reference Range Facility IGP,APTIMA HPV,AGE GDLNon AGE GDLN ACOG TESTING Note . [facility] Comment on above: TESTS RESULT FLAG UN ITS REF RANGE LAB Clinician Provided Cytology Information Source.............Vagina No. of containers..01 ThinPrep Vial Age Vesna BARRETO Sona... 28 FLAG LEGEND: L-Low Normal,H-High Normal,LL-Alert Low,HH-Alert High <-Panic Low,>-Panic High,A-Abnormal,AA-Critical Abnormal Performed at: 01 =[address] [address] Jerrica Kam MD, HPV APTIMA Negative Negative [facility] Comment on above: This nucleic acid am plification test detects fourteen high- risk HPV types (16,18,31,33,35,39,45,51,52,56,58,59,66,68) without differentiation. Performed at: =[address] [id number] [employer] [place]: Jerrica Kam MD, Phone: [phone] Performed at: - [address] [id number] [employer] [place]: Jerrica Kam MD, Phone: [phone] IGP, APTIMA HPV, RFX 16/18,45 Note . [facility] Comment on above: TESTS RESULT FLAG UN ITS REF RANGE LAB DIAGNOSIS: 02 NEGATIVE FOR INTRAEPITHELIAL LESION OR MALIGNANCY. Specimen adequacy: 02 Satisfactory for evaluation. No endocervical cells are present. This is consistent with a history of hysterectomy. Performed by: 02 Rosa Francis, [employer] ([place]) . 02 Note: Note 02 The Pap smear is a screening test designed to aid in the detection of premalignant and malignant conditions of the uterine cervix. It is not a diagnostic procedure and should not be used as the sole means of detecting cervical cancer. Both false-positive and false-negative reports do occur. Test Methodology: Note 02 This liquid based ThinPrep(R) pap test was screened with the use of an image guided system. HPV Genotype Reflex Note 02 Criteria not met, HPV Genotype not performed. FLAG LEGEND: L-Low Normal,H-High Normal,LL-Alert Low,HH-Alert High <-Panic Low,>-Panic High,A-Abnormal,AA-Critical Abnormal Performed at: 02 [facility] [address] [id number] Jerrica Kam MD, SP[facility] Follow-Upon 10-19-2024 Follow-Up [id number] Yamileth Hernandez 1970 F Date Provider Department Center 10/19/2024 215-TOMAS CLINTON I [facility] Family History Problem Relation Age of Onset Dementia Mother Diabetes Mother Other Mother 59 Coronary artery disease Mother Atrial fibrillation Father Coronary artery disease Father Stroke Father 56 Heart attack Father 62 Family Status - Relation Status Age at Mother Alive Father Alive Level of Service:87805 [place] OFFICE/OUTPATIENT ESTABLISHED MOD MDM 30 MIN () Reason for Visit and Comments: Follow-up [524284] - Extreme tiredness [facility] 08-09-2024 Refill [id number] Yamileth Hernandez 1970 Date Provider Department Center 08/09/2024 TOMAS ROBERTO I [facility] Family History Problem Relation Age of Onset Dementia Mother Diabetes Mother Other Mother 59 Coronary artery disease Mother Atrial fibrillation Father Coronary artery disease Father Stroke Father 56 Heart attack Father 62 Family Status - Relation Status Age at Mother Alive Father Alive Reason for Visit and Comments: Med Refill [181253] - Patient called for refill: triamcinolone (Kenalog) 0.1 % oral paste use in mouth or throat if needed for mucositis/ methylPREDNISolone (Medrol) 4 mg tablet take 1 tablet by mouth in morning take 1/2 tablet by mouth everyday as needed. Please advise. Thanks! [facility] 36on 08-01-2024 36 Called and left deta iled message for patient [facility] Refill [id number] Yamileth Hernandez 1970 Provider Department [place] 08/01/2024 TOMAS ROBERTO I [facility] Family History Problem Relation Age of Onset Dementia Mother Diabetes Mother Other Mother 59 Coronary artery disease Mother Atrial fibrillation Father Coronary artery disease Father Stroke Father 56 Heart attack Father 62 Family Status - Relation Status Age at Mother Alive Father Alive Reason for Visit and Comments: Med Refill [[id number]] [facility] Orders Onlyon 07-28-2024 Orders Only [id number] Yamileth Hernandez 1970 Provider Department [place] 07/28/2024 TOMAS ROBERTO I [facility] Family History Problem Relation Age of Onset Dementia Mother Diabetes Mother Other Mother 59 Coronary artery disease Mother Atrial fibrillation Father Coronary artery disease Father Stroke Father 56 Heart attack Father 62 Family Status - Relation Status Age at Mother Alive Father Alive [facility] 36on 07-26-2024 36 Patient called jus gonzalez if you can put in an order for a DEXA scan for her. She stated that she needed a refill for medrol and triamcinolone. Normal [facility] Telephoneon 07-26-2024 Telephone [id number] Yamileth Hernandez 1970 F Date Provider Department Center 07/26/2024 TOMAS ROBERTO I [facility] Family History Problem Relation Age of Onset Dementia Mother Diabetes Mother Other Mother 59 Coronary artery disease Mother Atrial fibrillation Father Coronary artery disease Father Stroke Father 56 Heart attack Father 62 Family Status - Relation Status Age at Mother Alive Father Alive Reason for Visit and Comments: Request For Order(s) [706] [facility] 06-14-2024 Refill [id number] Yamileth Hernandez 1970 Date Provider Department Center 06/14/2024 MIKHAIL SNIDER [facility] Family History Problem Relation Age of Onset Dementia Mother Diabetes Mother Other Mother 59 Coronary artery disease Mother Atrial fibrillation Father Coronary artery disease Father Stroke Father 56 Heart attack Father 62 Family Status - Relation Status Age at Mother Alive Father Alive Reason for Visit and Comments: Med Refill [[id number]] [facility] Office Visiton 05-22-2024 Follow-up visit [id number] Yamileth Hernandez 1970 Date Provider Department Center 05/22/2024 TODD GUSMAN [facility] Family History Problem Relation Age of Onset Dementia Mother Diabetes Mother Other Mother 59 Coronary artery disease Mother Atrial fibrillation Father Coronary artery disease Father Stroke Father 56 Heart attack Father 62 Family Status - Relation Status Age at Mother Alive Father Alive Level of Service:14056 [place] OFFICE/OUTPATIENT ESTABLISHED LOW MDM 20 MIN Reason for Visit and Comments: Atrial Fibrillation [80] [facility] Follow-Upon 05-04-2024 Follow-Up [id number] Yamileth Hernandez 1970 Date Provider Department Center 05/04/2024 215TOMAS FRANCO I [facility] Family History Problem Relation Age of Onset Dementia Mother Diabetes Mother Other Mother 59 Coronary artery disease Mother Atrial fibrillation Father Coronary artery disease Father Stroke Father 56 Heart attack Father 62 Family Status - Relation Status Age at Mother Alive Father Alive Level of Service:48433 [place] OFFICE/OUTPATIENT ESTABLISHED MOD MDM 30 MIN () Reason for Visit and Comments: Follow-up [[id number]] Normal [facility] Office Visiton 03-08-2024 Follow-up visit [id number] Yamileth Hernandez 1970 F Date Provider Department Center 03/08/2024 68432-MRVYPLTODD RENDON C[facility] Family History Problem Relation Age of Onset Dementia Mother Diabetes Mother Other Mother 59 Coronary artery disease Mother Atrial fibrillation Father Coronary artery disease Father Stroke Father 56 Heart attack Father 62 Family Status - Relation Status Age at Mother Alive Father Alive Level of Service:09048 [place] OFFICE/OUTPATIENT NEW MODERATE MDM 45 MINUTES Normal [facility] Follow-Upon 12-30-2023 Follow-Up [id number] Yamileth Hernandez 1970 F Date Provider Department Center 12/30/2023 215-ALTOROK, NEZAM I [facility] No family history on file Level of Service:82245 [place] OFFICE/OUTPATIENT ESTABLISHED MOD MDM 30 MIN Reason for Visit and Comments: Follow-up [682132] Normal [facility] Cytology Cervical or vaginal smear or scraping studyon 11-16-2023 [facility] Ambulatory Visit Summaryon 0 04-07-2023 [...] lupus erythematosus Varicose veins of legs Normal [facility] General Surgery Office/Clini c Noteon 04-07-2023 [...] SARS-CoV-2 (COVID-19) mRNA-1273 vaccine 08/07/2022 Recorded SARSCoV2 mRNA(iywbgbyfn-bywu-ftwymr) vac 01/01/2022 Recorded SARS-CoV-2 (COVID-19) mRNA-1273 vaccine 06/18/2021 Recorded 2023-02-26: TPV50 SARS-CoV-2 (COVID-19) mRNA-1273 vaccine 10/30/2020 Recorded SARS-CoV-2 (COVID-19) mRNA-1273 vaccine 10/02/[address] [facility] Comment on above: Result Comment: Elec tronically Signed By: RAUDEL PUENTES, Joselo Barrera\Date and Time Signed: 04/07/23 14:01 EDT Reminderson 04-02-2023 Reminders - From: Cristal Gordon LPN To: N - Clinical; Sent: 04/02/2023 11:03:11 EDT Show up: 02/21/2033 07:00:00 EDT Subject: colonoscopy recall Due Date/Time: 03/24/2033 07:00:00 EDT Reminder/Recall Patient due for screening colonoscopy 03/24/2033. Normal [facility] Pathology Noteon 03-29-2023 Pathology Note [id number]#1.00CD:127 [facility] Outside Colonoscopyon 2022 Outside Colonoscopy [id number]#1.00CD:127 [facility] Pre-Certification Formon Pre-Certification Form [id number]#1.00CD:127 [facility] Consent for Procedure/Surger yon 03-05-2023 Consent for Procedure/Surgery [id number]#1.00CD:127 [facility] Facesheeton 03-04-2023 Facesheet [id number]#1.00CD:127 [facility] Ambulatory Visit Summaryon 0 03-03-2023 Ambulatory Visit [...] lupus erythematosus Varicose veins of legs Normal [facility] RAD - CT Reporton 03-03-2023 RAD - CT Report [id number]#1.00CD:127 Normal [facility] Physician Referralon 023 Physician Referral [id number]#1.00CD:[address] [facility] [address] ABD/PELV W CONon 02-13-20 23 [...] IDA SOTO Date: 2023-02-12 09:54 Normal [facility] QUANTIFERON TB GOLD PLUSon 0 02-07-2023 QuantiFERON Criteria Comment Normal [facility] Comment on above: Result Comment: Rehan tiFERON-TB [...] test. Performed By: #### Q NTTB #### [facility] [address] [place] [address] Dr. Jazmyn Saavedra QuantiFERON Incubation Incubation performed. Normal [facility] Comment on above: Performed By: #### Q NTTB #### [facility] [address] [place] [address] Dr. Jazmyn Saavedra QuantiFERON Mitogen Value 6.87 IU/mL Normal [facility] Comment on above: Performed By: #### Q NTTB #### [facility] [address] [place] [address] Dr. Jazmyn Saavedra QuantiFERON Nil Value 0.00 IU/mL Normal [facility] Comment on above: Performed By: #### Q NTTB #### [facility] [address] [place] [address] Dr. Jazmyn Saavedra QuantiFERON TB1 Ag Value 0.00 IU/mL Normal [facility] Comment on above: Performed By: #### Q NTTB #### [facility] [address] [place] [address] Dr. Jazmyn Saavedra QuantiFERON TB2 Ag Value 0.00 IU/mL Normal [facility] Comment on above: Performed By: #### Q NTTB #### [facility] [address] [place] [address] Dr. Jazmyn Saavedra QuantiFERON-TB Gold Plus Negative Normal Negative [facility] Comment on above: Result Comment: No r esponse to M tuberculosis antigens detected. Infection with M tuberculosis is unlikely, but high risk individuals should be considered for additional testing (ATS/IDSA/CDC Clinical Practice Guidelines, 2017). The reference range is an Antigen minus Nil result of <0.35 IU/mL. Chemiluminescence immunoassay methodology Performed By: #### Q NTTB #### [facility] [address] [place] [address] Dr. Jazmyn Saavedra HEP B COREon 02-06-2023 Hep B Core Ab, Tot Negative Normal Negative [facility] Comment on above: Performed By: #### S EDR #### [facility] [address] [place] [address] Dr. Jazmyn Saavedra HEP B SURFACE ANTIGEN SCREEN on 02-06-2023 HBsAg Screen Negative Normal Negative [facility] Comment on above: Performed By: #### H BSANS #### [facility] [address] [address] [address] Jazmyn Saavedra CBC AUTO DIFFon 02-05-2023 BASO # 0.0 103/ul Normal 0.0-0.1 [facility] Comment on above: Performed By: #### C BC #### [facility] [address] [address] [address] Jazmyn Saavedra Basophils/100 WBC (Bld) 0.5 % Normal 0.2-2.0 [facility] Comment on above: Performed By: #### C BC #### [facility] [address] [place] [address] Dr. Jazmyn Saavedra EO # 0.0 103/ul Normal 0.0-0.7 [facility] Comment on above: Performed By: #### C BC #### [facility] [address] [place] [address] Dr. Jazmyn Saavedra Eosinophils/100 WBC (Bld) 0.8 % Critically low 0.9-7.0 [facility] Comment on above: Performed By: #### C BC #### [facility] [address] [place] [address] Dr. Jazmyn Saavedra Erythrocyte distribution width (RBC) [Ratio] 13.2 % Normal 11.0-15.0 [facility] Comment on above: Performed By: #### C BC #### [facility] [address] [place] [address] Dr. Jazmyn Saavedra Hematocrit (Bld) [Volume fraction] 41.1 % Normal 36.0-48.0 [facility] Comment on above: Performed By: #### C BC #### [facility] [address] [place] [address] Dr. Jazmyn Saavedra Hemoglobin (Bld) [Mass/Vol] 13.4 g/dL Normal 12.0-16.0 [facility] Comment on above: Performed By: #### C BC #### [facility] [address] [place] [address] Dr. Jazmyn Saavedra IG # 0.01 10e3/ul Normal 0.00-0.03 [facility] Comment on above: Performed By: #### C BC #### [facility] [address] [place] [address] Dr. Jazmyn Saavedra IG % 0.3 % Normal 0.0-0.5 [facility] Comment on above: Performed By: #### C BC #### [facility] [address] [place] [address] Dr. Jazmyn Saavedra LYMPH # 1.2 103/ul Normal 1.2-3.8 [facility] Comment on above: Performed By: #### C BC #### [facility] [address] [place] [address] Dr. Jazmyn Saavedra Lymphocytes/100 WBC (Bld) 31.9 % Normal 20.5-60.0 [facility] Comment on above: Performed By: #### C BC #### [facility] [address] [place] [address] Dr. Jazmyn Saavedra MANUAL DIFF REQ NO Normal [facility] Comment on above: Performed By: #### C BC #### [facility] [address] [place] [address] Dr. Jazmyn Saavedra MCH (RBC) [Entitic mass] 30.6 pg Normal 26.7-34.0 [facility] Comment on above: Performed By: #### C BC #### [facility] [address] [place] [address] Dr. Jazmyn Saavedra MCHC (RBC) [Mass/Vol] 32.6 g/dL Normal 29.9-35.2 [facility] Comment on above: Performed By: #### C BC #### [facility] [address] [place] [address] Dr. Jamzyn Saavedra MCV (RBC) [Entitic vol] 93.8 fL Normal 81.0-99.0 [facility] Comment on above: Performed By: #### C BC #### [facility] [address] [place] [address] Dr. Jazmyn Saavedra MONO # 0.5 103/ul Normal 0.3-0.8 [facility] Comment on above: Performed By: #### C BC #### [facility] [address] [place] [address] Dr. Jazmyn Saavedra Monocytes/100 WBC (Bld) 14.1 % Critically high 1.7-12.0 [facility] Comment on above: Performed By: #### C BC #### [facility] [address] [address] [address] Jazmyn Saavedra NEUT # 1.9 103/ul Normal 1.4-6.5 [facility] Comment on above: Performed By: #### C BC #### [facility] [address] [place] [address] Dr. Jazmyn Saavedra Neutrophils/100 WBC (Bld) 52.4 % Normal 43.0-75.0 [facility] Comment on above: Performed By: #### C BC #### [facility] [address] [place] [address] Dr. Jazmyn Saavedra Platelet mean volume (Bld) [Entitic vol] 9.4 fL Critically low 9.5-13.5 [facility] Comment on above: Performed By: #### C BC #### [facility] [address] [place] [address] Dr. Jazmyn Saavedra PLT 342 103/ul Normal 150-450 [facility] Comment on above: Performed By: #### C BC #### [facility] [address] [place] [address] Dr. Jazmyn Saavedra RBC 4.38 106/ul Normal 4.20-5.40 [facility] Comment on above: Performed By: #### C BC #### [facility] [address] [place] [address] Dr. Jazmyn Saavedra WBC 3.7 103/ul Critically low 4.0-11.0 [facility] Comment on above: Performed By: #### C BC #### [facility] [address] [place] [address] Dr. Jazmyn Saavedra FREE THYROXINE INDEX T7on FTI 3.20 Normal 1.30-4.50 [facility] Comment on above: Performed By: #### S EDR #### [facility] [address] [address] [address] Jazmyn Saavedra T3U 36.0 % Normal 30.0-39.0 [facility] Comment on above: Performed By: #### S EDR #### [facility] [address] [address] [address] Jazmyn Saavedra T4 [Mass/Vol] 8.90 ug/dL Normal 4.80-13.90 [facility] Comment on above: Performed By: #### S EDR #### [facility] [address] [place] [address] Dr. Jazmyn Saavedra GLYCOHEMOGLOBIN A1Con 2022 ADA RECOMMENDATION SEE BELOW Normal [facility] Comment on above: Result Comment: ADA RECOMMENDED LIMIT 4.0 - 6.0 ADA THERAPEUTIC TARGET < 7.0 ACTION SUGGESTED > 7.0 Performed By: #### S EDR #### [facility] [address] [place] [address] Dr. Jazmyn Saavedra Glucose [Mass/Vol] 123 mg/dL Normal [facility] Comment on above: Performed By: #### S EDR #### [facility] [address] [place] [address] Dr. Jazmyn Saavedra HbA1c (Bld) [Mass fraction] 5.9 % Normal 4.5-6.2 [facility] Comment on above: Performed By: #### S EDR #### [facility] [address] [place] [address] Dr. Jazmyn Saavedra LIPID PROFILEon 02-05-2023 CHOL-HDL RATIO NORM SEE BELOW Normal [facility] Comment on above: Result Comment: 3.3 - 4.4 LOW RISK 4.4 - 7.1 AVERAGE RISK 7.1 - 11.0 MODERATE RISK >11.0 HIGH RISK Performed By: #### S EDR #### [facility] [address] [place] [address] Dr. Jazmyn Saavedra Cholesterol [Mass/Vol] 256 mg/dL Critically high <=200 [facility] Comment on above: Performed By: #### S EDR #### [facility] [address] [address] [address] Jazmyn Saavedra Cholesterol in HDL [Mass/Vol] 108 mg/dL Critically high 40-60 [facility] Comment on above: Performed By: #### S EDR #### [facility] Laboratory [address] [address] [address] Jazmyn Saavedra Cholesterol in LDL [Mass/Vol] 139.4 mg/dL Normal [facility] Comment on above: Performed By: #### S EDR #### [facility] [address] [address] [address] Jazmyn Saavedra Cholesterol.total/ Cholesterol in HDL [Mass ratio] 2.4 {ratio} Normal [facility] Comment on above: Performed By: #### S EDR #### [facility] [address] [address] [address] Jazmyn Saavedra HDL NORMAL > or = 60 mg/dl - LO W CARDIOVASCULAR RISK <40 mg/dl - HIGH CARDIOVASCULAR RISK Normal [facility] Comment on above: Performed By: #### S EDR #### [facility] [address] [address] [address] Jazmyn Saavedra LDL CALC NORMAL SEE BELOW Normal [facility] Comment on above: Result Comment: <100 mg/dl OPTIMAL 100 - 129 mg/dl NEAR OR ABOVE OPTIMAL 130 - 159 mg/dl BORDERLINE HIGH 160 - 189 mg/dl HIGH >190 mg/dl VERY HIGH Performed By: #### S EDR #### [facility] [address] [address] [address] Jazmyn Saavedra Triglyceride [Mass/Vol] 43 mg/dL Normal <=150 [facility] Comment on above: Performed By: #### S EDR #### [facility] [address] [address] [address] Jazmyn Saavedra VLDL CALC 8.6 mg/dL Normal [facility] Comment on above: Performed By: #### S EDR #### [facility] [address] [address] [address] Jazmyn Saavedra PROF 14(COMP METB)on 023 Albumin [Mass/Vol] 4.0 g/dL Normal 3.4-5.0 [facility] Comment on above: Performed By: #### T 7, CMP, LIPID, TSH #### [facility] [address] [address] [address] Jazmyn Saavedra Albumin/Globulin [Mass ratio] 0.9 {ratio} Normal [facility] Comment on above: Performed By: #### T 7, CMP, LIPID, TSH #### [facility] [address] [address] [address] Jazmyn Saavedra ALP [Catalytic activity/Vol] 57 U/L Normal 46-116 [facility] Comment on above: Performed By: #### T 7, CMP, LIPID, TSH #### [facility] [address] [address] [address] Jazmyn Saavedra ALT [Catalytic activity/Vol] 23 U/L Normal 14-59 [facility] Comment on above: Performed By: #### T 7, CMP, LIPID, TSH #### [facility] [address] [place] [address] Dr. Jazmyn Saavedra Anion gap [Moles/Vol] 13.8 mmol/L Normal [facility] Comment on above: Performed By: #### T 7, CMP, LIPID, TSH #### [facility] [address] [place] [address] Dr. Jazmyn Saavedra AST [Catalytic activity/Vol] 23 U/L Normal 15-37 [facility] Comment on above: Performed By: #### T 7, CMP, LIPID, TSH #### [facility] [address] [place] [address] Dr. Jazmyn Saavedra Bilirubin [Mass/Vol] 0.6 mg/dL Normal 0.2-1.0 [facility] Comment on above: Performed By: #### T 7, CMP, LIPID, TSH #### [facility] [address] [place] [address] Dr. Jazmyn Saavedra Calcium [Mass/Vol] 9.6 mg/dL Normal 8.5-10.1 [facility] Comment on above: Performed By: #### T 7, CMP, LIPID, TSH #### [facility] [address] [place] [address] Dr. Jazmyn Saavedra Chloride [Moles/Vol] 100 mmol/L Normal 98-107 [facility] Comment on above: Performed By: #### T 7, CMP, LIPID, TSH #### [facility] [address] [address] [address] Jazmyn Saavedra CO2 [Moles/Vol] 29.9 mmol/L Normal 21.0-32.0 [facility] Comment on above: Performed By: #### T 7, CMP, LIPID, TSH #### [facility] [address] [address] [address] Jazmyn Saavedra Creatinine [Mass/Vol] 0.89 mg/dL Normal 0.55-1.02 [facility] Comment on above: Performed By: #### T 7, CMP, LIPID, TSH #### [facility] [address] [address] [address] Jazmyn Saavedra EGFR-AF GUAMANIAN >60 Normal >=60 [facility] Comment on above: Performed By: #### T 7, CMP, LIPID, TSH #### [facility] [address] [address] [address] Jazmyn Saavedra EGFR-NON AF GUAMANIAN >60 Normal >=60 [facility] Comment on above: Performed By: #### T 7, CMP, LIPID, TSH #### [facility] [address] [address] [address] Jazmyn Saavedra Globulin (S) [Mass/Vol] 4.4 g/dL Normal [facility] Comment on above: Performed By: #### T 7, CMP, LIPID, TSH #### [facility] [address] [address] [address] Jazmyn Saavedra Glucose [Mass/Vol] 89 mg/dL Normal 74-106 [facility] Comment on above: Performed By: #### T 7, CMP, LIPID, TSH #### [facility] [address] [address] [address] Jazmyn Saavedra Potassium [Moles/Vol] 3.7 mmol/L Normal 3.5-5.1 [facility] Comment on above: Performed By: #### T 7, CMP, LIPID, TSH #### [facility] [address] [place] [address] Dr. Jazmyn Saavedra Protein [Mass/Vol] 8.4 g/dL Critically high 6.4-8.2 [facility] Comment on above: Performed By: #### T 7, CMP, LIPID, TSH #### [facility] [address] [place] [address] Dr. Jazmyn Saavedra Sodium [Moles/Vol] 140 mmol/L Normal 136-145 [facility] Comment on above: Performed By: #### T 7, CMP, LIPID, TSH #### [facility] [address] [place] [address] Dr. Jazmyn Saavedra Urea nitrogen [Mass/Vol] 17.0 mg/dL Normal 7.0-18.0 [facility] Comment on above: Performed By: #### T 7, CMP, LIPID, TSH #### [facility] [address] [place] [address] Dr. Jazmyn Saavedra Urea nitrogen/Creatinin e [Mass ratio] 19.1 mg/mg [facility] Comment on above: Performed By: #### T 7, CMP, LIPID, TSH #### [facility] [address] [place] [address] Dr. Jazmyn Saavedra TSHon 02-05-2023 TSH 0.984 uIU/mL Normal 0.358-3.740 [facility] Comment on above: Performed By: #### S EDR #### [facility] [address] [place] [address] Dr. Jazmyn Saavedra PAP ACOG PANEL 2: 30 to 65on 10-07-2022 . . Normal [facility] Comment on above: Result Comment: Perf ormed at: [facility] Performed By: #### S EDR #### [facility] [address] [place] [address] Dr. Jazmyn Saavedra Age Gdln ACOG Testing 30-65 [facility] Comment on above: Performed By: #### S EDR #### [facility] [address] [place] [address] Dr. Jazmyn Saavedra DIAGNOSIS: Comment Normal [facility] Comment on above: Result Comment: NEGA TIVE FOR INTRAEPITHELIAL LESION OR MALIGNANCY. Performed at: [facility] Performed By: #### S EDR #### [facility] [address] [place] [address] Dr. Jazmyn Saavedra HPV Aptima Negative Normal Negative [facility] Comment on above: Result Comment: This nucleic acid amplification test detects fourteen high-risk HPV types (16,18,31,33,35,39,45,51,52,56,58,59,66,68) without differentiation. Performed at: =G Performed By: #### S EDR #### [facility] [address] [address] [address] Jazmyn Saavedra HPV Genotype Reflex Comment Normal [facility] Comment on above: Result Comment: Crit eria not met, HPV Genotype not performed. Performed at: [facility] Performed By: #### S EDR #### [facility] [address] [place] [address] Dr. Jazmyn Saavedra Methodology: Comment Normal [facility] Comment on above: Result Comment: This liquid based ThinPrep(R) pap test was screened with the use of an image guided system. Performed at: [facility] Performed By: #### S EDR #### [facility] [address] [place] [address] Dr. Jazmyn Saavedra Note: Comment Normal [facility] Comment on above: Result Comment: The Pap smear is a screening test designed to aid in the detection of premalignant and malignant conditions of the uterine cervix. It is not a diagnostic procedure and should not be used as the sole means of detecting cervical cancer. Both false-positive and false-negative reports do occur. . Performed at: [facility] Performed By: #### S EDR #### [facility] [address] [address] [address] Jazmyn Saavedra Performed by: Comment Normal [facility] Comment on above: Result Comment: Daryl Calhoun, Car Loader (ASCP) Performed at: [facility] Performed By: #### S EDR #### [facility] [address] [place] [address] Dr. Jazmyn Saavedra Specimen adequacy: Comment Normal [facility] Comment on above: Result Comment: Sati sfactory for evaluation. Endocervical component may not be distinguished in cases of atrophy. Performed at: [facility] Performed By: #### S EDR #### [facility] [address] [place] [address] Dr. Jazmyn Saavedra XR DEXA BONE DENSITYon [...] GILBERT GEORGE Date: 2022-08-28 08:47 Normal [facility] CBC AUTO DIFFon 08-25-2022 BASO # 0.0 103/ul Normal 0.0-0.1 [facility] Comment on above: Performed By: #### S EDR #### [facility] [address] [place] [address] Dr. Jazmyn Saavedra Basophils/100 WBC (Bld) 0.5 % Normal 0.2-2.0 [facility] Comment on above: Performed By: #### S EDR #### [facility] [address] [address] [address] Jazmyn Saavedra EO # 0.1 103/ul Normal 0.0-0.7 [facility] Comment on above: Performed By: #### S EDR #### [facility] [address] [address] [address] Jazmyn Saavedra Eosinophils/100 WBC (Bld) 1.2 % Normal 0.9-7.0 [facility] Comment on above: Performed By: #### S EDR #### [facility] [address] [place] [address] Dr. Jazmyn Saavedra Erythrocyte distribution width (RBC) [Ratio] 13.2 % Normal 11.0-15.0 [facility] Comment on above: Performed By: #### S EDR #### [facility] [address] [place] [address] Dr. Jazmyn Saavedra Hematocrit (Bld) [Volume fraction] 38.4 % Normal 36.0-48.0 [facility] Comment on above: Performed By: #### S EDR #### [facility] [address] [place] [address] Dr. Jazmyn Saavedra Hemoglobin (Bld) [Mass/Vol] 12.6 g/dL Normal 12.0-16.0 [facility] Comment on above: Performed By: #### S EDR #### [facility] [address] [place] [address] Dr. Jazmyn Saavedra IG # 0.01 10e3/ul Normal 0.00-0.03 [facility] Comment on above: Performed By: #### S EDR #### [facility] [address] [place] [address] Dr. Jazmyn Saavedra IG % 0.2 % Normal 0.0-0.5 [facility] Comment on above: Performed By: #### S EDR #### [facility] [address] [place] [address] Dr. Jazmyn Saavedra LYMPH # 1.7 103/ul Normal 1.2-3.8 [facility] Comment on above: Performed By: #### S EDR #### [facility] [address] [place] [address] Dr. Jazmyn Saavedra Lymphocytes/100 WBC (Bld) 40.8 % Normal 20.5-60.0 [facility] Comment on above: Performed By: #### S EDR #### [facility] [address] [place] [address] Dr. Jazmyn Saavedra MANUAL DIFF REQ NO Normal [facility] Comment on above: Performed By: #### S EDR #### [facility] [address] [address] [address] Jazmyn Saavedra MCH (RBC) [Entitic mass] 31.0 pg Normal 26.7-34.0 [facility] Comment on above: Performed By: #### S EDR #### [facility] [address] [place] [address] Dr. Jazmyn Saavedra MCHC (RBC) [Mass/Vol] 32.8 g/dL Normal 29.9-35.2 [facility] Comment on above: Performed By: #### S EDR #### [facility] [address] [place] [address] Dr. Jazmyn Saavedra MCV (RBC) [Entitic vol] 94.3 fL Normal 81.0-99.0 [facility] Comment on above: Performed By: #### S EDR #### [facility] [address] [place] [address] Dr. Jazmyn Saavedra MONO # 0.5 103/ul Normal 0.3-0.8 [facility] Comment on above: Performed By: #### S EDR #### [facility] [address] [place] [address] Dr. Jazmyn Saavedra Monocytes/100 WBC (Bld) 11.9 % Normal 1.7-12.0 [facility] Comment on above: Performed By: #### S EDR #### [facility] [address] [place] [address] Dr. Jazmyn Saavedra NEUT # 1.9 103/ul Normal 1.4-6.5 [facility] Comment on above: Performed By: #### S EDR #### [facility] [address] [place] [address] Dr. Jazmyn Saavedra Neutrophils/100 WBC (Bld) 45.4 % Normal 43.0-75.0 [facility] Comment on above: Performed By: #### S EDR #### [facility] [address] [place] [address] Dr. Jazmyn Saavedra Platelet mean volume (Bld) [Entitic vol] 9.3 fL Critically low 9.5-13.5 [facility] Comment on above: Performed By: #### S EDR #### [facility] [address] [address] [address] Jazmyn Saavedra PLT 309 103/ul Normal 150-450 [facility] Comment on above: Performed By: #### S EDR #### [facility] [address] [address] [address] Jazmyn Saavedra RBC 4.07 106/ul Critically low 4.20-5.40 [facility] Comment on above: Performed By: #### S EDR #### [facility] [address] [address] [address] Jazmyn Saavedra WBC 4.2 103/ul Normal 4.0-11.0 [facility] Comment on above: Performed By: #### S EDR #### [facility] [address] [address] [address] Jazmyn Saavedra CRPon 08-25-2022 CRP [Mass/Vol] mg/L Normal <=1.0 [facility] Comment on above: Performed By: #### C RP, CMP, LIPID #### [facility] [address] [place] [address] Dr. Jazmyn Saavedra LIPID PROFILEon 08-25-2022 CHOL-HDL RATIO NORM SEE BELOW Normal [facility] Comment on above: Result Comment: 3.3 - 4.4 LOW RISK 4.4 - 7.1 AVERAGE RISK 7.1 - 11.0 MODERATE RISK >11.0 HIGH RISK Performed By: #### C RP, CMP, LIPID #### [facility] [address] [address] [address] Jazmyn Saavedra Cholesterol [Mass/Vol] 251 mg/dL Critically high <=200 [facility] Comment on above: Performed By: #### C RP, CMP, LIPID #### [facility] [address] [address] [address] Jazmyn Saavedra Cholesterol in HDL [Mass/Vol] 102 mg/dL Critically high 40-60 [facility] Comment on above: Performed By: #### C RP, CMP, LIPID #### [facility] [address] [address] [address] Jazmyn Saavedra Cholesterol in LDL [Mass/Vol] 135.0 mg/dL Normal [facility] Comment on above: Performed By: #### C RP, CMP, LIPID #### [facility] [address] [address] [address] Jazmyn Saavedra Cholesterol.total/ Cholesterol in HDL [Mass ratio] 2.5 {ratio} Normal [facility] Comment on above: Performed By: #### C RP, CMP, LIPID #### [facility] [address] [address] [address] Jazmyn Saavedra HDL NORMAL > or = 60 mg/dl - LO W CARDIOVASCULAR RISK <40 mg/dl - HIGH CARDIOVASCULAR RISK Normal [facility] Comment on above: Performed By: #### C RP, CMP, LIPID #### [facility] [address] [address] [address] Jazmyn Saavedra LDL CALC NORMAL SEE BELOW Normal [facility] Comment on above: Result Comment: <100 mg/dl OPTIMAL 100 - 129 mg/dl NEAR OR ABOVE OPTIMAL 130 - 159 mg/dl BORDERLINE HIGH 160 - 189 mg/dl HIGH >190 mg/dl VERY HIGH Performed By: #### C RP, CMP, LIPID #### [facility] [address] [address] [address] Jazmyn Saavedra Triglyceride [Mass/Vol] 70 mg/dL Normal <=150 [facility] Comment on above: Performed By: #### C RP, CMP, LIPID #### [facility] [address] [address] [address] Jazmyn Saavedra VLDL CALC 14.0 mg/dL Normal [facility] Comment on above: Performed By: #### C RP, CMP, LIPID #### [facility] [address] [address] [address] Jazmyn Saavedra PROF 14(COMP METB)on 022 Albumin [Mass/Vol] 3.9 g/dL Normal 3.4-5.0 [facility] Comment on above: Performed By: #### C RP, CMP, LIPID #### [facility] [address] [address] [address] Jazmyn Saavedra Albumin/Globulin [Mass ratio] 1.0 {ratio} Normal [facility] Comment on above: Performed By: #### C RP, CMP, LIPID #### [facility] [address] [address] [address] Jazmyn Saavedra ALP [Catalytic activity/Vol] 49 U/L Normal 46-116 [facility] Comment on above: Performed By: #### C RP, CMP, LIPID #### [facility] [address] [address] [address] Jazmyn Saavedra ALT [Catalytic activity/Vol] 17 U/L Normal 14-59 [facility] Comment on above: Performed By: #### C RP, CMP, LIPID #### [facility] [address] [place] [address] Dr. Jazmyn Saavedra Anion gap [Moles/Vol] 10.1 mmol/L Normal [facility] Comment on above: Performed By: #### C RP, CMP, LIPID #### [facility] [address] [place] [address] Dr. Jazmyn Saavedra AST [Catalytic activity/Vol] 19 U/L Normal 15-37 [facility] Comment on above: Performed By: #### C RP, CMP, LIPID #### [facility] [address] [place] [address] Dr. Jazmyn Saavedra Bilirubin [Mass/Vol] 0.5 mg/dL Normal 0.2-1.0 [facility] Comment on above: Performed By: #### C RP, CMP, LIPID #### [facility] [address] [place] [address] Dr. Jazmyn Saavedra Calcium [Mass/Vol] 9.3 mg/dL Normal 8.5-10.1 [facility] Comment on above: Performed By: #### C RP, CMP, LIPID #### [facility] [address] [address] [address] Jazmyn Saavedra Chloride [Moles/Vol] 103 mmol/L Normal 98-107 [facility] Comment on above: Performed By: #### C RP, CMP, LIPID #### [facility] [address] [address] [address] Jazmyn Saavedra CO2 [Moles/Vol] 30.1 mmol/L Normal 21.0-32.0 [facility] Comment on above: Performed By: #### C RP, CMP, LIPID #### [facility] [address] [address] [address] Jazmyn Saavedra Creatinine [Mass/Vol] 0.80 mg/dL Normal 0.55-1.02 [facility] Comment on above: Performed By: #### C RP, CMP, LIPID #### [facility] [address] [address] [address] Jazmyn Saavedra EGFR-AF GUAMANIAN >60 Normal >=60 [facility] Comment on above: Performed By: #### C RP, CMP, LIPID #### [facility] [address] [address] [address] Jazmyn Saavedra EGFR-NON AF GUAMANIAN >60 Normal >=60 [facility] Comment on above: Performed By: #### C RP, CMP, LIPID #### [facility] [address] [address] [address] Jazmyn Saavedra Globulin (S) [Mass/Vol] 4.1 g/dL Normal [facility] Comment on above: Performed By: #### C RP, CMP, LIPID #### [facility] [address] [address] [address] Jazmyn Saavedra Glucose [Mass/Vol] 92 mg/dL Normal 74-106 [facility] Comment on above: Performed By: #### C RP, CMP, LIPID #### [facility] [address] [address] [address] Jazmyn Saavedra Potassium [Moles/Vol] 4.2 mmol/L Normal 3.5-5.1 [facility] Comment on above: Performed By: #### C RP, CMP, LIPID #### [facility] [address] [address] [address] Jazmyn Saavedra Protein [Mass/Vol] 8.0 g/dL Normal 6.4-8.2 [facility] Comment on above: Performed By: #### C RP, CMP, LIPID #### [facility] [address] [address] [address] Jazmyn Saavedra Sodium [Moles/Vol] 139 mmol/L Normal 136-145 [facility] Comment on above: Performed By: #### C RP, CMP, LIPID #### [facility] [address] [address] [address] Jazmyn Saavedra Urea nitrogen [Mass/Vol] 20.0 mg/dL Critically high 7.0-18.0 [facility] Comment on above: Performed By: #### C RP, CMP, LIPID #### [facility] [address] [address] [address] Jazmyn Saavedra Urea nitrogen/Creatinin e [Mass ratio] 25.0 mg/mg Normal [facility] Comment on above: Performed By: #### C RP, CMP, LIPID #### [facility] [address] [place] [address] Dr. Jazmyn Saavedra SED RATE [facility] 2021 SED RATE 47 mm/hr Critically high <=30 [facility] Comment on above: Performed By: #### S EDR #### [facility] [address] [place] [address] Dr. Jazmyn Saavedra ASYMPTOMATIC COVID-19 ANTIGE Non 05-18-2022 EUA Statement SEE BELOW Normal [facility] Comment on above: [...] sooner. Performed By: #### S EDR #### [facility] [address] [address] [address] Jazmyn Saavedra SARS-CoV-2 (COVID-19) RNA NILES+probe Ql (Unsp spec) Positive Critically abnormal NEGATIVE [facility] Comment on above: Result Comment: SARS -CoV-2 antigen present; does not rule out coinfection with other pathogens. Performed By: #### S EDR #### [facility] [address] [place] [address] Dr. Jazmyn Saavedra Covid-19 PCR ([facility])on SARS-CoV-2 (COVID-19) RNA NILES+probe Ql (Unsp spec) Detected Critically abnormal NOT DETECTED [facility] Comment on above: Result Comment: This test is not yet approved or cleared by the [place] FDA. When there are no FDA-approved or cleared tests available, and other criteria are met, FDA can make tests available under an emergency access mechanism called an Emergency Use Authorization (EUA). The EUA for this test is supported by the Family Service Assistant of Health and Human Service's declaration that [...] used). Performed By: #### C VDTB #### [facility] [address] [place] [address] Dr. Jazmyn BARLOW MULTI-CANCER PANELon 02-12-2021 RESULT Results to be mailed directly to physician's office by reference lab. Normal [facility] Comment on above: Result Comment: Test performed by [facility] [address] [place] [address], [place] [id number] No result expected. For billing and tracking purposes only. Performed By: #### 3 [id number] #### [facility] [address] [facility] [place] [address], [facility] Vital Signs Date Time Vital Sign Value Performing Clinician Facility 11-23-2024 09:55-0500 Body mass index (BMI) [Ratio] 25.63 kg/m2 Easton Jassi DO Work Phone: [facility] 11-23-2024 09:55-0500 Body weight 69.85 kg Easton Jassi DO Work Phone: [facility] 11-23-2024 09:55-0500 Diastolic blood pressure 72 mm[Hg] Easton Jassi DO Work Phone: [facility] 11-23-2024 09:55-0500 Systolic blood pressure 124 mm[Hg] Easton Jassi DO Work Phone: [facility] 11-16-2023 11:39-0500 Body mass index (BMI) [Ratio] 24.96 kg/m2 Easton Jassi DO Work Phone: [facility] 11-16-2023 11:39-0500 Body weight 68.04 kg Easton Jassi DO Work Phone: [facility] 11-16-2023 11:39-0500 Diastolic blood pressure 72 mm[Hg] Easton Jassi DO Work Phone: [facility] 11-16-2023 11:39-0500 Systolic blood pressure 118 mm[Hg] Easton Jassi DO Work Phone: [facility] 03-03-2023 14:35-0400 Blood Pressure Location Joselo STARKS [facility] 03-03-2023 14:35-0400 Diastolic blood pressure 68 mm[Hg] Joselo STARKS [facility] 03-03-2023 14:35-0400 Heart rate 68 /min Joselo STARKS [facility] 03-03-2023 14:35-0400 Respiratory rate 16 /min Joselo STARKS [facility] 03-03-2023 14:35-0400 Systolic blood pressure 114 mm[Hg] Joselo STARKS [facility] [place] Encounters Encounter Date Encounter Type Care Provider Facility Start: 11-23-2024 End: 11-23-2024 Bamboo flowsheet Easton Jassi DO Work Phone: [facility] Start: 11-23-2024 End: 11-28-2024 Bamboo flowsheet Easton Jassi DO Work Phone: [facility] Start: 11-23-2024 End: 11-28-2024 Clinisync Result Encounter Easton Jassi DO Work Phone: [facility] Department Unsolicited Start: 11-23-2024 End: 11-23-2024 ambulatory EASTON ANDERSONO Not Available Start: 11-23-2024 End: 11-23-2024 Patient encounter procedure Easton Jassi DO Work Phone: [facility] Start: 11-23-2024 End: 11-23-2024 Periodic preventive med est patient 40-64yrs Easton Jassi DO Work Phone: [facility] Comment on above: Well woman exam with routine gynecological exam; Breast cancer screening by mammogram; Encounter for screening for osteoporosis Start: 10-19-2024 End: 10-19-[facility]: 05-22-2024 End: 05-22-2024 ambulatory [facility] Start: 05-04-2024 End: 05-04-2024 [facility] Start: 03-08-2024 End: 03-08-2024 ambulatory [facility] Start: 12-30-2023 End: 12-30-2023 [facility] Start: 11-16-2023 End: 11-16-2023 Postop follow up visit related to original px Easton Jassi DO Work Phone: [facility] Comment on above: Encounter for repeat Pap smear due to previous insuff cervical cells Start: 04-07-2023 End: 04-08-2023 [facility] Start: 04-07-2023 End: 04-07-2023 Patient encounter procedure Joselo R NILL General Surgery Nill/Said Arvind Start: 03-24-2023 End: 03-25-2023 ambulatory Joselo R NILL Facility:CD:[id number] Start: 03-03-2023 End: 03-04-2023 ambulatory [facility] Start: 03-03-2023 End: 03-03-2023 Patient encounter procedure Joselo R NILL General Surgery Nill/Said Arvind Start: 02-18-2023 ambulatory Mariza Hoy Facility:[facility] Start: 02-12-2023 Encounter for genera l adult medical examination without abnormal findings MARIZA HOY [facility] Start: 02-12-2023 End: 02-13-2023 ambulatory MARIZA WRIGHT [...] Date Procedure Procedure Detail Performing Clinician Start: 11-23-2024 IGP,APTIMA HPV,AGE GDLN Eastondelia [employer] Work Phone: Start: 11-16-2023 Microscopic observation [Identifier] in Cervix by Cyto stain Eastondelia [employer] Phone: Start: 11-16-2023 Cytp cerv/vag auto thin layer prep mnl screen Easton [employer] Phone: Start: 03-24-2023 Colonoscopy Eastondelia [facility] Work Phone: Start: 03-24-2023 Colonoscopy Joselo STARKS Start: 03-24-2023 Esophagogastroduodenoscopy Joselo STARKS [facility] Start: 09-23-2022 Microscopic observation [Identifier] in Cervix by Cyto stain Easton [employer] Work Phone: Start: 07-24-2015 Colonoscopy Joselo STARKS [facility] Start: 02-01-2007 Colonoscopy Joselo STARKS Bilateral mastectomy Joselo STARKS Biopsy of breast Joselo Galeas section Joselo Galeas Excision of cervical intervertebral disc Joselo STARKS [facility] Excision of lymph node Tony flori STARKS Comment on above: left inguinal Excision of salivary gland M marco STARKS Comment on above: x2 Granuloma (morpholog ic abnormality) Joselo STARKS [employer] Comment on above: x 2 History of radiofreq uency ablation operation for arrhythmia Joselo STARKS Total abdominal hyst erectomy with bilateral salpingo-oophorectomy Joselo STARKS [facility] Plan of Treatment Date Care Activity Detail Author Start: 03-24-2033 Screening for malignant neoplasm of colon [facility] Start: 11-16-2028 Screening for malignant neoplasm of cervix [facility] Start: 09-23-2027 Screening for malignant neoplasm of cervix [facility] Start: 11-28-2025 End: 11-28-2025 Patient encounter procedure 11/28/2025 1:00 PM EST Office Visit [facility] [address] [place] [id number] Easton Keene, DO [address] [place] [address] [facility] Start: 01-27-2025 Screening for malignant neoplasm of colon FIT-DNA [facility] Start: 11-20-2024 End: 11-20-2024 Patient encounter procedure 11/20/2024 4:00 PM EST Office Visit [facility] [address] [place] [id number] Easton Keene, DO [address] [place] [address] [facility] Start: 06-04-2023 Influenza vaccination Influenza Vacc ine (#1) [facility] Start: 2008 Screening for malignant neoplasm of breast Mammogram [facility] Start: 1968 Screening for malignant neoplasm of colon [facility] THIN PREP TIS PAP AN D HR HPV DNA THIN PREP TIS PAP AND HR HPV DNA Pathology and Cytology Routine Well woman exam with routine gynecological exam Ordered: 11/23/2024 [facility] Work Phone: Comment on above: Ordered: 11/23/2024 Immunizations Immunization Date Immunization Notes Care Provider [facility] 08-07-2022 SARS-CoV-2 (COVID-19 ) mRNA-1273 vaccine Joselo STARKS [facility] [place] 01-01-2022 SARS-CoV-2 mRNA (cyluokpwiaw-iwki-vakrq se) vaccine Joselo SCANLONL [facility] [place] 06-18-2021 SARS-CoV-2 (COVID-19 ) mRNA-1273 vaccine Joselo SCANLONL [facility] [place] Comment on above: Result Comment: 2022: [id number] 10-30-2020 SARS-CoV-2 (COVID-19 ) mRNA-1273 vaccine Joselo STARKS [facility] [place] 10-02-2020 SARS-CoV-2 (COVID-19 ) mRNA-1273 vaccine Joselo STARKS [facility] [place] Payers Date Payer Category Payer [place] [employer] BC[employer] [id number] 2022 Unknown BCBS BCBS xxxxxx [id number] 2022-Present [phone] [id number] [place], [place] [id number] 2022 Unknown [id number] 2019 Unknown [id number] 1968 Unknown [id number] [id number]. 593 1968 Unknown [id number] 2.16.840.1.866603.3.579.2. 593 1968 Unknown [id number] 2.16.840.1.328398.3.579.2. 593 1968 Unknown [id number] 2.16.840.1.993611.3.579.2. 593 1968 Unknown [id number] 2.16.840.1.690502.3.579.2. 593 1968 Unknown [id number] 2.16.840.1.017539.3.579.2. 593 1968 Unknown [id number] 2.16.840.1.783816.3.579.2. 593 1968 Unknown [id number] 2.16.840.1.013933.3.579.2. 593 1968 Unknown [id number] 2.16.840.1.449344.3.579.2. 593 1968 Unknown [id number] 2.16.840.1.540271.3.579.2. 727 1968 Unknown [id number] 2.16.840.1.701149.3.579.2. 727 1968 Unknown [id number] 2.16.840.1.416767.3.579.2. 727 1968 Unknown [id number] 2.16.840.1.813376.3.579.2. 1259 1959 Self-pay [id number] Unknown [id number] [id number]. 593 Social History Date Type Detail Facility Start: 03-03-2023 End: 09-24-2023 Tobacco smoking status Never smoked tobacco (finding) [facility] Tobacco smoking status Never Gener [facility] Start: 09-24-2023 End: 11-23-2024 Sex [address] Female 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 female who presents for Gynecologic Exam Patient presents today for Annual Exam. MEDICATIONS Current Outpatient Medications Medication Instructions aspirin 81 mg, Oral, Once calcium carbonate 1,500 mg, Oral, Daily RT levothyroxine (SYNTHROID, LEVOXYL) 100 mcg, Oral, Every morning, Take on an empty stomach. liothyronine (CYTOMEL) 5 mcg, Oral, Daily Magnesium Oxide -Mg Supplement (RA Magnesium) 500 MG capsule 1 each, Oral, Daily RT pantoprazole (PROTONIX) 40 mg, Oral, Every evening tofacitinib ER (XELJANZ XR) 11 mg, Oral, Daily RT ALLERGIES Allergies Allergen Reactions Benzoyl Peroxide Other Reaction(s): burning/red rash Sulfa Antibiotics Other Reaction(s): rash/nausea Other Reaction(s): Other, Unknown Sulfamethoxazole-Trimethoprim Rash Wound Dressing Adhesive Unknown Other Reaction(s): redness/sores Other reaction(s): Rash, Other, redness/sores Other Reaction(s): Rash, Other Other Reaction(s): Hives / Skin Rash PROBLEMS Active Ambulatory Problems Diagnosis Date Noted No Active Ambulatory Problems Resolved Ambulatory Problems Diagnosis Date Noted No Resolved Ambulatory Problems Past Medical History: Diagnosis Date Arthritis BMI 22.0-22.9, adult Encounter for gynecological examination (general) (routine) without abnormal findings Herniated cervical disc without myelopathy History of breast cancer Hypothyroidism (CMS/HCC) Invasive ductal carcinoma of breast, female, left (CMS/HCC) Lupus Orthostatic hypertension (CMS/HCC) Primary Sjogren's syndrome (HCC) (CMS/HCC) Supraventricular tachycardia (CMS/HCC) HISTORY PAST MEDICAL HISTORY SOCIAL HISTORY Past Medical History: Diagnosis Date Arthritis BMI 22.0-22.9, adult Encounter for gynecological examination (general) (routine) without abnormal findings Herniated cervical disc without myelopathy History of breast cancer Hypothyroidism (CMS/HCC) Invasive ductal carcinoma of breast, female, left (CMS/HCC) Lupus Orthostatic hypertension (CMS/HCC) Primary Sjogren's syndrome (HCC) (CMS/HCC) Supraventricular tachycardia (CMS/HCC) Social History Tobacco Use Smoking status: Never Smokeless tobacco: Not on file Substance Use Topics Alcohol use: Yes Drug use: Never FAMILY HISTORY Family History Problem Relation Name Age of Onset Heart disease Mother Diabetes Mother Heart disease Father Other (CVA (cerebral infarction)) Father SURGICAL HISTORY Past Surgical History: Procedure Laterality Date BREAST [...] SVT TOTAL ABDOMINAL HYSTERECTOMY W/ BILATERAL SALPINGOOPHORECTOMY 2014 REVIEW OF SYSTEMS Review of Systems: Review of Systems All other systems reviewed and are negative. OBJECTIVE Objective: Physical Exam Constitutional: Appearance: Normal appearance. She is well-developed. Genitourinary: Vulva normal. Breasts: Right: Absent. Left: Absent. Cardiovascular: Rate and Rhythm: Normal rate and regular rhythm. Pulmonary: Effort: Pulmonary effort is normal. Breath sounds: Normal breath sounds. Abdominal: General: Bowel sounds are normal. There is no distension. Palpations: Abdomen is soft. Tenderness: There is no abdominal tenderness. There is no guarding or rebound. Musculoskeletal: General: No swelling. Normal range of motion. Right lower leg: No edema. Left lower leg: No edema. Neurological: Mental Status: She is alert and oriented to person, place, and time. Skin: General: Skin is warm and dry. Psychiatric: Mood and Affect: Mood normal. Behavior: Behavior normal. Vitals and nursing note reviewed. Exam conducted with a lithographic press operator present. Vitals: Estimated body mass index is 25.63 kg/m as calculated from the following: Height as of 09/23/22: 5' 5 . Weight as of this encounter: 154 lb. BP: 124/72 No LMP recorded. Patient has had a hysterectomy. ASSESSMENT & PLAN ICD-10-CM 1. Well woman exam with routine gynecological exam Z01.419 THIN PREP TIS PAP AND HR HPV DNA 2. Breast cancer screening by mammogram Z12.31 CANCELED: Bilateral screening mammogram CANCELED: Bilateral screening mammogram 3. Encounter for screening for osteoporosis Z13.820 CANCELED: DEXA bone density Annual: Patient presents today for an annual exam. Patient states she is doing well and has no complaints. Pap was obtained without difficulty and patient did not need to have mammogram done as she has had a bilateral mastectomy. Patient stated that Oncologist voiced she no longer needs them. Follow Up: Patient is to return in one year for annual unless needed otherwise. Documented by Vibha Jordan LPN on behalf of: Easton Keene DO documented in this encounter [facility] 10-19-2024 Note Attestation signed by Tomas Clinton [...] of 10/28, patient says she did in [place] on 08/27 and will arrange to get [...] Seen by Dr Clinton and Dr Matamoros [facility] 05-22-2024 Note [place] [facility] Note Reason for cardiology [...] post ablation about 20 years ago at [facility]. History of pericarditis remotely. She has history of lupus/rheumatoid arthritis, hypothyroidism, and GERD. She presented to [facility] ED 02/05/2024 for palpitations and SOB. [...] did not advise anticoagulation due to low [id number] score of 1. Few weeks ago she [...] Disp: , Rfl: (more content not included)... [facility] 05-04-2024 Note Attestation signed by Tomas Clinton [...] Seen by Dr Clinton and Dr Matamoros [facility] 03-08-2024 Note [place] [facility] Note Reason for cardiology consult: Ref from Dr. Mariza Wright for afib. Chief Complaint: Palpitation HPI: Teetee Hernandez is a 54 y.o. female with prior history of SVT status post ablation about 20 years ago at [facility]. History of pericarditis remotely. She has history of lupus/rheumatoid arthritis, hypothyroidism, and GERD. She presented to [facility] ED 02/05/2024 for palpitations and SOB. [...] did not advise anticoagulation due to low [id number] score of 1. Few weeks ago she [...] BMI 24.42 kg/m??? (more content not included)... [facility] 12-30-2023 Note Subjective Patient ID: Teetee Hernandez [...] more symptom control; side effects including increased [facility] 11-16-2023 History of Present illness Narrative Reason [...] SVT TOTAL ABDOMINAL HYSTERECTOMY W/ BILATERAL SALPINGOOPHORECTOMY 2014 Allergies Allergen Reactions Benzoyl Peroxide Other Reaction(s): [...] Easton Keene DO documented in this encounter [facility] 03-03-2023 Note Chief Complaint [...] History of pericar (more content not included)... [facility] Comment on above: Result Comment: Elec [...] authenticated by: IDA SOTO Date: 2023-02-04 18:18 [facility] 02-04-2023 Note PROCEDURE: XR HIP LT 2 3V WO PELVIS COMPARISON: None. HISTORY: Rheumatoid factor positive rheumatoid arthritis FINDINGS: BONES:No acute fracture or dislocation. No significant degenerative changes. Heterotopic ossification superior to the greater trochanter SOFT TISSUES:Negative. No visible soft tissue swelling. EFFUSION:None visible. OTHER: Negative. IMPRESSION: No evidence of erosive or inflammatory arthritis Electronically authenticated by: IDA SOTO Date: 2023-02-04 18:17 [facility] 02-04-2023 Note PROCEDURE: XR FOOT R T MIN 3 VIEWS COMPARISON: None. HISTORY: Rheumatoid factor positive rheumatoid arthritis FINDINGS: BONES:No acute fracture or dislocation. Mild enthesopathic spurring of the calcaneus at the Achilles insertion. SOFT TISSUES:Negative. No visible soft tissue swelling. EFFUSION:None visible. OTHER: Negative. IMPRESSION: Mild calcaneal Achilles enthesopathy Electronically authenticated by: IDA SOTO Date: 2023-02-04 18:16 [facility] Evaluation + Plan note No data available for this section General Surgery [place] Evaluation note Diagnosis Encounter for repeat Pap smear due to previous insuff cervical cells documented [facility] Well woman exam with routine gynecological exam Routine gynecological examination Breast cancer screening by mammogram Encounter for screening for osteoporosis [facility] No data available for this section General Surgery [place] Progress note No data available for this section General Surgery [place] Summary Purpose Family History No Family History Records FoundNo Family History Records FoundNo Family History Records FoundNo Family History Records FoundNo Family History Records Found Advance Directives No Advanced Directives Records FoundNo Advanced Directives Records FoundNo Advanced Directives Records FoundNo Advanced Directives Records FoundNo Advanced Directives Records Found Additional Source Comments INFORMATION SOURCE (unrecogn ized section and content) DATE CREATED AUTHOR 03/16/2021 [facility] DATE CREATED AUTHOR AUTHOR'S ORGANIZ ATION 02/15/2023 [facility] DATE CREATED AUTHOR AUTHOR'S ORGANIZ ATION 04/08/2023 [facility] DATE CREATED AUTHOR AUTHOR'S ORGANIZ ATION 10/22/2024 [facility] DATE CREATED AUTHOR AUTHOR'S ORGANIZ ATION 11/25/2024 [facility] Specialists EPIC Patient Care team informatio n (unrecognized section and content) Equipment Manager Relationship Specialty Start Date End Date Mariza Wright MD [address] [place] [address] PCP - General 09/27/23 Equipment Manager Relationship Specialty Start Date End Date Mariza Wright MD [address] [place] [address] PCP - General 09/27/23 Equipment Manager Relationship Specialty Start Date End Date Mariza Wright MD [address] [place] [address] PCP - General 09/27/23 Equipment Manager Relationship Specialty Start Date End Date Mariza Wright MD [address] [place] [address] PCP - General 09/27/23 Reason for Visit (unrecogniz ed section and content) Reason Comments Well Women Visit Pt present today for rpt pap due to insufficient cells in last pap 10/28/2023 Reason Comments Gynecologic Exam FOR RECORDS PERTAINING TO PATIENTS WHO ARE [...] BE BASED ON THE PRIMARY CLINICAL RECORDS. [facility] [employer] [facility]. provides no warranty or guarantee of the accuracy or completeness of information in this document.
[2024-12-08 16:31] LABS: Basophils Percent Auto 0.7 % (0.2-2.0); Eosinophils Percent Auto 0.9 % (0.9-7.0); Hematocrit 39.1 % (36.0-48.0); Hemoglobin 12.6 g/dL (12.0-16.0); Immature Granulocytes Abs Auto 0.01 10^3/uL (0.00-0.03); Immature Granulocytes Pct Auto 0.2 % (0.0-0.5); Lymphocytes Absolute Auto 1.9 10^3/uL (1.2-3.8); Lymphocytes Percent Auto 40.9 % (20.5-60.0); Mean Corpuscular HGB Conc 32.2 g/dL (29.9-35.2); Mean Corpuscular Hemoglobin 30.4 pg (26.7-34.0); Mean Corpuscular Volume 94.4 fL (81.0-99.0); Monocytes Absolute Auto 0.7 10^3/uL (0.3-0.8); Neutrophils Absolute Auto 1.9 10^3/uL (1.4-6.5); Neutrophils Percent Auto 41.3 % (43.0-75.0); Platelet Count 325 10^3/uL (150-450); Red Blood Count 4.14 10^6/uL (4.20-5.40); White Blood Count 4.6 10^3/uL (4.0-11.0)
[2024-12-08 16:37] LABS: Microalbumin Urine Random <1.3 mg/dL (<=30.0)
[2024-12-08 16:50] LABS: Creatine Kinase 127 U/L (26-192); Myoglobin 39 ng/mL (9-82)
== END 2024-12-08 16:07 | disposition home or self-care (01) ==
LOC: LAB 16:08
PROVIDERS: PCP Family Medicine; Visit Provider Family Medicine
DX: R10.9 Unspecified abdominal pain (principal)
CPT/HCPCS: 36415; 82043; 82550; 83874; 85025

== ENCOUNTER 2024-12-11 08:13 | Outpatient (REF) | payer BC, SELFPAY ==
--- OUTSIDE RECORDS SUMMARY | 2024-12-11 08:27 | XMS_ITS | CCD ---
Author Organization [facility] Care Team Providers Care Skiagrapher Name Role Phone SILVIAYLIBBYMARIZA Consulting Unavailable HOY, [...] Admitting Unavailable Hoy, Mariza Primary Care Physician [phone] Mariza Wright Referring Unavailable Joselo STARKS Attending Unavailable Joselo STARKS Attending Unavailable Joselo STARKS Attending Unavailable Mariza Wright MD Primary Care Provider [phone] TODD RENDON Attending Unavailable TOMAS CLINTON I Attending Unavailable TODD RENDON Attending Unavailable TOMAS CLINTON I Attending Unavailable TOMAS CLINTON I Attending Unavailable EASTON KEENE Attending Unavailable Allergies Allergy Classification Reported Allergen(s) Allergy Type Date of Onset Reaction(s) Facility (2 sources) Benzoyl Peroxide; Translations: [BENZOYL PEROXIDE] Drug Allergy 07-22-20 15 [facility] Repository (1 source) Desonide Drug Allergy 04-05-20 13 [facility] (1 source) Sulfonamides (Antibiotic) Drug allergy (disorder) 04-05-20 13 [facility] (1 source) Misc-Other; Translations: [Misc-Other] Propensity to adverse reactions (disorder) 07-22-20 15 [facility] (3 sources) Sulfonamides (Antibiotic); Translations: [sulfa drugs] Drug allergy Discoloration of skin (finding) [facility] [place] (5 sources) Benzoyl Peroxide Drug Allergy 09-20-20 23 [facility] (6 sources) Sulfamethoxazole / Trimethoprim; Translations: [SULFAMETHOXAZOLE-T RIMETHOPRIM] Drug Allergy 02-02-20 23 Rash [facility] (5 sources) Sulfonamides (Antibiotic) Drug Allergy 09-20-20 23 [facility] Healthcare Work Phone: (5 sources) Wound Dressing Adhesive Drug Allergy 09-21-20 14 Unknown [facility] (1 source) Adhesive agent; Translations: [ADHESIVE] Propensity to adverse reactions to drug (disorder) 09-21-20 14 [facility] Repository (1 source) Sulfonamides (Antibiotic); Translations: [SULFA (SULFONAMIDE ANTIBIOTICS)] Propensity to adverse reactions to drug (disorder) 07-31-20 14 [facility] Repository (1 source) ADHESIVE TAPE-SILICONES; Translations: [ADHESIVE TAPE-SILICONES] Propensity to adverse reactions to drug (disorder) 10-07-19 22 [facility] Repository Medications Current Medications Medication Drug [...] 03-08-2024 Episodic Other aftercare (4 sources) Other remote computer terminal operator (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 Performed at: =[address] [id number] Client Advocate: Jerrica Kam MD, Phone: [phone] Performed at: - [address] [id number] Client Advocate: Jerrica Kam MD, Phone: [phone] IGP, APTIMA HPV, RFX 16/18,45 Note . [facility] Comment on above: TESTS RESULT FLAG UN ITS REF RANGE LAB DIAGNOSIS: 02 NEGATIVE FOR INTRAEPITHELIAL LESION OR MALIGNANCY. Specimen adequacy: 02 Satisfactory for evaluation. No endocervical cells are present. This is consistent with a history of hysterectomy. Performed by: 02 Rosa Francis, Slicing Machine Operator/Tender ([place]) . 02 Note: Note 02 The Pap [...] High,A-Abnormal,AA-Critical Abnormal Performed at: 02 [facility] [address] [address] Jerrica Kam MD, [facility] Healthcare Follow-Upon 10-19-2024 Follow-Up [id number] Yamileth Hernandez 1970 F Date Provider Department Center 10/19/2024 215-TOMAS [place] I C [facility] Family History Problem Relation Age of Onset Dementia Mother Diabetes Mother Other Mother 59 Coronary artery disease Mother Atrial fibrillation Father Coronary artery disease Father Stroke Father 56 Heart attack Father 62 Family Status - Relation Status Age at Mother Alive Father Alive Level of Service:58172 UT OFFICE/OUTPATIENT ESTABLISHED MOD MDM 30 MIN () Reason for Visit and Comments: Follow-up [400432] - Extreme tiredness [facility] Refillon 08-09-2024 Refill [id number] Yamileth Hernandez 1970 Date Provider Department Center 08/09/2024 TOMAS ROBERTO I [facility] [place] [place] R[facility] Family History Problem Relation Age of Onset Dementia Mother Diabetes Mother Other Mother 59 Coronary artery disease Mother Atrial fibrillation Father Coronary artery disease Father Stroke Father 56 Heart attack Father 62 Family Status - Relation Status Age at Mother Alive Father Alive Reason for Visit and Comments: Med Refill [[id number]] - Patient called for refill: triamcinolone (Kenalog) 0.1 % oral paste use in mouth or throat if needed for mucositis/ methylPREDNISolone (Medrol) 4 mg tablet take 1 tablet by mouth in morning take 1/2 tablet by mouth everyday as needed. Please advise. Thanks! [facility] 36on 08-01-2024 36 Called and left deta iled message for patient [facility]24 Refill [id number] Yamileth Hernandez 1970 Provider Department [place] 08/01/2024 TOMAS ROBERTO I [facility] [place] [place] [facility] Family History Problem Relation Age of Onset Dementia Mother Diabetes Mother Other Mother 59 Coronary artery disease Mother Atrial fibrillation Father Coronary artery disease Father Stroke Father 56 Heart attack Father 62 Family Status - Relation Status Age at Mother Alive Father Alive Reason for Visit and Comments: Med Refill [[id number]] [facility] Orders Onlyon 07-28-2024 Orders Only [id number] Yamileth Hernandez 1970 Provider Department [place] 07/28/2024 TOMAS ROBERTO I [facility] [place] [place] [facility] Family History Problem Relation Age of Onset Dementia Mother Diabetes Mother Other Mother 59 Coronary artery disease Mother Atrial fibrillation Father Coronary artery disease Father Stroke Father 56 Heart attack Father 62 Family Status - Relation Status Age at Mother Alive Father Alive [facility] 36on 07-26-2024 36 Patient called jus gonzalez if you can put in an order for a DEXA scan for her. She stated that she needed a refill for medrol and triamcinolone. Normal [facility] Telephoneon 07-26-2024 Telephone [id number] Yamileth Hernandez 1970 F Date Provider Department Center 07/26/2024 TOMAS ROBERTO I [facility] [place] [place] [facility] Family History Problem Relation Age of Onset Dementia Mother Diabetes Mother Other Mother 59 Coronary artery disease Mother Atrial fibrillation Father Coronary artery disease Father Stroke Father 56 Heart attack Father 62 Family Status - Relation Status Age at Mother Alive Father Alive Reason for Visit and Comments: Request For Order(s) [706] [facility] 06-14-2024 Refill [id number] Yamileth Hernandez 1970 Date Provider Department Center 06/14/2024 MIKHAIL SNIDER [facility] [place] [place] [facility] Family History Problem Relation Age of Onset Dementia Mother Diabetes Mother Other Mother 59 Coronary artery disease Mother Atrial fibrillation Father Coronary artery disease Father Stroke Father 56 Heart attack Father 62 Family Status - Relation Status Age at Mother Alive Father Alive Reason for Visit and Comments: Med Refill [[id number]] [facility] Office Visiton 05-22-2024 Follow-up visit [id number] Yamileth Hernandez 1970 Date Provider Department Center 05/22/2024 TODD [facility] Family History Problem Relation Age of Onset Dementia Mother Diabetes Mother Other Mother 59 Coronary artery disease Mother Atrial fibrillation Father Coronary artery disease Father Stroke Father 56 Heart attack Father 62 Family Status - Relation Status Age at Mother Alive Father Alive Level of Service:87870 UT OFFICE/OUTPATIENT ESTABLISHED LOW MDM 20 MIN Reason for Visit and Comments: Atrial Fibrillation [80] [facility] Follow-Upon 05-04-2024 Follow-Up [id number] Yamileth Hernandez 1970 Date Provider Department Center 05/04/2024 215TOMAS FRANCO I [facility] [place] [place] [facility] Family History Problem Relation Age of Onset Dementia Mother Diabetes Mother Other Mother 59 Coronary artery disease Mother Atrial fibrillation Father Coronary artery disease Father Stroke Father 56 Heart attack Father 62 Family Status - Relation Status Age at Mother Alive Father Alive Level of Service:58585 UT OFFICE/OUTPATIENT ESTABLISHED MOD MDM 30 MIN () Reason for Visit and Comments: Follow-up [[id number]] Normal [facility] Office Visiton 03-08-2024 Follow-up visit [id number] Yamileth Hernandez 1970 F Date Provider Department Center 03/08/2024 [id number] RENDON [facility] Family History Problem Relation Age of Onset Dementia Mother Diabetes Mother Other Mother 59 Coronary artery disease Mother Atrial fibrillation Father Coronary artery disease Father Stroke Father 56 Heart attack Father 62 Family Status - Relation Status Age at Mother Alive Father Alive Level of Service:83883 UT OFFICE/OUTPATIENT NEW MODERATE MDM 45 MINUTES Normal [facility] Follow-Upon 12-30-2023 Follow-Up [id number] Yamileth Hernandez 1970 F Date Provider Department Center 12/30/2023 215-[place], [facility] No family history on file Level of Service:10819 UT OFFICE/OUTPATIENT ESTABLISHED MOD MDM 30 MIN Reason for Visit and Comments: Follow-up [[id number]] Normal [facility] Cytology Cervical or vaginal smear or scraping studyon 11-16-2023 [facility] Ambulatory Visit Summaryon 0 04-07-2023 Ambulatory [...] lupus erythematosus Varicose veins of legs Normal [facility] General Surgery Office/Clini c Noteon [...] SARS-CoV-2 (COVID-19) mRNA-1273 vaccine 08/07/2022 Recorded SARSCoV2 mRNA(gsqnpehra-vmoz-kdftdt) vac 01/01/2022 Recorded SARS-CoV-2 (COVID-19) mRNA-1273 vaccine 06/18/2021 Recorded 2023-02-26: TPV50 SARS-CoV-2 (COVID-19) mRNA-1273 vaccine 10/30/2020 Recorded SARS-CoV-2 (COVID-19) mRNA-1273 vaccine 10/02/2020 Recorded Normal [facility] Comment on above: Result Comment: Elec tronically Signed By: RAUDEL PUENTES, Joselo Barrera\Date and Time Signed: 04/07/23 14:01 EDT Reminderson 04-02-2023 Reminders - From: Cristal Gordon LPN To: N - Clinical; Sent: 04/02/2023 11:03:11 EDT Show up: 02/21/2033 07:00:00 EDT Subject: colonoscopy recall Due Date/Time: 03/24/2033 07:00:00 EDT Reminder/Recall Patient due for screening colonoscopy 03/24/2033. Normal [facility] Pathology Noteon 03-29-2023 Pathology Note [id number]:127 [facility] Outside Colonoscopyon 2022 Outside Colonoscopy [id number]#1.00CD:127 [facility] Pre-Certification Formon Pre-Certification Form [id number]#1.00CD:127 [facility] Consent for Procedure/Surger yon 03-05-2023 Consent for Procedure/Surgery [id number]#1.00CD:127 [facility] Facesheeton 03-04-2023 Facesheet [id number]#1.00CD:127 [facility] Ambulatory Visit Summaryon 0 03-03-2023 Ambulatory [...] lupus erythematosus Varicose veins of legs Normal [facility] RAD - CT Reporton 03-03-2023 RAD - CT Report [id number]#1.00CD:127 Normal [facility] Physician Referralon 023 Physician Referral [id number]#1.00CD:127 Normal [facility] CT ABD/PELV W CONon 02-13-20 [...] IDA SOTO Date: 2023-02-12 09:54 Normal [facility] QUANTIFERON TB GOLD PLUSon 0 02-07-2023 QuantiFERON Criteria Comment Normal [facility] Comment on above: Result Comment: Rehan [...] test. Performed By: #### Q NTTB #### [facility] [address] [place] [address] Dr. Jazmyn Saavedra QuantiFERON Incubation Incubation performed. Normal [facility] Comment on above: Performed By: #### Q NTTB #### [facility] [address] [place] [address] Dr. Jazmyn Saavedra QuantiFERON Mitogen Value 6.87 IU/mL Normal [facility] Comment on above: Performed By: #### Q NTTB #### [facility] [address] [place] [address] Dr. Jazmyn Saavedra QuantiFERON Nil Value 0.00 IU/mL Normal [facility] Comment on above: Performed By: #### Q NTTB #### [facility] [address] [place] [address] Dr. Jazmyn Saavedra QuantiFERON TB1 Ag Value 0.00 IU/mL Normal [facility] Comment on above: Performed By: #### Q NTTB #### [facility] [address] [place] [address] Dr. Jazmyn Saavedra QuantiFERON TB2 Ag Value 0.00 IU/mL Normal [facility] Comment on above: Performed By: #### Q NTTB #### [facility] [address] [place] [address] Dr. Jazmyn Saavedra QuantiFERON-TB Gold Plus Negative Normal Negative [facility] Comment on above: Result Comment: No r esponse to M tuberculosis antigens detected. Infection with M tuberculosis is unlikely, but high risk individuals should be considered for additional testing (ATS/IDSA/CDC Clinical Practice Guidelines, 2017). The reference range is an Antigen minus Nil result of <0.35 IU/mL. Chemiluminescence immunoassay methodology Performed By: #### Q NTTB #### [facility] [address] [place] [address] Dr. Jazmyn Saavedra HEP B COREon 02-06-2023 Hep B Core Ab, Tot Negative Normal Negative [facility] Comment on above: Performed By: #### S EDR #### [facility] [address] [place] [address] Dr. Jazmyn Saavedra HEP B SURFACE ANTIGEN SCREEN on 02-06-2023 HBsAg Screen Negative Normal Negative [facility] Comment on above: Performed By: #### H BSANS #### [facility] [address] [address] [address] Jazmyn Saavedra CBC AUTO DIFFon 02-05-2023 BASO # 0.0 103/ul Normal 0.0-0.1 [facility] Comment on above: Performed By: #### C BC #### [facility] [address] [address] [address] Jazmyn Saavedra Basophils/100 WBC (Bld) 0.5 % Normal 0.2-2.0 [facility] Comment on above: Performed By: #### C BC #### [facility] [address] [place] [address] Dr. Jazmyn Saavedra EO # 0.0 103/ul Normal 0.0-0.7 [facility] Comment on above: Performed By: #### C BC #### [facility] [address] [place] [address] Dr. Jazmyn Saavedra Eosinophils/100 WBC (Bld) 0.8 % Critically low 0.9-7.0 [facility] Comment on above: Performed By: #### C BC #### [facility] [address] [place] [address] Dr. Jazmyn Saavedra Erythrocyte distribution width (RBC) [Ratio] 13.2 % Normal 11.0-15.0 [facility] Comment on above: Performed By: #### C BC #### [facility] [address] [place] [address] Dr. Jazmyn Saavedra Hematocrit (Bld) [Volume fraction] 41.1 % Normal 36.0-48.0 [facility] Comment on above: Performed By: #### C BC #### [facility] [address] [place] [address] Dr. Jazmyn Saavedra Hemoglobin (Bld) [Mass/Vol] 13.4 g/dL Normal 12.0-16.0 [facility] Comment on above: Performed By: #### C BC #### [facility] [address] [place] [address] Dr. Jazmyn Saavedra IG # 0.01 10e3/ul Normal 0.00-0.03 [facility] Comment on above: Performed By: #### C BC #### [facility] [address] [place] [address] Dr. Jazmyn Saavedra IG % 0.3 % Normal 0.0-0.5 [facility] Comment on above: Performed By: #### C BC #### [facility] [address] [place] [address] Dr. Jazmyn Saavedra LYMPH # 1.2 103/ul Normal 1.2-3.8 [facility] Comment on above: Performed By: #### C BC #### [facility] [address] [place] [address] Dr. Jazmyn Saavedra Lymphocytes/100 WBC (Bld) 31.9 % Normal 20.5-60.0 [facility] Comment on above: Performed By: #### C BC #### [facility] [address] [place] [address] Dr. Jazmyn Saavedra MANUAL DIFF REQ NO Normal [facility] Comment on above: Performed By: #### C BC #### [facility] [address] [place] [address] Dr. Jazmyn Saavedra MCH (RBC) [Entitic mass] 30.6 pg Normal 26.7-34.0 [facility] Comment on above: Performed By: #### C BC #### [facility] [address] [place] [address] Dr. Jazmyn Saavedra MCHC (RBC) [Mass/Vol] 32.6 g/dL Normal 29.9-35.2 [facility] Comment on above: Performed By: #### C BC #### [facility] [address] [place] [address] Dr. Jazmyn Saavedra MCV (RBC) [Entitic vol] 93.8 fL Normal 81.0-99.0 [facility] Comment on above: Performed By: #### C BC #### [facility] [address] [place] [address] Dr. Jazmyn Saavedra MONO # 0.5 103/ul Normal 0.3-0.8 [facility] Comment on above: Performed By: #### C BC #### [facility] [address] [place] [address] Dr. Jazmyn Saavedra Monocytes/100 WBC (Bld) 14.1 % Critically high 1.7-12.0 [facility] Comment on above: Performed By: #### C BC #### [facility] [address] [address] [address] Jazmyn Saavedra NEUT # 1.9 103/ul Normal 1.4-6.5 [facility] Comment on above: Performed By: #### C BC #### [facility] [address] [place] [address] Dr. Jazmyn Saavedra Neutrophils/100 WBC (Bld) 52.4 % Normal 43.0-75.0 [facility] Comment on above: Performed By: #### C BC #### [facility] [address] [place] [address] Dr. Jazmyn Saavedar Platelet mean volume (Bld) [Entitic vol] 9.4 fL Critically low 9.5-13.5 [facility] Comment on above: Performed By: #### C BC #### [facility] [address] [place] [address] Dr. Jazmyn Saavedra PLT 342 103/ul Normal 150-450 [facility] Comment on above: Performed By: #### C BC #### [facility] [address] [place] [address] Dr. Jazmyn Saavedra RBC 4.38 106/ul Normal 4.20-5.40 [facility] Comment on above: Performed By: #### C BC #### [facility] [address] [place] [address] Dr. Jazmyn Saavedra WBC 3.7 103/ul Critically low 4.0-11.0 [facility] Comment on above: Performed By: #### C BC #### [facility] [address] [place] [address] Dr. Jazmyn Saavedra FREE THYROXINE INDEX T7on FTI 3.20 Normal 1.30-4.50 [facility] Comment on above: Performed By: #### S EDR #### [facility] [address] [address] [address] Jazmyn Saavedra T3U 36.0 % Normal 30.0-39.0 [facility] Comment on above: Performed By: #### S EDR #### [facility] [address] [address] [address] Jazmyn Saavedra T4 [Mass/Vol] 8.90 ug/dL Normal 4.80-13.90 [facility] Comment on above: Performed By: #### S EDR #### [facility] [address] [place] [address] Dr. Jazmyn Saavedra GLYCOHEMOGLOBIN A1Con 2022 ADA RECOMMENDATION SEE BELOW Normal [facility] Comment on above: Result Comment: ADA RECOMMENDED LIMIT 4.0 - 6.0 ADA THERAPEUTIC TARGET < 7.0 ACTION SUGGESTED > 7.0 Performed By: #### S EDR #### [facility] [address] [place] [address] Dr. Jazmyn Saavedra Glucose [Mass/Vol] 123 mg/dL Normal [facility] Comment on above: Performed By: #### S EDR #### [facility] [address] [place] [address] Dr. Jazmyn Saavedra HbA1c (Bld) [Mass fraction] 5.9 % Normal 4.5-6.2 [facility] Comment on above: Performed By: #### S EDR #### [facility] [address] [place] [address] Dr. Jazmyn Saavedra LIPID PROFILEon 02-05-2023 CHOL-HDL RATIO NORM SEE BELOW Normal [facility] Comment on above: Result Comment: 3.3 - 4.4 LOW RISK 4.4 - 7.1 AVERAGE RISK 7.1 - 11.0 MODERATE RISK >11.0 HIGH RISK Performed By: #### S EDR #### [facility] [address] [place] [address] Dr. Jazmyn Saavedra Cholesterol [Mass/Vol] 256 mg/dL Critically high <=200 [facility] Comment on above: Performed By: #### S EDR #### [facility] [address] [address] [address] Jazmyn Saavedra Cholesterol in HDL [Mass/Vol] 108 mg/dL Critically high 40-60 [facility] Comment on above: Performed By: #### S EDR #### [facility] [address] [address] [address] Jazmyn Saavedra Cholesterol in LDL [Mass/Vol] 139.4 mg/dL Normal [facility] Comment on above: Performed By: #### S EDR #### [facility] [address] [address] [address] Jazmyn Saavedra Cholesterol.total/ Cholesterol in HDL [Mass ratio] 2.4 {ratio} Normal [facility] Comment on above: Performed By: #### S EDR #### [facility] [address] [address] [address] Jazmyn Saavedra HDL NORMAL > or = 60 mg/dl - LO W CARDIOVASCULAR RISK <40 mg/dl - HIGH CARDIOVASCULAR RISK Normal [facility] Comment on above: Performed By: #### S EDR #### [facility] [address] [address] [address] Jazmyn Saavedra LDL CALC NORMAL SEE BELOW Normal [facility] Comment on above: Result Comment: <100 mg/dl OPTIMAL 100 - 129 mg/dl NEAR OR ABOVE OPTIMAL 130 - 159 mg/dl BORDERLINE HIGH 160 - 189 mg/dl HIGH >190 mg/dl VERY HIGH Performed By: #### S EDR #### [facility] [address] [address] [address] Jazmyn Saavedra Triglyceride [Mass/Vol] 43 mg/dL Normal <=150 [facility] Comment on above: Performed By: #### S EDR #### [facility] [address] [address] [address] Jazmyn Saavedra VLDL CALC 8.6 mg/dL Normal [facility] Comment on above: Performed By: #### S EDR #### [facility] [address] [address] [address] Jazmyn Saavedra PROF 14(COMP METB)on 023 Albumin [Mass/Vol] 4.0 g/dL Normal 3.4-5.0 [facility] Comment on above: Performed By: #### T 7, CMP, LIPID, TSH #### [facility] [address] [place] [address] Dr[address] Jazmyn Saavedra Albumin/Globulin [Mass ratio] 0.9 {ratio} Normal [facility] Comment on above: Performed By: #### T 7, CMP, LIPID, TSH #### [facility] [address] [address] [address] Jazmyn Saavedra ALP [Catalytic activity/Vol] 57 U/L Normal 46-116 [facility] Comment on above: Performed By: #### T 7, CMP, LIPID, TSH #### [facility] [address] [address] [address] Jazmyn Saavedra ALT [Catalytic activity/Vol] 23 U/L Normal 14-59 [facility] Comment on above: Performed By: #### T 7, CMP, LIPID, TSH #### [facility] [address] [place] [address] Dr. Jazmyn Saavedra Anion gap [Moles/Vol] 13.8 mmol/L Normal [facility] Comment on above: Performed By: #### T 7, CMP, LIPID, TSH #### [facility] [address] [place] [address] Dr. Jazmyn Saavedra AST [Catalytic activity/Vol] 23 U/L Normal 15-37 [facility] Comment on above: Performed By: #### T 7, CMP, LIPID, TSH #### [facility] [address] [place] [address] Dr. Jazmyn Saavedra Bilirubin [Mass/Vol] 0.6 mg/dL Normal 0.2-1.0 [facility] Comment on above: Performed By: #### T 7, CMP, LIPID, TSH #### [facility] [address] [place] [address] Dr. Jazmyn Saavedra Calcium [Mass/Vol] 9.6 mg/dL Normal 8.5-10.1 [facility] Comment on above: Performed By: #### T 7, CMP, LIPID, TSH #### [facility] [address] [place] [address] Dr. Jazmyn Saavedra Chloride [Moles/Vol] 100 mmol/L Normal 98-107 [facility] Comment on above: Performed By: #### T 7, CMP, LIPID, TSH #### [facility] [address] [address] [address] Jazmyn Saavedra CO2 [Moles/Vol] 29.9 mmol/L Normal 21.0-32.0 [facility] Comment on above: Performed By: #### T 7, CMP, LIPID, TSH #### [facility] [address] [address] [address] Jazmyn Saavedra Creatinine [Mass/Vol] 0.89 mg/dL Normal 0.55-1.02 [facility] Comment on above: Performed By: #### T 7, CMP, LIPID, TSH #### [facility] [address] [address] [address] Jazmyn Saavedra EGFR-AF ZAMBIAN >60 Normal >=60 [facility] Comment on above: Performed By: #### T 7, CMP, LIPID, TSH #### [facility] [address] [address] [address] Jazmyn Saavedra EGFR-NON AF ZAMBIAN >60 Normal >=60 [facility] Comment on above: Performed By: #### T 7, CMP, LIPID, TSH #### [facility] [address] [address] [address] Jazmyn Saavedra Globulin (S) [Mass/Vol] 4.4 g/dL Normal [facility] Comment on above: Performed By: #### T 7, CMP, LIPID, TSH #### [facility] [address] [address] [address] Jazmyn Saavedra Glucose [Mass/Vol] 89 mg/dL Normal 74-106 [facility] Comment on above: Performed By: #### T 7, CMP, LIPID, TSH #### [facility] [address] [address] [address] Jazmyn Saavedra Potassium [Moles/Vol] 3.7 mmol/L Normal 3.5-5.1 [facility] Comment on above: Performed By: #### T 7, CMP, LIPID, TSH #### [facility] [address] [place] [address] Dr. Jazmyn Saavedra Protein [Mass/Vol] 8.4 g/dL Critically high 6.4-8.2 [facility] Comment on above: Performed By: #### T 7, CMP, LIPID, TSH #### [facility] [address] [place] [address] Dr. Jazmyn Saavedra Sodium [Moles/Vol] 140 mmol/L Normal 136-145 [facility] Comment on above: Performed By: #### T 7, CMP, LIPID, TSH #### [facility] [address] [place] [address] Dr. Jazmyn Saavedra Urea nitrogen [Mass/Vol] 17.0 mg/dL Normal 7.0-18.0 [facility] Comment on above: Performed By: #### T 7, CMP, LIPID, TSH #### [facility] [address] [place] [address] Dr. Jazmyn Saavedra Urea nitrogen/Creatinin e [Mass ratio] 19.1 mg/mg [facility] Comment on above: Performed By: #### T 7, CMP, LIPID, TSH #### [facility] [address] [place] [address] Dr. Jazmyn Saavedra TSHon 02-05-2023 TSH 0.984 uIU/mL Normal 0.358-3.740 [facility] Comment on above: Performed By: #### S EDR #### [facility] [address] [place] [address] Dr. Jazmyn Saavedra PAP ACOG PANEL 2: 30 to 65on 10-07-2022 . . Normal [facility] Comment on above: Result Comment: Perf ormed at: [facility] Performed By: #### S EDR #### [facility] [address] [place] [address] Dr. Jazmyn Saavedra Age Gdln ACOG Testing 30-65 [facility] Comment on above: Performed By: #### S EDR #### [facility] [address] [place] [address] Dr. Jazmyn Saavedra DIAGNOSIS: Comment Normal [facility] Comment on above: Result Comment: NEGA TIVE FOR INTRAEPITHELIAL LESION OR MALIGNANCY. Performed at: [facility] Performed By: #### S EDR #### [facility] [address] [place] [address] Dr. Jazmyn Saavedra HPV Aptima Negative Normal Negative [facility] Comment on above: Result Comment: This nucleic acid amplification test detects fourteen high-risk HPV types (16,18,31,33,35,39,45,51,52,56,58,59,66,68) without differentiation. Performed at: =G Performed By: #### S EDR #### [facility] [address] [address] [address] Jazmyn Saavedra HPV Genotype Reflex Comment Normal [facility] Comment on above: Result Comment: Crit eria not met, HPV Genotype not performed. Performed at: [facility] Performed By: #### S EDR #### [facility] [address] [place] [address] Dr. Jazmyn Saavedra Methodology: Comment Normal [facility] Comment on above: Result Comment: This liquid based ThinPrep(R) pap test was screened with the use of an image guided system. Performed at: [facility] Performed By: #### S EDR #### [facility] [address] [place] [address] Dr. Jazmyn Saavedra Note: Comment Normal [facility] Comment on above: Result Comment: The [...] WB Performed By: #### S EDR #### [facility] [address] [address] [address] Jazmyn Saavedra Performed by: Comment Normal [facility] Comment on above: Result Comment: Daryl Calhoun, Slicing Machine Operator/Tender (ASCP) Performed at: [facility] Performed By: #### S EDR #### [facility] [address] [place] [address] Dr. Jazmyn Saavedra Specimen adequacy: Comment Normal [facility] Comment on above: Result Comment: Sati sfactory for evaluation. Endocervical component may not be distinguished in cases of atrophy. Performed at: [facility] Performed By: #### S EDR #### [facility] [address] [place] [address] Dr. Jazmyn Saavedra XR DEXA BONE DENSITYon [...] GILBERT GEORGE Date: 2022-08-28 08:47 Normal [facility] CBC AUTO DIFFon 08-25-2022 BASO # 0.0 103/ul Normal 0.0-0.1 [facility] Comment on above: Performed By: #### S EDR #### [facility] [address] [place] [address] Dr. Jazmyn Saavedra Basophils/100 WBC (Bld) 0.5 % Normal 0.2-2.0 [facility] Comment on above: Performed By: #### S EDR #### [facility] [address] [address] [address] Jazmyn Saavedra EO # 0.1 103/ul Normal 0.0-0.7 [facility] Comment on above: Performed By: #### S EDR #### [facility] [address] [address] [address] Jazmyn Saavedra Eosinophils/100 WBC (Bld) 1.2 % Normal 0.9-7.0 [facility] Comment on above: Performed By: #### S EDR #### [facility] [address] [place] [address] Dr. Jazmyn Saavedra Erythrocyte distribution width (RBC) [Ratio] 13.2 % Normal 11.0-15.0 [facility] Comment on above: Performed By: #### S EDR #### [facility] [address] [place] [address] Dr. Jazmyn Saavedra Hematocrit (Bld) [Volume fraction] 38.4 % Normal 36.0-48.0 [facility] Comment on above: Performed By: #### S EDR #### [facility] [address] [place] [address] Dr. Jazmyn Saavedra Hemoglobin (Bld) [Mass/Vol] 12.6 g/dL Normal 12.0-16.0 [facility] Comment on above: Performed By: #### S EDR #### [facility] [address] [place] [address] Dr. Jazmyn Saavedra IG # 0.01 10e3/ul Normal 0.00-0.03 [facility] Comment on above: Performed By: #### S EDR #### [facility] [address] [place] [address] Dr. Jazmyn Saavedra IG % 0.2 % Normal 0.0-0.5 [facility] Comment on above: Performed By: #### S EDR #### [facility] [address] [place] [address] Dr. Jazmyn Saavedra LYMPH # 1.7 103/ul Normal 1.2-3.8 [facility] Comment on above: Performed By: #### S EDR #### [facility] [address] [place] [address] Dr. Jazmyn Saavedra Lymphocytes/100 WBC (Bld) 40.8 % Normal 20.5-60.0 [facility] Comment on above: Performed By: #### S EDR #### [facility] [address] [place] [address] Dr. Jazmyn Saavedra MANUAL DIFF REQ NO Normal [facility] Comment on above: Performed By: #### S EDR #### [facility] [address] [address] [address] Jazmyn Saavedra MCH (RBC) [Entitic mass] 31.0 pg Normal 26.7-34.0 [facility] Comment on above: Performed By: #### S EDR #### [facility] [address] [place] [address] Dr. Jazmyn Saavedra MCHC (RBC) [Mass/Vol] 32.8 g/dL Normal 29.9-35.2 [facility] Comment on above: Performed By: #### S EDR #### [facility] [address] [place] [address] Dr. Jazmyn Saavedra MCV (RBC) [Entitic vol] 94.3 fL Normal 81.0-99.0 [facility] Comment on above: Performed By: #### S EDR #### [facility] [address] [place] [address] Dr. Jazmyn Saavedra MONO # 0.5 103/ul Normal 0.3-0.8 [facility] Comment on above: Performed By: #### S EDR #### [facility] [address] [place] [address] Dr. Jazmyn Saavedra Monocytes/100 WBC (Bld) 11.9 % Normal 1.7-12.0 [facility] Comment on above: Performed By: #### S EDR #### [facility] [address] [place] [address] Dr. Jazmyn Saavedra NEUT # 1.9 103/ul Normal 1.4-6.5 [facility] Comment on above: Performed By: #### S EDR #### [facility] [address] [place] [address] Dr. Jazmyn Saavedra Neutrophils/100 WBC (Bld) 45.4 % Normal 43.0-75.0 [facility] Comment on above: Performed By: #### S EDR #### [facility] [address] [place] [address] Dr. Jazmyn Saavedra Platelet mean volume (Bld) [Entitic vol] 9.3 fL Critically low 9.5-13.5 [facility] Comment on above: Performed By: #### S EDR #### [facility] [address] [address] [address] Jazmyn Saavedra PLT 309 103/ul Normal 150-450 [facility] Comment on above: Performed By: #### S EDR #### [facility] [address] [address] [address] Jazmyn Saavedra RBC 4.07 106/ul Critically low 4.20-5.40 [facility] Comment on above: Performed By: #### S EDR #### [facility] [address] [address] [address] Jazmyn Saavedra WBC 4.2 103/ul Normal 4.0-11.0 [facility] Comment on above: Performed By: #### S EDR #### [facility] [address] [address] [address] Jazmyn Saavedra CRPon 08-25-2022 CRP [Mass/Vol] mg/L Normal <=1.0 [facility] Comment on above: Performed By: #### C RP, CMP, LIPID #### [facility] [address] [place] [address] Dr. Jazmyn Saavedra LIPID PROFILEon 08-25-2022 CHOL-HDL RATIO NORM SEE BELOW Normal [facility] Comment on above: Result Comment: 3.3 - 4.4 LOW RISK 4.4 - 7.1 AVERAGE RISK 7.1 - 11.0 MODERATE RISK >11.0 HIGH RISK Performed By: #### C RP, CMP, LIPID #### [facility] [address] [address] [address] Jazmyn Saavedra Cholesterol [Mass/Vol] 251 mg/dL Critically high <=200 [facility] Comment on above: Performed By: #### C RP, CMP, LIPID #### [facility] [address] [address] [address] Jazmyn Saavedra Cholesterol in HDL [Mass/Vol] 102 mg/dL Critically high 40-60 [facility] Comment on above: Performed By: #### C RP, CMP, LIPID #### [facility] [address] [address] [address] Jazmyn Saavedra Cholesterol in LDL [Mass/Vol] 135.0 mg/dL Normal [facility] Comment on above: Performed By: #### C RP, CMP, LIPID #### [facility] [address] [address] [address] Jazmyn Saavedra Cholesterol.total/ Cholesterol in HDL [Mass ratio] 2.5 {ratio} Normal [facility] Comment on above: Performed By: #### C RP, CMP, LIPID #### [facility] [address] [address] [address] Jazmyn Saavedra HDL NORMAL > or = 60 mg/dl - LO W CARDIOVASCULAR RISK <40 mg/dl - HIGH CARDIOVASCULAR RISK Normal [facility] Comment on above: Performed By: #### C RP, CMP, LIPID #### [facility] [address] [address] [address] Jazmyn Saavedra LDL CALC NORMAL SEE BELOW Normal [facility] Comment on above: Result Comment: <100 mg/dl OPTIMAL 100 - 129 mg/dl NEAR OR ABOVE OPTIMAL 130 - 159 mg/dl BORDERLINE HIGH 160 - 189 mg/dl HIGH >190 mg/dl VERY HIGH Performed By: #### C RP, CMP, LIPID #### [facility] [address] [address] [address] Jazmyn Saavedra Triglyceride [Mass/Vol] 70 mg/dL Normal <=150 [facility] Comment on above: Performed By: #### C RP, CMP, LIPID #### [facility] [address] [address] [address] Jazmyn Saavedra VLDL CALC 14.0 mg/dL Normal [facility] Comment on above: Performed By: #### C RP, CMP, LIPID #### [facility] [address] [address] [address] Jazmyn Saavedra PROF 14(COMP METB)on 022 Albumin [Mass/Vol] 3.9 g/dL Normal 3.4-5.0 [facility] Comment on above: Performed By: #### C RP, CMP, LIPID #### [facility] [address] [address] [address] Jazmyn Saavedra Albumin/Globulin [Mass ratio] 1.0 {ratio} Normal [facility] Comment on above: Performed By: #### C RP, CMP, LIPID #### [facility] [address] [address] [address] Jazmyn Saavedra ALP [Catalytic activity/Vol] 49 U/L Normal 46-116 [facility] Comment on above: Performed By: #### C RP, CMP, LIPID #### [facility] [address] [address] [address] Jazmyn Saavedra ALT [Catalytic activity/Vol] 17 U/L Normal 14-59 [facility] Comment on above: Performed By: #### C RP, CMP, LIPID #### [facility] [address] [place] [address] Dr. Jazmyn Saavedra Anion gap [Moles/Vol] 10.1 mmol/L Normal [facility] Comment on above: Performed By: #### C RP, CMP, LIPID #### [facility] [address] [place] [address] Dr. Jazmyn Saavedra AST [Catalytic activity/Vol] 19 U/L Normal 15-37 [facility] Comment on above: Performed By: #### C RP, CMP, LIPID #### [facility] [address] [place] [address] Dr. Jazmyn Saavedra Bilirubin [Mass/Vol] 0.5 mg/dL Normal 0.2-1.0 [facility] Comment on above: Performed By: #### C RP, CMP, LIPID #### [facility] [address] [place] [address] Dr. Jazmyn Saavedra Calcium [Mass/Vol] 9.3 mg/dL Normal 8.5-10.1 [facility] Comment on above: Performed By: #### C RP, CMP, LIPID #### [facility] [address] [address] [address] Jazmyn Saavedra Chloride [Moles/Vol] 103 mmol/L Normal 98-107 [facility] Comment on above: Performed By: #### C RP, CMP, LIPID #### [facility] [address] [address] [address] Jazmyn Saavedra CO2 [Moles/Vol] 30.1 mmol/L Normal 21.0-32.0 [facility] Comment on above: Performed By: #### C RP, CMP, LIPID #### [facility] [address] [address] [address] Jazmyn Saavedra Creatinine [Mass/Vol] 0.80 mg/dL Normal 0.55-1.02 [facility] Comment on above: Performed By: #### C RP, CMP, LIPID #### [facility] [address] [address] [address] Jazmyn Saavedra EGFR-AF ZAMBIAN >60 Normal >=60 [facility] Comment on above: Performed By: #### C RP, CMP, LIPID #### [facility] [address] [address] [address] Jazmyn Saavedra EGFR-NON AF ZAMBIAN >60 Normal >=60 [facility] Comment on above: Performed By: #### C RP, CMP, LIPID #### [facility] [address] [address] [address] Jazmyn Saavedra Globulin (S) [Mass/Vol] 4.1 g/dL Normal [facility] Comment on above: Performed By: #### C RP, CMP, LIPID #### [facility] [address] [address] [address] Jazmyn Saavedra Glucose [Mass/Vol] 92 mg/dL Normal 74-106 [facility] Comment on above: Performed By: #### C RP, CMP, LIPID #### [facility] [address] [address] [address] Jazmyn Saavedra Potassium [Moles/Vol] 4.2 mmol/L Normal 3.5-5.1 [facility] Comment on above: Performed By: #### C RP, CMP, LIPID #### [facility] [address] [address] [address] Jazmyn Saavedra Protein [Mass/Vol] 8.0 g/dL Normal 6.4-8.2 [facility] Comment on above: Performed By: #### C RP, CMP, LIPID #### [facility] [address] [address] [address] Jazmyn Saavedra Sodium [Moles/Vol] 139 mmol/L Normal 136-145 [facility] Comment on above: Performed By: #### C RP, CMP, LIPID #### [facility] [address] [address] [address] Jazmyn Saavedra Urea nitrogen [Mass/Vol] 20.0 mg/dL Critically high 7.0-18.0 [facility] Comment on above: Performed By: #### C RP, CMP, LIPID #### [facility] [address] [address] [address] Jazmyn Saavedra Urea nitrogen/Creatinin e [Mass ratio] 25.0 mg/mg Normal [facility] Comment on above: Performed By: #### C RP, CMP, LIPID #### [facility] [address] [place] [address] Dr. Jazmyn Saavedra SED RATE [facility] 2021 SED RATE 47 mm/hr Critically high <=30 [facility] Comment on above: Performed By: #### S EDR #### [facility] [address] [place] [address] Dr. Jazmyn Saavedra ASYMPTOMATIC COVID-19 ANTIGE Non 05-18-2022 EUA Statement SEE BELOW Normal [facility] Comment on above: Result Comment: [...] sooner. Performed By: #### S EDR #### [facility] [address] [address] [address] Jazmyn Saavedra SARS-CoV-2 (COVID-19) RNA NILES+probe Ql (Unsp spec) Positive Critically abnormal NEGATIVE [facility] Comment on above: Result Comment: SARS -CoV-2 antigen present; does not rule out coinfection with other pathogens. Performed By: #### S EDR #### [facility] [address] [place] [address] Dr. Jazmyn Saavedra Covid-19 PCR ([facility])on SARS-CoV-2 (COVID-19) RNA NILES+probe Ql (Unsp spec) Detected Critically abnormal NOT DETECTED [facility] Comment on above: Result Comment: This test is not yet approved or cleared by the [place] FDA. When there are no FDA-approved or cleared tests available, and other criteria are met, FDA can make tests available under an emergency access mechanism called an Emergency Use Authorization (EUA). The EUA for this test is supported by the [place] of Health and Human Service's declaration that [...] used). Performed By: #### C VDTB #### [facility] [address] [place] [address] Dr. Jazmyn BARLOW MULTI-CANCER PANELon 02-12-2021 RESULT Results to be mailed directly to physician's office by reference lab. Normal [facility] Comment on above: Result Comment: Test performed by [employer] [address] [place] [address], [place] [phone] No result expected. For billing and tracking purposes only. Performed By: #### 3 [id number] #### [facility] [address] [facility] [address], [facility] Vital Signs Date Time Vital Sign Value Performing Clinician Facility 11-23-2024 09:55-0500 Body mass index (BMI) [Ratio] 25.63 kg/m2 Easton Jassi DO Work Phone: [facility] 11-23-2024 09:55-0500 Body weight 69.85 kg Easton Jassi DO Work Phone: [facility] 11-23-2024 09:55-0500 Diastolic blood pressure 72 mm[Hg] Easton Jassi DO Work Phone: [facility] 11-23-2024 09:55-0500 Systolic blood pressure 124 mm[Hg] Easton Jassi DO Work Phone: [facility] 11-16-2023 11:39-0500 Body mass index (BMI) [Ratio] 24.96 kg/m2 Easton Jassi DO Work Phone: [facility] 11-16-2023 11:39-0500 Body weight 68.04 kg Easton Jassi DO Work Phone: [facility] 11-16-2023 11:39-0500 Diastolic blood pressure 72 mm[Hg] Easton Jassi DO Work Phone: [facility] 11-16-2023 11:39-0500 Systolic blood pressure 118 mm[Hg] Easton Jassi DO Work Phone: [facility] 03-03-2023 14:35-0400 Blood Pressure Location Joselo STARKS [facility] 03-03-2023 14:35-0400 Diastolic blood pressure 68 mm[Hg] Joselo STARKS [facility] 03-03-2023 14:35-0400 Heart rate 68 /min Joselo STARKS [facility] 03-03-2023 14:35-0400 Respiratory rate 16 /min Joselo STARKS [facility] 03-03-2023 14:35-0400 Systolic blood pressure 114 mm[Hg] Joselo STARKS [facility] [place] Encounters Encounter Date Encounter Type Care Provider [...] for osteoporosis Start: 10-19-2024 End: 10-19-2024 [facility] Start: 05-22-2024 End: 05-22-2024 ambulatory [facility] Start: 05-04-2024 End: 05-04-2024 [facility] Start: 03-08-2024 End: 03-08-2024 ambulatory [facility] Start: 12-30-2023 End: 12-30-2023 [facility]ulatory [facility] Start: 11-16-2023 End: 11-16-2023 Postop follow up visit related to original px Easton Jasis DO Work Phone: [facility] Comment on above: Encounter for repeat Pap smear due to previous insuff cervical cells Start: 04-07-2023 End: 04-08-2023 ambulatory [facility] R [facility]ILL [facility] Start: 04-07-2023 End: 04-07-2023 Patient encounter procedure Joselo R NILL General Surgery Nill/Said [facility] Start: 03-24-2023 End: 03-25-2023 ambulatory Joselo R NILL Facility:CD:[id number] Start: 03-03-2023 End: 03-04-2023 ambulatory Mariza Hoy [facility] Start: 03-03-2023 End: 03-03-2023 Patient encounter procedure Joselo R NILL General Surgery [facility] Start: 02-18-2023 ambulatory Mariza Hoy Facility:[facility] Start: 02-12-2023 Encounter for genera l adult medical examination without abnormal findings MARIZA HOY [facility] Start: 02-12-2023 End: 02-13-2023 ambulatory MARIZA [...] Clinician Start: 11-23-2024 IGP,APTIMA HPV,AGE GDLN Eastondelia [employer] Work Phone: Start: 11-16-2023 Microscopic observation [Identifier] in Cervix by Cyto stain Eastondelia [employer] Phone: Start: 11-16-2023 Cytp cerv/vag auto thin layer prep mnl screen [employer] Phone: Start: 03-24-2023 Colonoscopy Eastondelia [employer] Work Phone: Start: 03-24-2023 Colonoscopy Joselo STARKS Start: 03-24-2023 Esophagogastroduodenoscopy Joselo STARKS [employer] Start: 09-23-2022 Microscopic observation [Identifier] in Cervix by Cyto stain Easton Qubell Work Phone: Start: 07-24-2015 Colonoscopy Joselo STARKS Under[facility] Start: 02-01-2007 Colonoscopy Joselo STARKS Bilateral mastectomy Joselo STARKS Biopsy of breast Joselo Galeas section Joselo Galeas Excision of cervical intervertebral disc Joselo STARKS Undertone Excision of lymph node Tony flori STARKS Comment on above: left inguinal Excision of salivary gland M marco STARKS Comment on above: x2 Granuloma (morpholog ic abnormality) Joselo STARKS Under[employer] Comment on above: x 2 History of radiofreq uency ablation operation for arrhythmia Joselo STARKS Total abdominal hyst erectomy with bilateral salpingo-oophorectomy Joselo STARKS Undertone Plan of Treatment Date Care Activity Detail Author Start: 03-24-2033 Screening for malignant neoplasm of colon [facility] Start: 11-16-2028 Screening for malignant neoplasm of cervix [facility] Start: 09-23-2027 Screening for malignant neoplasm of cervix [facility] Start: 11-28-2025 End: 11-28-2025 Patient encounter procedure 11/28/2025 1:00 PM EST Office Visit [facility] [address] [place] [phone] Easton Keene, DO [address] [place] [address] [facility] Start: 01-27-2025 Screening for malignant neoplasm of colon FIT-DNA [facility] Start: 11-20-2024 End: 11-20-2024 Patient encounter procedure 11/20/2024 4:00 PM EST Office Visit [facility] [address] [place] [phone] Easton Keene, DO [address] [place] [address] [facility] Start: 06-04-2023 Influenza vaccination Influenza Vacc ine (#1) [facility] Start: 2008 Screening for malignant neoplasm of breast Mammogram [facility] Start: 1968 Screening for malignant neoplasm of colon [facility] THIN PREP TIS PAP AN D HR HPV DNA THIN PREP TIS PAP AND HR HPV DNA Pathology and Cytology Routine Well woman exam with routine gynecological exam Ordered: 11/23/2024 [facility] Work Phone: Comment on above: Ordered: 11/23/2024 Immunizations Immunization Date Immunization Notes Care Provider [facility] 08-07-2022 SARS-CoV-2 (COVID-19 ) mRNA-1273 vaccine Joselo STARKS [facility] [place] 01-01-2022 SARS-CoV-2 mRNA (pxqpolvwxob-bosu-ofuzx se) vaccine Joselo SCANLONL [facility] [place] 06-18-2021 SARS-CoV-2 (COVID-19 ) mRNA-1273 vaccine Joselo SCANLONL [facility] [place] Comment on above: Result Comment: 2022: [id number] 10-30-2020 SARS-CoV-2 (COVID-19 ) mRNA-1273 vaccine Joselo STARKS [facility] [place] 10-02-2020 SARS-CoV-2 (COVID-19 ) mRNA-1273 vaccine Joselo STARKS [facility] [place] Payers Date Payer Category Payer Blue [place] [employer] BCBS [id number] 2022 Unknown BCBS BCBS [id number] 2022-Present [phone] [id number] [place], [place] [id number] 2022 Unknown [id number] 2019 Unknown [id number] 1968 Unknown [id number] 2.16.840.1.542485.3.579.2. 593 1968 Unknown [id number] 2.16.840.1.516985.3.579.2. 593 1968 Unknown [id number] 2.16.840.1.291183.3.579.2. 593 1968 Unknown [id number] 2.16.840.1.240684.3.579.2. 593 1968 Unknown [id number] 2.16.840.1.348506.3.579.2. 593 1968 Unknown [id number] 2.16.840.1.464266.3.579.2. 593 1968 Unknown [id number] 2.16.840.1.475971.3.579.2. 593 1968 Unknown [id number] 2.16.840.1.109218.3.579.2. 593 1968 Unknown [id number] 2.16.840.1.186113.3.579.2. 593 1968 Unknown [id number] 2.16.840.1.333872.3.579.2. 727 1968 Unknown [id number] 2.16.840.1.333097.3.579.2. 727 1968 Unknown [id number] 2.16.840.1.779371.3.579.2. 727 1968 Unknown [id number] 2.16.840.1.736551.3.579.2. 1259 1959 Self-pay [id number] Unknown [id number] 2.16.840.1.558477.3.579.2. 593 Social History Date Type Detail Facility Start: 03-03-2023 End: 09-24-2023 Tobacco smoking status Never smoked tobacco (finding) [facility] [place] Tobacco smoking status Never [facility] [place] Start: 09-24-2023 End: 11-23-2024 Sex Assigned At Female [facility] Start: 10-28-2023 End: 11-23-2024 Alcohol intake [...] Gender identity Identifies as female gender (finding) [facility] Healthcare Functional Status Date Assessment Result Facility 03-03-2023 Functional Status N/A [facility] [place] Clinical Notes 02-04-2023 to 11-23-2024 Vibha Jordan, GLAZIER SUPERVISOR - 11/23/2024 9:30 AM ESTCoredelia Jassi, - [...] nursing note reviewed. Exam conducted with a radio interference trouble shooter present. Vitals: Estimated body mass index is [...] Easton Keene DO documented in this encounter [facility] 10-19-2024 Note Attestation signed by Tomas [...] of 10/28, patient says she did in [place] on 08/27 and will arrange to get [...] Seen by Dr Clinton and Dr Matamoros [facility] 05-22-2024 Note [place] [facility] Note Reason for cardiology [...] post ablation about 20 years ago at [facility]. History of pericarditis remotely. She has history of lupus/rheumatoid arthritis, hypothyroidism, and GERD. She presented to [facility] ED 02/05/2024 for palpitations and SOB. [...] did not advise anticoagulation due to low [id number] score of 1. Few weeks ago she [...] Disp: , Rfl: (more content not included)... [facility] 05-04-2024 Note Attestation signed by Tomas [...] Seen by Dr Clinton and Dr Matamoros [facility] 03-08-2024 Note [facility] Note Reason for cardiology consult: Ref from Dr. Mariza Wright for afib. Chief Complaint: Palpitation HPI: Teetee Hernandez is a 54 y.o. female with prior history of SVT status post ablation about 20 years ago at [facility]. History of pericarditis remotely. She has history of lupus/rheumatoid arthritis, hypothyroidism, and GERD. She presented to [facility] ED 02/05/2024 for palpitations and SOB. [...] did not advise anticoagulation due to low [id number] score of 1. Few weeks ago she [...] BMI 24.42 kg/m??? (more content not included)... [facility] 12-30-2023 Note Subjective Patient ID: Teetee [...] more symptom control; side effects including increased [facility] 11-16-2023 History of Present illness Narrative [...] Easton Keene DO documented in this encounter [facility] 03-03-2023 Note Chief Complaint consultation for [...] History of pericar (more content not included)... [facility] Comment on above: Result Comment: [...] by: IDA SOTO Date: 2023-02-04 18:18 [facility] 02-04-2023 Note PROCEDURE: XR HIP LT [...] by: IDA SOTO Date: 2023-02-04 18:17 [facility] 02-04-2023 Note PROCEDURE: XR FOOT R T MIN 3 VIEWS COMPARISON: None. HISTORY: Rheumatoid factor positive rheumatoid arthritis FINDINGS: BONES:No acute fracture or dislocation. Mild enthesopathic spurring of the calcaneus at the Achilles insertion. SOFT TISSUES:Negative. No visible soft tissue swelling. EFFUSION:None visible. OTHER: Negative. IMPRESSION: Mild calcaneal Achilles enthesopathy Electronically authenticated by: IDA SOTO Date: 2023-02-04 18:16 [facility] Evaluation + Plan note No data available for this section [facility] [place] Evaluation note Diagnosis Encounter for repeat Pap smear due to previous insuff cervical cells documented in this encounter [facility] Diagnosis Well woman exam with routine gynecological exam Routine gynecological examination Breast cancer screening by mammogram Encounter for screening for osteoporosis documented in this encounter [facility] Dis[facility] instructions No data available for this section [facility] [place] Progress note No data available for this section [facility] [place] Summary Purpose Family History No Family History Records FoundNo Family History Records FoundNo Family History Records FoundNo Family History Records FoundNo Family History Records Found Advance Directives No Advanced Directives Records FoundNo Advanced Directives Records FoundNo Advanced Directives Records FoundNo Advanced Directives Records FoundNo Advanced Directives Records Found Additional Source Comments INFORMATION SOURCE (unrecogn ized section and content) DATE CREATED AUTHOR 03/16/2021 [facility] DATE CREATED AUTHOR AUTHOR'S ORGANIZ ATION 02/15/2023 [facility] DATE CREATED AUTHOR AUTHOR'S ORGANIZ ATION 04/08/2023 [facility] DATE CREATED AUTHOR AUTHOR'S ORGANIZ ATION 10/22/2024 [facility] DATE CREATED AUTHOR AUTHOR'S ORGANIZ ATION 11/25/2024 [facility] dical Specialists EPIC Patient Care team informatio n (unrecognized section and content) Skiagrapher Relationship Specialty Start Date End Date Mariza Wright MD [address] [place] [address] PCP - General 09/27/23 Skiagrapher Relationship Specialty Start Date End Date Mariza Wright MD [address] [place] [address] PCP - General 09/27/23 Skiagrapher Relationship Specialty Start Date End Date Mariza Wright MD [address] [place] [address] PCP - General 09/27/23 Skiagrapher Relationship Specialty Start Date End Date Mariza Wright MD [address] [place] [address] PCP - General 09/27/23 Reason for Visit [...] THE PRIMARY CLINICAL RECORDS. [facility] [employer] [facility]. provides no warranty or guarantee of the accuracy or completeness of information in this document.
[2024-12-11 09:42] LABS: Total Protein Urine Random 8.3 mg/dL (<=11.9)
[2024-12-11 09:46] LABS: Total Protein 24 Hour Urine 195.1 mg/24hr (<=149.1); Total Volume 24 Hour Urine 2350 mL/24hr
== END 2024-12-11 08:14 | disposition home or self-care (01) ==
LOC: LAB 08:13
PROVIDERS: PCP Family Medicine; Visit Provider Family Medicine
DX: R10.9 Unspecified abdominal pain (principal)
CPT/HCPCS: 84156

== ENCOUNTER 2025-03-02 06:57 | Outpatient (OUT) | payer BC, SELFPAY ==
--- OUTSIDE RECORDS SUMMARY | 2024-06-27 18:42 | XMS_ITS ---
Author Organization 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
--- OUTSIDE RECORDS SUMMARY | 2024-12-07 12:17 | XMS_ITS ---
Author Organization [facility] in [place] Address [address] [place] [address] Care Team Providers Care Supervisor Rough End Name Role Phone Eder Wright Primary Care Provider [phone] Results Component Value Reference Range Notes Total Protein 24 Hour Urine Reviewed date:12/11/2024 02:06:33 PM Interpretation: Performing Lab: Notes/Report: [facility] , Total Protein Urine Random 8.3 <=11.9 mg/dL Total Volume 24 Hour Urine 2350 Total Protein 24 Hour Urine 195.1 <=149.1 mg/24 hr Performing Lab: see note ML - [facility] LB MYOGLOBIN Reviewed date:12/10/2024 10:11:52 AM Interpretation: Performing Lab: Notes/Report: [facility] , Myoglobin 39 9-82 ng/mL Performing Lab: see note ML - [facility] LB CPK Reviewed date:12/10/2024 10:11:52 AM Interpretation: Performing Lab: Notes/Report: [facility] , Creatine Kinase 127 26-192 U/L Performing Lab: see note ML - [facility] LB CBC AUTO DIFF Reviewed date:12/10/2024 10:11:52 AM Interpretation: Performing Lab: Notes/Report: [facility] , White Blood Count 4.6 4.0-11.0 10 3/uL Red Blood Count 4.14 4.20-5.40 10 6/uL Hemoglobin 12.6 12.0-16.0 g/dL Hematocrit 39.1 36.0-48.0 % Mean Corpuscular Volume 94.4 81.0-99.0 fL Mean Corpuscular Hemoglobin 30.4 26.7-34.0 pg Mean Corpuscular HGB Conc 32.2 29.9-35.2 g/dL Red Cell Distribution Width 13.0 11.0-15.0 % Platelet Count 325 150-450 10 3/uL Mean Platelet Volume 10.0 9.5-13.5 fL Neutrophils Percent Auto 41.3 43.0-75.0 % Lymphocytes Percent Auto 40.9 20.5-60.0 % Monocytes Percent Auto 16.0 1.7-12.0 % Eosinophils Percent Auto 0.9 0.9-7.0 % Basophils Percent Auto 0.7 0.2-2.0 % Immature Granulocytes Pct Auto 0.2 0.0-0.5 % Neutrophils Absolute Auto 1.9 1.4-6.5 10 3/uL Lymphocytes Absolute Auto 1.9 1.2-3.8 10 3/uL Monocytes Absolute Auto 0.7 0.3-0.8 10 3/uL Eosinophils Absolute Auto 0.0 0.0-0.7 10 3/uL Basophils Absolute Auto 0.0 0.0-0.1 10 3/uL Immature Granulocytes Abs Auto 0.01 0.00-0.03 10 3/uL Performing Lab: see note ML - [facility] LB MICROALBUMIN, RAND UR Reviewed date:12/10/2024 10:11:52 AM Interpretation: Performing Lab: Notes/Report: [facility] , Microalbumin Urine Random <1.3 <=30.0 mg/dL Performing Lab: see note ML - [facility] LB REASON FOR VISIT labs from nov Encounters Encounter Location Date Provider Diagnosis [facility] [address] [facility] [place] [address] 12/07/2024 Eder Wright Flank pain R10.9 Assessments Encounter Date Diagnosis (ICD Code) Assessment Notes Treatment Notes Treatment Clinical Notes Section Notes 12/07/2024 Flank pain (ICD-10 - R10.9) Plan Of Treatment Next Appt Details Provider Name:Eder Wright, 01:30:00 PM, [address] [facility], [place], [address], Progress Notes * Teetee SMALL MDOB:[birth year] (54 yo F)Acc No.[id number]:12/07/2024 Patient: Madhuri BRIGITTEVASQUEZ Teetee M :1970 A ge:54 Y S ex:Female Address:[address] [place] [address] , [place], [place], [facility] Subjective: * Chief Complaints: * L abs from nov * Medical History: * Surgical History: * Hospitalization/Major Diagno stic Procedure: * Medications: Objective: * Vitals: * Physical Examination: Assessment: * Assessment: 1. F lank pain - R10.9 (Primary) Plan: * Treatment: * Procedure Codes: * true * Date: Generated for Felipe london/Mehul/Shannonsmitting on: 0 03/02/2025 06:59 AM EDT
--- OUTSIDE RECORDS SUMMARY | 2025-03-02 06:59 | XMS_ITS | Clinical Summary ---
Author Organization [facility] Address [address] [place] [address] Care Team Providers Care Subassembly Assembler Name Role Phone Navi Wright MD Primary Care Provider [phone] Yessenia Kaplan MOBILE WEB APPLICATION DEVELOPER Unavailable [phone] Allergies Active Allergy Reactions Criticality Noted Date Comments Adhesive Other Low 09/21/2014 Other reaction(s): Rash, Other, redness/sores Adhesive Tape-Silicones 10/07/2021 Other reaction(s): Hives / Skin Rash Benzoyl Peroxide 02/01/2023 Other reaction(s): burning/red rash Sulfa (Sulfonamide Antibiotics) Other High 07/31/2014 Other reaction(s): Other, Other (see comments), Other: See Comments, rash/nausea, Unknown Flare up her lupus, red blotches Severe sunburn to skin; causes SLE flare Sulfamethoxazole-Trimethop rim 02/01/2023 Other reaction(s): Unknown Medications Medication Sig Dispensed Refills Start Date End Date Status levothyroxine (Synthroid, Levoxyl) 100 mcg tablet Take 1 microgram every day by oral route for 90 days. Active liothyronine (Cytomel) 5 mcg tablet Take 1 tablet every day by oral route for 90 days. Active pantoprazole (ProtoNix) 40 mg EC tablet in the evening. 02/05/2023 Active aspirin 81 mg EC tablet Take by mouth in the morning. Active cholecalciferol (Vitamin D-3) 25 MCG (1000 UT) capsule Take 1 capsule by mouth. Active calcium carbonate 600 mg calcium (1,500 mg) tablet Take by mouth in the morning. Active tofacitinib ER (Xeljanz XR) 11 mg tablet extended release 24 hr 11 mg in the morning. Do not crush, chew or split. Swallow whole. Active magnesium oxide 500 mg capsule Take 1 each by mouth in the morning. Active hydroxychloroquine (Plaquenil) 200 mg tabletIndications:Ot her systemic lupus erythematosus with other organ involvement (CMS/HCC) TAKE 1 AND 1/2 TABLETS BY MOUTH IN THE MORNING 90 tablet 5 06/14/2024 Active triamcinolone (Kenalog) 0.1 % oral pasteIndications:Rhe umatoid arthritis of other site with positive rheumatoid factor (CMS/HCC),Osteopenia of lumbar spine Use in the mouth or throat if needed for mucositis. 5 g 3 08/09/2024 Active methylPREDNISolone (Medrol) 4 mg tabletIndications:Rh eumatoid arthritis of other site with positive rheumatoid factor (CMS/HCC),Osteopenia of lumbar spine Take 1 tablet (4 mg) by mouth in the morning. TAKE 1/2 TABLET BY MOUTH EVERY DAY NEEDED 30 tablet 3 08/09/2024 Active tiZANidine (Zanaflex) 2 mg capsuleIndications:S ystemic lupus erythematosus, unspecified SLE type, unspecified organ involvement status (CMS/HCC),Other fatigue Take 1 capsule (2 mg) by mouth if needed at bedtime for muscle spasms. 90 capsule 2 10/19/2024 07/16/2025 Active Active Problems Problem Noted Date Diagnosed Date Osteoarthritis of both feet 10/19/2024 Other fatigue 10/19/2024 H/O cardiac radiofrequency ablation 05/22/2024 Other forms of systemic lupus erythematosus 10/2023 Abdominal pain, LLQ 03/08/2024 BMI 24.0-24.9, adult 03/08/2024 Change in bowel habits 03/08/2024 DDD (degenerative disc disease), cervical 2023 Diffuse connective tissue disease 03/08/2024 Epigastric abdominal pain 03/08/2024 GERD (gastroesophageal reflux disease) History of breast cancer 03/08/2024 History of pericarditis 03/08/2024 Hypothyroidism 03/08/2024 IBS (irritable bowel syndrome) 03/08/2024 Polycystic ovaries 03/08/2024 Raynauds syndrome 03/08/2024 Paroxysmal supraventricular tachycardia 03/08/20 24 Varicose veins of legs 03/08/2024 Palpitations 03/08/2024 Paroxysmal A-fib 03/08/2024 Other hyperlipidemia 07/09/2022 Osteopenia of lumbar spine 07/09/2022 Encounter for long-term (current) use of medicat ions 07/09/2022 Rheumatoid arthritis with positive rheumatoid fa ctor 07/09/2022 Cervical radiculopathy 06/10/2022 Muscle pain 06/10/2022 Neck pain 06/10/2022 Bilateral nonexudative age-related macular degen eration 05/06/2022 Menopausal symptom 04/12/2014 Primary malignant neoplasm of female breast 04/03 Overview (02/01/2023): HPI Mrs. Small is a pleasant 52 yo woman dx with LEFT breast IDC [id number] ER +4/VT+4 Her 2 non amplified (please note in earlier notes right IDC documented incorrectly. See pathology report) s/p bilateral mastectomy (right pt choice prophylactic) per Dr Draper. OncotypeDx score of 14-no systemic chemotherapy given. GENETIC TESTING, [facility] Multi-Cancer Panel: no pathogenic mutation identified. copied from previous visit ([facility]) Diagnosis: 04/10/2013 Left breast biopsy - Invasive ductal CA, grade 1. DCIS, cribriform type. ER/VT + (>90%), HER-2/julio cesar-negative (ratio 1.2), T: 1c, N: 0, M: x, Oncotype DX score: 14 Diagnosis (R,L): Oncotype DX score: 14 Treatment to date: 06/22/2013 Tamoxifen 20mg. PO daily started Cancer surgery 05/17/2013 Left breast mastectomy with SLN biopsy - Invasive ductal CA, high grade, 1.1cm. 0/8 nodes positive. ER/VT + (4+), HER-2/julio cesar-negative (ratio 1.0). Margins negative. 05/17/2013 Right breast mastectomy - No significant pathology. S/P BSO+ RELL on 08/20/14 CT chest 02/01/2018: No significant chronic interstitial changes or visible acute infiltrates. DEXA 08/24/2018: normal DEXA 08/26/2020: normal BCI results: High risk of recurrence/low likelihood of benefit from extended AI therapy Sjogren's syndrome 04/20/2013 Encounters Date Type Department Care Team Description 12/13/2024 3:40 PM EDT Office Visit [facility] [address] [place] [phone] Zander Donald MD Paroxysmal A-fib (CMS/HCC) (Primary Dx); Paroxysmal supraventricular tachycardia; H/O cardiac radiofrequency ablation; Other hyperlipidemia; History of breast cancer; Primary malignant neoplasm of female breast (CMS/HCC) from Last 3 Months Immunizations Name Administration Dates Next Due Influenza, Injectable, MDCK, preservative free 07/06/2024 Moderna SARS-CoV-2 Vaccination ,01/01/2022,06/18/2021,2020,10/02/2020 Novel [id number], preservative-free 08/05/2009 Pfizer SARS-CoV-2 Vaccination 01/01/2022 Tdap 01/06/2021 Unspecified Sars-Cov-2 Vaccination 01/01/2022,,10/02/2020 Zoster, Recombinant 01/29/2023(Deferred: Patient decision),07/10/2021 Family History Medical History Relation Name Comments Atrial fibrillation Father Coronary artery disease Father Heart attack Father Stroke Father CABG Mother Coronary artery disease Mother Dementia Mother Diabetes Mother Relation Name Status Comments Father Alive Mother Alive Social History Tobacco Use Types Packs/Day Years Used Date Smoking Tobacco: Never Smokeless Tobacco: Never Tobacco Cessation:Counseling Given: Not Answered Alcohol Use Standard Drinks/Week Comments Yes 0 (1 standard drink = 0.6 oz pur e alcohol) occasional Humiliation, Afraid, Rape, and Kick questionnair e Answer Date Recorded Within the last year, have y ou been afraid of your partner or ex-partner? No 02/18/2023 Emotionally Abused Not on file 02/18/2023 Physically Abused Not on file 02/18/2023 Sexually Abused Not on file 02/18/2023 PHQ-2 Answer Date Recorded Patient Health Questionnaire-2 Score 0 10/19/2024 [place] Safety & Environment Answer Date Rec orded Fear of Current or Ex-Partner Not on file Emotionally Abused Not on file 02/23/2024 Physically Abused Not on file 02/23/2024 Sexually Abused Not on file 02/23/2024 Physically or Sexually Abused Not on file Sex and Gender Information Value Date Recorded Sex Assigned at Not on file Gender Identity Not on file Sexual Orientation Not on file Job Start Date Occupation Industry Not on file Not on file Not on file Last Filed Vital Signs Vital Sign Reading Time Taken Comments Blood Pressure 113/74 12/13/2024 4:13 PM EDT Pulse 71 12/13/2024 4:13 PM EDT Temperature 36.8 C (98.3 F) 03/05/2022 2:20 PM EDT Respiratory Rate 16 05/04/2024 4:03 PM EDT Oxygen Saturation 100% 12/13/2024 4:13 PM EDT Inhaled Oxygen Concentration - - Weight 69.9 kg (154 lb) 12/13/2024 4:13 PM EDT Height 165.1 cm (5' 5 ) 12/13/2024 4:13 PM EDT Body Mass Index 25.63 12/13/2024 4:13 PM EDT Plan of Treatment Upcoming Encounters Date Type Department Care Team (Late st Contact Info) Description 03/09/2025 3:15 PM EDT Follow-Up [facility] [address] [place] [address] Tomas Garsia MD [address] [facility] [place] [address] Health Maintenance Due Date Last Done Comments CT Colonography 1968 FIT-DNA 1968 FOBT 1968 Sigmoidoscopy 1968 Hepatitis B Vaccines (1 of 3 - 19+ 3-dose series) 01/23/1987 HPV/Cotest 01/23/1998 Zoster Vaccines (2 of 2) 09/04/2021 07/10/2021 FIT 01/27/2023 01/27/2022 COVID-19 Vaccine ( season) 2024 09/15/2024, 08/07/2022, 08/07/2022, Additional history exists Depression Screening 10/19/2025 10/19/2024 Cervical Cancer Screening 11/23/2027 Pap Smear 11/23/2027 11/23/2024, 09/23/2022 Adult Tetanus 01/06/2031 01/06/2021 Colonoscopy 03/24/2033 03/24/2023, 07/24/2015 Colorectal Cancer Screening 03/24/2033 Influenza Vaccine Completed 07/06/2024, 08/05/2009 HIB Vaccines Aged Out No longer eligi ble based on patient's age to complete this topic HPV Vaccines Aged Out No longer eligi ble based on patient's age to complete this topic IPV Vaccines Aged Out No longer eligi ble based on patient's age to complete this topic Meningococcal B Vaccine Aged Out No l onger eligible based on patient's age to complete this topic Meningococcal Vaccine Aged Out No digna alonso eligible based on patient's age to complete this topic Pneumococcal Vaccine: Pediatrics (0 to 5 Years) and At-Risk Patients (6 to 64 Years) Aged Out No longer eligible based on patient's age to complete this topic Rotavirus Vaccines Aged Out No longer eligible based on patient's age to complete this topic Care Teams Subassembly Assembler Relationship Specialty Start Date End Date Navi Wright MD [address] [facility] [address] [address] PCP - General 07/09/22 Yessenia Kaplan, MOBILE WEB APPLICATION DEVELOPER [address] [place] [phone] Consulting Physician Oncology 02/18/23
--- OUTSIDE RECORDS SUMMARY | 2025-03-02 06:59 | XMS_ITS | Clinical Summary ---
Author Organization [facility] Address [address] [place], [place] [id number] Care Team Providers Care Caustic Cresylate Shift Superintendent Name Role Phone Eder Wright (Hist) Primary Care Provider Unavail able Allergies Active Allergy Reactions Criticality Noted Date Comments Sulfa (Sulfonamide Antibiotics) Other: See Comments Medium 07/31/2014 Flare up her lupus, red blotches Adhesive Tape (Rosins) Other: See Comments Low 07/31/2014 Tears skin off, also metal skin, also rafa Medications hydroxychloroqui ne (PLAQUENIL) 200 mg tablet Take by mouth twice daily. Active tamoxifen (NOLVADEX) 20 mg tablet Take 20 mg by mouth once daily. Active levothyroxine (SYNTHROID) 125 mcg tablet Take 125 mcg by mouth daily before breakfast. Active aspirin, enteric coated (ASPIRIN, ENTERIC COATED) 81 mg EC tablet Take 81 mg by mouth once daily. Active naproxen sodium 220 mg cap Take by mouth twice daily. Active CALCIUM CARBONATE/VITAMI N D3 (CALCIUM 600 + D ORAL) Take by mouth twice daily. Active Magnesium Oxide 500 mg cap Take by mouth once daily. Active pregabalin (LYRICA) 100 mg capsule Take 100 mg by mouth daily at bedtime. Active Social History Tobacco Use Types Packs/Day Years Used Date Smoking Tobacco: Never Alcohol Use Standard Drinks/Week Comments Yes 0 (1 standard drink = 0.6 oz pur e alcohol) occas Comments Unknown Sex and Gender Information Value Date Recorded Sex Assigned at Not on file Legal Sex Female 7:33 PM EDT Gender Identity Not on file Sexual Orientation Not on file Last Filed Vital Signs Vital Sign Reading Time Taken Comments Blood Pressure 101/65 08/13/2014 1:34 PM EST Pulse 87 08/13/2014 1:34 PM EST Temperature - - Respiratory Rate 20 08/13/2014 1:34 PM EST Oxygen Saturation - - Inhaled Oxygen Concentration - - Weight 58.1 kg (128 lb) 08/13/2014 1:34 PM EST Height 165.1 cm (5' 5 ) 08/13/2014 1:34 PM EST Body Mass Index 21.3 08/13/2014 1:34 PM EST Plan of Treatment Health Maintenance Due Date Last Done Comments Anxiety Screening 01/23/1986 Depression Screening 01/23/1986 HIV Screening 01/23/1986 Hepatitis C Screening 01/23/1986 DTaP,Tdap,Td Vaccine (1 - Tdap) 01/23/1987 Hepatitis B Vaccine (1 of 3 - 19+ 3-dose series) 01/23 Cervical Cancer Screening 01/23/[address] Colonography 01/23/2013 Cologuard (FIT-DNA) 01/23/2013 Colonoscopy 01/23/2013 Colorectal Cancer Screening 01/23/2013 Diabetes Screening 01/23/2013 Fecal Occult Blood 01/23/2013 Lipid Screening 01/23/2013 Sigmoidoscopy 01/23/2013 Pneumococcal Vaccine: 50+ (1 of 1 - PCV) 01/23/2018 Shingrix Vaccine (1 of 2) 01/23/2018 Covid-19 Vaccine (1 - 2023- season) 2024 Influenza Vaccine (Season Ended) 2025 Insurance [id number] Care Teams Caustic Cresylate Shift Superintendent Relationship Specialty Start Date End Date Eder Wright (Hist) [address] [place] [address] PCP - General 07/03/14
--- OUTSIDE RECORDS SUMMARY | 2025-03-02 07:00 | XMS_ITS | Encounter Summary ---
Author Organization [facility] Address [address] [place] [address] Care Team Providers Care Laboratory Courier Name Role Phone Navi Wright MD Primary Care Provider [phone] Yessenia Kaplan BOBBIN TRUCKER Unavailable [phone] Reason for Visit * Reason Comments Med Refill Encounter Details Date Type Department Care Team (Late st Contact Info) Description 04/08/2023 Refill Anny Tovar [facility] [address] [place] [address] Kat Hernandez MD [address] [place] [address] Malignant neoplasm of unspecified site of unspecified female breast (CMS/HCC) Social History Tobacco Use Types Packs/Day Years Used Date Smoking Tobacco: Never Smokeless Tobacco: Never Alcohol Use Standard Drinks/Week Comments Yes 0 (1 standard drink = 0.6 oz pur e alcohol) Humiliation, Afraid, Rape, and Kick questionnair e Answer Date Recorded Within the last year, have y ou been afraid of your partner or ex-partner? No 02/18/2023 Emotionally Abused Not on file 02/18/2023 Physically Abused Not on file 02/18/2023 Sexually Abused Not on file 02/18/2023 PHQ-2 Answer Date Recorded Patient Health Questionnaire-2 Score 0 02/18/2023 [place] Safety & Environment Answer Date Rec orded Within the last year, have y ou been afraid of your partner or ex-partner? No 02/18/2023 Emotionally Abused Not on file 02/18/2023 Physically Abused Not on file 02/18/2023 Sexually Abused Not on file 02/18/2023 Physically or Sexually Abused Not on file Sex and Gender Information Value Date Recorded Sex Assigned at Not on file Gender Identity Not on file Sexual Orientation Not on file Job Start Date Occupation Industry Not on file Not on file Not on file documented as of this encounter Miscellaneous Notes * Telephone Encounter - Kiana Burns RN - 04/08/2023 9:58 AM EDT Last visit pt instructed to finish current supply and then stop documented in this encounter Plan of Treatment Upcoming Encounters Date Type Department Care Team (Late st Contact Info) Description 03/09/2025 3:15 PM EDT Follow-Up [facility] [address] [place] [address] Tomas Garsia MD [address] [place] [address] documented as of this encounter Visit Diagnoses Diagnosis Malignant neoplasm of unspecified site of unspecified female breast (CMS/HCC) documented in this encounter Care Teams Laboratory Courier Relationship Specialty Start Date End Date Navi Wright MD [address] [facility] [address] [address] PCP - General 07/09/22 Yessenia Kaplan, [place] [address] [place] [address] Consulting Physician Oncology 02/18/23 documented as of this encounter
--- OUTSIDE RECORDS SUMMARY | 2025-03-02 07:00 | XMS_ITS | Referral Summary ---
Author Organization [facility] Address [address] [place] [address] Care Team Providers Care Food Tray Assembler Name Role Phone Navi Wright MD Primary Care Provider [phone] Yessenia Kaplan [employer]OCIATE Unavailable [phone] Encounters Date Type Department Care Team Description 12/13/2024 3:40 PM EDT Office Visit [facility] [place] [address] [place] [address] Zander Donald MD Paroxysmal A-fib (CMS/HCC) (Primary Dx); Paroxysmal supraventricular tachycardia; H/O cardiac radiofrequency ablation; Other hyperlipidemia; History of breast cancer; Primary malignant neoplasm of female breast (CMS/HCC) from Last 3 Months Allergies Active Allergy Reactions Criticality Noted Date [...] 05/22/2024 Other forms of systemic lupus erythematosus 08/0 10/2023 Abdominal pain, LLQ 03/08/2024 BMI 24.0-24.9, [...] yo woman dx with LEFT breast IDC [id number] ER +4/AL+4 Her 2 non amplified (please note in earlier notes right IDC documented incorrectly. See pathology report) s/p bilateral mastectomy (right pt choice prophylactic) per Dr Draper. OncotypeDx score of 14-no systemic chemotherapy given. GENETIC TESTING, [facility] Multi-Cancer Panel: no pathogenic mutation identified. copied from previous visit ([facility]) Diagnosis: 04/10/2013 Left breast biopsy - Invasive ductal CA, grade 1. DCIS, cribriform type. ER/AL + (>90%), HER-2/julio cesar-negative (ratio 1.2), T: 1c, N: 0, M: x, Oncotype DX score: 14 Diagnosis (R,L): Oncotype DX score: 14 Treatment to date: 06/22/2013 Tamoxifen 20mg. PO daily started Cancer surgery 05/17/2013 Left breast mastectomy with SLN biopsy - Invasive ductal CA, high grade, 1.1cm. 0/8 nodes positive. ER/AL + (4+), HER-2/julio cesar-negative (ratio 1.0). Margins negative. 05/17/2013 Right breast mastectomy - No significant pathology. S/P BSO+ RELL on 08/20/14 CT chest 02/01/2018: No significant chronic interstitial changes or visible acute infiltrates. DEXA 08/24/2018: normal DEXA 08/26/2020: normal BCI results: High risk of recurrence/low likelihood of benefit from extended AI therapy Sjogren's syndrome 04/20/2013 Immunizations Name Administration Dates Next Due Influenza, Injectable, MDCK, preservative free 07/06/2024 Moderna SARS-CoV-2 Vaccination ,01/01/2022,06/18/2021,2020,10/02/2020 Novel [id number], preservative-free 08/05/2009 Pfizer SARS-CoV-2 Vaccination 01/01/2022 Tdap 01/06/2021 Unspecified Sars-Cov-2 Vaccination 01/01/2022,,10/02/2020 Zoster, Recombinant 01/29/2023(Deferred: Patient decision),07/10/2021 Social History Tobacco Use Types Packs/Day Years [...] Info) Description 03/09/2025 3:15 PM EDT Follow-Up [facility] Rheumatology [address] [place] [address] Tomas Garsia MD [address] [place] [address] Care Teams Food Tray Assembler Relationship Specialty Start Date End Date Navi Wright MD [address] [facility] [address] [address] PCP - General 07/09/22 Yessenia Kaplan, [employer] SAL[employer] ASSOCIATE [address] [place] [address] Consulting Physician Oncology 02/18/23
--- OUTSIDE RECORDS SUMMARY | 2025-03-02 07:00 | XMS_ITS | Patient Health Record ---
Author Organization The [facility] in [place] Address [address] [place] [address] Care Team Providers Care Central Office Worker Name Role Phone Eder Wright Primary Care Provider [phone] Allergies Allergen (clinical drug ingredient) Drug/Non Drug Allergy documented on EMR Reaction Allergy Type Onset Date Status Adhesive rash Allergy Active Substance with sulfonamide structure and antibacterial mechanism of action (substance) Sulfa Antibiotics red face, lupus flare Drug Allergy Active Results Component Value Reference Range Notes CBC AUTO DIFF Reviewed date:12/10/2024 10:11:52 AM Interpretation: Performing Lab: Notes/Report: [facility] , White Blood Count 4.6 4.0-11.0 10 [...] 3/uL Performing Lab: see note ML - [facility] LB CPK Reviewed date:12/10/2024 10:11:52 AM Interpretation: Performing Lab: Notes/Report: [facility] , Creatine Kinase 127 26-192 U/L Performing Lab: see note - [facility] LB MICROALBUMIN, RAND UR Reviewed date:12/10/2024 10:11:52 AM Interpretation: Performing Lab: Notes/Report: [facility] , Microalbumin Urine Random <1.3 <=30.0 mg/dL Performing Lab: see note - [facility] LB MYOGLOBIN Reviewed date:12/10/2024 10:11:52 AM Interpretation: Performing Lab: Notes/Report: [facility] , Myoglobin 39 9-82 ng/mL Performing Lab: see note - [facility] LB Total Protein 24 Hour Urine Reviewed date:12/11/2024 02:06:33 PM Interpretation: Performing Lab: Notes/Report: [facility] , Total Protein Urine Random 8.3 <=11.9 mg/dL Total Volume 24 Hour Urine 2350 Total Protein 24 Hour Urine 195.1 <=149.1 mg/24hr Performing Lab: see note - [facility] LB Erythrocyte Sedimentation Ra te Reviewed date:08/30/2024 05:56:10 PM Interpretation: Performing Lab: Notes/Report: [facility] , Erythrocyte Sedimentation Rate 29 <=30 mm/hr Performing Lab: see note - [facility] LB URINE T PROTEIN CREAT RATIO Reviewed date:08/30/2024 05:56:10 PM Interpretation: Performing Lab: Notes/Report: [facility] , Total Protein Urine Random 28.3 <=11.9 mg/dL Creatinine Urine Random 236.70 20.00-30 0.00 mg/dL Protein Creatinine Ratio Urine 0.12 Performing Lab: see note ML - [facility] LB UA RANDOM Reviewed date:08/30/2024 05:56:10 PM Interpretation: Performing Lab: Notes/Report: [facility] , Color Urine YELLOW YELLOW Clarity Urine CLEAR CLEAR Specific [place] Urine >=1.030 1.005-1.025 pH Urine 6.0 5.0-9.0 Protein Urine TRACE NEG/TRACE mg/dL Glucose Urine UA NEGATIVE NEGATIVE mg/dL Bilirubin Urine NEGATIVE NEGATIVE Ketones Urine NEGATIVE NEGATIVE mg/dL Blood Urine NEGATIVE NEGATIVE Nitrite Urine NEGATIVE NEGATIVE Urobilinogen Urine 0.2 0.2-1.0 EU/dL Leukocyte Esterase Urine NEGATIVE NEGATIVE Performing Lab: see note [facility] LB PROF 14(COMP METB) Reviewed date:08/30/2024 05:56:10 PM Interpretation: Performing Lab: Notes/Report: [facility] , Sodium 139 136-145 mmol/L Potassium 3.9 3.5-5.1 mmol/L Chloride 103 98-107 mmol/L Carbon Dioxide 28.2 21.0-32.0 mmol/L Anion Gap 11.7 Glucose 79 74-106 mg/dL Blood Urea Nitrogen 16.0 7.0-18.0 mg/dL Creatinine 0.98 0.55-1.02 mg/dL Estimated GFR ( Mari >60 >=60 mL/min/1.73m 2 Estimated GFR (Non- Raquel 59 >=60 mL/min/1.73m 2 BUN Creatinine Ratio 16.3 Calcium 8.8 8.5-10.1 mg/dL Bilirubin Total 0.5 0.2-1.0 mg/dL Aspartate Amino Transferase 24 15-37 U/L Alanine Aminotransferase 39 14-59 U/L Alkaline Phosphatase 60 46-116 U/L Total Protein 7.5 6.4-8.2 g/dL Albumin Level 3.5 3.4-5.0 g/dL Globulin 4.0 Albumin Globulin Ratio 0.9 Performing Lab: see note ML - [facility] LB LIPID PROFILE Reviewed date:08/30/2024 05:56:10 PM Interpretation: Performing Lab: Notes/Report: [facility] , Triglycerides 85 <=150 mg/dL Cholesterol 242 <=200 mg/dL HDL Cholesterol 106 40-60 mg/dL <40 mg/dl - HIGH CARDIOVASCULAR RISK > or =60 mg/dl - LOW CARDIOVASCULAR RISK LDL Cholesterol Calculated 119.0 <100 mg/dl OPTIMAL 160-189 mg/dl HIGH 100-129 mg/dl NEAR OR ABOVE OPTIMAL 130-159 mg/dl BORDERLINE HIGH >190 mg/dl VERY HIGH VLDL CHOLESTEROL 17.0 Chol HDL Ratio 2.3 4.4 - 7.1 AVERAGE RISK 7.1 - 11.0 MODERATE RISK 3.3 - 4.4 LOW RISK >11.0 HIGH RISK Performing Lab: see note ML - [facility] LB CRP Reviewed date:08/30/2024 05:56:10 PM Interpretation: Performing Lab: Notes/Report: [facility] , C Reactive Protein <0.50 <=0.50 mg/dL Performing Lab: see note ML - [facility] LB CPK Reviewed date:08/30/2024 05:56:10 PM Interpretation: Performing Lab: Notes/Report: [facility] , Creatine Kinase 246 26-192 U/L Performing Lab: see note ML - [facility] LB CBC AUTO DIFF Reviewed date:08/30/2024 05:56:10 PM Interpretation: Performing Lab: Notes/Report: [facility] , White Blood Count 3.9 4.0-11.0 10 3/uL Red Blood Count 4.08 4.20-5.40 10 6/uL Hemoglobin 12.4 12.0-16.0 g/dL Hematocrit 38.7 36.0-48.0 % Mean Corpuscular Volume 94.9 81.0-99.0 fL Mean Corpuscular Hemoglobin 30.4 26.7-34.0 pg Mean Corpuscular HGB Conc 32.0 29.9-35.2 g/dL Red Cell Distribution Width 13.2 11.0-15.0 % Platelet Count 345 150-450 10 3/uL Mean Platelet Volume 9.8 9.5-13.5 fL Neutrophils Percent Auto 59.6 43.0-75.0 % Lymphocytes Percent Auto 23.6 20.5-60.0 % Monocytes Percent Auto 14.2 1.7-12.0 % Eosinophils Percent Auto 1.3 0.9-7.0 % Basophils Percent Auto 1.0 0.2-2.0 % Immature Granulocytes Pct Auto 0.3 0.0-0.5 % Neutrophils Absolute Auto 2.4 1.4-6.5 10 3/uL Lymphocytes Absolute Auto 0.9 1.2-3.8 10 3/uL Monocytes Absolute Auto 0.6 0.3-0.8 10 3/uL Eosinophils Absolute Auto 0.1 0.0-0.7 10 3/uL Basophils Absolute Auto 0.0 0.0-0.1 10 3/uL Immature Granulocytes Abs Auto 0.01 0.00-0.03 10 3/uL Performing Lab: see note ML - [facility] LB IGP,Aptima HPV,Age Gdln Reviewed date:11/28/2024 06:45:38 PM Interpretation: Performing Lab: Notes/Report: SPATULA-ALONE VAGINA [facility] , Age Gdln ACOG Testing Note . Age Algo ACOG Sona... 30-65 01 Source.............Vagi na L-Low Normal,H-High Normal,LL-Alert Low,HH-Alert High 01 =G Pankaj Copeland FLAG LEGEND: TESTS RESULT FLAG UNITS REF RANGE LAB <-Panic Low,>-Panic High,A-Abnormal,AA-Crit ical Abnormal [address], [place] [address] Clinician Provided Cytology Information Jerrica Kam MD, Performed at: No. of containers..01 ThinPrep Vial IGP, Aptima HPV, rfx 16/18,45 Note . Note: Note 02 This liquid based ThinPrep(R) pap test was screened with The Pap smear is a screening test designed to aid in the L-Low Normal,H-High Normal,LL-Alert Low,HH-Alert High the use of an image guided system. FLAG LEGEND: NEGATIVE FOR INTRAEPITHELIAL LESION OR MALIGNANCY. TESTS RESULT FLAG UNITS REF RANGE LAB 02 WB [facility] [place] Performed at: DIAGNOSIS: 02 Satisfactory for evaluation. No endocervical cells are present. This is detection of premalignant and malignant conditions of the uterine cervix. It is not a diagnostic procedure and cancer. Both false-positive and false-negative reports do [address] [place] [address] Specimen adequacy: 02 Performed by: 02 Jerrica Kam MD, HPV Genotype Reflex Note 02 consistent with a history of hysterectomy. Test Methodology: Note 02 . 02 should not be used as the sole means of detecting cervical <-Panic Low,>-Panic High,A-Abnormal,AA-Crit ical Abnormal Criteria not met, HPV Genotype not performed. Rosa Francis, Python Developer (ASCP) occur. HPV Aptima Negative Negative [address], [place] [id number] Traffic Officer: Jerrica Kam MD, Phone: [phone] This nucleic acid amplification test detects fourteen high- [address], [place] [id number] without differentiation. Performed at: [facility] risk HPV types (16,18,31,33,35,39,45,5 1,52,56,58,59,66,68) Performed at: =[facility] Traffic Officer: Jerrica Kam MD, Phone: [phone] Performing Lab: see note [facility] LB XR DEXA axial skeleton Reviewed date:09/17/2024 08:11:15 PM Interpretation: Performing Lab: Notes/Report: Source Facility: [place] [address] XRay Report Signed Patient: TEETEE SMALL MR#: [id number] : 1970 Acct:[id number] Age/Sex: 54 / F ADM Date: 09/14/24 Loc: [facility] Attending Dr: Tomas Garsia Ordering Physician: Tomas Garsia I. Date of Service: 09/14/24 Procedure(s): XR DEXA axial skeleton Accession Number(s): [id number] cc: Tomas Garsia I.; Navi Wright M.D. [place] [address] Patient Name: TEETEE SMALL MRN: [id number] date: 1970 Sex: F Assigned Patient Location: [facility] Current Patient Location: Accession/Order Number: [id number] Exam Date: 09/14/2024 08:20 Report Date: 09/15/2024 07:17 At the request of: TOMAS GARSIA Procedure: XR DEXA axial skeleton EXAMINATION: XR DEXA axial skeleton, 09/14/2024 8:20 AM EST HISTORY: Osteopenia Of Lumbar Spine COMPARISON: 2021, 2019, 2017, 2016. TECHNIQUE: Dual-energy X-ray absorptiometry (DEXA) bone density study performed for the axial skeleton. FINDINGS: Bone mineral density of the lumbar spine L2-L4 measures 1.151 g/sq cm. T score -0.4. Normal Lowest bone mineral density left femoral neck measuring 0.918 g/sq cm. T score -0.9. Normal XR/XR DEXA axial skeleton IMPRESSION: Normal bone mineral density 10 year fracture risk not reported because T score is at or above -1.0 Pharmacologic treatment recommendations * No uniform recommendation applies to all patients. Management plans must be individualized. * Consider initiating pharmacologic treatment in postmenopausal women and men >= 50 years of age who have the following: Primary fracture prevention: * T-score <= - 2.5 at the femoral neck, total hip, lumbar spine, 33% radius (some uncertainty with existing data) by DXA. * Low bone mass (osteopenia: T-score between - 1.0 and - 2.5) at the femoral neck or total hip by DXA with a 10-year hip fracture risk >= 3% or a 10-year major osteoporosis-related fracture risk >= 20% (i.e., clinical vertebral, hip, forearm, or proximal humerus) based on the US-adapted FRAXregistered model. Secondary fracture prevention: * Fracture of the hip or vertebra regardless of BMD [4, 5]. * Fracture of proximal humerus, pelvis, or distal forearm in persons with low bone mass (osteopenia: T-score between - 1.0 and - 2.5). The decision to treat should be individualized in persons with a fracture of the proximal humerus, pelvis, or distal forearm who do not have osteopenia or low BMD [12, 13]. Kari MS, Stephanie SL, Indigo KL, Bennie EM, Sky KG, AJ, Brittanie ES. The clinician's guide to prevention and treatment of osteoporosis. Osteoporos Int. 2021;33(10):4926-2781. doi: 10.1007/m91301-005-37211-s. Epub 2021Jan 29. Erratum in: Osteoporos Int. 2021Apr 30;: PMID: 99426220; PMCID: [id number]. Electronically authenticated by: IDA SOTO Date: 09/15/2024 07:17 Dictated By: Ida Soto M.D. Signed By: 09/15/24719 DD/ 6 TD/TT: [employer] Sales Consultant: [place] [address] XRay Report Signed Patient: TEETEE SMALL MR#: [id number] : 1970 Acct:[id number] Age/Sex: 54 / F ADM Date: 09/14/24 Loc: [facility] Attending Dr: Tomas Garsia Ordering Physician: Tomas Garsia I. Date of Service: 09/14/24 Procedure(s): XR DEX A axial skeleton Accession Number(s): [id number] cc: Tomas Garsia I. ; Navi Wright M.D. The [address] [address] Patient Name: TEETEE SMALL MRN: [id number] date: 1970 Sex: F Assigned Patient Location: [facility] Current Patient Location: Accession/Order Number: [id number] Exam Date: 08:20 Report Date: 09/15/2024 07:17 At the request of: TOMAS GARSIA Procedure: XR DEXA axial skeleton EXAMINATION: XR DEXA axial skeleton, 09/14/2024 8:20 AM EST HISTORY: Osteopenia Of Lumbar Spine COMPARISON: 2021, 2019, 2017, 2015. TECHNIQUE: Dual-ener gy X-ray absorptiometry (DEXA) bone density study performed for the axial skeleton. FINDINGS: Bone mineral density of the lumbar spine L2-L4 measures 1.151 g/sq cm. T score -0.4. Normal Lowest bone mineral density left femoral neck measuring 0.918 g/sq cm. T score -0.9. Normal XR/XR DEXA axial skeleton IMPRESSION: Normal bone mineral density 10 year fracture ris k not reported because T score is at or above -1.0 Pharmacologic treatment recommendations * No uniform recommendation applies to all patients. Management plans must be individualized. * Consider initiatin g pharmacologic treatment in postmenopausal women and men >= 50 years of age w ho have the following: Primary fracture prevention: * T-score <= - 2.5 a t the femoral neck, total hip, lumbar spine, 33% radius (some uncertainty wi th existing data) by DXA. * Low bone mass (osteopenia: T-score between - 1.0 and - 2.5) at the femoral neck or total hip by DXA with a 10-year hip fracture risk >= 3% or a 10-year major osteoporosis-related fracture risk >= 20% (i.e., clinical vertebral, hip, forearm, or proximal humerus) based on the US-adapted FRAXregistered model. Secondary fracture prevention: * Fracture of the hi p or vertebra regardless of BMD [4, 5]. * Fracture of proxim al humerus, pelvis, or distal forearm in persons with low bone mass (osteopeni a: T-score between - 1.0 and - 2.5). The decision to treat should be individualized in persons with a fracture of the proximal humerus, pelvis, or distal forearm who do not have osteopenia or low BMD [12, 13]. Kari MS, Stephanie SL, Indigo KL, Bennie EM, Sky KG, AJ, Brittanie ES. The clinician's guid e to prevention and treatment of osteoporosis. Osteoporos Int. 2021;33(10):4065-7297. doi: 10.1007/y28892-783-969 00-y. Epub 2021Jan 29. Erratum in: Osteoporos Int. 2021Apr 30;: PMID: 99480937; PMCID: [id number]. Electronically authenticated by: IDA SOTO Date: 09/15/2024 07:17 Dictated By: Ida Soto M.D. Signed By: 09/15/24719 DD/ 6 TD/TT: [employer] Sales Consultant: Anti-dsDNA Antibodies Reviewed date:09/03/2024 12:27:12 PM Interpretation: Performing Lab: Notes/Report: [facility] , Anti-dsDNA Antibodies <1 0-9 IU/mL Equivocal 5 - 9 Performed at: - [facility] [place] Negative <5 Traffic Officer: Miles Obrien PhD, Phone: [phone] Positive >6 [address] [place], [place] [id number] Performing Lab: see note LC - [facility] LB C4+C3 Reviewed date:08/31/2024 06:24:35 PM Interpretation: Performing Lab: Notes/Report: [facility] , Complement C3, Serum 114 82-167 mg/dL Complement C4, Serum 17 12-38 mg/dL Performed at: - [facility] [address] [id number] Traffic Officer: Miles Obrien PhD, Phone: [phone] Performing Lab: see note LC - [facility] LB Reason For Referral No Information Medications Medication SIG (Take, Route, Frequency, Duration) Notes Start Date End Date Status Liothyronine Sodium 5 MCG TAKE 1 TABLET BY MOUTH ON AN EMPTY STOMACH ONCE DAILY for 90 days Active Calcium + D3 Active Aspirin 81 81 MG 1 tablet Orally Once a day Active Xeljanz XR 11 MG 1 tablet Orally Once a day Active Vitamin E 400 UNIT 1 capsule Orally Onc e a day Active Doxycycline Monohydrate 100 MG 1 capsule Orally bid for 10 days 05/23/2024 Active Exemestane 25 MG 1 tablet with a meal Orally Once a day Active Cholecalciferol 25 MCG (1000 UT) 1 tablet Orally Once a day Active Levothyroxine Sodium 100 MCG TAKE 1 TABL ET BY MOUTH ONCE DAILY IN THE MORNING ON AN EMPTY STOMACH for 90 Active Cefdinir 300 MG 2 capsule Orally onc e a day for 10 days 05/23/2024 Active Pantoprazole Sodium 40 MG TAKE 1 TABLET BY MOUTH DAILY IN THE EVENING AT BEDTIME for 90 Active Magnesium Oxide 500 MG 1 tablet as neede d Orally Once a day Active Social History Tobacco Use: Social History Observation Description Date Details (start date - stop date) Never Smoker NA - NA Tobacco Use/Smoking Question Answer Notes Patient is a nonsmoker Alcohol Screen (Audit-C) Question Answer Notes Did you have a drink contain ing alcohol in the past year? Yes How often did you have 6 or more drinks on one occasion in the past year? Never (0 point) How many drinks did you have on a typical day when you were drinking in the past year? 1 or 2 drinks (0 point) How often did you have a dri nk containing alcohol in the past year? Weekly (3 points) Points 3 Interpretation Positive Problems Problem Type SNOMED Code ICD Code Onset Dates Problem Status W/U Status Risk Notes Problem 83325580 Hypothyroidism, unspecified (E03.9) Active confirmed Problem 933540229 Gastro-esophagea l reflux disease without esophagitis (K21.9) Active confirmed Problem Information temporarily unavailable Supraventricular tachycardia (I47.1) Active confirmed Problem 44933810 Unspecified atri al fibrillation (I48.91) Active confirmed Problem Information temporarily unavailable Acute recurrent frontal sinusitis (J01.11) Active confirmed Problem Information temporarily unavailable Sebaceous cyst (L72.3) Active confirmed Problem 599087855 Rheumatoid arthritis with rheumatoid factor, unspecified (M05.9) Active confirmed Problem Information temporarily unavailable Systemic lupus erythematosus, organ or system involvement unspecified (M32.10) Active confirmed Problem 28762921 Change in bowel habit (R19.4) Active confirmed Problem Information temporarily unavailable Cervical radiculopathy (M54.12) Active confirmed Problem Information temporarily unavailable Breast cancer (C50.919) Active confirmed Problem Information temporarily unavailable Well adult (Z00.00) Active confirmed Problem Information temporarily unavailable DDD (degenerative disc disease), cervical (M50.30) Active confirmed Problem Information temporarily unavailable H/O bilateral mastectomy (Z90.13) Active confirmed Problem Information temporarily unavailable Sjoegren syndrome (M35.00) Active confirmed Problem Information temporarily unavailable Pericarditis (I31.9) Active confirmed Problem Information temporarily unavailable Raynaud's syndrome (I73.00) Active confirmed Problem Information temporarily unavailable Taste sense altered (R43.2) Active confirmed Problem Information temporarily unavailable Polycystic ovaries (E28.2) Active confirmed Problem Information temporarily unavailable Diffuse connective tissue disease (M35.9) Active confirmed Problem Information temporarily unavailable 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 Problem Information temporarily unavailable 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 Problem Information temporarily unavailable 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) Active confirmed Problem Information temporarily unavailable COVID-19 virus infection (U07.1) Active confirmed Encounters Encounter Location Date Provider Diagnosis [facility] [address] [place] [address] 05/23/2024 Eder Matty [facility] [address] [place] [address] 12/07/2024 Eder Hoy Flank pain R10.9 [facility] [address] [place] [address] 06/27/2024 Eder Hoy Assessments Encounter Date Diagnosis (ICD Code) Assessment Notes Treatment Notes Treatment Clinical Notes Section Notes 12/07/2024 Flank pain (ICD-10 - R10.9) Plan Of Treatment Pending Test Test Name Order Date Holter Test 02/07/2024 CMP (COMPLETE METABOLIC PANEL) 4 CMP (COMPLETE METABOLIC PANEL) 3 HEMOGLOBIN A1C (GLYCO) 02/24/2024 HEMOGLOBIN A1C (GLYCO) 02/05/2023 LIPID PANEL (CHOL/TRIG/HDL/LDL) 02/06/20 23 LIPID PANEL (CHOL/TRIG/HDL/LDL) 02/24/20 24 CBC WITH DIFF 02/24/2024 CBC WITH DIFF 02/05/2023 CT Abdomen and Pelvis w/contrast * 02/05 FREE T3 03/01/2024 FREE T4 03/01/2024 THYROID PANEL (T4/TSH/FREE T3) 3 ECHOCARDIO M/2D COMPLETE 02/07/2024 Next Appt Details Provider Name:Eder Wright, 01:30:00 PM, [address] [place], [address], Insurance Providers Payer Name Payer Address Payer Phone Subscriber Number Group Number Insured Name Patient Relationship to Insured Coverage Start Date Coverage End Date [employer] [address] [place] [address] [id number] Teetee Newton Self - patient is the insured Medical (General) History Medical History History ICD Code COVID-19 virus infection U07.1 Sebaceous cyst L72.3 Taste sense altered R43.2 Varicose veins of lower extremities with inflammation I83.10 Acute recurrent frontal sinusitis J01.11 Disorder involving immune mechanism D89. 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
--- OUTSIDE RECORDS SUMMARY | 2025-03-02 07:00 | XMS_ITS | CCD ---
Author Organization [facility] Care Team Providers Care Director Of Strategic Programs Name Role Phone [employer] Unavailable [...] Unavailable Mariza Wright MD Primary Care Provider [phone] EASTON KEENE Attending Unavailable TODD RENDON Attending Unavailable TODD RENDON Attending Unavailable ALTOROK, NEZAM I Attending Unavailable ALTOROK NEZAM I Attending Unavailable TODD RENDON Attending Unavailable ALTOROK, NEZAM I Attending Unavailable Allergies Allergy Classification Reported Allergen(s) Allergy Type Date of Onset Reaction(s) Facility (2 sources) Benzoyl Peroxide; Translations: [BENZOYL PEROXIDE] Drug Allergy 07-22-20 15 [facility] Repository (1 source) Desonide Drug Allergy 04-05-20 13 [facility] (1 source) Sulfonamides (Antibiotic) Drug allergy (disorder) 04-05-20 13 [facility] (1 source) Misc-Other; Translations: [Misc-Other] Propensity to adverse reactions (disorder) 07-22-20 15 [facility] (3 sources) Sulfonamides (Antibiotic); Translations: [sulfa drugs] Drug allergy Discoloration of skin (finding) General Surgery [place] (5 sources) Benzoyl Peroxide Drug Allergy 09-20-20 23 [facility] (6 sources) Sulfamethoxazole / Trimethoprim; Translations: [SULFAMETHOXAZOLE-T RIMETHOPRIM] Drug Allergy 02-02-20 23 Rash [facility] (5 sources) Sulfonamides (Antibiotic) Drug Allergy 09-20-20 23 [facility] Work Phone: (5 sources) Wound Dressing Adhesive Drug Allergy 09-21-20 14 Unknown [facility] (1 source) Adhesive agent; Translations: [ADHESIVE] Propensity to adverse reactions to drug (disorder) 09-21-20 14 [facility] Repository (1 source) Sulfonamides (Antibiotic); Translations: [SULFA (SULFONAMIDE ANTIBIOTICS)] Propensity to adverse reactions to drug (disorder) 07-31-20 14 [facility] Repository (1 source) ADHESIVE TAPE-SILICONES; Translations: [ADHESIVE TAPE-SILICONES] Propensity to adverse reactions to drug (disorder) 10-07-19 22 [facility] Repository Medications Current Medications Medication Drug Class(es) [...] neoplasm of breast 02-26-2023 Episodic Cardiac dysrhythmias (6 sources) Supraventricular tachycardia; Translations: [Atrial fibrillation] Onset: 4 02-26-2023 Chronic Cardiac dysrhythmias (4 sources) Palpitations; Translations: [Palpitations] Onset: 4 Episodic Disorders of lipid metabolism (5 sources) Other hyperlipidemia; Translations: [Hyperlipidemia] Onset: 2 Chronic Esophageal disorders (3 sources) Gastroesophageal reflux disease without esophagitis; Translations: [Gastro-esophageal reflux disease without esophagitis] Onset: 3 Chronic Immunizations and screening for infectious disease (7 sources) Encounter for screening for other viral diseases; Translations: [Encounter for screening for respiratory tuberculosis] Onset: 2 Episodic Malaise and fatigue (4 sources) Fatigue; Translations: [Other fatigue] Onset: 5 Episodic Osteoarthritis [...] mass index 20-24 - normal 03-03-2023 Unclassified (2 sources) 6 month follow up Onset: 5 Unclassified (1 source) Rheumatoid arthritis with rheumatoid factor of other specified site without organ or systems involvement; Translations: [Rheumatoid arthritis with rheumatoid factor of other specified site without organ or systems involvement] Onset: 2 Unclassified (1 source) Supraventricular tachycardia, unspecified; Translations: [Supraventricular tachycardia, unspecified] Onset: 4 Varicose veins of lower extremity (2 sources) Varicose veins of lower extremity 02-26-2023 Episodic Viral infection (1 source) COVID-19; Translations: [COVID-19] Onset: 2 Past or Other Problems Problem Classification Problem Date Documented Date Episodic/Chronic Other aftercare (4 sources) 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; Translations: [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 DRUG THERAPY] Onset: 08-25-2022 Episodic Other bone disease and musculoskeletal deformities (4 sources) Other specified disorders of bone density and structure, other site; Translations: [OT D/O BONE DEN STRUCT OTH SITE] Onset: [...] site without organ or systems involvement] Onset: 10-19-2024 Unclassified (1 source) Supraventricular tachycardia, unspecified; Translations: [Supraventricular tachycardia, unspecified] Onset: 05-22-2024 Results Test Name Value Interpretation Reference Range Facility Office Visiton 12-13-2024 Follow-up visit [id number] Yamileth Hernandez 1970 F Date Provider Department Center 12/13/2024 [id number] RENDON CARD [facility] Family History Problem Relation Age of Onset Dementia Mother Diabetes Mother Other Mother 59 Coronary artery disease Mother Atrial fibrillation Father Coronary artery disease Father Stroke Father 56 Heart attack Father 62 Family Status - Relation Status Age at Mother Alive Father Alive Level of Service:12737 [place] OFFICE/OUTPATIENT ESTABLISHED LOW MDM 20 MIN Reason for Visit and Comments: 6 month follow up [Other] Atrial Fibrillation [80] Hyperlipidemia [182] Fatigue [46] - Fatigue due to Lupus flare up Palpitations [069590] - Occasionally Recent labs 08/27 and 12/26 [Other] Normal [facility] IGP,APTIMA HPV,AGE GDLNon AGE GDLN ACOG TESTING Note . [facility] Comment on above: TESTS RESULT FLAG UN ITS REF RANGE LAB Clinician Provided Cytology Information Source.............Vagina No. of containers..01 ThinPrep Vial Age Algo ACOG Sona... 30-65 01 FLAG LEGEND: L-Low Normal,H-High Normal,LL-Alert Low,HH-Alert High <-Panic Low,>-Panic High,A-Abnormal,AA-Critical Abnormal Performed at: 01 [address] [id number] Jerrica Kam MD, HPV APTIMA Negative Negative [facility] Comment on above: This nucleic acid am plification test detects fourteen high- risk HPV types (16,18,31,33,35,39,45,51,52,56,58,59,66,68) without differentiation. Performed at: = - [address], [place] [id number] It Desktop Support Specialist: Jerrica Kam MD, Phone: [phone] Performed at: [address], [place] [id number] It Desktop Support Specialist: Jerrica Kam MD, Phone: [phone] IGP, APTIMA HPV, RFX 16/18,45 Note . [facility] Comment on above: TESTS RESULT FLAG U NITS REF RANGE LAB DIAGNOSIS: 02 NEGATIVE FOR INTRAEPITHELIAL LESION OR MALIGNANCY. Specimen adequacy: 02 Satisfactory for evaluation. No endocervical cells are present. This is consistent with a history of hysterectomy. Performed by: 02 Rosa Francis, Public Area Supervisor (ASCP) . 02 Note: Note 02 The Pap [...] Low,>-Panic High,A-Abnormal,AA-Critical Abnormal Performed at: 02 [facility] [address] [place], [place] [id number] Jerrica Kam MD, [facility] Follow-Upon 10-19-2024 Follow-Up [id number] Yamileth Hernandez 1970 Date Provider Department Center 10/19/2024 TOMAS ROBERTO I [facility] Yamil Heal Family History Problem Relation Age of Onset Dementia Mother Diabetes Mother Other Mother 59 Coronary artery disease Mother Atrial fibrillation Father Coronary artery disease Father Stroke Father 56 Heart attack Father 62 Family Status - Relation Status Age at Mother Alive Father Alive Level of Service:05089 [place] OFFICE/OUTPATIENT ESTABLISHED MOD MDM 30 MIN () Reason for Visit and Comments: Follow-up [593706] - Extreme tiredness Normal [facility] Refillon 08-09-2024 Refill [id number] Yamileth Hernandez 1970 Provider Department [place] 08/09/2024 TOMAS ROBERTO I [facility] History Problem Relation Age of Onset Dementia Mother Diabetes Mother Other Mother 59 Coronary artery disease Mother Atrial fibrillation Father Coronary artery disease Father Stroke Father 56 Heart attack Father 62 Family Status - Relation Status Age at Mother Alive Father Alive Reason for Visit and Comments: Med Refill [938430] - Patient called for refill: triamcinolone (Kenalog) 0.1 % oral paste use in mouth or throat if needed for mucositis/ methylPREDNISolone (Medrol) 4 mg tablet take 1 tablet by mouth in morning take 1/2 tablet by mouth everyday as needed. Please advise. Thanks! Normal [facility] 36on 08-01-2024 36 Called and left deta iled message for patient Normal [facility] Refillon 08-01-2024 Refill [id number] Yamileth Hernandez 1970 Provider Department Center 08/01/2024 TOMAS ROBERTO I [facility] Family History Problem Relation Age of Onset Dementia Mother Diabetes Mother Other Mother 59 Coronary artery disease Mother Atrial fibrillation Father Coronary artery disease Father Stroke Father 56 Heart attack Father 62 Family Status - Relation Status Age at Mother Alive Father Alive Reason for Visit and Comments: Med Refill [[id number]] [facility] Orders Onlyon 07-28-2024 Orders Only [id number] Yamileth Hernandez 1970 F Date Provider Department Center 07/28/2024 TOMAS ROBERTO I [facility] Family History Problem Relation Age of Onset Dementia Mother Diabetes Mother Other Mother 59 Coronary artery disease Mother Atrial fibrillation Father Coronary artery disease Father Stroke Father 56 Heart attack Father 62 Family Status - Relation Status Age at Mother Alive Father Alive [facility] 36on 07-26-2024 36 Patient called jus gonzalez if you can put in an order for a DEXA scan for her. She stated that she needed a refill for medrol and triamcinolone. [facility] Telephoneon 07-26-2024 Telephone [id number] Yamileth Hernandez 1970 Provider Department Center 07/26/2024 TOMAS ROBERTO I [facility] Family History Problem Relation Age of Onset Dementia Mother Diabetes Mother Other Mother 59 Coronary artery disease Mother Atrial fibrillation Father Coronary artery disease Father Stroke Father 56 Heart attack Father 62 Family Status - Relation Status Age at Mother Alive Father Alive Reason for Visit and Comments: Request For Order(s) [706] [facility] Refillon 06-14-2024 Refill [id number] Yamileth Hernandez 1970 Date Provider Department Center 06/14/2024 MIKHAIL SNIDER [facility] Family History Problem Relation Age of Onset Dementia Mother Diabetes Mother Other Mother 59 Coronary artery disease Mother Atrial fibrillation Father Coronary artery disease Father Stroke Father 56 Heart attack Father 62 Family Status - Relation Status Age at Mother Alive Father Alive Reason for Visit and Comments: Med Refill [[id number]] [facility] Office Visiton 05-22-2024 Follow-up visit [id number] Yamileth Hernandez 1970 Date Provider Department Center 05/22/2024 [id number] ZAMUDIO Family History Problem Relation Age of Onset Dementia Mother Diabetes Mother Other Mother 59 Coronary artery disease Mother Atrial fibrillation Father Coronary artery disease Father Stroke Father 56 Heart attack Father 62 Family Status - Relation Status Age at Mother Alive Father Alive Level of Service:24525 [place] OFFICE/OUTPATIENT ESTABLISHED LOW MDM 20 MIN Reason for Visit and Comments: Atrial Fibrillation [80] Normal [facility] Follow-Upon 05-04-2024 Follow-Up [id number] Yamileth Hernandeznelson Madhuri 1970 Date Provider Department Center 05/04/2024 215TOMAS FRANCO I [facility] Family History Problem Relation Age of Onset Dementia Mother Diabetes Mother Other Mother 59 Coronary artery disease Mother Atrial fibrillation Father Coronary artery disease Father Stroke Father 56 Heart attack Father 62 Family Status - Relation Status Age at Mother Alive Father Alive Level of Service:05177 [place] OFFICE/OUTPATIENT ESTABLISHED MOD MDM 30 MIN () Reason for Visit and Comments: Follow-up [[id number]] [facility] Office Visiton 03-08-2024 Follow-up visit [id number] Yamileth Hernandez yousuf Dhaliwal 1970 Date Provider Department Center 03/08/2024 [id number] ZAMUDIO Family History Problem Relation Age of Onset Dementia Mother Diabetes Mother Other Mother 59 Coronary artery disease Mother Atrial fibrillation Father Coronary artery disease Father Stroke Father 56 Heart attack Father 62 Family Status - Relation Status Age at Mother Alive Father Alive Level of Service:21070 [place] OFFICE/OUTPATIENT NEW MODERATE MDM 45 MINUTES Normal [facility] Follow-Upon 12-30-2023 Follow-Up [id number] DavidYamileth to 1970 Date Provider Department Center 12/30/2023 215TOMAS FRANCO I [facility] No family history on file Level of Service:35008 [place] OFFICE/OUTPATIENT ESTABLISHED MOD MDM 30 MIN Reason for Visit and Comments: Follow-up [476467] Normal [facility] Cytology Cervical or vaginal smear or scraping studyon 11-16-2023 [facility] Ambulatory Visit Summaryon 0 04-07-2023 Ambulatory [...] erythematosus Varicose veins of legs Normal [facility] General Surgery Office/Clini c Noteon [...] SARS-CoV-2 (COVID-19) mRNA-1273 vaccine 08/07/2022 Recorded SARSCoV2 mRNA(rqfdctcwc-rjti-lcmqkg) vac 01/01/2022 Recorded SARS-CoV-2 (COVID-19) mRNA-1273 vaccine 06/18/2021 Recorded 2023-02-26: TPV50 SARS-CoV-2 (COVID-19) mRNA-1273 vaccine 10/30/2020 Recorded SARS-CoV-2 (COVID-19) mRNA-1273 vaccine 10/02/2020 Recorded [facility] Comment on above: Result Comment: Elec tronically Signed By: RAUDEL PUENTES, Joselo Barrera\Date and Time Signed: 04/07/23 14:01 EDT Reminderson 04-02-2023 Reminders - From: Cristal Gordon LPN To: GSN - Clinical; Sent: 04/02/2023 11:03:11 EDT Show up: 02/21/2033 07:00:00 EDT Subject: colonoscopy recall Due Date/Time: 03/24/2033 07:00:00 EDT Reminder/Recall Patient due for screening colonoscopy 03/24/2033. [facility] Pathology Noteon 03-29-2023 Pathology Note [id number]#1.00CD:127 [facility] Outside Colonoscopyon 2022 Outside Colonoscopy [id number]#1.00CD:127 [facility] Pre-Certification Formon Pre-Certification Form [id number]#1.00CD:127 [facility] Consent for Procedure/Surger yon 03-05-2023 Consent for Procedure/Surgery [id number]#1.00CD:127 Normal [facility] Facesheeton 03-04-2023 Facesheet [id number]#1.00CD:127 Normal [facility] Ambulatory Visit Summaryon 0 03-03-2023 Ambulatory Visit [...] lupus erythematosus Varicose veins of legs Normal [facility] RAD - CT Reporton 03-03-2023 RAD - CT Report [id number]#1.00CD:127 Normal [facility] Physician Referralon 023 Physician Referral [id number]#1.00CD:[address] [facility] [address] ABD/PELV W CONon 02-13-[address] [...] IDA SOTO Date: 2023-02-12 09:54 Normal [facility] QUANTIFERON TB GOLD PLUSon 0 02-07-2023 QuantiFERON Criteria Comment Normal [facility] Comment on above: Result Comment: Rehan [...] test. Performed By: #### Q NTTB #### [facility] [address] [place] [address] Dr. Jazmyn Saavedra QuantiFERON Incubation Incubation performed. Normal [facility] Comment on above: Performed By: #### Q NTTB #### [facility] [address] [place] [address] Dr. Jazmyn Saavedra QuantiFERON Mitogen Value 6.87 IU/mL Normal [facility] Comment on above: Performed By: #### Q NTTB #### [facility] [address] [place] [address] Dr. Jazmyn Saavedra QuantiFERON Nil Value 0.00 IU/mL Normal [facility] Comment on above: Performed By: #### Q NTTB #### [facility] [address] [place] [address] Dr. Jazmyn Saavedra QuantiFERON TB1 Ag Value 0.00 IU/mL Normal [facility] Comment on above: Performed By: #### Q NTTB #### [facility] [address] [place] [address] Dr. Jazmyn Saavedra QuantiFERON TB2 Ag Value 0.00 IU/mL Normal [facility] Comment on above: Performed By: #### Q NTTB #### [facility] [address] [place] [address] Dr. Jazmyn Saavedra QuantiFERON-TB Gold Plus Negative Normal Negative [facility] Comment on above: Result Comment: No r esponse to M tuberculosis antigens detected. Infection with M tuberculosis is unlikely, but high risk individuals should be considered for additional testing (ATS/IDSA/CDC Clinical Practice Guidelines, 2017). The reference range is an Antigen minus Nil result of <0.35 IU/mL. Chemiluminescence immunoassay methodology Performed By: #### Q NTTB #### [facility] [address] [place] [address] Dr. Jazmyn Saavedra HEP B COREon 02-06-2023 Hep B Core Ab, Tot Negative Normal Negative [facility] Comment on above: Performed By: #### S EDR #### [facility] [address] [place] [address] Dr. Jazmyn Saavedra HEP B SURFACE ANTIGEN SCREEN on 02-06-2023 HBsAg Screen Negative Normal Negative [facility] Comment on above: Performed By: #### H BSANS #### [facility] [address] [place] [address] Dr. Jazmyn Saavedra CBC AUTO DIFFon 02-05-2023 BASO # 0.0 103/ul Normal 0.0-0.1 [facility] Comment on above: Performed By: #### C BC #### [facility] [address] [place] [address] Dr. Jazmyn Saavedra Basophils/100 WBC (Bld) 0.5 % Normal 0.2-2.0 [facility] Comment on above: Performed By: #### C BC #### [facility] [address] [place] [address] Dr. Jazmyn Saavedra EO # 0.0 103/ul Normal 0.0-0.7 [facility] Comment on above: Performed By: #### C BC #### [facility] [address] [place] [address] Dr. Jazmyn Saavedra Eosinophils/100 WBC (Bld) 0.8 % Critically low 0.9-7.0 [facility] Comment on above: Performed By: #### C BC #### [facility] [address] [place] [address] Dr. Jazmyn Saavedra Erythrocyte distribution width (RBC) [Ratio] 13.2 % Normal 11.0-15.0 [facility] Comment on above: Performed By: #### C BC #### [facility] [address] [place] [address] Dr. Jazmyn Saavedra Hematocrit (Bld) [Volume fraction] 41.1 % Normal 36.0-48.0 [facility] Comment on above: Performed By: #### C BC #### [facility] [address] [place] [address] Dr. Jazmyn Saavedra Hemoglobin (Bld) [Mass/Vol] 13.4 g/dL Normal 12.0-16.0 [facility] Comment on above: Performed By: #### C BC #### [facility] [address] [place] [address] Dr. Jazmyn Saavedra IG # 0.01 10e3/ul Normal 0.00-0.03 [facility] Comment on above: Performed By: #### C BC #### [facility] [address] [place] [address] Dr. Jazmyn Saavedra IG % 0.3 % Normal 0.0-0.5 [facility] Comment on above: Performed By: #### C BC #### [facility] [address] [place] [address] Dr. Jazmyn Saavedra LYMPH # 1.2 103/ul Normal 1.2-3.8 [facility] Comment on above: Performed By: #### C BC #### [facility] [address] [place] [address] Dr. Jazmyn Saavedra Lymphocytes/100 WBC (Bld) 31.9 % Normal 20.5-60.0 [facility] Comment on above: Performed By: #### C BC #### [facility] [address] [place] [address] Dr. Jazmyn Saavedra MANUAL DIFF REQ NO Normal [facility] Comment on above: Performed By: #### C BC #### [facility] [address] [place] [address] Dr. Jazmyn Saavedra MCH (RBC) [Entitic mass] 30.6 pg Normal 26.7-34.0 [facility] Comment on above: Performed By: #### C BC #### [facility] [address] [place] [address] Dr. Jazmyn Saavedra MCHC (RBC) [Mass/Vol] 32.6 g/dL Normal 29.9-35.2 [facility] Comment on above: Performed By: #### C BC #### [facility] [address] [place] [address] Dr. Jazmyn Saavedra MCV (RBC) [Entitic vol] 93.8 fL Normal 81.0-99.0 [facility] Comment on above: Performed By: #### C BC #### [facility] [address] [place] [address] Dr. Jazmyn Saavedra MONO # 0.5 103/ul Normal 0.3-0.8 [facility] Comment on above: Performed By: #### C BC #### [facility] [address] [place] [address] Dr. Jazmyn Saavedra Monocytes/100 WBC (Bld) 14.1 % Critically high 1.7-12.0 [facility] Comment on above: Performed By: #### C BC #### [facility] [address] [place] [address] Dr. Jazmyn Saavedra NEUT # 1.9 103/ul Normal 1.4-6.5 [facility] Comment on above: Performed By: #### C BC #### [facility] [address] [place] [address] Dr. Jazmyn Saavedra Neutrophils/100 WBC (Bld) 52.4 % Normal 43.0-75.0 [facility] Comment on above: Performed By: #### C BC #### [facility] [address] [place] [address] Dr. Jazmyn Saavedra Platelet mean volume (Bld) [Entitic vol] 9.4 fL Critically low 9.5-13.5 [facility] Comment on above: Performed By: #### C BC #### [facility] [address] [place] [address] Dr. Jazmyn Saavedra PLT 342 103/ul Normal 150-450 [facility] Comment on above: Performed By: #### C BC #### [facility] [address] [place] [address] Dr. Jazmyn Saavedra RBC 4.38 106/ul Normal 4.20-5.40 [facility] Comment on above: Performed By: #### C BC #### [facility] [address] [address] [address] Jazmyn Saavedra WBC 3.7 103/ul Critically low 4.0-11.0 [facility] Comment on above: Performed By: #### C BC #### [facility] [address] [place] [address] Dr. Jazmyn Saavedra FREE THYROXINE INDEX T7on FTI 3.20 Normal 1.30-4.50 [facility] Comment on above: Performed By: #### S EDR #### [facility] [address] [place] [address] Dr. Jazmyn Saavedra T3U 36.0 % Normal 30.0-39.0 [facility] Comment on above: Performed By: #### S EDR #### [facility] [address] [place] [address] Dr. Jazmyn Saavedra T4 [Mass/Vol] 8.90 ug/dL Normal 4.80-13.90 [facility] Comment on above: Performed By: #### S EDR #### [facility] [address] [place] [address] Dr. Jazmyn Saavedra GLYCOHEMOGLOBIN A1Con 2022 ADA RECOMMENDATION SEE BELOW Normal [facility] Comment on above: Result Comment: ADA RECOMMENDED LIMIT 4.0 - 6.0 ADA THERAPEUTIC TARGET < 7.0 ACTION SUGGESTED > 7.0 Performed By: #### S EDR #### [facility] [address] [place] [address] Dr. Jazmyn Saavedra Glucose [Mass/Vol] 123 mg/dL Normal [facility] Comment on above: Performed By: #### S EDR #### [facility] [address] [place] [address] Dr. Jazmyn Saavedra HbA1c (Bld) [Mass fraction] 5.9 % Normal 4.5-6.2 [facility] Comment on above: Performed By: #### S EDR #### [facility] [address] [address] [address] Jazmyn Saavedra LIPID PROFILEon 02-05-2023 CHOL-HDL RATIO NORM SEE BELOW Normal [facility] Comment on above: Result Comment: 3.3 - 4.4 LOW RISK 4.4 - 7.1 AVERAGE RISK 7.1 - 11.0 MODERATE RISK >11.0 HIGH RISK Performed By: #### S EDR #### [facility] [address] [address] [address] Jazmyn Saavedra Cholesterol [Mass/Vol] 256 mg/dL Critically high <=200 [facility] Comment on above: Performed By: #### S EDR #### [facility] [address] [address] [address] Jazmyn Saavedra Cholesterol in HDL [Mass/Vol] 108 mg/dL Critically high 40-60 [facility] Comment on above: Performed By: #### S EDR #### [facility] [address] [address] [address] Jazmyn Saavedra Cholesterol in LDL [Mass/Vol] 139.4 mg/dL Normal [facility] Comment on above: Performed By: #### S EDR #### [facility] [address] [address] [address] Jazmyn Saavedra Cholesterol.total/ Cholesterol in HDL [Mass ratio] 2.4 {ratio} Normal [facility] Comment on above: Performed By: #### S EDR #### [facility] [address] [address] [address] Jazmyn Saavedra HDL NORMAL > or = 60 mg/dl - LO W CARDIOVASCULAR RISK <40 mg/dl - HIGH CARDIOVASCULAR RISK Normal [facility] Comment on above: Performed By: #### S EDR #### [facility] [address] [address] [address] Jazmyn Saavedra LDL CALC NORMAL SEE BELOW Normal [facility] Comment on above: Result Comment: <100 mg/dl OPTIMAL 100 - 129 mg/dl NEAR OR ABOVE OPTIMAL 130 - 159 mg/dl BORDERLINE HIGH 160 - 189 mg/dl HIGH >190 mg/dl VERY HIGH Performed By: #### S EDR #### [facility] [address] [place] [address] Dr. Jazmyn Saavedra Triglyceride [Mass/Vol] 43 mg/dL Normal <=150 [facility] Comment on above: Performed By: #### S EDR #### [facility] [address] [address] [address] Jazmyn Saavedra VLDL CALC 8.6 mg/dL Normal [facility] Comment on above: Performed By: #### S EDR #### [facility] [address] [place] [address] Dr. Jazmyn Saavedra PROF 14(COMP METB)on 023 Albumin [Mass/Vol] 4.0 g/dL Normal 3.4-5.0 [facility] Comment on above: Performed By: #### T 7, CMP, LIPID, TSH #### [facility] [address] [place] [address] Dr. Jazmyn Saavedra Albumin/Globulin [Mass ratio] 0.9 {ratio} Normal [facility] Comment on above: Performed By: #### T 7, CMP, LIPID, TSH #### [facility] [address] [place] [address] Dr. Jazmyn Saavedra ALP [Catalytic activity/Vol] 57 U/L Normal 46-116 [facility] Comment on above: Performed By: #### T 7, CMP, LIPID, TSH #### [facility] [address] [place] [address] Dr. Jazmyn Saavedra ALT [Catalytic activity/Vol] 23 U/L Normal 14-59 [facility] Comment on above: Performed By: #### T 7, CMP, LIPID, TSH #### [facility] [address] [place] [address] Dr. Jazmyn Saavedra Anion gap [Moles/Vol] 13.8 mmol/L Normal [facility] Comment on above: Performed By: #### T 7, CMP, LIPID, TSH #### [facility] [address] [address] [address] Jazmyn Saavedra AST [Catalytic activity/Vol] 23 U/L Normal 15-37 [facility] Comment on above: Performed By: #### T 7, CMP, LIPID, TSH #### [facility] [address] [address] [address] Jazmyn Saavedra Bilirubin [Mass/Vol] 0.6 mg/dL Normal 0.2-1.0 [facility] Comment on above: Performed By: #### T 7, CMP, LIPID, TSH #### [facility] [address] [address] [address] Jazmyn Saavedra Calcium [Mass/Vol] 9.6 mg/dL Normal 8.5-10.1 [facility] Comment on above: Performed By: #### T 7, CMP, LIPID, TSH #### [facility] [address] [address] [address] Jazmyn Saavedra Chloride [Moles/Vol] 100 mmol/L Normal 98-107 [facility] Comment on above: Performed By: #### T 7, CMP, LIPID, TSH #### [facility] [address] [address] [address] Jazmyn Saavedra CO2 [Moles/Vol] 29.9 mmol/L Normal 21.0-32.0 [facility] Comment on above: Performed By: #### T 7, CMP, LIPID, TSH #### [facility] [address] [address] [address] Jazmyn Saavedra Creatinine [Mass/Vol] 0.89 mg/dL Normal 0.55-1.02 [facility] Comment on above: Performed By: #### T 7, CMP, LIPID, TSH #### [facility] [address] [address] [address] Jazmyn Saavedra EGFR-AF COOK ISLANDER >60 Normal >=60 [facility] Comment on above: Performed By: #### T 7, CMP, LIPID, TSH #### [facility] [address] [address] [address] Jazmyn Saavedra EGFR-NON AF [place]OOK ISLANDER >60 Normal >=60 [facility] Comment on above: Performed By: #### T 7, CMP, LIPID, TSH #### [facility] [address] [address] [address] Jazmyn Saavedra Globulin (S) [Mass/Vol] 4.4 g/dL Normal [facility] Comment on above: Performed By: #### T 7, CMP, LIPID, TSH #### [facility] [address] [address] [address] Jazmyn Saavedra Glucose [Mass/Vol] 89 mg/dL Normal 74-[address] [facility] Comment on above: Performed By: #### T 7, CMP, LIPID, TSH #### [facility] [address] [address] [address] Jazmyn Saavedra Potassium [Moles/Vol] 3.7 mmol/L Normal 3.5-5.1 [facility] Comment on above: Performed By: #### T 7, CMP, LIPID, TSH #### [facility] [address] [address] [address] Jazmyn Saavedra Protein [Mass/Vol] 8.4 g/dL Critically high 6.4-8.2 [facility] Comment on above: Performed By: #### T 7, CMP, LIPID, TSH #### [facility] [address] [address] [address] Jazmyn Saavedra Sodium [Moles/Vol] 140 mmol/L Normal 136-[address] [facility] Comment on above: Performed By: #### T 7, CMP, LIPID, TSH #### [facility] [address] [address] [address] Jazmyn Saavedra Urea nitrogen [Mass/Vol] 17.0 mg/dL Normal 7.0-18.0 [facility] Comment on above: Performed By: #### T 7, CMP, LIPID, TSH #### [facility] [address] [place] [address] Dr. Jazmyn Saavedra Urea nitrogen/Creatinin e [Mass ratio] 19.1 mg/mg Normal [facility] Comment on above: Performed By: #### T 7, CMP, LIPID, TSH #### [facility] [address] [address] [address] Jazmyn Saavedra TSHon 02-05-2023 TSH 0.984 uIU/mL Normal 0.358-3.740 [facility] Comment on above: Performed By: #### S EDR #### [facility] [address] [place] [address] Dr. Jazmyn Saavedra PAP ACOG PANEL 2: 30 to 65on 10-07-2022 . . Normal [facility] Comment on above: Result Comment: Perf ormed at: [facility] Performed By: #### S EDR #### [facility] [address] [address] [address] Jazmyn Saavedra Age Gdln ACOG Testing [facility] Comment on above: Performed By: #### S EDR #### [facility] [address] [place] [address] Dr. Jazmyn Saavedra DIAGNOSIS: Comment Normal [facility] Comment on above: Result Comment: NEGA TIVE FOR INTRAEPITHELIAL LESION OR MALIGNANCY. Performed at: [facility] Performed By: #### S EDR #### [facility] [address] [address] [address] Jazmyn Saavedra HPV Aptima Negative Normal Negative [facility] Comment on above: Result Comment: This nucleic acid amplification test detects fourteen high-risk HPV types (16,18,31,33,35,39,45,51,52,56,58,59,66,68) without differentiation. Performed at: =G Performed By: #### S EDR #### [facility] [address] [address] [address] Jazmyn Saavedra HPV Genotype Reflex Comment Normal [facility] Comment on above: Result Comment: Crit eria not met, HPV Genotype not performed. Performed at: [facility] Performed By: #### S EDR #### [facility] [address] [place] [address] Dr. Jazmyn Saavedra Methodology: Comment Normal [facility] Comment on above: Result Comment: This liquid based ThinPrep(R) pap test was screened with the use of an image guided system. Performed at: [facility] Performed By: #### S EDR #### [facility] [address] [address] [address] Jazmyn Saavedra Note: Comment Normal [facility] Comment on above: Result Comment: [...] WB Performed By: #### S EDR #### [facility] [address] [address] [address] Jazmyn Saavedra Performed by: Comment Normal [facility] Comment on above: Result Comment: Daryl Calhoun, Public Area Supervisor (ASCP) Performed at: [facility] Performed By: #### S EDR #### [facility] [address] [address] [address] Jazmyn Saavedra Specimen adequacy: Comment Normal [facility] Comment on above: Result Comment: Sati sfactory for evaluation. Endocervical component may not be distinguished in cases of atrophy. Performed at: [facility] Performed By: #### S EDR #### [facility] [address] [address] [address] Jazmyn Saavedra XR DEXA BONE DENSITYon [...] by: GILBERT GEORGE Date: 2022-08-28 08:47 Normal [facility] CBC AUTO DIFFon 08-25-2022 BASO # 0.0 103/ul Normal 0.0-0.1 [facility] Comment on above: Performed By: #### S EDR #### [facility] [address] [address] [address] Jazmyn Saavedra Basophils/100 WBC (Bld) 0.5 % Normal 0.2-2.0 [facility] Comment on above: Performed By: #### S EDR #### [facility] [address] [address] [address] Jazmyn Saavedra EO # 0.1 103/ul Normal 0.0-0.7 [facility] Comment on above: Performed By: #### S EDR #### [facility] [address] [place] [address] Dr. Jazmyn Saavedra Eosinophils/100 WBC (Bld) 1.2 % Normal 0.9-7.0 [facility] Comment on above: Performed By: #### S EDR #### [facility] [address] [place] [address] Dr. Jazmyn Saavedra Erythrocyte distribution width (RBC) [Ratio] 13.2 % Normal 11.0-15.0 [facility] Comment on above: Performed By: #### S EDR #### [facility] [address] [place] [address] Dr. Jazmyn Saavedra Hematocrit (Bld) [Volume fraction] 38.4 % Normal 36.0-48.0 [facility] Comment on above: Performed By: #### S EDR #### [facility] [address] [place] [address] Dr. Jazmyn Saavedra Hemoglobin (Bld) [Mass/Vol] 12.6 g/dL Normal 12.0-16.0 [facility] Comment on above: Performed By: #### S EDR #### [facility] [address] [place] [address] Dr. Jazmyn Saavedra IG # 0.01 10e3/ul Normal 0.00-0.03 [facility] Comment on above: Performed By: #### S EDR #### [facility] [address] [address] [address] Jazmyn Saavedra IG % 0.2 % Normal 0.0-0.5 [facility] Comment on above: Performed By: #### S EDR #### [facility] [address] [place] [address] Dr. Jazmyn Saavedra LYMPH # 1.7 103/ul Normal 1.2-3.8 [facility] Comment on above: Performed By: #### S EDR #### [facility] [address] [place] [address] Dr. Jazmyn Saavedra Lymphocytes/100 WBC (Bld) 40.8 % Normal 20.5-60.0 [facility] Comment on above: Performed By: #### S EDR #### [facility] [address] [place] [address] Dr. Jazmyn Saavedra MANUAL DIFF REQ NO Normal [facility] Comment on above: Performed By: #### S EDR #### [facility] [address] [place] [address] Dr. Jazmyn Saavedra MCH (RBC) [Entitic mass] 31.0 pg Normal 26.7-34.0 [facility] Comment on above: Performed By: #### S EDR #### [facility] [address] [place] [address] Dr. Jazmyn Saavedra MCHC (RBC) [Mass/Vol] 32.8 g/dL Normal 29.9-35.2 [facility] Comment on above: Performed By: #### S EDR #### [facility] [address] [place] [address] Dr. Jazmyn Saavedra MCV (RBC) [Entitic vol] 94.3 fL Normal 81.0-99.0 [facility] Comment on above: Performed By: #### S EDR #### [facility] [address] [place] [address] Dr. Jazmyn Saavedra MONO # 0.5 103/ul Normal 0.3-0.8 [facility] Comment on above: Performed By: #### S EDR #### [facility] [address] [address] [address] Jazmyn Saavedra Monocytes/100 WBC (Bld) 11.9 % Normal 1.7-12.0 [facility] Comment on above: Performed By: #### S EDR #### [facility] [address] [place] [address] Dr. Jazmyn Saavedra NEUT # 1.9 103/ul Normal 1.4-6.5 [facility] Comment on above: Performed By: #### S EDR #### [facility] [address] [place] [address] Dr. Jazmyn Saavedra Neutrophils/100 WBC (Bld) 45.4 % Normal 43.0-75.0 [facility] Comment on above: Performed By: #### S EDR #### [facility] [address] [place] [address] Dr. Jazmyn Saavedra Platelet mean volume (Bld) [Entitic vol] 9.3 fL Critically low 9.5-13.5 [facility] Comment on above: Performed By: #### S EDR #### [facility] [address] [place] [address] Dr. Jazmyn Saavedra PLT 309 103/ul Normal 150-450 [facility] Comment on above: Performed By: #### S EDR #### [facility] [address] [place] [address] Dr. Jazmyn Saavedra RBC 4.07 106/ul Critically low 4.20-5.40 [facility] Comment on above: Performed By: #### S EDR #### [facility] [address] [place] [address] Dr. Jazmyn Saavedra WBC 4.2 103/ul Normal 4.0-11.0 [facility] Comment on above: Performed By: #### S EDR #### [facility] [address] [place] [address] Dr. Jazmyn Saavedra CRPon 08-25-2022 CRP [Mass/Vol] mg/L Normal <=1.0 [facility] Comment on above: Performed By: #### C RP, CMP, LIPID #### [facility] [address] [place] [address] Dr. Jazmyn Saavedra LIPID PROFILEon 08-25-2022 CHOL-HDL RATIO NORM SEE BELOW Normal [facility] Comment on above: Result Comment: 3.3 - 4.4 LOW RISK 4.4 - 7.1 AVERAGE RISK 7.1 - 11.0 MODERATE RISK >11.0 HIGH RISK Performed By: #### C RP, CMP, LIPID #### [facility] [address] [place] [address] Dr. Jazmyn Saavedra Cholesterol [Mass/Vol] 251 mg/dL Critically high <=200 [facility] Comment on above: Performed By: #### C RP, CMP, LIPID #### [facility] [address] [place] [address] Dr. Jazmyn Saavedra Cholesterol in HDL [Mass/Vol] 102 mg/dL Critically high 40-60 [facility] Comment on above: Performed By: #### C RP, CMP, LIPID #### [facility] [address] [place] [address] Dr. Jazmyn Saavedra Cholesterol in LDL [Mass/Vol] 135.0 mg/dL Normal [facility] Comment on above: Performed By: #### C RP, CMP, LIPID #### [facility] [address] [place] [address] Dr. Jazmyn Saavedra Cholesterol.total/ Cholesterol in HDL [Mass ratio] 2.5 {ratio} Normal [facility] Comment on above: Performed By: #### C RP, CMP, LIPID #### [facility] [address] [place] [address] Dr. Jazmyn Saavedra HDL NORMAL > or = 60 mg/dl - LO W CARDIOVASCULAR RISK <40 mg/dl - HIGH CARDIOVASCULAR RISK Normal [facility] Comment on above: Performed By: #### C RP, CMP, LIPID #### [facility] [address] [place] [address] Dr. Jazmyn Saavedra LDL CALC NORMAL SEE BELOW Normal [facility] Comment on above: Result Comment: <100 mg/dl OPTIMAL 100 - 129 mg/dl NEAR OR ABOVE OPTIMAL 130 - 159 mg/dl BORDERLINE HIGH 160 - 189 mg/dl HIGH >190 mg/dl VERY HIGH Performed By: #### C RP, CMP, LIPID #### [facility] [address] [address] [address] Jazmyn Saavedra Triglyceride [Mass/Vol] 70 mg/dL Normal <=150 [facility] Comment on above: Performed By: #### C RP, CMP, LIPID #### [facility] [address] [address] [address] Jazmyn Saavedra VLDL CALC 14.0 mg/dL Normal [facility] Comment on above: Performed By: #### C RP, CMP, LIPID #### [facility] [address] [address] [address] Jazmyn Saavedra PROF 14(COMP METB)on 022 Albumin [Mass/Vol] 3.9 g/dL Normal 3.4-5.0 [facility] Comment on above: Performed By: #### C RP, CMP, LIPID #### [facility] [address] [address] [address] Jazmyn Saavedra Albumin/Globulin [Mass ratio] 1.0 {ratio} Normal [facility] Comment on above: Performed By: #### C RP, CMP, LIPID #### [facility] [address] [address] [address] Jazmyn Saavedra ALP [Catalytic activity/Vol] 49 U/L Normal 46-116 [facility] Comment on above: Performed By: #### C RP, CMP, LIPID #### [facility] [address] [address] [address] Jazmyn Saavedra ALT [Catalytic activity/Vol] 17 U/L Normal 14-59 [facility] Comment on above: Performed By: #### C RP, CMP, LIPID #### [facility] [address] [address] [address] Jazmyn Saavedra Anion gap [Moles/Vol] 10.1 mmol/L Normal [facility] Comment on above: Performed By: #### C RP, CMP, LIPID #### [facility] [address] [place] [address] Dr. Jazmyn Saavedra AST [Catalytic activity/Vol] 19 U/L Normal 15-37 [facility] Comment on above: Performed By: #### C RP, CMP, LIPID #### [facility] [address] [address] [address] Jazmyn Saavedra Bilirubin [Mass/Vol] 0.5 mg/dL Normal 0.2-1.0 [facility] Comment on above: Performed By: #### C RP, CMP, LIPID #### [facility] [address] [place] [address] Dr. Jazmyn Saavedra Calcium [Mass/Vol] 9.3 mg/dL Normal 8.5-10.1 [facility] Comment on above: Performed By: #### C RP, CMP, LIPID #### [facility] [address] [place] [address] Dr. Jazmyn Saavedra Chloride [Moles/Vol] 103 mmol/L Normal 98-107 [facility] Comment on above: Performed By: #### C RP, CMP, LIPID #### [facility] [address] [place] [address] Dr. Jazmyn Saavedra CO2 [Moles/Vol] 30.1 mmol/L Normal 21.0-32.0 [facility] Comment on above: Performed By: #### C RP, CMP, LIPID #### [facility] [address] [place] [address] Dr. Jazmyn Saavedra Creatinine [Mass/Vol] 0.80 mg/dL Normal 0.55-1.02 [facility] Comment on above: Performed By: #### C RP, CMP, LIPID #### [facility] [address] [place] [address] Dr. Jazmyn Saavedra EGFR-AF [place] ISLANDER >60 Normal >=60 [facility] Comment on above: Performed By: #### C RP, CMP, LIPID #### [facility] [address] [place] [address] Dr. Jazmyn Saavedra EGFR-NON AF [place] ISLANDER >60 Normal >=60 [facility] Comment on above: Performed By: #### C RP, CMP, LIPID #### [facility] [address] [place] [address] Dr. Jazmyn Saavedra Globulin (S) [Mass/Vol] 4.1 g/dL Normal [facility] Comment on above: Performed By: #### C RP, CMP, LIPID #### [facility] [address] [address] [address] Jazmyn Saavedra Glucose [Mass/Vol] 92 mg/dL Normal 74-106 [facility] Comment on above: Performed By: #### C RP, CMP, LIPID #### [facility] [address] [address] [address] Jazmyn Saavedra Potassium [Moles/Vol] 4.2 mmol/L Normal 3.5-5.1 [facility] Comment on above: Performed By: #### C RP, CMP, LIPID #### [facility] [address] [place] [address] Dr. Jazmyn Saavedra Protein [Mass/Vol] 8.0 g/dL Normal 6.4-8.2 [facility] Comment on above: Performed By: #### C RP, CMP, LIPID #### [facility] [address] [place] [address] Dr. Jazmyn Saavedra Sodium [Moles/Vol] 139 mmol/L Normal 136-145 [facility] Comment on above: Performed By: #### C RP, CMP, LIPID #### [facility] [address] [place] [address] Dr. Jazmyn Saavedra Urea nitrogen [Mass/Vol] 20.0 mg/dL Critically high 7.0-18.0 [facility] Comment on above: Performed By: #### C RP, CMP, LIPID #### [facility] [address] [place] [address] Dr. Jazmyn Saavedra Urea nitrogen/Creatinin e [Mass ratio] 25.0 mg/mg Normal [facility] Comment on above: Performed By: #### C RP, CMP, LIPID #### [facility] [address] [place] [address] Dr. Jazmyn Saavedra SED RATE [facility] 2021 SED RATE 47 mm/hr Critically high <=30 [facility] Comment on above: Performed By: #### S EDR #### [facility] [address] [place] [address] Dr. Jazmyn Saavedra ASYMPTOMATIC COVID-19 ANTIGE Non 05-18-2022 EUA Statement SEE BELOW Normal [facility] Comment on above: Result Comment: [...] sooner. Performed By: #### S EDR #### [facility] [address] [place] [address] Dr. Jazmyn Saavedra SARS-CoV-2 (COVID-19) RNA NILES+probe Ql (Unsp spec) Positive Critically abnormal NEGATIVE [facility] Comment on above: Result Comment: SARS -CoV-2 antigen present; does not rule out coinfection with other pathogens. Performed By: #### S EDR #### [facility] [address] [place] [address] Dr. Jazmyn Saavedra [facility]on SARS-CoV-2 (COVID-19) RNA NILES+probe Ql (Unsp spec) Detected Critically abnormal NOT DETECTED [facility] Comment on above: Result Comment: This test is not yet approved or cleared by the [place] FDA. When there are no FDA-approved or cleared tests available, and other criteria are met, FDA can make tests available under an emergency access mechanism called an Emergency Use Authorization (EUA). The EUA for this test is supported by the [place] of Health and Human Service's declaration that [...] longer be used). Performed By: #### C [facility] #### [facility] [address] [place], [place] [address] Dr. Jazmyn BARLOW MULTI-CANCER PANELon 02-12-2021 RESULT Results to be mailed directly to physician's office by reference lab. Normal [facility] Comment on above: Result Comment: Test performed by [facility] [address] [place] [address] [phone] No result expected. For billing and tracking purposes only. Performed By: #### 3 [id number] #### [facility] [address] Vital Signs Date Time Vital Sign Value Performing Clinician Facility 11-23-2024 09:55-0500 Body mass index (BMI) [Ratio] 25.63 kg/m2 Easton Jassi DO Work Phone: [facility] 11-23-2024 09:55-0500 Body weight 69.85 kg Easton Jassi DO Work Phone: [facility] 11-23-2024 09:55-0500 Diastolic blood pressure 72 mm[Hg] Easton Jassi DO Work Phone: [facility] 11-23-2024 09:55-0500 Systolic blood pressure 124 mm[Hg] Easton Jassi DO Work Phone: [facility] 11-16-2023 11:39-0500 Body mass index (BMI) [Ratio] 24.96 kg/m2 Easton Jassi DO Work Phone: [facility] 11-16-2023 11:39-0500 Body weight 68.04 kg Easton Jassi DO Work Phone: [facility] 11-16-2023 11:39-0500 Diastolic blood pressure 72 mm[Hg] Easton Jassi DO Work Phone: [facility] 11-16-2023 11:39-0500 Systolic blood pressure 118 mm[Hg] Easton Jassi DO Work Phone: [facility] 03-03-2023 14:35-0400 Blood Pressure Location Joselo NILL General Surgery [facility] 03-03-2023 14:35-0400 Diastolic blood pressure 68 mm[Hg] Joselo NILL [facility] 03-03-2023 14:35-0400 Heart rate 68 /min Joselo NILL [facility] 03-03-2023 14:35-0400 Respiratory rate 16 /min Joselo NILL [facility] [place] 03-03-2023 14:35-0400 Systolic blood pressure 114 mm[Hg] Joselo NILL [facility] Encounters Encounter Date Encounter Type Care Provider Facility Start: 12-13-2024 ambulatory [facility] Start: 11-23-2024 End: 11-23-2024 Bamboo flowsheet Easton Jassi DO Work Phone: [facility] Start: 11-23-2024 End: 11-28-2024 Bamboo flowsheet Easton Jassi DO Work Phone: [facility] Start: 11-23-2024 End: 11-28-2024 Clinisync Result Encounter Easton Jassi DO Work Phone: [facility] External Department Unsolicited Start: 11-23-2024 End: 11-23-2024 ambulatory EASTON JASSI Not Available Start: 11-23-2024 End: 11-23-2024 Patient encounter procedure Easton Jassi DO Work Phone: [facility] Start: 11-23-2024 End: 11-23-2024 Periodic preventive med est patient 40-64yrs Easton Jassi DO Work Phone: [facility] Comment on above: Well woman exam with routine gynecological exam; Breast cancer screening by mammogram; Encounter for screening for osteoporosis Start: 10-19-2024 End: 10-19-2024 ambulatory [facility] Start: 05-22-2024 End: 05-22-2024 ambulatory [facility] Start: 05-04-2024 End: 05-04-2024 ambulatory [facility] Start: 03-08-2024 End: 03-08-2024 ambulatory [facility] Start: 12-30-2023 End: 12-30-2023 ambulatory [facility] Start: 11-16-2023 End: 11-16-2023 Postop follow up visit related to original px Easton Keene DO Work Phone: [facility] Comment on above: Encounter for repeat Pap smear due to previous insuff cervical cells Start: 04-07-2023 End: 04-08-2023 ambulatory Joselo STARKS Facility:[facility] Start: 04-07-2023 End: 04-07-2023 Patient encounter procedure Joselo R NILL General Surgery Nill/Said [facility] Start: 03-24-2023 End: 03-25-2023 ambulatory Joselo R GHISLAINEL Facility:CD:[id number] Start: 03-03-2023 End: 03-04-2023 ambulatory Mariza Matty Facility:[facility] Start: 03-03-2023 End: 03-03-2023 Patient encounter procedure Joselo R NILL General Surgery Nill/Said [facility] Start: 02-18-2023 ambulatory Mariza Matty Facility:[facility] Start: 02-12-2023 Encounter for genera l adult medical examination without abnormal findings MARIZA WRIGHT [facility] Start: 02-12-2023 End: 02-13-2023 ambulatory MARIZA WRIGHT Facility:[facility] Start: 02-05-2023 End: 02-06-[address] DOCTOR KELLOGG Facility:[facility] Start: 02-05-2023 End: 02-06-2023 Encounter for general adult medical examination without abnormal findings MARIZA WRIGHT Facility:[facility] Start: 02-04-2023 End: 02-05-[address] [...] Performing Clinician Start: 11-23-2024 IGP,APTIMA HPV,AGE GDLN [employer] Work Phone: Start: 11-16-2023 Microscopic observation [Identifier] in Cervix by Cyto stain [employer] Work Phone: Start: 11-16-2023 Cytp cerv/vag auto thin layer prep mnl screen [email or web address] Phone: Start: 03-24-2023 Colonoscopy [employer] Work Phone: Start: 03-24-2023 Colonoscopy Joselo [employer] Start: 03-24-2023 Esophagogastroduodenoscopy Joselo [employer] Start: 09-23-2022 Microscopic observation [Identifier] in Cervix by Cyto stain [employer] Work Phone: Start: 07-24-2015 Colonoscopy Joselo NILL Start: 02-01-2007 Colonoscopy Joselo NILL Bilateral mastectomy Joselo NILL Biopsy of breast Joselo Galeas section Joselo Galeas Excision of cervical intervertebral disc Joselo STARKS Excision of lymph node Tony STARKS Comment on above: left inguinal Excision of salivary gland Madhuri STARKS Comment on above: x2 Granuloma (morpholog ic abnormality) Joselo STARKS Comment on above: x 2 History of radiofreq uency ablation operation for arrhythmia Joselo STARKS Total abdominal hyst erectomy with bilateral salpingo-oophorectomy Joselo STARKS Plan of Treatment Date Care Activity Detail Author Start: 03-24-2033 Screening for malignant neoplasm of colon [facility] Start: 11-16-2028 Screening for malignant neoplasm of cervix [facility] Start: 09-23-2027 Screening for malignant neoplasm of cervix [facility] Start: 11-28-2025 End: 11-28-2025 Patient encounter procedure 11/28/2025 1:00 PM EST Office Visit [facility] [address] [address] Easton Keene, DO [address] [place], [place] [address] [facility] Start: 01-27-2025 Screening for malignant neoplasm of colon FIT-DNA [facility] Start: 11-20-2024 End: 11-20-2024 Patient encounter procedure 11/20/2024 4:00 PM EST Office Visit [facility] [address] [place] [address] Easton Keene, DO [address] [place], [place] [id number] [facility] Start: 06-04-2023 Influenza vaccination Influenza Vacc ine (#1) [facility] Start: 2008 Screening for malignant neoplasm of breast Mammogram [facility] Start: 1968 Screening for malignant neoplasm of colon [facility] THIN PREP TIS PAP AN D HR HPV DNA THIN PREP TIS PAP AND HR HPV DNA Pathology and Cytology Routine Well woman exam with routine gynecological exam Ordered: 11/23/2024 [facility] Work Phone: Comment on above: Ordered: 11/23/2024 Immunizations Immunization Date Immunization Notes Care Provider Fa david 08-07-2022 SARS-CoV-2 (COVID-19 ) mRNA-1273 vaccine Joselo NILL [facility] 01-01-2022 SARS-CoV-2 mRNA (vrupggrkevu-abxr-rnktw se) vaccine Joselo NILL [facility] 06-18-2021 SARS-CoV-2 (COVID-19 ) mRNA-1273 vaccine Joselo NILL [facility] Comment on above: Result Comment: 2022: [id number] 10-30-2020 SARS-CoV-2 (COVID-19 ) mRNA-1273 vaccine Joselo NILL [facility] 10-02-2020 SARS-CoV-2 (COVID-19 ) mRNA-1273 vaccine Joselo NILL [facility] Payers Date Payer Category [facility]ayer [facility] [id number] 2022 Unknown BCBS BCBS [id number] 2022-Present [phone] [address] [place] [address] [id number] 2022 Unknown [id number] 2019 Unknown [id number] 1968 Unknown [id number] 2.16.840.1.341622.3.579.2. 593 1968 Unknown [id number] 2.16.840.1.468559.3.579.2. 593 1968 Unknown [id number] 2.16.840.1.058286.3.579.2. 593 1968 Unknown [id number] 2.16.840.1.210884.3.579.2. 593 1968 Unknown [id number] 2.16.840.1.568023.3.579.2. 593 1968 Unknown [id number] 2.16.840.1.371257.3.579.2. 593 1968 Unknown [id number] 2.16.840.1.604696.3.579.2. 593 1968 Unknown [id number] 2.16.840.1.377865.3.579.2. 593 1968 Unknown [id number] 2.16.840.1.853217.3.579.2. 593 1968 Unknown [id number] 2.16.840.1.314431.3.579.2. 727 1968 Unknown [id number] 2.16.840.1.660651.3.579.2. 727 1968 Unknown [id number] 2.16.840.1.524050.3.579.2. 727 1968 Unknown [id number] 2.16.840.1.633780.3.579.2. 1259 1959 Self-pay [id number] Unknown [id number] 2.16.840.1.129649.3.579.2. 593 Social History Date Type Detail Facility Start: 03-03-2023 End: 09-24-2023 Tobacco smoking status Never smoked tobacco (finding) [facility] Tobacco smoking status Never [facility] Start: 09-24-2023 End: 11-23-2024 Sex Assigned At Female Tahir Garrett [facility] Start: 10-28-2023 End: 11-23-2024 Alcohol intake Current [...] Facility 03-03-2023 Functional Status N/A [facility] Clinical Notes 02-04-2023 to 12-13-2024 Vibha Jordan LPN - 11/23/2024 9:30 AM ESTEaston Keene, DO - 11/16/2023 11:20 AM EST Note Date & Type Note Facility 12-13-2024 Note [facility] Note Reason for cardiology follow-up: A-fib HPI 12/13/2024 Patient is here today for follow-up visit. She states that she has been doing well. She reports sporadic occasions of sharp left chest pain which lasts 1 or 2 minutes. She denies exertional dyspnea, orthopnea or paroxysmal nocturnal dyspnea. She denies dizziness or syncope. She reports little brief fluttering every once a while not related to exertion. She denies legs edema or legs discomfort on exertion 05/22/2024 Patient states that she has been [...] post ablation about 20 years ago at [facility]. History of pericarditis remotely. She has history of lupus/rheumatoid arthritis, hypothyroidism, and GERD. She presented to [facility] ED 02/05/2024 for palpitations and [...] did not advise anticoagulation due to low [id number]-[id number] score of 1. Few weeks ago she [...] (CMS/HCC), Cancer (CMS/HCC), History of pericarditis, Hyperlipidemia, Lupus, and RA (rheumatoid arthritis) (CMS/HCC). Surgical History [...] capsule by mouth., Disp: , Rfl: hydroxychloroquine (Plaquenil) 200 mg tablet, TAKE 1 AND 1/2 TABLETS BY MOUTH IN THE MORNING, Disp: 90 tablet, Rfl: 5 levothyroxine (Synthroid, Levoxyl (more content not included)... [facility] 11-23-2024 History of Present illness Narrative Reason [...] Left 2006 inguinal lymph node MASTECTOMY Bilateral 2012 with Left sentinel node biopsy OTHER SURGICAL HISTORY 1983 Polycystic ovarian disease OTHER SURGICAL HISTORY 1988 Cheek biopsies x 2 OTHER SURGICAL HISTORY 1994 Excision of ranulas x 2 OTHER SURGICAL HISTORY 2001 Catheter Ablation for SVT TOTAL ABDOMINAL HYSTERECTOMY W/ BILATERAL SALPINGOOPHORECTOMY 2013 REVIEW OF SYSTEMS Review of Systems: Review [...] nursing note reviewed. Exam conducted with a claim clerk present. Vitals: Estimated body mass index is [...] Easton Keene DO documented in this encounter [facility] 10-19-2024 Note Attestation signed by Tomas Garsia MD at 10/19/2024 3:34 PM GC: I [...] of 10/28, patient says she did in [place] on 08/27 and will arrange to get [...] in a few months Seen by Dr Garsia and Dr Matamoros [facility] 05-22-2024 Note [facility] Note [...] post ablation about 20 years ago at [facility]. History of pericarditis remotely. She has history of lupus/rheumatoid arthritis, hypothyroidism, and GERD. She presented to [facility] ED 02/05/2024 for palpitations and [...] did not advise anticoagulation due to low DAP8YP2-WDCy score of 1. Few weeks ago she [...] Disp: , Rfl: (more content not included)... [facility] 05-04-2024 Note Attestation signed by Tomas Garsia MD at 05/04/2024 8:26 PM GC: I [...] to the Rheumatology activity and [facility]. Assessment/Plan 54 yo F with [...] in a few months Seen by Dr Garsia and Dr Matamoros [facility] 03-08-2024 Note [facility] Note Reason for cardiology consult: Ref from Dr. Mariza Wright for afib. Chief Complaint: Palpitation HPI: Teetee Hernandez is a 54 y.o. female with prior history of SVT status post ablation about 20 years ago at [facility]. History of pericarditis remotely. She has history of lupus/rheumatoid arthritis, hypothyroidism, and GERD. She presented to [facility] ED 02/05/2024 for palpitations and [...] did not advise anticoagulation due to low [id number]-WNFb score of 1. Few weeks ago she [...] BMI 24.42 kg/m??? (more content not included)... [facility] 12-30-2023 Note Subjective Patient ID: Teetee Hernandez [...] is currently no information documented [facility]. Go to the Rheumatology activity [...] more symptom control; side effects including increased [facility] 11-16-2023 History of Present illness Narrative Reason for Appointment: Patient ID: eTetee Hernandez is a 53 y.o. female who [...] Easton Keene DO documented in this encounter [facility] 03-03-2023 Note Chief Complaint consultation for [...] History of pericar (more content not included)... [facility] Comment on above: Result Comment: Elec tronically [...] authenticated by: IDA SOTO Date: 2023-02-04 18:18 [facility] 02-04-2023 Note PROCEDURE: XR HIP [...] authenticated by: IDA SOTO Date: 2023-02-04 18:17 [facility] 02-04-2023 Note PROCEDURE: XR FOOT R T MIN 3 VIEWS COMPARISON: None. HISTORY: Rheumatoid factor positive rheumatoid arthritis FINDINGS: BONES:No acute fracture or dislocation. Mild enthesopathic spurring of the calcaneus at the Achilles insertion. SOFT TISSUES:Negative. No visible soft tissue swelling. EFFUSION:None visible. OTHER: Negative. IMPRESSION: Mild calcaneal Achilles enthesopathy Electronically authenticated by: IDA SOTO Date: 2023-02-04 18:16 [facility] Evaluation + Plan note No data available for this section [facility] Evaluation note Diagnosis Encounter for repeat Pap smear due to previous insuff cervical cells documented in this encounter [facility] HealthcareEvaluation note* Diagnosis Well woman exam with routine gynecological exam Routine gynecological examination Breast cancer screening by mammogram Encounter for screening for osteoporosis documented in this encounter [facility] Discharge instructions No data available for this section [facility] [place] Progress note No data available for this section [facility] [place] Summary Purpose Family History No Family History Records FoundNo Family History Records FoundNo Family History Records FoundNo Family History Records FoundNo Family History Records Found Advance Directives No Advanced Directives Records FoundNo Advanced Directives Records FoundNo Advanced Directives Records FoundNo Advanced Directives Records FoundNo Advanced Directives Records Found Additional Source Comments INFORMATION SOURCE (unrecogn ized section and content) DATE CREATED AUTHOR 03/16/2021 [facility] DATE CREATED AUTHOR AUTHOR'S ORGANIZ ATION 02/15/2023 [facility] DATE CREATED AUTHOR AUTHOR'S ORGANIZ ATION 04/08/2023 [employer] [employer] DATE CREATED AUTHOR AUTHOR'S ORGANIZ ATION 11/25/2024 [facility] DATE CREATED AUTHOR AUTHOR'S ORGANIZ ATION 12/19/2024 [facility] Patient Care team informatio n (unrecognized section and content) Director Of Strategic Programs Relationship Specialty Start Date End Date Mariza Wright MD [address] [place] [phone] PCP - General 09/27/23 Director Of Strategic Programs Relationship Specialty Start Date End Date Mariza Wright MD [address] [place] [address] PCP - General 09/27/23 Director Of Strategic Programs Relationship Specialty Start Date End Date Mariza Wright MD [address] [place] [address] PCP - General 09/27/23 Director Of Strategic Programs Relationship Specialty Start Date End Date Mariza Wright MD [address] [place] [address] PCP - General 09/27/23 Reason for Visit [...] BE BASED ON THE PRIMARY CLINICAL RECORDS. [facility] [employer] [facility]. provides no warranty or guarantee of the accuracy or completeness of information in this document.
[2025-03-02 07:14] LABS: Basophils Percent Auto 0.9 % (0.2-2.0); Eosinophils Absolute Auto 0.1 10^3/uL (0.0-0.7); Eosinophils Percent Auto 1.7 % (0.9-7.0); Hematocrit 38.6 % (36.0-48.0); Hemoglobin 12.8 g/dL (12.0-16.0); Lymphocytes Absolute Auto 1.5 10^3/uL (1.2-3.8); Mean Corpuscular HGB Conc 33.2 g/dL (29.9-35.2); Mean Corpuscular Hemoglobin 31.5 pg (26.7-34.0); Mean Corpuscular Volume 95.1 fL (81.0-99.0); Mean Platelet Volume 9.6 fL (9.5-13.5); Monocytes Absolute Auto 0.6 10^3/uL (0.3-0.8); Monocytes Percent Auto 14.4 % (1.7-12.0); Platelet Count 305 10^3/uL (150-450); Red Blood Count 4.06 10^6/uL (4.20-5.40); Red Cell Distribution Width 13.4 % (11.0-15.0); White Blood Count 4.2 10^3/uL (4.0-11.0)
[2025-03-02 08:29] LABS: Estimated Average Glucose 128 mg/dL; Glycohemoglobin A1C 6.1 % (4.5-6.2)
[2025-03-02 08:45] LABS: Alanine Aminotransferase 36 U/L (14-59); Albumin Globulin Ratio 0.9; Albumin Level 3.7 g/dL (3.4-5.0); Alkaline Phosphatase 55 U/L (46-116); Anion Gap 12.6; Aspartate Amino Transferase 28 U/L (15-37); BUN Creatinine Ratio 23.6; Bilirubin Total 0.5 mg/dL (0.2-1.0); Carbon Dioxide 30.4 mmol/L (21.0-32.0); Chloride 103 mmol/L (98-107); Chol HDL Ratio 2.3; Cholesterol 262 mg/dL (<=200); Estimated GFR (African America >60 (>=60 mL/min/1.73m^2); Estimated GFR (Non-African Ame >60 (>=60 mL/min/1.73m^2); Globulin 4.1 g/dL; Glucose 92 mg/dL (74-106); HDL Cholesterol 115 mg/dL (40-60); Sodium 142 mmol/L (136-145); Thyroid Stimulating Hormone 2.913 uIU/mL (0.358-3.740); Total Protein 7.8 g/dL (6.4-8.2); Triglycerides 68 mg/dL (<=150); VLDL CHOLESTEROL 13.6 mg/dL
== END 2025-03-02 06:58 | disposition home or self-care (01) ==
LOC: LAB 06:58
PROVIDERS: PCP Family Medicine; Visit Provider Family Medicine
DX: Z00.00 Encounter for general adult medical examination without abnormal findings (principal)
CPT/HCPCS: 36415; 80053; 80061; 83036; 84443; 85025

== ENCOUNTER 2025-03-14 13:00 | Outpatient (OUT) | payer BC, SELFPAY ==
--- OUTSIDE RECORDS SUMMARY | 2025-03-18 14:42 | XMS_ITS | CCD ---
Author Organization [facility] Care Team Providers Care Cigarette Machine Filler Name Role Phone SILVIAYLIBBYMARIZA Consulting Unavailable HOY, [...] Admitting Unavailable Hoy, Mariza Primary Care Physician [phone] Mariza Wright Referring Unavailable Joselo STARKS Attending Unavailable Joselo STARKS Attending Unavailable Joselo STARKS Attending Unavailable Mariza Wright MD Primary Care Provider [phone] EASTON KEENE Attending Unavailable TODD RENDON Attending Unavailable ALTOROK, NEZAM I Attending Unavailable TODD RENDON Attending Unavailable ALTOROK, NEZAM I Attending Unavailable ALTOROK, NEZAM I Attending Unavailable Allergies Allergy Classification Reported Allergen(s) Allergy Type Date of Onset Reaction(s) Facility (2 sources) Benzoyl Peroxide; Translations: [BENZOYL PEROXIDE] Drug Allergy 07-22-20 15 [facility] (1 source) Desonide Drug Allergy 04-05-20 13 [facility] (1 source) Sulfonamides (Antibiotic) Drug allergy (disorder) 04-05-20 13 [facility] (1 source) Misc-Other; Translations: [Misc-Other] Propensity to adverse reactions (disorder) 07-22-20 15 [facility] (3 sources) Sulfonamides (Antibiotic); Translations: [sulfa drugs] Drug allergy Discoloration of skin (finding) General Surgery [place] (5 sources) Benzoyl Peroxide Drug Allergy 09-20-20 23 [facility] (6 sources) Sulfamethoxazole / Trimethoprim; Translations: [SULFAMETHOXAZOLE-T RIMETHOPRIM] Drug Allergy 02-02-20 23 Rash [facility] (5 sources) Sulfonamides (Antibiotic) Drug Allergy 09-20-20 23 [facility] Work Phone: (5 sources) Wound Dressing Adhesive Drug Allergy 09-21-20 14 Unknown [facility] (1 source) Adhesive agent; Translations: [ADHESIVE] Propensity to adverse reactions to drug (disorder) 09-21-20 14 [facility] (1 source) Sulfonamides (Antibiotic); Translations: [SULFA (SULFONAMIDE ANTIBIOTICS)] Propensity to adverse reactions to drug (disorder) 07-31-20 14 [facility] (1 source) ADHESIVE TAPE-SILICONES; Translations: [ADHESIVE TAPE-SILICONES] Propensity to adverse reactions to drug (disorder) 10-07-19 22 [facility] Medications Current Medications Medication Drug Class(es) [...] fibrillation] Onset: 4 02-26-2023 Chronic Cardiac dysrhythmias (2 sources) Palpitations; Translations: [Palpitations] Onset: 5 Episodic Disorders of lipid metabolism (3 sources) Other hyperlipidemia; Translations: [Hyperlipidemia] Onset: 2 [...] sources) History of pericarditis 02-26-2023 Episodic Other connective tissue disease (2 sources) Fibromyalgia; Translations: [Fibromyalgia] Onset: 5 Episodic Other endocrine disorders (2 sources) Polycystic [...] follow up Onset: 5 Unclassified (1 source) Supraventricular tachycardia, unspecified; Translations: [...] Date Episodic/Chronic Other aftercare (4 sources) Other longterm (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; Translations: [OTH VP PACKAGING CURRENT DRUG THERAPY] Onset: 08-25-2022 Episodic Other [...] Name Value Interpretation Reference Range Facility Follow-Upon 03-09-2025 Follow-Up [id number] Yamileth Hernandez 1970 F Date Provider Department Center 03/09/2025 [facility] Yamil Heal Family History Problem Relation Age of Onset Dementia Mother Diabetes Mother Other Mother 59 Coronary artery disease Mother Atrial fibrillation Father Coronary artery disease Father Stroke Father 56 Heart attack Father 62 Family Status - Relation Status Age at Mother Alive Father Alive Level of Service:38583 [place] OFFICE/OUTPATIENT ESTABLISHED MOD MDM 30 MIN () Reason for Visit and Comments: Systemic lupus erythematosus, unspecified SLE type, unspeci [Other] Follow-up [694279] Normal [facility] Office Visiton 12-13-2024 Follow-up visit [id number] Yamileth Hernandeznelson Madhuri 1970 Date Provider Department Center 12/13/2024 [id number] RENDON BRANDON Serratoue Jose R Family History Problem Relation Age of Onset Dementia Mother Diabetes Mother Other Mother 59 Coronary artery disease Mother Atrial fibrillation Father Coronary artery disease Father Stroke Father 56 Heart attack Father 62 Family Status - Relation Status Age at Mother Alive Father Alive Level of Service:26601 MA OFFICE/OUTPATIENT ESTABLISHED LOW MDM 20 MIN Reason for Visit and Comments: 6 month follow up [Other] Atrial Fibrillation [80] Hyperlipidemia [182] Fatigue [46] - Fatigue due to Lupus flare up Palpitations [861778] - Occasionally Recent labs 08/27 and 12/26 [Other] Normal [facility] IGP,APTIMA HPV,AGE GDLNon AGE GDLN ACOG TESTING Note . [facility] Comment on above: TESTS RESULT FLAG UN ITS REF RANGE LAB Clinician Provided Cytology Information Source.............Vagina No. of containers..01 ThinPrep Vial Age Algo ACOG Sona... 30-65 FLAG LEGEND: L-Low Normal,H-High Normal,LL-Alert Low,HH-Alert High <-Panic Low,>-Panic High,A-Abnormal,AA-Critical Abnormal Performed at: 01 =[address] [address] Jerrica Kam MD, HPV APTIMA Negative Negative [facility] Comment on above: This nucleic acid am plification test detects fourteen high- risk HPV types (16,18,31,33,35,39,45,51,52,56,58,59,66,68) without differentiation. Performed at: =[address] [id number] Paving Stone Installer: Jerrica Kam MD, Phone: [phone] Performed at: [address] [id number] Paving Stone Installer: Jerrica Kam MD, Phone: [phone] IGP, APTIMA HPV, RFX 16/18,45 Note . [facility] Comment on above: TESTS RESULT FLAG U NITS REF RANGE LAB DIAGNOSIS: 02 NEGATIVE FOR INTRAEPITHELIAL LESION OR MALIGNANCY. Specimen adequacy: 02 Satisfactory for evaluation. No endocervical cells are present. This is consistent with a history of hysterectomy. Performed by: Deborah Francis, Wood Tile Installation Helper (ASC) . 02 Note: Note 02 The Pap [...] High,A-Abnormal,AA-Critical Abnormal Performed at: 02 [facility] [address] [address] Jerrica Kam MD, [facility] Follow-Upon 10-19-2024 Follow-Up [id number] Yamileth Hernandez 1970 Provider Department Center 10/19/20[facility] Family History Problem Relation Age of Onset Dementia Mother Diabetes Mother Other Mother 59 Coronary artery disease Mother Atrial fibrillation Father Coronary artery disease Father Stroke Father 56 Heart attack Father 62 Family Status - Relation Status Age at Mother Alive Father Alive Level of Service:60015 MA OFFICE/OUTPATIENT ESTABLISHED MOD MDM 30 MIN () Reason for Visit and Comments: Follow-up [235202] - Extreme tiredness Normal [facility] Refillon 08-09-2024 Refill [id number] Yamileth Hernandez 1970 Date Provider Department Center 08/09/2024 [facility] Family History Problem Relation Age of Onset Dementia Mother Diabetes Mother Other Mother 59 Coronary artery disease Mother Atrial fibrillation Father Coronary artery disease Father Stroke Father 56 Heart attack Father 62 Family Status - Relation Status Age at Mother Alive Father Alive Reason for Visit and Comments: Med Refill [940697] - Patient called for refill: triamcinolone (Kenalog) 0.1 % oral paste use in mouth or throat if needed for mucositis/ methylPREDNISolone (Medrol) 4 mg tablet take 1 tablet by mouth in morning take 1/2 tablet by mouth everyday as needed. Please advise. Thanks! [facility] 36on 08-01-2024 36 Called and left deta teagand message for patient [facility] Refillon 08-01-2024 Refill [id number] Yamileth Hernandez 1970 F Date Provider Department Center 08/01/2024 [facility] Family History Problem Relation Age of Onset Dementia Mother Diabetes Mother Other Mother 59 Coronary artery disease Mother Atrial fibrillation Father Coronary artery disease Father Stroke Father 56 Heart attack Father 62 Family Status - Relation Status Age at Mother Alive Father Alive Reason for Visit and Comments: Med Refill [[id number]] [facility] Orders Onlyon 07-28-2024 Orders Only [id number] Yamileth Hernandez 1970 Date Provider Department Center 07/28/2024 [facility] Family History Problem Relation Age of Onset Dementia Mother Diabetes Mother Other Mother 59 Coronary artery disease Mother Atrial fibrillation Father Coronary artery disease Father Stroke Father 56 Heart attack Father 62 Family Status - Relation Status Age at Mother Alive Father Alive [facility] 36on 07-26-2024 36 Patient called jus gonzalez if you can put in an order for a DEXA scan for her. She stated that she needed a refill for medrol and triamcinolone. [facility] Telephoneon 07-26-2024 Telephone [id number] Yamileth Hernandez 1970 Date Provider Department Center 07/26/2024 [facility] Family History Problem Relation Age of Onset Dementia Mother Diabetes Mother Other Mother 59 Coronary artery disease Mother Atrial fibrillation Father Coronary artery disease Father Stroke Father 56 Heart attack Father 62 Family Status - Relation Status Age at Mother Alive Father Alive Reason for Visit and Comments: Request For Order(s) [706] [facility] Refillon 06-14-2024 Refill [id number] Yamileth Hernandez 1970 Provider Department Center 06/14/2024 [id number] HAYES [facility] Family History Problem Relation Age of Onset Dementia Mother Diabetes Mother Other Mother 59 Coronary artery disease Mother Atrial fibrillation Father Coronary artery disease Father Stroke Father 56 Heart attack Father 62 Family Status - Relation Status Age at Mother Alive Father Alive Reason for Visit and Comments: Med Refill [[id number]] [facility] Office Visiton 05-22-2024 Follow-up visit [id number] Yamileth Hernandez 1970 Provider Department Center 05/22/2024 [id number] ROLAND BRANDON [facility] Family History Problem Relation Age of Onset Dementia Mother Diabetes Mother Other Mother 59 Coronary artery disease Mother Atrial fibrillation Father Coronary artery disease Father Stroke Father 56 Heart attack Father 62 Family Status - Relation Status Age at Mother Alive Father Alive Level of Service:22715 MA OFFICE/OUTPATIENT ESTABLISHED LOW MDM 20 MIN Reason for Visit and Comments: Atrial Fibrillation [80] [facility] Follow-Upon 05-04-2024 Follow-Up [id number] Yamileth Hernandez 1970 Provider Department Center 05/04/2024 [facility] Family History Problem Relation Age of Onset Dementia Mother Diabetes Mother Other Mother 59 Coronary artery disease Mother Atrial fibrillation Father Coronary artery disease Father Stroke Father 56 Heart attack Father 62 Family Status - Relation Status Age at Mother Alive Father Alive Level of Service:28296 MA OFFICE/OUTPATIENT ESTABLISHED MOD MDM 30 MIN (GC) Reason for Visit and Comments: Follow-up [[id number]] [facility] Cytology Cervical or vaginal smear or scraping studyon 11-16-2023 [facility] Ambulatory Visit Summaryon 0 04-07-2023 Ambulatory Visit [...] lupus erythematosus Varicose veins of legs Normal [facility] General Surgery Office/Clini c Noteon 04-07-2023 [...] SARS-CoV-2 (COVID-19) mRNA-1273 vaccine 08/07/2022 Recorded SARSCoV2 mRNA(dhcegqsvi-bmpw-rehvlt) vac 01/01/2022 Recorded SARS-CoV-2 (COVID-19) mRNA-1273 vaccine 06/18/2021 Recorded 2023-02-26: TPV50 SARS-CoV-2 (COVID-19) mRNA-1273 vaccine 10/30/2020 Recorded SARS-CoV-2 (COVID-19) mRNA-1273 vaccine 10/02/[address] [facility] Comment on above: Result Comment: Elec tronically Signed By: RAUDEL PUENTES, Joselo Barrera\Date and Time Signed: 04/07/23 14:01 EDT Reminderson 04-02-2023 Reminders - From: Cristal Gordon LPN To: N - Clinical; Sent: 04/02/2023 11:03:11 EDT Show up: 02/21/2033 07:00:00 EDT Subject: colonoscopy recall Due Date/Time: 03/24/2033 07:00:00 EDT Reminder/Recall Patient due for screening colonoscopy 03/24/2033. [facility] Pathology Noteon 03-29-2023 Pathology Note [id number]#1.00CD:[address] [facility] Outside Colonoscopyon 2022 Outside Colonoscopy [id number]#1.00CD:[address] [facility] Pre-Certification Formon Pre-Certification Form [id number]#1.00CD:[address] [facility] Consent for Procedure/Surger yon 03-05-2023 Consent for Procedure/Surgery [id number]#1.00CD:[address] [facility] Facesheeton 03-04-2023 Facesheet [id number]#1.00CD:127 Normal [facility] Ambulatory Visit Summaryon 0 03-03-2023 Ambulatory [...] lupus erythematosus Varicose veins of legs Normal [facility] RAD - CT Reporton 03-03-2023 RAD - CT Report [id number]#1.00CD:127 Normal [facility] Physician Referralon 023 Physician Referral [id number]#1.00CD:[address] [facility] [address] ABD/PELV W CONon 02-13-20 23 [...] IDA SOTO Date: 2023-02-12 09:54 Normal [facility] QUANTIFERON TB GOLD PLUSon 0 02-07-2023 QuantiFERON Criteria Comment Normal [facility] Comment on above: Result Comment: Rehan [...] test. Performed By: #### Q NTTB #### [facility] [address] [place] [address] Dr. Jazmyn Saavedra QuantiFERON Incubation Incubation performed. Normal [facility] Comment on above: Performed By: #### Q NTTB #### [facility] [address] [place] [address] Dr. Jazmyn Saavedra QuantiFERON Mitogen Value 6.87 IU/mL Normal [facility] Comment on above: Performed By: #### Q NTTB #### [facility] [address] [place] [address] Dr. Jazmyn Saavedra QuantiFERON Nil Value 0.00 IU/mL Normal [facility] Comment on above: Performed By: #### Q NTTB #### [facility] [address] [place] [address] Dr. Jazmyn Saavedra QuantiFERON TB1 Ag Value 0.00 IU/mL Normal [facility] Comment on above: Performed By: #### Q NTTB #### [facility] [address] [place] [address] Dr. Jazmyn Saavedra QuantiFERON TB2 Ag Value 0.00 IU/mL Normal [facility] Comment on above: Performed By: #### Q NTTB #### [facility] [address] [place] [address] Dr. Jazmyn Saavedra QuantiFERON-TB Gold Plus Negative Normal Negative [facility] Comment on above: Result Comment: No r esponse to M tuberculosis antigens detected. Infection with M tuberculosis is unlikely, but high risk individuals should be considered for additional testing (ATS/IDSA/CDC Clinical Practice Guidelines, 2017). The reference range is an Antigen minus Nil result of <0.35 IU/mL. Chemiluminescence immunoassay methodology Performed By: #### Q NTTB #### [facility] [address] [place] [address] Dr. Jazmyn Saavedra HEP B COREon 02-06-2023 Hep B Core Ab, Tot Negative Normal Negative [facility] Comment on above: Performed By: #### S EDR #### [facility] [address] [place] [address] Dr. Jazmyn Saavedra HEP B SURFACE ANTIGEN SCREEN on 02-06-2023 HBsAg Screen Negative Normal Negative [facility] Comment on above: Performed By: #### H BSANS #### [facility] [address] [place] [address] Dr. Jazmyn Saavedra CBC AUTO DIFFon 02-05-2023 BASO # 0.0 103/ul Normal 0.0-0.1 [facility] Comment on above: Performed By: #### C BC #### [facility] [address] [place] [address] Dr. Jazmyn Saavedra Basophils/100 WBC (Bld) 0.5 % Normal 0.2-2.0 [facility] Comment on above: Performed By: #### C BC #### [facility] [address] [place] [address] Dr. Jazmyn Saavedra EO # 0.0 103/ul Normal 0.0-0.7 [facility] Comment on above: Performed By: #### C BC #### [facility] [address] [place] [address] Dr. Jazmyn Saavedra Eosinophils/100 WBC (Bld) 0.8 % Critically low 0.9-7.0 [facility] Comment on above: Performed By: #### C BC #### [facility] [address] [place] [address] Dr. Jazmyn Saavedra Erythrocyte distribution width (RBC) [Ratio] 13.2 % Normal 11.0-15.0 [facility] Comment on above: Performed By: #### C BC #### [facility] [address] [place] [address] Dr. Jazmyn Saavedra Hematocrit (Bld) [Volume fraction] 41.1 % Normal 36.0-48.0 [facility] Comment on above: Performed By: #### C BC #### [facility] [address] [place] [address] Dr. Jazmyn Saavedra Hemoglobin (Bld) [Mass/Vol] 13.4 g/dL Normal 12.0-16.0 [facility] Comment on above: Performed By: #### C BC #### [facility] [address] [place] [address] Dr. Jazmyn Saavedra IG # 0.01 10e3/ul Normal 0.00-0.03 [facility] Comment on above: Performed By: #### C BC #### [facility] [address] [place] [address] Dr. Jazmyn Saavedra IG % 0.3 % Normal 0.0-0.5 [facility] Comment on above: Performed By: #### C BC #### [facility] [address] [place] [address] Dr. Jazmyn Saavedra LYMPH # 1.2 103/ul Normal 1.2-3.8 [facility] Comment on above: Performed By: #### C BC #### [facility] [address] [place] [address] Dr. Jazmyn Saavedra Lymphocytes/100 WBC (Bld) 31.9 % Normal 20.5-60.0 [facility] Comment on above: Performed By: #### C BC #### [facility] [address] [place] [address] Dr. Jazmyn Saavedra MANUAL DIFF REQ NO Normal [facility] Comment on above: Performed By: #### C BC #### [facility] [address] [place] [address] Dr. Jazmyn Saavedra MCH (RBC) [Entitic mass] 30.6 pg Normal 26.7-34.0 [facility] Comment on above: Performed By: #### C BC #### [facility] [address] [place] [address] Dr. Jazmyn Saavedra MCHC (RBC) [Mass/Vol] 32.6 g/dL Normal 29.9-35.2 [facility] Comment on above: Performed By: #### C BC #### [facility] [address] [place] [address] Dr. Jazmyn Saavedra MCV (RBC) [Entitic vol] 93.8 fL Normal 81.0-99.0 [facility] Comment on above: Performed By: #### C BC #### [facility] [address] [place] [address] Dr. Jazmyn Saavedra MONO # 0.5 103/ul Normal 0.3-0.8 [facility] Comment on above: Performed By: #### C BC #### [facility] [address] [place] [address] Dr. Jazmyn Saavedra Monocytes/100 WBC (Bld) 14.1 % Critically high 1.7-12.0 [facility] Comment on above: Performed By: #### C BC #### [facility] [address] [place] [address] Dr. Jazmyn Saavedra NEUT # 1.9 103/ul Normal 1.4-6.5 [facility] Comment on above: Performed By: #### C BC #### [facility] [address] [place] [address] Dr. Jazmyn Saavedra Neutrophils/100 WBC (Bld) 52.4 % Normal 43.0-75.0 [facility] Comment on above: Performed By: #### C BC #### [facility] [address] [place] [address] Dr. Jazmyn Saavedra Platelet mean volume (Bld) [Entitic vol] 9.4 fL Critically low 9.5-13.5 [facility] Comment on above: Performed By: #### C BC #### [facility] [address] [place] [address] Dr. Jazmyn Saavedra PLT 342 103/ul Normal 150-450 [facility] Comment on above: Performed By: #### C BC #### [facility] [address] [place] [address] Dr. Jazmyn Saavedra RBC 4.38 106/ul Normal 4.20-5.40 [facility] Comment on above: Performed By: #### C BC #### [facility] [address] [place] [address] Dr. Jazmyn Saavedra WBC 3.7 103/ul Critically low 4.0-11.0 [facility] Comment on above: Performed By: #### C BC #### [facility] [address] [address] [address] Jazmyn Saavedra FREE THYROXINE INDEX T7on FTI 3.20 Normal 1.30-4.50 [facility] Comment on above: Performed By: #### S EDR #### [facility] [address] [place] [address] Dr. Jazmyn Saavedra T3U 36.0 % Normal 30.0-39.0 [facility] Comment on above: Performed By: #### S EDR #### [facility] [address] [place] [address] Dr. Jazmyn Saavedra T4 [Mass/Vol] 8.90 ug/dL Normal 4.80-13.90 [facility] Comment on above: Performed By: #### S EDR #### [facility] [address] [place] [address] Dr. Jazmyn Saavedra GLYCOHEMOGLOBIN A1Con 2022 ADA RECOMMENDATION SEE BELOW Normal [facility] Comment on above: Result Comment: ADA RECOMMENDED LIMIT 4.0 - 6.0 ADA THERAPEUTIC TARGET < 7.0 ACTION SUGGESTED > 7.0 Performed By: #### S EDR #### [facility] [address] [place] [address] Dr. Jazmyn Saavedra Glucose [Mass/Vol] 123 mg/dL Normal [facility] Comment on above: Performed By: #### S EDR #### [facility] [address] [place] [address] Dr. Jazmyn Saavedra HbA1c (Bld) [Mass fraction] 5.9 % Normal 4.5-6.2 [facility] Comment on above: Performed By: #### S EDR #### [facility] [address] [address] [address] Jazmyn Saavedra LIPID PROFILEon 02-05-2023 CHOL-HDL RATIO NORM SEE BELOW Normal [facility] Comment on above: Result Comment: 3.3 - 4.4 LOW RISK 4.4 - 7.1 AVERAGE RISK 7.1 - 11.0 MODERATE RISK >11.0 HIGH RISK Performed By: #### S EDR #### [facility] [address] [address] [address] Jazmyn Saavedra Cholesterol [Mass/Vol] 256 mg/dL Critically high <=200 [facility] Comment on above: Performed By: #### S EDR #### [facility] [address] [address] [address] Jazmyn Saavedra Cholesterol in HDL [Mass/Vol] 108 mg/dL Critically high 40-60 [facility] Comment on above: Performed By: #### S EDR #### [facility] [address] [address] [address] Jazmyn Saavedra Cholesterol in LDL [Mass/Vol] 139.4 mg/dL Normal [facility] Comment on above: Performed By: #### S EDR #### [facility] [address] [address] [address] Jazmyn Saavedra Cholesterol.total/ Cholesterol in HDL [Mass ratio] 2.4 {ratio} Normal [facility] Comment on above: Performed By: #### S EDR #### [facility] [address] [id number] Jazmyn Saavedra HDL NORMAL > or = 60 mg/dl - LO W CARDIOVASCULAR RISK <40 mg/dl - HIGH CARDIOVASCULAR RISK Normal [facility] Comment on above: Performed By: #### S EDR #### [facility] [address] [id number] Jazmyn Saavedra LDL CALC NORMAL SEE BELOW Normal [facility] Comment on above: Result Comment: <100 mg/dl OPTIMAL 100 - 129 mg/dl NEAR OR ABOVE OPTIMAL 130 - 159 mg/dl BORDERLINE HIGH 160 - 189 mg/dl HIGH >190 mg/dl VERY HIGH Performed By: #### S EDR #### [facility] [address] [address] [address] Jazmyn Saavedra Triglyceride [Mass/Vol] 43 mg/dL Normal <=150 [facility] Comment on above: Performed By: #### S EDR #### [facility] [address] [address] [address] Jazmyn Saavedra VLDL CALC 8.6 mg/dL Normal [facility] Comment on above: Performed By: #### S EDR #### [facility] [address] [address] [address] Jazmyn Saavedra PROF 14(COMP METB)on 023 Albumin [Mass/Vol] 4.0 g/dL Normal 3.4-5.0 [facility] Comment on above: Performed By: #### T 7, CMP, LIPID, TSH #### [facility] [address] [place] [address] Dr. Jazmyn Saavedra Albumin/Globulin [Mass ratio] 0.9 {ratio} Normal [facility] Comment on above: Performed By: #### T 7, CMP, LIPID, TSH #### [facility] [address] [place] [address] Dr. Jazmyn Saavedra ALP [Catalytic activity/Vol] 57 U/L Normal 46-116 [facility] Comment on above: Performed By: #### T 7, CMP, LIPID, TSH #### [facility] [address] [place] [address] Dr. Jazmyn Saavedra ALT [Catalytic activity/Vol] 23 U/L Normal 14-59 [facility] Comment on above: Performed By: #### T 7, CMP, LIPID, TSH #### [facility] [address] [place] [address] Dr. Jazmyn Saavedra Anion gap [Moles/Vol] 13.8 mmol/L Normal [facility] Comment on above: Performed By: #### T 7, CMP, LIPID, TSH #### [facility] [address] [place] [address] Dr. Jazmyn Saavedra AST [Catalytic activity/Vol] 23 U/L Normal 15-37 [facility] Comment on above: Performed By: #### T 7, CMP, LIPID, TSH #### [facility] [address] [address] [address] Jazmyn Saavedra Bilirubin [Mass/Vol] 0.6 mg/dL Normal 0.2-1.0 [facility] Comment on above: Performed By: #### T 7, CMP, LIPID, TSH #### [facility] [address] [place] [address] Dr. Jazmyn Saavedra Calcium [Mass/Vol] 9.6 mg/dL Normal 8.5-10.1 [facility] Comment on above: Performed By: #### T 7, CMP, LIPID, TSH #### [facility] [address] [place] [address] Dr. Jazmyn Saavedra Chloride [Moles/Vol] 100 mmol/L Normal 98-107 [facility] Comment on above: Performed By: #### T 7, CMP, LIPID, TSH #### [facility] [address] [place] [address] Dr. Jazmyn Saavedra CO2 [Moles/Vol] 29.9 mmol/L Normal 21.0-32.0 [facility] Comment on above: Performed By: #### T 7, CMP, LIPID, TSH #### [facility] [address] [place] [address] Dr. Jazmyn Saavedra Creatinine [Mass/Vol] 0.89 mg/dL Normal 0.55-1.02 [facility] Comment on above: Performed By: #### T 7, CMP, LIPID, TSH #### [facility] [address] [place] [address] Dr. Jazmyn Saavedra EGFR-AF AUSTRALIAN >60 Normal >=60 [facility] Comment on above: Performed By: #### T 7, CMP, LIPID, TSH #### [facility] [address] [place] [address] Dr. Jazmyn Saavedra EGFR-NON AF AUSTRALIAN >60 Normal >=60 [facility] Comment on above: Performed By: #### T 7, CMP, LIPID, TSH #### [facility] [address] [place] [address] Dr. Jazmyn Saavedra Globulin (S) [Mass/Vol] 4.4 g/dL Normal [facility] Comment on above: Performed By: #### T 7, CMP, LIPID, TSH #### [facility] [address] [address] [address] Jazmyn Saavedra Glucose [Mass/Vol] 89 mg/dL Normal 74-106 [facility] Comment on above: Performed By: #### T 7, CMP, LIPID, TSH #### [facility] [address] [address] [address] Jazmyn Saavedra Potassium [Moles/Vol] 3.7 mmol/L Normal 3.5-5.1 [facility] Comment on above: Performed By: #### T 7, CMP, LIPID, TSH #### [facility] [address] [place] [address] Dr. Jazmyn Saavedra Protein [Mass/Vol] 8.4 g/dL Critically high 6.4-8.2 [facility] Comment on above: Performed By: #### T 7, CMP, LIPID, TSH #### [facility] [address] [place] [address] Dr. Jazmyn Saavedra Sodium [Moles/Vol] 140 mmol/L Normal 136-145 [facility] Comment on above: Performed By: #### T 7, CMP, LIPID, TSH #### [facility] [address] [place] [address] Dr. Jazmyn Saavedra Urea nitrogen [Mass/Vol] 17.0 mg/dL Normal 7.0-18.0 [facility] Comment on above: Performed By: #### T 7, CMP, LIPID, TSH #### [facility] [address] [place] [address] Dr. Jazmyn Saavedra Urea nitrogen/Creatinin e [Mass ratio] 19.1 mg/mg Normal [facility] Comment on above: Performed By: #### T 7, CMP, LIPID, TSH #### [facility] [address] [place] [address] Dr. Jazmyn Saavedra TSHon 02-05-2023 TSH 0.984 uIU/mL Normal 0.358-3.740 [facility] Comment on above: Performed By: #### S EDR #### [facility] [address] [address] [address] Jazmyn Saavedra PAP ACOG PANEL 2: 30 to 65on 10-07-2022 . . Normal [facility] Comment on above: Result Comment: Perf ormed at: [facility] Performed By: #### S EDR #### [facility] [address] [address] [address] Jazmyn Saavedra Age Gdln ACOG Testing 30-65 Normal [facility] Comment on above: Performed By: #### S EDR #### [facility] [address] [address] [address] Jazmyn Saavedra DIAGNOSIS: Comment Normal [facility] Comment on above: Result Comment: NEGA TIVE FOR INTRAEPITHELIAL LESION OR MALIGNANCY. Performed at: [facility] Performed By: #### S EDR #### [facility] [address] [place] [address] Dr. Jazmyn Saavedra HPV Aptima Negative Normal Negative [facility] Comment on above: Result Comment: This nucleic acid amplification test detects fourteen high-risk HPV types (16,18,31,33,35,39,45,51,52,56,58,59,66,68) without differentiation. Performed at: =G Performed By: #### S EDR #### [facility] [address] [address] [address] Jazmyn Saavedra HPV Genotype Reflex Comment Normal [facility] Comment on above: Result Comment: Crit eria not met, HPV Genotype not performed. Performed at: [facility] Performed By: #### S EDR #### [facility] [address] [address] [address] Jazmyn Saavedra Methodology: Comment Normal [facility] Comment on above: Result Comment: This liquid based ThinPrep(R) pap test was screened with the use of an image guided system. Performed at: [facility] Performed By: #### S EDR #### [facility] [address] [place] [address] Dr. Jazmyn Saavedra Note: Comment Normal [facility] Comment on above: Result Comment: The [...] WB Performed By: #### S EDR #### [facility] [address] [place] [address] Dr. Jazmyn Saavedra Performed by: Comment Normal [facility] Comment on above: Result Comment: Daryl Calhoun, [employer] Installation [employer] (ASCP) Performed at: [facility] Performed By: #### S EDR #### [facility] [address] [place] [address] Dr. Jazmyn Saavedra Specimen adequacy: Comment Normal [facility] Comment on above: Result Comment: Sati sfactory for evaluation. Endocervical component may not be distinguished in cases of atrophy. Performed at: [facility] Performed By: #### S EDR #### [facility] [address] [place] [address] Dr. Jazmyn Saavedra XR DEXA BONE DENSITYon [...] by: GILBERT GEORGE Date: 2022-08-28 08:47 Normal [facility] CBC AUTO DIFFon 08-25-2022 BASO # 0.0 103/ul Normal 0.0-0.1 [facility] Comment on above: Performed By: #### S EDR #### [facility] [address] [address] [address] Jazmyn Saavedra Basophils/100 WBC (Bld) 0.5 % Normal 0.2-2.0 [facility] Comment on above: Performed By: #### S EDR #### [facility] [address] [address] [address] Jazmyn Saavedra EO # 0.1 103/ul Normal 0.0-0.7 [facility] Comment on above: Performed By: #### S EDR #### [facility] [address] [place] [address] Dr. Jazmyn Saavedra Eosinophils/100 WBC (Bld) 1.2 % Normal 0.9-7.0 [facility] Comment on above: Performed By: #### S EDR #### [facility] [address] [place] [address] Dr. Jazmyn Saavedra Erythrocyte distribution width (RBC) [Ratio] 13.2 % Normal 11.0-15.0 [facility] Comment on above: Performed By: #### S EDR #### [facility] [address] [place] [address] Dr. Jazmyn Saavedra Hematocrit (Bld) [Volume fraction] 38.4 % Normal 36.0-48.0 [facility] Comment on above: Performed By: #### S EDR #### [facility] [address] [place] [address] Dr. Jazmyn Saavedra Hemoglobin (Bld) [Mass/Vol] 12.6 g/dL Normal 12.0-16.0 [facility] Comment on above: Performed By: #### S EDR #### [facility] [address] [place] [address] Dr. Jazmyn Saavedra IG # 0.01 10e3/ul Normal 0.00-0.03 [facility] Comment on above: Performed By: #### S EDR #### [facility] [address] [place] [address] Dr. Jazmyn Saavedra IG % 0.2 % Normal 0.0-0.5 [facility] Comment on above: Performed By: #### S EDR #### [facility] [address] [address] [address] Jazmyn Saavedra LYMPH # 1.7 103/ul Normal 1.2-3.8 [facility] Comment on above: Performed By: #### S EDR #### [facility] [address] [address] [address] Jazmyn Saavedra Lymphocytes/100 WBC (Bld) 40.8 % Normal 20.5-60.0 [facility] Comment on above: Performed By: #### S EDR #### [facility] [address] [address] [address] Jazmyn Saavedra MANUAL DIFF REQ NO Normal [facility] Comment on above: Performed By: #### S EDR #### [facility] [address] [place] [address] Dr. Jazmyn Saavedra MCH (RBC) [Entitic mass] 31.0 pg Normal 26.7-34.0 [facility] Comment on above: Performed By: #### S EDR #### [facility] [address] [address] [address] Jazmyn Saavedra MCHC (RBC) [Mass/Vol] 32.8 g/dL Normal 29.9-35.2 [facility] Comment on above: Performed By: #### S EDR #### [facility] [address] [place] [address] Dr. Jazmyn Saavedra MCV (RBC) [Entitic vol] 94.3 fL Normal 81.0-99.0 [facility] Comment on above: Performed By: #### S EDR #### [facility] [address] [address] [address] Jazmyn Saavedra MONO # 0.5 103/ul Normal 0.3-0.8 [facility] Comment on above: Performed By: #### S EDR #### [facility] [address] [place] [address] Dr. Jazmyn Saavedra Monocytes/100 WBC (Bld) 11.9 % Normal 1.7-12.0 [facility] Comment on above: Performed By: #### S EDR #### [facility] [address] [address] [address] Jazmyn Saavedra NEUT # 1.9 103/ul Normal 1.4-6.5 [facility] Comment on above: Performed By: #### S EDR #### [facility] [address] [address] [address] Jazmyn Saavedra Neutrophils/100 WBC (Bld) 45.4 % Normal 43.0-75.0 [facility] Comment on above: Performed By: #### S EDR #### [facility] [address] [address] [address] Jazmyn Saavedra Platelet mean volume (Bld) [Entitic vol] 9.3 fL Critically low 9.5-13.5 [facility] Comment on above: Performed By: #### S EDR #### [facility] [address] [address] [address] Jazmyn Saavedra PLT 309 103/ul Normal 150-450 [facility] Comment on above: Performed By: #### S EDR #### [facility] [address] [address] [address] Jazmyn Saavedra RBC 4.07 106/ul Critically low 4.20-5.40 [facility] Comment on above: Performed By: #### S EDR #### [facility] [address] [address] [address] Jazmyn Saavedra WBC 4.2 103/ul Normal 4.0-11.0 [facility] Comment on above: Performed By: #### S EDR #### [facility] [address] [address] [address] Jazmyn Saavedra CRPon 08-25-2022 CRP [Mass/Vol] mg/L Normal <=1.0 [facility] Comment on above: Performed By: #### C RP, CMP, LIPID #### [facility] [address] [address] [address] Jazmyn Saavedra LIPID PROFILEon 08-25-2022 CHOL-HDL RATIO NORM SEE BELOW Normal [facility] Comment on above: Result Comment: 3.3 - 4.4 LOW RISK 4.4 - 7.1 AVERAGE RISK 7.1 - 11.0 MODERATE RISK >11.0 HIGH RISK Performed By: #### C RP, CMP, LIPID #### [facility] [address] [address] [address] Jazmyn Saavedra Cholesterol [Mass/Vol] 251 mg/dL Critically high <=200 [facility] Comment on above: Performed By: #### C RP, CMP, LIPID #### [facility] [address] [address] [address] Jazmyn Saavedra Cholesterol in HDL [Mass/Vol] 102 mg/dL Critically high 40-60 [facility] Comment on above: Performed By: #### C RP, CMP, LIPID #### [facility] [address] [address] [address] Jazmyn Saavedra Cholesterol in LDL [Mass/Vol] 135.0 mg/dL Normal [facility] Comment on above: Performed By: #### C RP, CMP, LIPID #### [facility] [address] [address] [address] Jazmyn Saavedra Cholesterol.total/ Cholesterol in HDL [Mass ratio] 2.5 {ratio} Normal [facility] Comment on above: Performed By: #### C RP, CMP, LIPID #### [facility] [address] [address] [address] Jazmyn Saavedra HDL NORMAL > or = 60 mg/dl - LO W CARDIOVASCULAR RISK <40 mg/dl - HIGH CARDIOVASCULAR RISK Normal [facility] Comment on above: Performed By: #### C RP, CMP, LIPID #### [facility] [address] [place] [address] Dr. Jazmyn Saavedra LDL CALC NORMAL SEE BELOW Normal [facility] Comment on above: Result Comment: <100 mg/dl OPTIMAL 100 - 129 mg/dl NEAR OR ABOVE OPTIMAL 130 - 159 mg/dl BORDERLINE HIGH 160 - 189 mg/dl HIGH >190 mg/dl VERY HIGH Performed By: #### C RP, CMP, LIPID #### [facility] [address] [address] [address] Jazmyn Saavedra Triglyceride [Mass/Vol] 70 mg/dL Normal <=150 [facility] Comment on above: Performed By: #### C RP, CMP, LIPID #### [facility] [address] [address] [address] Jazmyn Saavedra VLDL CALC 14.0 mg/dL Normal [facility] Comment on above: Performed By: #### C RP, CMP, LIPID #### [facility] [address] [address] [address] Jazmyn Saavedra PROF 14(COMP METB)on 022 Albumin [Mass/Vol] 3.9 g/dL Normal 3.4-5.0 [facility] Comment on above: Performed By: #### C RP, CMP, LIPID #### [facility] [address] [place] [address] Dr. Jazmyn Saavedra Albumin/Globulin [Mass ratio] 1.0 {ratio} Normal [facility] Comment on above: Performed By: #### C RP, CMP, LIPID #### [facility] [address] [place] [address] Dr. Jazmyn Saavedra ALP [Catalytic activity/Vol] 49 U/L Normal 46-116 [facility] Comment on above: Performed By: #### C RP, CMP, LIPID #### [facility] [address] [place] [address] Dr. Jazmyn Saavedra ALT [Catalytic activity/Vol] 17 U/L Normal 14-59 [facility] Comment on above: Performed By: #### C RP, CMP, LIPID #### [facility] [address] [place] [address] Dr. Jazmny Saavedra Anion gap [Moles/Vol] 10.1 mmol/L Normal [facility] Comment on above: Performed By: #### C RP, CMP, LIPID #### [facility] [address] [place] [address] Dr. Jazmyn Saavedra AST [Catalytic activity/Vol] 19 U/L Normal 15-37 [facility] Comment on above: Performed By: #### C RP, CMP, LIPID #### [facility] [address] [place] [address] Dr. Jazmyn Saavedra Bilirubin [Mass/Vol] 0.5 mg/dL Normal 0.2-1.0 [facility] Comment on above: Performed By: #### C RP, CMP, LIPID #### [facility] [address] [place] [address] Dr. Jazmyn Saavedra Calcium [Mass/Vol] 9.3 mg/dL Normal 8.5-10.1 [facility] Comment on above: Performed By: #### C RP, CMP, LIPID #### [facility] [address] [place] [address] Dr. Jazmyn Saavedra Chloride [Moles/Vol] 103 mmol/L Normal 98-107 [facility] Comment on above: Performed By: #### C RP, CMP, LIPID #### [facility] [address] [place] [address] Dr. Jazmyn Saavedra CO2 [Moles/Vol] 30.1 mmol/L Normal 21.0-32.0 [facility] Comment on above: Performed By: #### C RP, CMP, LIPID #### [facility] [address] [place] [address] Dr. Jazmyn Saavedra Creatinine [Mass/Vol] 0.80 mg/dL Normal 0.55-1.02 [facility] Comment on above: Performed By: #### C RP, CMP, LIPID #### [facility] [address] [place] [address] Dr. Jazmyn Saavedra EGFR-AF AUSTRALIAN >60 Normal >=60 [facility] Comment on above: Performed By: #### C RP, CMP, LIPID #### [facility] [address] [place] [address] Dr. Jazmyn Saavedra EGFR-NON AF AUSTRALIAN >60 Normal >=60 [facility] Comment on above: Performed By: #### C RP, CMP, LIPID #### [facility] [address] [place] [address] Dr. Jazmyn Saavedra Globulin (S) [Mass/Vol] 4.1 g/dL Normal [facility] Comment on above: Performed By: #### C RP, CMP, LIPID #### [facility] [address] [place] [address] Dr. Jazmyn Saavedra Glucose [Mass/Vol] 92 mg/dL Normal 74-106 [facility] Comment on above: Performed By: #### C RP, CMP, LIPID #### [facility] [address] [address] [address] Jazmyn Saavedra Potassium [Moles/Vol] 4.2 mmol/L Normal 3.5-5.1 [facility] Comment on above: Performed By: #### C RP, CMP, LIPID #### [facility] [address] [address] [address] Jazmyn Saavedra Protein [Mass/Vol] 8.0 g/dL Normal 6.4-8.2 [facility] Comment on above: Performed By: #### C RP, CMP, LIPID #### [facility] [address] [place] [address] Dr. Jazmyn Saavedar Sodium [Moles/Vol] 139 mmol/L Normal 136-145 [facility] Comment on above: Performed By: #### C RP, CMP, LIPID #### [facility] [address] [place] [address] Dr. Jazmyn Saavedra Urea nitrogen [Mass/Vol] 20.0 mg/dL Critically high 7.0-18.0 [facility] Comment on above: Performed By: #### C RP, CMP, LIPID #### [facility] [address] [place] [address] Dr. Jazmyn Saavedra Urea nitrogen/Creatinin e [Mass ratio] 25.0 mg/mg Normal [facility] Comment on above: Performed By: #### C RP, CMP, LIPID #### [facility] [address] [place] [address] Dr. Jazmyn Saavedra SED RATE [facility] 2021 SED RATE 47 mm/hr Critically high <=30 [facility] Comment on above: Performed By: #### S EDR #### [facility] [address] [place] [address] Dr. Jazmyn Saavedra ASYMPTOMATIC COVID-19 ANTIGE Non 05-18-2022 EUA Statement SEE BELOW Normal [facility] Comment on above: Result Comment: This [...] sooner. Performed By: #### S EDR #### [facility] [address] [place] [address] Dr. Jazmyn Saavedra SARS-CoV-2 (COVID-19) RNA NILES+probe Ql (Unsp spec) Positive Critically abnormal NEGATIVE [facility] Comment on above: Result Comment: SARS -CoV-2 antigen present; does not rule out coinfection with other pathogens. Performed By: #### S EDR #### [facility] [address] [address] [address] Jazmyn Saavedra Covid-19 PCR ([facility])on SARS-CoV-2 (COVID-19) RNA NILES+probe Ql (Unsp spec) Detected Critically abnormal NOT DETECTED [facility] Comment on above: Result Comment: This test is not yet approved or cleared by the [place] FDA. When there are no FDA-approved or cleared tests available, and other criteria are met, FDA can make tests available under an emergency access mechanism called an Emergency Use Authorization (EUA). The EUA for this test is supported by the [place] of Health and Human Service's declaration that [...] used). Performed By: #### C VDTBH #### [facility] [address] [place], [place] [address] Dr. Jazmyn BARLOW MULTI-CANCER PANELon 02-12-2021 RESULT Results to be mailed directly to physician's office by reference lab. Normal [facility] Comment on above: Result Comment: Test performed by [facility] [address] [place] [address] [phone] No result expected. For billing and tracking purposes only. Performed By: #### 3 [id number] #### [facility] [address] Vital Signs Date Time Vital Sign Value Performing Clinician Facility 11-23-2024 09:55-0500 Body mass index (BMI) [Ratio] 25.63 kg/m2 Easton Jassi DO Work Phone: [facility] 11-23-2024 09:55-0500 Body weight 69.85 kg Easton Jassi DO Work Phone: [facility] 11-23-2024 09:55-0500 Diastolic blood pressure 72 mm[Hg] Easton Jassi DO Work Phone: [facility] 11-23-2024 09:55-0500 Systolic blood pressure 124 mm[Hg] Easton Jassi DO Work Phone: [facility] 11-16-2023 11:39-0500 Body mass index (BMI) [Ratio] 24.96 kg/m2 Easton Jassi DO Work Phone: [facility] 11-16-2023 11:39-0500 Body weight 68.04 kg Easton Jassi DO Work Phone: [facility] 11-16-2023 11:39-0500 Diastolic blood pressure 72 mm[Hg] Easton Jassi DO Work Phone: [facility] 11-16-2023 11:39-0500 Systolic blood pressure 118 mm[Hg] Easton Jassi DO Work Phone: [facility] 03-03-2023 14:35-0400 Blood Pressure Location [facility] [place] 03-03-2023 14:35-0400 Diastolic blood pressure 68 mm[Hg] Joselo ST[facility] [place] 03-03-2023 14:35-0400 Heart rate 68 /min Jos[facility] ST[facility] [place] 03-03-2023 14:35-0400 Respiratory rate 16 /min Joselo ST[facility] [place] 03-03-2023 14:35-0400 Systolic blood pressure 114 mm[Hg] Joselo STAR[facility] [place] Encounters Encounter Date Encounter Type Care Provider Facility Start: 03-09-2025 End: 03[facility]09[facility] Start: 11-23-2024 End: 11-23-2024 Bamboo flowsheet [...] for osteoporosis Start: 10-19-2024 End: 10-19-2024 ambulatory TOMAS [facility] Start: 05-22-2024 End: 05-22-2024 ambulatory TODD RENDON [facility] Start: 05-04-2024 End: 05-04-2024 ambulatory TOMAS [facility] Start: 11-16-2023 End: 11-16-2023 Postop follow up visit related to original px Easton Keene DO Work Phone: [facility] Comment on above: Encounter for repeat Pap smear due to previous insuff cervical cells Start: 04-07-2023 End: 04-08-2023 ambulatory Joselo STARKS Facility:[facility] Start: 04-07-2023 End: 04-07-2023 Patient encounter procedure Joselo STARKS General Surgery Nill/Said Captual Start: 03-24-2023 End: 03-25-2023 ambulatory Joselo R NILL Facility:[id number] Start: 03-03-2023 End: 03-04-2023 ambulatory Mariza Matty Facility:[facility] Start: 03-03-2023 End: 03-03-2023 Patient encounter procedure Joselo R NILL General Surgery Nill/Said Arvind Start: 02-18-2023 ambulatory Mariza Hoy Facility:[facility] Start: 02-12-2023 Encounter for genera l adult medical examination without abnormal findings MARIZA HOY [facility] Start: 02-12-2023 End: 02-13-2023 ambulatory MARIZA [...] Performing Clinician Start: 11-23-2024 IGP,APTIMA HPV,AGE GDLN [facility] Work Phone: Start: 11-16-2023 Microscopic observation [Identifier] in Cervix by Cyto stain [facility] Work Phone: Start: 11-16-2023 Cytp cerv/vag auto thin layer prep mnl screen [facility] Work Phone: Start: 03-24-2023 Colonoscopy [facility] Work Phone: Start: 03-24-2023 Colonoscopy Joselo SCANLONL Start: 03-24-2023 Esophagogastroduodenoscopy Joselo NILL Start: 09-23-2022 Microscopic observation [Identifier] in Cervix by Cyto stain [employer] Work Phone: Start: 07-24-2015 Colonoscopy Joselo NILL Start: 02-01-2007 Colonoscopy Joselo NILL Bilateral mastectomy Joselo SCANLONL Biopsy of breast Joselo SCANLON L section [...] 03-24-2033 Screening for malignant neoplasm of colon [facility] Start: 11-16-2028 Screening for malignant neoplasm of cervix [facility] Start: 09-23-2027 Screening for malignant neoplasm of cervix [facility] Start: 11-28-2025 End: 11-28-2025 Patient encounter procedure 11/28/2025 1:00 PM EST Office Visit [facility] [address] [place] [id number] Easton Keene, [address] [place], [place] [address] [facility] Start: 01-27-2025 Screening for malignant neoplasm of colon FIT-DNA [facility] Start: 11-20-2024 End: 11-20-2024 Patient encounter procedure 11/20/2024 4:00 PM EST Office Visit [facility] [address] [place] [id number] Easton Keene, DO [address], [place] [address] [facility] Start: 06-04-2023 Influenza vaccination Influenza Vacc ine (#1) [facility] Start: 2008 Screening for malignant neoplasm of breast Mammogram [facility] Start: 1968 Screening for malignant neoplasm of colon [facility] THIN PREP TIS PAP AN D HR HPV DNA THIN PREP TIS PAP AND HR HPV DNA Pathology and Cytology Routine Well woman exam with routine gynecological exam Ordered: 11/23/2024 [facility] Work Phone: Comment on above: Ordered: 11/23/2024 Immunizations Immunization Date Immunization Notes Care Provider Fa cility 08-07-2022 SARS-CoV-2 (COVID-19 ) mRNA-1273 vaccine Joselo SCANLONL [facility] 01-01-2022 SARS-CoV-2 mRNA (ipzugegmirn-tsfo-hzbvg se) vaccine Joselo SCANLONL [facility] 06-18-2021 SARS-CoV-2 (COVID-19 ) mRNA-1273 vaccine Joselo SCANLONL [facility] Comment on above: Result Comment: 2022: [id number] 10-30-2020 SARS-CoV-2 (COVID-19 ) mRNA-1273 vaccine Joselo SCANLONL [facility] 10-02-2020 SARS-CoV-2 (COVID-19 ) mRNA-1273 vaccine Joselo SCANLONL [facility] Payers Date Payer Category Payer [facility] Shield BCBS [id number] 2022 Unknown BCBS BCBS [id number] 2022-Present [phone] [address] [place] [address] [id number] 2022 Unknown [id number] 2019 Unknown [id number] 1968 Unknown [id number] 2.16.840.1.453512.3.579.2. 593 1968 Unknown [id number] 2.16.840.1.419317.3.579.2. 593 1968 Unknown [id number] 2.16.840.1.258858.3.579.2. 593 1968 Unknown [id number] 2.16.840.1.937831.3.579.2. 593 1968 Unknown [id number] 2.16.840.1.430719.3.579.2. 593 1968 Unknown [id number] 2.16.840.1.064984.3.579.2. 593 1968 Unknown [id number] 2.16.840.1.623653.3.579.2. 593 1968 Unknown [id number] 2.16.840.1.742848.3.579.2. 593 1968 Unknown [id number] 2.16.840.1.572868.3.579.2. 593 1968 Unknown [id number] 2.16.840.1.741977.3.579.2. 727 1968 Unknown [id number] 2.16.840.1.353385.3.579.2. 727 1968 Unknown [id number] 2.16.840.1.768639.3.579.2. 727 1968 Unknown [id number] 2.16.840.1.113979.3.579.2. 1259 1959 Self-pay [id number] Unknown [id number] 2.16.840.1.877815.3.579.2. 593 Social History Date Type Detail Facility Start: 03-03-2023 End: 09-24-2023 Tobacco smoking status Never smoked tobacco (finding) [facility] [place] Tobacco smoking status Never [facility] [place] Start: 09-24-2023 End: 11-23-2024 Sex Assigned At Female Tahir Garrett [facility] Start: 10-28-2023 End: 11-23-2024 Alcohol intake [...] Sex Assigned At Not on file [facility] Start: 09-27-2023 Gender identity Identifies as female gender (finding) [facility] Functional Status Date Assessment Result Facility 03-03-2023 Functional Status N/A [facility] Clinical Notes 02-04-2023 to 03-09-2025 Vibha Jordan LPN - 11/23/2024 9:30 AM Sudhakar Keene DO - 11/16/2023 11:20 AM EST Note Date & Type Note Facility 03-09-2025 Note Attestation signed by Tomas Clinton MD at 03/09/2025 8:17 PM GC: I saw this patient. I personally performed the critical/rosales portions that determines the level of service. I was directly involved in the management and treatment plan of the patient. I reviewed note and agree with the documentation Subjective Patient ID: Teetee Hernandez is a 55 y.o. female who presents for follow up visit. HPI Current meds: Xeljanz, Plaquenil 300 mg daily She reports overwhelming fatigue. She reports more aches and pains Recent MCP swelling 2 weeks ago, continues to be swollen in bilateral hands, 2nd and 3rd MCPs. Reports brain fog. She feels like she sleeps fine. Normally she falls asleep easily. She feels tired when she wakes up. She reports her morning stiffness is lasting longer. Review of Systems Constitutional: Positive for fatigue. [...] for light-headedness and headaches. Objective Visit Vitals BP 101/61 (BP Location: Right arm, Patient Position: Sitting, BP Cuff Size: Adult) Pulse 70 Physical Exam Constitutional: Appearance: Normal appearance. HENT: Head: Normocephalic and atraumatic. Mouth/Throat: Mouth: Mucous membranes are moist. Cardiovascular: Rate and Rhythm: Normal rate and regular rhythm. Heart sounds: Normal heart sounds. Pulmonary: Effort: Pulmonary effort is normal. Musculoskeletal: General: Swelling (Bilateral 2nd and 3rd MCP swelling and tenderness) and tenderness present. Normal range of motion. Neurological: General: No focal deficit present. Mental Status: She is alert and oriented to person, place, and time. Assessment/Plan 55 y.o. F with seropsositive (+RF) Rheupus (controlled with Xeljanz) presented today for follow up. 1. Rheupus (+RF, synovitis), with recent flare - She has combination of SLE and [...] of 10/28, patient says she did in [place] on 08/27 and will arrange to get these to us - Agree with exercises to help with fatigue - Handjose luis lawson given on 10/19/24 Plan: - Continue Plaquenil 300 mg daily, Xeljanz-provided samples today 03/09/2025 - Reviewed most recent CBC and CMP in December 2024 - Patient reports anxiety and stress over fatigue, brain fog and pain presenting a tough challenge for her current full-time work. She reports that her job at this time will not allow reduced hours. She is seriously considering possibly applying for disability given her significant history of inflammatory arthritis, autoimmune connective tissue disease and fibromyalgia 2. SLE - Based in oral ulcers, [...] this medication, will refill on 05/04/24 - Will order lupus activity labs to be done before next appointment 3. Secondary Sjogren's syndrome. - + SSA [...] discuss with ophthalmology if she is candidate f (more content not included)... [facility] 12-13-2024 Note [facility] Note Reason [...] post ablation about 20 years ago at [facility]. History of pericarditis remotely. She has history of lupus/rheumatoid arthritis, hypothyroidism, and GERD. She presented to [facility] ED 02/05/2024 for palpitations and [...] normal sinus rhythm. As mentioned above Dr. Bren/cardiology on-call was consulted over the phone he did not advise anticoagulation due to low [id number] score of 1. Few weeks ago she [...] levothyroxine (Synthroid, Levoxyl (more content not included)... [facility] 11-23-2024 History of Present illness Narrative Reason [...] nursing note reviewed. Exam conducted with a size roller operator present. Vitals: Estimated body mass index [...] Easton Keene DO documented in this encounter [facility] 10-19-2024 Note Attestation signed by Tomas Clinton [...] of 10/28, patient says she did in [place] on 08/27 and will arrange to get [...] months Seen by Dr Clinton and Dr Hayes [facility] 05-22-2024 Note [place] [facility] Note Reason for cardiology [...] post ablation about 20 years ago at [facility]. History of pericarditis remotely. She has history of lupus/rheumatoid arthritis, hypothyroidism, and GERD. She presented to [facility] ED 02/05/2024 for palpitations and [...] did not advise anticoagulation due to low [id number] score of 1. Few weeks ago she [...] Disp: , Rfl: (more content not included)... [facility] 05-04-2024 Note Attestation signed by Tomas Clinton [...] [facility] of Present illness Narrative [...] Left 2005 inguinal lymph node MASTECTOMY Bilateral 2012 with [...] Easton Keene DO documented in this encounter [facility] 03-03-2023 Note Chief Complaint consultation for LLQ [...] History of pericar (more content not included)... [facility] Comment on above: Result Comment: Elec tronically Signed By: RAUDEL PUENTES, Joselo Daly.nelson\Date and Time Signed: 03/03/23 16:35 EDT 02-04-2023 [...] by: IDA SOTO Date: 2023-02-04 18:18 [facility] 02-04-2023 Note PROCEDURE: XR HIP LT [...] by: IDA SOTO Date: 2023-02-04 18:17 [facility] 02-04-2023 Note PROCEDURE: XR FOOT R T MIN 3 VIEWS COMPARISON: None. HISTORY: Rheumatoid factor positive rheumatoid arthritis FINDINGS: BONES:No acute fracture or dislocation. Mild enthesopathic spurring of the calcaneus at the Achilles insertion. SOFT TISSUES:Negative. No visible soft tissue swelling. EFFUSION:None visible. OTHER: Negative. IMPRESSION: Mild calcaneal Achilles enthesopathy Electronically authenticated by: IDA SOTO Date: 2023-02-04 18:16 [facility] Evaluation + Plan note No data available for this section [facility] [place] Evaluation note Diagnosis Encounter for repeat Pap smear due to previous insuff cervical cells [facility] Diagnosis Well woman exam with routine gynecological exam Routine gynecological examination Breast cancer screening by mammogram Encounter for screening for osteoporosis [facility] Dis[facility] instructions No data available for this section [facility] [place] Progress note No data available for this section [facility] [place] Summary Purpose Family History No Family History Records FoundNo Family History Records FoundNo Family History Records FoundNo Family History Records FoundNo Family History Records Found Advance Directives No Advanced Directives Records FoundNo Advanced Directives Records FoundNo Advanced Directives Records FoundNo Advanced Directives Records FoundNo Advanced Directives Records Found Additional Source Comments INFORMATION SOURCE (unrecogn ized section and content) DATE CREATED AUTHOR 03/16/2021 [facility] DATE CREATED AUTHOR AUTHOR'S ORGANIZ ATION 02/15/2023 [facility] DATE CREATED AUTHOR AUTHOR'S ORGANIZ ATION 04/08/2023 [facility] DATE CREATED AUTHOR AUTHOR'S ORGANIZ ATION 11/25/2024 [facility] DATE CREATED AUTHOR AUTHOR'S ORGANIZ ATION 03/11/2025 [facility] Patient Care team informatio n (unrecognized section and content) Cigarette Machine Filler Relationship Specialty Start Date End Date Mariza Wright MD [address] [place] [phone] PCP - General 09/27/23 Cigarette Machine Filler Relationship Specialty Start Date End Date Mariza Wright MD [address] [place] [address] PCP - General 09/27/23 Cigarette Machine Filler Relationship Specialty Start Date End Date Mariza Wright MD [address] [place] [phone] PCP - General 09/27/23 Cigarette Machine Filler Relationship Specialty Start Date End Date Mariza Wright MD [address] [place] [phone] PCP - General 09/27/23 Reason for Visit [...] BE BASED ON THE PRIMARY CLINICAL RECORDS. [facility] [employer] [facility]. provides no warranty or guarantee of the accuracy or completeness of information in this document.
== END 2025-03-14 13:01 | disposition home or self-care (01) ==
PROVIDERS: PCP Family Medicine; Visit Provider Family Medicine
DX: R00.2 Palpitations (principal)
CPT/HCPCS: 93270

== ENCOUNTER 2025-05-15 15:48 | Outpatient (OUT) | payer BC, SELFPAY ==
[2025-05-15 16:41] LABS: Anion Gap 11.6; Blood Urea Nitrogen 22.0 mg/dL (7.0-18.0); Calcium 9.5 mg/dL (8.5-10.1); Carbon Dioxide 30.0 mmol/L (21.0-32.0); Chloride 101 mmol/L (98-107); Estimated GFR (African America >60 (>=60 mL/min/1.73m^2); Estimated GFR (Non-African Ame 52 (>=60 mL/min/1.73m^2); Glucose 118 mg/dL (74-106); Potassium 4.6 mmol/L (3.5-5.1); Sodium 138 mmol/L (136-145)
[2025-05-15 16:58] LABS: Hematocrit 38.6 % (36.0-48.0); Hemoglobin 12.6 g/dL (12.0-16.0); Immature Granulocytes Abs Auto 0.01 10^3/uL (0.00-0.03); Immature Granulocytes Pct Auto 0.1 % (0.0-0.5); Lymphocytes Absolute Auto 0.8 10^3/uL (1.2-3.8); Mean Corpuscular HGB Conc 32.6 g/dL (29.9-35.2); Mean Corpuscular Hemoglobin 30.7 pg (26.7-34.0); Mean Corpuscular Volume 94.1 fL (81.0-99.0); Platelet Count 481 10^3/uL (150-450); Red Blood Count 4.10 10^6/uL (4.20-5.40); White Blood Count 7.3 10^3/uL (4.0-11.0)
--- OUTSIDE RECORDS SUMMARY | 2025-05-15 17:00 | XMS_ITS | CCD ---
Author Organization [facility] Care Team Providers Care Manager Market Name Role Phone LIBBY WRIGHTLAS [employer] Unavailable [...] Unavailable Mariza Wright MD Primary Care Provider [phone] EASTON KEENE Attending Unavailable TODD RENDON Attending Unavailable TODD RENDON Attending Unavailable TOMAS CLINTON I Attending Unavailable OZ NEZAM I Attending Unavailable ERNESTINE GAN Attending Unavailable ALTOROK NEZAM I Attending Unavailable Allergies Allergy Classification Reported Allergen(s) Allergy Type Date of Onset Reaction(s) Facility (2 sources) Benzoyl Peroxide; Translations: [BENZOYL PEROXIDE] Drug Allergy 07-22-20 15 [facility] (1 source) Desonide Drug Allergy 04-05-20 13 [facility] (1 source) Sulfonamides (Antibiotic) Drug allergy (disorder) 04-05-20 13 [facility] (1 source) Misc-Other; Translations: [Misc-Other] Propensity to adverse reactions (disorder) 07-22-20 15 [facility] (3 sources) Sulfonamides (Antibiotic); Translations: [sulfa drugs] Drug allergy Discoloration of skin (finding) General Surgery [place] (5 sources) Benzoyl Peroxide Drug Allergy 09-20-20 23 [facility] (6 sources) Sulfamethoxazole / Trimethoprim; Translations: [SULFAMETHOXAZOLE-T RIMETHOPRIM] Drug Allergy 02-02-20 23 Rash [facility] (5 sources) Sulfonamides (Antibiotic) Drug Allergy 09-20-20 23 [facility] Work Phone: (5 sources) Wound Dressing Adhesive Drug Allergy 09-21-20 14 Unknown [facility] (1 source) Adhesive agent; Translations: [ADHESIVE] Propensity to adverse reactions to drug (disorder) 09-21-20 14 [facility] Repository (1 source) Sulfonamides (Antibiotic); Translations: [SULFA (SULFONAMIDE ANTIBIOTICS)] Propensity to adverse reactions to drug (disorder) 07-31-20 14 [facility] (1 source) ADHESIVE TAPE-SILICONES; Translations: [ADHESIVE TAPE-SILICONES] Propensity to adverse reactions to drug (disorder) 10-07-19 22 [facility] Medications Current Medications Medication Drug [...] Translations: [Atrial fibrillation] Onset: 4 02-26-2023 Chronic Disorders of lipid metabolism (3 sources) Other hyperlipidemia; Translations: [Hyperlipidemia] Onset: 2 Chronic Esophageal disorders (3 sources) Gastroesophageal reflux disease without esophagitis; Translations: [Gastro-esophageal reflux disease without esophagitis] Onset: 3 Chronic Immunizations and screening for infectious disease (7 sources) Encounter for screening for other viral diseases; Translations: [Encounter for screening for respiratory tuberculosis] Onset: 2 Episodic Osteoarthritis (4 sources) Primary osteoarthritis, right [...] dysrhythmias (2 sources) Palpitations; Translations: [Palpitations] Onset: 12-13-2024 Episodic Malaise and fatigue (4 sources) Fatigue; Translations: [Other fatigue] Onset: 10-19-2024 Episodic Other aftercare (4 sources) Other chcf (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; Translations: [OTH FCI CURRENT [...] Test Name Value Interpretation Reference Range Facility Letter (Out)on 05-01-2025 Letter (Out) [id number] DavidYamileth sousa 1970 F Date Provider Department Center 05/01/2025 None-None [facility] AUTH IN Medical C Family History Problem Relation Age of Onset Dementia Mother Diabetes Mother Other Mother 59 Coronary artery disease Mother Atrial fibrillation Father Coronary artery disease Father Stroke Father 56 Heart attack Father 62 Family Status - Relation Status Age at Mother Alive Father Alive Normal [facility] Office Visiton 04-10-2025 Follow-up visit [id number] Yamileth Hernandez 1970 F Date Provider Department Center 04/10/2025 ERNESTINE SUERO [facility] Family History Problem Relation Age of Onset Dementia Mother Diabetes Mother Other Mother 59 Coronary artery disease Mother Atrial fibrillation Father Coronary artery disease Father Stroke Father 56 Heart attack Father 62 Family Status - Relation Status Age at Mother Alive Father Alive Level of Service:04139 [place] OFFICE/OUTPATIENT NEW HIGH MDM 60 MINUTES Normal [facility] Orders Onlyon 04-10-2025 Orders Only [id number] Yamileth Hernandez 1970 F Date Provider Department Center 04/10/2025 KEELEY [place] CARD [place] [facility] Family History Problem Relation Age of Onset Dementia Mother Diabetes Mother Other Mother 59 Coronary artery disease Mother Atrial fibrillation Father Coronary artery disease Father Stroke Father 56 Heart attack Father 62 Family Status - Relation Status Age at Mother Alive Father Alive Normal [facility] Refillon 04-01-2025 Refill [id number] DavidYamileth sousa 1970 F Date Provider Department Center 04/01/2025 JERMAINE LARRY [facility] Family History Problem Relation Age of Onset Dementia Mother Diabetes Mother Other Mother 59 Coronary artery disease Mother Atrial fibrillation Father Coronary artery disease Father Stroke Father 56 Heart attack Father 62 Family Status - Relation Status Age at Mother Alive Father Alive Reason for Visit and Comments: Med Change Request [411] Normal [facility] Follow-Upon 03-09-2025 Follow-Up [id number] Yamileth Hernandez 1970 F Date Provider Department Center 03/09/2025 Faisal-TOMAS CLINTON I [facility] Family History Problem Relation Age of Onset Dementia Mother Diabetes Mother Other Mother 59 Coronary artery disease Mother Atrial fibrillation Father Coronary artery disease Father Stroke Father 56 Heart attack Father 62 Family Status - Relation Status Age at Mother Alive Father Alive Level of Service:15309 [place] OFFICE/OUTPATIENT ESTABLISHED MOD MDM 30 MIN (GC) Reason for Visit and Comments: Systemic lupus erythematosus, unspecified SLE type, unspeci [Other] Follow-up [151322] Normal [facility] Office Visiton 12-13-2024 Follow-up visit [id number] Yamileth Hernandez 1970 F Date Provider Department Center 12/13/2024 [id number] RENDON CARD [place] [facility] Family History Problem Relation Age of Onset Dementia Mother Diabetes Mother Other Mother 59 Coronary artery disease Mother Atrial fibrillation Father Coronary artery disease Father Stroke Father 56 Heart attack Father 62 Family Status - Relation Status Age at Mother Alive Father Alive Level of Service:57052 [place] OFFICE/OUTPATIENT ESTABLISHED LOW MDM 20 MIN Reason for Visit and Comments: 6 month follow up [Other] Atrial Fibrillation [80] Hyperlipidemia [182] Fatigue [46] - Fatigue due to Lupus flare up Palpitations [508142] - Occasionally Recent labs 08/27 and 12/26 [Other] Normal [facility] IGP,APTIMA HPV,AGE GDLNon AGE GDLN ACOG TESTING Note . [facility] Comment on above: TESTS RESULT FLAG UN ITS REF RANGE LAB Clinician Provided Cytology Information Source.............Vagina No. of containers..01 ThinPrep Vial Age Algo ACOG Sona... 30-65 01 FLAG LEGEND: L-Low Normal,H-High Normal,LL-Alert Low,HH-Alert High <-Panic Low,>-Panic High,A-Abnormal,AA-Critical Abnormal Performed at: 01 =[address] [id number] Jerrica Kam MD, HPV APTIMA Negative Negative [facility] Comment on above: This nucleic acid am plification test detects fourteen high- risk HPV types (16,18,31,33,35,39,45,51,52,56,58,59,66,68) without differentiation. Performed at: =[address] [id number] Fund Accountant: Jerrica Kam MD, Phone: [phone] Performed at: [address] [id number] Fund Accountant: Jerrica Kam MD, Phone: [phone] IGP, APTIMA HPV, RFX 16/18,45 Note . [facility] Comment on above: TESTS RESULT FLAG UN ITS REF RANGE LAB DIAGNOSIS: 02 NEGATIVE FOR INTRAEPITHELIAL LESION OR MALIGNANCY. Specimen adequacy: 02 Satisfactory for evaluation. No endocervical cells are present. This is consistent with a history of hysterectomy. Performed by: 02 Rosa Francis, Performance Improvement Analyst (ASCP) . 02 Note: Note 02 The [...] <-Panic Low,>-Panic High,A-Abnormal,AA-Critical Abnormal Performed at: [address] [phone] Jerrica Kam MD, [facility] Follow-Upon 10-19-2024 Follow-Up [id number] Yamileth Hernandez 1970 Date Provider Department Center 10/19/2024 215TOMAS FRANCO I [facility] Yamil Heal Family History Problem Relation Age of Onset Dementia Mother Diabetes Mother Other Mother 59 Coronary artery disease Mother Atrial fibrillation Father Coronary artery disease Father Stroke Father 56 Heart attack Father 62 Family Status - Relation Status Age at Mother Alive Father Alive Level of Service:94478 [place] OFFICE/OUTPATIENT ESTABLISHED MOD MDM 30 MIN () Reason for Visit and Comments: Follow-up [965514] - Extreme tiredness Normal [facility] Refillon 08-09-2024 Refill [id number] Yamileth Hernandez 1970 Provider Department Center 08/09/2024 215OTMAS FRANCO I [facility] Family History Problem Relation Age of Onset Dementia Mother Diabetes Mother Other Mother 59 Coronary artery disease Mother Atrial fibrillation Father Coronary artery disease Father Stroke Father 56 Heart attack Father 62 Family Status - Relation Status Age at Mother Alive Father Alive Reason for Visit and Comments: Med Refill [452010] - Patient called for refill: triamcinolone (Kenalog) 0.1 % oral paste use in mouth or throat if needed for mucositis/ methylPREDNISolone (Medrol) 4 mg tablet take 1 tablet by mouth in morning take 1/2 tablet by mouth everyday as needed. Please advise. Thanks! [facility] 36on 08-01-2024 36 Called and left rivera santana message for patient [facility] Refillon 08-01-2024 Refill [id number] Yamileth Hernandez 1970 Date Provider Department Center 08/01/2024 TOMAS ROBERTO I [facility] Family History Problem Relation Age of Onset Dementia Mother Diabetes Mother Other Mother 59 Coronary artery disease Mother Atrial fibrillation Father Coronary artery disease Father Stroke Father 56 Heart attack Father 62 Family Status - Relation Status Age at Mother Alive Father Alive Reason for Visit and Comments: Med Refill [287687] [facility] Orders Onlyon 07-28-2024 Orders Only [id number] Yamileth Hernandez 1970 Date Provider Department [place] 07/28/2024 TOMAS ROBERTO I [facility] Family History Problem Relation Age of Onset Dementia Mother Diabetes Mother Other Mother 59 Coronary artery disease Mother Atrial fibrillation Father Coronary artery disease Father Stroke Father 56 Heart attack Father 62 Family Status - Relation Status Age at Mother Alive Father Alive [facility] 36on 07-26-2024 36 Patient called jus gonzalez if you can put in an order for a DEXA scan for her. She stated that she needed a refill for medrol and triamcinolone. [facility] Telephoneon 07-26-2024 Telephone [id number] Yamileth Hernandez 1970 F Date Provider Department Center 07/26/2024 TOMAS ROBERTO I [facility] Family History Problem Relation Age of Onset Dementia Mother Diabetes Mother Other Mother 59 Coronary artery disease Mother Atrial fibrillation Father Coronary artery disease Father Stroke Father 56 Heart attack Father 62 Family Status - Relation Status Age at Mother Alive Father Alive Reason for Visit and Comments: Request For Order(s) [706] [facility] Refill [id number] Yamileth Hernandez 1970 F Date Provider Department Center 06/14/2024 [id number] HAYES [facility] Family History Problem Relation Age of Onset Dementia Mother Diabetes Mother Other Mother 59 Coronary artery disease Mother Atrial fibrillation Father Coronary artery disease Father Stroke Father 56 Heart attack Father 62 Family Status - Relation Status Age at Mother Alive Father Alive Reason for Visit and Comments: Med Refill [[id number]] Normal [facility] Office Visiton 05-22-2024 Follow-up visit [id number] Yamileth Hernandeznelson Dhaliwal 1970 F Date Provider Department Center 05/22/2024 [id number] ДМИТРИЙVANNA [facility] [place] [facility] Family History Problem Relation Age of Onset Dementia Mother Diabetes Mother Other Mother 59 Coronary artery disease Mother Atrial fibrillation Father Coronary artery disease Father Stroke Father 56 Heart attack Father 62 Family Status - Relation Status Age at Mother Alive Father Alive Level of Service:84840 [place] OFFICE/OUTPATIENT ESTABLISHED LOW MDM 20 MIN Reason for Visit and Comments: Atrial Fibrillation [80] Normal [facility] Follow-Upon 05-04-2024 Follow-Up [id number] Yamileth Hernandez yousuf Dhaliwal 1970 F Date Provider Department Center 05/04/2024 215-TOMAS CLINTON I [facility] Family History Problem Relation Age of Onset Dementia Mother Diabetes Mother Other Mother 59 Coronary artery disease Mother Atrial fibrillation Father Coronary artery disease Father Stroke Father 56 Heart attack Father 62 Family Status - Relation Status Age at Mother Alive Father Alive Level of Service:96561 [place] OFFICE/OUTPATIENT ESTABLISHED MOD MDM 30 MIN () Reason for Visit and Comments: Follow-up [329547] [facility] Cytology Cervical or vaginal smear or scraping studyon 11-16-2023 [facility] Healthcare Ambulatory Visit Summaryon 0 04-07-2023 Ambulatory Visit Summary TEETEE HERNANDEZ Madhuri :1970 Visit Date:04/07/2023 Ambulatory Visit Instructions Your [...] Systemic lupus erythematosus Varicose veins of legs [place] General Surgery [...] SARS-CoV-2 (COVID-19) mRNA-1273 vaccine 08/07/2022 Recorded SARSCoV2 mRNA(evqcrqrza-rkra-vrwcxc) vac 01/01/2022 Recorded SARS-CoV-2 (COVID-19) mRNA-1273 vaccine 06/18/2021 Recorded 2023-02-26: TPV50 SARS-CoV-2 (COVID-19) mRNA-1273 vaccine 10/30/2020 Recorded SARS-CoV-2 (COVID-19) mRNA-1273 vaccine 10/02/2020 Recorded [facility] Comment on above: Result Comment: Elec tronically Signed By: RAUDEL PUENTES, Joselo RodriguezDate and Time Signed: 04/07/23 14:01 EDT Reminderson 04-02-2023 Reminders - From: Cristal Gordon LPN To: N - Clinical; Sent: 04/02/2023 11:03:11 EDT Show up: 02/21/2033 07:00:00 EDT Subject: colonoscopy recall Due Date/Time: 03/24/2033 07:00:00 EDT Reminder/Recall Patient due for screening colonoscopy 03/24/2033. [facility] Pathology Noteon 03-29-2023 Pathology Note [id number]#1.00CD:127 [facility] Outside Colonoscopyon 2022 Outside Colonoscopy [id number]#1.00CD:127 [facility] Pre-Certification Formon Pre-Certification Form [id number]#1.00CD:127 [facility] Consent for Procedure/Surger yon 03-05-2023 Consent for Procedure/Surgery [id number]#1.00CD:127 [facility] Facesheeton 03-04-2023 Facesheet [id number]#1.00CD:127 [facility] Ambulatory Visit Summaryon 0 03-03-2023 Ambulatory [...] lupus erythematosus Varicose veins of legs Normal [facility] RAD - CT Reporton 03-03-2023 RAD - CT Report [id number]#1.00CD:127 Normal [facility] Physician Referralon 023 Physician Referral [id number]#1.00CD:127 Normal [facility] CT ABD/PELV W CONon 02-13-20 CT ABD/PELV [...] by: IDA SOTO Date: 2023-02-12 09:54 Normal [facility] QUANTIFERON TB GOLD PLUSon 0 02-07-2023 QuantiFERON Criteria Comment Normal [facility] Comment on above: Result Comment: Rehan [...] test. Performed By: #### Q NTTB #### [facility] [address] [place] [address] Dr. Jazmyn Saavedra QuantiFERON Incubation Incubation performed. Normal [facility] Comment on above: Performed By: #### Q NTTB #### [facility] [address] [place] [address] Dr. Jazmyn Saavedra QuantiFERON Mitogen Value 6.87 IU/mL Normal [facility] Comment on above: Performed By: #### Q NTTB #### [facility] [address] [place] [address] Dr. Jazmyn Saavedra QuantiFERON Nil Value 0.00 IU/mL Normal [facility] Comment on above: Performed By: #### Q NTTB #### [facility] [address] [place] [address] Dr. Jazmyn Saavedra QuantiFERON TB1 Ag Value 0.00 IU/mL Normal [facility] Comment on above: Performed By: #### Q NTTB #### [facility] [address] [place] [address] Dr. Jazmyn Saavedra QuantiFERON TB2 Ag Value 0.00 IU/mL Normal [facility] Comment on above: Performed By: #### Q NTTB #### [facility] [address] [place] [address] Dr. Jazmyn Saavedra QuantiFERON-TB Gold Plus Negative Normal Negative [facility] Comment on above: Result Comment: No r esponse to M tuberculosis antigens detected. Infection with M tuberculosis is unlikely, but high risk individuals should be considered for additional testing (ATS/IDSA/CDC Clinical Practice Guidelines, 2017). The reference range is an Antigen minus Nil result of <0.35 IU/mL. Chemiluminescence immunoassay methodology Performed By: #### Q NTTB #### [facility] [address] [place] [address] Dr. Jazmyn Saavedra HEP B COREon 02-06-2023 Hep B Core Ab, Tot Negative Normal Negative [facility] Comment on above: Performed By: #### S EDR #### [facility] [address] [place] [address] Dr. Jazmyn Saavedra HEP B SURFACE ANTIGEN SCREEN on 02-06-2023 HBsAg Screen Negative Normal Negative [facility] Comment on above: Performed By: #### H BSANS #### [facility] [address] [place] [address] Dr. Jazmyn Saavedra CBC AUTO DIFFon 02-05-2023 BASO # 0.0 103/ul Normal 0.0-0.1 [facility] Comment on above: Performed By: #### C BC #### [facility] [address] [place] [address] Dr. Jazmyn Saavedra Basophils/100 WBC (Bld) 0.5 % Normal 0.2-2.0 [facility] Comment on above: Performed By: #### C BC #### [facility] [address] [place] [address] Dr. Jazmyn Saavedra EO # 0.0 103/ul Normal 0.0-0.7 [facility] Comment on above: Performed By: #### C BC #### [facility] [address] [place] [address] Dr. Jazmyn Saavedra Eosinophils/100 WBC (Bld) 0.8 % Critically low 0.9-7.0 [facility] Comment on above: Performed By: #### C BC #### [facility] [address] [place] [address] Dr. Jazmyn Saavedra Erythrocyte distribution width (RBC) [Ratio] 13.2 % Normal 11.0-15.0 [facility] Comment on above: Performed By: #### C BC #### [facility] [address] [place] [address] Dr. Jazmyn Saavedra Hematocrit (Bld) [Volume fraction] 41.1 % Normal 36.0-48.0 [facility] Comment on above: Performed By: #### C BC #### [facility] [address] [address] [address] Jazmyn Saavedra Hemoglobin (Bld) [Mass/Vol] 13.4 g/dL Normal 12.0-16.0 [facility] Comment on above: Performed By: #### C BC #### [facility] [address] [address] [address] Jazmyn Saavedra IG # 0.01 10e3/ul Normal 0.00-0.03 [facility] Comment on above: Performed By: #### C BC #### [facility] [address] [place] [address] Dr. Jazmyn Saavedra IG % 0.3 % Normal 0.0-0.5 [facility] Comment on above: Performed By: #### C BC #### [facility] [address] [place] [address] Dr. Jazmyn Saavedra LYMPH # 1.2 103/ul Normal 1.2-3.8 [facility] Comment on above: Performed By: #### C BC #### [facility] [address] [place] [address] Dr. Jazmyn Saavedra Lymphocytes/100 WBC (Bld) 31.9 % Normal 20.5-60.0 [facility] Comment on above: Performed By: #### C BC #### [facility] [address] [place] [address] Dr. Jazmyn Saavedra MANUAL DIFF REQ NO Normal [facility] Comment on above: Performed By: #### C BC #### [facility] [address] [place] [address] Dr. Jazmyn Saavedra MCH (RBC) [Entitic mass] 30.6 pg Normal 26.7-34.0 [facility] Comment on above: Performed By: #### C BC #### [facility] [address] [place] [address] Dr. Jazmyn Saavedra MCHC (RBC) [Mass/Vol] 32.6 g/dL Normal 29.9-35.2 [facility] Comment on above: Performed By: #### C BC #### [facility] [address] [address] [address] Jazmyn Saavedra MCV (RBC) [Entitic vol] 93.8 fL Normal 81.0-99.0 [facility] Comment on above: Performed By: #### C BC #### [facility] [address] [address] [address] Jazmyn Saavedra MONO # 0.5 103/ul Normal 0.3-0.8 [facility] Comment on above: Performed By: #### C BC #### [facility] [address] [address] [address] Jazmyn Saavedra Monocytes/100 WBC (Bld) 14.1 % Critically high 1.7-12.0 [facility] Comment on above: Performed By: #### C BC #### [facility] [address] [place] [address] Dr. Jazmyn Saavedra NEUT # 1.9 103/ul Normal 1.4-6.5 [facility] Comment on above: Performed By: #### C BC #### [facility] [address] [place] [address] Dr. Jazmyn Saavedra Neutrophils/100 WBC (Bld) 52.4 % Normal 43.0-75.0 [facility] Comment on above: Performed By: #### C BC #### [facility] [address] [place] [address] Dr. Jazmyn Saavedra Platelet mean volume (Bld) [Entitic vol] 9.4 fL Critically low 9.5-13.5 [facility] Comment on above: Performed By: #### C BC #### [facility] [address] [place] [address] Dr. Jazmyn Saavedra PLT 342 103/ul Normal 150-450 [facility] Comment on above: Performed By: #### C BC #### [facility] [address] [place] [address] Dr. Jazmyn Saavedra RBC 4.38 106/ul Normal 4.20-5.40 [facility] Comment on above: Performed By: #### C BC #### [facility] [address] [address] [address] Jazmyn Saavedra WBC 3.7 103/ul Critically low 4.0-11.0 [facility] Comment on above: Performed By: #### C BC #### [facility] [address] [address] [address] Jazmyn Saavedra FREE THYROXINE INDEX T7on FTI 3.20 Normal 1.30-4.50 [facility] Comment on above: Performed By: #### S EDR #### [facility] [address] [address] [address] Jazmyn Saavedra T3U 36.0 % Normal 30.0-39.0 [facility] Comment on above: Performed By: #### S EDR #### [facility] [address] [place] [address] Dr. Jazmyn Saavedra T4 [Mass/Vol] 8.90 ug/dL Normal 4.80-13.90 [facility] Comment on above: Performed By: #### S EDR #### [facility] [address] [address] [address] Jazmyn Saavedra GLYCOHEMOGLOBIN A1Con 2022 ADA RECOMMENDATION SEE BELOW Normal [facility] Comment on above: Result Comment: ADA RECOMMENDED LIMIT 4.0 - 6.0 ADA THERAPEUTIC TARGET < 7.0 ACTION SUGGESTED > 7.0 Performed By: #### S EDR #### [facility] [address] [address] [address] Jazmyn Saavedra Glucose [Mass/Vol] 123 mg/dL Normal [facility] Comment on above: Performed By: #### S EDR #### [facility] [address] [address] [address] Jazmyn Saavedra HbA1c (Bld) [Mass fraction] 5.9 % Normal 4.5-6.2 [facility] Comment on above: Performed By: #### S EDR #### [facility] [address] [place] [address] Dr. Jazmyn Saavedra LIPID PROFILEon 02-05-2023 CHOL-HDL RATIO NORM SEE BELOW Normal [facility] Comment on above: Result Comment: 3.3 - 4.4 LOW RISK 4.4 - 7.1 AVERAGE RISK 7.1 - 11.0 MODERATE RISK >11.0 HIGH RISK Performed By: #### S EDR #### [facility] [address] [place] [address] Dr. Jazmyn Saavedra Cholesterol [Mass/Vol] 256 mg/dL Critically high <=200 [facility] Comment on above: Performed By: #### S EDR #### [facility] [address] [address] [address] Jazmyn Saavedra Cholesterol in HDL [Mass/Vol] 108 mg/dL Critically high 40-60 [facility] Comment on above: Performed By: #### S EDR #### [facility] [address] [address] [address] Jazmyn Saavedra Cholesterol in LDL [Mass/Vol] 139.4 mg/dL Normal [facility] Comment on above: Performed By: #### S EDR #### [facility] [address] [address] [address] Jazmyn Saavedra Cholesterol.total/ Cholesterol in HDL [Mass ratio] 2.4 {ratio} Normal [facility] Comment on above: Performed By: #### S EDR #### [facility] [address] [address] [address] Jazmyn Saavedra HDL NORMAL > or = 60 mg/dl - LO W CARDIOVASCULAR RISK <40 mg/dl - HIGH CARDIOVASCULAR RISK Normal [facility] Comment on above: Performed By: #### S EDR #### [facility] [address] [address] [address] Jazmyn Saavedra LDL CALC NORMAL SEE BELOW Normal [facility] Comment on above: Result Comment: <100 mg/dl OPTIMAL 100 - 129 mg/dl NEAR OR ABOVE OPTIMAL 130 - 159 mg/dl BORDERLINE HIGH 160 - 189 mg/dl HIGH >190 mg/dl VERY HIGH Performed By: #### S EDR #### [facility] [address] [address] [address] Jazmyn Saavedra Triglyceride [Mass/Vol] 43 mg/dL Normal <=150 [facility] Comment on above: Performed By: #### S EDR #### [facility] [address] [address] [address] Jazmyn Saavedra VLDL CALC 8.6 mg/dL Normal [facility] Comment on above: Performed By: #### S EDR #### [facility] [address] [address] [address] Jazmyn Saavedra PROF 14(COMP METB)on 023 Albumin [Mass/Vol] 4.0 g/dL Normal 3.4-5.0 [facility] Comment on above: Performed By: #### T 7, CMP, LIPID, TSH #### [facility] [address] [address] [address] Jazmyn Saavedra Albumin/Globulin [Mass ratio] 0.9 {ratio} Normal [facility] Comment on above: Performed By: #### T 7, CMP, LIPID, TSH #### [facility] [address] [place] [address] Dr. Jazmyn Saavedra ALP [Catalytic activity/Vol] 57 U/L Normal 46-116 [facility] Comment on above: Performed By: #### T 7, CMP, LIPID, TSH #### [facility] [address] [address] [address] Jazmyn Saavedra ALT [Catalytic activity/Vol] 23 U/L Normal 14-59 [facility] Comment on above: Performed By: #### T 7, CMP, LIPID, TSH #### [facility] [address] [address] [address] Jazmyn Saavedra Anion gap [Moles/Vol] 13.8 mmol/L Normal [facility] Comment on above: Performed By: #### T 7, CMP, LIPID, TSH #### [facility] [address] [place] [address] Dr. Jazmyn Saavedra AST [Catalytic activity/Vol] 23 U/L Normal 15-37 [facility] Comment on above: Performed By: #### T 7, CMP, LIPID, TSH #### [facility] [address] [place] [address] Dr. Jazmyn Saavedra Bilirubin [Mass/Vol] 0.6 mg/dL Normal 0.2-1.0 [facility] Comment on above: Performed By: #### T 7, CMP, LIPID, TSH #### [facility] [address] [place] [address] Dr. Jazmyn Saavedra Calcium [Mass/Vol] 9.6 mg/dL Normal 8.5-10.1 [facility] Comment on above: Performed By: #### T 7, CMP, LIPID, TSH #### [facility] [address] [place] [address] Dr. Jazmyn Saavedra Chloride [Moles/Vol] 100 mmol/L Normal 98-107 [facility] Comment on above: Performed By: #### T 7, CMP, LIPID, TSH #### [facility] [address] [place] [address] Dr. Jazmyn Saavedra CO2 [Moles/Vol] 29.9 mmol/L Normal 21.0-32.0 [facility] Comment on above: Performed By: #### T 7, CMP, LIPID, TSH #### [facility] [address] [place] [address] Dr. Jazmyn Saavedra Creatinine [Mass/Vol] 0.89 mg/dL Normal 0.55-1.02 [facility] Comment on above: Performed By: #### T 7, CMP, LIPID, TSH #### [facility] [address] [place] [address] Dr. Jazmyn Saavedra EGFR-AF MALTESE >60 Normal >=60 [facility] Comment on above: Performed By: #### T 7, CMP, LIPID, TSH #### [facility] [address] [place] [address] Dr. Jazmyn Saavedra EGFR-NON AF MALTESE >60 Normal >=60 [facility] Comment on above: Performed By: #### T 7, CMP, LIPID, TSH #### [facility] [address] [place] [address] Dr. Jazmyn Saavedra Globulin (S) [Mass/Vol] 4.4 g/dL Normal [facility] Comment on above: Performed By: #### T 7, CMP, LIPID, TSH #### [facility] [address] [address] [address] Jazmyn Saavedra Glucose [Mass/Vol] 89 mg/dL Normal 74-106 [facility] Comment on above: Performed By: #### T 7, CMP, LIPID, TSH #### [facility] [address] [address] [address] Jazmyn Saavedra Potassium [Moles/Vol] 3.7 mmol/L Normal 3.5-5.1 [facility] Comment on above: Performed By: #### T 7, CMP, LIPID, TSH #### [facility] [address] [place] [address] [address] Jazmyn Saavedra Protein [Mass/Vol] 8.4 g/dL Critically high 6.4-8.2 [facility] Comment on above: Performed By: #### T 7, CMP, LIPID, TSH #### [facility] [address] [address] [address] Jazmyn Saavedra Sodium [Moles/Vol] 140 mmol/L Normal 136-145 [facility] Comment on above: Performed By: #### T 7, CMP, LIPID, TSH #### [facility] [address] [address] [address] Jazmyn Saavedra Urea nitrogen [Mass/Vol] 17.0 mg/dL Normal 7.0-18.0 [facility] Comment on above: Performed By: #### T 7, CMP, LIPID, TSH #### [facility] [address] [address] [address] Jazmyn Saavedra Urea nitrogen/Creatinin e [Mass ratio] 19.1 mg/mg Normal [facility] Comment on above: Performed By: #### T 7, CMP, LIPID, TSH #### [facility] [address] [address] [address] Jazmyn Saavedra TSHon 02-05-2023 TSH 0.984 uIU/mL Normal 0.358-3.740 [facility] Comment on above: Performed By: #### S EDR #### [facility] [address] [address] [address] Jazmyn Saavedra PAP ACOG PANEL 2: 30 to 65on 01-04-2023 . . Normal [facility] Comment on above: Result Comment: Perf ormed at: [facility] Performed By: #### S EDR #### [facility] [address] [place] [address] Dr. Jazmyn Saavedra Age Gdln ACOG Testing 30-65 [facility] Comment on above: Performed By: #### S EDR #### [facility] [address] [address] [address] Jazmyn Saavedra DIAGNOSIS: Comment Normal [facility] Comment on above: Result Comment: NEGA TIVE FOR INTRAEPITHELIAL LESION OR MALIGNANCY. Performed at: [facility] Performed By: #### S EDR #### [facility] [address] [place] [address] Dr. Jazmyn Saavedra HPV Aptima Negative Normal Negative [facility] Comment on above: Result Comment: This nucleic acid amplification test detects fourteen high-risk HPV types (16,18,31,33,35,39,45,51,52,56,58,59,66,68) without differentiation. Performed at: =G Performed By: #### S EDR #### [facility] [address] [address] [address] Jazmyn Saavedra HPV Genotype Reflex Comment [facility] Comment on above: Result Comment: Crit eria not met, HPV Genotype not performed. Performed at: [facility] Performed By: #### S EDR #### [facility] [address] [place] [address] Dr. Jazmyn Saavedra Methodology: Comment Normal [facility] Comment on above: Result Comment: This liquid based ThinPrep(R) pap test was screened with the use of an image guided system. Performed at: [facility] Performed By: #### S EDR #### [facility] [address] [place] [address] Dr. Jazmyn Saavedra Note: Comment Normal [facility] Comment on above: Result Comment: The Pap smear is a screening test designed to aid in the detection of premalignant and malignant conditions of the uterine cervix. It is not a diagnostic procedure and should not be used as the sole means of detecting cervical cancer. Both false-positive and false-negative reports do occur. . Performed at: [facility] Performed By: #### S EDR #### [facility] [address] [address] [address] Jazmyn Saavedra Performed by: Comment Normal [facility] Comment on above: Result Comment: Daryl Calhoun, Performance Improvement Analyst (ASCP) Performed at: [facility] Performed By: #### S EDR #### [facility] [address] [address] [address] Jazmyn Saavedra Specimen adequacy: Comment Normal [facility] Comment on above: Result Comment: Sati sfactory for evaluation. Endocervical component may not be distinguished in cases of atrophy. Performed at: [facility] Performed By: #### S EDR #### [facility] [address] [place] [address] Dr. Jazmyn Saavedra XR DEXA BONE DENSITYon [...] GILBERT GEORGE Date: 2022-08-28 08:47 Normal [facility] CBC AUTO DIFFon 08-25-2022 BASO # 0.0 103/ul Normal 0.0-0.1 [facility] Comment on above: Performed By: #### S EDR #### [facility] [address] [address] [address] Jazmyn Saavedra Basophils/100 WBC (Bld) 0.5 % Normal 0.2-2.0 [facility] Comment on above: Performed By: #### S EDR #### [facility] [address] [place] [address] Dr. Jazmyn Saavedra EO # 0.1 103/ul Normal 0.0-0.7 [facility] Comment on above: Performed By: #### S EDR #### [facility] [address] [place] [address] Dr. Jazmyn Saavedra Eosinophils/100 WBC (Bld) 1.2 % Normal 0.9-7.0 [facility] Comment on above: Performed By: #### S EDR #### [facility] [address] [place] [address] Dr. Jazmyn Saavedra Erythrocyte distribution width (RBC) [Ratio] 13.2 % Normal 11.0-15.0 [facility] Comment on above: Performed By: #### S EDR #### [facility] [address] [place] [address] Dr. Jazmyn Saavedra Hematocrit (Bld) [Volume fraction] 38.4 % Normal 36.0-48.0 [facility] Comment on above: Performed By: #### S EDR #### [facility] [address] [place] [address] Dr. Jazmyn Saavedra Hemoglobin (Bld) [Mass/Vol] 12.6 g/dL Normal 12.0-16.0 [facility] Comment on above: Performed By: #### S EDR #### [facility] [address] [place] [address] Dr. Jazmyn Saavedra IG # 0.01 10e3/ul Normal 0.00-0.03 [facility] Comment on above: Performed By: #### S EDR #### [facility] [address] [place] [address] Dr. Jazmyn Saavedra IG % 0.2 % Normal 0.0-0.5 [facility] Comment on above: Performed By: #### S EDR #### [facility] [address] [place] [address] Dr. Jazmyn Saavedra LYMPH # 1.7 103/ul Normal 1.2-3.8 [facility] Comment on above: Performed By: #### S EDR #### [facility] [address] [place] [address] Dr. Jazmyn Saavedra Lymphocytes/100 WBC (Bld) 40.8 % Normal 20.5-60.0 [facility] Comment on above: Performed By: #### S EDR #### [facility] [address] [place] [address] Dr. Jazmyn Saavedra MANUAL DIFF REQ NO Normal [facility] Comment on above: Performed By: #### S EDR #### [facility] [address] [place] [address] Dr. Jazmyn Saavedra MCH (RBC) [Entitic mass] 31.0 pg Normal 26.7-34.0 [facility] Comment on above: Performed By: #### S EDR #### [facility] [address] [place] [address] Dr. Jazmyn Saavedra MCHC (RBC) [Mass/Vol] 32.8 g/dL Normal 29.9-35.2 [facility] Comment on above: Performed By: #### S EDR #### [facility] [address] [place] [address] Dr. Jazmyn Saavedra MCV (RBC) [Entitic vol] 94.3 fL Normal 81.0-99.0 [facility] Comment on above: Performed By: #### S EDR #### [facility] [address] [place] [address] Dr. Jazmyn Saavedra MONO # 0.5 103/ul Normal 0.3-0.8 [facility] Comment on above: Performed By: #### S EDR #### [facility] [address] [place] [address] Dr. Jazmyn Saavedra Monocytes/100 WBC (Bld) 11.9 % Normal 1.7-12.0 [facility] Comment on above: Performed By: #### S EDR #### [facility] [address] [place] [address] Dr. Jazmyn Saavedra NEUT # 1.9 103/ul Normal 1.4-6.5 [facility] Comment on above: Performed By: #### S EDR #### [facility] [address] [address] [address] Jazmyn Saavedra Neutrophils/100 WBC (Bld) 45.4 % Normal 43.0-75.0 [facility] Comment on above: Performed By: #### S EDR #### [facility] [address] [address] [address] Jazmyn Saavedra Platelet mean volume (Bld) [Entitic vol] 9.3 fL Critically low 9.5-13.5 [facility] Comment on above: Performed By: #### S EDR #### [facility] [address] [address] [address] Jazmyn Saavedra PLT 309 103/ul Normal 150-450 [facility] Comment on above: Performed By: #### S EDR #### [facility] [address] [address] [address] Jazmyn Saavedra RBC 4.07 106/ul Critically low 4.20-5.40 [facility] Comment on above: Performed By: #### S EDR #### [facility] [address] [address] [address] Jazmyn Saavedra WBC 4.2 103/ul Normal 4.0-11.0 [facility] Comment on above: Performed By: #### S EDR #### [facility] [address] [address] [address] Jazmyn Saavedra CRPon 08-25-2022 CRP [Mass/Vol] mg/L Normal <=1.0 [facility] Comment on above: Performed By: #### C RP, CMP, LIPID #### [facility] [address] [address] [address] Jazmyn Saavedra LIPID PROFILEon 08-25-2022 CHOL-HDL RATIO NORM SEE BELOW Normal [facility] Comment on above: Result Comment: 3.3 - 4.4 LOW RISK 4.4 - 7.1 AVERAGE RISK 7.1 - 11.0 MODERATE RISK >11.0 HIGH RISK Performed By: #### C RP, CMP, LIPID #### [facility] [address] [address] [address] Jazmyn Saavedra Cholesterol [Mass/Vol] 251 mg/dL Critically high <=200 [facility] Comment on above: Performed By: #### C RP, CMP, LIPID #### [facility] [address] [address] [address] Jazmyn Saavedra Cholesterol in HDL [Mass/Vol] 102 mg/dL Critically high 40-60 [facility] Comment on above: Performed By: #### C RP, CMP, LIPID #### [facility] [address] [address] [address] Jazmyn Saavedra Cholesterol in LDL [Mass/Vol] 135.0 mg/dL Normal [facility] Comment on above: Performed By: #### C RP, CMP, LIPID #### [facility] [address] [address] [address] Jazmyn Saavedra Cholesterol.total/ Cholesterol in HDL [Mass ratio] 2.5 {ratio} Normal [facility] Comment on above: Performed By: #### C RP, CMP, LIPID #### [facility] [address] [address] [address] Jazmyn Saavedra HDL NORMAL > or = 60 mg/dl - LO W CARDIOVASCULAR RISK <40 mg/dl - HIGH CARDIOVASCULAR RISK Normal [facility] Comment on above: Performed By: #### C RP, CMP, LIPID #### [facility] [address] [address] [address] Jazmyn Saavedra LDL CALC NORMAL SEE BELOW Normal [facility] Comment on above: Result Comment: <100 mg/dl OPTIMAL 100 - 129 mg/dl NEAR OR ABOVE OPTIMAL 130 - 159 mg/dl BORDERLINE HIGH 160 - 189 mg/dl HIGH >190 mg/dl VERY HIGH Performed By: #### C RP, CMP, LIPID #### [facility] [address] [address] [address] Jazmyn Saavedra Triglyceride [Mass/Vol] 70 mg/dL Normal <=150 [facility] Comment on above: Performed By: #### C RP, CMP, LIPID #### [facility] [address] [address] [address] Jazmyn Saavedra VLDL CALC 14.0 mg/dL Normal [facility] Comment on above: Performed By: #### C RP, CMP, LIPID #### [facility] [address] [place] [address] Dr. Jazmyn Saavedra PROF 14(COMP METB)on 022 Albumin [Mass/Vol] 3.9 g/dL Normal 3.4-5.0 [facility] Comment on above: Performed By: #### C RP, CMP, LIPID #### [facility] [address] [place] [address] Dr. Jazmyn Saavedra Albumin/Globulin [Mass ratio] 1.0 {ratio} Normal [facility] Comment on above: Performed By: #### C RP, CMP, LIPID #### [facility] [address] [place] [address] Dr. Jazmyn Saavedra ALP [Catalytic activity/Vol] 49 U/L Normal 46-116 [facility] Comment on above: Performed By: #### C RP, CMP, LIPID #### [facility] [address] [place] [address] Dr. Jazmyn Saavedra ALT [Catalytic activity/Vol] 17 U/L Normal 14-59 [facility] Comment on above: Performed By: #### C RP, CMP, LIPID #### [facility] [address] [place] [address] Dr. Jazmyn Saavedra Anion gap [Moles/Vol] 10.1 mmol/L Normal [facility] Comment on above: Performed By: #### C RP, CMP, LIPID #### [facility] [address] [place] [address] Dr. Jazmyn Saavedra AST [Catalytic activity/Vol] 19 U/L Normal 15-37 [facility] Comment on above: Performed By: #### C RP, CMP, LIPID #### [facility] [address] [place] [address] Dr. Jazmyn Saavedra Bilirubin [Mass/Vol] 0.5 mg/dL Normal 0.2-1.0 [facility] Comment on above: Performed By: #### C RP, CMP, LIPID #### [facility] [address] [address] [address] Jazmyn Saavedra Calcium [Mass/Vol] 9.3 mg/dL Normal 8.5-10.1 [facility] Comment on above: Performed By: #### C RP, CMP, LIPID #### [facility] [address] [address] [address] Jazmyn Saavedra Chloride [Moles/Vol] 103 mmol/L Normal 98-107 [facility] Comment on above: Performed By: #### C RP, CMP, LIPID #### [facility] [address] [place] [address] Dr. Jazmyn Saavedra CO2 [Moles/Vol] 30.1 mmol/L Normal 21.0-32.0 [facility] Comment on above: Performed By: #### C RP, CMP, LIPID #### [facility] [address] [place] [address] Dr. Jzamyn Saavedra Creatinine [Mass/Vol] 0.80 mg/dL Normal 0.55-1.02 [facility] Comment on above: Performed By: #### C RP, CMP, LIPID #### [facility] [address] [place] [address] Dr. Jazmyn Saavedra EGFR-AF MALTESE >60 Normal >=60 [facility] Comment on above: Performed By: #### C RP, CMP, LIPID #### [facility] [address] [place] [address] Dr. Jazmyn Saavedra EGFR-NON AF MALTESE >60 Normal >=60 [facility] Comment on above: Performed By: #### C RP, CMP, LIPID #### [facility] [address] [place] [address] Dr. Jazmyn Saavedra Globulin (S) [Mass/Vol] 4.1 g/dL Normal [facility] Comment on above: Performed By: #### C RP, CMP, LIPID #### [facility] [address] [place] [address] Dr. Jazmyn Saavedra Glucose [Mass/Vol] 92 mg/dL Normal 74-106 [facility] Comment on above: Performed By: #### C RP, CMP, LIPID #### [facility] [address] [address] [address] Jazmyn Saavedra Potassium [Moles/Vol] 4.2 mmol/L Normal 3.5-5.1 [facility] Comment on above: Performed By: #### C RP, CMP, LIPID #### [facility] [address] [address] [address] Jazmyn Saavedra Protein [Mass/Vol] 8.0 g/dL Normal 6.4-8.2 [facility] Comment on above: Performed By: #### C RP, CMP, LIPID #### [facility] [address] [address] [address] Jazmyn Saavedra Sodium [Moles/Vol] 139 mmol/L Normal 136-145 [facility] Comment on above: Performed By: #### C RP, CMP, LIPID #### [facility] [address] [place] [address] Dr. Jazmyn Saavedra Urea nitrogen [Mass/Vol] 20.0 mg/dL Critically high 7.0-18.0 [facility] Comment on above: Performed By: #### C RP, CMP, LIPID #### [facility] [address] [address] [address] Jazmyn Saavedra Urea nitrogen/Creatinin e [Mass ratio] 25.0 mg/mg Normal [facility] Comment on above: Performed By: #### C RP, CMP, LIPID #### [facility] [address] [place] [address] Dr. Jazmyn Saavedra SED RATE [facility] 2021 SED RATE 47 mm/hr Critically high <=30 [facility] Comment on above: Performed By: #### S EDR #### [facility] [address] [place] [address] Dr. Jazmyn Saavedra ASYMPTOMATIC COVID-19 ANTIGE Non 05-18-2022 EUA Statement SEE BELOW Normal [facility] Comment on above: Result Comment: This test [...] sooner. Performed By: #### S EDR #### [facility] [address] [place] [address] Dr. Jazmyn Saavedra SARS-CoV-2 (COVID-19) RNA NILES+probe Ql (Unsp spec) Positive Critically abnormal NEGATIVE [facility] Comment on above: Result Comment: SARS -CoV-2 antigen present; does not rule out coinfection with other pathogens. Performed By: #### S EDR #### [facility] [address] [place] [address] Dr. Jazmyn Saavedra Covid-19 PCR (CVDTB)on SARS-CoV-2 (COVID-19) RNA NILES+probe Ql (Unsp spec) Detected Critically abnormal NOT DETECTED [facility] Comment on above: Result Comment: This test is not yet approved or cleared by the [place] FDA. When there are no FDA-approved or cleared tests available, and other criteria are met, FDA can make tests available under an emergency access mechanism called an Emergency Use Authorization (EUA). The EUA for this test is supported by the [employer]er of Health and Human Service's declaration that [...] used). Performed By: #### C VDTBH #### [facility] [address] [place] [address] Dr. Jazmyn Saavedra [facility] MULTI-CANCER PANELon 02-12-2021 RESULT Results to be mailed directly to physician's office by reference lab. Normal [facility] Comment on above: Result Comment: Test performed by [facility] [address] [place] [address], [place], [place] [phone] No result expected. For billing and tracking purposes only. Performed By: #### 3 1846 #### [address] Vital Signs Date Time Vital Sign Value Performing Clinician Facility 11-23-2024 09:55-0500 Body mass index (BMI) [Ratio] 25.63 kg/m2 Easton Jassi DO Work Phone: [facility] 11-23-2024 09:55-0500 Body weight 69.85 kg Easton Jassi DO Work Phone: [facility] 11-23-2024 09:55-0500 Diastolic blood pressure 72 mm[Hg] Easton Jassi DO Work Phone: [facility] 11-23-2024 09:55-0500 Systolic blood pressure 124 mm[Hg] Easton Jassi DO Work Phone: [facility] 11-16-2023 11:39-0500 Body mass index (BMI) [Ratio] 24.96 kg/m2 Easton Jassi DO Work Phone: [facility] 11-16-2023 11:39-0500 Body weight 68.04 kg Easton Jassi DO Work Phone: [facility] 11-16-2023 11:39-0500 Diastolic blood pressure 72 mm[Hg] Easton Jassi DO Work Phone: [facility] 11-16-2023 11:39-0500 Systolic blood pressure 118 mm[Hg] Easton Jassi DO Work Phone: [facility] 03-03-2023 14:35-0400 Blood Pressure Location Joselo ST[facility] [place] 03-03-2023 14:35-0400 Diastolic blood pressure 68 mm[Hg] Joselo STAR[facility] [place] 03-03-2023 14:35-0400 Heart rate 68 /min Joselo STARKS [facility] [place] 03-03-2023 14:35-0400 Respiratory rate 16 /min Joselo STARKS [facility] [place] 03-03-2023 14:35-0400 Systolic blood pressure 114 mm[Hg] Joselo STARKS [facility] [place] Encounters Encounter Date Encounter Type Care Provider Facility Start: 04-10-2025 End: 04-10-2025 ambulatory ERNESTINE [facility] Start: 03-09-2025 End: 03-09-2025 ambulatory [facility] Start: 12-13-2024 ambulatory [facility] Start: 11-23-2024 End: 11-23-2024 Bamboo flowsheet Easton [...] for osteoporosis Start: 10-19-2024 End: 10-19-2024 ambulatory NEZAM I [facility] Start: 05-22-2024 End: 05-22-2024 ambulatory TODD ERNDON [facility] Start: 05-04-2024 End: 05-04-2024 ambulatory TOMAS Solorio [facility] Start: 11-16-2023 End: 11-16-2023 Postop follow up visit related to original px Easton Keene DO Work Phone: [facility] Comment on above: Encounter for repeat Pap smear due to previous insuff cervical cells Start: 04-07-2023 End: 04-08-2023 [facility] Start: 04-07-2023 End: 04-07-2023 Patient encounter procedure Joselo R NILL [facility] [place] Start: 03-24-2023 End: 03-25-2023 ambulatory Joselo R NILL Facility:[id number] Start: 03-03-2023 End: 03-04-2023 ambulatory [facility] Start: 03-03-2023 End: 03-03-2023 Patient encounter procedure Joselo R NILL [facility] [place] Start: 02-18-2023 ambulatory Mariza [place] Facility:[facility] Start: 02-12-2023 Encounter for genera l adult medical examination without abnormal findings MARIZA HOY [facility] Start: 02-12-2023 End: 02-13-2023 ambulatory MARIZA HOCleopatra Facility:[facility] Start: 02-05-2023 End: 02-06-[address] DOCTOR KELLOGG Facility:[facility] Start: 02-05-2023 End: 02-06-2023 Encounter for general adult medical examination without abnormal findings MAIRZA HOY Facility:[facility] Start: 02-04-2023 End: 02-05-2023 ambulatory [...] Performing Clinician Start: 11-23-2024 IGP,APTIMA HPV,AGE GDLN [employer] Work Phone: Start: 11-16-2023 Microscopic observation [Identifier] in Cervix by Cyto stain [employer] Work Phone: Start: 11-16-2023 Cytp cerv/vag auto thin layer prep mnl screen [employer] Work Phone: Start: 03-24-2023 Colonoscopy [facility] Work Phone: Start: 03-24-2023 Colonoscopy Joselo NILL Start: 03-24-2023 Esophagogastroduodenoscopy Joselo NILL Start: 09-23-2022 Microscopic observation [Identifier] in Cervix by Cyto stain [employer] Work Phone: Start: 07-24-2015 Colonoscopy Joselo NILL Start: 02-01-2007 Colonoscopy Joselo NILL Bilateral mastectomy Joselo NILL Biopsy of breast Joselo NIL L section Joselo NIL L Excision of cervical intervertebral disc Joselo NILL Excision of lymph node Tony flori NILL Comment on above: left inguinal Excision of salivary gland Madhuri lara NILL Comment on above: x2 Granuloma (morpholog ic abnormality) Joselo STARKS Comment on above: x 2 History of radiofreq uency ablation operation for arrhythmia Joselo STARKS Total abdominal hyst erectomy with bilateral salpingo-oophorectomy Joselo STARKS Plan of Treatment Date Care Activity Detail Author Start: 03-24-2033 Screening for malignant neoplasm of colon [facility] Start: 11-16-2028 Screening for malignant neoplasm of cervix [facility] Start: 09-23-2027 Screening for malignant neoplasm of cervix [facility] Start: 11-28-2025 End: 11-28-2025 Patient encounter procedure 11/28/2025 1:00 PM EST Office Visit [facility] [address] [place] [phone] Easton Keene, DO [address] [place] [address] [facility] Start: 01-27-2025 Screening for malignant neoplasm of colon FIT-DNA [facility] Start: 11-20-2024 End: 11-20-2024 Patient encounter procedure 11/20/2024 4:00 PM EST Office Visit [facility] [address] [place] [phone] Easton Keene, DO [address] [place] [address] [facility] Start: 06-04-2023 Influenza vaccination Influenza Vacc ine (#1) [facility] Start: 2008 Screening for malignant neoplasm of breast Mammogram [facility] Start: 1968 Screening for malignant neoplasm of colon [facility] THIN PREP TIS PAP AN D HR HPV DNA THIN PREP TIS PAP AND HR HPV DNA Pathology and Cytology Routine Well woman exam with routine gynecological exam Ordered: 11/23/2024 [facility] Work Phone: Comment on above: Ordered: 11/23/2024 Immunizations Immunization Date Immunization Notes Care Provider Fa cilideisi 08-07-2022 SARS-CoV-2 (COVID-19 ) mRNA-1273 vaccine Joselo STARKS [facility] 01-01-2022 SARS-CoV-2 mRNA (ttgsdtgsusw-jdgh-aybfa se) vaccine Joselo STARKS [facility] 06-18-2021 SARS-CoV-2 (COVID-19 ) mRNA-1273 vaccine Joselo STARKS [facility] Comment on above: Result Comment: 2022: [id number] 10-30-2020 SARS-CoV-2 (COVID-19 ) mRNA-1273 vaccine Joselo STARKS [facility] 10-02-2020 SARS-CoV-2 (COVID-19 ) mRNA-1273 vaccine Joselo STARKS [facility] Payers Date Payer Category Payer [facility] BCBS [id number] 2022 Unknown BCBS BCBS [id number] [id number] 2022-Present [phone] [address] [place] [address] [id number] 2022 Unknown [id number] 2019 Unknown [id number] 1968 Unknown [id number] 2.16.840.1.459330.3.579.2. 593 1968 Unknown [id number] 2.16.840.1.815010.3.579.2. 593 1968 Unknown [id number] 2.16.840.1.348475.3.579.2. 593 1968 Unknown [id number] 2.16.840.1.365858.3.579.2. 593 1968 Unknown [id number] 2.16.840.1.740300.3.579.2. 593 1968 Unknown [id number] 2.16.840.1.669353.3.579.2. 593 1968 Unknown [id number] 2.16.840.1.726534.3.579.2. 593 1968 Unknown [id number] 2.16.840.1.367079.3.579.2. 593 1968 Unknown [id number] 2.16.840.1.119005.3.579.2. 593 1968 Unknown [id number] 2.16.840.1.057140.3.579.2. 727 1968 Unknown [id number] 2.16.840.1.118212.3.579.2. 727 1968 Unknown [id number] 2.16.840.1.206261.3.579.2. 727 1968 Unknown [id number] 2.16.840.1.451706.3.579.2. 1259 1959 Self-pay [id number] Unknown [id number] 2.16.840.1.977429.3.579.2. 593 Social History Date Type Detail Facility Start: 03-03-2023 End: 09-24-2023 Tobacco smoking status Never smoked tobacco (finding) [facility] [place] Tobacco smoking status Never [facility] [place] Start: 09-24-2023 End: 11-23-2024 Sex Assigned At Female Tahir Fair [facility] Start: 10-28-2023 End: 11-23-2024 Alcohol intake [...] 03-03-2023 Functional Status N/A [facility] [place] Clinical Notes 02-04-2023 to 04-10-2025 Vibha Jordan LPN - 11/23/2024 9:30 AM ESTEaston Keene DO - 11/16/2023 11:20 AM EST Note Date & Type Note Facility 04-10-2025 Note IN Electrophysiology Consult Note [place] Cardiology [facility] Reason for visit: HPI: Teetee Hernandez is a 55 y.o. year old with past medical history of SVT ablation at [facility] approximately 20 years ago, lupus/RA arthritis, hypothyroidism, GERD, left-sided invasive breast cancer s/p bilateral mastectomy in 2012, who was supposed to have some sort of episode of palpitations and was noted to have atrial fibrillation when she was given adenosine to break the SVT. Apparently she was noted to have A-fib or a flutter as per her in the ED visit and at that time was consulted over the phone with Dr. Correia who advised against anticoagulation due to the low Justin Vasc score of 1. She has subsequently followed up with Dr.Samar Rendon who had followed her and confirmed the presence of atrial fibrillation based on an EKG in February 2024. She has been continued on aspirin and subsequently she was seen by her PCP Dr. Wright who had put her on a monitor due to her complaints of palpitation. This revealed the presence of SVT which appears likely to be atrial flutter. It occurred on April 06, 2025. She was not fully aware of this as she stated that she was active at that time and attributed her symptoms to being out in the sun Apparently patient had episodes of palpitations after she had underwent the ablation with Dr. Collins many years ago however there were very nonsustained. She did very well for a long time because her prior episodes of SVT were all associated with that responded to adenosine. Patient is here today per Dr. Wright's request for SVT on event monitor. Patient states she feels good. Patient states she has had some lightheaded/dizziness and SOB. Patient denies chest pain, leg swelling, and GARCIA PMH: Medical History[1] PSH: Surgical History[2] SH: Social Drivers of Health Tobacco Use: Low Risk (04/10/2025) Patient History Smoking Tobacco Use: Never Smokeless Tobacco Use: Never Passive Exposure: Not on file Alcohol Use: Not At Risk (09/24/2023) Received from [facility] AUDIT-C Frequency of Alcohol Consumption: Never Average Number of Drinks: 1 or 2 Frequency of Binge Drinking: Weekly Financial Resource Strain: Not on file Food Insecurity: Not on file Transportation Needs: Not on file Physical Activity: Not on file Stress: Not on file Social Connections: Not on file Intimate Partner Violence: Unknown (02/23/2024) [place] Safety & Environment Fear of Current or Ex-Partner: Not on file Emotionally Abused: Not on file Physically Abused: Not on file Sexually Abused: Not on file Physically or Sexually Abused: Not on file Depression: Not at risk (03/09/2025) PHQ-2 PHQ-2 Score: 0 Housing Stability: Not on file Utilities: Not on file Health Literacy: Not on file Allergies: Allergies[3] Weight: 71.2kg Visit Vitals BP 114/77 (BP Location: Right arm, Patient Position: Sitting) Pulse 70 Ht 1.753 m (5' 9 ) Wt 71.2 kg (157 lb) LMP (LMP Unknown) SpO2 97% BMI 23.18 kg/m??? OB Status Hysterectomy Smoking Status Never BSA 1.86 m??? Meds: Medications Ordered Prior to Encounter[4] ROS: Review of Systems Cardiovascular: Positive for palpitations. Respiratory: Positive for shortness of breath. Neurological: Positive for dizziness and light-headedness. Physical Exam: Constitutional General Appearance: well-nourished, well-developed, appears stated age Level of Distress: comfortable Eyes DERIK Neck Neck: supple, trachea midline Carotid Arteries: bilateral normal upstroke, no bruits Jugular Veins: normal jugular venous pressure Thyroid: not enlarged Lungs Respiratory Effort: unlabored Chest Exam: normal curvature, no thoracic deformity Auscultation: clear, no wheezing, no rales, no rhonchi Cardiovascular Chest wall: Rate And Rhythm: regular Heart Sounds: normal S1, normal s2, no gallop Systolic Murmur: not heard Diastolic Murmur: not heard Extremities: no cyanosis, no edema, no peripheral signs of emboli Peripheral Pulses Radial Pulse: normal Abdomen Inspection and Palpation: soft, non distended, no bruit, non tender Neurologic Gait: normal gait Labs: @LABRESULTS@ No results found for: CHOLESTEROL TOTAL , HDL , LDL CALC , LDL DIRECT , TRIGLYCERIDES , TSH , T3 TOTAL , T4 TOTAL , THYROID PEROXIDASE AB , BNP EKG: No results found for this or any previous visit (from the past 4464 hours). Echo: February 23, 2024 Stress test: Coronary angiogram: @CATH@ Diagnostic Imagin-day Holter monitor Assessment and Plan: - Recurrence of atrial flutter - Past diagnosis of atrial fibrillation - History of SVT ablation in the past - History of lupus/RA Given that the patient has good evidence of both atrial fibrillation and the possibility of current evidence of atrial flutter versus atrial tachycardia I discussed that she could benefit a deferment SVT ablation versus waiting for an A-fib ab (more content not included)... [facility] 03-09-2025 Note Attestation signed by Tomas Clinton [...] of 10/28, patient says she did in [place] on 08/27 and will arrange to get these to us - Agree with exercises to help with fatigue - Handicap amarisabram given on 10/19/24 Plan: - Continue Plaquenil [...] is candidate f (more content not included)... [facility] 12-13-2024 Note [facility] [...] ablation about 20 years ago at [facility]. History of pericarditis remotely. She has history of lupus/rheumatoid arthritis, hypothyroidism, and GERD. She presented to [facility] ED 02/05/2024 for palpitations and SOB. [...] did not advise anticoagulation due to low [id number] score of 1. Few weeks ago she [...] levothyroxine (Synthroid, Levoxyl (more content not included)... [facility] 11-23-2024 History of Present illness Narrative [...] nursing note reviewed. Exam conducted with a montessori paraprofessional present. Vitals: Estimated body mass index is [...] Easton Keene DO documented in this encounter [facility] 10-19-2024 Note Attestation signed by Tomas Clinton [...] of 10/28, patient says she did in [place] on 08/27 and will arrange to get [...] Seen by Dr Clinton and Dr Hayes [facility] 05-22-2024 Note [place] [facility] Note Reason for cardiology [...] ablation about 20 years ago at [facility]. History of pericarditis remotely. She has history of lupus/rheumatoid arthritis, hypothyroidism, and GERD. She presented to [facility] ED 02/05/2024 for palpitations and SOB. [...] did not advise anticoagulation due to low [id number] score of 1. Few weeks ago she [...] Rfl: (more content not included)... [facility] 05-04-2024 Note Attestation signed by Tomas [...] Seen by Dr Clinton and Dr Hayes [facility] 11-16-2023 History of Present illness Narrative Reason [...] Easton Keene DO documented in this encounter [facility] 03-03-2023 Note Chief Complaint consultation for LLQ [...] History of pericar (more content not included)... [facility] Comment on above: Result Comment: Elec tronically [...] authenticated by: IDA SOTO Date: 2023-02-04 18:18 [facility] 02-04-2023 Note PROCEDURE: XR HIP LT 2 3V WO PELVIS COMPARISON: None. HISTORY: Rheumatoid factor positive rheumatoid arthritis FINDINGS: BONES:No acute fracture or dislocation. No significant degenerative changes. Heterotopic ossification superior to the greater trochanter SOFT TISSUES:Negative. No visible soft tissue swelling. EFFUSION:None visible. OTHER: Negative. IMPRESSION: No evidence of erosive or inflammatory arthritis Electronically authenticated by: IDA SOTO Date: 2023-02-04 18:17 [facility] 02-04-2023 Note PROCEDURE: XR FOOT R T MIN 3 VIEWS COMPARISON: None. HISTORY: Rheumatoid factor positive rheumatoid arthritis FINDINGS: BONES:No acute fracture or dislocation. Mild enthesopathic spurring of the calcaneus at the Achilles insertion. SOFT TISSUES:Negative. No visible soft tissue swelling. EFFUSION:None visible. OTHER: Negative. IMPRESSION: Mild calcaneal Achilles enthesopathy Electronically authenticated by: IDA SOTO Date: 2023-02-04 18:16 [facility] Evaluation + Plan note No data available for this section [facility] [place] Evaluation note Diagnosis Encounter for repeat Pap smear due to previous insuff cervical cells documented in this encounter [facility] HealthcareEvaluation note* Diagnosis Well woman exam with routine gynecological exam Routine gynecological examination Breast cancer screening by mammogram Encounter for screening for osteoporosis documented in this encounter [facility] Discharge instructions No data available for this section [facility] [place] Progress note No data available for this section [facility] [place] Summary Purpose Family History No Family History Records FoundNo Family History Records FoundNo Family History Records FoundNo Family History Records FoundNo Family History Records Found Advance Directives No Advanced Directives Records FoundNo Advanced Directives Records FoundNo Advanced Directives Records FoundNo Advanced Directives Records FoundNo Advanced Directives Records Found Additional Source Comments INFORMATION SOURCE (unrecogn ized section and content) DATE CREATED AUTHOR 03/16/2021 [facility] DATE CREATED AUTHOR AUTHOR'S ORGANIZ ATION 02/15/2023 [facility] DATE CREATED AUTHOR AUTHOR'S ORGANIZ ATION 04/08/2023 [facility] DATE CREATED AUTHOR AUTHOR'S ORGANIZ ATION 11/25/2024 [facility] EPIC DATE CREATED AUTHOR AUTHOR'S ORGANIZ ATION 05/02/2025 [facility] Patient Care team informatio n (unrecognized section and content) Manager Market Relationship Specialty Start Date End Date Mariza Wright MD [address] [place] [address] PCP - General 09/27/23 Manager Market Relationship Specialty Start Date End Date Mariza Wright MD [address] [facility] [place] [address] PCP - General 09/27/23 Manager Market Relationship Specialty Start Date End Date Mariza Wright MD [address] [facility] [place] [address] PCP - General 09/27/23 Manager Market Relationship Specialty Start Date End Date Mariza Wright MD [address] [facility] [place] [address] PCP - General 09/27/23 Reason for Visit [...] BE BASED ON THE PRIMARY CLINICAL RECORDS. [facility] [employer] [facility]. provides no warranty or guarantee of the accuracy or completeness of information in this document.
== END 2025-05-15 15:49 | disposition home or self-care (01) ==
PROVIDERS: PCP Family Medicine; Visit Provider Internal Medicine Cardiovascular Disease
DX: I47.10 Supraventricular tachycardia, unspecified (principal)
CPT/HCPCS: 36415; 80048; 85025

== ENCOUNTER 2025-06-21 09:45 | Outpatient (OUT) | payer OTHER, SELFPAY ==
--- OUTSIDE RECORDS SUMMARY | 2025-06-21 09:49 | XMS_ITS | CCD ---
Author Organization [facility] Care Team Providers Care Hvac Operations Technician Name Role Phone MARIZA WRIGHT Consulting Unavailable HOY, MARIZA Primary Care Unavailable HOY, MARIZA Attending Unavailable HOY, MARIZA Admitting Unavailable PASTOR JACQUI Consulting Unavailable HOY, MARIZA Primary Care Unavailable PASTORCORINAA Attending Unavailable PASTOR JACQUI Admitting Unavailable MISC, DR BRAMBILA Consulting [...] Primary Care Unavailable PASTOR JACQUI Attending Unavailable PASTOR JACQUI Admitting Unavailable Hoy, Mariza Primary Care Physician Mariza Wright Referring Unavailable NILL, Joselo R Attending Unavailable Joselo STARKS Attending Unavailable Joselo STARKS Attending Unavailable Mariza Wright MD Primary Care Provider [phone] EASTON KEENE Attending Unavailable TOMAS CLINTON I Attending Unavailable TOMAS CLINTON I Attending Unavailable TODD DONALD Attending Unavailable HIRAM KRAUSE Attending Unavailable HIRAM KRAUSE Admitting Unavailable HIRAM KRAUSE Attending Unavailable JANELLE CAMPOS Attending Unavailable HIRAM KRAUSE Referring Unavailable Allergies Allergy Classification Reported Allergen(s) Allergy Type Date of Onset Reaction(s) Facility (2 sources) Benzoyl Peroxide; Translations: [BENZOYL PEROXIDE] Drug Allergy 07-22-20 15 [facility] Repository (1 source) Desonide Drug Allergy 04-05-20 13 [facility] Rep[facility] (1 source) Sulfonamides (Antibiotic) Drug allergy (disorder) 04-05-20 13 [facility] Rep[facility] (1 source) Misc-Other; Translations: [Misc-Other] Propensity to adverse reactions (disorder) 07-22-20 15 [facility] Repository (3 sources) Sulfonamides (Antibiotic); Translations: [sulfa drugs] Drug allergy Discoloration of skin (finding) [facility] [place] (5 sources) Benzoyl Peroxide Drug Allergy 09-20-[address] [facility] (6 sources) Sulfamethoxazole / Trimethoprim; Translations: [SULFAMETHOXAZOLE-T RIMETHOPRIM] Drug Allergy 02-02-[address] [facility] (5 sources) Sulfonamides (Antibiotic) Drug Allergy 09-20-20 23 [facility] Healthcare Work Phone: (5 sources) Wound Dressing Adhesive Drug Allergy 09-21-[address] [facility] (1 source) Adhesive agent; Translations: [ADHESIVE] Propensity to adverse reactions to drug (disorder) 09-21-[address] [facility] Repository (1 source) Sulfonamides (Antibiotic); Translations: [SULFA (SULFONAMIDE ANTIBIOTICS)] Propensity to adverse reactions to drug (disorder) 07-31-[address] [facility] Repository (1 source) ADHESIVE TAPE-SILICONES; Translations: [ADHESIVE TAPE-SILICONES] Propensity to adverse reactions to drug (disorder) 10-07-[address] [facility] Repository Medications Current Medications Medication [...] neoplasm of breast 02-26-2023 Episodic Cardiac dysrhythmias (8 sources) Supraventricular tachycardia; Translations: [Unspecified atrial flutter] Onset: 4 02-26-2023 Chronic Cardiac dysrhythmias (4 sources) Palpitations; Translations: [Palpitations] Onset: 4 Episodic Disorders of lipid metabolism (3 sources) [...] erythematosus] Onset: 3 02-26-2023 Chronic Thyroid disorders (2 sources) Hypothyroidism [...] Translations: [Supraventricular tachycardia, unspecified] Onset: 4 Unclassified (2 sources) 6 month follow up [...] Problem Classification Problem Date Documented Date Episodic/Chronic Malaise and fatigue (4 sources) Fatigue; Translations: [Other fatigue] Onset: 10-19-2024 Episodic Other aftercare (4 sources) 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; Translations: [OTH ALF CURRENT DRUG THERAPY] Onset: 08-25-2022 Episodic Other bone disease and musculoskeletal deformities (4 sources) Other specified disorders of bone density and structure, other site; Translations: [OTH D/O BONE DEN STRUCT OTH SITE] Onset: 08-28-2022 Episodic Other connective tissue disease (2 sources) Fibromyalgia; Translations: [Fibromyalgia] Onset: 03-09-2025 Episodic Unclassified (1 source) RHEU ARTH R FCT O SIT W/O ORG SY IN; Translations: [RHEU ARTH R FCT O SIT W/O ORG SY IN] Onset: 02-04-2023 Unclassified (1 source) CONTACT W/AND (SUSP) EXPOS COVID-19; Translations: [CONTACT W/AND (SUSP) EXPOS COVID-19] Onset: 05-18-2022 Unclassified (1 source) Supraventricular tachycardia, unspecified; Translations: [Supraventricular tachycardia, unspecified] Onset: 06-18-2025 Unclassified (1 source) Rheumatoid arthritis with rheumatoid factor of other specified site without organ or systems involvement; Translations: [Rheumatoid arthritis with rheumatoid factor of other specified site without organ or systems involvement] Onset: 10-19-2024 Results Test Name Value Interpretation Reference Range Facility Follow-Upon 06-18-2025 Follow-Up [id number] Yamileth Hernandez 1970 Date Provider Department Center 06/18/2025 [id number], ADAM BRANDON [place] Family History Problem Relation Age of Onset Dementia Mother Diabetes Mother Other Mother 59 Coronary artery disease Mother Atrial fibrillation Father Coronary artery disease Father Stroke Father 56 Heart attack Father 62 Family Status - Relation Status Age at Mother Alive Father Alive Level of Service:97051 DC OFFICE/OUTPATIENT ESTABLISHED LOW MDM 20 MIN Reason for Visit and Comments: Follow-up [006665] - EP studies which they were unable to recreate any arrhythmia. Possible loop recorder placement Hyperlipidemia [182] Atrial Fibrillation [80] Atrial Flutter [101] Normal 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 [facility] Refillon 06-06-2025 Refill [id number] Yamileth Hernandez 1970 Date Provider Department Center 06/06/2025 215-TOMAS CLINTON I [facility] Family History Problem Relation Age of Onset Dementia Mother Diabetes Mother Other Mother 59 Coronary artery disease Mother Atrial fibrillation Father Coronary artery disease Father Stroke Father 56 Heart attack Father 62 Family Status - Relation Status Age at Mother Alive Father Alive Reason for Visit and Comments: Med Refill [[id number]] [facility] Letter (Out)on 05-24-2025 Letter (Out) [id number] Yamileth Hernandez 1970 Provider Department Center 05/24/2025 None-None [facility] AUTH [place] [facility] Family History Problem Relation Age of Onset Dementia Mother Diabetes Mother Other Mother 59 Coronary artery disease Mother Atrial fibrillation Father Coronary artery disease Father Stroke Father 56 Heart attack Father 62 Family Status - Relation Status Age at Mother Alive Father Alive [facility] Orders Onlyon 05-22-2025 Orders Only [id number] Yamileth Hernandez 1970 [facility] Provider Department Center 05/22/2025 [id number], HISTORICAL BRANDON [place] Family History Problem Relation Age of Onset Dementia Mother Diabetes Mother Other Mother 59 Coronary artery disease Mother Atrial fibrillation Father Coronary artery disease Father Stroke Father 56 Heart attack Father 62 Family Status - Relation Status Age at Mother Alive Father Alive Normal [facility] HPon 05-21-2025 [facility] Electrophysiology Consult Note [place] [facility] - [facility] Reason for visit: HPI: Teetee Hernandez is a 55 y.o. year old with past medical history of SVT ablation at [facility] approximately 20 years ago, lupus/RA arthritis, hypothyroidism, [...] She has subsequently followed up with Dr.Samar Donald who had followed her and confirmed the [...] Use: Not At Risk (09/24/2023) Received from [facility] AUDIT-C Frequency of Alcohol Consumption: Never Average Number of Drinks: 1 or 2 Frequency of Binge Drinking: Weekly Financial Resource Strain: Not on file Food Insecurity: Not on file Transportation Needs: Not on file Physical Activity: Not on file Stress: Not on file Social Connections: Not on file Intimate Partner Violence: Unknown (02/23/2024) [place] Safety & Environment Fear of Current or Ex-Partner: Not on file Emotionally Abused: Not on file Physically Abused: Not on file Sexually Abused: Not on file Physically or Sexually Abused: Not on file Depression: Not at risk (03/09/2025) PHQ-2 PHQ-2 Score: 0 Housing Stability: Not on file Utilities: Not on file Health Literacy: Not on file Allergies: Allergies[3] Weight: 71.2kg Visit Vitals BP 113/77 Pulse 74 Resp 17 Ht 1.651 m (5' 5 ) Wt 70.3 kg (155 lb) LMP (LMP Unknown) SpO2 100% BMI 25.79 kg/m??? OB Status Hysterectomy Smoking Status Never BSA 1.8 m??? Meds: Medications Ordered Prior to Encounter[4] [...] , THYROID PEROXIDASE AB , BNP EKG: Encounter Date: 05/21/25 ECG 12 lead Result Value Ventricular Rate 69 Atrial Rate 69 DC Interval 162 QRS DURATION 80 QT Interval 404 QTC CALCULATION(BAZETT) 432 P Timberon 61 R-Timberon 56 T Wave Timberon 41 Impression Normal sinus rhythm Low voltage QRS Possible Lateral infarct , age undetermined Abnormal ECG When compared with ECG of 15-MAY-2013 09:47, No significant change was found Echo: February 23, 2024 Stress test: Coronary angiogram: @CATH@ Diagnostic Imagin-day Holter monitor Assessment and Plan: - Recurrence of atrial flutter - Past diagnosis of atrial fibrillation - History of (more content not included)... Normal [facility] NURSNOTEon 05-21-2025 NURSNOTE RN educated pt on d/ c instructions. This included: site care, limited physical activity, resume normal diet, future appointments, medications, and moderate sedation instructions. RN educated pt on when to notify physician and when to go to the hospital. RN educated pt on importance of not overusing stairs at this time and limited weight bearing of 5lbs. RN encouraged pt to voice any questions or concerns, and answered any questions or concerns if pt verbalized. Pt was wheeled off of unit with all of belongings. [facility] Orders Onlyon 05-14-2025 Orders Only [id number] Yamileth Hernandez 1970 Provider Department Center 05/14/2025 ENZO LIMON [facility] [place] [facility] Family History Problem Relation Age of Onset Dementia Mother Diabetes Mother Other Mother 59 Coronary artery disease Mother Atrial fibrillation Father Coronary artery disease Father Stroke Father 56 Heart attack Father 62 Family Status - Relation Status Age at Mother Alive Father Alive [facility] Letter (Out)on 05-01-2025 Letter (Out) [id number] Yamileth Hernandez 1970 Date Provider Department Center 05/01/2025 None-None [facility] [place] [facility] Family History Problem Relation Age of Onset Dementia Mother Diabetes Mother Other Mother 59 Coronary artery disease Mother Atrial fibrillation Father Coronary artery disease Father Stroke Father 56 Heart attack Father 62 Family Status - Relation Status Age at Mother Alive Father Alive [facility] Office Visiton 04-10-2025 Follow-up visit [id number] Yamileth Hernandez 1970 Provider Department Center 04/10/2025 HIRAM SUERO CARD [facility] Family History Problem Relation Age of Onset Dementia Mother Diabetes Mother Other Mother 59 Coronary artery disease Mother Atrial fibrillation Father Coronary artery disease Father Stroke Father 56 Heart attack Father 62 Family Status - Relation Status Age at Mother Alive Father Alive Level of Service:39530 DC OFFICE/OUTPATIENT NEW HIGH MDM 60 MINUTES Normal [facility] Orders Onlyon 04-10-2025 Orders Only [id number] DavidYamileth Dhaliwal 1970 F Date Provider Department Center 04/10/2025 Gregoria-KEELEY COREAS CARD [facility] Family History Problem Relation Age of Onset Dementia Mother Diabetes Mother Other Mother 59 Coronary artery disease Mother Atrial fibrillation Father Coronary artery disease Father Stroke Father 56 Heart attack Father 62 Family Status - Relation Status Age at Mother Alive Father Alive Normal [facility] Refillon 04-01-2025 Refill [id number] Yamileth Hernandez 1970 F Date Provider Department Center 04/01/2025 JERMAINE LARRY [facility]il [facility] Family History Problem Relation Age of Onset Dementia Mother Diabetes Mother Other Mother 59 Coronary artery disease Mother Atrial fibrillation Father Coronary artery disease Father Stroke Father 56 Heart attack Father 62 Family Status - Relation Status Age at Mother Alive Father Alive Reason for Visit and Comments: Med Change Request [411] Normal [facility] Follow-Upon 03-09-2025 Follow-Up [id number] Yamileth Hernandez 1970 F Date Provider Department Center 03/09/2025 TOMAS ROBERTO I [facility] Yamil Heal Family History Problem Relation Age of Onset Dementia Mother Diabetes Mother Other Mother 59 Coronary artery disease Mother Atrial fibrillation Father Coronary artery disease Father Stroke Father 56 Heart attack Father 62 Family Status - Relation Status Age at Mother Alive Father Alive Level of Service:24769 DC OFFICE/OUTPATIENT ESTABLISHED MOD MDM 30 MIN () Reason for Visit and Comments: Systemic lupus erythematosus, unspecified SLE type, unspeci [Other] Follow-up [492063] Normal [facility] Office Visiton 12-13-2024 Follow-up visit [id number] Yamileth Hernandez 1970 F Date Provider Department Center 12/13/2024 [id number] DONALD CARD [facility] Family History Problem Relation Age of Onset Dementia Mother Diabetes Mother Other Mother 59 Coronary artery disease Mother Atrial fibrillation Father Coronary artery disease Father Stroke Father 56 Heart attack Father 62 Family Status - Relation Status Age at Mother Alive Father Alive Level of Service:11520 DC OFFICE/OUTPATIENT ESTABLISHED LOW MDM 20 MIN Reason for Visit and Comments: 6 month follow up [Other] Atrial Fibrillation [80] Hyperlipidemia [182] Fatigue [46] - Fatigue due to Lupus flare up Palpitations [842485] - Occasionally Recent labs 08/27 and 12/26 [Other] Normal [facility] IGP,APTIMA HPV,AGE GDLNon AGE GDLN ACOG TESTING Note . [facility] Comment on above: TESTS RESULT FLAG UN ITS REF RANGE LAB Clinician Provided Cytology Information Source.............Vagina No. of containers..01 ThinPrep Vial Age Algo ACOG Sona... 30-65 01 FLAG LEGEND: L-Low Normal,H-High Normal,LL-Alert Low,HH-Alert High <-Panic Low,>-Panic High,A-Abnormal,AA-Critical Abnormal Performed at: 01 =[address] [phone] Jerrica Kam MD, HPV APTIMA Negative Negative [facility] Comment on above: This nucleic acid am plification test detects fourteen high- risk HPV types (16,18,31,33,35,39,45,51,52,56,58,59,66,68) without differentiation. Performed at: = - [address] [id number] Assembler Fluorescent Lights: Jerrica Kam MD, Phone: [phone] Performed at: - [address] [id number] Assembler Fluorescent Lights: Jerrica Kam MD, Phone: [phone] IGP, APTIMA HPV, RFX 16/18,[address] [facility] Comment on above: TESTS RESULT FLAG UN ITS REF RANGE LAB DIAGNOSIS: 02 NEGATIVE FOR INTRAEPITHELIAL LESION OR MALIGNANCY. Specimen adequacy: 02 Satisfactory for evaluation. No endocervical cells are present. This is consistent with a history of hysterectomy. Performed by: 02 Rosa Francis, Manager Discovery (ASCP) . 02 Note: Note 02 The [...] Low,>-Panic High,A-Abnormal,AA-Critical Abnormal Performed at: 02 [facility] [address] [place], [place] [phone] Jerrica Kam MD, [facility] Follow-Upon 10-19-2024 Follow-Up [id number] Yamileth Hernandez 1970 Date Provider Department Center 10/19/2024 TOMAS ORBERTO I [facility] Yamil Heal Family History Problem Relation Age of Onset Dementia Mother Diabetes Mother Other Mother 59 Coronary artery disease Mother Atrial fibrillation Father Coronary artery disease Father Stroke Father 56 Heart attack Father 62 Family Status - Relation Status Age at Mother Alive Father Alive Level of Service:80842 DC OFFICE/OUTPATIENT ESTABLISHED MOD MDM 30 MIN () Reason for Visit and Comments: Follow-up [925562] - Extreme tiredness Normal [facility] Refillon 08-09-2024 Refill [id number] Yamileth Hernandez 1970 Provider Department Center 08/09/2024 TOMAS ROBERTO I [facility] Family History Problem Relation Age of Onset Dementia Mother Diabetes Mother Other Mother 59 Coronary artery disease Mother Atrial fibrillation Father Coronary artery disease Father Stroke Father 56 Heart attack Father 62 Family Status - Relation Status Age at Mother Alive Father Alive Reason for Visit and Comments: Med Refill [757877] - Patient called for refill: triamcinolone (Kenalog) 0.1 % oral paste use in mouth or throat if needed for mucositis/ methylPREDNISolone (Medrol) 4 mg tablet take 1 tablet by mouth in morning take 1/2 tablet by mouth everyday as needed. Please advise. Thanks! Normal [facility] 36on 08-01-2024 36 Called and left deta iled message for patient Normal [facility] Refillon 08-01-2024 Refill [id number] Yamileth Hernandez 1970 Date Provider Department Center 08/01/2024 TOMAS ROBERTO I [facility] Family History Problem Relation Age of Onset Dementia Mother Diabetes Mother Other Mother 59 Coronary artery disease Mother Atrial fibrillation Father Coronary artery disease Father Stroke Father 56 Heart attack Father 62 Family Status - Relation Status Age at Mother Alive Father Alive Reason for Visit and Comments: Med Refill [535352] [facility] Orders Onlyon 07-28-2024 Orders Only [id number] Yamileth Hernandez 1970 F Date Provider Department Center 07/28/2024 TOMAS ROBERTO I [facility] Family History Problem Relation [...] triamcinolone. [facility] Telephoneon 07-26-2024 Telephone [id number] Yamileth Hernandez 1970 F Date Provider Department Center 07/26/2024 TOAMS ROBERTO I [facility] Family History Problem Relation Age of Onset Dementia Mother Diabetes Mother Other Mother 59 Coronary artery disease Mother Atrial fibrillation Father Coronary artery disease Father Stroke Father 56 Heart attack Father 62 Family Status - Relation Status Age at Mother Alive Father Alive Reason for Visit and Comments: Request For Order(s) [706] [facility] Cytology Cervical or vaginal smear or scraping studyon 11-16-[address] [facility] Ambulatory Visit Summaryon 0 04-07-2023 Ambulatory Visit Summary TEETEE HERNANDEZ :1970 Visit Date:04/07/2023 Ambulatory Visit Instructions Your Diagnosis IBS (irritable bowel syndrome) Epigastric abdominal pain Your Care Team Attending Physician - RAUDEL PUENTES, Joselo Llanes Primary Care Physician - Kyle PUENTES, Mariza This Is Your Medications List upadacitinib (Rinvoq [...] lupus erythematosus Varicose veins of legs Normal [facility] General Surgery Office/Clini [...] SARS-CoV-2 (COVID-19) mRNA-1273 vaccine 08/07/2022 Recorded SARSCoV2 mRNA(ubbxoevjg-aorc-hgvaxf) vac 01/01/2022 Recorded SARS-CoV-2 (COVID-19) mRNA-1273 vaccine 06/18/2021 Recorded 2023-02-26: TPV50 SARS-CoV-2 (COVID-19) mRNA-1273 vaccine 10/30/2020 Recorded SARS-CoV-2 (COVID-19) mRNA-1273 vaccine 10/02/2020 Recorded Normal [facility] Comment on above: Result Comment: Elec tronically Signed By: RAUDEL PUENTES, Joselo Barrera\Date and Time Signed: 04/07/23 14:01 EDT Reminderson 04-02-2023 Reminders - From: Cristal Gordon LPN To: GSN - Clinical; Sent: 04/02/2023 11:03:11 EDT Show up: 02/21/2033 07:00:00 EDT Subject: colonoscopy recall Due Date/Time: 03/24/2033 07:00:00 EDT Reminder/Recall Patient due for screening colonoscopy 03/24/2033. [facility] Pathology Noteon 03-29-2023 Pathology Note [id number]#1.00CD:127 [facility] Outside Colonoscopyon 2022 Outside Colonoscopy [id number]#1.00CD:127 [facility] Pre-Certification Formon Pre-Certification Form [id number]#1.00CD:127 [facility] Consent for Procedure/Surger yon 03-05-2023 Consent for Procedure/Surgery [id number]#1.00CD:127 [facility] Facesheeton 03-04-2023 Facesheet [id number]#1.00CD:127 [facility] Ambulatory Visit Summaryon 0 03-03-2023 Ambulatory [...] lupus erythematosus Varicose veins of legs Normal [facility] RAD - CT Reporton 03-03-2023 RAD - CT Report [id number]#1.00CD:127 Normal [facility] Physician Referralon 023 Physician Referral [id number]#1.00CD:127 Normal [facility] CT ABD/PELV W CONon 02-13-[address] [...] by: IDA SOTO Date: 2023-02-12 09:54 Normal [facility] QUANTIFERON TB GOLD PLUSon 0 02-07-2023 QuantiFERON Criteria Comment Normal [facility] Comment on above: Result Comment: Rehan [...] test. Performed By: #### Q NTTB #### [facility] [address] [place] [address] Dr. Jazmyn Saavedra QuantiFERON Incubation Incubation performed. Normal [facility] Comment on above: Performed By: #### Q NTTB #### [facility] [address] [place] [address] Dr. Jazmyn Saavedra QuantiFERON Mitogen Value 6.87 IU/mL Normal [facility] Comment on above: Performed By: #### Q NTTB #### [facility] [address] [place] [address] Dr. Jazmyn Saavedra QuantiFERON Nil Value 0.00 IU/mL Normal [facility] Comment on above: Performed By: #### Q NTTB #### [facility] [address] [place] [address] Dr. Jazmyn Saavedra QuantiFERON TB1 Ag Value 0.00 IU/mL Normal [facility] Comment on above: Performed By: #### Q NTTB #### [facility] [address] [place] [address] Dr. Jazmyn Saavedra QuantiFERON TB2 Ag Value 0.00 IU/mL Normal [facility] Comment on above: Performed By: #### Q NTTB #### [facility] [address] [place] [address] Dr. Jazmyn Saavedra QuantiFERON-TB Gold Plus Negative Normal Negative [facility] Comment on above: Result Comment: No r esponse to M tuberculosis antigens detected. Infection with M tuberculosis is unlikely, but high risk individuals should be considered for additional testing (ATS/IDSA/CDC Clinical Practice Guidelines, 2017). The reference range is an Antigen minus Nil result of <0.35 IU/mL. Chemiluminescence immunoassay methodology Performed By: #### Q NTTB #### [facility] [address] [place] [address] Dr. Jazmyn Saavedra HEP B COREon 02-06-2023 Hep B Core Ab, Tot Negative Normal Negative [facility] Comment on above: Performed By: #### S EDR #### [facility] [address] [place] [address] Dr. Jazmyn Saavedra HEP B SURFACE ANTIGEN SCREEN on 02-06-2023 HBsAg Screen Negative Normal Negative [facility] Comment on above: Performed By: #### H BSANS #### [facility] [address] [address] [address] Jazmyn Saavedra CBC AUTO DIFFon 02-05-2023 BASO # 0.0 103/ul Normal 0.0-0.1 [facility] Comment on above: Performed By: #### C BC #### [facility] [address] [place] [address] Dr. Jazmyn Saavedra Basophils/100 WBC (Bld) 0.5 % Normal 0.2-2.0 [facility] Comment on above: Performed By: #### C BC #### [facility] [address] [place] [address] Dr. Jazmyn Saavedra EO # 0.0 103/ul Normal 0.0-0.7 [facility] Comment on above: Performed By: #### C BC #### [facility] [address] [place] [address] Dr. Jazmyn Saavedra Eosinophils/100 WBC (Bld) 0.8 % Critically low 0.9-7.0 [facility] Comment on above: Performed By: #### C BC #### [facility] [address] [place] [address] Dr. Jazmyn Saavedra Erythrocyte distribution width (RBC) [Ratio] 13.2 % Normal 11.0-15.0 [facility] Comment on above: Performed By: #### C BC #### [facility] [address] [place] [address] Dr. Jazmyn Saavedra Hematocrit (Bld) [Volume fraction] 41.1 % Normal 36.0-48.0 [facility] Comment on above: Performed By: #### C BC #### [facility] [address] [place] [address] Dr. Jazmyn Saavedra Hemoglobin (Bld) [Mass/Vol] 13.4 g/dL Normal 12.0-16.0 [facility] Comment on above: Performed By: #### C BC #### [facility] [address] [place] [address] Dr. Jazmyn Saavedra IG # 0.01 10e3/ul Normal 0.00-0.03 [facility] Comment on above: Performed By: #### C BC #### [facility] [address] [place] [address] Dr. Jazmyn Saavedra IG % 0.3 % Normal 0.0-0.5 [facility] Comment on above: Performed By: #### C BC #### [facility] [address] [place] [address] Dr. Jazmyn Saavedra LYMPH # 1.2 103/ul Normal 1.2-3.8 [facility] Comment on above: Performed By: #### C BC #### [facility] [address] [place] [address] Dr. Jazmyn Saavedra Lymphocytes/100 WBC (Bld) 31.9 % Normal 20.5-60.0 [facility] Comment on above: Performed By: #### C BC #### [facility] [address] [place] [address] Dr. Jazmyn Saavedra MANUAL DIFF REQ NO Normal [facility] Comment on above: Performed By: #### C BC #### [facility] [address] [place] [address] Dr. Jazmyn Saavedra MCH (RBC) [Entitic mass] 30.6 pg Normal 26.7-34.0 [facility] Comment on above: Performed By: #### C BC #### [facility] [address] [place] [address] Dr. Jazmyn Saavedra MCHC (RBC) [Mass/Vol] 32.6 g/dL Normal 29.9-35.2 [facility] Comment on above: Performed By: #### C BC #### [facility] [address] [place] [address] Dr. Jazmyn Saavedra MCV (RBC) [Entitic vol] 93.8 fL Normal 81.0-99.0 [facility] Comment on above: Performed By: #### C BC #### [facility] [address] [place] [address] Dr. Jazmyn Saavedra MONO # 0.5 103/ul Normal 0.3-0.8 [facility] Comment on above: Performed By: #### C BC #### [facility] [address] [place] [address] Dr. Jazmyn Saavedra Monocytes/100 WBC (Bld) 14.1 % Critically high 1.7-12.0 [facility] Comment on above: Performed By: #### C BC #### [facility] [address] [place] [address] Dr. Jazmyn Saavedra NEUT # 1.9 103/ul Normal 1.4-6.5 [facility] Comment on above: Performed By: #### C BC #### [facility] [address] [place] [address] Dr. Jazmyn Saavedra Neutrophils/100 WBC (Bld) 52.4 % Normal 43.0-75.0 [facility] Comment on above: Performed By: #### C BC #### [facility] [address] [place] [address] Dr. Jazmyn Saavedra Platelet mean volume (Bld) [Entitic vol] 9.4 fL Critically low 9.5-13.5 [facility] Comment on above: Performed By: #### C BC #### [facility] [address] [place] [address] Dr. Jazmyn Saavedra PLT 342 103/ul Normal 150-450 [facility] Comment on above: Performed By: #### C BC #### [facility] [address] [place] [address] Dr. Jazmyn Saavedra RBC 4.38 106/ul Normal 4.20-5.40 [facility] Comment on above: Performed By: #### C BC #### [facility] [address] [place] [address] Dr. Jazmyn Saavedra WBC 3.7 103/ul Critically low 4.0-11.0 [facility] Comment on above: Performed By: #### C BC #### [facility] [address] [place] [address] Dr. Jazmyn Saavedra FREE THYROXINE INDEX T7on FTI 3.20 Normal 1.30-4.50 [facility] Comment on above: Performed By: #### S EDR #### [facility] [address] [place] [address] Dr. Jazmyn Saavedra T3U 36.0 % Normal 30.0-39.0 [facility] Comment on above: Performed By: #### S EDR #### [facility] [address] [place] [address] Dr. Jazmyn Saavedra T4 [Mass/Vol] 8.90 ug/dL Normal 4.80-13.90 [facility] Comment on above: Performed By: #### S EDR #### [facility] [address] [place] [address] Dr. Jazmyn Saavedra GLYCOHEMOGLOBIN A1Con 2022 ADA RECOMMENDATION SEE BELOW Normal [facility] Comment on above: Result Comment: ADA RECOMMENDED LIMIT 4.0 - 6.0 ADA THERAPEUTIC TARGET < 7.0 ACTION SUGGESTED > 7.0 Performed By: #### S EDR #### [facility] [address] [place] [address] Dr. Jazmyn Saavedra Glucose [Mass/Vol] 123 mg/dL Normal [facility] Comment on above: Performed By: #### S EDR #### [facility] [address] [place] [address] Dr. Jazmyn Saavedra HbA1c (Bld) [Mass fraction] 5.9 % Normal 4.5-6.2 [facility] Comment on above: Performed By: #### S EDR #### [facility] [address] [place] [address] Dr. Jazmyn Saavedra LIPID PROFILEon 02-05-2023 CHOL-HDL RATIO NORM SEE BELOW Normal [facility] Comment on above: Result Comment: 3.3 - 4.4 LOW RISK 4.4 - 7.1 AVERAGE RISK 7.1 - 11.0 MODERATE RISK >11.0 HIGH RISK Performed By: #### S EDR #### [facility] [address] [address] [address] Jazmyn Saavedra Cholesterol [Mass/Vol] 256 mg/dL Critically high <=200 [facility] Comment on above: Performed By: #### S EDR #### [facility] [address] [address] [address] Jazmyn Saavedra Cholesterol in HDL [Mass/Vol] 108 mg/dL Critically high 40-60 [facility] Comment on above: Performed By: #### S EDR #### [facility] [address] [address] [address] Jazmyn Saavedra Cholesterol in LDL [Mass/Vol] 139.4 mg/dL Normal [facility] Comment on above: Performed By: #### S EDR #### [facility] [address] [address] [address] Jazmyn Saavedra Cholesterol.total/ Cholesterol in HDL [Mass ratio] 2.4 {ratio} Normal [facility] Comment on above: Performed By: #### S EDR #### [facility] [address] [address] [address] Jazmyn Saavedra HDL NORMAL > or = 60 mg/dl - LO W CARDIOVASCULAR RISK <40 mg/dl - HIGH CARDIOVASCULAR RISK Normal [facility] Comment on above: Performed By: #### S EDR #### [facility] [address] [address] [address] Jazmyn Saavedra LDL CALC NORMAL SEE BELOW Normal [facility] Comment on above: Result Comment: <100 mg/dl OPTIMAL 100 - 129 mg/dl NEAR OR ABOVE OPTIMAL 130 - 159 mg/dl BORDERLINE HIGH 160 - 189 mg/dl HIGH >190 mg/dl VERY HIGH Performed By: #### S EDR #### [facility] [address] [address] [address] Jazmyn Saavedra Triglyceride [Mass/Vol] 43 mg/dL Normal <=150 [facility] Comment on above: Performed By: #### S EDR #### [facility] [address] [address] [address] Jazmyn Saavedra VLDL CALC 8.6 mg/dL Normal [facility] Comment on above: Performed By: #### S EDR #### [facility] [address] [address] [address] Jazmyn Saavedra PROF 14(COMP METB)on 023 Albumin [Mass/Vol] 4.0 g/dL Normal 3.4-5.0 [facility] Comment on above: Performed By: #### T 7, CMP, LIPID, TSH #### [facility] [address] [place] [address] Dr. Jazmyn Saavedra Albumin/Globulin [Mass ratio] 0.9 {ratio} Normal [facility] Comment on above: Performed By: #### T 7, CMP, LIPID, TSH #### [facility] [address] [place] [address] Dr. Jazmyn Saavedra ALP [Catalytic activity/Vol] 57 U/L Normal 46-116 [facility] Comment on above: Performed By: #### T 7, CMP, LIPID, TSH #### [facility] [address] [address] [address] Jazmyn Saavedra ALT [Catalytic activity/Vol] 23 U/L Normal 14-59 [facility] Comment on above: Performed By: #### T 7, CMP, LIPID, TSH #### [facility] [address] [address] [address] Jazmyn Saavedra Anion gap [Moles/Vol] 13.8 mmol/L Normal [facility] Comment on above: Performed By: #### T 7, CMP, LIPID, TSH #### [facility] [address] [address] [address] Jazmyn Saavedra AST [Catalytic activity/Vol] 23 U/L Normal 15-37 [facility] Comment on above: Performed By: #### T 7, CMP, LIPID, TSH #### [facility] [address] [place] [address] Dr. Jazmyn Saavedra Bilirubin [Mass/Vol] 0.6 mg/dL Normal 0.2-1.0 [facility] Comment on above: Performed By: #### T 7, CMP, LIPID, TSH #### [facility] [address] [address] [address] Jazmyn Saavedra Calcium [Mass/Vol] 9.6 mg/dL Normal 8.5-10.1 [facility] Comment on above: Performed By: #### T 7, CMP, LIPID, TSH #### [facility] [address] [address] [address] Jazmyn Saavedra Chloride [Moles/Vol] 100 mmol/L Normal 98-107 [facility] Comment on above: Performed By: #### T 7, CMP, LIPID, TSH #### [facility] [address] [address] [address] Jazmyn Saavedra CO2 [Moles/Vol] 29.9 mmol/L Normal 21.0-32.[address] [facility] Comment on above: Performed By: #### T 7, CMP, LIPID, TSH #### [facility] [address] [place] [address] Dr. Jazmyn Saavedra Creatinine [Mass/Vol] 0.89 mg/dL Normal 0.55-1.02 [facility] Comment on above: Performed By: #### T 7, CMP, LIPID, TSH #### [facility] [address] [place] [address] Dr. Jazmyn Saavedra EGFR-AF [place] ISLANDER >60 Normal >=[address] [facility] Comment on above: Performed By: #### T 7, CMP, LIPID, TSH #### [facility] [address] [place] [address] Dr. Jazmyn Saavedra EGFR-NON AF [place]ER >60 Normal >=60 [facility] Comment on above: Performed By: #### T 7, CMP, LIPID, TSH #### [facility] [address] [address] [address] Jazmyn Saavedra Globulin (S) [Mass/Vol] 4.4 g/dL Normal [facility] Comment on above: Performed By: #### T 7, CMP, LIPID, TSH #### [facility] [address] [address] [address] Jazmyn Saavedra Glucose [Mass/Vol] 89 mg/dL Normal 74-106 [facility] Comment on above: Performed By: #### T 7, CMP, LIPID, TSH #### [facility] [address] [place] [address] Dr. Jazmyn Saavedra Potassium [Moles/Vol] 3.7 mmol/L Normal 3.5-5.1 [facility] Comment on above: Performed By: #### T 7, CMP, LIPID, TSH #### [facility] [address] [place] [address] Dr. Jazmyn Saavedra Protein [Mass/Vol] 8.4 g/dL Critically high 6.4-8.2 [facility] Comment on above: Performed By: #### T 7, CMP, LIPID, TSH #### [facility] [address] [place] [address] Dr. Jazmyn Saavedra Sodium [Moles/Vol] 140 mmol/L Normal 136-145 [facility] Comment on above: Performed By: #### T 7, CMP, LIPID, TSH #### [facility] [address] [place] [address] Dr. Jazmyn Saavedra Urea nitrogen [Mass/Vol] 17.0 mg/dL Normal 7.0-18.0 [facility] Comment on above: Performed By: #### T 7, CMP, LIPID, TSH #### [facility] [address] [place] [address] Dr. Jazmyn Saavedra Urea nitrogen/Creatinin e [Mass ratio] 19.1 mg/mg Normal [facility] Comment on above: Performed By: #### T 7, CMP, LIPID, TSH #### [facility] [address] [place] [address] Dr. Jazmyn Saavedra TSHon 02-05-2023 TSH 0.984 uIU/mL Normal 0.358-3.740 [facility] Comment on above: Performed By: #### S EDR #### [facility] [address] [place] [address] Dr. Jazmyn Saavedra PAP ACOG PANEL 2: 30 to 65on 10-07-2022 . . Normal [facility] Comment on above: Result Comment: Perf ormed at: [facility] Performed By: #### S EDR #### [facility] [address] [address] [address] Jazmyn Saavedra Age Gdln ACOG Testing 30-65 Normal [facility] Comment on above: Performed By: #### S EDR #### [facility] [address] [address] [address] Jazmyn Saavedra DIAGNOSIS: Comment Normal [facility] Comment on above: Result Comment: NEGA TIVE FOR INTRAEPITHELIAL LESION OR MALIGNANCY. Performed at: [facility] Performed By: #### S EDR #### [facility] [address] [address] [address] Jazmyn Saavedra HPV Aptima Negative Normal Negative [facility] Comment on above: Result Comment: This nucleic acid amplification test detects fourteen high-risk HPV types (16,18,31,33,35,39,45,51,52,56,58,59,66,68) without differentiation. Performed at: =G Performed By: #### S EDR #### [facility] [address] [address] [address] Jazmyn Saavedra HPV Genotype Reflex Comment Normal [facility] Comment on above: Result Comment: Crit eria not met, HPV Genotype not performed. Performed at: [facility] Performed By: #### S EDR #### [facility] [address] [place] [address] Dr. Jazmyn Saavedra Methodology: Comment Normal [facility] Comment on above: Result Comment: This liquid based ThinPrep(R) pap test was screened with the use of an image guided system. Performed at: [facility] Performed By: #### S EDR #### [facility] [address] [address] [address] Jazmyn Saavedra Note: Comment Normal [facility] Comment on above: Result Comment: The [...] WB Performed By: #### S EDR #### [facility] [address] [address] [address] Jazmyn Saavedra Performed by: Comment Normal [facility] Comment on above: Result Comment: Daryl Calohun, Manager [employer] (ASCP) Performed at: [facility] Performed By: #### S EDR #### [facility] [address] [address] [address] Jazmyn Saavedra Specimen adequacy: Comment Normal [facility] Comment on above: Result Comment: Sati sfactory for evaluation. Endocervical component may not be distinguished in cases of atrophy. Performed at: [facility] Performed By: #### S EDR #### [facility] [address] [address] [address] Jazmyn Saavedra XR DEXA BONE DENSITYon [...] by: GILBERT GEORGE Date: 2022-08-28 08:47 Normal [facility] CBC AUTO DIFFon 08-25-2022 BASO # 0.0 103/ul Normal 0.0-0.1 [facility] Comment on above: Performed By: #### S EDR #### [facility] [address] [address] [address] Jazmyn Saavedra Basophils/100 WBC (Bld) 0.5 % Normal 0.2-2.0 [facility] Comment on above: Performed By: #### S EDR #### [facility] [address] [place] [address] Dr. Jazmyn Saavedra EO # 0.1 103/ul Normal 0.0-0.7 [facility] Comment on above: Performed By: #### S EDR #### [facility] [address] [place] [address] Dr. Jazmyn Saavedra Eosinophils/100 WBC (Bld) 1.2 % Normal 0.9-7.0 [facility] Comment on above: Performed By: #### S EDR #### [facility] [address] [place] [address] Dr. Jazmyn Saavedra Erythrocyte distribution width (RBC) [Ratio] 13.2 % Normal 11.0-15.0 [facility] Comment on above: Performed By: #### S EDR #### [facility] [address] [place] [address] Dr. Jazmyn Saavedra Hematocrit (Bld) [Volume fraction] 38.4 % Normal 36.0-48.0 [facility] Comment on above: Performed By: #### S EDR #### [facility] [address] [place] [address] Dr. Jazmyn Saavedra Hemoglobin (Bld) [Mass/Vol] 12.6 g/dL Normal 12.0-16.0 [facility] Comment on above: Performed By: #### S EDR #### [facility] [address] [place] [address] Dr. Jazmyn Saavedra IG # 0.01 10e3/ul Normal 0.00-0.03 [facility] Comment on above: Performed By: #### S EDR #### [facility] [address] [place] [address] Dr. Jazmyn Saavedra IG % 0.2 % Normal 0.0-0.5 [facility] Comment on above: Performed By: #### S EDR #### [facility] [address] [place] [address] Dr. Jazmyn Saavedra LYMPH # 1.7 103/ul Normal 1.2-3.8 [facility] Comment on above: Performed By: #### S EDR #### [facility] [address] [address] [address] Jazmyn Saavedra Lymphocytes/100 WBC (Bld) 40.8 % Normal 20.5-60.0 [facility] Comment on above: Performed By: #### S EDR #### [facility] [address] [place] [address] Dr. Jazmyn Saavedra MANUAL DIFF REQ NO Normal [facility] Comment on above: Performed By: #### S EDR #### [facility] [address] [address] [address] Jazmyn Saavedra MCH (RBC) [Entitic mass] 31.0 pg Normal 26.7-34.0 [facility] Comment on above: Performed By: #### S EDR #### [facility] [address] [place] [address] Dr. Jazmyn Saavedra MCHC (RBC) [Mass/Vol] 32.8 g/dL Normal 29.9-35.2 [facility] Comment on above: Performed By: #### S EDR #### [facility] [address] [place] [address] Dr. Jazmyn Saavedra MCV (RBC) [Entitic vol] 94.3 fL Normal 81.0-99.0 [facility] Comment on above: Performed By: #### S EDR #### [facility] [address] [place] [address] Dr. Jazmyn Saavedra MONO # 0.5 103/ul Normal 0.3-0.8 [facility] Comment on above: Performed By: #### S EDR #### [facility] [address] [place] [address] Dr. Jazmyn Saavedra Monocytes/100 WBC (Bld) 11.9 % Normal 1.7-12.0 [facility] Comment on above: Performed By: #### S EDR #### [facility] [address] [place] [address] Dr. Jazmyn Saavedra NEUT # 1.9 103/ul Normal 1.4-6.5 [facility] Comment on above: Performed By: #### S EDR #### [facility] [address] [address] [address] Jazmyn Saavedra Neutrophils/100 WBC (Bld) 45.4 % Normal 43.0-75.0 [facility] Comment on above: Performed By: #### S EDR #### [facility] [address] [address] [address] Jazmyn Saavedra Platelet mean volume (Bld) [Entitic vol] 9.3 fL Critically low 9.5-13.5 [facility] Comment on above: Performed By: #### S EDR #### [facility] [address] [address] [address] Jazmyn Saavedra PLT 309 103/ul Normal 150-450 [facility] Comment on above: Performed By: #### S EDR #### [facility] [address] [address] [address] Jazmyn Saavedra RBC 4.07 106/ul Critically low 4.20-5.40 [facility] Comment on above: Performed By: #### S EDR #### [facility] [address] [address] [address] Jazmyn Saavedra WBC 4.2 103/ul Normal 4.0-11.0 [facility] Comment on above: Performed By: #### S EDR #### [facility] [address] [place] [address] Dr. Jazmyn Saavedra CRPon 08-25-2022 CRP [Mass/Vol] mg/L Normal <=1.0 [facility] Comment on above: Performed By: #### C RP, CMP, LIPID #### [facility] [address] [place] [address] Dr. Jazmyn Saavedra LIPID PROFILEon 08-25-2022 CHOL-HDL RATIO NORM SEE BELOW Normal [facility] Comment on above: Result Comment: 3.3 - 4.4 LOW RISK 4.4 - 7.1 AVERAGE RISK 7.1 - 11.0 MODERATE RISK >11.0 HIGH RISK Performed By: #### C RP, CMP, LIPID #### [facility] [address] [place] [address] Dr. Jazmyn Saavedra Cholesterol [Mass/Vol] 251 mg/dL Critically high <=200 [facility] Comment on above: Performed By: #### C RP, CMP, LIPID #### [facility] [address] [address] [address] Jazmyn Saavedra Cholesterol in HDL [Mass/Vol] 102 mg/dL Critically high 40-60 [facility] Comment on above: Performed By: #### C RP, CMP, LIPID #### [facility] [address] [address] [address] Jazmyn Saavedra Cholesterol in LDL [Mass/Vol] 135.0 mg/dL Normal [facility] Comment on above: Performed By: #### C RP, CMP, LIPID #### [facility] [address] [place] [address] Dr. Jazmyn Saavedra Cholesterol.total/ Cholesterol in HDL [Mass ratio] 2.5 {ratio} Normal [facility] Comment on above: Performed By: #### C RP, CMP, LIPID #### [facility] [address] [address] [address] Jazmyn Saavedra HDL NORMAL > or = 60 mg/dl - LO W CARDIOVASCULAR RISK <40 mg/dl - HIGH CARDIOVASCULAR RISK Normal [facility] Comment on above: Performed By: #### C RP, CMP, LIPID #### [facility] [address] [place] [address] Dr. Jazmyn Saavedra LDL CALC NORMAL SEE BELOW Normal [facility] Comment on above: Result Comment: <100 mg/dl OPTIMAL 100 - 129 mg/dl NEAR OR ABOVE OPTIMAL 130 - 159 mg/dl BORDERLINE HIGH 160 - 189 mg/dl HIGH >190 mg/dl VERY HIGH Performed By: #### C RP, CMP, LIPID #### [facility] [address] [address] [address] Jazmyn Saavedra Triglyceride [Mass/Vol] 70 mg/dL Normal <=150 [facility] Comment on above: Performed By: #### C RP, CMP, LIPID #### [facility] [address] [address] [address] Jazmyn Saavedra VLDL CALC 14.0 mg/dL Normal [facility] Comment on above: Performed By: #### C RP, CMP, LIPID #### [facility] [address] [address] [address] Jazmyn Saavedra PROF 14(COMP METB)on 022 Albumin [Mass/Vol] 3.9 g/dL Normal 3.4-5.0 [facility] Comment on above: Performed By: #### C RP, CMP, LIPID #### [facility] [address] [address] [address] Jazmyn Saavedra Albumin/Globulin [Mass ratio] 1.0 {ratio} Normal [facility] Comment on above: Performed By: #### C RP, CMP, LIPID #### [facility] [address] [address] [address] Jazmyn Saavedra ALP [Catalytic activity/Vol] 49 U/L Normal 46-116 [facility] Comment on above: Performed By: #### C RP, CMP, LIPID #### [facility] [address] [address] [address] Jazmyn Saavedra ALT [Catalytic activity/Vol] 17 U/L Normal 14-59 [facility] Comment on above: Performed By: #### C RP, CMP, LIPID #### [facility] [address] [address] [address] Jazmyn Saavedra Anion gap [Moles/Vol] 10.1 mmol/L Normal [facility] Comment on above: Performed By: #### C RP, CMP, LIPID #### [facility] [address] [address] [address] Jazmyn Saavedra AST [Catalytic activity/Vol] 19 U/L Normal 15-37 [facility] Comment on above: Performed By: #### C RP, CMP, LIPID #### [facility] [address] [address] [address] Jazmyn Saavedra Bilirubin [Mass/Vol] 0.5 mg/dL Normal 0.2-1.0 [facility] Comment on above: Performed By: #### C RP, CMP, LIPID #### [facility] [address] [address] [address] Jazmyn Saavedra Calcium [Mass/Vol] 9.3 mg/dL Normal 8.5-10.1 [facility] Comment on above: Performed By: #### C RP, CMP, LIPID #### [facility] [address] [place] [address] Dr. Jazmyn Saavedra Chloride [Moles/Vol] 103 mmol/L Normal 98-107 [facility] Comment on above: Performed By: #### C RP, CMP, LIPID #### [facility] [address] [place] [address] Dr. Jazmyn Saavedra CO2 [Moles/Vol] 30.1 mmol/L Normal 21.0-32.0 [facility] Comment on above: Performed By: #### C RP, CMP, LIPID #### [facility] [address] [place] [address] Dr. Jazmyn Saavedra Creatinine [Mass/Vol] 0.80 mg/dL Normal 0.55-1.02 [facility] Comment on above: Performed By: #### C RP, CMP, LIPID #### [facility] [address] [place] [address] Dr. Jazmyn Saavedra EGFR-AF [place] ISLANDER >60 Normal >=[address] [facility] Comment on above: Performed By: #### C RP, CMP, LIPID #### [facility] [address] [place] [address] Dr. Jazmyn Saavedra EGFR-NON AF [place] >60 Normal >=60 [facility] Comment on above: Performed By: #### C RP, CMP, LIPID #### [facility] [address] [place] [address] Dr. Jazmyn Saavedra Globulin (S) [Mass/Vol] 4.1 g/dL Normal [facility] Comment on above: Performed By: #### C RP, CMP, LIPID #### [facility] [address] [place] [address] Dr. Jazmyn Saavedra Glucose [Mass/Vol] 92 mg/dL Normal 74-106 [facility] Comment on above: Performed By: #### C RP, CMP, LIPID #### [facility] [address] [place] [address] Dr. Jazmyn Saavedra Potassium [Moles/Vol] 4.2 mmol/L Normal 3.5-5.1 [facility] Comment on above: Performed By: #### C RP, CMP, LIPID #### [facility] [address] [place] [address] Dr. Jazmyn Saavedra Protein [Mass/Vol] 8.0 g/dL Normal 6.4-8.2 [facility] Comment on above: Performed By: #### C RP, CMP, LIPID #### [facility] [address] [place] [address] Dr. Jazmyn Saavedra Sodium [Moles/Vol] 139 mmol/L Normal 136-145 [facility] Comment on above: Performed By: #### C RP, CMP, LIPID #### [facility] [address] [place] [address] Dr. Jazmyn Saavedra Urea nitrogen [Mass/Vol] 20.0 mg/dL Critically high 7.0-18.0 [facility] Comment on above: Performed By: #### C RP, CMP, LIPID #### [facility] [address] [place] [address] Dr. Jazmyn Saavedra Urea nitrogen/Creatinin e [Mass ratio] 25.0 mg/mg Normal [facility] Comment on above: Performed By: #### C RP, CMP, LIPID #### [facility] [address] [place] [address] Dr. Jazmyn Saavedra SED RATE [facility] 2021 SED RATE 47 mm/hr Critically high <=30 [facility] Comment on above: Performed By: #### S EDR #### [facility] [address] [place] [address] Dr. Jazmyn Saavedra ASYMPTOMATIC COVID-19 ANTIGE Non 05-18-2022 EUA Statement SEE BELOW Normal [facility] Comment on above: Result Comment: This test [...] sooner. Performed By: #### S EDR #### [facility] [address] [place] [address] Dr. Jazmyn Saavedra SARS-CoV-2 (COVID-19) RNA NILES+probe Ql (Unsp spec) Positive Critically abnormal NEGATIVE [facility] Comment on above: Result Comment: SARS -CoV-2 antigen present; does not rule out coinfection with other pathogens. Performed By: #### S EDR #### [facility] [address] [place] [address] Dr. Jazmyn Saavedra Covid-19 PCR (CVDTB)on SARS-CoV-2 (COVID-19) RNA NILES+probe Ql (Unsp spec) Detected Critically abnormal NOT DETECTED [facility] Comment on above: Result Comment: This test is not yet approved or cleared by the [place] FDA. When there are no FDA-approved or cleared tests available, and other criteria are met, FDA can make tests available under an emergency access mechanism called an Emergency Use Authorization (EUA). The EUA for this test is supported by the [place] of Health and Human Service's declaration that [...] used). Performed By: #### C VDTBH #### [facility] [address] [place] [address] Dr. Jazmyn BARLOW MULTI-CANCER PANELon 02-12-2021 RESULT Results to be mailed directly to physician's office by reference lab. Normal [facility] Comment on above: Result Comment: Test performed by [facility] [address] [place] [address] [phone] No result expected. For billing and tracking purposes only. Performed By: #### 3 [id number] #### [facility] [address] Vital Signs Date Time Vital Sign Value Performing Clinician Facility 11-23-2024 09:55-0500 Body mass index (BMI) [Ratio] 25.63 kg/m2 Easton Jassi DO Work Phone: [facility] 11-23-2024 09:55-0500 Body weight 69.85 kg Easton Jassi DO Work Phone: [facility] 11-23-2024 09:55-0500 Diastolic blood pressure 72 mm[Hg] Easton Jassi DO Work Phone: [facility] 11-23-2024 09:55-0500 Systolic blood pressure 124 mm[Hg] Easton Jassi DO Work Phone: [facility] 11-16-2023 11:39-0500 Body mass index (BMI) [Ratio] 24.96 kg/m2 Easton Jassi DO Work Phone: [facility] 11-16-2023 11:39-0500 Body weight 68.04 kg Easton Jassi DO Work Phone: [facility] 11-16-2023 11:39-0500 Diastolic blood pressure 72 mm[Hg] Easton Jassi DO Work Phone: [facility] 11-16-2023 11:39-0500 Systolic blood pressure 118 mm[Hg] Easton Jassi DO Work Phone: [facility] 03-03-2023 14:35-0400 Blood Pressure Location Joselo STARKS [facility] 03-03-2023 14:35-0400 Diastolic blood pressure 68 mm[Hg] Joselo STARKS [facility] 03-03-2023 14:35-0400 Heart rate 68 /min Joselo STARKS [facility] 03-03-2023 14:35-0400 Respiratory rate 16 /min Joselo STARKS [facility] 03-03-2023 14:35-0400 Systolic blood pressure 114 mm[Hg] Joselo STARKS [facility] Encounters Encounter Date Encounter Type Care Provider Facility Start: 06-18-2025 End: 06-18-2025 ambulatory JANELLE CAMPOS [facility] Start: 05-21-2025 End: 05-21-[address] [facility] Start: 04-10-2025 End: 04-10-[address] [facility] Start: 03-09-2025 End: 03-09-2025 ambulatory TOMAS CLINTON [facility] Start: 12-13-2024 ambulatory TODD DONALD [facility] Start: 11-23-2024 End: 11-23-2024 Bamboo [...] osteoporosis Start: 10-19-2024 End: 10-19-2024 ambulatory TOMAS CLINTON [facility] Start: 11-16-2023 End: 11-16-2023 Postop follow up visit related to original px Easton Keene DO Work Phone: [facility] Comment on above: Encounter for repeat Pap smear due to previous insuff cervical cells Start: 04-07-2023 End: 04-08-2023 ambulatory [facility] STAR[facility] Start: 04-07-2023 End: 04-07-2023 Patient encounter procedure Joselo R NILL [facility] Start: 03-24-2023 End: 03-25-2023 ambulatory Joselo R GHISLAINEL Facility:CD:[id number] Start: 03-03-2023 End: 03-04-2023 ambulatory Mariza Wright Facility:[facility] Start: 03-03-2023 End: 03-03-2023 Patient encounter procedure Joselo R NILL [facility] [place] Start: 02-18-2023 ambulatory Mariza Wright Facility:[facility] Start: 02-12-2023 Encounter for genera l adult medical examination without abnormal findings MARIZA WRIGHT [facility] Start: 02-12-2023 End: 02-13-2023 ambulatory MARIZA [...] Start: 08-25-2022 End: 08-26-[address] DOCTOR PAZ Facility:[facility] Start: 08-07-2022 End: 08-08-2022 ambulatory MARIZA WRIGHT Facility:[facility] Start: 05-18-2022 End: 05-18-2022 ambulatory JACQUI BAUMANN Facility:[facility] Start: 05-12-2022 End: 05-12-2022 ambulatory JACQUI MEZAERLY Facility:[facility] Procedures Date Procedure Procedure Detail Performing Clinician Start: 11-23-2024 IGP,APTIMA HPV,AGE GDLN [facility] Work Phone: Start: 11-16-2023 Microscopic observation [Identifier] in Cervix by Cyto stain [facility] Work Phone: Start: 11-16-2023 Cytp cerv/vag auto thin layer prep mnl screen [facility] Work Phone: Start: 03-24-2023 Colonoscopy [facility] Work Phone: Start: 03-24-2023 Colonoscopy Joselo NILL Start: 03-24-2023 Esophagogastroduodenoscopy Joselo NILL Start: 09-23-2022 Microscopic observation [Identifier] in Cervix by Cyto stain [facility] Work Phone: Start: 07-24-2015 Colonoscopy Joselo NILL Start: 02-01-2007 Colonoscopy Joselo NILL Bilateral mastectomy Joselo NILL Biopsy of breast Joselo NIL L section Joselo NIL L Excision of cervical intervertebral disc Joselo NILL Excision of lymph node Tony flori NILL Comment on above: left inguinal Excision of salivary gland M marco NILL Comment on above: x2 Granuloma (morpholog ic abnormality) Joselo NILL Comment on above: x 2 History of radiofreq uency ablation operation for arrhythmia Joselo RAUDEL Total abdominal hyst erectomy with bilateral salpingo-oophorectomy Joselo RAUDEL Plan of Treatment Date Care Activity Detail Author Start: 03-24-2033 Screening for malignant neoplasm of colon [facility] Start: 11-16-2028 Screening for malignant neoplasm of cervix [facility] Start: 09-23-2027 Screening for malignant neoplasm of cervix [facility] Start: 11-28-2025 End: 11-28-2025 Patient encounter procedure 11/28/2025 1:00 PM EST Office Visit [facility] [address] [place] [address] Easton Keene, DO [address] [place] [address] [facility] Start: 01-27-2025 Screening for malignant neoplasm of colon FIT-DNA [facility] Start: 11-20-2024 End: 11-20-2024 Patient encounter procedure 11/20/2024 4:00 PM EST Office Visit [facility] [address] [place] [id number] Easton Keene, DO [address] [place] [address] [facility] Start: 06-04-2023 Influenza vaccination Influenza Vacc ine (#1) [facility] Start: 2008 Screening for malignant neoplasm of breast Mammogram [facility] Start: 1968 Screening for malignant neoplasm of colon [facility] THIN PREP TIS PAP AN D HR HPV DNA THIN PREP TIS PAP AND HR HPV DNA Pathology and Cytology Routine Well woman exam with routine gynecological exam Ordered: 11/23/[address] [facility] Work Phone: Comment on above: Ordered: 11/23/2024 Immunizations Immunization Date Immunization Notes Care Provider Fa cility 08-07-2022 SARS-CoV-2 (COVID-19 ) mRNA-1273 vaccine Joselo STARKS [facility] 01-01-2022 SARS-CoV-2 mRNA (mvqmixvmwtd-tbhu-ueubl se) vaccine Joselo SCANLONL [facility] 06-18-2021 SARS-CoV-2 (COVID-19 ) mRNA-1273 vaccine Joselo SCANLONL [facility] Comment on above: Result Comment: 2022: [id number] 10-30-2020 SARS-CoV-2 (COVID-19 ) mRNA-1273 vaccine Joselo SCANLONL [facility] 10-02-2020 SARS-CoV-2 (COVID-19 ) mRNA-1273 vaccine Joselo NILL [facility] Payers Date Payer Category Payer Private Health Insurance [id number] 2022 [facility] BCBS [id number] 2022 Unknown BCBS BCBS [id number] 2022-Present [phone] [address] [place] [address] [id number] 2022 Unknown [id number] 2019 Unknown [id number] 1968 Unknown [id number] [id number]. 593 1968 Unknown [id number] 2.16.840.1.259895.3.579.2. 593 1968 Unknown [id number] 2.16.840.1.447021.3.579.2. 593 1968 Unknown [id number] 2.16.840.1.990783.3.579.2. 593 1968 Unknown [id number] 2.16.840.1.344870.3.579.2. 593 1968 Unknown [id number] 2.16.840.1.992057.3.579.2. 593 1968 Unknown [id number] 2.16.840.1.806244.3.579.2. 593 1968 Unknown [id number] 2.16.840.1.135681.3.579.2. 593 1968 Unknown [id number] 2.16.840.1.489054.3.579.2. 593 1968 Unknown [id number] 2.16.840.1.544291.3.579.2. 727 1968 Unknown [id number] 2.16.840.1.865657.3.579.2. 727 1968 Unknown [id number] 2.16.840.1.130643.3.579.2. 727 1968 Unknown [id number] 2.16.840.1.339128.3.579.2. 1259 1959 Self-pay [id number] Unknown [id number] [id number]. 593 Social History Date Type Detail Facility Start: 03-03-2023 End: 09-24-2023 Tobacco smoking status Never smoked tobacco (finding) [facility] Tobacco smoking status Never [facility] Start: 09-24-2023 End: 11-23-2024 Sex Assigned At Female [facility] Start: 10-28-2023 End: 11-23-2024 [...] Carson galo [place] Clinical Notes 02-04-2023 to 06-18-2025 Vibha Jordan LPN - 11/23/2024 9:30 AM ESTEaston Keene DO - 11/16/2023 11:20 AM EST Note Date & Type Note Facility 06-18-2025 Note SUBJECTIVE Reason for Visit: Teetee Hernandez is a 55 y.o. year old female patient being seen for status post ablation 05/21/2025. HPI: Teetee Hernandez is a 55 y.o. year old female with significant medical history of SVT ablation at [facility] approximately 20 years ago, lupus/RA arthritis, hypothyroidism, GERD, left-sided invasive breast cancer s/p bilateral mastectomy in 2012. During an ED visit, she was found to have atrial fibrillation after adenosine was given for presumed SVT. At that time, Dr. Correia advised against anticoagulation due to a low TOY?DS?-VASc score of 1. She later followed with Dr. Todd Donald, who confirmed atrial fibrillation by EKG in February 2024, and she was continued on aspirin. Her PCP, Dr. Wright, placed her on a monitor for recurrent palpitations, which documented SVT likely representing atrial flutter on April 06, 2025. She was unaware of this episode, attributing her symptoms to heat and activity at the time. She reports brief, nonsustained palpitations since her ablation years ago, though she had done well overall, as her prior SVT episodes were -related and reliably terminated with adenosine. Patient underwent EP study on 05/21/25 with no inducible arrhythmia; ablation not performed. 06/18/2025 office visit: Patient was seen and evaluated in the office today. She reports experiencing a few episodes of palpitations over the past several months. She denies chest pain, shortness of breath, or lower extremity edema. She did, however, describe a recent episode of palpitations associated with dizziness while walking, though she denies any presyncope or syncopal events. I discussed in detail the indication for a loop recorder. The patient expressed interest and is agreeable to further evaluation of her symptoms. Medical History[1] Surgical History[2] Problem List[3] family history includes Atrial fibrillation in her father; CABG (age of onset: 59) in her mother; Coronary artery disease in her father and mother; Dementia in her mother; Diabetes in her mother; Heart attack (age of onset: 62) in her father; Stroke (age of onset: 56) in her father. Social History[4] OBJECTIVE Visit Vitals LMP (LMP Unknown) OB Status Hysterectomy Smoking Status Never Physical Exam Constitutional: General Appearance: well-developed, appears stated age. Level of Distress: no acute distress. Neck: Jugular Veins: normal jugular venous pressure. Lungs: Auscultation: no rales or rhonchi and normal breath sounds. Cardiovascular: Rate And Rhythm: regular Heart Sounds: normal S1 and s2; Systolic Murmur: not heard. Diastolic Murmur: not heard. Extremities: no edema Peripheral Pulses: Pulses: full and equal in all extremities except if noted. Abdomen: Inspection and Palpation: non distended or tender and soft. Musculoskeletal: Inspection: no joint tenderness or swelling. Neurologic: Gait: normal gait. Psychiatric: Mental Status: alert and normal affect. Skin: Inspection and Palpation: warm and dry. Allergies: Allergies[5] Outpatient Medications: Current Outpatient Medications Medication Instructions aspirin 81 mg EC tablet Daily RT calcium carbonate 600 mg calcium (1,500 mg) tablet Daily RT cholecalciferol (Vitamin D-3) 25 MCG (1000 UT) capsule 1 capsule hydroxychloroquine (Plaquenil) 200 mg tablet TAKE 1 AND 1/2 TABLETS BY MOUTH IN THE MORNING levothyroxine (Synthroid, Levoxyl) 100 mcg tablet Take 1 microgram every day by oral route for 90 days. liothyronine (Cytomel) 5 mcg tablet Take 1 tablet every day by oral route for 90 days. magnesium oxide 500 mg capsule 1 each, Daily RT methylPREDNISolone (MEDROL) 4 mg, oral, Daily, TAKE 1/2 TABLET BY MOUTH EVERY DAY NEEDED pantoprazole (ProtoNix) 40 mg EC tablet Every evening tofacitinib ER (XELJANZ XR) 11 mg, Daily triamcinolone (Kenalog) 0.1 % oral paste Mouth/Throat, As needed Recent Labs: Admission on 05/21/2025, Discharged on 05/21/2025 Component Date Value Ventricular Rate 05/21/2025 69 Atrial Rate 05/21/2025 69 DC Interval 05/21/2025 162 QRS DURATION 05/21/2025 80 QT Interval 05/21/2025 404 QTC CALCULATION(BAZETT) 05/21/2025 432 P [place] 05/21/2025 61 R-[place] 05/21/2025 56 T Wave [place] 05/21/2025 41 Activated Clotting Time 05/21/2025 140 Activated Clotting Time 05/21/2025 237 (H) I have personally reviewed and anaylzed the following laboratory results above. These findings have been analyzed in the context of the patient's clinical presentation. Cardiovascular Diagnostic Studies: COMPREHENSIVE EP STUDY PROCEDURE NOTE 05/21/2025 DATE OF PROCEDURE: 05/21/2025 PERFORMING PHYSICIAN: Dr. Hiram Krause INDICATIONS FOR PROCEDURE: 1. History of SVT. CONSENT: Patient LOCATION: EP Lab PROCEDURAL SEDATION: Versed and Fentanyl. Monitoring: Cardiac telemetry, Blood pressure, continuous pulse oxymetry. Moderate sedation was administered by the sedation nurse under my supervision (more content not included)... [facility] 05-21-2025 Note COMPREHENSIVE EP ANGEL DY PROCEDURE NOTE DATE OF PROCEDURE: 05/21/2025 PERFORMING PHYSICIAN: Dr. Hiram Krause INDICATIONS FOR PROCEDURE: 1. History of SVT. CONSENT: Patient LOCATION: EP Lab PROCEDURAL SEDATION: Versed and Fentanyl. Monitoring: Cardiac telemetry, Blood pressure, continuous pulse oxymetry. Moderate sedation was administered by the sedation nurse under my supervision. Intraprocedural face to face sedation time: 43min. FLUROSCOPY: 9minutes/ 6mGy EBL: 15cc SPECIMEN REMOVED: None PREPARATION: Preoperative antibiotics was administered. PROCEDURES PERFORMED: 1. Ultrasound guided vascular access for 5Fx2,8Fx2 venous sheaths as documented below in procedure note and image stored in PACS. 2. Comprehensive EP study which includes right atrial recording and pacing, His bundle recording and right ventricular recording and pacing. PROCEDURE NOTE: EP study was performed. The risks, benefits and alternatives of the procedure were discussed with the patient and family who agreed to proceed. Please refer to my office consult note for details of the discussion and of indications. mervin Patient was brought to the EP lab in the post absorptive state. A procedural pause was performed verifying the patient, the procedure. The right groin was prepped and draped in the usual sterile fashion. Preoperative antibiotics IV Ancef was administered. Ultrasound was used to image the right femoral veins and it was noted to be patent and this was used for vessel entry as noted below. After infiltration with 1% lidocaine, 4 venous sheath was placed in the right. Details of catheters placed as follows. RFV: 5Fx2 RV: [place] Quad/Anne, CRD-2 - His, 8F x2: EZ steer to CS Once catheter was in position, baseline intervals were noted as follows. At baseline, he was noted to have [place] QRS with normal intervals. Following this, an EP study was performed. AV Wenckebach was noted at 440milliseconds with a block at the AV node level. Thereafter, AEST was performed with no AH jump , AVNERP was 600/390ms and atrial ERP was also observed at 600/290milliseconds. Isuprel was started and increased to 5mcg/min and repeat EP study with and without Isuprel did not induce any tachycardia. Since no SVT was induced, no ablation was performed. Sheaths were removed and hemostasis achieved. The patient appeared to tolerate the procedure well and was returned to his room in stable condition. No complications were immediately observed. AHms 76 HVms 63 VERPms 600/240, [place] condunction+ AV Wenkebach ms 440 AH jump ms NA AVNERP ms 600/390 AERP ms 600/290 POST PROCEDURE DIAGNOSIS IMPRESSION: 1. EP study with no inducible arrhythmia RECOMMENDATIONS: 1. Follow up with EP. Hiram Krause MD Cardiac Electrophysiology [facility] [facility] Patient: Teetee Dhaliwal cGinnis Procedure Information Date/Time: 05/21/25829 Procedures: Electrophysiology procedure Ablation atrial flutter Location: [facility] POOL INSTALLER 1 EP / [facility] VASCULAR LAB (Cath) Providers: Hiram Krause MD Clinical information reviewed: Allergies Meds OB Status Physical Exam Airway Mallampati: II TM distance: >3 FB Neck ROM: full Cardiovascular Dental Pulmonary Neurological Abdominal Anesthesia Plan ASA 3 CSE Anesthetic plan and risks discussed with patient. Use of blood products discussed with patient who. Additional Equipment Requests [facility] 04-10-2025 Note [place] Elect[place]iology Consult Note [place] [facility] Reason for visit: HPI: Teetee Hernandez is a 55 y.o. year old with past medical history of SVT ablation at [facility] approximately 20 years ago, lupus/RA arthritis, hypothyroidism, [...] She has subsequently followed up with Dr.Samar Donald who had followed her and confirmed the [...] Use: Not At Risk (09/24/2023) Received from [facility] AUDIT-C Frequency of Alcohol Consumption: Never Average Number of Drinks: 1 or 2 Frequency of Binge Drinking: Weekly Financial Resource Strain: Not on file Food Insecurity: Not on file Transportation Needs: Not on file Physical Activity: Not on file Stress: Not on file Social Connections: Not on file Intimate Partner Violence: Unknown (02/23/2024) [place] Safety & Environment Fear of Current or [...] an A-fib ab (more content not included)... [facility] 03-09-2025 Note Attestation signed by [...] of 10/28, patient says she did in [place] on 08/27 and will arrange to get these to us - Agree with exercises to help with fatigue - Handicap lulu given on 10/19/24 Plan: - Continue Plaquenil [...] is candidate f (more content not included)... [facility] 12-13-2024 Note [facility] Note Reason for cardiology [...] post ablation about 20 years ago at [facility]. History of pericarditis remotely. She has history of lupus/rheumatoid arthritis, hypothyroidism, and GERD. She presented to [facility] ED 02/05/2024 for palpitations and SOB. [...] did not advise anticoagulation due to low [id number] score of 1. Few weeks ago she [...] levothyroxine (Synthroid, Levoxyl (more content not included)... [facility] 11-23-2024 History of Present illness [...] nursing note reviewed. Exam conducted with a media supervisor present. Vitals: Estimated body mass index is [...] Easton Keene DO documented in this encounter [facility] 10-19-2024 Note Attestation signed by Tomas Clinton [...] of 10/28, patient says she did in [place] on 08/27 and will arrange to get [...] Seen by Dr Clinton and Dr Matamoros [facility] 11-16-2023 History of Present illness [...] Easton Keene DO documented in this encounter [facility] 03-03-2023 Note Chief Complaint consultation for LLQ pain, epigastric pain and diarrhea [facility] 53 [facility] female presents on [...] History of pericar (more content not included)... [facility] Comment on above: Result Comment: Elec tronically [...] authenticated by: IDA SOTO Date: 2023-02-04 18:18 [facility] 02-04-2023 Note PROCEDURE: XR [...] authenticated by: IDA SOTO Date: 2023-02-04 18:17 [facility] 02-04-2023 Note PROCEDURE: XR FOOT R T MIN 3 VIEWS COMPARISON: None. HISTORY: Rheumatoid factor positive rheumatoid arthritis FINDINGS: BONES:No acute fracture or dislocation. Mild enthesopathic spurring of the calcaneus at the Achilles insertion. SOFT TISSUES:Negative. No visible soft tissue swelling. EFFUSION:None visible. OTHER: Negative. IMPRESSION: Mild calcaneal Achilles enthesopathy Electronically authenticated by: IDA SOTO Date: 2023-02-04 18:16 [facility] Evaluation + Plan note No data available for this section General Surgery [place] [facility] note Diagnosis Encounter for repeat Pap smear due to previous insuff cervical cells [facility] Diagnosis Well woman exam with routine gynecological exam Routine gynecological examination Breast cancer screening by mammogram Encounter for screening for osteoporosis [facility] No data available for this section [facility] Surgery [place] Progress note No data available for this section [facility] [place] Summary Purpose Family History No Family History Records FoundNo Family History Records FoundNo Family History Records FoundNo Family History Records FoundNo Family History Records Found Advance Directives No Advanced Directives Records FoundNo Advanced Directives Records FoundNo Advanced Directives Records FoundNo Advanced Directives Records FoundNo Advanced Directives Records Found Additional Source Comments INFORMATION SOURCE (unrecogn ized section and content) DATE CREATED AUTHOR 03/16/2021 [facility] DATE CREATED AUTHOR AUTHOR'S ORGANIZ ATION 02/15/2023 [facility] DATE CREATED AUTHOR AUTHOR'S ORGANIZ ATION 04/08/2023 [facility] DATE CREATED AUTHOR AUTHOR'S ORGANIZ ATION 11/25/2024 [facility] dical Specialists [facility] DATE CREATED AUTHOR AUTHOR'S ORGANIZ ATION 06/19/2025 [facility] Patient Care team informatio n (unrecognized section and content) Hvac Operations Technician Relationship Specialty Start Date End Date Mariza Wright MD [address] [place] [address] PCP - General 09/27/23 Hvac Operations Technician Relationship Specialty Start Date End Date Mariza Wright MD [address] [place] [address] PCP - General 09/27/23 Hvac Operations Technician Relationship Specialty Start Date End Date Mariza Wright MD [address] [place] [address] PCP - General 09/27/23 Hvac Operations Technician Relationship Specialty Start Date End Date Mariza Wright MD [address] [place] [address] PCP - General 09/27/23 Reason for Visit [...] BE BASED ON THE PRIMARY CLINICAL RECORDS. [facility]. provides no warranty or guarantee of the accuracy or completeness of information in this document.
--- OUTSIDE RECORDS SUMMARY | 2025-06-21 09:51 | XMS_ITS | Encounter Summary ---
Author Organization [facility] Address [address] [place] [address] Care Team Providers Care Feeder Switchboard Operator Name Role Phone Navi Wright MD Primary Care Provider [phone] Encounter Details Date Type Department Care Team (Late Contact Info) Description 12/06/2024 Orders Only [facility] [address] [place] [address] Irma Pearl LPN [address] [place] [id number] Social History Tobacco Use Types Packs/Day Years Used Date Smoking Tobacco: Never Alcohol Use Standard Drinks/Week Comments Yes 0 (1 standard drink = 0.6 oz pur e alcohol) AUDIT-C Answer Date Recorded Q1: How often do you have a drink containing alc ohol? Never 09/24/2023 Q2: How many drinks containi ng alcohol do you have on a typical day when you are drinking? 1 or 2 09/24/2023 Q3: How often do you have six or more drinks on one occasion? Weekly 09/24/2023 Comments No Sex and Gender Information Value Date Recorded Sex Assigned at Not on file Legal Sex Female 8:06 PM EDT Gender Identity Female 09/27/2023 9:22 PM EST Sexual Orientation Not on file documented as of this encounter Plan of Treatment Upcoming Encounters Date Type Department Care Team (Late Contact Info) Description 11/28/2025 1:00 PM EST Office Visit [facility] [address] [place] [phone] Adrian Keene DO [address] [place] [address] documented as of this encounter Procedures Procedure Name Priority Date/Time Associated Diagnosis Comments PAP SMEAR Routine 11/23/2024 12:00 AM EST documented in this encounter Results * Pap Smear (11/23/2024 12:00 AM EST) Swab Cervical swab / Unknown us [facility] CYTOLOGY ORDERABLES Final Result EXTERNAL LAB documented in this encounter Visit Diagnoses Not on filedocumented in this encounter Care Teams Feeder Switchboard Operator Relationship Specialty Start Date End Date Navi Wright MD PCP - General 09/27/23 documented as of this encounter
--- OUTSIDE RECORDS SUMMARY | 2025-06-21 09:51 | XMS_ITS | Clinical Summary ---
Author Organization [facility] Address [address] [place], [place] [id number] Care Team Providers Care Vessel Scrapper Helper Name Role Phone Eder Wright (Hist) Primary [...] 01/23/2018 Shingrix Vaccine (1 of 2) 01/23/2018 Influenza Vaccine (#1) 2025 Insurance [facility] Care Teams Vessel Scrapper Helper Relationship Specialty Start Date End Date Eder Wright (Hist) [address] [place] [address] PCP - General 07/03/14
--- OUTSIDE RECORDS SUMMARY | 2025-06-21 09:51 | XMS_ITS | Clinical Summary ---
Author Organization [facility] Address [address] [place] [address] Care Team Providers Care Account Service Representative Name Role Phone Navi Wright MD Primary Care Provider [phone] Allergies Active Allergy Reactions Criticality Noted Date Comments Benzoyl Peroxide 09/20/2023 Other Reaction(s): burning/red rash Sulfa Antibiotics 09/20/2023 Other Reaction(s): rash/nausea Other Reaction(s): Other, Unknown Sulfamethoxazole-Trimethopri m Rash Low 09/20/2023 Wound Dressing Adhesive Unknown Low 09/21/2014 Other Reaction(s): redness/sores Other reaction(s): Rash, Other, redness/sores Other Reaction(s): Rash, Other Other Reaction(s): Hives / Skin Rash Medications tofacitinib ER (Xeljanz XR) 11 MG tablet sustained-relea se 24 hour Take 11 mg by mouth in the morning. Active liothyronine (Cytomel) 5 MCG tablet Take 5 mcg by mouth in the morning. Active pantoprazole (ProtoNix) 40 MG EC tablet Take 40 mg by mouth in the evening Active levothyroxine (Synthroid, Levoxyl) 100 MCG tablet Take 100 mcg by mouth in the morning. Take on an empty stomach.. Active aspirin 81 MG chewable tablet Chew 81 mg 1 (one) time 02/26/2023 Active calcium carbonate 1500 (600 Ca) MG tablet Take 1,500 mg by mouth in the morning. Active Magnesium Oxide -Mg Supplement (RA Magnesium) 500 MG capsule Take 1 each by mouth in the morning. Active Family History Medical History Relation Name Comments CVA (cerebral infarction) Father Heart disease Father Diabetes Mother Heart disease Mother Relation Name Status Comments Daughter Alive Father Mother Son Alive Social History Tobacco Use Types Packs/Day Years Used Date Smoking Tobacco: Never Tobacco Cessation:Counseling Given: Not Answered [...] PM EST Sexual Orientation Not on file Last Filed Vital Signs Vital Sign Reading Time Taken Comments Blood Pressure 124/72 11/23/2024 9:55 AM EST Pulse - - Temperature - - Respiratory Rate - - Oxygen Saturation - - Inhaled Oxygen Concentration - - Weight 69.9 kg (154 lb) 11/23/2024 9:55 AM EST Height 165.1 cm (5' 5 ) 09/23/2022 12:00 PM EST Body Mass Index 25.63 09/23/2022 12:00 PM EST Plan of Treatment Upcoming Encounters Date Type Department Care Team (Late st Contact Info) Description 11/28/2025 1:00 PM EST Office Visit [facility] [address] [place] [phone] Adrian Keene DO [address] [place], [place] [id number] Health Maintenance Due Date Last Done Comments CT Colonography 1968 FIT 1968 FOBT 1968 Sigmoidoscopy 1968 Mammogram 2008 FIT-DNA 01/27/2025 01/27/2022, 01/15/2021, 03/04 Influenza Vaccine (#1) 2025 07/06/2024 Pap Smear 11/23/2027 11/23/2024, 11/16/2023, 12/10/2021 Cervical Cancer Screening 11/16/2028 HPV/Cotest 11/16/2028 Colonoscopy 03/24/2033 03/24/2023, 07/24/2015 Colorectal Cancer Screening 03/24/2033 Procedures Procedure Name Priority Date/Time Associated Diagnosis Comments PAP SMEAR Routine 11/23/2024 12:00 AM EST from Last 3 Months or Most Recently Relevant to Health Maintenance Results * Pap Smear (11/23/2024 12:00 AM EST) Swab Cervical swab / Unknown [facility] CYTOLOGY ORDERABLES Final Result EXTERNAL LAB from Last 3 Months or Most Recently Relevant to Health Maintenance Insurance [facility] Care Teams Account Service Representative Relationship Specialty Start Date End Date Navi Wright MD PCP - General 09/27/23
--- OUTSIDE RECORDS SUMMARY | 2025-06-21 09:52 | XMS_ITS | Patient Health Record ---
Author Organization [facility] in [place] Address [address] [place] [address] Care Team Providers Care Lime Kiln Operator Name Role Phone Eder Wright Primary Care Provider [phone] Allergies Allergen (clinical drug ingredient) Drug/Non Drug Allergy documented on EMR Reaction Allergy Type Onset Date Status Adhesive rash Allergy Active Substance with sulfonamide structure and antibacterial mechanism of action (substance) Sulfa Antibiotics red face, lupus flare Drug Allergy Active Results Component Value Reference Range Notes CBC AUTO DIFF Reviewed date:08/30/2024 05:56:10 PM Interpretation: Performing Lab: Notes/Report: [facility] , White Blood Count 3.9 4.0-11.0 [...] 3/uL Performing Lab: see note ML - [facility] LB CPK Reviewed date:08/30/2024 05:56:10 PM Interpretation: Performing Lab: Notes/Report: [facility] , Creatine Kinase 246 26-192 U/L Performing Lab: see note ML - [facility] LB CRP Reviewed date:08/30/2024 05:56:10 PM Interpretation: Performing Lab: Notes/Report: [facility] , C Reactive Protein <0.50 <=0.50 mg/dL Performing Lab: see note ML - [facility] LB LIPID PROFILE Reviewed date:08/30/2024 05:56:10 PM Interpretation: Performing Lab: Notes/Report: [facility] , Triglycerides 85 <=150 mg/dL Cholesterol 242 <=200 mg/dL HDL Cholesterol 106 40-60 mg/dL > or =60 mg/dl - LOW CARDIOVASCULAR RISK <40 mg/dl - HIGH CARDIOVASCULAR RISK LDL Cholesterol Calculated 119.0 <100 mg/dl OPTIMAL 100-129 mg/dl NEAR OR ABOVE OPTIMAL 130-159 mg/dl BORDERLINE HIGH 160-189 mg/dl HIGH >190 mg/dl VERY HIGH VLDL CHOLESTEROL 17.0 Chol HDL Ratio 2.3 3.3 - 4.4 LOW RISK 4.4 - 7.1 AVERAGE RISK 7.1 - 11.0 MODERATE RISK >11.0 HIGH RISK Performing Lab: see note ML - [facility] LB PROF 14(COMP METB) Reviewed date:08/30/2024 05:56:10 PM Interpretation: Performing Lab: Notes/Report: [facility] , Sodium 139 136-145 mmol/L Potassium [...] 0.9 Performing Lab: see note ML - [facility] LB UA RANDOM Reviewed date:08/30/2024 05:56:10 PM Interpretation: Performing Lab: Notes/Report: [facility] , Color Urine YELLOW YELLOW Clarity Urine CLEAR CLEAR Specific [place] Urine >=1.030 1.005-1.025 pH Urine 6.0 5.0-9.0 Protein Urine TRACE NEG/TRACE mg/dL Glucose Urine UA NEGATIVE NEGATIVE mg/dL Bilirubin Urine NEGATIVE NEGATIVE Ketones Urine NEGATIVE NEGATIVE mg/dL Blood Urine NEGATIVE NEGATIVE Nitrite Urine NEGATIVE NEGATIVE Urobilinogen Urine 0.2 0.2-1.0 EU/dL Leukocyte Esterase Urine NEGATIVE NEGATIVE Performing Lab: see note ML - [facility] URINE T PROTEIN CREAT RATIO Reviewed date:08/30/2024 05:56:10 PM Interpretation: Performing Lab: Notes/Report: [facility] , Total Protein Urine Random 28.3 <=11.9 mg/dL Creatinine Urine Random 236.70 20.00-300.00 mg/d L Protein Creatinine Ratio Urine 0.12 Performing Lab: see note ML - [facility] LB Erythrocyte Sedimentation Ra te Reviewed date:08/30/2024 05:56:10 PM Interpretation: Performing Lab: Notes/Report: [facility] , Erythrocyte Sedimentation Rate 29 <=30 mm/hr Performing Lab: see note ML - [facility] LB C4+C3 Reviewed date:08/31/2024 06:24:35 PM Interpretation: Performing Lab: Notes/Report: [facility] , Complement C3, Serum 114 82-167 mg/dL Complement C4, Serum 17 12-38 mg/dL Performed at: [facility] [address] [id number] Sound Controller: Miles Obrien PhD, Phone: [phone] Performing Lab: see note - [facility] LB XR DEXA axial skeleton Reviewed date:09/17/2024 08:11:15 PM Interpretation: Performing Lab: Notes/Report: Source Facility: [place] [address] XRay Report Signed Patient: TEETEE SMALL MR#: [id number] : 1970 Acct:[id number] Age/Sex: 54 / F ADM Date: 09/14/24 Loc: RAD Attending Dr: Tomas Garsia Ordering Physician: Tomas Garsia I. Date of Service: 09/14/24 Procedure(s): XR DEXA axial skeleton Accession Number(s): [id number] cc: Tomas Garsia I.; Navi Wright M.D. [place] [address] Patient Name: TEETEE SMALL MRN: [id number] date: 1970 Sex: F Assigned Patient Location: [facility] Current Patient Location: Accession/Order Number: [id number] Exam Date: 09/14/2024 08:20 Report Date: 09/15/2024 [...] prevention and treatment of osteoporosis. Osteoporos Int. 2021;33(10):5775-5382. doi: 10.1007/y46907-345-20178-d. Epub 2021Jan 29. Erratum in: Osteoporos Int. 2021Apr 30;: PMID: [id number]; PMCID: [id number]. Electronically authenticated by: IDA SOTO Date: 09/15/2024 07:17 Dictated By: Ida Soto M.D. Signed By: 09/15/24719 DD/ 6 TD/TT: Tipple Oiler: PROF MILO BRAGA METB) Reviewed date:05/15/2025 08:09:11 PM Interpretation: Performing Lab: Notes/Report: [facility] , Sodium 138 136-145 mmol/L Potassium 4.6 3.5-5.1 mmol/L Chloride 101 98-107 mmol/L Carbon Dioxide 30.0 21.0-32.0 mmol/L Anion Gap 11.6 Glucose 118 74-106 mg/dL Blood Urea Nitrogen 22.0 7.0-18.0 mg/dL Creatinine 1.09 0.55-1.02 mg/dL Estimated GFR ( Mari >60 >=60 mL/min/1.73m 2 Estimated GFR (Non- Raquel 52 >=60 mL/min/1.73m 2 BUN Creatinine Ratio 20.2 Calcium 9.5 8.5-10.1 mg/dL Performing Lab: see note ML - [facility] LB Anti-dsDNA Antibodies Reviewed date:09/03/2024 12:27:12 PM Interpretation: Performing Lab: Notes/Report: [facility] , Anti-dsDNA Antibodies <1 0-9 IU/mL Negative <5 Equivocal 5 - 9 Positive >9 Performed at: - [facility] [place] [id number] Sound Controller: Miles Obrien PhD, Phone: [phone] Performing Lab: see note - [facility] LB Total Protein 24 Hour Urine Reviewed date:12/11/2024 02:06:33 PM Interpretation: Performing Lab: Notes/Report: [facility] , Total Protein Urine Random 8.3 <=11.9 mg/dL Total Volume 24 Hour Urine 2350 Total Protein 24 Hour Urine 195.1 <=149.1 mg/24 hr Performing Lab: see note ML - [facility] LB MYOGLOBIN Reviewed date:12/10/2024 10:11:52 AM Interpretation: Performing Lab: Notes/Report: [facility] , Myoglobin 39 9-82 ng/mL Performing Lab: see note - [facility] LB MICROALBUMIN, RAND UR Reviewed date:12/10/2024 10:11:52 AM Interpretation: Performing Lab: Notes/Report: [facility] , Microalbumin Urine Random <1.3 <=30.0 mg/dL Performing Lab: see note ML - [facility] LB CPK Reviewed date:12/10/2024 10:11:52 AM Interpretation: Performing Lab: Notes/Report: [facility] , Creatine Kinase 127 26-192 U/L Performing Lab: see note ML - [facility] LB CBC AUTO DIFF Reviewed date:12/10/2024 10:11:52 AM Interpretation: Performing Lab: Notes/Report: [facility] , White Blood Count 4.6 4.0-11.0 [...] 3/uL Performing Lab: see note ML - [facility] LB CBC AUTO DIFF Reviewed date:05/15/2025 08:09:11 PM Interpretation: Performing Lab: Notes/Report: [facility] , White Blood Count 7.3 4.0-11.0 10 3/uL Red Blood Count 4.10 4.20-5.40 10 6/uL Hemoglobin 12.6 12.0-16.0 g/dL Hematocrit 38.6 36.0-48.0 % Mean Corpuscular Volume 94.1 81.0-99.0 fL Mean Corpuscular Hemoglobin 30.7 26.7-34.0 pg Mean Corpuscular HGB Conc 32.6 29.9-35.2 g/dL Red Cell Distribution Width 13.2 11.0-15.0 % Platelet Count 481 150-450 10 3/uL Mean Platelet Volume 9.8 9.5-13.5 fL Neutrophils Percent Auto 85.9 43.0-75.0 % Lymphocytes Percent Auto 10.4 20.5-60.0 % Monocytes Percent Auto 3.6 1.7-12.0 % Eosinophils Percent Auto 0.0 0.9-7.0 % Basophils Percent Auto 0.0 0.2-2.0 % Immature Granulocytes Pct Auto 0.1 0.0-0.5 % Neutrophils Absolute Auto 6.3 1.4-6.5 10 3/uL Lymphocytes Absolute Auto 0.8 1.2-3.8 10 3/uL Monocytes Absolute Auto 0.3 0.3-0.8 10 3/uL Eosinophils Absolute Auto 0.0 0.0-0.7 10 3/uL Basophils Absolute Auto 0.0 0.0-0.1 10 3/uL Immature Granulocytes Abs Auto 0.01 0.00-0.03 10 3/uL Performing Lab: see note ML - [facility] LB TSH Reviewed date:03/04/2025 04:28:11 PM Interpretation: Performing Lab: Notes/Report: [facility] , Thyroid Stimulating Hormone 2.913 0.358-3.740 u IU/mL Performing Lab: see note ML - [facility] LB PROF 14(COMP METB) Reviewed date:03/04/2025 04:28:11 PM Interpretation: Performing Lab: Notes/Report: [facility] , Sodium 142 136-145 mmol/L Potassium 4.0 3.5-5.1 mmol/L Chloride 103 98-107 mmol/L Carbon Dioxide 30.4 21.0-32.0 mmol/L Anion Gap 12.6 Glucose 92 74-106 mg/dL Blood Urea Nitrogen 21.0 7.0-18.0 mg/dL Creatinine 0.89 0.55-1.02 mg/dL Estimated GFR ( Mari >60 >=60 mL/min/1.73m 2 Estimated GFR (Non- Raquel >60 >=60 mL/min/1.73m 2 BUN Creatinine Ratio 23.6 Calcium 9.0 8.5-10.1 mg/dL Bilirubin Total 0.5 0.2-1.0 mg/dL Aspartate Amino Transferase 28 15-37 U/L Alanine Aminotransferase 36 14-59 U/L Alkaline Phosphatase 55 46-116 U/L Total Protein 7.8 6.4-8.2 g/dL Albumin Level 3.7 3.4-5.0 g/dL Globulin 4.1 Albumin Globulin Ratio 0.9 Performing Lab: see note ML - [facility] LIPID PROFILE Reviewed date:03/04/2025 04:28:11 PM Interpretation: Performing Lab: Notes/Report: [facility] , Triglycerides 68 <=150 mg/dL Cholesterol 262 <=200 mg/dL HDL Cholesterol 115 40-60 mg/dL > or =60 mg/dl - LOW CARDIOVASCULAR RISK <40 mg/dl - HIGH CARDIOVASCULAR RISK LDL Cholesterol Calculated 134.0 <100 mg/dl OPTIMAL 100-129 mg/dl NEAR OR ABOVE OPTIMAL 130-159 mg/dl BORDERLINE HIGH 160-189 mg/dl HIGH >190 mg/dl VERY HIGH VLDL CHOLESTEROL 13.6 Chol HDL Ratio 2.3 3.3 - 4.4 LOW RISK 4.4 - 7.1 AVERAGE RISK 7.1 - 11.0 MODERATE RISK >11.0 HIGH RISK Performing Lab: see note ML - [facility] GLYCOHEMOGLOBIN A1C Reviewed date:03/04/2025 04:28:11 PM Interpretation: Performing Lab: Notes/Report: [facility] , Glycohemoglobin A1C 6.1 4.5-6.2 % ADA RECOMMENDED LIMIT 4.0 - 6.0 ADA THERAPEUTIC TARGET < 7.0 ACTION SUGGESTED > 7.0 Estimated Average Glucose 128 Performing Lab: see note ML - [facility] CBC AUTO DIFF Reviewed date:03/04/2025 04:28:11 PM Interpretation: Performing Lab: Notes/Report: [facility] , White Blood Count 4.2 4.0-11.0 10 3/uL Red Blood Count 4.06 4.20-5.40 10 6/uL Hemoglobin 12.8 12.0-16.0 g/dL Hematocrit 38.6 36.0-48.0 % Mean Corpuscular Volume 95.1 81.0-99.0 fL Mean Corpuscular Hemoglobin 31.5 26.7-34.0 pg Mean Corpuscular HGB Conc 33.2 29.9-35.2 g/dL Red Cell Distribution Width 13.4 11.0-15.0 % Platelet Count 305 150-450 10 3/uL Mean Platelet Volume 9.6 9.5-13.5 fL Neutrophils Percent Auto 48.0 43.0-75.0 % Lymphocytes Percent Auto 35.0 20.5-60.0 % Monocytes Percent Auto 14.4 1.7-12.0 % Eosinophils Percent Auto 1.7 0.9-7.0 % Basophils Percent Auto 0.9 0.2-2.0 % Immature Granulocytes Pct Auto 0.0 0.0-0.5 % Neutrophils Absolute Auto 2.0 1.4-6.5 10 3/uL Lymphocytes Absolute Auto 1.5 1.2-3.8 10 3/uL Monocytes Absolute Auto 0.6 0.3-0.8 10 3/uL Eosinophils Absolute Auto 0.1 0.0-0.7 10 3/uL Basophils Absolute Auto 0.0 0.0-0.1 10 3/uL Immature Granulocytes Abs Auto 0.00 0.00-0.03 10 3/uL Performing Lab: see note ML - [facility] LB IGP,Aptima HPV,Age Gdln Reviewed date:11/28/2024 06:45:38 PM Interpretation: Performing Lab: Notes/Report: SPATULA-ALONE VAG[facility] , Age Gdln ACOG Testing Note . TESTS RESULT FLAG UNITS REF RANGE LAB ---- Clinician Provided Cytology Information Source.............Vagina No. of containers..01 ThinPrep Vial Age Algo ACOG Sona... ---- FLAG LEGEND: L-Low Normal,H-High Normal,LL-Alert Low,HH-Alert High <-Panic Low,>-Panic High,A-Abnormal,AA-Critical Abnormal ---- Performed at: 01 =G [address] [id number] Jerrica Kam MD, IGP, Aptima HPV, rfx 16/18,45 Note . TESTS RESULT FLAG UNITS REF RANGE LAB ---- DIAGNOSIS: 02 NEGATIVE FOR INTRAEPITHELIAL LESION OR MALIGNANCY. Specimen adequacy: 02 Satisfactory for evaluation. No endocervical cells are present. This is consistent with a history of hysterectomy. Performed by: 02 Rosa Francis, Book Publisher (ASCP) . 02 Note: Note 02 The [...] Criteria not met, HPV Genotype not performed. ---- FLAG LEGEND: L-Low Normal,H-High Normal,LL-Alert Low,HH-Alert High <-Panic Low,>-Panic High,A-Abnormal,AA-Critical Abnormal ---- [facility]formed at: [facility] [address] Jerrica Kam MD, HPV Aptima Negative Negative This nucleic acid amplification test detects fourteen high- risk HPV types (16,18,31,33,35,39,45,51,52, 56,58,59,66,68) without differentiation. Performed at: =[facility] [id number] Sound Controller: Jerrica Kam MD, Phone: [phone] Performed at: [facility] [address] [id number] Sound Controller: Jerrica Kam MD, Phone: [phone] Performing Lab: see note - [facility] LB Reason For Referral Diagnosis 1 Supraventricular tac hycardia (I47.1) Referral Organization [facility] Referring Provider First Name Eder Referring Provider Last Name Shakadelia [facility]erred Provider Specialty Cardiology Referral Priority Routine Medications Medication SIG (Take, Route, Frequency, Duration) Notes Start Date End Date Status Pantoprazole Sodium 40 MG TAKE 1 TABLET BY MOUTH DAILY IN THE EVENING AT BEDTIME; Duration: 90 Active Vitamin E 400 UNIT 1 capsule Orally Once a day; Duration: 90 days Active Levothyroxine Sodium 100 MCG TAKE 1 TABLET BY MOUTH ONCE DAILY IN THE MORNING ON AN EMPTY STOMACH; Duration: 90 Active Cholecalciferol 25 MCG (1000 UT) 1 tablet Orally Once a day Active Amoxicillin-Pot Clavulanate 875-125 MG 1 tablet Orally every 12 hrs; Duration: 10 days 05/11/2025 Active Exemestane 25 MG 1 tablet with a meal Orally Once a day Active Hydroxychloroquine Sulfate 300mg Daily Active Aspirin 81 81 MG 1 tablet Orally Once a day; Duration: 90 days Active Xeljanz XR 11 MG 1 tablet Orally Once a day Active Liothyronine Sodium 5 MCG TAKE 1 TABLET BY MOUTH ON AN EMPTY STOMACH ONCE DAILY; Duration: 90 days Active predniSONE 20 MG 3 tablets Orally Once a day; Duration: 5 days 05/11/2025 Active Calcium + D3 Active Magnesium Oxide 500 MG 1 tablet as neede d Orally Once a day; Duration: 90 days Active Benzonatate 200 MG 1 capsule Orally Three times a day; Duration: 7 days 05/11/2025 Active Social History Tobacco Use: Social History [...] Weekly (3 points) Points 3 Interpretation Positive AUDIT-C (Standard) Question Answer Notes Did you have a drink containing alcohol in the p ast year? No Points 0 Interpretation Negative Problems Problem Type SNOMED Code ICD Code Onset Dates Problem Status W/U Status Risk Notes Problem Information temporarily unavailable Hypothyroidism, unspecified (E03.9) Active confirmed Problem Information temporarily unavailable Gastro-esophageal reflux disease without esophagitis (K21.9) Active confirmed Problem Information temporarily unavailable Supraventricular tachycardia (I47.1) Active confirmed Problem Information temporarily unavailable Unspecified atrial fibrillation (I48.91) Active confirmed Problem Information temporarily unavailable Acute recurrent frontal sinusitis (J01.11) Active confirmed Problem Information temporarily unavailable Sebaceous cyst (L72.3) Active confirmed Problem Information temporarily unavailable Rheumatoid arthritis with rheumatoid factor, unspecified (M05.9) Active confirmed Problem Information temporarily unavailable Systemic lupus erythematosus, organ or system involvement unspecified (M32.10) Active confirmed Problem Information temporarily unavailable Pleurisy (R09.1) Active confirmed Problem Information temporarily unavailable Change in bowel habit (R19.4) Active confirmed Problem Information temporarily unavailable Cervical radiculopathy (M54.12) Active confirmed Problem Information temporarily unavailable Breast cancer (C50.919) Active confirmed Problem Information temporarily unavailable Well adult (Z00.00) Active confirmed Problem Information temporarily unavailable Acute bronchitis, unspecified organism (J20.9) Active confirmed Problem Information temporarily unavailable DDD [...] unavailable COVID-19 virus infection (U07.1) Active confirmed Vital Signs Heart Rate 81 /min 05/11/2025 Temperature 98.1 degrees Fahrenheit 05/11/2025 Oximetry 98 % 05/11/2025 Blood pressure diastolic 80 mm Hg 05/11/2025 Height 65 in 05/11/2025 Blood pressure systolic 128 mm Hg 05/11/2025 Weight 153.6 lbs 05/11/2025 BMI 25.56 kg/m2 05/11/2025 Procedures Procedure Date Ordered Date Performed Result Body Sit e *CARDIO Event Monitor 03/09/2025 N/A Encounters Encounter Location Date Provider Diagnosis [facility] [address] [place] [address] 06/12/2025 Eder Hoy [facility] [address] [place] [address] 12/07/2024 Eder Hoy Flank pain R10.9 [facility] [address] [place] [address] 03/09/2025 Eder Hoy Palpitations R00.2 [facility] [address] [place] [facility] [place] [address] 04/06/2025 Eder Wright Supraventricular tachycardia I47.1 [facility] [address] [place] [facility] [place] [address] 06/06/2025 Eder Wright [facility] [address] [place] [facility] [place] [address] 06/27/2024 Eder Wright [facility] [address] [place] [facility] [place] [address] 03/08/2025 Eder Wrigth Well adult Z00.00 [facility] [address] [place] [facility] [place] [place] [address] 05/11/2025 Eder Wright Acute bronchitis, unspecified organism J20.9 and Pleurisy R09.1 Assessments Encounter Date Diagnosis (ICD Code) Assessment Notes Treatment Notes Treatment Clinical Notes Section Notes 03/08/2025 Well adult (ICD-10 - Z00.00) 05/11/2025 Acute bronchitis, unspecified organism (ICD-10 - J20.9) Rest and drink more liquids, especially water. You may use a humidifier or vaporizer to help keep the drainage moist. Tvxp-jvy-ublkjxc Nasal Saline may help the stuffy and runny nose. Use Ibuprofen and or Tylenol as needed for fever, chills, body aches or pain. Children 5 years old should not be given jhwh-nwl-ddzuerf cough and cold medications such as guaifenesin and dextromethorphan. If you're over age 5, you may try jeei-bby-nynktqz cold medications such as guaifenesin and dextromethorphan, or multi-symptom cold reliever such as Dayquil to help reduce the symptoms. Antibiotics have been prescribed. You should take these until completed and follow the directions. Antibiotics can sometimes cause upset stomach, and in rare cases, serious allergic reactions or serious gastrointestinal problems. If you start having severe abdominal pain, severe vomiting, or bloody diarrhea, you should be reevaluated by your physician or urgent care immediately. Follow up with your Primary Care Provider or return to clinic if symptoms do not improve within 3-5 days. If you develop severe symptoms such as shortness of breath, repeated vomiting, coughing up blood, or chest pain you should go to the emergency room or call 911 05/11/2025 Pleurisy (ICD-10 - R09.1) 12/07/2024 Flank pain (ICD-10 - R10.9) 03/09/2025 Palpitations (ICD-10 - R00.2) 04/06/2025 Supraventricular tachycardia (ICD-10 - I47.1) Plan Of Treatment Pending Test Test Name Order Date Holter Test 02/07/2024 CMP (COMPLETE METABOLIC PANEL) 4 CMP (COMPLETE METABOLIC PANEL) 3 HEMOGLOBIN A1C (GLYCO) 02/05/2023 HEMOGLOBIN A1C (GLYCO) 02/24/2024 LIPID PANEL (CHOL/TRIG/HDL/LDL) 02/24/20 24 LIPID PANEL (CHOL/TRIG/HDL/LDL) 02/06/20 23 CBC WITH DIFF 02/05/2023 CBC WITH DIFF 02/24/2024 CT Abdomen and Pelvis w/contrast * 02/05 FREE T3 03/01/2024 FREE T4 03/01/2024 THYROID PANEL (T4/TSH/FREE T3) 3 ECHOCARDIO M/2D COMPLETE 02/07/2024 *CARDIO Event Monitor 03/09/2025 Insurance Providers Payer Name Payer Address Payer Phone Subscriber Number Group Number Insured Name Patient Relationship to Insured Coverage Start Date Coverage End Date [employer] [address] [place] [address] [id number] Teetee Newton Self - patient is the insured Medications Administered Medication Instructions Date of Administration Dosage Notes Dexamethasone, 4mg/mL 05/11/2025 12 mg Ketorolac Tromethamine 05/11/2025 60 mg Medical (General) History Medical History History ICD [...] and rectum K62.5 Surgical History Surgery Date(Month/Year) EGD and Colonoscopy 03/2023 Biopsy 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
[2025-06-21 10:11] LABS: Hematocrit 40.5 % (36.0-48.0); Hemoglobin 13.4 g/dL (12.0-16.0); Immature Granulocytes Abs Auto 0.00 10^3/uL (0.00-0.03); Immature Granulocytes Pct Auto 0.0 % (0.0-0.5); Lymphocytes Absolute Auto 1.3 10^3/uL (1.2-3.8); Mean Corpuscular HGB Conc 33.1 g/dL (29.9-35.2); Mean Corpuscular Hemoglobin 31.0 pg (26.7-34.0); Mean Corpuscular Volume 93.8 fL (81.0-99.0); Platelet Count 364 10^3/uL (150-450); Red Blood Count 4.32 10^6/uL (4.20-5.40); White Blood Count 4.6 10^3/uL (4.0-11.0)
[2025-06-21 10:12] LABS: Glucose Urine UA NEGATIVE (NEGATIVE)
[2025-06-21 11:05] LABS: Protein Creatinine Ratio Urine 0.18; Total Protein Urine Random 32.2 mg/dL (<=11.9)
[2025-06-21 11:42] LABS: Alanine Aminotransferase 34 U/L (14-59); Albumin Globulin Ratio 0.9; Albumin Level 3.8 g/dL (3.4-5.0); Alkaline Phosphatase 62 U/L (46-116); Anion Gap 10.9; Aspartate Amino Transferase 21 U/L (15-37); Blood Urea Nitrogen 20.0 mg/dL (7.0-18.0); Calcium 9.3 mg/dL (8.5-10.1); Carbon Dioxide 29.4 mmol/L (21.0-32.0); Chloride 105 mmol/L (98-107); Creatine Kinase 103 U/L (26-192); Estimated GFR (African America >60 (>=60 mL/min/1.73m^2); Estimated GFR (Non-African Ame 59 (>=60 mL/min/1.73m^2); Globulin 4.4 g/dL; Glucose 89 mg/dL (74-106); Potassium 4.3 mmol/L (3.5-5.1); Sodium 141 mmol/L (136-145); Total Protein 8.2 g/dL (6.4-8.2)
[2025-06-22 04:07] LABS: Vitamin B12 288 pg/mL (232-1245)
== END 2025-06-21 09:46 | disposition home or self-care (01) ==
LOC: LAB 09:45
PROVIDERS: PCP Family Medicine
DX: M32.9 Systemic lupus erythematosus, unspecified (principal); R53.83 Other fatigue
CPT/HCPCS: 36415; 80053; 81003; 82550; 82570; 82607; 84156; 85025; 85652; 86140; 86160; 86225